=== PATIENT | female | born 2000 | race Caucasian/White ===

== ENCOUNTER 2024-12-16 18:16 | Outpatient (OUT) | payer OTHER, SELFPAY ==
--- NOTE | 2024-12-16 | XR_ITS ---
[facility] [place] [id number] Patient Name: AYDE MOYA MRN: [id number] date: 2000 Sex: F Assigned Patient Location: [facility] Current Patient Location: [facility] Accession/Order Number: [id number] Exam Date: 12/16/2024 21:36 Report Date: 12/16/2024 21:39 At the request of: NON-STAFF PHYSICIAN MD Procedure: XR scoliosis survey Plain film thoracolumbar assessment HISTORY: Fusion of spine involving thoracic and lumbar region. History of lump in the thoracic spine region for 2 months. Development of pain in this region. A BB marker placed. Thoracolumbar fusion hardware present. No hardware failure present. Moderate thoracolumbar scoliosis seen. No vertebral acute bony findings. The paraspinal abnormality. XR/XR scoliosis survey IMPRESSION: Intact hardware. thoracolumbar scoliosis without acute bony findings seen. No obvious soft tissue abnormalities correspond with palpable abnormality. Impression dictated by: Christian Martinez M.D.12/16/2024 9:39 PM Dictation Location: [employer] Electronically authenticated by: [id number] Y Date: 12/16/2024 21:39
== END 2024-12-16 18:17 | disposition home or self-care (01) ==
PROVIDERS: PCP Nurse Practitioner Family
DX: M43.25 Fusion of spine, thoracolumbar region (principal)
CPT/HCPCS: 72082

== ENCOUNTER 2025-07-30 10:47 | Outpatient (OUT) | payer OTHER, SELFPAY ==
--- OUTSIDE RECORDS SUMMARY | 2025-07-20 23:59 | XMS_ITS | Continuity of Care Document ---
Author Organization [facility] Address Unknown Care Team Providers Care Fuel Testing Technician Name Role Phone LEIDA SOLARES Primary Care Physician [phone] Encounter FT_FIN [id number] Date(s): 04/21/25 - 07/20/[address] [place], [place] [address] Encounter Diagnosis Unspecified injury at unspecified level of cervical spinal cord, initial encounter(Final) - Scoliosis, unspecified(Final) - Arthrodesis status(Final) - Discharge Disposition: Home (Routine DC) Attending Physician: ROSEMARY MAX Referring Physician: ROSEMARY MAX Encounter Type: Recurring Allergies, Adverse Reactions, Alerts SubstanceCriticalitySeverityReactionReaction SeverityStatusAugmentinVomiting Active Treatment Plan Future Scheduled Tests Radiology* CT Spine Cervical w/o Contrast 06/26/25 * CT Spine Thoracic w/o Contrast 06/26/25 * MRI Spine Cervical w/o Contrast 11/27/24 * MRI Spine Lumbar w/o Contrast 11/27/24 * MRI Spine Thoracic w/o Contrast 11/27/24 Immunizations Given and Recorded VaccineDateStatusRefusal Reasondiphtheria/pertussis, acel/tetanus adult5/10/24 Givendiphtheria/pertussis, acel/tetanus adult04/20/15Recordedvaricella virus vaccine06/17/08Recordedvaricella virus gpzflba52/13/02Recordedinfluenza, whole 07/27/07Recordedpoliovirus vaccine, inactivated02/10/06Recordedpoliovirus vaccine, daflanphror13/13/02Recordedpoliovirus vaccine, inactivated04/26/01Recorded poliovirus vaccine, inactivated01/24/01Recordedmeasles/mumps/rubella virus vaccine 02/10/06Recordedmeasles/mumps/rubella virus qfgfbuw15/13/02RecordedDTaP, unspecified formulation02/10/06RecordedDTaP, unspecified formulation03/10/04 RecordedDTaP, unspecified mkctmihbdwq27/13/02RecordedDTaP, unspecified formulation04/26/01RecordedDTaP, unspecified formulation01/24/01Recordedhepatitis B pediatric quqpkoa96/13/02Recordedhepatitis B pediatric vaccine01/24/01Recorded hepatitis B pediatric vaccine00RecordedHib, unspecified ecwoiukbuuq65/13/02 RecordedHib, unspecified formulation04/26/01RecordedHib, unspecified formulation 01/24/01Recorded Not Given VaccineDateStatusRefusal Reasoninfluenza virus vaccine, inactivated09/24/24Not GivenRefused by parent, guardian, or patient - rescheduleinfluenza virus vaccine, nsjztqxnipp80/3/23Not GivenPatient Refusesinfluenza virus vaccine, fojmtegydqh98/9/20Not GivenPatient Refuses Medications Adderall 10 mg oral tablet 10 mg, 1 tab(s), Oral, qAM, 30 tab(s), Refill(s) 0, 30 days, [facility]/pharmacy #[id number], 172.7, cm, 05/28/25 7:37:00 EDT, Height/Length Dosing, 82.3, kg, 05/28/25 7:37:00 EDT, Weight Dosing Start Date: 06/23/25 Status: Ordered Medication Dispense Status: Completed Quantity: 30.0 Unit: tab(s) Total Allowed Fills: 1 Fills Dispensed: 0 Indications: Attention-deficit hyperactivity disorder, unspecified type; Adderall XR 10 mg Cap-ER 10 mg = 1 cap(s), Oral, qAM, dx F98.8 30 day supply, # 30 cap(s), Refills(s) 0, [id number] 172.7, cm, 05/28/25 7:37:00 EDT, Height/Length Dosing, 82.3, kg, 05/28/25 7:37:00 EDT, Weight Dosing Start Date: 06/23/25 Status: Ordered Medication Dispense Status: Completed Quantity: 30.0 Unit: cap(s) Total Allowed Fills: 1 Fills Dispensed: 0 Indications: Attention-deficit hyperactivity disorder, unspecified type; Claritin 10 mg Tab 10 mg = 1 tab(s), Oral, Daily, # 30 tab(s), Refills(s) 11, [id number], 172.7, cm,04/29/25 19:05:00 EDT, Height/Length Dosing, 80.6, kg, 04/29/25 19:05:00 EDT, Weight Dosing Start Date: 05/13/25 Status: Ordered Medication Dispense Status: Completed Quantity: 30.0 Unit: tab(s) Total Allowed Fills: 12 Fills Dispensed: 0 Indications: Allergy, unspecified, initial encounter; doxepin 3 mg oral tablet 3 mg = 1 tab(s), Oral, Once a day (at bedtime), # 30 tab(s), Refills(s) 1, [id number], 172.7, cm, 05/28/25 7:37:00 EDT, Height/Length Dosing, 82.3, kg, 05/28/25 7:37:00 EDT, Weight Dosing Start Date: 05/28/25 Status: Ordered Medication Dispense Status: Completed Quantity: 30.0 Unit: tab(s) Total Allowed Fills: 2 Fills Dispensed: 0 Indications: Insomnia, unspecified; escitalopram 10 mg Tab 10 mg = 1 tab(s), Oral, Daily, Take with 20mg tab for total daily dose of 30mg, # 90 tab(s), Refills(s) 3, [id number], 168, cm, 03/06/25 11:42:00 EDT, Height/Length Dosing, 83.1, kg, 03/06/25 11:42:00 EDT, Weight Dosing Start Date: 04/14/25 Status: Ordered Medication Dispense Status: Completed Quantity: 90.0 Unit: tab(s) Total Allowed Fills: 4 Fills Dispensed: 0 gabapentin 100 mg Cap 100 mg = 1 cap(s), Oral, TID, take 100mg capsule with 300mg capsule to = 400mg po TID, # 90 cap(s),Refills(s) 11, [id number], 168, cm, 03/06/25 11:42:00 EDT, Height/Length Dosing, 83.1, kg, 03/06/25 11:42:00 EDT, Weight Dosing Start Date: 03/06/25 Status: Ordered Medication Dispense Status: Completed Quantity: 90.0 Unit: cap(s) Total Allowed Fills: 12 Fills Dispensed: 0 Indications: Polyneuropathy, unspecified; Unspecified injury at unspecified level of cervical spinal cord, initial encounter; Other muscle spasm; Scoliosis, unspecified; gabapentin 300 mg Cap 300 mg = 1 cap(s), Oral, TID, # 90 cap(s), Refills(s) 11, [id number], 168, cm, 03/06/25 11:42:00 EDT, Height/Length Dosing, 83.1, kg, 03/06/25 11:42:00 EDT, Weight Dosing Start Date: 03/06/25 Status: Ordered Medication Dispense Status: Completed Quantity: 90.0 Unit: cap(s) Total Allowed Fills: 12 Fills Dispensed: 0 Indications: Polyneuropathy, unspecified; hydrOXYzine hydrochloride 25 mg Tab 25 mg = 1 tab(s), Oral, QID, PRN for anxiety, # 40 tab(s), Refills(s) 4, [id number], 172, cm, 01/22/25 15:54:00 EDT, Height/Length Dosing, 88.7, kg, 01/22/25 15:54:00 EDT, Weight Dosing Start Date: 03/05/25 Status: Ordered Medication Dispense Status: Completed Quantity: 40.0 Unit: tab(s) Total Allowed Fills: 5 Fills Dispensed: 0 Indications: Anxiety disorder, unspecified; ibuprofen 800 mg Tab 800 mg = 1 tab(s), Oral, q8hr, PRN Pain/Fever, # 30 tab(s), Refills(s) 0, Pharmacy: [facility]/pharmacy #[id number], 172.7, cm, 04/29/25 19:05:00 EDT, Height/Length Dosing, 80.6, kg, 04/29/25 19:05:00 EDT, WeightDosing Start Date: 04/29/25 Status: Ordered Medication Dispense Status: Completed Quantity: 30.0 Unit: tab(s) Total Allowed Fills: 1 Fills Dispensed: 0 June Fe 10/07 oral tablet TAKE 1 TABLET BY MOUTH EVERY DAY Start Date: 04/21/22 Status: Ordered Medication Dispense Status: Completed Total Allowed Fills: 1 Fills Dispensed: 0 Lexapro 20 mg Tab 20 mg = 1 tab(s), Oral, Daily, Take with 10mg tab for total daily dose of 30mg, # 90 tab(s), Refills(s) 3, Pharmacy: [facility]/pharmacy #[id number], 168, cm, 03/06/25 11:42:00 EDT, Height/Length Dosing, 83.1, kg, 03/06/25 11:42:00 EDT, Weight Dosing Start Date: 04/14/25 Status: Ordered Medication Dispense Status: Completed Quantity: 90.0 Unit: tab(s) Total Allowed Fills: 4 Fills Dispensed: 0 Indications: Depression, unspecified; Percocet 7.5 mg-325 mg oral tablet 1 tab(s), Oral, BID, 60 tab(s), Refill(s) 0, [facility]/pharmacy #[id number], 168, cm, 03/06/25 11:42:00 EDT, Height/Length Dosing, 83.1, kg, 03/06/25 11:42:00 EDT, Weight Dosing Start Date: 04/14/25 Status: Ordered Medication Dispense Status: Completed Quantity: 60.0 Unit: tab(s) Total Allowed Fills: 1 Fills Dispensed: 0 Indications: Pain in thoracic spine; Scoliosis, unspecified; Zofran ODT 4 mg Tab-Dis 4 mg = 1 tab(s), Oral, q8hr, PRN Nausea/Vomiting, # 12 tab(s), Refills(s) 0, Pharmacy: [facility]/pharmacy#[id number], 172.7, cm, 05/25/25 14:28:00 EDT, Height/Length Dosing, 81, kg, 05/25/25 14:28:00 EDT, Weight Dosing Start Date: 05/25/25 Status: Ordered Medication Dispense Status: Completed Quantity: 12.0 Unit: tab(s) Total Allowed Fills: 1 Fills Dispensed: 0 Problem List ConditionConfirmationCourseEffective DatesStatusHealth StatusInformantGait abnormalityConfirmedActiveAnxiety disorder due to medical conditionConfirmed ResolvedAsthmaConfirmedActiveADHDConfirmedActiveAttention deficit hyperactivity disorder (ADHD), combined type, moderateConfirmedActiveBronchitisConfirmedActive Complex posttraumatic stress disorderConfirmedActiveDepressionConfirmedActive Encounter for family education about Adverse Childhood Experience questionnaire scoreConfirmedActiveBilateral hip painConfirmedActiveHistory of adverse childhood experiencesConfirmedActiveInattentionConfirmedResolvedEar infections ConfirmedResolvedInjury of cervical spineConfirmedActiveInsomniaConfirmedActive Insulin resistanceConfirmedActiveFoot lacerationConfirmedActiveModerate major depressionConfirmedActiveNerve damageConfirmedActiveNeuropathyConfirmedActive Cervical spine painConfirmedActiveThoracic spine painConfirmedActiveBattered adultConfirmedActiveBack pain with history of spinal surgeryConfirmedActive PregnancyConfirmed12/26/20 - 5218YnykcajrIvawmqnloPidufvkkt0/4/19 - 12/26/19 ResolvedFallsConfirmedActiveRelationship dysfunctionConfirmedActiveRight groin painConfirmedActiveScoliosisConfirmedResolvedScoliosisConfirmedActiveSmoker1 ConfirmedActiveStrep throatConfirmedActiveSuspected autism disorderConfirmed ActiveWartConfirmedActive 1Added secondary to documentation in Social History. Procedures ProcedureDateRelated DiagnosisBody SiteStatusTonsillectomyCompletedtubes in ears Completed Social History Social History TypeResponseSmoking StatusNever (less than 100 in lifetime) entered on: 10/19/25Birth SexFemaleSex RepresentationFemale (finding) 1occasional Patient Care team information Care Team Personnel Name: ROSEMARY MAX Position: FT Ambulatory - Primary Care - ANDRES Member Role: Primary Care Physician Address: [address] [facility] [address] [place] [address]- Telecom: Name: Isaiah Cantrell MD Position: FT OB/PEDS Hospital Provider Member Role: CHECK PILOT Physician Address: [address] [place] [address] [address] [place] [address]- Telecom: Care Team Related Persons Name: JOSHUA SERRANO Name: PATTIE TORIBIO Name: SANNA MOYA Insurance Providers Guarantor name: AYDE MOYA Health Plan Information #: 1 Payer: [employer] Payer Identifier: [id number] Member Number: [id number] Group Number: [id number] Subscriber Identifier: [id number] Relationship to Subscriber: self Coverage Type: MEDICAID Coverage Verification Date: 25 Telecom: [phone] Address: [facility] [address] [place] [address]
--- OUTSIDE RECORDS SUMMARY | 2025-07-29 14:00 | XMS_ITS | Encounter Summary ---
Author Organization [facility] Address [address] [place] [address] Care Team Providers Care Skin Toggler Name Role Phone Unallocated, Noms Provider Primary Care Provi otis Reason for Visit * ReasonCommentsPre-op Visit Encounter Details DateTypeDepartmentCare Team (Latest Contact Info)Pkhyukapkhq64/11/2025 2:00 PM ESTConsult RYLEY Ochoa OBGYN [address] [place] [address] Stevenson Kiser DO [address] [facility] [address] [place], [facility]11 Pre-op examination; Request for sterilization; Pelvic congestion syndrome Social History Tobacco UseTypesPacks/DayYears UsedDateSmoking Tobacco: NeverSmokeless Tobacco: NeverAlcohol UseStandard Drinks/WeekCommentsNever0 (1 standard drink = 0.6 oz pure alcohol)CommentsNoSex and Gender InformationValueDate RecordedSex Assigned at BirthNot on fileLegal GxaBerale23/15/2023 6:42 PM EDTGender Identity Not on fileSexual OrientationNot on filedocumented as of this encounter Last Filed Vital Signs Vital SignReadingTime TakenCommentsBlood Myovynwj507/6207/29/2025 2:02 PM EST Pulse--Temperature--Respiratory Rate--Oxygen Saturation--Inhaled Oxygen Concentration--Kbgxzx57.6 kg (171 lb)07/29/2025 2:02 PM GYGZkbphg437.3 cm (5' 9 )07/29/2025 2:02 PM ESTBody Mass Index25.25109/28/2024 2:02 PM ESTdocumented in this encounter Plan of Treatment DateTypeDepartmentCare Team (Latest Contact Info)Qsabtzqkids91/01/2025 11:30 AM ESTOffice Visit NOM[facility] [address] [place] [id number] Tamra Epstein PA [address] [facility] [place] [address] documented as of this encounter Visit Diagnoses Diagnosis Pre-op examination Request for sterilization Pelvic congestion syndrome documented in this encounter Care Teams Team MemberRelationshipSpecialtyStart DateEnd Date Unallocated, Noms MD Cathie [address] [place] [address] PCP - GeneralFamily Medicine10/12/23documented as of this encounter
--- OUTSIDE RECORDS SUMMARY | 2025-07-30 10:52 | XMS_ITS | Encounter Summary ---
Author Organization [facility] Address [address] [facility] [place] [address] Care Team Providers Care Hair Worker Name Role Phone Unallocated, Noms Provider Primary Care Provi otis Reason for Visit * ReasonOnset DateCommentsError (VOID this visit)07/16/2025 Encounter Details DateTypeDepartmentCare Team (Latest Contact Info)Yuxsskntxhe63/29/2025Refill RYLEY VINCENT [address] [place] [address] [place] [address] Zhane John LPN [address] [facility] [address] [place], [place] [address] Social History Tobacco UseTypesPacks/DayYears UsedDateSmoking Tobacco: NeverSmokeless Tobacco: NeverAlcohol UseStandard Drinks/WeekCommentsNever0 (1 standard drink = 0.6 oz pure alcohol)CommentsUnknownSex and Gender InformationValueDate Recorded Sex Assigned at BirthNot on fileLegal ZwvFzmjgp56/15/2023 6:42 PM EDTGender IdentityNot on fileSexual OrientationNot on filedocumented as of this encounter Plan of Treatment DateTypeDepartmentCare Team (Latest Contact Info)Gcnccslvjhx94/01/2025 11:30 AM ESTOffice Visit NOM[facility]ioleta [facility]ENT [address] [place] [address] [place] [address] Tamra Epstein PA [address] [facility] [address] [place], [facility]11 documented as of this encounter Visit Diagnoses Not on filedocumented in this encounter Care Teams Team MemberRelationshipSpecialtyStart DateEnd Date Unallocated, Noms Provider, [address] [place] [address] PCP - GeneralFamily Medicine10/12/23documented as of this encounter
--- OUTSIDE RECORDS SUMMARY | 2025-07-30 10:52 | XMS_ITS | Encounter Summary ---
Author Organization [facility] Address [address] [place] [address] Care Team Providers Care Pinsetter Mechanic Automatic Name Role Phone Unallocated, Noms Provider Primary Care Provi otis Encounter Details DateTypeDepartmentCare Team (Latest Contact Info)Xbxlhtcotbe56/11/2025amboo flowsheet RYLEY VINCENT [address] [place] [address] [place] [address] Stevenson Kiser DO [address] [facility] [address] [place], [place] [address] Social History Tobacco UseTypesPacks/DayYears UsedDateSmoking Tobacco: NeverSmokeless Tobacco: NeverAlcohol UseStandard Drinks/WeekCommentsNever0 (1 standard drink = 0.6 oz pure alcohol)CommentsNoSex and Gender InformationValueDate RecordedSex Assigned at BirthNot on fileLegal MtqOwjufo61/15/2023 6:42 PM EDTGender Identity Not on fileSexual OrientationNot on filedocumented as of this encounter Plan of Treatment DateTypeDepartmentCare Team (Latest Contact Info)Syofrlmmkcl46/01/2025 11:30 AM ESTOffice Visit RYLEY VINCENT [address] [facility] [place] [address] Tamra Epstein PA [address] [facility] [address] [place], [facility]11 documented as of this encounter Visit Diagnoses Not on filedocumented in this encounter Care Teams Team MemberRelationshipSpecialtyStart DateEnd Date Unallocated, [place] [address] PCP - GeneralFamily Medicine10/12/23documented as of this encounter
--- OUTSIDE RECORDS SUMMARY | 2025-07-30 10:52 | XMS_ITS | Clinical Summary ---
Author Organization [facility] Address [address] [place] [address] Care Team Providers Care Laboratory Operations Coordinator Name Role Phone Unallocated, Noms Provider Primary Care Provi otis Allergies Active AllergyReactionsCriticalityNoted DateCommentsAmoxicillin-Pot Clavulanate 04/24/2023 Other Reaction(s): Vomiting, Vomiting Mmgmszux63/04/2025 Medications MedicationSigDispense QuantityRefillsLast FilledStart DateEnd DateStatus amphetamine-dextroamphetamine XR (Adderall XR) 10 MG 24 hr capsule Take 10 mg by mouth in the morning.10/29/2024tive escitalopram (Lexapro) 10 MG tablet Take 10 mg by mouth DailyActive escitalopram (Lexapro) 20 MG tablet Take 20 mg by mouth DailyActive gabapentin (Neurontin) 300 MG capsule Take 300 mg by mouth in the morning and 300 mg in the evening and 300 mg before bedtime.5Active hydrOXYzine HCl (Atarax) 25 MG tablet Take 25 mg by mouth every 6 (six) hours if szprlu9802/10/2023ctive tiZANidine (Zanaflex) 4 MG tablet Take 4 mg by mouth every 4 (four) hours if termys7411/16/2023ctive Aurovela FE 10/07 1-20 MG-MCG tablet Indications: control counselingTAKE 1 TABLET BY MOUTH EVERY DAY IN THE MORNING 84 tablet 07/09/2025tive oxyCODONE-acetaminophen (Percocet) 7.5-325 MG tablet Take 1 tablet by mouth in the morning and 1 tablet in the evening and 1 tablet before bedtime.07/29/2025Discontinued(Therapy completed) norethindrone-ethinyl estradiol (Aurovela FE 1/20) 1-20 MG-MCG tablet Indications: control counselingTAKE 1 TABLET BY MOUTH EVERY DAY IN THE MORNING 84 tablet Discontinued levonorgestrel-ethinyl estradiol (Jolessa) 0.15-0.03 MG tablet Indications:Dysmenorrhea,Pelvic pain in female,Menorrhagia with irregular cycle Take 1 tablet by mouth Daily Take 1 tablet by mouth daily 84 tablet 5109/28/2024Discontinued(Therapy completed) megestrol (Megace) 20 MG tablet Indications:Pelvic congestion syndrome,Menorrhagia with irregular cycle,Pelvic pain in female,PCOS (polycystic ovarian syndrome)Take 1 tablet (20 mg total) by mouth Daily. Correct Script instructions: Take 1 tablet 2 times daily for 3 days then take 1 tablet daily for 1 month (36 tablets total) 36 tablet 51Expired Active Problems ProblemNoted DateDiagnosed DateDDD (degenerative disc disease), thoracolumbar 09/26/2023History of spinal qtogqv6609/26/2023 Encounters DateTypeDepartmentCare LbmnJwabvzkxjhm79/11/2025 2:00 PM ESTConsult [facility] [address] [place] [phone] Stevenson Kiser, Pre-op examination; Request for sterilization; Pelvic congestion uqoxucrg16/11/2025amboo flowsheet [facility] [address] [place] [phone] Stevenson Kiser, 07/16/2025Refill [facility] [address] [place] [phone] Zhane John LPN 07/06/20253376Udloqi62/17/2025Refill [facility] [address] [place] [phone] Stevenson Kiser, control yzsnypfflu22/29/2025 9:30 AM EDTAncillary Procedure [facility] [address] [place] [phone] PCOS (polycystic ovarian syndrome)06/11/2025Telephone [facility] [address] [place] [phone] Stevenson Kiser DO 06/02/2025 1:10 PM EDTOffice Visit [facility] [address] [place] [phone] Stevenosn Kiser DO PCOS (polycystic ovarian syndrome) (Primary Dx); Pelvic congestion syndrome; Follow-up exam06/02/2025amboo flowsheet [facility] [address] [place] [phone] Stevenson Kiser DO 05/26/2025bstract [facility] [address] [place] [address] Stevenson Kiser DO from Last 3 Months Family History Medical HistoryRelationNameCommentsDepressionBrotherAnxiety disorderFather DepressionFatherHeart attackFatherStrokeFatherlumbar degenerativeFather DepressionMotherdegenerative lumbarMotherOsteoporosisPaternal Grandmother DepressionSisterRelationNameStatusCommentsBrotherAliveFatherAliveMotherAlive Paternal GrandmotherDeceasedSisterAlive Social History Tobacco UseTypesPacks/DayYears UsedDateSmoking Tobacco: NeverSmokeless Tobacco: Never Tobacco Cessation:Counseling Given: Not Answered Alcohol UseStandard Drinks/WeekCommentsNever0 (1 standard drink = 0.6 oz pure alcohol)CommentsNoSex and Gender InformationValueDate RecordedSex Assigned at BirthNot on fileLegal AlaHckzke26/15/2023 6:42 PM EDTGender Identity Not on fileSexual OrientationNot on file Last Filed Vital Signs Vital SignReadingTime TakenCommentsBlood Akdjhcpe310/6207/29/2025 2:02 PM EST Pulse--Temperature--Respiratory Rate--Oxygen Saturation--Inhaled Oxygen Concentration--Ueooox24.6 kg (171 lb)07/29/2025 2:02 PM TOWVnfiry621.3 cm (5' 9 )07/29/2025 2:02 PM ESTBody Mass Index25.25109/28/2024 2:02 PM EST Plan of Treatment DateTypeDepartmentCare Team (Latest Contact Info)Xvmdxwoiyzy82/01/2025 11:30 AM ESTOffice Visit [facility] [address] [place] [phone] Tamra Epstein PA [address] [place] [address] Health MaintenanceDue DateLast DoneCommentsPneumococcal Vaccine: Pediatrics (0 to 5 Years) and At-Risk Patients (6 to 64 Years) (1 of 2 - PCV)2019COVID- 19 Vaccine ( season)2025Influenza Vaccine (#1)2025 07/27/2007 Procedures Procedure NamePriorityDate/TimeAssociated DiagnosisCommentsUS PELVIC COMPLETE W/ KQQirkaej81/29/2025 9:58 AM EDT PCOS (polycystic ovarian syndrome) from Last 3 Months Results * US Pelvis w/ TV (06/16/2025 9:58 AM EDT)Anatomical RegionLateralityModality PelvisUltrasoundSpecimen (Source)Anatomical Location / LateralityCollection Method / VolumeCollection TimeReceived Time06/16/2025 1:12 PM EDT Impressions 06/16/2025 1:38 PM EDT Normal pelvic ultrasound appearance TRANSCRIBED BY: ? ELECTRONICALLY SIGNED BY: Logan Diaz MD Narrative 06/16/2025 1:38 PM EDT FINDINGS: Uterus ? 9.4 x 3.5 x 4.5 cm Endometrium ?3 mm Right ovary ? 2.2 x 1.8 x 2.2 cm Left ovary ?2.2 x 1.5 x 2.6 cm The uterus is normal in size and orientation. ??No worrisome mass lesions are seen. ??Endometrium appears unremarkable. ??No fluid is seen within the cul-de-sac. ??Both ovaries appear normal for thisage. Procedure Note Logan Diaz MD - 06/16/2025 FINDINGS: Uterus 9.4 x 3.5 x 4.5 cm Endometrium 3 mm Right ovary 2.2 x 1.8 x 2.2 cm Left ovary 2.2 x 1.5 x 2.6 cm The uterus is normal in size and orientation. No worrisome mass lesionsare seen. Endometrium appears unremarkable. No fluid is seen within cndpqr-yx-pju. Both ovaries appear normal for this age. IMPRESSION: Normal pelvic ultrasound appearance TRANSCRIBED BY: ELECTRONICALLY SIGNED BY: Logan Diaz MD Authorizing ProviderResult TypeResult StatusKrsintia Garcia NPIMG US PROCEDURES Final Result from Last 3 Months Insurance Care Teams Team MemberRelationshipSpecialtyStart DateEnd Date Unallocated, Noms MD [address] [place], [place] [phone] [facility]
--- NOTE | 2025-07-30 11:15 | XR_ITS ---
The [address] [address] Patient Name: AYDE MOYA MRN: [id number] date: 2000 Sex: F Assigned Patient Location: [facility] Current Patient Location: [facility] Accession/Order Number: [id number] Exam Date: 07/30/2025 11:25 Report Date: 07/30/2025 12:12 At the request of: FELIPA BERNARDO DO Procedure: XR chest 2V PA AND LATERAL CHEST: CLINICAL HISTORY: Preoperative clearance . History of tobacco use. COMPARISON: None There is no focal parenchymal consolidation, effusion or pneumothorax. The cardiac, hilar and mediastinal silhouettes are within normal limits. There is no vascular congestion. There is S-shaped thoracolumbar scoliotic curvature and Crandall rods. XR/XR chest 2V IMPRESSION: NO ACUTE CARDIOPULMONARY ABNORMALITY. Impression dictated by: Guillermina Lopez M.D. 07/30/2025 12:12 PM Dictation Location: [place] [address] Electronically authenticated by: [id number] Y Date: 07/30/2025 12:12
--- NOTE | 2025-07-30 11:15 | ECG_ITS ---
The [facility] Test Date: 2025-07-30 Pat Name: AYDE MOYA Department: Room: - Gender: Female Medical Collections: : 2000 Requested By: FELIPA BERNARDO Order Number: [id number] Reading MD: KANE TORRES Measurements Intervals Rittman Rate: 48 P: 49 RI: 118 QRS: 65 QRSD: 99 T: 70 QT: 465 QTc: 417 Interpretive Statements MARKED SINUS BRADYCARDIA WITH SINUS ARRHYTHMIA WITH SHORT RI INTERVAL POSSIBLE RIGHT VENTRICULAR CONDUCTION DELAY [RSR (QR) IN V1/V2] No previous ECG available for comparison Electronically Signed On 07-30-2025 12:27:13 EST by KANE TORRES
--- OUTSIDE RECORDS SUMMARY | 2025-07-30 11:17 | XMS_ITS | CCD ---
Author Organization [facility] Care Team Providers Care Press Writer Name Role Phone REYNOLDSABELIN Unavailable Unavailable REYNOLDS, MONTY Unavailable Unavailable VOSLER, DUNG Unavailable Unavailable REYNOLDS, MONTY Unavailable Unavailable REYNOLDS, MONTY Unavailable Unavailable VOSLER, DUNG Unavailable Unavailable VOSLER, DUNG Unavailable Unavailable VOSLER, DUNG Unavailable Unavailable REYNOLDS, MONTY Unavailable Unavailable REYNOLDS, MONTY Unavailable Unavailable DUSTIN HUERTA Unavailable Unavailable VOSLER, DUNG Unavailable Unavailable VOSLER, DUNG Unavailable Unavailable JOHN BANDA Unavailable Unavailable REYNOLDS, MONTY Unavailable Unavailable VOSLER, DUNG Unavailable Unavailable VOSLER, DUNG Unavailable Unavailable VOSLER, DUNG Unavailable Unavailable REYNOLDS, MONTY Unavailable Unavailable REYNOLDS, MONTY Unavailable Unavailable VOSLER, DUNG Unavailable Unavailable VOSLER, DUNG Unavailable Unavailable REYNOLDS, MONTY Unavailable Unavailable VOSLER, DUNG Unavailable Unavailable REYNOLDS, MONTY Unavailable Unavailable REYNOLDS, MONTY Unavailable Unavailable VOSLER, DUNG Unavailable Unavailable REYNOLDS, MONTY Unavailable Unavailable REYNOLDS, MONTY Unavailable Unavailable VOSLER, DUNG Unavailable Unavailable VOSLER, DUNG Unavailable Unavailable REYNOLDS, MONTY Unavailable Unavailable VOSLER, DUNG Unavailable Unavailable VOSLER, DUNG Unavailable Unavailable REYNOLDS, MONTY Unavailable Unavailable VOSLER, DUNG Unavailable Unavailable REYNOLDS, MONTY Unavailable Unavailable REYNOLDS, MONTY Unavailable Unavailable KELSI, LORETTA B Unavailable Unavailable KELSI, LORETTA B Unavailable Unavailable DUNG QUICK S Unavailable Unavailable DR STEVENSON KISER Admitting Unavailable MARGI, DR LEO Attending Unavailable FLORA, DR BRITANY Mcdaniel Primary Care Unavailable MARGI, DR LEO Consulting Unavailable Lenny Gutiérrez Consulting Unavailable MARGI, DR LEO Admitting Unavailable MARGI, DR LEO Attending Unavailable FLORA, DR BRITANY Mcdaniel Primary Care Unavailable MARGI, DR LEO Consulting Unavailable MARGI, DR LEO Admitting Unavailable MARGI, DR LEO Attending Unavailable FLORA, DR BRITANY Mcdaniel Primary Care Unavailable MARGI, DR LEO Consulting Unavailable MARGI, DR LEO Admitting Unavailable MARGI, DR LEO Attending Unavailable FLORA, DR BRITANY Mcdaniel Primary Care Unavailable MARGI, DR LEO Consulting Unavailable ZIEBER, DR HUBER Fernandes Consulting Unavailable MARGI, DR LEO Procedure Practitioner Unavailab MINGO Saxena Consulting Unavailable MARGI, DR LEO Admitting Unavailable MARGI, DR LEO Attending Unavailable FLORA, DR BRITANY Mcdaniel Primary Care Unavailable MARGI, DR LEO Admitting Unavailable MARGI, DR LEO Attending Unavailable REQUEST, DR CARMINE LISTED Primary Care Unavaila bhumika WEST, DR SANDEE May Consulting Unavailable MARGI, DR LEO Consulting Unavailable Britany HINES Primary Care Physician Annabel ORDOÑEZ, Christopher Maddox Unavailable Bianka Woods MD Primary Care Provider Bianka WOODS Primary Care Physician Annabel FURNITURE REPAIR TECHNICIAN.PLASTIC PANEL INSTALLER, Christopher W Unavailable Unallocated, Noms Provider Primary Care Provider Bianka Woods MD Primary Care Provider Ilya Patel Attending Unavailable Jacey Ponce Attending Unavailable Jacey Ponce Attending Unavailable Clare Vazquez Attending Unavailable Clare Vazquez Attending Unavailable Candelario Wilhelm Attending Unavailable Ilya Patel Attending Unavailable Ilya Patel Attending Unavailable RU, TIAGO Smith Attending Unavailable RU, TIAGO Smiht Attending Unavailable RU, TIAGO Smith Attending Unavailable RU, TIAGO Smith Attending Unavailable RU, TIAGO Carlton E Attending Unavailable Jacey Ponce Attending Unavailable Jacey Ponce Attending Unavailable Jacey Ponce Attending Unavailable RU, TIAGO Smith Attending Unavailable ROBJOI, TIAGO Smith Attending Unavailable ROBJOI, TIAGO Carlton E Attending Unavailable Jacey Ponce Attending Unavailable Jacey Ponce Attending Unavailable Britany HINES Attending Unavailable LEIDA SOLARES Primary Care Physician [phone] Jacey Ponce Attending Unavailable Jacey Ponce Attending Unavailable Jacey Ponce Attending Unavailable CIERSEZIRIS, RADIOSONDE SPECIALIST-C LEIDA R Attending Unav ailable CIERSGIANLUCA RADIOSONDE SPECIALIST-C LEIDA R Referring Unav ailable CIERSEZWSKI, RADIOSONDE SPECIALIST-C LEIDA R Admitting Unav ailable CIERSEZWSKI, RADIOSONDE SPECIALIST-C LEIDA R Attending Unav ailable Bianka WOODS Admitting Unavailable Bianka WOODS Attending Unavailable Bianka WOODS Referring Unavailable CIERSEZIRIS, RADIOSONDE SPECIALIST-C LEIDA R Admitting Unav ailable CIERSEZWSKI, RADIOSONDE SPECIALIST-C LIEDA R Attending Unav ailable CIERSGIANLUCA RADIOSONDE SPECIALIST-C LEIDA Fernandes Attending Unav ailable CIERSEZIRIS RADIOSONDE SPECIALIST-C LEIDA R Admitting Unav ailable Blaze Bailey Attending Unavailable CIERSEZIRIS RADIOSONDE SPECIALIST-C LEIDA R Attending Unav ailable CIERSGIANLUCA RADIOSONDE SPECIALIST-C LEIDA Fernandes Attending Unav ailable CIERSEZIRIS RADIOSONDE SPECIALIST-C LEIDA R Attending Unav ailable CIERSEZIRIS RADIOSONDE SPECIALIST-C LEIDA R Attending Unav ailable CIERSEZIRIS RADIOSONDE SPECIALIST-C LEIDA Fernandes Attending Unav ailable Jacey Ponce Attending Unavailable Jacey Ponce Attending Unavailable Jacey Ponce Attending Unavailable Jacey Ponce Attending Unavailable Unallocated , Noms Provider Primary Care Provi otis TINY BENSON Referring Unavailable ROBUCK, BIANKA Primary Care Unavailable TINY BENSON Referring Unavailable ROBUCK, BIANKA Primary Care Unavailable SUMEET DE LA CRUZ Attending Unavailable PHILLIP SHAH Referring Unavailable ROBUCK, BIANKA Primary Care Unavailable Griselda PhD, Payton Attending Unavailab kalen Villalobos PhD, Payton Unavailable Unavailab Candelario Recio Attending Unavailable DEMETRIUS GALDAMEZ Attending Unavailable JOSHUA GARCIA Attending Unavailable STEVENSON KISER Attending Unavailable JOSHUA GARCIA Referring Unavailable LEIDA SOLARES Attending Unavailbernadette e LEIDA SOLRAES Attending Unavailabl e LEIDA SOLARES Attending Candelario Dickinson Attending Unavailable Tiny Srivastava Attending LEIDA De Paz Attending LEIDA Lake Attending LEIDA Lake Attending LEIDA Lake Attending LEIDA Lake Attending LEIDA Lake Referring Candelario Dickinson Attending LEIDA De Paz Attending LEIDA Lake Attending Silverio e Allergies Allergy ClassificationReported Allergen(s)Allergy TypeDate of OnsetReaction(s) FacilityAmoxicillin / Clavulanate (1 source)Amoxicillin / Clavulanate; Translations: [amoxicillin-clavulanate]Drug AllergyVomiting (disorder)[facility] (20 sources)AMOXICILLIN-POT CLAVULANATE; Translations: [AMOXICILLIN-POT CLAVULANATE]Propensity to adverse reactions to drug (disorder)[id number] ([facility] source)cefdinirDrug Pdrfahz52-06-1727[facility] ([facility] sources)Amoxicillin / Clavulanate; Translations: [amoxicillin-clavulanate] Drug AllergyVomiting (disorder)[facility] (5 sources)cefdinirDrug [id number] Medications Current Medications MedicationDrug Class(es)DatesSig (Normalized)Sig (Original)acetaminophen 500 mg oral tablet (19 sources)Start: 12-84-7087gosc 2 tablets enteral route every six hours as neededacetaminophen (TYLENOL) 500 mg tablet 2 tablets by ORAL/FEEDING TUBE route every 6 hours as needed for pain. 07/15/2023 ActiveComment on above:2 tablets by ORAL/FEEDING TUBE route every 6 hours as needed for pain.acetaminophen 325 mg / oxyCODONE hydrochloride 7.5 mg oral tablet (16 sources)Opioid AgonistStart: 68-85-1889Zabskevv 7.5 mg-325 mg oral tablet 1 tab(s), Oral, BID, 60 tab(s), Refill(s) 0, [id number],168, cm, 03/06/25 11:42:00 EDT, Height/Length Dosing, 83.1, kg, 03/06/25 11:42:00 EDT, Weight Dosing Start Date: 04/14/25 Status: Ordered Quantity: 60.0 Unit: tab(s) Repeat number: 1 Indications: Painin thoracic spine; Scoliosis, unspecified;Start: 37-29-4834Ezetequn 7.5 mg-325 mg oral tablet 1 tab(s), Oral, Daily, 30 tab(s), Refill(s) 0, [id number], 168, cm, 03/06/25 11:42:00 EDT, Height/Length Dosing, 83.1, kg, 03/06/25 11:42:00 EDT, Weight Dosing Start Date: 03/06/25 Status: Ordered Quantity: 30.0 Unit: tab(s) Repeat number: 1 Indications: Pain in thoracic spine; Scoliosis, unspecified;Start: 48-49-4708Wkhjxzvm 7.5 mg-325 mg oral tablet 1 tab(s), Oral, Daily, 30 tab(s), Refill(s) 0, [id number] , 172, cm, 01/22/25 15:54:00 EDT, Height/Length Dosing, 88.7, kg, 01/22/25 15:54:00 EDT, Weight Dosing Start Date: 02/17/25 Status: Ordered Quantity: 30.0 Unit: tab(s) Repeat number: 1 Indications: Pain in thoracic spine; Scoliosis, unspecified;Start: 00-98-5115hpcabekdhcpnf-oxycodone 325 mg-5 mg Tab Refill(s) 0 Start Date: 07/20/23 Status: OrderedStart: 30-49-4260gqhzzejqgwils-oxycodone 325 mg-5 mg Tab 1 tab(s), Oral, q4hr for pain, 8 tab(s), Refill(s) 0, [id number], 175.3, cm, 02/08/23 18:27:00 EDT, Height/Length Dosing, 93, kg, 05/24/23 18:27:00 EDT, Weight Dosing Start Date: 02/08/23 Status: Orderedtake 1 tablet by mouth in the morning, then take 1 tablet by mouth in the evening, then take 1 tablet by mouth at bedtimeoxyCODONE-acetaminophen (Percocet) 7.5-325 MG tablet Take 1 tablet by mouth in the morning and 1 tablet in the evening and 1 tablet before bedtime. Activeamphetamine aspartate 2.5 mg / amphetamine sulfate 2.5 mg / dextroamphetamine saccharate 2.5 mg / dextroamphetamine sulfate 2.5 mg oral tablet (20 sources)Central Nervous System StimulantStart: 93-42-6524Adainipc 10 mg oral tablet 10 mg, 1 tab(s), Oral, qAM, 30 tab(s), Refill(s) 0, 30 days, [facility]/pharmacy #[id number], 172.7, cm, 05/28/25 7:37:00 EDT, Height/Length Dosing, 82.3, kg, 05/28/25 7:37:00 EDT, Weight Dosing Start Date: 06/23/25 Status: Ordered Quantity: 30.0 Unit: tab(s) Repeat number: 1 Indications: Attention-deficit hyperactivity disorder, unspecified type;Start: 97-98-3923jcux 1 capsule by mouth once daily in the morningAdderall XR 10 mg Cap-ER 10 mg = 1 cap(s), Oral, qAM, dx F98.8 30 day supply, # 30 cap(s), Refills(s) 0, Pharmacy: [facility]/pharmacy #[id number], 172.7, cm, 05/28/25 7:37:00 EDT, Height/Length Dosing, 82.3, kg,05/28/25 7:37:00 EDT, Weight Dosing Start Date: 06/23/25 Status: Ordered Quantity: 30.0 Unit: cap(s)Repeat number: 1 Indications: Attention-deficit hyperactivity disorder, unspecified type;Start: 87-11-0693Ucjyuwqm 10 mg oral tablet 10 mg, 1 tab(s), Oral, qAM, 30 tab(s), Refill(s) 0, 30 days, [facility]/pharmacy #[id number], 172.7, cm, 04/29/25 19:05:00 EDT, Height/Length Dosing, 80.6, kg, 04/29/25 19:05:00 EDT, Weight Dosing Start Date: 05/22/25 Status: Ordered Quantity: 30.0 Unit: tab(s) Repeat number: 1 Indications: Attention-deficit hyperactivity disorder, unspecified type;Start: 42-44-8354Cdebnkua 10 mg oral tablet 10 mg, 1 tab(s), Oral, qAM, 30 tab(s), Refill(s) 0, [id number], 168, cm, 03/06/25 11:42:00 EDT, Height/Length Dosing, 83.1, kg, 03/06/25 11:42:00 EDT, Weight DosingStart Date: 04/14/25 Status: Ordered Quantity: 30.0 Unit: tab(s) Repeat number: 1 Indications: Attention-deficit hyperactivity disorder, unspecified type;Start: 64-83-2393Hqvrqidf 10 mg oral tablet 10 mg, 1 tab(s), Oral, qAM, 30 tab(s), Refill(s) 0, [id number], 168, cm, 03/06/25 11:42:00 EDT, Height/Length Dosing, 83.1, kg, 03/06/25 11:42:00 EDT, Weight DosingStart Date: 03/18/25 Status: Ordered Quantity: 30.0 Unit: tab(s) Repeat number: 1 Indications: Attention-deficit hyperactivity disorder, unspecified type;Start: 10-29-2024 Adderall 10 mg oral tablet 10 mg, 1 tab(s), Oral, qAM, 30 tab(s), Refill(s) 0, [id number], 172, cm, 01/22/25 15:54:00 EDT, Height/Length Dosing, 88.7, kg, 01/22/25 15:54:00 EDT, Weight DosingStart Date: 02/19/25 Status: Ordered Quantity: 30.0 Unit: tab(s) Repeat number: 1 Indications: Attention-deficit hyperactivity disorder, unspecified type;Start: 47-77-1620dutg 1 capsule by mouth in the morning, then take 1 capsule by mouth every twenty-four hours amphetamine-dextroamphetamine XR (Adderall XR) 10 MG 24 hr capsule Take 10 mg by mouth in the morning. 10/29/2024 ActiveStart: 28-74-1510Mhwdgevj 10 mg oral tablet 10 mg, 1 tab(s), Oral, BID, 60 tab(s), Refill(s) 0, [facility]/pharmacy #[id number], 1 72, cm, 09/24/24 8:39:00 EST, Height/Length Dosing, 95.8, kg, 09/24/24 8:39:00 EST, Weight Dosing Start Date: 09/24/24 Status: OrderedStart: 72-99-4002Krmqzpte 5 mg oral tablet 5 mg, 1 tab(s), Oral, BID, 60 tab(s), Refill(s) 0, [facility]/pharmacy #[id number], 172.7, cm, 08/29/24 14:55:00 EST, Height/Length Dosing, 98.2, kg, 08/29/24 14:55:00 EST, Weight DosingStart Date: 08/29/24 Status: Ordered azithromycin 250 mg oral tablet (2 sources)Macrolide AntimicrobialStart: 05-28-2025 End: 98-04-8485Ryjmpqdtu 250 mg Tab = 1 packet(s), Oral, As Directed, as directed on package labeling, X 5 day(s),# 6 tab(s), Refills(s) 0, [id number] 172.7, cm, 05/28/25 7:37:00 EDT, Height/Length Dosing, 82.3, kg, 05/28/25 7:37:00 EDT, Weight Dosing Start Date: 05/28/25 Stop Date: 06/02/25 Status: Ordered Quantity: 6.0 Unit: tab(s) Repeat number: 1 Indications: Bronchitis, not specified as acute or chronic;Start: 05-13-2025 End: 28-75-6481Ekfawhhwg 250 mg Tab = 1 packet(s), Oral, As Directed, as directed on package labeling, X 5 day(s),# 6 tab(s), Refills(s) 0, Pharmacy: [facility]/pharmacy #[id number], 172.7, cm, 04/29/25 19:05:00 EDT, Height/Length Dosing, 80.6, kg, 04/29/25 19:05:00 EDT, Weight Dosing Start Date: 05/13/25 Stop Date: 05/18/25 Status: Ordered Quantity: 6.0 Unit: tab(s) Repeat number: 1 Indications: Acute pharyngitis, unspecified;bacitracin 0.5 unt/mg topical ointment (1 source)Start: 05-25-2025 End: 41-36-1668jwzwsixdsi Top 500 units/g Oint 30 gram 1 john, Topical, QID for 5 day(s), 15 gm, Refill(s) 0, [facility]/pharmacy #[id number], 172.7, cm, 05/25/25 14:28:00 EDT, Height/Length Dosing, 81, kg, 05/25/25 14:28:00 EDT, Weight Dosing Start Date: 05/25/25 Stop Date: 05/30/25 Status: Ordered Quantity: 15.0 Unit: g Repeat n umber: 1cane (1 source)Start: 10-84-8956nkrjhvunhz 500 mg oral capsule (2 sources)Cephalosporin AntibacterialStart: 05-25-2025 End: 37-42-1507migt 1 capsule by mouth every eight hoursKeflex 500 mg Cap 500 mg = 1 cap(s), Oral, q8hr, X 5 day(s), # 15 cap(s), Refills(s) 0, Pharmacy: [facility]/pharmacy #[id number], 172.7, cm, 05/25/25 14:28:00 EDT, Height/Length Dosing, 81, kg, 05/25/25 14:28:00EDT, Weight Dosing Start Date: 05/25/25 Stop Date: 05/30/25 Status: Ordered Quantity: 15.0 Unit: cap(s) Repeat number: 1Start: 02-13-2024 End: 64-74-6817jirn 1 capsule by mouth every twelve hoursKeflex 500 mg Cap 500 mg = 1 cap(s), Oral, q12hr, X 7 day(s), # 14 cap(s), Refills(s) 0, Pharmacy: [facility]/pharmacy #[id number], 172.7, cm, 02/13/24 12:50:00 EDT, Height/Length Dosing, 97, kg, 02/13/24 12:50:00 EDT, Weight Dosing Start Date: 02/13/24 Stop Date: 02/20/24 Status: OrdereddiazePAM 10 mg oral tablet (6 sources)BenzodiazepineStart: 84-76-9509jtpx 1 tablet by mouth onceValium 10 mg Tab = 1 tab(s), Oral, Once, Refills(s) 0 Start Date: 01/20/25 Status: Ordered Repeat number: 1Start: 37-39-3726grmg 1 tablet by mouth once as needed for anxietyValium 10 mg Tab 10 mg = 1 tab(s), Oral, Once, PRN for anxiety, # 1 tab(s), Refills(s) 0, Pharmacy:[facility]/pharmacy #[id number], 172, cm, 09/24/24 8:39:00 EST, Height/Length Dosing, 95.8, kg, 09/24/24 8:39:00EST, Weight Dosing Start Date: 09/24/24 Status: Ordereddiclofenac sodium 75 mg delayed release oral tablet (18 sources)Nonsteroidal Anti-inflammatory DrugStart: 97-03-6006owrm 1 tablet by mouth twice dailydiclofenac sodium 75 mg Oral EC Tab 75 mg = 1 tab(s), Oral, BID, # 60 tab(s), Refills(s) 11, Pharmacy: [facility]/pharmacy #[id number], 175.3, cm, 04/11/23 15:31:00 EDT, Height/Length Dosing, 93.3, kg, 04/11/23 15:31:00 EDT, Weight Dosing Start Date: 05/16/23 Status: OrderedStart: 74-24-9738vnyg 1 tablet by mouth every twelve hoursdiclofenac, EC, (VOLTAREN) 75 mg EC tablet Take 1 tablet by mouth every 12 hours. 0 04/18/2023 ActiveComment on above:Take 1 tablet by mouth every 12 hours.docusate sodium 50 mg / sennosides, fpc 8.6 mg oral tablet (19 sources)Start: 46-41-8613wcwv 2 tablets by mouth twice daily in the evening senna-docusate (SENNA-S) 8.6-50 mg per tablet Take 2 tablets by mouth two times a day. 20 tablet 07/15/2023 2:28 PM EDT 07/15/2023 ActiveComment on above:Take 2 tablets by mouth two times a day.doxepin 3 mg oral tablet (2 sources)Tricyclic AntidepressantStart: 61-29-7369mqls 1 tablet by mouth once daily at bedtimedoxepin 3 mg oral tablet 3 mg = 1 tab(s), Oral, Once a day (at bedtime), # 30 tab(s), Refills(s) 1,[id number] 172.7, cm, 05/28/25 7:37:00 EDT, Height/Length Dosing, 82.3, kg, 05/28/25 7:37:00 EDT, Weight Dosing Start Date: 05/28/25 Status: Ordered Quantity: 30.0 Unit: tab(s) Repeat number: 2 Indications: Insomnia, unspecified;escitalopram 10 mg oral tablet (20 sources)Serotonin Reuptake InhibitorStart: 19-97-4429Jxebjxe 20 mg Tab 20 mg = 1 tab(s), Oral, Daily, Take with 10mg tab for total daily dose of 30mg, #90 tab(s), Refills(s) 3, [id number] 168, cm, 03/06/25 11:42:00 EDT, Height/Length Dosing, 83.1, kg, 03/06/25 11:42:00 EDT, Weight Dosing Start Date: 04/14/25 Status: Ordered Quantity: 90.0 Unit: tab(s) Repeat number: 4 Indications: Depression, unspecified;Start: 01-08-1091cfdnghfbzsug oxalate (LEXAPRO) 20 mg tablet Take 30 mg by mouth every afternoon. 04/11/2023 Active Start: 30-49-0130qusazdoupyac 10 mg Tab 10 mg = 1 tab(s), Oral, Daily, Take with 20mg tab for total daily dose of 30mg, # 90 tab(s), Refills(s) 3, [id number] 168, cm, 03/06/25 11:42:00 EDT, Height/Length Dosing, 83.1, kg, 03/06/25 11:42:00 EDT, Weight Dosing Start Date: 04/14/25 Status: Ordered Raj ntity: 90.0 Unit: tab(s) Repeat number: 4Start: 19-77-1051mdsk 1 tablet by mouth once dailyLexapro 5 mg oral tablet 5 mg = 1 tab(s), Oral, Daily, # 30 tab(s), Refills(s) 5, Pharmacy: [facility]/pharmacy #[id number], 180, cm, 04/21/22 15:10:00 EDT, Height/Length Dosing, 93.1, kg, 04/21/22 15:10:00 EDT, Weight Dosing Start Date: 04/21/22 Status: OrderedComment on above:Take 1 tablet by mouth every afternoon. Ethinyl Estradiol / Ferrous fumarate / Norethindrone (20 sources)EstrogenStart: 39-62-8516lcrofbzjjqpfj-ethinyl estradiol (Aurovela FE 10/07) 1-20 MG-MCG tablet Indications: control counseling TAKE 1 TABLET BY MOUTH EVERY DAY IN THE MORNING 84 tablet 03/28/2025 ActiveStart: 04-15-2024 norethindrone-ethinyl estradiol (10/07) 1-20 MG-MCG tablet Indications: control counseling Take 1 tablet by mouth in the morning. 28 tablet 12 04/15/2024 ActiveStart: 53-58-0676Tgytr Fe 1/20 oral tablet Refill(s) 0 Start Date: 07/20/23 Status: OrderedStart: 72-64-7823ajjb 1 tablet by mouth once daily in the morningJunel FE /20 1-20 MG-MCG tablet Indications: control counseling TAKE 1 TABLET BY MOUTH EVERYDAY IN THE MORNING 28 tablet 12 04/26/2023 ActiveStart: 60-44-1071eghs 1 tablet by mouth once dailyJunel Fe 1/20 oral tablet TAKE 1 TABLET BY MOUTH EVERY DAY Start Date: 04/21/22 Status: Ordered Repeat number: 1Start: 12-80-9913wwqu 1 tablet by mouth once daily, then take 0.05 tablet by mouth onceNorethin Caden-Eth Estrad-FE (10/07, 28,) 1 mg-20 mcg (21)/75 mg (7) per tablet TAKE 1 TABLETBY MOUTH EVERY DAY 04/21/2022 Active Start: 31-00-4301jzhf 1 tablet by mouth once daily, then take 0.05 tablet by mouth onceNorethin Caden-Eth Estrad-FE (,) 1 mg-20 mcg (21)/75 mg (7) per tablet TAKE 1 TABLETBY MOUTH EVERY DAY 0 04/21/2022 ActiveComment on above: TAKE 1 TABLET BY MOUTH EVERY DAYEthinyl Estradiol / Levonorgestrel (5 sources)Progestin, Estrogen, Progestin-containing Intrauterine DeviceStart: 04-21-2025 End: 36-43-8163kzun 1 tablet by mouth once daily, then take 1 tablet by mouth once dailylevonorgestrel-ethinyl estradiol (Jolessa) 0.15-0.03 MG tablet Indications: Dysmenorrhea , Pelvic pain in female , Menorrhagia with irregular cycle Take 1 tablet by mouth Daily Take 1 tablet by mouthdaily 84 tablet 3 04/21/2025 07/14/2025 Activefluocinolone acetonide 0.25 mg/ml topical cream (1 source)CorticosteroidStart: 43-85-5079vywedjaesfwr Top 0.025% Crm 1 john, Topical, Daily, 60 gram, Refill(s) 1, apply small amount to warts daily and cover with dry dressing., [facility]/pharmacy #[id number], 172, cm, 09/24/24 8:39:00 EST, Height/Length Dosing, 95.8, kg, 09/24/24 8:39:00 EST, Weight Dosing Start Date: 10/07/24 Status: Orderedgabapentin 300 mg oral capsule (20 sources)Anti-epileptic AgentStart: 58-16-1926wviptlapoa 100 mg Cap 100 mg = 1 cap(s), Oral, TID, take 100mg capsule with 300mg capsule to = 400mg po TID, # 90 cap(s), Refills(s) 11, Pharmacy: [facility]/pharmacy #[id number], 168, cm, 03/06/25 11:42:00 EDT, Height/Length Dosing, 83.1, kg, 03/06/25 11:42:00 EDT, Weight Dosing Start Date: 03/06/25 Status: Ordered Quantity: 90.0 Unit: cap(s) Repeat number: 12 Indications: Polyneuropathy, unspecified; Unspecified injury at unspecified level of cervical spinal cord, initial encounter; Other muscle spasm; Scoliosis, unspecified;Start: 19-09-9813vqpl 1 capsule by mouth three times dailygabapentin 300 mg Cap 300 mg = 1 cap(s), Oral, TID, # 90 cap(s), Refills(s) 11, [id number] 168, cm, 03/06/25 11:42:00 EDT, Height/Length Dosing, 83.1, kg, 03/06/25 11:42:00 EDT, Weight Dosing Start Date: 03/06/25 Status: Ordered Quantity: 90.0 Unit: cap(s) Repeat number: 12 Indicat ions: Polyneuropathy, unspecified;Start: 81-97-4891yvxh 1 capsule by mouth three times dailygabapentin 100 mg Cap 100 mg = 1 cap(s), Oral, TID, # 90 cap(s), Refills(s) 3, Pharmacy: [facility]/pharmacy #[id number], 172, cm, 09/24/24 8:39:00 EST, Height/Length Dosing, 95.8, kg, 09/24/24 8:39:00 EST, Weight Dosing Start Date: 10/17/24 Status: Orderedhandicap placard (1 source)Start: 09-52-5304zuhfASVoywg hydrochloride 25 mg oral tablet (20 sources)AntihistamineStart: 28-55-5066kuzg 1 tablet by mouth four times daily as needed for anxietyhydrOXYzine hydrochloride 25 mg Tab 25 mg = 1 tab(s), Oral, QID, PRN for anxiety, # 40 tab(s), Refills(s) 4, [id number] 172, cm, 01/22/25 15:54:00 EDT, Height/Length Dosing, 88.7, kg, 01/22/25 15:54:00 EDT, Weight Dosing Start Date: 03/05/25 Status: Ordered Quantity: 40.0 Unit: tab(s) Repeat number: 5 Indications: Anxiety disorder, unspecified;Start: 26-22-1855bloq 1 tablet by mouth every six hours as neededhydrOXYzine HCl (Atarax) 25 MG tablet Take 25 mg by mouth every 6 (six) hours if needed 02/10/2023 ActiveStart: 52-44-2033vtbm 1 tablet by mouth four times daily as needed for anxietyhydrOXYzine hydrochloride 25 mg Tab 25 mg = 1 tab(s), Oral, QID, PRN for anxiety, # 40 tab(s), Refills(s) 4, [id number] 172, cm, 11/27/24 10:44:00 EDT, Height/Length Dosing, 90.7, kg, 11/27/24 10:44:00 EDT, Weight Dosing Start Date: 11/27/24 Status: Ordered Quantity: 40.0 Unit: tab(s) Repeat number: 5 Indications: Anxiety disorder, unspecified;Start: 49-70-9894zvqs 1 tablet by mouth four times daily as needed for anxiety hydrOXYzine hydrochloride 25 mg Tab 25 mg = 1 tab(s), Oral, QID, PRN for anxiety, # 40 tab(s), Refills(s) 0, [id number] 180, cm, 05/24/22 15:16:00 EDT, Height/Length Dosing, 90.2, kg, 05/24/22 15:16:00 EDT, Weight Dosing Start Date: 05/24/22 Status: OrderedComment on above:TAKE 1 TABLET BY MOUTH 4 TIMES A DAY NEEDED FOR ANXIETYibuprofen 800 mg oral tablet (20 sources)Nonsteroidal Anti-inflammatory DrugStart: 18-10-9117bxlz 1 tablet by mouth every eight hours as needed for painibuprofen 800 mg Tab 800 mg = 1 tab(s), Oral, q8hr, PRN Pain/Fever, # 30 tab(s), Refills(s) 0, [id number] 172.7, cm, 04/29/25 19:05:00 EDT, Height/Length Dosing, 80.6, kg, 04/29/2519:05:00 EDT, Weight Dosing Start Date: 04/29/25 Status: Ordered Quantity: 30.0 Unit: tab(s) Repeat number: 1Start: 35-02-9216lixx 1 tablet by mouth every eight hours as neededibuprofen (MOTRIN) 800 mg tablet Take 800 mg by mouth every 8 hours as needed. FOR PAIN. 0 01/02/2023 ActiveStart: 03-02-2022 End: 29-67-6758brmj 1 tablet by mouth every twelve hoursibuprofen 800 mg Tab 800 mg = 1 tab(s), Oral, q12hr, X 10 day(s), # 20 tab(s), Refills(s) 1, Pharmacy: [facility]/pharmacy #[id number], 180, cm, 03/02/22 16:05:00 EDT, Height/Length Dosing, 93, kg, 03/02/22 16:05:00 EDT, Weight Dosing Start Date: 03/02/22 Stop Date: 03/22/22 Status: OrderedComment on above:Take 800 mg by mouth every 8 hours as needed. FOR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 ROS info: Except as noted above in the above review of systems and in the history of present illness all other systems have been reviewed and are negative or noncontributory Physical Exam Vitals & Measurements T: 36.6 ???C(Oral) HR: 62(Peripheral) RR: 17 BP: 113/73 SpO2: 99% HT: 172.7 cm WT: 80.3 kg BMI: 26.92 Constitutional: No acute distress, nontoxic, non ill appearing Heart: Regular rate and rhythm without murmurs, gallops or rubs Lungs: clear to auscultation bilaterally without wheezes, rales or rhonchi Skin: There is a small superficial laceration involving the distal tip of the left ring finger lateral to the nail margin. There is a small flap of skin present here. Brisk capillary refill. No digital swelling bony tenderness. Neurological: awake, alert answers questions appropriately Medical Decision Making Patient has a very superficial laceration involving the left ring finger. Does not require repair with sutures. Wound was cleansed and glued. We discussed wound care. Patient agreed with plan, she was discharged home. Assessment/Plan 1. Finger laceration (S61.219A: Laceration without foreign body of unspecified finger without damage to nail, initial encounter) Disposition Plan Discharge Prescription List Prescriptions No active prescription medications Follow-up No qualifying data available Problem List/Past Medical History Ongoing ADHD Asthma Attention deficit hyperactivity disorder (ADHD), combined type, moderate Back pain with history of spinal surgery Battered adult Bilateral hip pain Bronchitis Cervical spine pain Complex posttraumatic stress disorder Depression Encounter for family education about Adverse Childhood Experience questionnaire score Falls Foot laceration Gait abnormality History of adverse childhood experiences Injury of cervical spine Insomnia Insulin resistance Moderate major depression Nerve damage Neuropathy Relationship dysfunction Right groin pain Scoliosis Smoker Strep throat Suspected autism disorder Thoracic spine pain Wart 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 Medications Inpatient No active inpatient medications Home Adderall 10 mg oral tablet, 10 mg= 1 tab(s), Oral, qAM Adderall XR 10 mg Cap-ER, 10 mg= 1 cap(s), Oral, qAM Claritin 10 mg Tab, 10 mg= 1 tab(s), Oral, Daily, 11 refills doxepin 3 mg oral tablet, 3 mg= 1 tab(s), Oral, Once a day (at bedtime), 1 refills escitalopram 10 mg Tab, 10 mg= 1 tab(s), Oral, Daily, 3 refills gabapentin 100 mg Cap, 100 mg= 1 cap(s), Oral, TID, 11 refills gabapentin 300 mg Cap, 300 mg= 1 cap(s), Oral, TID, 11 refills hydrOXYzine hydrochloride 25 mg Tab, 25 mg= 1 tab(s), Oral, QID, PRN, 4 refills ibuprofen 800 mg Tab, 800 mg= 1 tab(s), Oral, q8hr, PRN Junel Fe / oral tablet Lexapro 20 mg Tab, 20 mg= 1 tab(s), Oral, Daily, 3 refills Percocet 7.5 mg-325 mg oral tablet, 1 tab(s), Oral, BID Zofran ODT 4 mg Tab-Dis, 4 mg= 1 tab(s), Oral, q8hr, PRN Allergies Augmentin (Vomiting) Social History Alcohol - Denies Alcohol Use, 03/02/2022 Never., 08/10/2024 Substance Abuse - Denies Substance Abuse, 03/02/2022 Current. Marijuana. 1-2 times per month. Previous treatment: None., 08/10/2024 Tobacco - Denies Tobacco Use, 03/02/2022 Never (less than 100 in lifetime) Tobacco Use:. Never Smokeless Tobacco Use:. Household tobacco concerns: No., 06/26/2025 Family History Family history is negative Lab Results No qualifying data available. Diagnostic Results No qualifying data available.[facility] HospitalComment on above: Result Comment: Electronically Signed By: Tiny Srivastava DO\.br\Date and Time Signed: 07/06/25 21:01 EDTED Patient Summaryon [id number] Patient Summary ED Patient Summary [place] [id number] Patient Discharge Instructions Person Information Name: YANETH DENNIS Age: 24 Years Arrival Date: 07/06/2025 20:04:24 Discharge Diagnosis: 1:Finger laceration Primary Care Physician: MIRI MAX Provider Information Primary Provider: Tiny Srivastava DO Advanced Veneer Stacker:None The exam and treatment you received in the Emergency Department were for an urgent problem and are not intended as complete care. It is important that you follow up with a doctor, nurse practitioner,or physician???s commercial lines account assistant for ongoing care. If your symptoms become worse or you do not improve asexpected and you are unable to reach your usual health care provider, you should return to the Emergency Department. We are available 24 hours a day. YANETH DENNIS has been given the following list of patient education materials, prescriptions and follow-up instructions: Follow-up Instructions: With: Address: When: LEIDA SOLARES In 7 days 07/13/2025 In the event that this physician does not participate in your insurance network, please consult with your insurance company to find a nearby participating provider. Patient Education Materials: Sutures, [place], or Adhesive Wound Closure A MESSAGE TO ALL PATIENTS REGARDING OPIOIDS PRESCRIPTION OPIOIDS: WHAT YOU NEED TO KNOW Prescription opioids can be used to help relieve lbedmbko-xk-lwhyfw pain and are often prescribed following a surgery or injury, or for certain health conditions. These medications can be an important part of the treatment but also come with serious risks. It is important to work with your healthcare provider to make sure you are getting the safest, most effective care. WHAT ARE THE RISKS AND SIDE EFFECTS OF OPIOID USE? Prescription opioids carry serious risks of addiction and overdose, especially with prolonged use. An opioid overdose, often marked by slowed breathing, can cause sudden . The use of prescription opioids can have a number of side effects as well, even when taken as directed: ??? Tolerance???meaning you might need to take more of the medication for the same pain relief ??? Physical dependence???meaning you have symptoms of withdrawal when a medication is stopped ??? Increased sensitivity to pain ??? Constipation ??? Nausea, vomiting, and dry mouth ??? Sleepiness and dizziness ??? Confusion ??? Depression ??? Low levels of testosterone that can result in lower sex drive, energy, and strength ??? Itching and sweating RISKS ARE GREATER WITH: ??? History of drug misuse, substance use disorder, or overdose ??? Mental health conditions (such as depression or anxiety) ??? Sleep apnea ??? Older age (65 years and older) ??? Avoid alcohol while taking prescription opioids. Also, unless specifically advised by your health care provider, medications to avoid include: ??? Benzodiazepines (such as Xanax or Valium) ??? Muscle relaxants (such as Soma or Flexeril) ??? Hypnotics (such as Ambien or Lunesta) ??? Other prescription opioids KNOW YOUR OPTIONS Talk to your health care provider about ways to manage your pain that don???t involve prescription opioids. Some of these options may actually work better and have fewer risks and side effects. Options may include: ??? Pain relievers such as acetaminophen, ibuprofen, and naproxen ??? Some medication that are also used for depression or seizures ??? Physical therapy and exercise ??? Cognitive behavioral therapy, a psychological, goal-directed approach, in which patients learn how to modify physical, behavioral, and emotional triggers of pain and stress. IF YOU ARE PRESCRIBED OPIOIDS FOR PAIN: ??? Never take opioids in greater amounts or more often than prescribed. ??? Follow up with your primary health care provider. o Work together to create a plan on how to manage your pain. o Talk about ways to help manage your pain that don???t involve prescription opioids. o Talk about any and all concerns and side effects. ??? Help prevent misuse and abuse o Never sell or share prescription opioids. o Never use another person???s prescription opioids. ??? Store prescription opioids in a secure place and out of reach of others (this may include visitors, children, friends, and family). ??? Safely dispose of unused prescription opioids: Find your community drug take-back program or your pharmacy mail-back program, or flush them down the toilet, following guidance from the Food and Drug Administration (www.fda.gov/Drugs/ResourcesForYou). ??? Visit www.cdc.gov/drugoverdose to learn about the risks of opioids abuse and overdose. ??? If you believe you may be struggling with addiction, tell your health childcare director and askfor guidance or call [facility] (more content not included)...[facility] HospitalAmbulatory Visit Summaryon [id number] Visit SummaryAmbulatory Visit Summary YANETH DENNIS Leatha :2000 Visit Date:06/26/2025 Ambulatory Visit Instructions Your Diagnosis Scoliosis ADHD BMI 26.0-26.9,adult Never used tobacco Thoracic spine pain Injury of cervical spine Your Care Team Attending Physician - MIRI MAX Primary Care Physician - MIRI MAX This Is Your Medications List acetaminophen-oxycodone (Percocet 7.5 mg-325 mg oral tablet) amphetamine-dextroamphetamine (Adderall 10 mg oral tablet) amphetamine-dextroamphetamine (Adderall XR 10 mg Cap-ER) doxepin (doxepin 3 mg oral tablet) escitalopram (Lexapro 20 mg Tab) escitalopram (escitalopram 10 mg Tab) ethinyl estradiol-norethindrone (Junel Fe 10/07 oral tablet) gabapentin (gabapentin 100 mg Cap) gabapentin (gabapentin 300 mg Cap) hydrOXYzine (hydrOXYzine hydrochloride 25 mg Tab) ibuprofen (ibuprofen 800 mg Tab) loratadine (Claritin 10 mg Tab) ondansetron (Zofran ODT 4 mg Tab-Dis) Procedures Performed Tonsillectomy, tubes in ears. Discharge Vitals Heart Rate (Peripheral) 59 Respiratory Rate 18 Blood Pressure 118/70 Height 172.7 cm Height 68 in Weight 80.3 kg Weight 177.031 lb BMI 26.92 What to do next You Need to Complete the Following CT Spine Cervical w/o Contrast, 06/26/25, Routine, Order for future visit, Transport Mode: Ambulatory, Reason: Spinal stenosis, No, No, Scoliosis, pp_set_radiology_subspecialty, [facility] CT Spine Thoracic w/o Contrast, 06/26/25, Routine, Order for future visit, Transport Mode: Ambulatory, Reason: Spinal stenosis, No, No, Scoliosis, pp_set_radiology_subspecialty, [facility] Medications What How Much When Why Instructions Unchanged acetaminophen-oxycodone (Percocet 7.5 mg-325 mg oral tablet) 1 Tablets By Mouth 2 times aday Scoliosis Thoracic spine pain Unchanged amphetamine-dextroamphetamine (Adderall 10 mg oral tablet) 1 Tablets By Mouth Once a day (in the morning) ADHD 30 days Unchanged amphetamine-dextroamphetamine (Adderall XR 10 mg Cap-ER) 1 Capsules By Mouth Once a day (in the morning) ADHD dx F98.8 30 day supply Unchanged doxepin (doxepin 3 mg oral tablet) 1 Tablets By Mouth Once a day (at bedtime) Insomnia Unchanged escitalopram (escitalopram 10 mg Tab) 1 Tablets By Mouth Every day Take with 20mg tab fortotal daily dose of 30mg Unchanged escitalopram (Lexapro 20 mg Tab) 1 Tablets By Mouth Every day Depression Take with 10mg tab for total daily dose of 30mg Unchanged ethinyl estradiol-norethindrone (Junel Fe oral tablet) TAKE 1 TABLET BY MOUTH EVERYDAY Unchanged gabapentin (gabapentin 100 mg Cap) 1 Capsules By Mouth 3 times a day Injury of cervical spine Muscle spasm Neuropathy Scoliosis take 100mg capsule with 300mg capsule to = 400mg po TID Unchanged gabapentin (gabapentin 300 mg Cap) 1 Capsules By Mouth 3 times a day Neuropathy Unchanged hydrOXYzine (hydrOXYzine hydrochloride 25 mg Tab) 1 Tablets By Mouth 4 times a day as needed for for anxiety Anxiety Unchanged ibuprofen (ibuprofen 800 mg Tab) 1 Tablets By Mouth Every 8 hours as needed for Pain/Fever Unchanged loratadine (Claritin 10 mg Tab) 1 Tablets By Mouth Every day Allergies Unchanged ondansetron (Zofran ODT 4 mg Tab-Dis) 1 Tablets By Mouth Every 8 hours as needed for Nausea/Vomiting Allergies Augmentin (Vomiting) Problems Ongoing - Any problem that you are currently receiving treatment for. ADHD Asthma Attention deficit hyperactivity disorder (ADHD), combined type, moderate Back pain with history of spinal surgery Battered adult Bilateral hip pain Bronchitis Cervical spine pain Complex posttraumatic stress disorder Depression Encounter for family education about Adverse Childhood Experience questionnaire score Falls Foot laceration Gait abnormality History of adverse childhood experiences Injury of cervical spine Insomnia Insulin resistance Moderate major depression Nerve damage Neuropathy Relationship dysfunction Right groin pain Scoliosis Smoker Strep throat Suspected autism disorder Thoracic spine pain Wart Historical - Any problem that you are no longer receiving treatment for. Anxiety disorder due to medical condition Ear infections Inattention Scoliosis Patient Survey You may receive a survey via text or e-mail asking about your office visit. Please share your experience with us by completing your survey. We appreciate your feedback and thank you for choosing us for your care. Patient Portal You may access all of your results and other medical record information on our secure patient portal. If you are not signed up for this yet, please contact [employer] at [phone] to get signed up today. Language Information Language assistance services are available as needed. [facility] Medicine Office/Clinic Noteon [id number] Medicine Office/Clinic NoteFasaint [facility] Office/Clinic Note Chief Complaint F/U on back pain HPI Staff Here For: F/U on Back Pain Concerns: Patient states she fell twice because of it, not patient believes she has a sprained ankle (patient clearly stated that she fell because her legs went out on her even though she states the fall is r/t her back pain.) History of Present Illness Yaneth is a 24 year old female who presents for 2 falls yesterday. She has no feeling in her legs, but in her feet she has feeling (she is s/p 2 falls this week). She would like me to order the CT's of her spine that her surgeon wanted done so she can have them at [facility]. Otherwise she has no additional concerns or needs today. She is on adderall and doing well and does not need a refill. This will serve as a fu for her adderall. Staff HPI reviewed and accurate. Review of Systems PHQ Score Initial Depression Screen Score: 3 SCORE Detailed Depression Screen Score: 16 Total Depression Screen Score: 19 Physical Exam Vitals & Measurements HR: 59(Peripheral) RR: 18 BP: 118/70 SpO2: 99% HT: 172.7 cm HT: 68 in WT: 177.031 lb WT: 80.3 kg BMI: 26.92 General: alert, no acute distress ENMT: TM's clear, oral mucosa moist, no pharyngeal erythema or exudate Cardiovascular: regular rate and rhythm, normal peripheral perfusion Respiratory: Lungs CTA, respirations non labored Extremities: no deformity, no trauma Neurological: oriented x 4, LOC appropriate for age, CN II-XII intact, motor strength equal & normal bilaterally, sensation equal & normal bilaterally, speech normal Assessment/Plan 1. Scoliosis (M41.9: Scoliosis, unspecified) CT cervical and thoracic spine fu with neurosurgeon after imaging Ordered: CT Spine Cervical w/o Contrast CT Spine Thoracic w/o Contrast 2. ADHD (F90.9: Attention-deficit hyperactivity disorder, unspecified type) stable on current regimen OARRS reviewed 3. BMI 26.0-26.9,adult (Z68.26: Body mass index [BMI] 26.0-26.9, adult) stable 4. Never used tobacco (Z78.9: Other specified health status) stable 5. Thoracic spine pain (M54.6: Pain in thoracic spine) see 1 6. Injury of cervical spine (S14.109A: Unspecified injury at unspecified level of cervical spinal cord, initial encounter) see 1 Orders: tizanidine, 4 mg = 1 tab(s), Oral, qPM, # 90 tab(s), Refills(s) 2, Pharmacy: [id number], 168, cm, 03/06/25 11:42:00 EDT, Height/Length Dosing, 83.1, kg, 03/06/25 11:42:00 EDT, Weight Dosing Follow-up No qualifying data available Problem List/Past Medical History Ongoing ADHD Asthma Attention deficit hyperactivity disorder (ADHD), combined type, moderate Back pain with history of spinal surgery Battered adult Bilateral hip pain Bronchitis Cervical spine pain Complex posttraumatic stress disorder Depression Encounter for family education about Adverse Childhood Experience questionnaire score Falls Foot laceration Gait abnormality History of adverse childhood experiences Injury of cervical spine Insomnia Insulin resistance Moderate major depression Nerve damage Neuropathy Relationship dysfunction Right groin pain Scoliosis Smoker Strep throat Suspected autism disorder Thoracic spine pain Wart 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 Medications Adderall 10 mg oral tablet, 10 mg= 1 tab(s), Oral, qAM Adderall XR 10 mg Cap-ER, 10 mg= 1 cap(s), Oral, qAM Claritin 10 mg Tab, 10 mg= 1 tab(s), Oral, Daily, 11 refills doxepin 3 mg oral tablet, 3 mg= 1 tab(s), Oral, Once a day (at bedtime), 1 refills escitalopram 10 mg Tab, 10 mg= 1 tab(s), Oral, Daily, 3 refills gabapentin 100 mg Cap, 100 mg= 1 cap(s), Oral, TID, 11 refills gabapentin 300 mg Cap, 300 mg= 1 cap(s), Oral, TID, 11 refills hydrOXYzine hydrochloride 25 mg Tab, 25 mg= 1 tab(s), Oral, QID, PRN, 4 refills ibuprofen 800 mg Tab, 800 mg= 1 tab(s), Oral, q8hr, PRN Junel Fe / oral tablet Lexapro 20 mg Tab, 20 mg= 1 tab(s), Oral, Daily, 3 refills Percocet 7.5 mg-325 mg oral tablet, 1 tab(s), Oral, BID Zofran ODT 4 mg Tab-Dis, 4 mg= 1 tab(s), Oral, q8hr, PRN Allergies Augmentin (Vomiting) Social History Alcohol - Denies Alcohol Use, 03/02/2022 Never., 08/10/2024 Substance Abuse - Denies Substance Abuse, 03/02/2022 Current. Marijuana. 1-2 times per month. Previous treatment: None., 08/10/2024 Tobacco - Denies Tobacco Use, 03/02/2022 Never (less than 100 in lifetime) Tobacco Use:. Never Smokeless Tobacco Use:. Household tobacco concerns: No., 06/26/2025 Family History Family history is negative Immunizations Vaccine Date Status Comments influenza virus vaccine, inactivated - Not Given Postpone due to refusal diphtheria/pertussis, acel/tetanus adult 01/26/2024 Given influenza virus vaccine, inactivated - Not Given Patient Refuses influenz (more content not included)...[facility] HospitalComment on above:Result Comment: Electronically Signed By: MIRI MAX\.br\Date and Time Signed: 06/26/25 12:34 EDTUS PELVIC COMPLETE W/ TVon [id number] PELVIC COMPLETE W/ TVFINDINGS: Uterus 9.4 x 3.5 x 4.5 cm Endometrium 3 mm Right ovary 2.2 x 1.8 x 2.2 cm Left ovary 2.2 x 1.5 x 2.6 cm The uterus is normal in size and orientation. No worrisome mass lesions are seen. Endometrium appears unremarkable. No fluid is seen within the cul-de-sac. Both ovaries appear normal for this age. IMPRESSION: Normal pelvic ultrasound appearance TRANSCRIBED BY: ELECTRONICALLY SIGNED BY: Jonah Meza AvailableComment on above:Order Comment: US PELVIS-TRANSVAG IF INDICATED No LMP recorded.Ambulatory Visit Summaryon [id number] Visit Summary Ambulatory Visit Summary CHAVEZ DENNISSTIVENPREET Leatha :2000 Visit Date:05/28/2025 Ambulatory Visit Instructions Your Diagnosis Foot laceration Bronchitis, Bronchitis BMI 27.0-27.9,adult Never used tobacco Insomnia, Insomnia Your Care Team Attending Physician - MIRI MAX Primary Care Physician - MIRI MAX This Is Your Medications List acetaminophen-oxycodone (Percocet 7.5 mg-325 mg oral tablet) amphetamine-dextroamphetamine (Adderall 10 mg oral tablet) amphetamine-dextroamphetamine (Adderall XR 10 mg Cap-ER) azithromycin (Zithromax 250 mg Tab) bacitracin topical (bacitracin Top 500 units/g Oint 30 gram) cephalexin (Keflex 500 mg Cap) doxepin (doxepin 3 mg oral tablet) escitalopram (Lexapro 20 mg Tab) escitalopram (escitalopram 10 mg Tab) ethinyl estradiol-norethindrone (Junel Fe 10/07 oral tablet) gabapentin (gabapentin 100 mg Cap) gabapentin (gabapentin 300 mg Cap) hydrOXYzine (hydrOXYzine hydrochloride 25 mg Tab) ibuprofen (ibuprofen 800 mg Tab) loratadine (Claritin 10 mg Tab) methylPREDNISolone (Medrol 4 mg Tab) ondansetron (Zofran ODT 4 mg Tab-Dis) tizanidine (tiZANidine 4 mg Tab) Procedures Performed Tonsillectomy, tubes in ears. Discharge Vitals Heart Rate (Peripheral) 62 Respiratory Rate 16 Blood Pressure 110/70 Height 172.7 cm Height 68 in Weight 82.3 kg Weight 181.44 lb BMI 27.59 Medications What How Much When Why Instructions New azithromycin (Zithromax 250 mg Tab) 1 Packets By Mouth As Directed Bronchitis Duration: 5 Days as directed on package labeling Pickup at [facility]/pharmacy #[id number] New doxepin (doxepin 3 mg oral tablet) 1 Tablets By Mouth Once a day (at bedtime) Insomnia Refills:1 Pickup at [facility]/pharmacy #[id number] New methylPREDNISolone (Medrol 4 mg Tab) 1 Packets By Mouth As Directed Bronchitis Duration: 6 Daysas directed on package labeling Pickup at [facility]/pharmacy #[id number] Unchanged acetaminophen-oxycodone (Percocet 7.5 mg-325 mg oral tablet) 1 Tablets By Mouth 2 times aday Scoliosis Thoracic spine pain Unchanged amphetamine-dextroamphetamine (Adderall 10 mg oral tablet) 1 Tablets By Mouth Once a day (in the morning) ADHD 30 days Unchanged amphetamine-dextroamphetamine (Adderall XR 10 mg Cap-ER) 1 Capsules By Mouth Once a day (in the morning) ADHD dx F98.8 30 day supply Unchanged bacitracin topical (bacitracin Top 500 units/ g Oint 30 gram) 1 Application Topical 4 times a day Duration: 5 Days Unchanged cephalexin (Keflex 500 mg Cap) 1 Capsules By Mouth Every 8 hours Duration: 5 Days Unchanged escitalopram (escitalopram 10 mg Tab) 1 Tablets By Mouth Every day Take with 20mg tab fortotal daily dose of 30mg Unchanged escitalopram (Lexapro 20 mg Tab) 1 Tablets By Mouth Every day Depression Take with 10mg tab for total daily dose of 30mg Unchanged ethinyl estradiol-norethindrone ( Fe oral tablet) TAKE 1 TABLET BY MOUTH EVERYDAY Unchanged gabapentin (gabapentin 100 mg Cap) 1 Capsules By Mouth 3 times a day Injury of cervical spine Muscle spasm Neuropathy Scoliosis take 100mg capsule with 300mg capsule to = 400mg po TID Unchanged gabapentin (gabapentin 300 mg Cap) 1 Capsules By Mouth 3 times a day Neuropathy Unchanged hydrOXYzine (hydrOXYzine hydrochloride 25 mg Tab) 1 Tablets By Mouth 4 times a day as needed for for anxiety Anxiety Unchanged ibuprofen (ibuprofen 800 mg Tab) 1 Tablets By Mouth Every 8 hours as needed for Pain/Fever Unchanged loratadine (Claritin 10 mg Tab) 1 Tablets By Mouth Every day Allergies Unchanged ondansetron (Zofran ODT 4 mg Tab-Dis) 1 Tablets By Mouth Every 8 hours as needed for Nausea/Vomiting Unchanged tizanidine (tiZANidine 4 mg Tab) 1 Tablets By Mouth Once a day (in the evening) Muscle spasm Pharmacy Information [facility]/pharmacy #[id number]: [address] [place], [place] [phone] Allergies Augmentin (Vomiting) Problems Ongoing - Any problem that you are currently receiving treatment for. ADHD Asthma Attention deficit hyperactivity disorder (ADHD), combined type, moderate Back pain with history of spinal surgery Battered adult Bilateral hip pain Bronchitis Cervical spine pain Complex posttraumatic stress disorder Depression Encounter for family education about Adverse Childhood Experience questionnaire score Falls Foot laceration Gait abnormality History of adverse childhood experiences Injury of cervical spine Insomnia Insulin resistance Moderate major depression Nerve damage Neuropathy Relationship dysfunction Right groin pain Scoliosis Smoker Strep throat Suspected autism disorder Thoracic spine pain Wart Historical - Any problem that you are no longer receiving treatment for. Anxiety disorder due to medical condition Ear infections Inattention Scoliosis Patient Survey You may receive a survey via text or e-mail asking about your office visit. Juany (more content notincluded)...[facility] Medicine Office/Clinic Noteon [id number] [facility]/Clinic Note Chief Complaint ER F/U HPI Staff TCM: Hospital: [facility] Admission date: 05/25/25 Discharge date: 05/25/25 Symptoms the patient presented with: Left foot pain after cutting it on metal strip Current concerns: No concerns only came per [facility] telling patient she HAD to F/U History of Present Illness Yaneth is a 24 year old female who presents with an acute URI and s/p ED visit for a cut on her foot and 3 stitches. The foot looks clean and dry and the stitches are intact. She also has a cough and congestion - her kids are sick as well. Staff HPI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 mmol/RXqghms293-919CckjmaThe Surgical Hospital At SouthwoodsComment on above:Performed By: #### [id number] #### [facility] [address], [place] [address]Bevy nitrogen [Mass/Vol]13 mg/dLNormal5-21The [facility] Hospital At SouthwoodsComment on above:Performed By: #### [id number] #### [facility] [address] [place] [address]AQN w/ Auto Diffon [id number] Absolute0.0 E9/LNormal 0.0-0.2FSelect Medical Specialty Hospital - YoungstownComment on above:Performed By: #### [id number] #### [facility] [address] [place] [address]Nyiajjuho/100 WBC (Bld)0.4 %Normal0.0-2.0The [facility] Hospital At SouthwoodsComment on above:Performed By: #### [id number] #### [facility] [address] [place] [address] 567[address]Clk Absolute0.0 E9/LNormal0.0-0.5FSelect Medical Specialty Hospital - [place] Comment on above:Performed By: #### [id number] #### [facility] [address] [place] [address] 09[address]Hughuyloahn/100 WBC (Bld)0.3 %Normal0.0-8.0The [facility] Hospital At SouthwoodsComment on above:Performed By: #### [id number] #### [facility] [address] [place] [address]Iwgmelzusys distribution width (RBC) [Ratio]13.3 %Normal 10.9-14.2FSelect Medical Specialty Hospital - YoungstownComment on above:Performed By: #### [id number] #### [facility] [address] [place] [address]Tzjwswmrer (Bld) [Volume fraction]39.6 %Mhiwmo96.0-46.0The [facility] Hospital At SouthwoodsComment on above:Performed By: #### [id number] #### [facility] [address] [place] [address]Vsbsnemxdn (Bld) [Mass/Vol]13.4 g/bLZtlpic61.0-16.0The [facility] Hospital At SouthwoodsComment on above:Performed By: #### [id number] #### [facility] [address] [place] [address]Gbpku Absolute2.0 E9/LNormal1.0-4.0[facility] Comment on above:Performed By: #### [id number] #### [facility] [address] [place] [address] 56[address]Zvczzdjcwcs/100 WBC (Bld)22.0 %Ghauvp44.0-50.0The [facility] Hospital At SouthwoodsComment on above:Performed By: #### [id number] #### [facility] [address] [place] [address]95[address]RIO (RBC) [Entitic mass]30.8 jsQghnlp87.0-34.0The [facility] Hospital At SouthwoodsComment on above:Performed By: #### [id number] #### [facility] [address] [place] [address] 377[address]OBTY (RBC) [Mass/Vol]33.9 g/zDWqxcvv17.4-36.0The [facility] Hospital At SouthwoodsComment on above:Performed By: #### [id number] #### [facility] [address] [place] [address] 18626TIQ (RBC) [Entitic vol]90.8 kDWegzsb48.0-100.0The [facility] Hospital At SouthwoodsComment on above:Performed By: #### [id number] #### [facility] [address] [place] [address]70[address]Awtr Absolute0.5 E9/LNormal0.2-1.0[facility] Comment on above:Performed By: #### [id number] #### [facility] [address] [place] [address]Qtsvhpjzr/100 WBC (Bld)5.4 %Normal4.0-14.0The [facility] Hospital At SouthwoodsComment on above:Performed By: #### [id number] #### [facility] [address] [place] [address] 57[address]Slvfii Absolute6.4 E9/LNormal2.0-7.5FSelect Medical Specialty Hospital - [place] Comment on above:Performed By: #### [id number] #### [facility] [address] [place] [address] 407[address]Tnbvjf Auto71.9 %Hviomh25.0-75.0[facility] Comment on above:Performed By: #### [id number] #### [facility] [address] [place] [address]08[address]Svffjwcn912.0 E9/AUwmlgy471.0-500.0[facility] Comment on above:Performed By: #### [id number] #### [facility] [address] [place] [address]Eizbpife mean volume (Bld) [Entitic vol]8.7 fLNormal6.4-10.8 The [facility] Hospital At SouthwoodsComment on above:Performed By: #### [id number] #### [facility] [address] [place] [address] 26093KLO3.4 E12/LNormal4.3-5.9The [facility] Hospital At SouthwoodsComment on above:Performed By: #### [id number] #### [facility] [address] [place] [address] 594[address]ZWC2.9 E9/LNormal4.0-11.0The [facility] Hospital At SouthwoodsComment on above:Performed By: #### [id number] #### [facility] [address] [place] [address] 867[address]BB Clinical Summaryon [id number] Clinical SummaryED Clinical Summary [address] [address] ED Clinical Summary Person Information Name: YANETH DENNIS [place] Age: 24 Years : 2000 Sex: Female Language: Senegalese PCP: MIRI MAX Marital Status: Single Visit Id: Visit Reason: Nausea; Vomiting; Abdominal pain; ABD PAIN, N/V Speciality: Acuity: 3 Enc Type: Emergency Med Service: Emergency Arrival: 04/29/2025 18:57:15 Discharge: 04/29/2025 22:49:29 LOS: 000 03:52 Checkin: 04/29/2025 18:57:15 Checkout: 04/29/2025 22:49:29 Dispo Type: Home (Routine DC) EVENTS: Event Name Event Status Request Date/Time Start Date/Time Complete Date/Time Arrive Complete 04/29/2025 18:57:15 04/29/2025 18:57:15 04/29/2025 18:57:15 Document Home Meds Request 04/29/2025 18:57:15 Triage Complete 04/29/2025 18:57:15 04/29/2025 19:05:02 04/29/2025 19:05:02 Bed Assign Complete 04/29/2025 19:05:28 04/29/2025 19:05:28 04/29/2025 19:05:28 Dr Exam Complete 04/29/2025 19:05:28 04/29/2025 19:16:20 04/29/2025 19:16:20 RN Exam Complete 04/29/2025 19:05:28 04/29/2025 20:01:36 04/29/2025 20:01:36 Registration Complete 04/29/2025 19:16:20 04/29/2025 19:48:18 04/29/2025 19:48:18 CT Complete 04/29/2025 19:36:04 04/29/2025 20:46:10 04/29/2025 21:00:23 Meds Admin Complete 04/29/2025 19:36:04 04/29/2025 19:49:08 Pending Labs Complete 04/29/2025 19:36:04 04/29/2025 21:04:23 Lab Complete 04/29/2025 19:36:04 04/29/2025 20:11:22 Patient Care Request 04/29/2025 19:36:04 Pending Labs Complete 04/29/2025 19:47:05 04/29/2025 19:47:05 04/29/2025 20:11:22 Lab Complete 04/29/2025 19:47:05 04/29/2025 19:47:05 04/29/2025 20:11:22 Reg Complete Request 04/29/2025 19:48:18 Reg Bed Request Complete 04/29/2025 19:48:18 04/29/2025 19:48:18 04/29/2025 19:48:18 Pending Labs Complete 04/29/2025 20:23:11 04/29/2025 20:23:11 04/29/2025 20:23:12 Pending Labs Inlab 04/29/2025 21:04:24 04/29/2025 21:04:24 Lab Inlab 04/29/2025 21:04:24 04/29/2025 21:04:24 Discharge Complete 04/29/2025 22:33:03 04/29/2025 22:49:32 04/29/2025 22:49:32 Transfer Complete 04/29/2025 22:49:32 04/29/2025 22:49:32 04/29/2025 22:49:32 ADDRESS: [address] [place] [phone] PHYS DOC NOTES: MEDICAL INFORMATION: Prescriptions Given: New Medications [facility]/pharmacy #[id number], [address], [place] [id number], [phone] ibuprofen (ibuprofen 800 mg Tab) 1 Tablets By Mouth every 8 hours as needed Pain/Fever. Refills: 0. nitrofurantoin (nitrofurantoin macrocrystals-monohydrate 100 mg Cap) 1 Capsules By Mouth 2 times a day for 3 Days. Refills: 0. ondansetron (Zofran ODT 4 mg Tab-Dis) 1 Tablets By Mouth every 8 hours. Refills: 0. Medications to Continue with No Changes Other Medications acetaminophen-oxycodone (Percocet 7.5 mg-325 mg oral tablet) 1 Tablets By Mouth 2 times a day. Refills: 0. amphetamine-dextroamphetamine (Adderall 10 mg oral tablet) 1 Tablets By Mouth once a day (in the morning). Refills: 0. amphetamine-dextroamphetamine (Adderall XR 10 mg Cap-ER) 1 Capsules By Mouth once a day (in the morning). dx F98.8. Refills: 0. escitalopram (escitalopram 10 mg Tab) 1 Tablets By Mouth every day. Take with 20mg tab for total daily dose of 30mg. Refills: 3. escitalopram (Lexapro 20 mg Tab) 1 Tablets By Mouth every day. Take with 10mg tab for total daily dose of 30mg. Refills: 3. ethinyl estradiol-norethindrone (Junel Fe 10/07 oral tablet) TAKE 1 TABLET BY MOUTH EVERY DAY. gabapentin (gabapentin 100 mg Cap) 1 Capsules By Mouth 3 times a day. take 100mg capsule with 300mgcapsule to = 400mg po TID. Refills: 11. gabapentin (gabapentin 300 mg Cap) 1 Capsules By Mouth 3 times a day. Refills: 11. hydrOXYzine (hydrOXYzine hydrochloride 25 mg Tab) 1 Tablets By Mouth 4 times a day as needed for anxiety. Refills: 4. tizanidine (tiZANidine 4 mg Tab) 1 Tablets By Mouth once a day (in the evening). Refills: 2. PATIENT EDUCATION INFORMATION: Instructions: How to Use Compression Stockings; Pelvic Pain, Female Follow up: With: Address: When: Mirian Bettencourt [address] [place], [place] [id number] [facility] (1) In 3 days 05/02/2025 Comments: Call the office of your primary care doctor to arrange for follow-up within the above-stated timeframe. Follow-up with your primary care doctor about this ED visit. You should review your labs, imaging, and diagnoses from this ED visit with your primary care physician. There are occasionally non-emergent findings that require additional follow-up after your ED visit. If you were prescribed medications you should discuss possible side-effects and drug interactions with your pharmacist. Call 911 or go to the nearest Emergency Department if you develop any new or worsening symptoms. Obtain compression stockings and wear daily. Use ibuprofen for pain. Zofran for nausea and vomiting. Follow-up with Dr. Bettencourt to discuss treatment options for pelvic congestion syndr (more content notincluded)...NormalFisher Neal Medical CenterED Note-Physicianon [id number] Note-PhysicianED Note-Physician Basic Information Time Seen: Candelario Wilhelm DO 04/29/2025 19:16 Chief Complaint Pt. presents to the ed with c/o lower abdominal pain, nausea and vomiting that started about 2 months, being tested for endometriosis and cysts by OB but continueing to get worse. History of Present Illness 24-year-old female to the emergency department chief complaint of lower abdominal pain, nausea vomiting that began 2 months ago. Patient reports she has had 2 months of daily lower abdominal pain. Itis sharp and cramping in nature. It is present every day. It does come and go throughout the day however. No association with eating. No provoking or palliating features. No fever, sweats, chills. Has been associate with nausea and vomiting the last few days. She denies any change in bowel movements. No flank pain. No dysuria urgency frequency or hematuria. She reports she has had irregular periods with breakthrough bleeding. She is on control. She has seen her SUPERVISORY EXAMINER for this and was told it may be endometriosis. Review of Systems A 10 point review of systems is negative except as noted above. Medical and Surgical History: Reviewed and noted Social history: Lives at home Tobacco: Denies Physical Exam Vitals & Measurements T: 37.0 ???C(Oral) HR: 47(Peripheral) RR: 18 BP: 125/78 SpO2: 100% HT: 172.72 cm WT: 80.6 kg BMI: 27.02 VITALS: I have reviewed the triage vital signs. GENERAL: Well developed, well appearing adult in no acute distress. NEURO: Alert and oriented. Moves all extremities. Face is symmetric and expressive. EYES: PERRL. No scleral icterus or conjunctival injection. No discharge. HENT: Normocephalic, atraumatic. Hearing is grossly intact. Nares grossly patent and without discharge. Mucous membranes moist. NECK: No JVD. Patient moves neck without restriction. CARDIO: Rhythm regular. Normal rate. No murmur, rub, or gallop. Pulses equal bilaterally in the upper and lower extremity. No lower extremity edema. PULM: Lungs clear to auscultation in all burkett. No wheezes, rales, or rhonchi. No conversational dyspnea. No splinting, stridor, or accessory muscle use. GI/: Abdomen is soft. Mild lower abdominal tenderness. Normoactive bowel sounds. EXTREMITIES: Symmetric muscle bulk. No joint swelling. No clubbing, cyanosis, or deformity. SKIN: Warm and dry. Normal turgor. No rash or lesions appreciated. PSYCH: Mood, affect, and interaction is appropriate to the setting. Medical Decision Making 24-year-old female to the emergency department chief complaint of chronic abd pain and N/V. Vital stable, the patient is afebrile. CT scan, basic labs are ordered. Urinalysis. Patient agrees with this plan. Lab work is unremarkable. test is negative. UA is concerning for UTI. CT scan is suggestive of pelvic congestion syndrome. Findings were discussed with the patient. She is given a referral to vascular surgery. UTI will be treated with Macrobid. Ibuprofen prescribed. Recommended obtaining compression stockings from pharmacy. Return precautions were discussed. All questions were answered. The patient was discharged home. Assessment/Plan Acute lower UTI (N39.0: Urinary tract infection, site not specified) Pelvic congestion syndrome (N94.89: Other specified conditions associated with female genital organs and menstrual cycle) Orders: dicyclomine, 20 mg = 2 mL, Injection, IntraMuscular, Once, Stop date 04/29/25 19:35:00 EDT, STAT, Start date 04/29/25 19:35:00 EDT, 04/29/25 19:35:00 EDT ibuprofen, 800 mg = 1 tab(s), Oral, q8hr, PRN Pain/Fever, # 30 tab(s), Refills(s) 0, Pharmacy: [facility]/pharmacy #[id number], 172.7, cm, 04/29/25 19:05:00 EDT, Height/Length Dosing, 80.6, kg, 04/29/25 19:05:00 EDT, Weight Dosing ketorolac, 30 mg = 1 mL, Injection, IV Push, Once, Stop date 04/29/25 19:35:00 EDT, STAT, Start date 04/29/25 19:35:00 EDT, 04/29/25 19:35:00 EDT nitrofurantoin, 100 mg = 1 cap(s), Oral, BID, X 3 day(s), # 6 cap(s), Refills(s) 0, Pharmacy: [facility]/pharmacy #[id number], 172.7, cm, 04/29/25 19:05:00 EDT, Height/Length Dosing, 80.6, kg, 04/29/25 19:05:00 EDT, Weight Dosing ondansetron, 4 mg = 1 tab(s), Oral, q8hr, # 12 tab(s), Refills(s) 0, Pharmacy: [facility]/pharmacy #[id number], 172.7, cm, 04/29/25 19:05:00 EDT, Height/Length Dosing, 80.6, kg, 04/29/25 19:05:00 EDT, Weight Dosing ondansetron, 4 mg = 2 mL, Injection, IV Push, Once, Stop date 04/29/25 19:35:00 EDT, STAT, Start date 04/29/25 19:35:00 EDT, 04/29/25 19:35:00 EDT Sodium Chloride 0.9% intravenous solution, 1,000 mL, Soln-IV, IV, Once, Stop date 04/29/25 19:35:00EDT, STAT, Start date 04/29/25 19:35:00 EDT, Infuse over 61, minute(s) Basic Metabolic Panel Beta hCG Qual CBC w/ Auto Diff CT Abdomen/Pelvis w/ Contrast eGFR Extra Blue Tube Hepatic Function Panel Saline Lock Insert UA with Cult Rflx Urine Culture Disposition Plan Patient Discharge Condition Stable Discharge Disposition Home Discharge Prescription List Prescriptions ibuprofen 800 mg Tab, 8 (more content not included)...[facility] HospitalComment on above:Result Comment: Electronically Signed By: Candelario Wilhelm DO\.br\Date and Time Signed: 04/29/25 22:42 EDTED Patient Summaryon [id number] Patient SummaryED Patient Summary [place] [id number] Patient Discharge Instructions Person Information Name: YANETH DENNIS Age: 24 Years Arrival Date: 04/29/2025 18:57:15 Discharge Diagnosis: Acute lower UTI; Pelvic congestion syndrome Primary Care Physician: MIRI MAX Provider Information Primary Provider: Candelario Wilhelm DO Advanced Veneer Stacker:None The exam and treatment you received in the Emergency Department were for an urgent problem and are not intended as complete care. It is important that you follow up with a doctor, nurse practitioner,or physician???s commercial lines account assistant for ongoing care. If your symptoms become worse or you do not improve asexpected and you are unable to reach your usual health care provider, you should return to the Emergency Department. We are available 24 hours a day. YANETH DENNIS has been given the following list of patient education materials, prescriptions and follow-up instructions: Follow-up Instructions: With: Address: When: Mirian Bettencourt [address], [place] [phone] [facility] (1) In 3 days 05/02/2025 Comments: Call the office of your primary care doctor to arrange for follow-up within the above-stated timeframe. Follow-up with your primary care doctor about this ED visit. You should review your labs, imaging, and diagnoses from this ED visit with your primary care physician. There are occasionally non-emergent findings that require additional follow-up after your ED visit. If you were prescribed medications you should discuss possible side-effects and drug interactions with your pharmacist. Call 911 or go to the nearest Emergency Department if you develop any new or worsening symptoms. Obtain compression stockings and wear daily. Use ibuprofen for pain. Zofran for nausea and vomiting. Follow-up with Dr. Bettencourt to discuss treatment options for pelvic congestion syndrome. With: Address: When: LEIDA SOLARES In 3 days 05/02/2025 Comments: Call the office of your primary care doctor to arrange for follow-up within the above-stated timeframe. Follow-up with your primary care doctor about this ED visit. You should review your labs, imaging, and diagnoses from this ED visit with your primary care physician. There are occasionally non-emergent findings that require additional follow-up after your ED visit. If you were prescribed medications you should discuss possible side-effects and drug interactions with your pharmacist. Call 911 or go to the nearest Emergency Department if you develop any new or worsening symptoms. Seek immediate medical attention if you develop: worsening abdominal pain, new or worsening nausea, new or worsening vomiting, new or worsening diarrhea, chest pain, shortness of breath, pain with urination, problems urinating, fever, chills, weakness, or any new or worsening symptoms. In the event that this physician does not participate in your insurance network, please consult with your insurance company to find a nearby participating provider. Patient Education Materials: How to Use Compression Stockings; Pelvic Pain, Female A MESSAGE TO ALL PATIENTS REGARDING OPIOIDS PRESCRIPTION OPIOIDS: WHAT YOU NEED TO KNOW Prescription opioids can be used to help relieve hfqwymin-er-deoigr pain and are often prescribed following a surgery or injury, or for certain health conditions. These medications can be an important part of the treatment but also come with serious risks. It is important to work with your healthcare provider to make sure you are getting the safest, most effective care. WHAT ARE THE RISKS AND SIDE EFFECTS OF OPIOID USE? Prescription opioids carry serious risks of addiction and overdose, especially with prolonged use. An opioid overdose, often marked by slowed breathing, can cause sudden . The use of prescription opioids can have a number of side effects as well, even when taken as directed: ??? Tolerance???meaning you might need to take more of the medication for the same pain relief ??? Physical dependence???meaning you have symptoms of withdrawal when a medication is stopped ??? Increased sensitivity to pain ??? Constipation ??? Nausea, vomiting, and dry mouth ??? Sleepiness and dizziness ??? Confusion ??? Depression ??? Low levels of testosterone that can result in lower sex drive, energy, and strength ??? Itching and sweating RISKS ARE GREATER WITH: ??? History of drug misuse, substance use disorder, or overdose ??? Mental health conditions (such as depression or anxiety) ??? Sleep apnea ??? Older age (65 years and older) ??? Avoid alcohol while taking prescription opioids. Also, unless specifically advised by your health care provider, medications to avoid include: ??? Benzodiazepines (such as Xanax or Valium) ??? Muscle relaxant (more content not included)...NormalThe Surgical Hospital At SouthwoodsExtra Blueon [id number] Collected PlasmaYesInvalid Interpretation Code The [facility] Hospital [facility] SouthwoodsComment on above:Performed By: #### [id number] #### [facility] [address] [place], [place] [address] Panelon [id number] [Mass/Vol]4.3 g/dLNormal 3.3-5.0The [facility] Hospital At SouthwoodsComment on above:Performed By: #### [id number] #### [facility] [address], [place] [address]Cijbtsc/Globulin [Mass ratio]1.6 {ratio}Normal1.1-2.2FSelect Medical Specialty Hospital - YoungstownComment on above:Performed By: #### [id number] #### [facility] [address], [place] [address]Yau Phos52 Int._Unit/QGyabou74-49QcwanaThe Surgical Hospital At Southwoods Comment on above:Performed By: #### [id number] #### [facility] [address], [place] [address]YPN2 Int._Unit/LNormal6-46The [facility] Hospital At SouthwoodsComment on above:Performed By: #### [id number] #### [facility] [address], [place] [address]NDN78 Int._Unit/LNormal5-43The [facility] Hospital At SouthwoodsComment on above:Performed By: #### [id number] #### [facility] [address], [place] [address]Yhcx Direct0.2 mg/dLNormal0.0-0.4FSelect Medical Specialty Hospital - [place] Comment on above:Performed By: #### [id number] #### [facility] [address], [place] [address]Qjix Indirect0.5 mg/dLNormal0.1-0.9[facility] Comment on above:Performed By: #### [id number] #### [facility] [address], [place] [address]Anjj Total0.7 mg/dLNormal0.0-1.1FSelect Medical Specialty Hospital - Youngstown Comment on above:Performed By: #### [id number] #### [facility] [address], [place] [address]Gtnwfxwo (S) [Mass/Vol]2.7 g/dLNormal1.4-4.0[facility]woodsComment on above:Performed By: #### [id number] #### [facility] [address], [place] [address]Plleiun [Mass/Vol]7.0 g/dLNormal6.0-7.8[facility] SouthwoodsComment on above:Performed By: #### [id number] #### [facility] [address], [place] [address]OO with Cult Rflxon [id number] (U)YellowNormalYellowThe Surgical Hospital At SouthwoodsComment on above:Result Comment: Microscopic readings are only performed on those samples that meet specific criteria set forth by [facility].Performed By: #### [id number] #### [facility] [address], [place] [address]Geyunfb (U) [Mass/Vol]NegativeNormalNegCleveland Clinic Marymount HospitalComment on above:Performed By: #### [id number] #### [facility] [address], [place] [address]Vqawfzw Ql (U)1+ mg/dLAbnormalNegCleveland Clinic Marymount HospitalComment on above:Performed By: #### [id number] #### [facility] [address] [place] [address]UR BloodNegativeNormalNegCleveland Clinic Marymount Hospital Comment on above:Performed By: #### [id number] #### [facility] [address], [place] [address]AD BacteriaTraceNormalTraceThe Surgical Hospital At SouthwoodsComment on above:Performed By: #### [id number] #### [facility] [address], [place] [address]QY ClarityTurbidAbnormalClearFisher Sinai Hospital Of BaltimoreComment on above:Performed By: #### [id number] #### [facility] [address], [place] [address]VK Leuk Xis758 Elena/uLAbnormalNegativeThe [facility] Hospital At SouthwoodsComment on above:Performed By: #### [id number] #### [facility] [address], [place] [address]HU MucousTraceNormalNegativeThe [facility] Hospital At SouthwoodsComment on above:Performed By: #### [id number] #### [facility] [address] [place] [address]MF NitriteNegativeNormalNegativeThe [facility] Comment on above:Performed By: #### [id number] #### [facility] [address], [place] [address]ZX pH7.5Invalid Interpretation Code5.0-9.0[facility] SouthwoodsComment on above:Performed By: #### [id number] #### [facility] [address], [place] [address]KV ProteinTraceAbnormalNegativeThe [facility] Comment on above:Performed By: #### [id number] #### [facility] [address] [place] [address]YG VTQ0-63Ndueiest8-1ZcxlrgSelect Medical Specialty Hospital - YoungstownComment on above:Performed By: #### [id number] #### [facility] [address], [place] [address]IO Spec Grav1.022Invalid Interpretation Code1.005-1.030[facility] SouthwoodsComment on above:Performed By: #### [id number] #### [facility] [address] [place] [address]AB Squam Epithelial>10Invalid Interpretation CodeThe Surgical Hospital At SouthwoodsComment on above:Performed By: #### [id number] #### [facility] [address], [place] [address]ZZ UrobilinogenNegativeNormalNegativeThe [facility] Hospital At SouthwoodsComment on above:Performed By: #### [id number] #### [facility] [address], [place] [address]GJ ARV35-19Govkbrjv1-2YqjlntSelect Medical Specialty Hospital - YoungstownComment on above:Performed By: #### [id number] #### [facility] [address] [place] [address] [place] [address]Aioxqvlykwzl (U) [Mass/Vol]NegativeNormalNegativeFisher Sinai Hospital Of BaltimoreComment on above:Performed By: #### [id number] #### [facility] [address], [place] [address]GF Spec DescClean CatchNormalThe [facility] Hospital At SouthwoodsComment on above:Performed By: #### [id number] #### [facility] [address], [place] [address]nTFYgz [id number] mL/min/1.73 x7Vdjemw>=59Fisher [facility]inai Hospital Of BaltimoreComment on above:Performed By: #### [id number] #### [facility] [address], [place] [address]Urymjxyphq Visit Summaryon [id number] Visit Summary Ambulatory Visit Summary YANETH DENNIS :2000 Visit Date:03/06/2025 Ambulatory Visit Instructions Your Diagnosis Back pain with history of spinal surgery Cervical spine pain Injury of cervical spine, Injury of cervical spine BMI 29.0-29.9,adult Overweight Muscle spasm Neuropathy Other specified postprocedural states Scoliosis Thoracic spine pain Tests Performed CT Spine Cervical w/o Contrast -- Results Pending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 is no compression of the thecal sac. There is mild left foraminal narrowing due to facet hypertrophy. The right foramen is patent. At T8/T9, there is no compression of the thecal sac. The neural foramina are patent. At T9/T10, there is no compression of the thecal sac. The neural foramina are patent. At T10/T11, there is no compression of the thecal sac. The neural foramina are patent. At T11/T12, there is no compression of the thecal sac. The neural foramina are patent. At T12/L1, there is no compression of the thecal sac. The neural foramina are patent. The thoracic aorta is normal in caliber. The visualized lungs appear unremarkable. CT L SPINE FINDINGS: Coronal reconstructed images reveal a levoscoliosis centered at the L3 level. Sagittal reconstructed images reveal the patient to be status post posterior fusion from the thoracic spine extending to the level of L3. There are bilateral pedicle screws at L1, L2, and L3. There has been interval repositioning of the pedicle screws at L3 which are now properly located within the pedicles bilaterally. There is no longer incursion upon the right neural foramen due to the right pedicle screw. However, there are now lucencies surrounding both L3 pedicle screws and the left L2 pedicle screw. This is consistent with screw loosening. The surgical hardware is otherwise intact. The lumbar vertebral bodies are normal in h (more content not included)...[facility] RADIOLOGYProvider, [facility] [place] - 02/09/2025 * * *Final Report* * * DATE OF EXAM: Feb 09 2025 8:55AM [facility] 0508 - CT LUMBAR SPINE WO IVCON / PROCEDURE REASON: Arthrodesis status * * * * Physician Interpretation * * * * HISTORY: 24-year-old, arthrodesis status. TECHNIQUE: Contiguous 1.25 mm axial images are obtained through the thoracic and lumbar spines without intrathecal nor IV contrast administration. Sagittal and coronal reconstructed images are obtained following completion of the examination. Comparison is made to a CT scan of the thoracic spine 02/08/[address] scan of the lumbar spine 05/24/2023. CT Radiation dose: Integrated Dose-length product (DLP) for this visit = 556 mGy*cm. CT Dose Reduction Employed: Automated exposure control(AEC) and iterative recon RESULT: Counting reference: Lumbosacral junction. For the purposes of this report, L4-5 is considered the level of the iliac crest and the last lumbar-type disc space is considered L5/S1. AP and lateral topograms reveal the patient to be status post posterior fusion from T2 through L3. There are pedicle screws at the T2-L3, inclusive, levels with the exception of T5 and T12. There are left unilateral screws at T3, T6, and T7. There is a right pedicle screw at T11. The remainder of the levels contain bilateral pedicle screws. There is a dextroscoliosis at the midthoracic spine and a levoscoliosis at the mid lumbar spine. CT T SPINE FINDINGS: Coronal reconstructed images reveal a dextroscoliosis at the T8/T9 level. Sagittal reconstructed images reveal normal height and alignment of the thoracic vertebral bodies. There are subtle lucency surrounding the pedicle screws bilaterally at T2, the left pedicle screw at T3, the right pedicle screw at T4, the left pedicle screw at T9, the right pedicle screw at T10, and the right pedicle screw at the 11. The findings suggest screw loosening at these levels. The surgical hardware appears intact. When compared to the CT performed 02/08/2023, the pedicle screws loosening appears new. Axial images at C6/C7 reveal a tiny left paracentral osteophyte. There is no spinal stenosis nor neural foraminal narrowing. At C7/T1, there is no compression of the thecal sac nor the neural foramina. At T1/T2, there is a tiny left paracentral osteophyte minimally indenting the thecal sac. There is no spinal stenosis nor right foraminal narrowing. There is mild left foraminal narrowing due to facet hypertrophy. At T2/T3, there is a tiny left paracentral osteophyte indenting the thecal sac. There is no spinal stenosis nor cord compression. The left foramen is patent. There is mild right foraminal narrowing due to facet hypertrophy. At T3/T4, there is a tiny right paracentral osteophyte. There is no spinal stenosis nor cord compression. The left foramen is patent. There is moderate right foraminal narrowing due to osteophytic spurring. There is also mild incursion of the right neural foramen due to the pedicle screw. At T4/T5, there is a tiny right paracentral osteophyte. There is no spinal stenosis. The neural foramina are patent. At T5/T6, there is no spinal stenosis. The right foramen is patent. There is mild left foraminal narrowing due to facet hypertrophy. At T6/T7, there is no compression of the thecal sac. There is mild bilateral foraminal narrowing due to facet hypertrophy. At T7/T8, there is no compression of the thecal sac. There is mild left foraminal narrowing due to facet hypertrophy. The right foramen is patent. At T8/T9, there is no compression of the thecal sac. The neural foramina are patent. At T9/T10, there is no compression of the thecal sac. The neural foramina are patent. At T10/T11, there is no compression of the thecal sac. The neural foramina are patent. At T11/T12, there is no compression of the thecal sac. The neural foramina are patent. At T12/L1, there is no compression of the thecal sac. The neural foramina are patent. The thoracic aorta is normal in caliber. The visualized lungs appear unremarkable. CT L SPINE FINDINGS: Coronal reconstructed images reveal a levoscoliosis centered at the L3 level. Sagittal reconstructed images reveal the patient to be status post posterior fusion from the thoracic spine extending to the level of L3. There are bilateral pedicle screws at L1, L2, and L3. There has been interval repositioning of the pedicle screws at L3 which are now properly located within the pedicles bilaterally. There is no longer incursion upon the right neural foramen due to the right pedicle screw. However, there are now lucencies surrounding both L3 pedicle screws and the left L2 pedicle screw. This is consistent with screw loosening. The surgical hardware is otherwise intact. The lumbar vertebral bodies ar (more content not included)...[facility] THORACIC SPINE WO IVCONon [id number] THORACIC SPINE WO IVCON* * *Final Report* * * DATE OF EXAM: Feb 09 2025 8:55AM [facility] 0514 - CT THORACIC SPINE WO IVCON / PROCEDURE REASON: Arthrodesis status * * * * Physician Interpretation * * * * HISTORY: 24-year-old, arthrodesis status. TECHNIQUE: Contiguous 1.25 mm axial images are obtained through the thoracic and lumbar spines without intrathecal nor IV contrast administration. Sagittal and coronal reconstructed images are obtained following completion of the examination. Comparison is made to a CT scan of the thoracic spine 02/08/[address] scan of the lumbar spine 05/24/2023. CT Radiation dose: Integrated Dose-length product (DLP) for this visit = 556 mGy*cm. CT Dose Reduction Employed: Automated exposure control(AEC) and iterative recon RESULT: Counting reference: Lumbosacral junction. For the purposes of this report, L4-5 is considered the level of the iliac crest and the last lumbar-type disc space is considered L5/S1. AP and lateral topograms reveal the patient to be status post posterior fusion from T2 through L3. There are pedicle screws at the T2-L3, inclusive, levels with the exception of T5 and T12. There are left unilateral screws at T3, T6, and T7. There is a right pedicle screw at T11. The remainder of the levels contain bilateral pedicle screws. There is a dextroscoliosis at the midthoracic spine and a levoscoliosis at the mid lumbar spine. CT T SPINE FINDINGS: Coronal reconstructed images reveal a dextroscoliosis at the T8/T9 level. Sagittal reconstructed images reveal normal height and alignment of the thoracic vertebral bodies. There are subtle lucency surrounding the pedicle screws bilaterally at T2, the left pedicle screw at T3, the right pedicle screw at T4, the left pedicle screw at T9, the right pedicle screw at T10, and the right pedicle screw at the 11. The findings suggest screw loosening at these levels. The surgical hardware appears intact. When compared to the CT performed 02/08/2023, the pedicle screws loosening appears new. Axial images at C6/C7 reveal a tiny left paracentral osteophyte. There is no spinal stenosis nor neural foraminal narrowing. At C7/T1, there is no compression of the thecal sac nor the neural foramina. At T1/T2, there is a tiny left paracentral osteophyte minimally indenting the thecal sac. There is no spinal stenosis nor right foraminal narrowing. There is mild left foraminal narrowing due to facet hypertrophy. At T2/T3, there is a tiny left paracentral osteophyte indenting the thecal sac. There is no spinal stenosis nor cord compression. The left foramen is patent. There is mild right foraminal narrowing due to facet hypertrophy. At T3/T4, there is a tiny right paracentral osteophyte. There is no spinal stenosis nor cord compression. The left foramen is patent. There is moderate right foraminal narrowing due to osteophytic spurring. There is also mild incursion of the right neural foramen due to the pedicle screw. At T4/T5, there is a tiny right paracentral osteophyte. There is no spinal stenosis. The neural foramina are patent. At T5/T6, there is no spinal stenosis. The right foramen is patent. There is mild left foraminal narrowing due to facet hypertrophy. At T6/T7, there is no compression of the thecal sac. There is mild bilateral foraminal narrowing due to facet hypertrophy. At T7/T8, there is no compression of the thecal sac. There is mild left foraminal narrowing due to facet hypertrophy. The right foramen is patent. At T8/T9, there is no compression of the thecal sac. The neural foramina are patent. At T9/T10, there is no compression of the thecal sac. The neural foramina are patent. At T10/T11, there is no compression of the thecal sac. The neural foramina are patent. At T11/T12, there is no compression of the thecal sac. The neural foramina are patent. At T12/L1, there is no compression of the thecal sac. The neural foramina are patent. The thoracic aorta is normal in caliber. The visualized lungs appear unremarkable. CT L SPINE FINDINGS: Coronal reconstructed images reveal a levoscoliosis centered at the L3 level. Sagittal reconstructed images reveal the patient to be status post posterior fusion from the thoracic spine extending to the level of L3. There are bilateral pedicle screws at L1, L2, and L3. There has been interval repositioning of the pedicle screws at L3 which are now properly located within the pedicles bilaterally. There is no longer incursion upon the right neural foramen due to the right pedicle screw. However, there are now lucencies surrounding both L3 pedicle screws and the left L2 pedicle screw. This is consistent with screw loosening. The surgical hardware is otherwise intact. The lumbar vertebral bodies are normal in height and alignment. The intervertebral disc spaces are maintained in height. Axial images at T12/L1 reveal no compressi (more content not included)...[facility] Thoracic spine WO contraston 02-09-2025* * *Final Report* * * DATE OF EXAM: Feb 09 2025 8:55AM [facility] 0514 - CT THORACIC SPINE WO IVCON / PROCEDURE REASON: Arthrodesis status * * * * Physician Interpretation * * * * HISTORY: 24-year-old, arthrodesis status. TECHNIQUE: Contiguous 1.25 mm axial images are obtained through the thoracic and lumbar spines without intrathecal nor IV contrast administration. Sagittal and coronal reconstructed images are obtained following completion of the examination. Comparison is made to a CT scan of the thoracic spine 02/08/[address] scan of the lumbar spine 05/24/2023. CT Radiation dose: Integrated Dose-length product (DLP) for this visit = 556 mGy*cm. CT Dose Reduction Employed: Automated exposure control(AEC) and iterative recon RESULT: Counting reference: Lumbosacral junction. For the purposes of this report, L4-5 is considered the level of the iliac crest and the last lumbar-type disc space is considered L5/S1. AP and lateral topograms reveal the patient to be status post posterior fusion from T2 through L3. There are pedicle screws at the T2-L3, inclusive, levels with the exception of T5 and T12. There are left unilateral screws at T3, T6, and T7. There is a right pedicle screw at T11. The remainder of the levels contain bilateral pedicle screws. There is a dextroscoliosis at the midthoracic spine and a levoscoliosis at the mid lumbar spine. CT T SPINE FINDINGS: Coronal reconstructed images reveal a dextroscoliosis at the T8/T9 level. Sagittal reconstructed images reveal normal height and alignment of the thoracic vertebral bodies. There are subtle lucency surrounding the pedicle screws bilaterally at T2, the left pedicle screw at T3, the right pedicle screw at T4, the left pedicle screw at T9, the right pedicle screw at T10, and the right pedicle screw at the 11. The findings suggest screw loosening at these levels. The surgical hardware appears intact. When compared to the CT performed 02/08/2023, the pedicle screws loosening appears new. Axial images at C6/C7 reveal a tiny left paracentral osteophyte. There is no spinal stenosis nor neural foraminal narrowing. At C7/T1, there is no compression of the thecal sac nor the neural foramina. At T1/T2, there is a tiny left paracentral osteophyte minimally indenting the thecal sac. There is no spinal stenosis nor right foraminal narrowing. There is mild left foraminal narrowing due to facet hypertrophy. At T2/T3, there is a tiny left paracentral osteophyte indenting the thecal sac. There is no spinal stenosis nor cord compression. The left foramen is patent. There is mild right foraminal narrowing due to facet hypertrophy. At T3/T4, there is a tiny right paracentral osteophyte. There is no spinal stenosis nor cord compression. The left foramen is patent. There is moderate right foraminal narrowing due to osteophytic spurring. There is also mild incursion of the right neural foramen due to the pedicle screw. At T4/T5, there is a tiny right paracentral osteophyte. There is no spinal stenosis. The neural foramina are patent. At T5/T6, there is no spinal stenosis. The right foramen is patent. There is mild left foraminal narrowing due to facet hypertrophy. At T6/T7, there is no compression of the thecal sac. There is mild bilateral foraminal narrowing due to facet hypertrophy. At T7/T8, there is no compression of the thecal sac. There is mild left foraminal narrowing due to facet hypertrophy. The right foramen is patent. At T8/T9, there is no compression of the thecal sac. The neural foramina are patent. At T9/T10, there is no compression of the thecal sac. The neural foramina are patent. At T10/T11, there is no compression of the thecal sac. The neural foramina are patent. At T11/T12, there is no compression of the thecal sac. The neural foramina are patent. At T12/L1, there is no compression of the thecal sac. The neural foramina are patent. The thoracic aorta is normal in caliber. The visualized lungs appear unremarkable. CT L SPINE FINDINGS: Coronal reconstructed images reveal a levoscoliosis centered at the L3 level. Sagittal reconstructed images reveal the patient to be status post posterior fusion from the thoracic spine extending to the level of L3. There are bilateral pedicle screws at L1, L2, and L3. There has been interval repositioning of the pedicle screws at L3 which are now properly located within the pedicles bilaterally. There is no longer incursion upon the right neural foramen due to the right pedicle screw. However, there are now lucencies surrounding both L3 pedicle screws and the left L2 pedicle screw. This is consistent with screw loosening. The surgical hardware is otherwise intact. The lumbar vertebral bodies are normal in (more content not included)...[facility] RADIOLOG[facility]Provider, [facility] [place] - 02/09/2025 * * *Final Report* * * DATE OF EXAM: Feb 09 2025 8:55AM [facility] 0514 - CT THORACIC SPINE WO IVCON / PROCEDURE REASON: Arthrodesis status * * * * Physician Interpretation * * * * HISTORY: 24-year-old, arthrodesis status. TECHNIQUE: Contiguous 1.25 mm axial images are obtained through the thoracic and lumbar spines without intrathecal nor IV contrast administration. Sagittal and coronal reconstructed images are obtained following completion of the examination. Comparison is made to a CT scan of the thoracic spine 02/08/[address] scan of the lumbar spine 05/24/2023. CT Radiation dose: Integrated Dose-length product (DLP) for this visit = 556 mGy*cm. CT Dose Reduction Employed: Automated exposure control(AEC) and iterative recon RESULT: Counting reference: Lumbosacral junction. For the purposes of this report, L4-5 is considered the level of the iliac crest and the last lumbar-type disc space is considered L5/S1. AP and lateral topograms reveal the patient to be status post posterior fusion from T2 through L3. There are pedicle screws at the T2-L3, inclusive, levels with the exception of T5 and T12. There are left unilateral screws at T3, T6, and T7. There is a right pedicle screw at T11. The remainder of the levels contain bilateral pedicle screws. There is a dextroscoliosis at the midthoracic spine and a levoscoliosis at the mid lumbar spine. CT T SPINE FINDINGS: Coronal reconstructed images reveal a dextroscoliosis at the T8/T9 level. Sagittal reconstructed images reveal normal height and alignment of the thoracic vertebral bodies. There are subtle lucency surrounding the pedicle screws bilaterally at T2, the left pedicle screw at T3, the right pedicle screw at T4, the left pedicle screw at T9, the right pedicle screw at T10, and the right pedicle screw at the 11. The findings suggest screw loosening at these levels. The surgical hardware appears intact. When compared to the CT performed 02/08/2023, the pedicle screws loosening appears new. Axial images at C6/C7 reveal a tiny left paracentral osteophyte. There is no spinal stenosis nor neural foraminal narrowing. At C7/T1, there is no compression of the thecal sac nor the neural foramina. At T1/T2, there is a tiny left paracentral osteophyte minimally indenting the thecal sac. There is no spinal stenosis nor right foraminal narrowing. There is mild left foraminal narrowing due to facet hypertrophy. At T2/T3, there is a tiny left paracentral osteophyte indenting the thecal sac. There is no spinal stenosis nor cord compression. The left foramen is patent. There is mild right foraminal narrowing due to facet hypertrophy. At T3/T4, there is a tiny right paracentral osteophyte. There is no spinal stenosis nor cord compression. The left foramen is patent. There is moderate right foraminal narrowing due to osteophytic spurring. There is also mild incursion of the right neural foramen due to the pedicle screw. At T4/T5, there is a tiny right paracentral osteophyte. There is no spinal stenosis. The neural foramina are patent. At T5/T6, there is no spinal stenosis. The right foramen is patent. There is mild left foraminal narrowing due to facet hypertrophy. At T6/T7, there is no compression of the thecal sac. There is mild bilateral foraminal narrowing due to facet hypertrophy. At T7/T8, there is no compression of the thecal sac. There is mild left foraminal narrowing due to facet hypertrophy. The right foramen is patent. At T8/T9, there is no compression of the thecal sac. The neural foramina are patent. At T9/T10, there is no compression of the thecal sac. The neural foramina are patent. At T10/T11, there is no compression of the thecal sac. The neural foramina are patent. At T11/T12, there is no compression of the thecal sac. The neural foramina are patent. At T12/L1, there is no compression of the thecal sac. The neural foramina are patent. The thoracic aorta is normal in caliber. The visualized lungs appear unremarkable. CT L SPINE FINDINGS: Coronal reconstructed images reveal a levoscoliosis centered at the L3 level. Sagittal reconstructed images reveal the patient to be status post posterior fusion from the thoracic spine extending to the level of L3. There are bilateral pedicle screws at L1, L2, and L3. There has been interval repositioning of the pedicle screws at L3 which are now properly located within the pedicles bilaterally. There is no longer incursion upon the right neural foramen due to the right pedicle screw. However, there are now lucencies surrounding both L3 pedicle screws and the left L2 pedicle screw. This is consistent with screw loosening. The surgical hardware is otherwise intact. The lumbar vertebral bodies (more content not included)...[facility] Panel Informationon [id number]: 1. Posterior fusion from T2 through L3. 2. Evidence for loosening of multiple pedicle screws in the thoracic region, a new finding when compared to the prior study. 3. Multilevel spondylosis with osteophytic spurring and facet hypertrophy as noted above. The right pedicle screw at T3/T4 contributes to right foraminal narrowing. 4. Interval repositioning of the L3 pedicle screws. There is no longer incursion of the right neural foramen by the right pedicle screw. 5. Lucency surrounding the bilateral L3 pedicle screws as well as the left L2 pedicle screw consistent with screw loosening. 6. Bulging disc and right paracentral disc protrusion at L4/L5 compressing the thecal sac and causing mild to moderate central stenosis. This was present previously. 7. Thoracolumbar scoliosis. Checkerer Hand: PSCB Transcribe Date/Time: Feb 09 2025 9:06A Dictated by : FRANK BENJAMIN MD This examination was interpreted and the report reviewed and electronically signed by: FRANK BENJAMIN MD on Feb 09 2025 9:34AM CHRIS CHAVEZ RADIOLOGYRadiology Study observation (narrative)[facility] InformationOrdered By: [facility] Provider on [id number] ClinicXR SCOLIOSIS 2V PA STAND/LATon [id number] SCOLIOSIS 2V PA STAND/LAT* * *Final Report* * * DATE OF EXAM: Feb 09 2025 9:18AM [id number] - XR SCOLIOSIS 2V PA STAND/LAT / PROCEDURE REASON: Arthrodesis status * * * * Physician Interpretation * * * * EXAM: XR SCOLIOSIS 2V PA STAND/LAT CLINICAL: Follow-up arthrodesis TECHNIQUE: Standing radiographs of the thoracolumbar spine were obtained for measurement of the scoliotic curvature by the clinical service. COMPARISON: 07/31/2023 RESULT: Postoperative changes: Posterior spinal fusion spanning T2-L3. No evidence of hardware failure. Similar residual S-shaped scoliosis of the thoracolumbar spine. Exaggeration of the normal lumbar lordosis and straightening of the normal cervical lordosis. Vertebral body and disc heights are maintained. IMPRESSION: T2-L3 posterior fusion with intact hardware and unchanged residual S-shaped scoliosis. Checkerer Hand: PSCB Transcribe Date/Time: Feb 11 2025 8:29A Dictated by : MARC DESIR MD This examination was interpreted and the report reviewed and electronically signed by: EDGAR LECHUGA MD on Feb 11 2025 9:09AM EST [id number] [facility] Thoracic and lumbar spine Views for scoliosis W standingon [id number] Study observation (narrative) [facility] [id number] Visit (SPNSMN) YANETH DENNIS ([id number]) 1 F Date Time Provider Department 02/05/25 2:20 PM SUMEET DE LA CRUZ SPNSMN During your visit today, we recorded the following information about you: Pulse Respiration Blood pressure Weight 70/minute 18/minute 119/76 87 kg Height Last Period 1.727 m 01/13/25 Sumeet De La Cruz MD 02/24/2025 10:37 AM Signed SPINE SURGERY ESTABLISHED This is an in-person visit. Staff note: VANESSA Wolfe is a 24-year-old female presenting with back pain. Yaneth reports experiencing back pain primarily located in the middle and right side. She expresses concern about engaging in physical therapy due to fear of exacerbating her condition, especially given her history of spinal surgery involving screws placed in the cord. ROS Musculoskeletal: (+) right-sided back pain PE General: Appears well. Back: Midline tenderness, right-sided tenderness. Skin: Normal appearance. baseline neurologial examination AP 1. Arthrodesis status (Z98.1) 2. Spinal stenosis of cervical region (M48.02) - Patient presents with localized pain in the mid-back, primarily on the right side. - Physical examination reveals no skin abnormalities. - Ordered X-rays to assess stability of the spine. - Ordered CT scan of the entire spine to evaluate the condition of the screws and fusion mass, and to ensure proper healing. - Discussed the importance of physical therapy post-imaging to aid in recovery. - Consideration for muscle relaxants post-imaging if necessary. - Reassured patient that while pain is acknowledged, there is no immediate concern for catastrophic issues. - Will review CT scan results thoroughly and follow up with the patient. - Get x-rays of your spine today to confirm that everything is stable; these have been ordered for you. - Schedule a CT scan of your entire spine (including the area around your hips) at the [facility] facility; the imaging order has been sent. - We will review your x-rays and CT images and call you with results. If all screws and fusion sites look stable, you can begin physical therapy and start muscle relaxant medication as discussed. - Ask your airline pilot flight instructor to fax the requested paperwork again to our office; nurse Rashad will confirm the correct fax number and let you know once it?s received. 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 Overall she did well from this revision surgery though has unchanged complaints of balance issues and lower extremity decreased sensation. We are seeing her today because of new complaints of a bump in between her shoulder blades. She describes first noticing this bump 3 to 4 months ago. It increases and decreases in swelling and pain. Sometimes appearing bruised. She denies any new neurologic complaints. She has at baseline bilateral lower extremity weakness as well as issues with balance. These all began after her initial AIS surgery done at an outside hospital. At last visit it was recommended that we obtain repeat CT scans however this was not obtained. REVIEW OF SYSTEMS: GENERAL: No weight loss or malaise MUSCULOSKELETAL: Negative for joint pain, swelling or muscle pain NEURO: No history of headaches, syncope, paralysis, seizures or tremors MEDICATIONS: dextroamphetamine-amphetamine (ADDERALL) 10 mg tablet Take 10 mg by mouth once daily. amphetamine-dextroamphetamine XR (ADDERALL XR) 10 mg capsule Take 10 mg by mouth once daily. tiZANidine HCl (ZANAFLEX) 4 mg capsule Take 4 mg by mouth daily at bedtime. acetaminophen (TYLENOL) 500 mg tablet 2 tablets by ORAL/FEEDING TUBE route every 6 hours as needed for pain. Norethin Caden-Eth Estrad-FE (10/07, ,) 1 mg-20 mcg (21)/75 mg (7) per tablet TAKE 1 TABLET BY MOUTH EVERY DAY escitalopram oxalate (LEXAPRO) 20 mg tablet Take 30 mg by mouth every afternoon. hydrOXYzine HCl (ATARAX) 25 mg tablet TAKE 1 TABLET BY MOUTH 4 TIMES A DAY NEEDED FOR ANXIETY methocarbamol (ROBAXIN) 750 mg tablet Take 1 tablet by mouth every 6 hours as needed. (Patient not taking: Reported on 01/02/2024) senna-docusate (SENNA-S) 8.6-50 mg per tablet Take 2 tablets by mouth two times a day. (Patient not taking: Reported on 01/02/2024) Patient Entered Questionnaires 10/14/2023 12/26/2023 01/29/2025 Spine Questions Pain Location: Upper back/torso Upper back/torso Upper back/torso Pain Duration: More than 5 years 3-6 months Pain over last 6 months: Less than half the days in the past 6 months At least half the days in the past 6 months Symptoms from neck/cervical spine: Yes Yes Yes Employment Status: Other Other Off work 1 (more content not included)...[facility] [id number] TextNormalCMiami Valley Hospital [id number] Telephone (NIQ) NITAYANETH OLEARY ([id number]) 1 F Date Time Provider Department 02/04/25 SUMEET DE LA CRUZ During your visit today, we recorded the following information about you: Concha Mcbride 02/04/2025 3:59 PM Signed Letter sent to appeal denial of CT Lumbar and CT Thoracic to: Appeals Confirmation received. Kathrin Silva 02/17/2025 1:18 PM Addendum Received the following record(s) via fax. -CT Lumbar spine appeal approved 02/14/25 -CT Thoracic appeal approved 02/14/25 Record(s) scanned into pt's chart. Kathrin Silva Allergies As of Date: 02/04/2025 Noted Allergy Reaction AMOXICILLIN-POT CLAVULANATE 04/24/2023 11 - Vomiting Date Reviewed: 01/02/2024 Reviewed by: Nancy Ramirez LPN - Fully Assessed Reason for Visit: Appeal Sent [Other] Prescriptions as of 02/17/2025 - dextroamphetamine-amphetamine (ADDERALL) 10 mg tablet Take 10 mg by mouth once daily. - amphetamine-dextroamphetamine XR (ADDERALL XR) 10 mg capsule Take 10 mg by mouth once daily. - tiZANidine HCl (ZANAFLEX) 4 mg capsule Take 4 mg by mouth daily at bedtime. - acetaminophen (TYLENOL) 500 mg tablet 2 tablets by ORAL/FEEDING TUBE route every 6 hours as needed for pain. - methocarbamol (ROBAXIN) 750 mg tablet Take 1 tablet by mouth every 6 hours as needed. - senna-docusate (SENNA-S) 8.6-50 mg per tablet Take 2 tablets by mouth two times a day. - Norethin Caden-Eth Estrad-FE (,) 1 mg-20 mcg (21)/75 mg (7) per tablet TAKE 1 TABLET BY MOUTH EVERY DAY - escitalopram oxalate (LEXAPRO) 20 mg tablet Take 30 mg by mouth every afternoon. 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] 04/24/2023 Depressive disorder [F32.A] 04/24/2023 Postoperative pain [G89.18] 04/24/2023 Diagnosed: 04/24/2023 Back pain [M54.9] 04/24/2023 Diagnosed: 04/24/2023 Family history of breast cancer [Z80.3] 04/24/2023 Diagnosed: 04/24/2023 Moderate major depression (HCC) [F32.1] 10/06/2022 Diagnosed: 04/24/2023 Scoliosis [M41.9] 03/02/2022 Diagnosed: 04/24/2023 Social phobia [F40.10] 04/24/2023 Diagnosed: 04/24/2023 Anxiety disorder due to medical condition [F06.*04/24/2023 Diagnosed: 04/24/2023 Obese [E66.9] 06/16/2023 Pelvic pain [R10.2] 06/16/2023 Thoracic myelopathy [M47.14] 07/11/2023 Painful orthopaedic hardware (HCC) [T84.84XA] 07/12/2023 Fusion of spine, thoracolumbar region [M43.25] 07/12/2023 Acute postoperative anemia due to expected bloo*07/12/2023 Urinary retention [R33.9] 07/13/2023 UTI (urinary tract infection) [N39.0] 07/14/2023 Encounter Status:Closed by CONCHA MCBRIDE on 02/04/25[facility] Summaryon [id number] Visit Summary Ambulatory Visit Summary YANETH DENNIS :2000 Visit Date:01/22/2025 Ambulatory Visit Instructions Your Diagnosis ADHD, ADHD Thoracic spine pain, Thoracic spine pain Scoliosis Your Care Team Attending Physician - CIERSMIRI CHEEMA Primary Care Physician - MIRI MAX This Is Your Medications List Misc Prescription (cane) Misc Prescription (handicap placard) acetaminophen-oxycodone (Percocet 7.5 mg-325 mg oral tablet) amphetamine-dextroamphetamine (Adderall 10 mg oral tablet) amphetamine-dextroamphetamine (Adderall XR 10 mg Cap-ER) diazepam (Valium 10 mg Tab) escitalopram (Lexapro 20 mg Tab) escitalopram (escitalopram 10 mg Tab) ethinyl estradiol-norethindrone (10/07 oral tablet) gabapentin (gabapentin 300 mg Cap) hydrOXYzine (hydrOXYzine hydrochloride 25 mg Tab) imiquimod topical (imiquimod Top 5% Crm) tizanidine (tiZANidine 4 mg Tab) Procedures Performed Tonsillectomy, tubes in ears. Discharge Vitals Heart Rate (Peripheral) 67 Blood Pressure 130/74 Height 172 cm Height 68 in Weight 88.7 kg Weight 195.55 lb BMI 29.98 Medications What How Much When Why Instructions Unchanged acetaminophen-oxycodone (Percocet 7.5 mg-325 mg oral tablet) 1 Tablets By Mouth 3 times aday Scoliosis Thoracic spine pain Pickup at [facility]/pharmacy #[id number] Unchanged amphetamine-dextroamphetamine (Adderall 10 mg oral tablet) 1 Tablets By Mouth Once a day (in the morning) ADHD Pickup at [facility]/pharmacy #[id number] Unchanged amphetamine-dextroamphetamine (Adderall XR 10 mg Cap-ER) 1 Capsules By Mouth Once a day (in the morning) ADHD Pickup at [facility]/pharmacy #[id number] Unchanged diazepam (Valium 10 mg Tab) 1 Tablets By Mouth Once Unchanged escitalopram (escitalopram 10 mg Tab) 1 Tablets By Mouth Every day Take with 20mg tab fortotal daily dose of 30mg Unchanged escitalopram (Lexapro 20 mg Tab) 1 Tablets By Mouth Every day Depression Take with 10mg tab for total daily dose of 30mg Unchanged ethinyl estradiol-norethindrone ( oral tablet) TAKE 1 TABLET BY MOUTH EVERYDAY Unchanged gabapentin (gabapentin 300 mg Cap) 1 Capsules By Mouth 3 times a day Neuropathy Unchanged hydrOXYzine (hydrOXYzine hydrochloride 25 mg Tab) 1 Tablets By Mouth 4 times a day as needed for for anxiety Anxiety Unchanged imiquimod topical (imiquimod Top 5% Crm) 1 Application Topical 2 times a day Warts Unchanged Misc Prescription (cane) See instructions Lumbar radiculopathy Nerve pain dispense 1 cane. Unchanged Misc Prescription (handicap placard) See instructions Lumbar radiculopathy dispense 1 handicap placard. exp: 2029 Unchanged tizanidine (tiZANidine 4 mg Tab) 1 Tablets By Mouth Once a day (in the evening) Muscle spasm Pharmacy Information [facility]/pharmacy #[id number]: [address] [place], [place] [id number] [phone] Allergies Augmentin (Vomiting) Problems Ongoing - Any problem that you are currently receiving treatment for. ADHD Asthma Attention deficit hyperactivity disorder (ADHD), combined type, moderate Back pain with history of spinal surgery Battered adult Bilateral hip pain Complex posttraumatic stress disorder Depression Encounter for family education about Adverse Childhood Experience questionnaire score Falls Gait abnormality History of adverse childhood experiences Insulin resistance Moderate major depression Nerve damage Neuropathy Relationship dysfunction Right groin pain Scoliosis Smoker Strep throat Suspected autism disorder Thoracic spine pain Wart Historical - Any problem that you are no longer receiving treatment for. Anxiety disorder due to medical condition Ear infections Inattention Scoliosis Patient Survey You may receive a survey via text or e-mail asking about your office visit. Please share your experience with us by completing your survey. We appreciate your feedback and thank you for choosing us for your care. [facility] Medicine Office/Clinic Noteon [id number] Medicine Office/Clinic NoteS[facility] Office/Clinic Note Chief Complaint f/u on adderall HPI Staff f/u on adderall Sleeping well: Yes, 6-8 hours Eating habits:Eating well, maintaining weight Side effects: None Work completion: Concentrated at work Focused at home: Yes Concerns/complaints: None History of Present Illness Yaneth is a 24 year old female who presents for a fu on adderall. She is doing well on her current regimen of adderall XR 10 AM and adderall IR 10 afternoon. She feels this controls her ADHD symptoms very well and has no issues or concerns. OARRS reviewed. Back pain: she continues with upper back pain to the right side of her spine in the lower cervical spine/upper thoracic spine. There is a hard lump to the right of the spine that has been there for at least a few months and is very painful. The pain is radiating into the right arm, low back, and shoulder. She is having so much discomfort she is having difficulty with ambulation, ADL's, and all rou fernanda life tasks. She has her mom helping her throughout the day as she is unable to do any daily tasks and ADL's without significant pain. Her mom has to do most things for her, including helping herget dressed, sweep the floor, do dishes, and she is no longer operating a vehicle due to pain. She is pending an MRI of the area through [facility] and her prior surgeon and this is scheduled for February 05. She is likely going to require additional work up and possibly surgical intervention as this area is significantly impacting her quality of life and ability to function and raise her children. Sheis unable to work. I am going to again refill her pain medication as we are pending further eval. Staff HPI and OARRS reviewed. Review of Systems PHQ Score Initial Depression Screen Score: 4 SCORE Detailed Depression Screen Score: 12 Total Depression Screen Score: 16 Physical Exam Vitals & Measurements HR: 67(Peripheral) BP: 130/74 SpO2: 98% HT: 172 cm HT: 68 in WT: 88.7 kg WT: 195.55 lb BMI: 29.98 upper thoracic spine: right of the spine is a firm, non moveable hard mass that is very tender to the touch. Patient unable to lift right arm >45 degrees, and there is trace non pitting edema to this area as well. Assessment/Plan 1. ADHD, (F90.9: Attention-deficit hyperactivity disorder, unspecified type)ADHD refill adderall fu 3 m Ordered: amphetamine-dextroamphetamine, 10 mg = 1 cap(s), Oral, qAM, # 30 cap(s), Refills(s) 0, Pharmacy: [facility]acy #[id number], 172, cm, 01/22/25 15:54:00 EDT, Height/Length Dosing, 88.7, kg, 01/22/25 15:54:00 EDT, Weight Dosing amphetamine-dextroamphetamine, 10 mg, 1 tab(s), Oral, qAM, 30 tab(s), Refill(s) 0, [id number], 172, cm, 01/22/25 15:54:00 EDT, Height/Length Dosing, 88.7, kg, 01/22/25 15:54:00 EDT, Weight Dosing 2. Thoracic spine pain, (M54.6: Pain in thoracic spine)Thoracic spine pain refill percocet pending MRI February 05 remain off work Ordered: acetaminophen-oxycodone, 1 tab(s), Oral, TID, 30 tab(s), Refill(s) 0, [id number], 172, cm, 01/22/25 15:54:00 EDT, Height/Length Dosing, 88.7, kg, 01/22/25 15:54:00 EDT, Weight Dosing Scoliosis (M41.9: Scoliosis, unspecified) Ordered: acetaminophen-oxycodone, 1 tab(s), Oral, TID, 30 tab(s), Refill(s) 0, [id number], 172, cm, 01/22/25 15:54:00 EDT, Height/Length Dosing, 88.7, kg, 01/22/25 15:54:00 EDT, Weight Dosing Follow-up No qualifying data available Problem List/Past Medical History Ongoing ADHD Asthma Attention deficit hyperactivity disorder (ADHD), combined type, moderate Back pain with history of spinal surgery Battered adult Bilateral hip pain Complex posttraumatic stress disorder Depression Encounter for family education about Adverse Childhood Experience questionnaire score Falls Gait abnormality History of adverse childhood experiences Insulin resistance Moderate major depression Nerve damage Neuropathy Relationship dysfunction Right groin pain Scoliosis Smoker Strep throat Suspected autism disorder Thoracic spine pain Wart 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 Medications Adderall 10 mg oral tablet, 10 mg= 1 tab(s), Oral, qAM Adderall XR 10 mg Cap-ER, 10 mg= 1 cap(s), Oral, qAM cane, See Instructions escitalopram 10 mg Tab, 10 mg= 1 tab(s), Oral, Daily, 3 refills gabapentin 300 mg Cap, 300 mg= 1 cap(s), Oral, TID, 3 refills handicap placard, See Instructions hydrOXYzine hydrochloride 25 mg Tab, 25 mg= 1 tab(s), Oral, QID, PRN, 4 refills imiquimod Top 5% Crm, 1 john, Topical, BID, 1 refills 10/07 oral tablet Lexapro 20 mg Tab, 20 mg= 1 tab(s), Oral, Daily, 3 refills Percocet 7.5 mg-325 mg oral tablet, 1 tab(s), Oral, TID tiZANidine 4 mg Tab, 4 mg= 1 tab(s), Oral, qPM, 2 refills Valium 10 mg Tab, 1 tab(s), Oral, Once Allergies Augmentin (Vomiting) Social (more content not included)...[facility] HospitalComment on above:Result Comment: Electronically Signed By: MIRI MAX\.br\Date and Time Signed: 01/22/25 16:15 EDTAmbulatory Visit Summaryon [id number] Visit SummaryAmbulatory Visit Summary YANETH DENNIS Leatha :2000 Visit Date:01/08/2025 Ambulatory Visit Instructions Your Diagnosis Strep throat, Strep throat Thoracic spine pain Depression Scoliosis Your Care Team Attending Physician - MIRI MAX Primary Care Physician - MIRI MAX This Is Your Medications List Misc Prescription (cane) Misc Prescription (handicap placard) acetaminophen-oxycodone (Percocet 7.5 mg-325 mg oral tablet) amphetamine-dextroamphetamine (Adderall 10 mg oral tablet) amphetamine-dextroamphetamine (Adderall XR 10 mg Cap-ER) cefdinir (cefdinir 300 mg Cap) escitalopram (Lexapro 20 mg Tab) escitalopram (escitalopram 10 mg Tab) ethinyl estradiol-norethindrone (10/07 oral tablet) gabapentin (gabapentin 300 mg Cap) hydrOXYzine (hydrOXYzine hydrochloride 25 mg Tab) tizanidine (tiZANidine 4 mg Tab) [Image Removed: STOP]Stop taking these medications diazepam (Valium 10 mg Tab) Procedures Performed Tonsillectomy, tubes in ears. Discharge Vitals Heart Rate (Peripheral) 84 Blood Pressure 126/82 Height 172 cm Height 68 in Weight 88.2 kg Weight 194.447 lb BMI 29.81 Medications What How Much When Why Instructions New cefdinir (cefdinir 300 mg Cap) 1 Capsules By Mouth Every 12 hours Strep throat Duration: 7 DaysPickup at [facility]/pharmacy #[id number] Unchanged acetaminophen-oxycodone (Percocet 7.5 mg-325 mg oral tablet) 1 Tablets By Mouth 3 times aday Scoliosis Pickup at [facility]/pharmacy #[id number] Unchanged amphetamine-dextroamphetamine (Adderall 10 mg oral tablet) 1 Tablets By Mouth Once a day (in the morning) ADHD Unchanged amphetamine-dextroamphetamine (Adderall XR 10 mg Cap-ER) 1 Capsules By Mouth Once a day (in the morning) ADHD Unchanged escitalopram (escitalopram 10 mg Tab) 1 Tablets By Mouth Every day Take with 20mg tab fortotal daily dose of 30mg Unchanged escitalopram (Lexapro 20 mg Tab) 1 Tablets By Mouth Every day Depression Take with 10mg tab for total daily dose of 30mg Pickup at [facility]/pharmacy #[id number] Unchanged ethinyl estradiol-norethindrone (Junel Fe oral tablet) TAKE 1 TABLET BY MOUTH EVERYDAY Unchanged gabapentin (gabapentin 300 mg Cap) 1 Capsules By Mouth 3 times a day Neuropathy Unchanged hydrOXYzine (hydrOXYzine hydrochloride 25 mg Tab) 1 Tablets By Mouth 4 times a day as needed for for anxiety Anxiety Unchanged Misc Prescription (cane) See instructions Lumbar radiculopathy Nerve pain dispense 1 cane. Unchanged Misc Prescription (handicap placard) See instructions Lumbar radiculopathy dispense 1 handicap placard. exp: 2029 Unchanged tizanidine (tiZANidine 4 mg Tab) 1 Tablets By Mouth Once a day (in the evening) Muscle spasm Pharmacy Information [facility]/pharmacy #[id number]: [address] [place], [place] [phone] What How Much When Why Comments Stop Taking diazepam (Valium 10 mg Tab) 1 Tablets By Mouth Once as needed for for anxiety Claustrophobia one time dose prior to MRI Allergies Augmentin (Vomiting) Problems Ongoing - Any problem that you are currently receiving treatment for. ADHD Asthma Attention deficit hyperactivity disorder (ADHD), combined type, moderate Back pain with history of spinal surgery Battered adult Bilateral hip pain Complex posttraumatic stress disorder Depression Encounter for family education about Adverse Childhood Experience questionnaire score Falls Gait abnormality History of adverse childhood experiences Insulin resistance Moderate major depression Nerve damage Neuropathy Relationship dysfunction Right groin pain Scoliosis Smoker Strep throat Suspected autism disorder Thoracic spine pain Wart Historical - Any problem that you are no longer receiving treatment for. Anxiety disorder due to medical condition Ear infections Inattention Scoliosis Patient Survey You may receive a survey via text or e-mail asking about your office visit. Please share your experience with us by completing your survey. We appreciate your feedback and thank you for choosing us for your care. [facility] Medicine Office/Clinic Noteon [id number] [facility]/Clinic Note Chief Complaint Sore throat HPI Staff complaints of sore throat -wants her back looked at again Onset: 3 days Characteristics: burning OTC tried: Advil, Tylenol, Ibuprofen History of Present Illness Miri is a 24 year old female who presents for a sore throat. She was exposed to someone with strep throat. She is having difficulty swallowing, pain with swallowing, and bumps on her throat. Upper back: she has a long history of scoliosis and back surgeries. She is experiencing severe upper back pain and two rather large lumps to the sides of the spine that feel like hardware. The areas give her severe pain and cause shooting pain down the bilateral arms. She is scheduled to see her surgeon in January and neurology on 02/12/2025. She will remain on her pain medication until then. Staff HPI and OARRS reviewed. Review of Systems PHQ Score Initial Depression Screen Score: 2 SCORE Physical Exam Vitals & Measurements HR: 84(Peripheral) BP: 126/82 SpO2: 95% HT: 172 cm HT: 68 in WT: 88.2 kg WT: 194.447 lb BMI: 29.81 upper back: bilateral hard masses to the paraspinal area in the upper thoracic spine. Severe pain Throat: erythematous and small bumps noted Assessment/Plan 1. Strep throat, (J02.0: Streptococcal pharyngitis)Strep throat cefdinir as prescribed Ordered: cefdinir, 300 mg = 1 cap(s), Oral, q12hr, X 7 day(s), # 14 cap(s), Refills(s) 0, Pharmacy: [facility]/pharmacy #[id number], 172, cm, 01/08/25 13:59:00 EDT, Height/Length Dosing, 88.2, kg, 01/08/25 13:59:00 EDT, Weight Dosing 2. Thoracic spine pain (M54.6: Pain in thoracic spine) refill pain medication pending eval per neuro and surgery Depression (F32.A: Depression, unspecified) Ordered: escitalopram, 20 mg = 1 tab(s), Oral, Daily, Take with 10mg tab for total daily dose of 30mg, # 90 tab(s), Refills(s) 3, Pharmacy: [facility]/pharmacy #[id number], 172, cm, 01/08/25 13:59:00 EDT, Height/Length Dosing, 88.2, kg, 01/08/25 13:59:00 EDT, Weight Dosing Scoliosis (M41.9: Scoliosis, unspecified) Ordered: acetaminophen-oxycodone, 1 tab(s), Oral, TID, 30 tab(s), Refill(s) 0, [facility]/pharmacy #[id number], 172, cm, 01/08/25 13:59:00 EDT, Height/Length Dosing, 88.2, kg, 01/08/25 13:59:00 EDT, Weight Dosing Follow-up No qualifying data available Problem List/Past Medical History Ongoing ADHD Asthma Attention deficit hyperactivity disorder (ADHD), combined type, moderate Back pain with history of spinal surgery Battered adult Bilateral hip pain Complex posttraumatic stress disorder Depression Encounter for family education about Adverse Childhood Experience questionnaire score Falls Gait abnormality History of adverse childhood experiences Insulin resistance Moderate major depression Nerve damage Neuropathy Relationship dysfunction Right groin pain Scoliosis Smoker Strep throat Suspected autism disorder Thoracic spine pain Wart 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 Medications Adderall 10 mg oral tablet, 10 mg= 1 tab(s), Oral, qAM Adderall XR 10 mg Cap-ER, 10 mg= 1 cap(s), Oral, qAM cane, See Instructions cefdinir 300 mg Cap, 300 mg= 1 cap(s), Oral, q12hr escitalopram 10 mg Tab, 10 mg= 1 tab(s), Oral, Daily, 3 refills gabapentin 300 mg Cap, 300 mg= 1 cap(s), Oral, TID, 3 refills handicap placard, See Instructions hydrOXYzine hydrochloride 25 mg Tab, 25 mg= 1 tab(s), Oral, QID, PRN, 4 refills 10/07 oral tablet Lexapro 20 mg Tab, 20 mg= 1 tab(s), Oral, Daily, 3 refills Percocet 7.5 mg-325 mg oral tablet, 1 tab(s), Oral, TID tiZANidine 4 mg Tab, 4 mg= 1 tab(s), Oral, qPM, 2 refills Allergies Augmentin (Vomiting) Social History Alcohol - Denies Alcohol Use, 03/02/2022 Never., 08/10/2024 Substance Abuse - Denies Substance Abuse, 03/02/2022 Current. Marijuana. 1-2 times per month. Previous treatment: None., 08/10/2024 Tobacco - Denies Tobacco Use, 03/02/2022 Never (less than 100 in lifetime) Tobacco Use:. Never Smokeless Tobacco Use:. Household tobacco concerns: No., 01/08/2025 Family History Family history is negative Immunizations Vaccine Date Status Comments influenza virus vaccine, inactivated - Not Given Postpone due to refusal diphtheria/pertussis, acel/tetanus adult 01/26/2024 Given influenza virus vaccine, inactivated - Not Given Patient Refuses influenza virus vaccine, inactivated - Not Given Patient Refuses diphtheria/pertussis, acel/tetanus adult 04/20/2015 Recorded varicella virus vaccine 06/17/2008 Recorded influenza, whole 07/27/2007 Recorded poliovirus vaccine, inactivated 02/10/2006 Recorded measles/mumps/rubella virus vaccine 02/10/2006 Recorded DTaP, unspecified formulation 02/10/2006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 R10.31;Ovarian cyst Report IMPRESSION: Negative pelvic ultrasound. CLINICAL HISTORY: Ovarian cyst, R10.31 COMPARISONS: None available. TECHNICAL FACTORS: Transabdominal and transvaginal sonography with transvaginal imaging was obtained to better assess pelvic anatomy. FINDINGS: Uterus: Normal in size, shape, and echogenicity. Endometrium: Normal in appearance. Right ovary: Normal in size, shape, and echogenicity. Color flow and Doppler without anomaly. Left ovary: Normal in size, shape, and echogenicity. Color flow and Doppler without anomaly. Free fluid: None Adnexal masses: None The uterus measurements and an estimated volume are: Uterus Length: 7.8 cm Uterus Width: 4.9 cm Uterus Height: 3.2 cm Uterus Volume: 63.8 cm3 Endometrium Thickness: 0.6 cm The right ovary measurements and an estimated volume are: Right Ovary Length: 2.9 cm Right Ovary Width: 2.0 cm Right Ovary Height: 1.6 cm Right Ovary Volume: 4.8 cm3 The left ovary measurements and an estimated volume are: Left Ovary Length: 2.1 cm Left Ovary Width: 2.0 cm Left Ovary Height: 1.8 cm Report Left Ovary Volume: 3.7 cm3 Ordering Provider: , FINAL REPORT Dictated: 03/16/2024 1:35 pm Eulalio Ma MD Signed (Electronic Signature): 03/16/2024 1:35 pm Signed by: Eulalio Ma MD Transcribed by: MESERET Technologist: ODILON Technical Comments Transabdominal Ultrasound PerformedNoGood Samaritan HospitalFasaint luke's hospital Medicine Office/Clinic Noteon [id number] Medicine Office/Clinic NoteChief Complaint Discuss ADHD HPI Staff Pt is here today to discuss ADHD testing. She states her counselor Jacey would like her to get tested as she states she has signs of it. Pt states she has trouble paying attention and is very forgetful. States she will start a task and move on to another one before she finishes. She has had these issues since childhood, but was never tested. Pt is also c/o right flank pain on and off for the past yr. States it can be severe at times. She was seen for this at [facility] ED 02/12. CT Abd/pelvis Neg. Dx with UTI and was prescribed Keflex. Pt states the atb did not help. She states she is having this pain wkly, last for a couple of days. Denies urinary sx, she has daily BMs. The standard range for ages 18 and older is >=18.5 and < 25 kg/m2. Your BMI today was above this range, this falls in the overweight to obese category and there are medical benefits to weight loss. We can offer counselling, referral, and/or medical support in addressing this problem. Your BMIand weight management will be followed at subsequent visits. History of Present Illness The patient or their guardian verbally consented to allow Aaron Brown to record this visit. Yaneth Dennis is a 23-year-old female who is here today to discuss ADHD symptoms. Per recommendation of her counselor, the specific counselor has referred numerous patients back to me for ADHD and autism testing. I did delay my concern to the counselor about prescribing this patient stimulants asthere is a history of drug addiction and numerous family members with drug addiction. The patient complains of trouble paying attention and forgetfulness. She starts multiple tasks, but never finishes them. She has had these symptoms since childhood. She is also complaining of flank pain. The flankpain has been intermittent on the right side for the past year. It does get severe at times, sometimes it is mild, sometimes has none. She did go to the ER last month for this. No known history of kidney stones. She did have hematuria with the flank pain at that time. She had evidence of UTI per the ER note. They did do a CT of the abdomen, which was negative for any acute obstructive uropathy. She was given IV fluids and pain medications and pain improved. She was discharged home on Keflex forthe UTI. Reviewing the urine culture, there was no evidence of UTI. Culture was negative. Of note, the patient does have a history of scoliosis, had surgery as a child and then recently had another back surgery at [facility] in 04/2023. 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 They did a fusion with instrumentation. At an ER visit priorto the repeat surgery, they found the instrumentation had became dislodged and were into the dorsalparaspinal musculature of the thoracic upper spine. It looks like this was at the T2 through T4 region. The surgery that was done last year was a revision. The patient's spinal specialist suggests repeating a computed tomography scan to investigate ongoing numbness and tingling in her lower extremities, leading to falls, despite insurance denial for theprocedure. She presents with periodic right-sided flank discomfort, originating from the right upper quadrant,extending to the right lower quadrant, and curving towards the right inguinal region. This pain is not aggravated by specific activities, postures, or dietary intake. The onset of inguinal pain correlates with her planned surgical procedure. Pain management involves the use of ibuprofen, offering temporary alleviation. She declines pharmacological treatments, Regarding attention deficit hyperactivity disorder. Her insomnia and subsequent daytime somnolence are reported as persistent issues, which she manageseffectively, despite occasional challenges. Review of Systems PHQ Score Initial Depression Screen Score: 1 SCORE All other systems are negative except as stated in the HPI. Physical Exam Vitals & Measurements HR: 60(Peripheral) BP: 115/73 SpO2: 98% HT: 68 in HT: 172.7 cm WT: 98.2 kg WT: 216.04 lb BMI: 32.93 General: Patient is in no acute distress. Voice is well hydrated. Abdomen: Abdomen is soft, nondistended, nontender. Bowel sounds within normal limits x4. No hepatosplenomegaly. Skin: Skin is pink. Assessment/Plan 1. Inattention (R41.840: Attention and concentration deficit) Counseling has been recommended for the management of inattention. ADHD testing was proposed, however, the patient expressed no interest in pursuing this option at this time. It is concluded that this is not the primary contributor to her mood. Should her condition deteriorate, a follow-up consultation is advised. 2. Right groin pain (R10.31: Right lower quadrant pain) The etiology of the groin pain remains undetermined, however, the CT scan of the abdomen and pelviswas largely benign, revealing a right adnexal cyst. A pelvic ultrasound will be conducted to rule out a (more content not included)...Normal [facility] SouthwoodsComment on above:Result Comment: Electronically Signed By: Bianka WOODS CNP\.br\Date and Time Signed: 03/13/24 07:55 EDT\.br\Electronically Co-Signed By: Marshal Arteaga\.br\Date and Time Co- Signed: 03/12/24 19:03 EDTAmbulatory Visit Summaryon [id number] Visit Summary YANETH DENNIS :2000 Visit Date:03/12/2024 Ambulatory Visit Instructions Your Diagnosis Inattention Right groin pain Smoker BMI 32.0-32.9,adult Obesity due to excess calories Your Care Team Attending Physician - Bianka WOODS CNP Primary Care Physician - Bianka WOODS CNP This Is Your Medications List Contact prescribing physician if questions or concerns escitalopram (Lexapro 20 mg Tab) escitalopram (escitalopram 10 mg Tab) ethinyl estradiol-norethindrone (Junel Fe 10/07 oral tablet) hydrOXYzine (hydrOXYzine hydrochloride 25 mg Tab) tizanidine (tiZANidine 4 mg Tab) Procedures Performed Tonsillectomy, tubes in ears. Discharge Vitals Heart Rate (Peripheral) 60 Blood Pressure 115/73 Height 172.7 cm Height 68 in Weight 98.2 kg Weight 216.04 lb BMI 32.93 What to do next Scheduled Follow-Up Appointments 2023 6:30 PM EDT With: Where: [facility] [place] [facility] Monday 2:00 PM EDT With: Jacey Colvin Where: [facility] [place] Monday 3:00 PM EDT With: Jacey Colvin Where: [facility] NPCNormCommunity Regional Medical CenterPatient Educationon [id number] EducationGastroenterology Obesity, Adult Obesity is having too much body fat. Being obese means that your weight is more than what is healthy for you. BMI (body mass index) is a number that explains how much body fat you have. If you have a BMI of 30or more, you are obese. Obesity can cause serious health problems, such as: ? Stroke. ? Coronary artery disease (CAD). ? Type 2 diabetes. ? Some types of cancer. ? High blood pressure (hypertension). ? High cholesterol. ? Gallbladder stones. Obesity can also contribute to: ? Osteoarthritis. ? Sleep apnea. ? Infertility problems. What are the causes? ? Eating meals each day that are high in calories, sugar, and fat. ? Drinking a lot of drinks that have sugar in them. ? Being born with genes that may make you more likely to become obese. ? Having a medical condition that causes obesity. ? Taking certain medicines. ? Sitting a lot (having a sedentary lifestyle). ? Not getting enough sleep. What increases the risk? ? Having a family history of obesity. ? Living in an area with limited access to: ? [place], recreation centers, or sidewalks. ? Healthy food choices, such as grocery stores and [employer]. What are the signs or symptoms? The main sign is having too much body fat. How is this treated? Treatment for this condition often includes changing your lifestyle. Treatment may include: ? Changing your diet. This may include making a healthy meal plan. ? Exercise. This may include activity that causes your heart to beat faster (aerobic exercise) and strength training. Work with your doctor to design a program that works for you. ? Medicine to help you lose weight. This may be used if you are not able to lose one pound a week after 6 weeks of healthy eating and more exercise. ? Treating conditions that cause the obesity. ? Surgery. Options may include gastric banding and gastric bypass. This may be done if: ? Other treatments have not helped to improve your condition. ? You have a BMI of 40 or higher. ? You have life-threatening health problems related to obesity. Follow these instructions at home: Eating and drinking ? Follow advice from your doctor about what to eat and drink. Your doctor may tell you to: ? Limit fast food, sweets, and processed snack foods. ? Choose low-fat options. For example, choose low-fat milk instead of whole milk. ? Eat five or more servings of fruits or vegetables each day. ? Eat at home more often. This gives you more control over what you eat. ? Choose healthy foods when you eat out. ? Learn to read food labels. This will help you learn how much food is in one serving. ? Keep low-fat snacks available. ? Avoid drinks that have a lot of sugar in them. These include soda, fruit juice, iced tea with sugar, and flavored milk. ? Drink enough water to keep your pee (urine) pale yellow. ? Do not go on fad diets. Physical activity ? Exercise often, as told by your doctor. Most adults should get up to 150 minutes of moderate-intensity exercise every week.Ask your doctor: ? What types of exercise are safe for you. ? How often you should exercise. ? Warm up and stretch before being active. ? Do slow stretching after being active (cool down). ? Rest between times of being active. Lifestyle ? Work with your doctor and a food expert (dietitian) to set a weight-loss goal that is best for you. ? Limit your screen time. ? Find ways to reward yourself that do not involve food. ? Do not drink alcohol if: ? Your doctor tells you not to drink. ? You are , may be , or are planning to become . ? If you drink alcohol: ? Limit how much you have to: ? 0?1 drink a day for women. ? 0?2 drinks a day for men. ? Know how much alcohol is in your drink. In the [place] one drink equals one 12 oz bottle of beer (355 mL), one 5 oz glass of wine (148 mL), or one 1? oz glass of hard liquor (44 mL). General instructions ? Keep a weight-loss journal. This can help you keep track of: ? The food that you eat. ? How much exercise you get. ? Take nqmn-gps-ubicvky and prescription medicines only as told by your doctor. ? Take vitamins and supplements only as told by your doctor. ? Think about joining a support group. ? Pay attention to your mental health as obesity can lead to depression or self esteem issues. ? Keep all follow-up visits. Contact a doctor if: ? You cannot meet your weight-loss goal after you have changed your diet and lifestyle for 6 weeks. ? You are having trouble breathing. Summary ? Obesity is having too much body fat. ? Being obese means that your weight is more than what is healthy for you. ? Work with your doctor to set a weight-loss goal. ? Get regular exercise as told by your doctor. This information is not intended to replace advice given to you by your health care provider. Make sure you discuss any questions you have with yo (more content not included)...NormalThe [facility] Hospital At SouthwoodsC Urineon 02-15-2024 Bacteria identified Cx Nom (U)Microbiology PROCEDURE: Urine Culture [R1] SOURCE: U CleanCatch BODY SITE: COLLECTED DATE/TIME: 02/13/2024 13:10 EDT RECEIVED DATE/TIME: 02/13/2024 13:58 EDT START DATE/TIME: 02/13/2024 13:58 EDT FREE TEXT SOURCE: Max RAMOS, Jermain Santana PA-C, Jermain FINAL REPORTS Final Report [] Verified Date/Time: 02/15/2024 10:31 EDT <10,000 cfu/ml Mixed skin contaminants Performing Locations R1: This test was performed at: [facility], [address] [place] [address], [id number]- , , CrqvafLgzksaGood Samaritan HospitalComment on above:Performed By: #### [id number] ####[facility] [address] [place], [place] [address]N hCG Qualon [id number] HCG ( test) QlNegativeNormCommunity Regional Medical CenterComment on above:Performed By: #### [id number] #### [facility] [address] [place] [id number] 67-96-4525Fwhci gap [Moles/Vol]11 mmol/LNormal6-16[facility] SouthwoodsComment on above:Performed By: #### [id number] #### [facility] [address] [place] [address]Dyinpop [Mass/Vol]9.3 mg/dLNormal8.9-11.1FSelect Medical Specialty Hospital - YoungstownComment on above:Performed By: #### [id number] #### [facility] [address], [place] [address]Pcishksx [Moles/Vol]107 mmol/YCrdqsg659-636MxehjeThe Surgical Hospital At SouthwoodsComment on above:Performed By: #### [id number] #### [facility] [address], [place] [address]AP2 [Moles/Vol]24 mmol/WQadbpd08-57YpdojcThe Surgical Hospital At Southwoods Comment on above:Performed By: #### [id number] #### [facility] [address], [place] [address]Bzcgyegcod [Mass/Vol]0.7 mg/dLNormal0.5-1.3FSelect Medical Specialty Hospital - YoungstownComment on above:Performed By: #### [id number] #### [facility] [address], [place] [address]Iifpuoh [Mass/Vol]95 mg/nLLwblow43-415SuyvxvThe Surgical Hospital At SouthwoodsComment on above:Performed By: #### [id number] #### [facility] [address], [place] [address]Vmcihvvow [Moles/Vol]3.8 mmol/LNormal3.5-5.3FSelect Medical Specialty Hospital - YoungstownComment on above:Performed By: #### [id number] #### [facility] [address], [place] [address]Pkeeis [Moles/Vol]138 mmol/IYusysg278-612LzvitpThe Surgical Hospital At SouthwoodsComment on above:Performed By: #### [id number] #### [facility] [address], [place] [address]Vgkw nitrogen [Mass/Vol]7 mg/dLNormal5-21The [facility] SouthwoodsComment on above:Performed By: #### [id number] #### [facility] [address], [place] [address]Apom nitrogen/Creatinine [Mass ratio]10 No ZlfemUzvitr43-21 [facility] SouthwoodsComment on above:Performed By: #### [id number] #### [facility] [address] [place] [id number] w/ Auto Diffon 91-84-7928Ccqupkydm/100 WBC (Bld)0.7 %Normal 0.0-2.0The [facility] Hospital At SouthwoodsComment on above:Performed By: #### [id number] #### The [facility] [facility] [address] [place] [address] [id number]/Leukocytes Auto (Bld) [Pure # fraction]0.1 E9/LNormal 0.0-0.2FSelect Medical Specialty Hospital - YoungstownComment on above:Performed By: #### [id number] #### [facility] [address] [place] [address] [id number] (Bld) [#/Vol]0.1 E9/LNormal0.0-0.5FSelect Medical Specialty Hospital - YoungstownComment on above:Performed By: #### [id number] #### [facility] [address] [place] [address] 75052Twizkxzzyhu/100 WBC (Bld)1.8 %Normal0.0-8.0[facility]woodsComment on above:Performed By: #### [id number] #### [facility] [address] [place] [address] 76959Cuclbqiaeqt distribution width (RBC) [Ratio]13.6 %Normal 10.9-14.2FSelect Medical Specialty Hospital - YoungstownComment on above:Performed By: #### [id number] #### [facility] [address] [place] [address] 96075Mtzxelmiwp (Bld) [Volume fraction]41.0 %Wyhurm77.0-46.0[facility]woodsComment on above:Performed By: #### [id number] #### [facility] [address] [place] [address] 12797Quhmfamvrp (Bld) [Mass/Vol]13.7 g/gJFclrau35.0-16.0[facility]woodsComment on above:Performed By: #### [id number] #### [facility] [address] [place] [address] 75593Kevacxslwfj (Bld) [#/Vol]1.8 E9/LNormal1.0-4.0[facility]woodsComment on above:Performed By: #### [id number] #### [facility] [address] [place] [address] 15899Pjizvrsfvzg/100 WBC (Bld)22.7 %Wpevbf63.0-50.0[facility]woodsComment on above:Performed By: #### [id number] #### [facility] [address] [place] [address] 62707QEC (RBC) [Entitic mass]30.6 rsMefsgq17.0-34.0[facility]woodsComment on above:Performed By: #### [id number] #### [facility] [address] [place] [address] 24856KXMS (RBC) [Mass/Vol]33.5 g/vACfyfde94.4-36.0[facility]woodsComment on above:Performed By: #### [id number] #### [facility] [address] [place] [address] 23759FRY (RBC) [Entitic vol]91.1 oUJrfiaw21.0-100.0[facility]woodsComment on above:Performed By: #### [id number] #### [facility] [address] [place] [address] 20978Zltvyiehm (Bld) [#/Vol]0.6 E9/LNormal0.2-1.0[facility]woodsComment on above:Performed By: #### [id number] #### [facility] [address] [place] [address] 87664Kupfvwlwaei (Bld) [#/Vol]5.3 E9/LNormal2.0-7.5FSelect Medical Specialty Hospital - YoungstownComment on above:Performed By: #### [id number] #### [facility] [address] [place] [address] 91055Mahftkqqexk/100 WBC (Bld)67.5 %Dntezi19.0-75.0[facility]woodsComment on above:Performed By: #### [id number] #### [facility] [address], [place] [address]Wzsntsfg420.0 E9/SKupfua865.0-500.0[facility] Comment on above:Performed By: #### [id number] #### [facility] [address], [place] [address]Evieecyv mean volume (Bld) [Entitic vol]8.6 fLNormal6.4-10.8 [facility]Comment on above:Performed By: #### [id number] #### [facility] [address] [place] [address] 39310MDE (Bld) [#/Vol]4.5 E12/LNormal4.3-5.9[facility]woodsComment on above:Performed By: #### [id number] #### [facility] [address] [place] [address] 51661URR corrected for nucl RBC Auto (Bld) [#/Vol]7.9 E9/LNormal 4.0-11.0[facility]woodsComment on above:Performed By: #### [id number] #### [facility] [address] [place] [address] 63503KKHAMAMOXSlzznar By: SYSTEM SYSTEM on [id number] [Mass/Vol]4.3 g/dLNormal3.3 - 5.0 gm/dLRemisol ChemAlbumin/Globulin [Mass ratio] 1.3 {ratio}Normal1.1 - 2.2Remisol ChemALP [Catalytic activity/Vol]57 [iU]/d Ugnhbx25 - 98 Int._Unit/LRemisol ChemALT No additional P-5'-P [Catalytic activity/Vol]14 [iU]/dNormal6 - 46 Int._Unit/LRemisol ChemAnion gap [Moles/Vol] 11 mmol/LNormal6 - 16 mEq/LRemisol ChemAST [Catalytic activity/Vol]14 [iU]/d Normal5 - 43 Int._Unit/LRemisol ChemBilirubin [Mass/Vol]0.6 mg/dLNormal0.0 - 1.1 mg/dLRemisol ChemBilirubin.direct [Mass/Vol]0.1 mg/dLNormal0.0 - 0.4 mg/dL Remisol ChemBilirubin.indirect [Mass or moles/Vol]0.5 mg/dLNormal0.1 - 0.9 mg/dL Remisol ChemCalcium [Mass/Vol]9.3 mg/dLNormal8.9 - 11.1 mg/dLRemisol Chem Chloride [Moles/Vol]107 mmol/HKfqigk344 - 111 mmol/LRemisol ChemCO2 [Moles/Vol] 24 mmol/FNbfqfo23 - 31 mmol/LRemisol ChemCreatinine [Mass/Vol]0.7 mg/dLNormal0.5 - 1.3 mg/dLRemisol VayruQEI764 mL/min/1.73 h5Hcyilb>=59mL/min/1.73 x6Vsgehdr ChemGlobulin (S) [Mass/Vol]3.2 g/dLNormal1.4 - 4.0 gm/dLRemisol ChemGlucose [Mass/Vol]95 mg/sQMfnujw34 - 199 mg/dLRemisol ChemLipase [Catalytic activity/Vol]21 U/TDadtdc92 - 58 unit/LRemisol ChemPotassium [Moles/Vol]3.8 mmol/LNormal3.5 - 5.3 mmol/LRemisol ChemProtein [Mass/Vol]7.5 g/dLNormal6.0 - 7.8 gm/dLRemisol ChemSodium [Moles/Vol]138 mmol/WDowopi683 - 145 mmol/LRemisol ChemUrea nitrogen [Mass/Vol]7 mg/dLNormal5 - 21 mg/dLRemisol ChemUrea nitrogen/Creatinine [Mass ratio]10 mg/tbVflvpc13 - 20Remisol ChemCT Abdomen/Pelvis w/o Contraston [id number] Abdomen/Pelvis w/o ContrastExam Date/Time: 02/13/2024 13:57 EDT Reason for Exam: Abdominal pain, acute, nonlocalized;Other (please specify) Report IMPRESSION: No hydronephrosis or nephrolithiasis. EXAMINATION: CT Abdomen/Pelvis w/o Contrast HISTORY: Abdominal pain, acute, nonlocalized. Right flank pain. Hematuria. TECHNIQUE: Non-IV contrast imaging of the abdomen and pelvis was performed using standard technique, scanning from just above the dome of the diaphragm to the symphysis pubis. Unenhanced imaging is limited for the evaluation of some intra-abdominal and pelvic pathology. Unless otherwise stated, incidental findings in this report do not require further routine follow-up imaging. All CT scans at this facility use dose modulation, iterative reconstruction, and/or weight based dosing when appropriate to reduce radiation dose to as low as reasonably achievable. COMPARISON: None. RESULT: Abdomen / Pelvis: Liver: Visualized liver unremarkable. Biliary: Gallbladder unremarkable. Pancreas: Unremarkable. Spleen: Visualized spleen unremarkable. Adrenals: No mass. Kidneys and urinary tract: No urinary tract calculus or hydronephrosis. No suspicious lesions in the unenhanced kidneys. Bladder unremarkable. GI Tract: No bowel dilation. Normal appendix. Feces throughout the colon. Lymph Nodes: No lymphadenopathy. Mesentery/peritoneum/retroperitoneum: No ascites or mass. Report Vasculature: No abdominal aortic or iliac artery aneurysm. Pelvis: No significant free fluid. Bladder unremarkable. Small right adnexal cyst/follicle. Bones/Soft Tissues: No acute osseous findings. Partially imaged fusion hardware within the spine. Mild levoscoliosis lumbar spine. Lower thorax: Unremarkable. Ordering Provider: Jermain Santana FINAL REPORT Dictated: 02/13/2024 2:02 pm Edgar Lassiter MD Signed (Electronic Signature): 02/13/2024 2:02 pm Signed by: Edgar Lassiter MD Transcribed by: MESERET Technologist: WILDA Technical Comments Rectal Contrast Given? No Oral contrast amount in ml's: 0NoGood Samaritan HospitalConsent for Treatmenton [id number] for Treatment [id number] Clinic Medina HospitalDischarge Instructionson [id number] Instructions [id number] [facility] Clinical Summaryon [id number] Clinical Summary [address] [address] ED Clinical Summary Person Information Name: YANETH DENNIS [place] Age: 23 Years : 2000 Sex: Female Language: Senegalese PCP: Bianka WOODS CNP Marital Status: Single Visit Id: Visit Reason: Hematuria; Flank pain; RT ABD PAIN AND BLEEDING WHEN GOING TO BATHROOM Speciality: Acuity: 3 Enc Type: Emergency Med Service: Emergency Arrival: 02/13/2024 12:36:50 Discharge: 02/13/2024 15:19:35 LOS: 000 02:43 Checkin: 02/13/2024 12:36:50 Checkout: 02/13/2024 15:19:35 Dispo Type: Home (Routine DC) EVENTS: Event Name Event Status Request Date/Time Start Date/Time Complete Date/Time Arrive Complete 02/13/2024 12:36:50 02/13/2024 12:36:50 02/13/2024 12:36:50 Document Home Meds Request 02/13/2024 12:36:50 Triage Complete 02/13/2024 12:36:50 02/13/2024 12:50:55 02/13/2024 12:50:55 Registration Complete 02/13/2024 12:39:14 02/13/2024 12:39:14 02/13/2024 12:39:14 Reg Complete Request 02/13/2024 12:39:14 Reg Bed Request Complete 02/13/2024 12:39:14 02/13/2024 12:39:14 02/13/2024 12:39:14 Bed Assign Complete 02/13/2024 12:45:18 02/13/2024 12:45:18 02/13/2024 12:45:18 Dr Exam Complete 02/13/2024 12:45:18 02/13/2024 12:47:44 02/13/2024 12:47:44 RN Exam Request 02/13/2024 12:45:18 Registration Request 02/13/2024 12:47:44 Dr Exam Complete 02/13/2024 12:48:21 02/13/2024 12:48:21 02/13/2024 12:48:21 Meds Admin Complete 02/13/2024 12:57:56 02/13/2024 13:23:53 Pending Labs Complete 02/13/2024 12:57:56 02/13/2024 13:47:57 Lab Complete 02/13/2024 12:57:56 02/13/2024 13:34:57 CT Complete 02/13/2024 12:57:56 02/13/2024 13:48:21 02/13/2024 13:57:06 Pending Labs Complete 02/13/2024 13:16:05 02/13/2024 13:16:05 02/13/2024 13:34:57 Lab Complete 02/13/2024 13:16:05 02/13/2024 13:16:05 02/13/2024 13:34:57 Pending Labs Complete 02/13/2024 13:16:30 02/13/2024 13:16:30 02/13/2024 13:16:30 Pending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 artificial intelligence software. Documentation services were performed after the patient or guardian consented to allow [employer] experience to record this visit. MAYRA coding support specialist and provider reviewed before signing. MAYRA: Morena Ariasipulo/Pasted by: Carly Hernández Follow-up With When Contact Information Bianka WOODS CNP In 6 [address] [place] [address]- Additional Instructions: Patient Education Obesity, Adult, Iohw-en-Ggmw Problem List/Past Medical History Ongoing Anxiety disorder due to med (more content not included)...[facility] HospitalComment on above:Result Comment: Electronically Signed By: Bianka WOODS CNP\.br\Date and Time Signed: 11/17/23 08:38 EST\.br\Electronically Co- Signed By: Carly Hernández\.br\Date and Time Co-Signed: 11/16/23 16:30 EST Ambulatory Visit Summaryon [id number] Visit Summary YANETH DENNIS :2000 Visit Date:11/16/2023 Ambulatory Visit Instructions Your Diagnosis Anxiety disorder due to medical condition Moderate major depression Back pain with history of spinal surgery BMI 31.0-31.9,adult Your Care Team Attending Physician - Bianka WOODS CNP Primary Care Physician - Bianka WOODS CNP This Is Your Medications List escitalopram (Lexapro 20 mg Tab) escitalopram (escitalopram 10 mg Tab) tizanidine (tiZANidine 4 mg Tab) Contact prescribing physician if questions or concerns ethinyl estradiol-norethindrone (10/07 oral tablet) hydrOXYzine (hydrOXYzine hydrochloride 25 mg Tab) [Image Removed: STOP]Stop taking these medications diclofenac (diclofenac sodium 75 mg Oral EC Tab) Procedures Performed Tonsillectomy, tubes in ears. Discharge Vitals Heart Rate (Peripheral) 55 Respiratory Rate 16 Blood Pressure 116/74 Height 172.7 cm Height 68 in Weight 95.2 kg Weight 209.44 lb BMI 31.92 What to do next You Need to Schedule the Following Appointments Follow Up with Bianka WOODS CNP When: In 6 months Where: [address] [place] [address]- Medications What How Much When Instructions New tizanidine (tiZANidine 4 mg Tab) 1 Tablets By Mouth Once a day (in the evening) Refills: 2 Pickup at [facility]/pharmacy #[id number] Unchanged escitalopram (escitalopram 10 mg Tab) 1 Tablets By Mouth Every day Take with 20mg tab fortotal daily dose of 30mg Pickup at [facility]/pharmacy #[id number] Unchanged escitalopram (Lexapro 20 mg Tab) 1 Tablets By Mouth Every day Take with 10mg tab for total daily dose of 30mg [id number] Unchanged ethinyl estradiol-norethindrone ( oral tablet) TAKE 1 TABLET BY MOUTH EVERYDAY Contact prescribing physician if questions or concerns Unchanged hydrOXYzine (hydrOXYzine hydrochloride 25 mg Tab) 1 Tablets By Mouth 4 times a day as needed for for anxiety Contact prescribing physician if questions or concerns [id number] [address] [place], [place] [phone] What How Much When Comments Stop Taking diclofenac (diclofenac sodium 75 mg Oral EC Tab) 1 Tablets By Mouth 2 times a day Allergies Augmentin (Vomiting) Problems Ongoing - Any problem that you are currently receiving treatment for. Anxiety disorder due to medical condition Asthma Back pain with history of spinal surgery Insulin resistance Moderate major depression Wart Historical - Any problem that you are no longer receiving treatment for. Ear infections Patient Survey You may receive a survey via text or e-mail asking about your office visit. Please share your experience with us by completing your survey. We appreciate your feedback and thank you for choosing us for your care. Education Materials Obesity, Adult Obesity is having too much body fat. Being obese means that your weight is more than what is healthy for you. BMI (body mass index) is a number that explains how much body fat you have. If you have a BMI of 30or more, you are obese. Obesity can cause serious health problems, such as: ? Stroke. ? Coronary artery disease (CAD). ? Type 2 diabetes. ? Some types of cancer. ? High blood pressure (hypertension). ? High cholesterol. ? Gallbladder stones. Obesity can also contribute to: ? Osteoarthritis. ? Sleep apnea. ? Infertility problems. What are the causes? ? Eating meals each day that are high in calories, sugar, and fat. ? Drinking a lot of drinks that have sugar in them. ? Being born with genes that may make you more likely to become obese. ? Having a medical condition that causes obesity. ? Taking certain medicines. ? Sitting a lot (having a sedentary lifestyle). ? Not getting enough sleep. What increases the risk? ? Having a family history of obesity. ? Living in an area with limited access to: ? [place], recreation centers, or sidewalks. ? Healthy food choices, such as grocery stores and [employer]. What are the signs or symptoms? The main sign is having too much body fat. How is this treated? Treatment for this condition often includes changing your lifestyle. Treatment may include: ? Changing your diet. This may include making a healthy meal plan. ? Exercise. This may include activity that causes your heart to beat faster (aerobic exercise) and strength training. Work with your doctor to design a program that works for you. ? Medicine to help you lose weight. This may be used if you are not able to lose one pound a week after 6 weeks of healthy eating and more exercise. ? Treating conditions that cause the obesity. ? Surgery. Options may include gastric banding and gastric bypass. This may be done if: ? Other treatments have not helped to improve your condition. ? You have a BMI of 40 (more content not included)...[facility] Educationon [phone] EducationGastroenterology Obesity, Adult Obesity is having too much body fat. Being obese means that your weight is more than what is healthy for you. BMI (body mass index) is a number that explains how much body fat you have. If you have a BMI of 30or more, you are obese. Obesity can cause serious health problems, such as: ? Stroke. ? Coronary artery disease (CAD). ? Type 2 diabetes. ? Some types of cancer. ? High blood pressure (hypertension). ? High cholesterol. ? Gallbladder stones. Obesity can also contribute to: ? Osteoarthritis. ? Sleep apnea. ? Infertility problems. What are the causes? ? Eating meals each day that are high in calories, sugar, and fat. ? Drinking a lot of drinks that have sugar in them. ? Being born with genes that may make you more likely to become obese. ? Having a medical condition that causes obesity. ? Taking certain medicines. ? Sitting a lot (having a sedentary lifestyle). ? Not getting enough sleep. What increases the risk? ? Having a family history of obesity. ? Living in an area with limited access to: ? [place], recreation centers, or sidewalks. ? Healthy food choices, such as grocery stores and [employer]. What are the signs or symptoms? The main sign is having too much body fat. How is this treated? Treatment for this condition often includes changing your lifestyle. Treatment may include: ? Changing your diet. This may include making a healthy meal plan. ? Exercise. This may include activity that causes your heart to beat faster (aerobic exercise) and strength training. Work with your doctor to design a program that works for you. ? Medicine to help you lose weight. This may be used if you are not able to lose one pound a week after 6 weeks of healthy eating and more exercise. ? Treating conditions that cause the obesity. ? Surgery. Options may include gastric banding and gastric bypass. This may be done if: ? Other treatments have not helped to improve your condition. ? You have a BMI of 40 or higher. ? You have life-threatening health problems related to obesity. Follow these instructions at home: Eating and drinking ? Follow advice from your doctor about what to eat and drink. Your doctor may tell you to: ? Limit fast food, sweets, and processed snack foods. ? Choose low-fat options. For example, choose low-fat milk instead of whole milk. ? Eat five or more servings of fruits or vegetables each day. ? Eat at home more often. This gives you more control over what you eat. ? Choose healthy foods when you eat out. ? Learn to read food labels. This will help you learn how much food is in one serving. ? Keep low-fat snacks available. ? Avoid drinks that have a lot of sugar in them. These include soda, fruit juice, iced tea with sugar, and flavored milk. ? Drink enough water to keep your pee (urine) pale yellow. ? Do not go on fad diets. Physical activity ? Exercise often, as told by your doctor. Most adults should get up to 150 minutes of moderate-intensity exercise every week.Ask your doctor: ? What types of exercise are safe for you. ? How often you should exercise. ? Warm up and stretch before being active. ? Do slow stretching after being active (cool down). ? Rest between times of being active. Lifestyle ? Work with your doctor and a food expert (dietitian) to set a weight-loss goal that is best for you. ? Limit your screen time. ? Find ways to reward yourself that do not involve food. ? Do not drink alcohol if: ? Your doctor tells you not to drink. ? You are , may be , or are planning to become . ? If you drink alcohol: ? Limit how much you have to: ? 0?1 drink a day for women. ? 0?2 drinks a day for men. ? Know how much alcohol is in your drink. In the [place] one drink equals one 12 oz bottle of beer (355 mL), one 5 oz glass of wine (148 mL), or one 1? oz glass of hard liquor (44 mL). General instructions ? Keep a weight-loss journal. This can help you keep track of: ? The food that you eat. ? How much exercise you get. ? Take ntgu-vod-leanqpf and prescription medicines only as told by your doctor. ? Take vitamins and supplements only as told by your doctor. ? Think about joining a support group. ? Pay attention to your mental health as obesity can lead to depression or self esteem issues. ? Keep all follow-up visits. Contact a doctor if: ? You cannot meet your weight-loss goal after you have changed your diet and lifestyle for 6 weeks. ? You are having trouble breathing. Summary ? Obesity is having too much body fat. ? Being obese means that your weight is more than what is healthy for you. ? Work with your doctor to set a weight-loss goal. ? Get regular exercise as told by your doctor. This information is not intended to replace advice given to you by your health care provider. Make sure you discuss any questions you have with yo (more content not included)...[facility] Medicine Office/Clinic Noteon [phone] Medicine Office/Clinic NoteChief Complaint Depression HPI Staff Pt is here today for a medication refill. Will need Lexapro. She states she is doing well. She has no concerns. She had her back surgery in Jun, currently still doing PT. Pap - Has never had one. BMP - 10.30.23 Lipids - 1.23.23 Total - 135 Trigs - 89 HDL - 53 LDL - 64 The standard range for ages 18 and older is >=18.5 and < 25 kg/m2. Your BMI today was above this range, this falls in the overweight to obese category and there are medical benefits to weight loss. We can offer counselling, referral, and/or medical support in addressing this problem. Your BMIand weight management will be followed at subsequent visits. History of Present Illness The patient or their guardian verbally consented to allow Aaron Brown to record this visit. Yaneth Dennis is a 22-year-old female accompanied by an adult male who presents today for a medication refill. She continues Lexapro for major depression and anxiety. She did undergo spine surgery back in 06/2023 for revision of scoliosis surgery that she had years ago. She is currently in physical therapy for that. It does look like she had some urinary retention postop. She saw urology in 07/2023 and was scheduled for some testing, but it does not look like she had done it. The patient states that she is feeling good, and her surgery went well. Her bender catheter has beenremoved. She is now capable of independent urination post removal of the bender catheter. She also mentions a follow-up visit to the urology department shortly after the removal of her catheter. The patient reports satisfactory progress in therapy, actively identifying her capabilities and limitations. She reports certain exercises are challenging due to an unusual sensation causing her legsto weaken. She states the therapeutic approach is focused on identifying and enhancing exercises she can perform to strengthen her overall condition. The patient reports a positive mood, and denying feelings of depression, hopelessness, or negative thoughts. She expresses that despite previous surgery, her anxiety levels remain unchanged. She verbalizes she had hoped for an improvement in her anxiety post-surgery, but this was not the case. She confirms that Lexapro provides some relief. On 10/04/2023, she took Lexapro prior to her physical therapy appointment due to anticipated discomfort from back touch. She continues to struggle with people touching her back, identifying it as a significant anxiety trigger. She consents to increase her Lexapro dosage to 30 mg. The patient states that when she was in the hospital for a shorter time, they were not giving her medications like they were supposed to. She then starts going through a withdrawal from all her medications. She had to get taken out to the hospital because she was shaky. She states that upon returning home, she stood up all by herself. Her chief safety officer adds during the following day, when they arrivedat home, she slept the entire day. She reports experiencing the on a subsequent day, when she woke and everyone is sleeping, she was hallucinating thinking his younger brother was awake and instructing him to sleep, despite him being asleep. Physical Exam Vitals & Measurements HR: 73(Peripheral) BP: 120/78 SpO2: 98% HT: 68 in HT: 172.72 cm WT: 91.0 kg WT: 200.2 lb BMI: 30.5 General: Well developed, well nourished, in no acute distress. Lungs: Normal respiratory effort and clear to auscultation. Cardio: Regular rate and rhythm, normal S1 and S2, no murmur, no rub. Neurologic: Grossly normal. Lymph Nodes: No cervical adenopathy, nodes normal. Mental Status: Alert and oriented x3. Normal mood and affect. Assessment/Plan 1. Moderate major depression (F32.1: Major depressive disorder, single episode, moderate) Well controlled on Lexapro. Continue this as needed for counseling. 2. 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 A lot is pending social security case. We will increase Lexapro to the max of30 mg. Follow up in 6 weeks. If not effective, we discussed adding medication versus weaning off and trying a new one. She is leaning towards adding an adjunct. We will wait and reassess at the follow-up. She is not interested in counseling. 3. BMI 30.0-30.9,adult (Z68.30: Body mass index [BMI] 30.0-30.9, adult) Discussed health risks of obesity. Encourage healthy, balanced diet low in sugar, fat, carbs. Encouraged exercise regimen. Portions of this record may have been created with voice recognition artificial intelligence software, specifically [employer], [employer] and or [employer]. Substitutions may have occurred due to the inherent limitations of voice recognition and artificial intelligence software. Documentation services were performed after patient or guardian consented to allow Aaron Graves magali to record this visit. MAYRA Document (more content not included)...[facility] HospitalComment on above:Result Comment: Electronically Signed By: Bianka WOODS CNP\.br\Date and Time Signed: 10/09/23 12:43 EST\.br\Electronically Co-Signed By: Carly Hernández\.br\Date and Time Co-Signed: 10/05/23 16:46 ESTAmbulatory Visit Summaryon 10-05-2023 Ambulatory Visit Summary YANETH DENNIS :2000 Visit Date:10/05/2023 Ambulatory Visit Instructions Your Diagnosis Moderate major depression Anxiety disorder due to medical condition BMI 30.0-30.9,adult Your Care Team Attending Physician - Bianka WOODS CNP Primary Care Physician - Bianka WOODS CNP This Is Your Medications List escitalopram (Lexapro 20 mg Tab) escitalopram (escitalopram 10 mg Tab) Contact prescribing physician if questions or concerns diclofenac (diclofenac sodium 75 mg Oral EC Tab) ethinyl estradiol-norethindrone ( Fe 10/07 oral tablet) hydrOXYzine (hydrOXYzine hydrochloride 25 mg Tab) [Image Removed: STOP]Stop taking these medications acetaminophen-oxycodone (acetaminophen-oxycodone 325 mg-5 mg Tab) ethinyl estradiol-norethindrone (10/07 oral tablet) nitrofurantoin (nitrofurantoin macrocrystals-monohydrate 100 mg Cap) oxycodone (oxyCODONE 5 mg Tab) Procedures Performed Tonsillectomy, tubes in ears. Discharge Vitals Heart Rate (Peripheral) 73 Blood Pressure 120/78 Height 172.72 cm Height 68 in Weight 91.0 kg Weight 200.2 lb BMI 30.5 What to do next Scheduled Follow-Up Appointments 2023 2:40 PM EST With: Bianka WOODS CNP [facility] 2Von [id number] Clinic Ambulatory Visit Summaryon 12-44-4521Hrvqophyyk Visit Summary YANETH DENNIS :2000 Visit Date:07/20/2023 Ambulatory Visit Instructions Your Diagnosis Urinary retention Your Care Team Attending Physician - Clare Vaqzuez MD Primary Care Physician - Bianka WOODS CNP This Is Your Medications List Contact prescribing physician if questions or concerns acetaminophen-oxycodone (acetaminophen-oxycodone 325 mg-5 mg Tab) cyclobenzaprine (cyclobenzaprine 10 mg Tab) diclofenac (diclofenac sodium 75 mg Oral EC Tab) escitalopram (Lexapro 20 mg Tab) escitalopram (Lexapro 20 mg Tab) ethinyl estradiol-norethindrone (10/07 oral tablet) ethinyl estradiol-norethindrone (10/07 oral tablet) hydrOXYzine (hydrOXYzine hydrochloride 25 mg Tab) lorazepam (Ativan 1 mg Tab) meloxicam (meloxicam 15 mg Tab) methocarbamol (methocarbamol 750 mg Tab) nitrofurantoin (nitrofurantoin macrocrystals-monohydrate 100 mg Cap) oxycodone (oxyCODONE 5 mg Tab) Procedures Performed Tonsillectomy, tubes in ears. Discharge Vitals Heart Rate (Peripheral) 74 Blood Pressure 144/102 Height 172.72 cm Height 68 in Weight 95.5 kg Weight 210.1 lb BMI 32.01 What to do next Scheduled Follow-Up Appointments Monday 3:30 PM EST With: Clare Vazquez MD [facility] 18-55-5587Bgjfj [id number]#1.00[facility] CenterOperative Reporton [id number] Report [id number]#1.00[facility] CenterPatient Educationon 60-76-5742Cjdrjze EducationObstetrics and Gynecology Acute Urinary Retention, Female Acute urinary retention is when a person cannot pee (urinate) at all, or can only pee a little. This can come on all of a sudden. If it is not treated, it can lead to kidney problems or other seriousproblems. What are the causes? ? A problem with the tube that drains the bladder (urethra). ? Problems with the nerves in the bladder. ? The organs in the area between your hip bones (pelvis) slipping out of place (prolapse). ? Tumors. ? The of a baby through the vagina. ? An infection. ? Having trouble pooping (constipation). ? Certain medicines. What increases the risk? Women over age 50 are more at risk. Other conditions also can increase risk. These include: ? Diseases, such as multiple sclerosis. ? Injury to the spinal cord. ? Diabetes. ? A condition that affects the way the brain works, such as dementia. ? Holding back urine due to trauma or because you do not want to use the bathroom. ? History of not being able to pee or peeing too little. ? Having had surgery in the area between your hip bones. What are the signs or symptoms? ? Trouble peeing. ? Pain in the lower belly. How is this treated? Treatment for this condition may include: ? Medicines. ? Placing a thin, germ-free tube (catheter) into the bladder to drain pee out of the body. ? Therapy to treat mental health conditions. ? Treatment for conditions that may cause this. If needed, you may be treated in the hospital for kidney problems or to manage other problems. Follow these instructions at home: Medicines ? Take tbmk-ggt-ugwngih and prescription medicines only as told by your doctor. Ask your doctor what medicines you should stay away from. ? If you were given an antibiotic medicine, take it as told by your doctor. Do not stop taking it even if you start to feel better. General instructions ? Do not smoke or use any products that contain nicotine or tobacco. If you need help quitting, askyour doctor. ? Drink enough fluid to keep your pee pale yellow. ? If you were sent home with a tube that drains the bladder, take care of it as told by your doctor. ? Watch for changes in your symptoms. Tell your doctor about them. ? If told, keep track of changes in your blood pressure at home. Tell your doctor about them. ? Keep all follow-up visits. Contact a doctor if: ? You have spasms in your bladder that you cannot stop. ? You leak pee when you have spasms. Get help right away if: ? You have chills or a fever. ? You have blood in your pee. ? You have a tube that drains pee from the bladder and these things happen: ? The tube stops draining pee. ? The tube falls out. Summary ? Acute urinary retention is when you cannot pee at all or you pee too little. ? If this is not treated, it can cause kidney problems or other serious problems. ? If you were sent home with a tube (catheter) that drains pee from the bladder, take care of it astold by your doctor. ? Watch for changes in your symptoms. Tell your doctor about them. This information is not intended to replace advice given to you by your health care provider. Make sure you discuss any questions you have with your health care provider. Document Revised: 05/26/2021 Document Reviewed: 05/26/2021 [employer] Patient Education ? 2022 [employer].[facility] Screenson [id number] [facility] HospitalUrology Office/Clinic Noteon 89-52-1869Bdhslwo Office/Clinic NoteChief Complaint new patient HPI Staff 22 year old female new patient here for urinary retention after spine surgery for scoliosis patient states she has had spine surgery's in the past, and has had no issues with urinating after having a catheter has failed 3 voiding trials with this catheter , denies any issues urinating prior to surgery. History of Present Illness Tests reviewed: Reviewed [facility] op note and ER records. I have reviewed the previous health record information and history for this patient from external provider. I have reviewed and verified the staff HPI to be accurate for this encounter. There have been no associated fever, chills, flank pain, or blood in the urine. Denies any urinary infections. Review of Systems ROS - Provider Constitutional: denies weight loss, denies hot flashes. Eyes: denies eye problems. Gastrointestinal: denies nausea, denies vomiting. Cardiovascular: denies chest pain or angina. Integumentary: no dryness Musculoskeletal: denies musculoskeletal symptoms. ENMT: denies otolaryngeal symptoms. Respiratory: no shortness of breath. Heme/Lymph: denies easy bleeding tendency, denies easy bruising tendency. Psychiatric: no confusion, no anxiety. Genitourinary: See HPI. Physical Exam Vitals & Measurements HR: 74(Peripheral) BP: 144/102 HT: 68 in HT: 172.72 cm WT: 95.5 kg WT: 210.1 lb BMI: 32.01 General Appearance: alert , no acute distress, well nourished, well developed female. Head: normocephalic . Eyes: normal orbit and globe. ENMT: normal examination of external ears. Chest: symmetric chest rise, respirations non labored . Cardiovascular: regular rate and rhythm. Abdomen: soft , non distended, no tenderness Genitourinary: bladder nonpalpable, no flank tenderness. Skin: warm, dry, no bruising. Psychiatric: cooperative, affect appropriate for age, normal judgement, euthymic mood. Assessment/Plan 22 yo female new to our office due to recent UR s/p spinal surgery. Pt here with son and mother BBS 6 Portions of this record may have been created with voice recognition artificial intelligence software, specifically [employer], [employer] and or [employer]. Substitutions may have occurred due to the inherent limitations of voice recognition and artificial intelligence software. 1. Urinary retention (R33.9: Retention of urine, unspecified) S/p exploration and revision of posterior spinal fusion T2-L3, hardware removal posterior spinal hardware, T2-L3, posterior spinal instrumentation, nonsegmental, T2-L3 at [facility] with Dr. Sumeet De La Cruz 07/11/23 -Dx w/ scoliosis Pt presented to [facility] ER 07/17/23 with bender catheter from surgery w/ chills and sweats. No documented fevers. Dx'd with hypokalemia. Pt states she has failed three voiding trials. Per [facility] note, nursing staff was CIC pt 1x during thenight while she was inpatient. Bender catheter had to be replaced. Denies issues with urination prior to surgery. Explained to pt urinary retention could be a part of the healing process. Admits to tingling in herlegs, states she had it prior to surgery and it has remained the same. Pt states she had her first BM yesterday since having surgery. Discussed options including fill and pull today which require catheter being replaced or CIC if sheis unable to void. Risk/benefit discussed. No further testing unless UR is not resolved after 3-6 months. Fill and pull today - 250 ml in and pt voided a little under 250 ml -Pt to think about replacing indwelling bender vs CIC if needed in the future -Avoid straining with urination -Timed voids -Bowel regimen given narcotics -Follow up in 1 month with PVR I spent 45 minutes today with the patient: reviewing tests in preparation to see and discuss them with the patient, obtaining and reviewing external separately obtained history, documenting clinical information in the electronic health records, and care coordination. Time was spent performing a medical exam and evaluation, counseling and educating the patient/family, in caring for the patient. Follow-up With When Contact Information Clare Vazquez MD, URL, URO Additional Instructions: 1 mos w/ PVR Patient Education Acute Urinary Retention, Female, Uldp-cl-Swbw I, Uyen Ugalde, personally scribed for Dr. Vazquez on 07/20/2023 09:35:17. . Documentation recorded by the scribe, Ching Ugalde, accurately reflects the services(s) I performed and decisions made by me. Authenticated by Dr. Vazquez on 07/20/2023 10:01:23. Problem List/Past Medical History Ongoing Anxiety disorder due to medical condition Asthma Back pain with history of spinal surgery Insulin resistance Moderate major depression Rebound tenderness RLQ abdominal pain Urinary retention Wart Historical Ear infections Procedure/Surgical History Tonsillectomy, tubes in ears. Medications (more content not included)...[facility] Comment on above:Result Comment: Electronically Signed By: Clare Vazquez MD\.br\Date and Time Signed: 07/20/23 10:01EDT\.br\Electronically Co-Signed By: Uyen Ugalde\.br\Date and Time Co-Signed: 07/20/23 09:35 EDT\.br\Electronically Co-Signed By: Uyen Ugalde.br\Date and Time Co- Signed: 07/20/23 09:49 EDTAdmission Noteon 34-79-8013Ansjcjrsx Note [id number]#1.00TIFFNormalThe Surgical Hospital At SouthwoodsAuto Diffon 17-58-5041Szxejiffe/100 WBC (Bld)0.4 %Normal0.0-2.0The [facility] Hospital At SouthwoodsComment on above:Order Comment: Order Added by Discern Expert.Performed By: #### [id number], 9109621, 0472147, [id number] ####[address] [address]Hvgkrlaud/Leukocytes Auto (Bld) [Pure # fraction]0.0 E9/LNormal0.0-0.2FSelect Medical Specialty Hospital [facility] Comment on above:Order Comment: Order Added by Discern Expert.Performed By: #### 9842615, 5495992, 1599814, [id number] ####[address] [address]Roizwqnpdqd/100 WBC (Bld)2.9 %Normal 0.0-8.0The [facility] Hospital At SouthwoodsComment on above:Order Comment: Order Added by Discern Expert.Performed By: #### 8863622, 7530445, 2932984, 45952231 ####[address] [address] Eosinophils/Leukocytes Auto (Bld) [Pure # fraction]0.2 E9/LNormal0.0-0.5FSelect Medical Specialty Hospital - YoungstownComment on above:Order Comment: Order Added by Discern Expert.Performed By: #### [id number], 3162310, 0080850, 36479451 ####[address] [address]Cqhttftopev/100 WBC (Bld)21.0 %Nvfncx16.0-50.0The [facility] Hospital At SouthwoodsComment on above:Order Comment: Order Added by Discern Expert.Performed By: #### 9870156, 6422506, 5130079, 34910096 ####[address] [address]Kddbjutakrf/Leukocytes Auto (Bld) [Pure # fraction]1.7 E9/L Normal1.0-4.0The [facility] Hospital At SouthwoodsComment on above:Order Comment: Order Added by Discern Expert.Performed By: #### 6321927, 6437339, 3300502, 45634836 ####[address] [address] Monocytes/100 WBC (Bld)8.2 %Normal4.0-14.0The [facility] Hospital At SouthwoodsComment on above:Order Comment: Order Added by Discern Expert.Performed By: #### 6742859, 5856306, 1846311, 65712781 ####[address] [address]Varawhzjo/Leukocytes Auto (Bld) [Pure # fraction] 0.7 E9/LNormal0.2-1.0[facility] Hospital At SouthwoodsComment on above:Order Comment: Order Added by Discern Expert.Performed By: #### 1769035, 6848220, 5155092, 00423488 ####[address] [address]Ahbkvtzloqf/100 WBC (Bld)67.5 %Nnwyot99.0-75.0[facility] Comment on above:Order Comment: Order Added by Discern Expert.Performed By: #### 8450909, 8392971, 5378706, 86002241 ####[address] [address]Iyyvuqsejmz/Leukocytes Auto (Bld) [Pure # fraction]5.6 E9/LNormal2.0-7.5FSelect Medical Specialty Hospital - YoungstownComment on above:Order Comment: Order Added by Discern Expert.Performed By: #### 4183609, 6653232, 4658921, 59123447 ####[address] [address]OJIlj 42-51-4055Ufbpnoilhu [Mass/Vol]0.6 mg/dL Normal0.5-1.3[facility] Medical CenterComment on above:Performed By: #### 2776381, 6169082, 1991240, 45349419 ####[facility] [address] AveNorc[address], [place] [address]Mglf nitrogen [Mass/Vol]6 mg/dLNormal 5-21The [facility] SouthwoodsComment on above:Performed By: #### 1495696, 3655885, 9003632, 61349729 ####[facility] [address]nycebdsil[address] AveNst[address] vincent's medical centerkPREMIUM, [place] [address]Fcyr nitrogen/Creatinine [Mass ratio]10 No Units Umabqp87-33MfjjhjThe Surgical Hospital At SouthwoodsComment on above:Performed By: #### 5076152, 9719382, 8217589, 18618722 ####[place] [address] AveNorcanton-p[place] hospit[place], [place] [address]Ovrlj gap [Moles/Vol]8 mmol/LNormal 6-16The [facility] Hospital At SouthwoodsComment on above:Performed By: #### 7618472, 9485799, 8040481, 80431911 ####[facility] [address]rgiemwer[address] AveNst[address] vincent's medical centerk, [place] [address]Dmxabnw [Mass/Vol]8.8 mg/dLLow8.9-11.1FSelect Medical Specialty Hospital - YoungstownComment on above:Performed By: #### 0590513, 0858691, 2782595, 23446523 ####[facility] Mcylpdzdab[address] AveNst[address] vincent's medical centerk, [place] [address]Qmriplxg [Moles/Vol]104 mmol/ZObjkub947-672IcblwhThe Surgical Hospital At Southwoods Comment on above:Performed By: #### 7862124, 5470838, 3079549, 09841805 ####[facility] Uelkvmveek[address] AveNorcanton-potsdam hospit[place], [place] [address]JV1 [Moles/Vol]27 mmol/PQoedjz70-91WgdtovThe Surgical Hospital At SouthwoodsComment on above: Performed By: #### 5883779, 6574114, 4075199, 80412974 ####[facility] Hztxapknnf7[address] Pine AveNorSeattle, [place] [address]Olproyr [Mass/Vol]118 mg/dL Ddhbjb10-923PbytukThe Surgical Hospital At SouthwoodsComment on above:Result Comment: If this glucose result represents a fasting glucose, interpretation should refer tothe following reference range: 55-99 mg/dLPerformed By: #### 4791218, 2524429, 3150827, 05389210 ####[address] [address]Pqvhypxsp [Moles/Vol]3.1 mmol/LLow3.5-5.3FSelect Medical Specialty Hospital - YoungstownComment on above:Performed By: #### 7821090, 3989896, 7823294, 57465337 ####[address] [address]Cugjmo [Moles/Vol]136 mmol/PWjdeaq472-086KhclwyThe Surgical Hospital At SouthwoodsComment on above:Performed By: #### 0943910, 8969429, 5215321, 65466105 ####[address] [address]ZRN w/ Auto Diff on 81-84-6378Tjrgtzwqztt distribution width (RBC) [Ratio]14.0 %Lbdvcw03.9-14.2 The [facility] Hospital At SouthwoodsComment on above:Performed By: #### 1475008, 2830424, 4998754, 84487065 ####[address] [address]Vagneidzlt (Bld) [Volume fraction]27.7 %Low34.0-46.0The [facility] Hospital At SouthwoodsComment on above:Performed By: #### 7278311, 8334606, 8740503, 63335618 ####[address] [address]Ekddwujuvl (Bld) [Mass/Vol]9.2 g/dLLow12.0-16.0The [facility] Hospital At SouthwoodsComment on above:Performed By: #### 6681671, 4450096, 1435648, 22644038 ####[address] [address]EJS (RBC) [Entitic mass]30.0 gtNjfpms28.0-34.0[facility] Comment on above:Performed By: #### 3745440, 4067181, 1828731, 31099738 ####[address] [address]XOWN (RBC) [Mass/Vol]33.3 g/qNHewser23.4-36.0The [facility] Hospital At SouthwoodsComment on above:Performed By: #### 7371242, 8730528, 2346294, 22447131 ####[address] [address]BZF (RBC) [Entitic vol]90.1 kDUkyuxp25.0-100.0The [facility] Hospital At SouthwoodsComment on above:Performed By: #### 0501140, 8128057, 3161564, 43752265 ####[address] [address]Hnwohmpd mean volume (Bld) [Entitic vol]7.2 fLNormal6.4-10.8The [facility] Hospital At SouthwoodsComment on above:Performed By: #### 3968475, 7708395, 9193814, 02886834 ####[address] [address]Rrorkaqbm (Bld) [#/Vol]232.0 E9/L Pmyptn901.0-500.0The [facility] Hospital At SouthwoodsComment on above:Performed By: #### 9388951, 8467049, 6159766, 89332284 ####[address] [address]UTI (Bld) [#/Vol]3.1 E12/LLow4.3-5.9 [facility] Hospital At SouthwoodsComment on above:Performed By: #### 9245324, 2108541, 0515493, 84649659 ####[address] [address]MOZ corrected for nucl RBC Auto (Bld) [#/Vol]8.3 E9/LNormal 4.0-11.0The [facility] Hospital At SouthwoodsComment on above:Performed By: #### 8055215, 3319090, 6125402, 61398504 ####[facility] Fcokqxmfom[address] [address]QXZPSWFHGKmdlxln By: SYSTEM SYSTEM on 07-17-2023 Anion gap [Moles/Vol]8 mmol/LNormal6 - 16 mEq/LFTMC RemisolCalcium [Mass/Vol]8.8 mg/dLLow8.9 - 11.1 mg/dLFTMC RemisolChloride [Moles/Vol]104 mmol/CDihbkp508 - 111 mmol/LFTMC RemisolCO2 [Moles/Vol]27 mmol/NTglwjv88 - 31 mmol/LFTMC Remisol Creatinine [Mass/Vol]0.6 mg/dLNormal0.5 - 1.3 mg/dLFTMC RemisolGFR/1.73 sq M.predicted among non-blacks MDRD (S/P/Bld) [Vol rate/Area]130 mL/min/1.73 m2 Normal>=59mL/min/1.73 m2FT Chem SComment on above:Interpretive Data: Chronic kidney disease could be indicated at eGFR's of less than 60 mL/min/1.73m2. Kidney failure is indicated at less than 15 mL/min/1.73m2.Glucose [Mass/Vol]118 mg/fCAnbdrz38 - 199 mg/dLFTMC RemisolComment on above:Interpretive Data: If this glucose result represents a fasting glucose, interpretation should referto the following reference range: 55-99 mg/dLPotassium [Moles/Vol]3.1 mmol/LLow3.5 - 5.3 mmol/LFTMC RemisolSodium [Moles/Vol]136 mmol/KOdpwft374 - 145 mmol/LFTMC RemisolUrea nitrogen [Mass/Vol]6 mg/dLNormal5 - 21 mg/dLFTMC RemisolUrea nitrogen/Creatinine [Mass ratio]10 mg/viMikzyw98 - 20FTMC RemisolConsent for Treatmenton 76-41-1583Sojgarh for Treatment [id number]#1.00[facility] CenterDischarge Instructionson 74-24-8290Pasthewfd Instructions [id number]#1.00[facility] Clinical Summaryon [id number] Clinical Summary [place] [id number] ED Clinical Summary Person Information Name: YANETH DENNIS Tyra/[facility] Age: 22 Years : 2000 Sex: Female Language: Senegalese PCP: Bianka WOODS CNP Marital Status: Single Phone: [phone] Visit Id: Visit Reason: Medical problem - minor; Chills; HOT/COLD SWEATS Speciality: Acuity: 3 Enc Type: Emergency Med Service: Emergency Arrival: 07/17/2023 13:35:03 Discharge: 07/17/2023 16:12:20 LOS: 000 02:37 Checkin: 07/17/2023 13:35:03 Checkout: 07/17/2023 16:12:20 Dispo Type: Home (Routine DC) EVENTS: Event Name Event Status Request Date/Time Start Date/Time Complete Date/Time Arrive Complete 07/17/2023 13:35:03 07/17/2023 13:35:03 07/17/2023 13:35:03 Document Home Meds Request 07/17/2023 13:35:03 Triage Complete 07/17/2023 13:35:03 07/17/2023 13:52:39 07/17/2023 13:52:39 Bed Assign Complete 07/17/2023 13:39:19 07/17/2023 13:39:19 07/17/2023 13:39:19 Dr Exam Complete 07/17/2023 13:39:19 07/17/2023 13:43:16 07/17/2023 13:43:16 RN Exam Complete 07/17/2023 13:39:19 07/17/2023 15:45:49 07/17/2023 15:45:49 Registration Complete 07/17/2023 13:43:16 07/17/2023 13:45:32 07/17/2023 14:33:45 Dr Exam Complete 07/17/2023 13:44:46 07/17/2023 13:44:46 07/17/2023 13:44:46 Pending Labs Complete 07/17/2023 13:58:06 07/17/2023 15:22:30 Lab Complete 07/17/2023 13:58:06 07/17/2023 15:22:30 Urine Collect Complete 07/17/2023 13:58:06 07/17/2023 15:22:30 Meds Admin Request 07/17/2023 13:58:06 Pending Labs Complete 07/17/2023 14:28:57 07/17/2023 14:28:57 07/17/2023 14:43:58 Lab Complete 07/17/2023 14:28:57 07/17/2023 14:28:57 07/17/2023 14:43:58 Pending Labs Complete 07/17/2023 14:31:27 07/17/2023 14:31:27 07/17/2023 14:31:27 Pending Labs Complete 07/17/2023 14:31:46 07/17/2023 14:31:46 07/17/2023 14:31:46 Reg Complete Request 07/17/2023 14:33:45 Reg Bed Request Complete 07/17/2023 14:33:45 07/17/2023 14:33:45 07/17/2023 14:33:45 Pending Labs Complete 07/17/2023 14:38:20 07/17/2023 14:38:20 07/17/2023 14:38:26 Lab Complete 07/17/2023 14:38:20 07/17/2023 14:38:20 07/17/2023 14:38:26 Meds Admin Complete 07/17/2023 15:38:27 07/17/2023 15:50:19 Meds Admin Complete 07/17/2023 15:50:21 07/17/2023 15:58:46 Discharge Complete 07/17/2023 15:59:56 07/17/2023 16:12:29 07/17/2023 16:12:29 Transfer Complete 07/17/2023 16:12:29 07/17/2023 16:12:29 07/17/2023 16:12:29 ADDRESS: [address] [place] [id number] PHYS DOC NOTES: MEDICAL INFORMATION: Prescriptions Given: New Medications [facility]/pharmacy #[id number], [address] [place] [id number], [phone] lorazepam (Ativan 1 mg Tab) 1 Tablets By Mouth 3 times a day for 3 Days. Refills: 0. Medications to Continue Taking That Have Changed [facility]/pharmacy #[id number], [address], [place] [id number], [phone] START: escitalopram (Lexapro 20 mg Tab) 1 Tablets By Mouth every day. Refills: 0. Other Medications START: escitalopram (Lexapro 20 mg Tab) 1 Tablets By Mouth every day. Refills: 0. Medications to Continue with No Changes Other Medications cyclobenzaprine (cyclobenzaprine 10 mg Tab) 1 Tablets By Mouth 3 times a day. Refills: 0. diclofenac (diclofenac sodium 75 mg Oral EC Tab) 1 Tablets By Mouth 2 times a day. Refills: 11. ethinyl estradiol-norethindrone (Junel Fe / oral tablet) TAKE 1 TABLET BY MOUTH EVERY DAY. hydrOXYzine (hydrOXYzine hydrochloride 25 mg Tab) 1 Tablets By Mouth 4 times a day as needed for anxiety. Refills: 3. PATIENT EDUCATION INFORMATION: Instructions: Hypokalemia; Generalized Anxiety Disorder, Adult Follow up: With: Address: When: Bianka WOODS [address] [place] [address] Business (1) In 3 days 07/20/2023 DIAGNOSIS: Anxiety; Chills; HypokalemiaNormalFisher Neal Medical CenterED Note-Physicianon [id number] Note-PhysicianBasic Information Time Seen: Ilya Patel DO 07/17/2023 13:43 Chief Complaint Pt reports back surgery on @ [facility] for scoliosis. Pt presents with bender catheter from surgery. No confirmed fever, pt c/o sweating and chills, denies n/v/diarrhea. Pt reports not taking antidepressants since Monday. History of Present Illness 22-year-old female comes to the ED for evaluation of generalized illness. She states she had recentspinal surgery clinic clinic for scoliosis. She currently has Bender catheter in postoperatively. She states for the last few days she has felt generally unwell and has had shakiness and sweats. No documented fevers. She denies any acute pain. She does have back pain but describes as normal, no worse than her baseline. She denies any chest pain or shortness of breath. No nausea vomiting diarrhea. No abdominal pain. She states she is noted good urinary output. She does state that she had multiplemedication adjustments performed and has been off of her Lexapro for the last several days and is wo ndering if that is contributory. Denies any concern for with oral control use Review of Systems A 10 point review of systems is negative except as noted above. Medical and Surgical History: Reviewed and noted Social history: Lives at home Tobacco: Denies Physical Exam Vitals & Measurements T: 37.0 ?C(Oral) HR: 98(Monitored) RR: 14 BP: 117/84 SpO2: 99% HT: 172.72 cm WT: 95.5 kg BMI: 32.01 Nurses notes and vital signs reviewed and patient is not hypoxic. General: The patient appears well, resting comfortably. Skin: Warm, dry. Head: Atraumatic. Neck: No JVD. Eye: Normal conjunctiva. Ears, Nose, Mouth, and Throat: Moist mucous membranes. Cardiovascular: Strong distal pulses. Chest wall: Respiratory: Respirations are nonlabored. Back: Normal range of motion. Musculoskeletal: Normal ROM with no gross deformity. Gastrointestinal: Soft and nontender Urological: Bender catheter noted with good urine output Neurological: Awake and alert. No focal deficits. Follows commands. Psychiatric: Cooperative. Medical Decision Making Laboratory studies reviewed and noted. Mild hypokalemia this was replaced orally. Patient has no focal finding on examination patient is afebrile. No chest pain or shortness of breath. Suspect her symptoms are most likely related to being off of her Lexapro for the last several days. She is given arefill today. She did feel jittery and was given Ativan with improvement. She is given a short supply of this as well. Discharged to follow-up with her PCP. Patient was encouraged to return to the EDif symptoms worsen or change. Assessment/Plan Anxiety (F41.9: Anxiety disorder, unspecified) Chills (R68.83: Chills (without fever)) Hypokalemia (E87.6: Hypokalemia) Orders: escitalopram, 20 mg = 1 tab(s), Oral, Daily, # 30 tab(s), Refills(s) 0, Pharmacy: [facility]/pharmacy #[id number], 172.7, cm, 07/17/23 13:52:00 EDT, Height/Length Dosing, 95.5, kg, 07/17/23 13:52:00 EDT, Weight Dosing lorazepam, 1 mg = 1 tab(s), Oral, TID, X 3 day(s), # 9 tab(s), Refills(s) 0, Pharmacy: [facility]/pharmacy#[id number], 172.7, cm, 07/17/23 13:52:00 EDT, Height/Length Dosing, 95.5, kg, 07/17/23 13:52:00 EDT, Weight Dosing lorazepam, 1 mg = 1 tab(s), Tab, Oral, Once, Stop date 07/17/23 15:50:00 EDT, STAT, Start date 07/17/23 15:50:00 EDT, 07/17/23 15:50:00 EDT morphine, 4 mg = 2 mL, Injection, IV Push, Once, Stop date 07/17/23 13:57:00 EDT, STAT, Start date 07/17/23 13:57:00 EDT, 07/17/23 13:57:00 EDT ondansetron, 4 mg = 2 mL, Injection, IV Push, Once, Stop date 07/17/23 13:57:00 EDT, STAT, Start date 07/17/23 13:57:00 EDT, 07/17/23 13:57:00 EDT potassium bicarbonate, 50 mEq = 2 tab(s), Tab-Eff, Oral, Once, Stop date 07/17/23 15:38:00 EDT, STAT, Start date 07/17/23 15:38:00 EDT, 07/17/23 15:38:00 EDT Sodium Chloride 0.9% intravenous solution 1,000 mL, 1,000 mL, IV, Bolus, STAT, Start date 07/17/23 13:57:00 EDT, Total volume (mL): 1,000, 95.5 kg, 2.14, m2 Automated Diff Basic Metabolic Panel CBC w/ Auto Diff eGFR Extra Blue Tube Extra SST Tube UA With Cult Reflex Medications Administered Given Sodium Chloride 0.9% IV Beatriz 1000 mL 1,000 mL, 1000 mL, IV Ativan 1 mg Tab, 1 mg, Oral morphine 2 mg/mL Inj, 4 mg, IV Push potassium bicarbonate 25 mEq Tab (K-LYTE), 50 mEq, Oral Zofran 4 mg/2 mL Injection, 4 mg, IV Push Disposition Plan Patient Discharge Condition Disposition: Discharged home Condition: Improved and stable Counseled: Patient and/or family were counseled to workup, results, treatment plan and follow-up recommendations Discharge Prescription List Prescriptions Ativan 1 mg Tab, 1 mg= 1 tab(s), Oral, TID Lexapro 20 mg Tab, 20 mg= 1 tab(s), Oral, Daily Follow-up With When Contact Information Bianka WOODS In 3 days 07/20/2023 EDT [address] [id number] [facility] (1) Additional Instructions: Patient Education Hypokalemia Generalized Anxiety Disord (more content not included)...[facility] HospitalComment on above:Result Comment: Electronically Signed By: Jermain Santana PA-C\.br\Date and Time Signed: 07/17/2316:06 EDT\.br\Electronically Co-Signed By: Ilya Patel DO\.br\Date and Time Co- Signed: 07/17/23 18:38 EDTED Patient Education Noteon [id number] Patient Education NoteGastroenterology Hypokalemia Hypokalemia means that the amount of potassium in the blood is lower than normal. Potassium is a mineral (electrolyte) that helps regulate the amount of fluid in the body. It also stimulates muscle tightening (contraction) and helps nerves work properly. Normally, most of the body's potassium is inside cells, and only a very small amount is in the blood. Because the amount in the blood is so small, minor changes to potassium levels in the blood can be life-threatening. What are the causes? This condition may be caused by: ? Antibiotic medicine. ? Diarrhea or vomiting. Taking too much of a medicine that helps you have a bowel movement (laxative) can cause diarrhea and lead to hypokalemia. ? Chronic kidney disease (CKD). ? Medicines that help the body get rid of excess fluid (diuretics). ? Eating disorders, such as anorexia or bulimia. ? Low magnesium levels in the body. ? Sweating a lot. What are the signs or symptoms? Symptoms of this condition include: ? Weakness. ? Constipation. ? Fatigue. ? Muscle cramps. ? Mental confusion. ? Skipped heartbeats or irregular heartbeat (palpitations). ? Tingling or numbness. How is this diagnosed? This condition is diagnosed with a blood test. How is this treated? This condition may be treated by: ? Taking potassium supplements. ? Adjusting the medicines that you take. ? Eating more foods that contain a lot of potassium. If your potassium level is very low, you may need to get potassium through an IV and be monitored in the hospital. Follow these instructions at home: Eating and drinking ? Eat a healthy diet. A healthy diet includes fresh fruits and vegetables, whole grains, healthy fats, and lean proteins. ? If told, eat more foods that contain a lot of potassium. These include: ? Nuts, such as peanuts and pistachios. ? Seeds, such as sunflower seeds and pumpkin seeds. ? Peas, lentils, and schultz beans. ? Whole grain and bran cereals and breads. ? Fresh fruits and vegetables, such as apricots, avocado, bananas, cantaloupe, kiwi, oranges, tomatoes, asparagus, and potatoes. ? Juices, such as orange, tomato, and prune. ? Lean meats, including fish. ? Milk and milk products, such as yogurt. General instructions ? Take cscl-koc-oinpndy and prescription medicines only as told by your health care provider. This includes vitamins, natural food products, and supplements. ? Keep all follow-up visits. This is important. Contact a health care provider if: ? You have weakness that gets worse. ? You feel your heart pounding or racing. ? You vomit. ? You have diarrhea. ? You have diabetes and you have trouble keeping your blood sugar in your target range. Get help right away if: ? You have chest pain. ? You have shortness of breath. ? You have vomiting or diarrhea that lasts for more than 2 days. ? You faint. These symptoms may be an emergency. Get help right away. Call 911. ? Do not wait to see if the symptoms will go away. ? Do not drive yourself to the hospital. Summary ? Hypokalemia means that the amount of potassium in the blood is lower than normal. ? This condition is diagnosed with a blood test. ? Hypokalemia may be treated by taking potassium supplements, adjusting the medicines that you take, or eating more foods that are high in potassium. ? If your potassium level is very low, you may need to get potassium through an IV and be monitoredin the hospital. This information is not intended to replace advice given to you by your health care provider. Make sure you discuss any questions you have with your health care provider. Document Revised: 05/19/2022 Document Reviewed: 05/19/2022 [employer] Patient Education ? 2022 [employer]. Mental and Behavioral Health Generalized Anxiety Disorder, Adult Generalized anxiety disorder (TAYLA) is a mental health condition. Unlike normal worries, anxiety related to TAYLA is not triggered by a specific event. These worries do not fade or get better with time.TAYLA interferes with relationships, work, and school. TAYLA symptoms can vary from mild to severe. People with severe TAYLA can have intense waves of anxietywith physical symptoms that are similar to panic attacks. What are the causes? The exact cause of TAYLA is not known, but the following are believed to have an impact: ? Differences in natural brain chemicals. ? Genes passed down from parents to children. ? Differences in the way threats are perceived. ? Development and stress during childhood. ? Personality. What increases the risk? The following factors may make you more likely to develop this condition: ? Being female. ? Having a family history of anxiety disorders. ? Being very shy. ? Experiencing very stressful life events, such as the of a loved one. ? Having a very stressful family environment. What are the signs or symptoms? People with TAYLA often wor (more content not included)...[facility] Patient Summaryon [id number] Patient Summary [address] [address] Patient Discharge Instructions Person Information Name: YANETH DENNIS Age: 22 Years Arrival Date: 07/17/2023 13:35:03 Discharge Diagnosis: Anxiety; Chills; Hypokalemia Primary Care Physician: Bianka WOODS CNP Provider Information Primary Provider: Ilya Patel DO Advanced Veneer Stacker:Jermain Santana PA-C The exam and treatment you received in the Emergency Department were for an urgent problem and are not intended as complete care. It is important that you follow up with a doctor, nurse practitioner,or physician?s commercial lines account assistant for ongoing care. If your symptoms become worse or you do not improve as expected and you are unable to reach your usual health care provider, you should return to the Emergency Department. We are available 24 hours a day. YANETH DENNIS has been given the following list of patient education materials, prescriptions and follow-up instructions: Follow-up Instructions: With: Address: When: Biankanicolette BUCKLEYJOI [address] [place] [address] Business (1) In 3 days 07/20/2023 In the event that this physician does not participate in your insurance network, please consult with your insurance company to find a nearby participating provider. Patient Education Materials: Hypokalemia; Generalized Anxiety Disorder, Adult A MESSAGE TO ALL PATIENTS REGARDING OPIOIDS PRESCRIPTION OPIOIDS: WHAT YOU NEED TO KNOW Prescription opioids can be used to help relieve vpgjhgkw-iq-wiiyrj pain and are often prescribed following a surgery or injury, or for certain health conditions. These medications can be an important part of the treatment but also come with serious risks. It is important to work with your healthcare provider to make sure you are getting the safest, most effective care. WHAT ARE THE RISKS AND SIDE EFFECTS OF OPIOID USE? Prescription opioids carry serious risks of addiction and overdose, especially with prolonged use. An opioid overdose, often marked by slowed breathing, can cause sudden . The use of prescription opioids can have a number of side effects as well, even when taken as directed: ? Tolerance?meaning you might need to take more of the medication for the same pain relief ? Physical dependence?meaning you have symptoms of withdrawal when a medication is stopped ? Increased sensitivity to pain ? Constipation ? Nausea, vomiting, and dry mouth ? Sleepiness and dizziness ? Confusion ? Depression ? Low levels of testosterone that can result in lower sex drive, energy, and strength ? Itching and sweating RISKS ARE GREATER WITH: ? History of drug misuse, substance use disorder, or overdose ? Mental health conditions (such as depression or anxiety) ? Sleep apnea ? Older age (65 years and older) ? Avoid alcohol while taking prescription opioids. Also, unless specifically advised by your health care provider, medications to avoid include: ? Benzodiazepines (such as Xanax or Valium) ? Muscle relaxants (such as Soma or Flexeril) ? Hypnotics (such as Ambien or Lunesta) ? Other prescription opioids KNOW YOUR OPTIONS Talk to your health care provider about ways to manage your pain that don?t involve prescription opioids. Some of these options may actually work better and have fewer risks and side effects. Optionsmay include: ? Pain relievers such as acetaminophen, ibuprofen, and naproxen ? Some medication that are also used for depression or seizures ? Physical therapy and exercise ? Cognitive behavioral therapy, a psychological, goal-directed approach, in which patients learn how to modify physical, behavioral, and emotional triggers of pain and stress. IF YOU ARE PRESCRIBED OPIOIDS FOR PAIN: ? Never take opioids in greater amounts or more often than prescribed. ? Follow up with your primary health care provider. o Work together to create a plan on how to manage your pain. o Talk about ways to help manage your pain that don?t involve prescription opioids. o Talk about any and all concerns and side effects. ? Help prevent misuse and abuse o Never sell or share prescription opioids. o Never use another person?s prescription opioids. ? Store prescription opioids in a secure place and out of reach of others (this may include visitors, children, friends, and family). ? Safely dispose of unused prescription opioids: Find your community drug take- back program or yourYee CarermSyrmo mail-back program, or flush them down the toilet, following guidance from the Food and Drug Administration (www.fda.gov/Drugs/ResourcesForYou). ? Visit www.cdc.gov/drugoverdose to learn about the risks of opioids abuse and overdose. ? If you believe you may be struggling with addiction, tell your health childcare director and ask for guidance or call [facility]?S National Helpline at 1-800 (more content not included)...[facility] HospitalHEMATOLOGYOrdered By: SYSTEM SYSTEM on [id number]/100 WBC (Bld)0.4 %Normal0.0 - 2.0 %[facility] HemeAutoSSBasophils/Leukocytes Auto (Bld) [Pure # fraction]0.0 E9/LNormal0.0 - 0.2 E9/LFTMC HemeAutoSSEosinophils/100 WBC (Bld)2.9 %Normal0.0 - 8.0 %[facility] HemeAutoSSEosinophils/Leukocytes Auto (Bld) [Pure # fraction]0.2 E9/LNormal0.0 - 0.5 E9/LFTMC HemeAutoSSLymphocytes/100 WBC (Bld)21.0 %Onzykb07.0 - 50.0 %[facility] HemeAutoSSLymphocytes/Leukocytes Auto (Bld) [Pure # fraction]1.7 E9/LNormal1.0 - 4.0 E9/LFTMC HemeAutoSSMonocytes/100 WBC (Bld)8.2 %Normal4.0 - 14.0 %[facility] HemeAutoSSMonocytes/Leukocytes Auto (Bld) [Pure # fraction]0.7 E9/LNormal0.2 - 1.0 E9/LFTMC HemeAutoSSNeutrophils/100 WBC (Bld)67.5 %Qxxxea90.0 - 75.0 %[facility] HemeAutoSSNeutrophils/Leukocytes Auto (Bld) [Pure # fraction]5.6 E9/LNormal2.0 - 7.5 E9/LFTMC HemeAutoSSHEMATOLOGYOrdered By: Samantha Polo on 07-17-2023 Erythrocyte distribution width (RBC) [Ratio]14.0 %Abewvv64.9 - 14.2 %[facility] HemeAutoSSHematocrit (Bld) [Volume fraction]27.7 %Low34.0 - 46.0 %[facility] HemeAutoSSHemoglobin (Bld) [Mass/Vol]9.2 g/dLLow12.0 - 16.0 gm/dLFTMC HemeAutoSS MCH (RBC) [Entitic mass]30.0 eqAhfvxp54.0 - 34.0 pgFVALIR REHABILITATION [facility] [place] HemeAutoSSMCHC (RBC) [Mass/Vol]33.3 g/kMGjvupk48.4 - 36.0 gm/dLMCCURTAIN [facility] HemeAutoSSMCV (RBC) [Entitic vol] 90.1 xMNlcflk04.0 - 100.0 fLMCCURTAIN MEMORIAL HOSPITAL – [place] HemeAutoSSPlatelet mean volume (Bld) [Entitic vol]7.2 fLNormal6.4 - 10.8 fLMCCURTAIN MEMORIAL HOSPITAL – [place] HemeAutoSSPlatelets (Bld) [#/Vol]232.0 E9/L Gvayko049.0 - 500.0 E9/LFVALIR REHABILITATION HOS[facility] [place] HemeAutoSSRBC (Bld) [#/Vol]3.1 E12/LLow4.3 - 5.9 E12/[facility] HemeAutoSSWBC corrected for nucl RBC Auto (Bld) [#/Vol]8.3 E9/LNormal 4.0 - 11.0 E9/[facility] HemeAutoSSUA With Cult Reflexon [id number] Ql (U) NegativeNormalNegativeThe Surgical Hospital At SouthwoodsComment on above:Performed By: #### [id number] ####[facility] [address] [place], [place] [address]Hxbcqdu (U)CLEARNormalClearThe Surgical Hospital At SouthwoodsComment on above: Performed By: #### [id number] ####[address] [place], [place] [address]Uxdpy (U)YELLOWNormalYellowThe Surgical Hospital At SouthwoodsComment on above:Performed By: #### [id number] ####[address] [place], [place] [address]Rdwpptlzvh cells.squamous LM.HPF (Urine sed) [#/Area]2-5Pvbzrx7-5Tnsdon [facility] BaltimoreComment on above:Performed By: #### [id number] ####[facility] [address] [place], [place] [address]Cihpcqq Test strip (U) [Mass/Vol]NegativeNormal NegativeThe Surgical Hospital At SouthwoodsComment on above:Performed By: #### [id number] ####[address] [address] Hemoglobin Ql (U)3+AbnormalNegativeThe Surgical Hospital At SouthwoodsComment on above: Performed By: #### [id number] ####[address] [address]Fwpjdzz (U) [Mass/Vol]NegativeNormalNegativeThe Surgical Hospital At SouthwoodsComment on above:Performed By: #### [id number] ####[address]plasma/[address].RBC (Bld) [Mass ratio]9-2Uezhgu1-1Fmiytp [facility] BaltimoreComment on above:Performed By: #### [id number] ####[address] [address]Xihxcpd Ql (U)NegativeNormal NegativeThe Surgical Hospital At SouthwoodsComment on above:Performed By: #### [id number] ####[address] [address]lI (U)5.5 [pH]Invalid Interpretation Code5.0-9.0The [facility] SouthwoodsComment on above:Performed By: #### [id number] ####[address] [address]Ztsrmkk (U) [Mass/Vol]TRACEAbnormal NegativeThe Surgical Hospital At SouthwoodsComment on above:Performed By: #### [id number] ####[address] [address] Specific gravity (U) [Rel density]<=1.005Invalid Interpretation Code1.005-1.030 [facility] SouthwoodsComment on above:Performed By: #### [id number] ####[address] [address]Wgxe of Urine collection methodFoleyNoalThe Surgical Hospital At SouthwoodsComment on above:Performed By: #### [id number] ####[address] [address]Hziufwpgtnjb Qn (U)0.2 {Jakob'U}/dLNormal0.0-1.0 [facility] SouthwoodsComment on above:Performed By: #### [id number] ####[facility] [address] [place], [place] [address]ETW Auto Ql (U)TRACEAbnormalNegativeThe [facility] Hospital At SouthwoodsComment on above: Performed By: #### [id number] ####[facility] [address] [place], [place] [address]IDT LM.HPF (Urine sed) [#/Area]1-1Lhkhja0-9Feaqdc [facility] BaltimoreComment on above:Performed By: #### [id number] ####[facility] [address] [place], [place] [address]Yxmvh LM Ql (Urine sed)TRACENormalThe Surgical Hospital At SouthwoodsComment on above:Performed By: #### [id number] ####[facility] [address] [place], [place] [address]CXYBSRQGYPRshvbfg By: Kailyn Loyola on [id number] Ql (U) Negative (07/17/23 2:59 PM)NormalNegativeMCCURTAIN [facility] [place] UA Auto SSClarity (U)Clear (07/17/23 2:59 PM)NormalClearFVALIR REHABILITATION [facility] [place] UA Auto SSColor (U)Yellow (07/17/23 2:59 PM)NormalYellowMCCURTAIN MEMORIAL [facility]OSP[facility] [place] UA Auto SSEpithelial cells.squamous LM.HPF (Urine sed) [#/Area]0-2 /HPFNormal0-2/HPFFTMC UA Auto SSGlucose Test strip (U) [Mass/Vol]Negative (07/17/23 2:59 PM)NormalNegativeMCCURTAIN [facility] [place] UA Auto SSHemoglobin Ql (U)3+ *ABN* (07/17/23 2:59 PM)Invalid Interpretation CodeNegativeMCCURTAIN [facility] [place] UA Auto SSKetones (U) [Mass/Vol]Negative (07/17/23 2:59 PM)NormalNegativeMCCURTAIN [facility]ORIAL [facility] [place] UA Auto SSLithium.plasma/[address].RBC (Bld) [Mass ratio]0-3 /HPFNormal0-3/HPFMCCURTAIN MEMORIAL HOSP[facility] [place] UA Auto SSNitrite Ql (U)Negative (07/17/23 2:59 PM)NormalNegativeMCCURTAIN [facility] [place] UA Auto SSpH (U)5.5 *NA* (07/17/23 2:59 PM)Invalid Interpretation Code5.0 - 9.0[facility] [place] UA Auto SSProtein (U) [Mass/Vol]Trace *ABN* (07/17/23 2:59 PM)Invalid Interpretation CodeNegativeMCCURTAIN [facility] [place] UA Auto SSSpecific gravity (U) [Rel density]<=1.005 *NA* (07/17/23 2:59 PM)Invalid Interpretation Code1.005 - 1.030[facility] [place] UA Auto SSUA Spec DescFoley (07/17/23 2:59 PM)NormalMCCURTAIN MEMORIAL HOSPITAL – [place] UA Auto SSUrobilinogen Qn (U)0.2492253 {Jakob'U}/dLNormal0.0 - 1.0 EU/dLMCCURTAIN [facility]ORIAL HOSP[facility] [place] UA Auto SSWBC Auto Ql (U)Trace *ABN* (07/17/23 2:59 PM)Invalid Interpretation CodeNegativeMCCURTAIN [facility] UA Auto SSWBC LM.HPF (Urine sed) [#/Area]0-5 /HPFNormal0-5/HPFMCCURTAIN [facility] Auto SSYeast LM Ql (Urine sed) Trace (07/17/23 2:59 PM)NormalMCCURTAIN [facility] Auto SSeGFRon 47-74-1119OEC/1.73 sq M.predicted among non-blacks MDRD (S/P/Bld) [Vol rate/Area]130 mL/min/1.73 i4Xwrbbr>=59 [facility]woodsComment on above:Order Comment: Order added by Discern Expert.Result Comment: Chronic kidney disease could be indicated at eGFR's of less than 60 mL/min/1.73m2. Kidney failure is indicated at less than 15 mL/min/1.73m2.Performed By: #### [id number], [id number] ####[facility] [address] [place] [address] Admission Noteon 25-52-5260Myzquxmay Note [id number]#1.00TIFFNormCommunity Regional Medical CenterInsurance Correspondenceon 57-70-1100Qjvpvgdyk Correspondence [id number]#1.00TIFFNormCommunity Regional Medical CenterFormson [id number]#1.00TIFF [facility] HospitalConsultation Noteon 98-44-3120Mpwhmxayecbh Note [id number]#1.00CD:127NormCommunity Regional Medical CenterFasaint luke's hospital Medicine Office/Clinic Noteon [id number] Medicine Office/Clinic NoteChief Complaint Abd pain HPI Staff Pt is here today with right lower abd pain for the past two wks. States it is on and off, states the pain is very sharp. States she lays on a pillow when the pain starts, applying pressure helps. Pt denies urinary sx, BMs are normal. Pt would also like to discuss the wart on her right knee, states there has been no change in it after the verruca freeze treatment. The standard range for ages 18 and older is >=18.5 and < 25 kg/m2. Your BMI today was above this range, this falls in the overweight to obese category and there are medical benefits to weight loss. We can offer counselling, referral, and/or medical support in addressing this problem. Your BMIand weight management will be followed at subsequent visits. History of Present Illness Yaneth Dennis is a 22-year-old female who presents today with complaints of abdominal pain. The last time I saw her, she was getting in with ortho spine, possibly needing a repeat spinal surgery as she was seen at the ER and had imaging done and it was found that she had laminar clips in the thoracic spine that were going into her musculature. She previously had scoliosis surgery when shewas younger. She is accompanied by an adult female. She is having surgery on her back. More scans were done, and they told her that she has deteriorating discs, screws are coming loose, and she has something broken at the bottom of it. The adult female states that the patient has a screw digging into a nerve. Her whole leg is numb from surgery. She had a nerve test on her knee and the leg did not move. She goes to [facility] for the back. The patient states that the wart freeze treatment did not move or budge. It changed colors and thatis it. She would rather have it removed. She has been having intermittent abdominal pain for 3 weeks. She had blood work done. She also had a urine test, and it came back as contaminated. She had to go back today at 7:00 AM to do more bloodwork because they messed it up and another urine test. She thought that she was getting a UTI because it was irritating for about a week. She switched her toilet paper, and she has been fine, but thepain is still there. The pain is intermittent, but when she does get it, it is sharp and stabbing. It alleviates the symptoms if he applies pressure in the area. The patient's bowel movements are normal. She denies constipation, diarrhea, fevers, chills, weight loss, nausea, or heartburn. Her appetite has decreased. Her menstrual cycles are irregular. Her chief safety officer states that they have a familial history of endometriosis. Physical Exam Vitals & Measurements HR: 88(Peripheral) BP: 130/82 SpO2: 98% HT: 69 in HT: 175.3 cm WT: 93.8 kg WT: 206.36 lb BMI: 30.52 General: Overweight female, in no acute distress Lungs: Normal respiratory effort and clear to auscultation Cardio: Regular rate and rhythm, normal S1 and S2, no murmur, no rub Abdomen: Soft, nondistended. Bowel sounds normal x4. Positive right lower core tenderness to palpation. Positive rebound tenderness. Positive Nix's sign. Bowel sounds within normal limits x4. Mental Status: Alert and oriented x3. Normal mood and affect Assessment/Plan 1. RLQ abdominal pain (R10.31: Right lower quadrant pain) Appendix versus pelvic etiology. We will proceed with CT of the abdomen and pelvis with contrast torule out. Did encourage ER evaluation if pain becomes persistent. 2. Rebound tenderness (R10.829: Rebound abdominal tenderness, unspecified site) See # 1. 3. Back pain with history of spinal surgery (M54.9: Dorsalgia, unspecified) Did get 2017 records from ortho spine, however, I have no records from the current work-up at [facility]. She is going to take the disability paperwork to the specialist. I did keep a copy in case I need to fill it out or return for removal at her convenience. 4. Wart (B07.9: Viral wart, unspecified) Can schedule to come back in for removal at her convenience 5. BMI 30.0-30.9,adult (Z68.30: Body mass index [BMI] 30.0-30.9, adult) DASH diet and weight loss encouraged. ATTESTATION: Portions of this record may have been created with voice recognition artificial intelligence software, specifically [employer], [employer] and or [employer]. Substitutions may have occurred due to the inherent limitations of voice recognition and artificial intelligence software. Documentation services were performed after patient or guardian consented to allow [employer] to record this visit. MAYRA coding support specialist and provider reviewed before signing. MAYRA: Carly Hernández Follow-up No qualifying data available Problem List/Past Medical History Ongoing Anxiety disorder due to medical condition Asthma Back pain with history of spinal surgery Insulin resistance Moderate major depression Rebound tenderness RLQ abdominal pain Wart Historical Ear infections Pregnan (more content not included)...[facility] HospitalComment on above:Result Comment: Electronically Signed By: Bianka WOODS CNP\.br\Date and Time Signed: 06/21/23 09:47 EDT\.br\Electronically Co-Signed By: Carly Hernández\.br\Date and Time Co-Signed: 06/20/23 18:[address] - [address] Reporton [id number] - CT [id number]:127 [facility] HospitalRAD - MISCon 23-52-4011VTS - MISC [id number]#1.00CD:127[facility] HospitalRAD - [id number]#1.00CD:127[facility] HospitalComment on above:Other Comment: INCOMPLETE SCAN.NDWRAD - MRI Reporton [id number] - MRI Report [id number]#1.00CD:127NoGood Samaritan HospitalAmbulatory Visit Summaryon 66-54-9952Wrrrkwybqg Visit Summary YANETH DENNIS :2000 Visit Date:06/20/2023 Ambulatory Visit Instructions Your Diagnosis RLQ abdominal pain Rebound tenderness Back pain with history of spinal surgery Wart BMI 30.0-30.9,adult Your Care Team Attending Physician - Bianka WOODS CNP Primary Care Physician - Bianka WOODS CNP This Is Your Medications List Contact prescribing physician if questions or concerns cyclobenzaprine (cyclobenzaprine 10 mg Tab) diclofenac (diclofenac sodium 75 mg Oral EC Tab) escitalopram (Lexapro 20 mg Tab) ethinyl estradiol-norethindrone (Junel Fe 10/07 oral tablet) hydrOXYzine (hydrOXYzine hydrochloride 25 mg Tab) [Image Removed: STOP]Stop taking these medications meloxicam (meloxicam 15 mg Tab) naproxen (naproxen 500 mg Tab) Procedures Performed Tonsillectomy, tubes in ears. Discharge Vitals Heart Rate (Peripheral) 88 Blood Pressure 130/82 Height 175.3 cm Height 69 in Weight 93.8 kg Weight 206.36 lb BMI 30.52 What to do next You Need to Complete the Following CT Abdomen/Pelvis w/ Contrast, 06/20/23, Routine, Order for future visit, Transport Mode: Ambulatory, Reason: Other (please specify), Reason: RLQ abdominal pain, No, No, RLQ abdominal painCleveland Clinic Medina HospitalCT LUMBAR SPINE WO IVCONon 07-25-7778Uekaiacan ClinicMR Lumbar spine WO contraston 05-24-2023* * *Final Report* * * DATE OF EXAM: May 24 2023 9:51AM LNM 0303 - MRI LUMBAR SPINE WO IVCON / PROCEDURE REASON: Spinal stenosis of lumbar region, unspecified whether neurogenic claudication pr * * * * Physician Interpretation * * * * EXAMINATION: MRI LUMBAR SPINE WO IVCON CLINICAL HISTORY: 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 Chronic progressive low back pain and bilateral lower extremity numbness and paresthesias. TECHNIQUE: Routine lumbosacral spine MR protocol without gadolinium. MQ: MRLSPWO_3 COMPARISON: 05/24/2023 RESULT: Counting reference: Lumbosacral junction. For the purposes of this report, L4-5 is considered the level of the iliac crest and assume there are 5 lumbar-type vertebrae. Anatomic variant: None. Localizer images: No additional findings. Alignment: Alignment is anatomic. Mild disc space narrowing is noted at L1-2 through L3-4 and at the L5-S1 level. Bone marrow signal/fracture: No evidence of pathologic marrow replacement. Prominent susceptibility artifact compatible bilateral pedicle screws and interconnecting rods at the L1-L3 levels with extension superiorly into the thoracic spine and right unilateral pedicle screw at T11. No evidence of prior fracture. Conus: The conus is grossly normal in signal intensity characteristics but evaluation is quite limited by extensive artifact from the hardware. Paraspinal soft tissues: Paraspinal soft tissues are within normal limits. Lower thoracic spine: Visualized lower thoracic spinal canal and foramina appear patent within the constraints of the artifact. L1-L2: Canal and foramina are patent. L2-L3: Canal and foramina are patent at the level of the disc space. 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 Account for slight impingement of the thecal sac but this is likely exaggerated due to inherent artifact on MRI. The foramina widely patent. L3-L4: Canal and foramina are patent at the level of the disc space. There appears to be mild to moderate canal stenosis at the level of the middle third of the vertebral body by the anomalous placement of the pedicle screws but this is likely exaggerated due to inherent artifact on MRI. The foramina are widely patent. L4-L5: Small shallow central disc protrusion confined to the anterior epidural fat. No impact on the thecal sac. Neural foramina remain patent. L5-S1: Small shallow central disc protrusion confined to the anterior epidural fat. No impact on the thecal sac. Neural foramina remain patent. Sacrum and iliac wings: The visualized sacrum and iliac wings are within normal limits. 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 Chronic progressive low back pain and bilateral lower extremity numbness and paresthesias. TECHNIQUE: Routine lumbosacral spine MR protocol without gadolinium. MQ: [id number]_3 COMPARISON: 05/24/2023 RESULT: Counting reference: Lumbosacral junction. For the purposes of this report, L4-5 is considered the level of the iliac crest and assume there are 5 lumbar-type vertebrae. Anatomic variant: None. Localizer images: No additional findings. Alignment: Alignment is anatomic. Mild disc space narrowing is noted at L1-2 through L3-4 and at the L5-S1 level. Bone marrow signal/fracture: No evidence of pathologic marrow replacement. Prominent susceptibility artifact compatible bilateral pedicle screws and interconnecting rods at the L1-L3 levels with extension superiorly into the thoracic spine and right unilateral pedicle screw at T11. No evidence of prior fracture. Conus: The conus is grossly normal in signal intensity characteristics but evaluation is quite limited by extensive artifact from the hardware. Paraspinal soft tissues: Paraspinal soft tissues are within normal limits. Lower thoracic spine: Visualized lower thoracic spinal canal and foramina appear patent within the constraints of the artifact. L1-L2: Canal and foramina are patent. L2-L3: Canal and foramina are patent at the level of the disc space. 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 Account for slight impingement of the thecal sac but this is likely exaggerated due to inherent artifact on MRI. The foramina widely patent. L3-L4: Canal and foramina are patent at the level of the disc space. There appears to be mild to moderate canal stenosis at the level of the middle third of the vertebral body by the anomalous placement of the pedicle screws but this is likely exaggerated due to inherent artifact on MRI. The foramina are widely patent. L4-L5: Small shallow central disc protrusion confined to the anterior epidural fat. No impact on the thecal sac. Neural foramina remain patent. L5-S1: Small shallow central disc protrusion confined to the anterior epidural fat. No impact on the thecal sac. Neural foramina remain patent. Sacrum and iliac wings: The visualized sacrum and iliac wings are within normal limits. 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 Anatomic Lumbar Variant: None. L4-5 is considered the level of the iliac crest and assume there are 5 lumbar-type vertebrae. Checkerer Hand: PSCB Transcribe Date/Time: May 24 2023 10:49A Dictated by : SONI THOMAS MD This examination was interpreted and the report reviewed and electronically signed by: SONI THOMAS MD on May 24 2023 10:57AM EST [facility]Rad[facility] Study observation (narrative)[facility] Lumbar spine WO contrastOrdered By: [facility] Provider on [id number] ClinicTransfer Inon [id number] [id number]#1.00CD:127 NormalThe Surgical Hospital At SouthwoodsXR SCOLIOSIS PA STAND/LAT 2Von 04-24-2023 [facility] for Release of Medical Recordson [id number] for Release of Medical [id number]#1.00CD:127Normal [facility] BaltimoreFasaint luke's hospital Medicine Office/Clinic Noteon [id number] Medicine Office/Clinic NoteChief Complaint Est Care HPI Staff Pt is here today today to est care . Pt is c/o a wart on her right knee, noticed it a couple months ago. States it is not really causingher issues but she does not like to look at it. Neurosurgery referral placed for her spine. Hx of scoliosis, rods were placed at the age of 17. - She has an appt next month, she is unsure of who it is with or where they are located. The standard range for ages 18 and older is >=18.5 and < 25 kg/m2. Your BMI today was above this range, this falls in the overweight to obese category and there are medical benefits to weight loss. We can offer counselling, referral, and/or medical support in addressing this problem. Your BMIand weight management will be followed at subsequent visits. History of Present Illness Yaneth Dennis is a 22-year-old female who presents today with her mother to establish care. She previously saw Dr. Hines at the office, who is no longer with her organization. She had scoliosis rods placed at the age of [age] years old. She had new onset back pain several months ago. She was seen atthe ER and CT showed that a stephanie was no longer in position and was in a muscle. She was referred to a neurosurgeon and has an appointment next month because of these issues. She does have chronic numbness in some of her upper legs. She was stung by a bee on the right knee a couple of days ago and itis still swelled up. It does not really bother her though. She is also complaining of a wart on herright knee. She is on some mood medications including Lexapro and hydroxyzine for depression and anxiety. She considers this stable. No recent asthma exacerbations. She has a history of asthma, but she is not on inhalers. The referral for neurosurgery went to [facility]. She states that she has MyChart but her referral has not been set up through [facility]. Her surgery was done at [facility] when she was 17 years old. She reports having a bee sting and a wart on her right knee. The patient reports that her depression is not controlled and her has not improved. She attributes it to what happened to her uncle and father especially with her uncle who of cancer. She feels a little bit down. She currently takes 10 mg Lexapro with benefit, but she would like to increase its dosage since she is feeling slightly overwhelmed. She notes that she was taking Lexapro for a few months but less than 1 year. The patient denies any thoughts of hurting herself. She states that she got tattoos instead. She used to do self- harm but notes that she stopped doing it on the day her daughter was born. Her daughter is now 3 years old and considers her as her lifesaver. The patient would like to know what to do next as she is filing for Social Security Disability Benefits. She states that the Social Security does not have any records. Family history: Her uncle and paternal grandparents of cancer. Review of Systems PHQ Score Initial Depression Screen Score: 0 All other systems are negative except as stated in the HPI. Physical Exam Vitals & Measurements HR: 82(Peripheral) BP: 124/83 SpO2: 99% HT: 69 in HT: 175.3 cm WT: 93.3 kg WT: 205.26 lb BMI: 30.36 General: Well developed, well nourished, in no acute distress Lungs: Normal respiratory effort and clear to auscultation Cardio: Regular rate and rhythm, normal S1 and S2, no murmur, no rub Neurologic: Grossly normal Lymph Nodes: No cervical adenopathy, nodes normal Mental Status: Alert and oriented x3. Normal mood and affect Skin: Keratotic papule with peripheral hyperpigmentation on the right patella. This was scored witha scalpel and/or cleansed with Betadine first and scrubbed with a scalpel and Verruca-Freeze applied. Assessment/Plan 1. Moderate major depression (F32.1: Major depressive disorder, single episode, moderate) Not currently controlled at current dose of Lexapro given all she is going on life stressor son and her new found possible need for back surgery. Increase Lexapro to 20 mg. Defers counseling referral at this time. Follow up in 6 weeks. 2. 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 Defers counseling or psychiatry referral at this time. 3. BMI 30.0-30.9,adult (Z68.30: Body mass index [BMI] 30.0-30.9, adult) Discussed health risks of obesity. Encouraged a healthy balanced diet low in sugar, fat, carbs. Encouraged exercise regimen 4. Wart (B07.9: Viral wart, unspecified) Verruca-Freeze is applied. Discussed that it might look worse before it gets better. May need to return for another application. Portions of this record may have been created with voice recognition artificial intelligence software, specifically [employer], [employer] and or [employer]. Substitutions may have occurred with voice recognition and artificial intelligence software. ATTESTATION: Documentation servi (more content not included)...[facility] HospitalComment on above:Result Comment: Electronically Signed By: Bianka WOODS CNP.br\Date and Time Signed: 04/12/23 12:12 EDT\.br\Electronically Co- Signed By: José Bertrand\.br\Date and Time Co-Signed: 04/12/23 11:34 EDT Ambulatory Visit Summaryon 45-49-0626Tsvrxjporx Visit Summary YANETH DENNIS :2000 Visit Date:04/11/2023 Ambulatory Visit Instructions Your Diagnosis Moderate major depression Anxiety disorder due to medical condition BMI 30.0-30.9,adult Wart Your Care Team Attending Physician - Bianka WOODS CNP Primary Care Physician - Bianka WOODS CNP This Is Your Medications List escitalopram (Lexapro 20 mg Tab) Contact prescribing physician if questions or concerns cyclobenzaprine (cyclobenzaprine 10 mg Tab) ethinyl estradiol-norethindrone (10/07 oral tablet) hydrOXYzine (hydrOXYzine hydrochloride 25 mg Tab) naproxen (naproxen 500 mg Tab) Procedures Performed Tonsillectomy, tubes in ears. Discharge Vitals Heart Rate (Peripheral) 82 Blood Pressure 124/83 Height 175.3 cm Height 69 in Weight 93.3 kg Weight 205.26 lb BMI 30.36 What to do next Scheduled Follow-Up Appointments Monday 4:00 PM EDT With: Bianka WOODS CNP Where: [facility] Educationon 15-68-5504Zswoxnh EducationGastroenterology Obesity, Adult Obesity is having too much body fat. Being obese means that your weight is more than what is healthy for you. BMI (body mass index) is a number that explains how much body fat you have. If you have a BMI of 30or more, you are obese. Obesity can cause serious health problems, such as: ? Stroke. ? Coronary artery disease (CAD). ? Type 2 diabetes. ? Some types of cancer. ? High blood pressure (hypertension). ? High cholesterol. ? Gallbladder stones. Obesity can also contribute to: ? Osteoarthritis. ? Sleep apnea. ? Infertility problems. What are the causes? ? Eating meals each day that are high in calories, sugar, and fat. ? Drinking a lot of drinks that have sugar in them. ? Being born with genes that may make you more likely to become obese. ? Having a medical condition that causes obesity. ? Taking certain medicines. ? Sitting a lot (having a sedentary lifestyle). ? Not getting enough sleep. What increases the risk? ? Having a family history of obesity. ? Living in an area with limited access to: ? [place], recreation centers, or sidewalks. ? Healthy food choices, such as grocery stores and [employer]. What are the signs or symptoms? The main sign is having too much body fat. How is this treated? Treatment for this condition often includes changing your lifestyle. Treatment may include: ? Changing your diet. This may include making a healthy meal plan. ? Exercise. This may include activity that causes your heart to beat faster (aerobic exercise) and strength training. Work with your doctor to design a program that works for you. ? Medicine to help you lose weight. This may be used if you are not able to lose one pound a week after 6 weeks of healthy eating and more exercise. ? Treating conditions that cause the obesity. ? Surgery. Options may include gastric banding and gastric bypass. This may be done if: ? Other treatments have not helped to improve your condition. ? You have a BMI of 40 or higher. ? You have life-threatening health problems related to obesity. Follow these instructions at home: Eating and drinking ? Follow advice from your doctor about what to eat and drink. Your doctor may tell you to: ? Limit fast food, sweets, and processed snack foods. ? Choose low-fat options. For example, choose low-fat milk instead of whole milk. ? Eat five or more servings of fruits or vegetables each day. ? Eat at home more often. This gives you more control over what you eat. ? Choose healthy foods when you eat out. ? Learn to read food labels. This will help you learn how much food is in one serving. ? Keep low-fat snacks available. ? Avoid drinks that have a lot of sugar in them. These include soda, fruit juice, iced tea with sugar, and flavored milk. ? Drink enough water to keep your pee (urine) pale yellow. ? Do not go on fad diets. Physical activity ? Exercise often, as told by your doctor. Most adults should get up to 150 minutes of moderate-intensity exercise every week.Ask your doctor: ? What types of exercise are safe for you. ? How often you should exercise. ? Warm up and stretch before being active. ? Do slow stretching after being active (cool down). ? Rest between times of being active. Lifestyle ? Work with your doctor and a food expert (dietitian) to set a weight-loss goal that is best for you. ? Limit your screen time. ? Find ways to reward yourself that do not involve food. ? Do not drink alcohol if: ? Your doctor tells you not to drink. ? You are , may be , or are planning to become . ? If you drink alcohol: ? Limit how much you have to: ? 0?1 drink a day for women. ? 0?2 drinks a day for men. ? Know how much alcohol is in your drink. In the [place] one drink equals one 12 oz bottle of beer (355 mL), one 5 oz glass of wine (148 mL), or one 1? oz glass of hard liquor (44 mL). General instructions ? Keep a weight-loss journal. This can help you keep track of: ? The food that you eat. ? How much exercise you get. ? Take qgwq-rft-qvityrs and prescription medicines only as told by your doctor. ? Take vitamins and supplements only as told by your doctor. ? Think about joining a support group. ? Pay attention to your mental health as obesity can lead to depression or self esteem issues. ? Keep all follow-up visits. Contact a doctor if: ? You cannot meet your weight-loss goal after you have changed your diet and lifestyle for 6 weeks. ? You are having trouble breathing. Summary ? Obesity is having too much body fat. ? Being obese means that your weight is more than what is healthy for you. ? Work with your doctor to set a weight-loss goal. ? Get regular exercise as told by your doctor. This information is not intended to replace advice given to you by your health care provider. Make sure you discuss any questions you have with yo (more content not included)...NormalThe Surgical Hospital At SouthwoodsCHEMISTRYOrdered By: SYSTEM SYSTEM on [id number] [Mass/Vol]4.3 g/dLNormal3.3 - 5.0 gm/dLFTMC RemisolAlbumin/Globulin [Mass ratio]1.2 {ratio}Normal1.1 - 2.2[facility] RemisolALP [Catalytic activity/Vol]64 [iU]/aPnqpbz86 - 98 Int._Unit/LFTMC RemisolALT No additional P-5'-P [Catalytic activity/Vol]17 [iU]/dNormal6 - 46 Int._Unit/LFTMC RemisolAnion gap [Moles/Vol]11 mmol/LNormal6 - 16 mEq/LFTMC RemisolAST [Catalytic activity/Vol]18 [iU]/dNormal5 - 43 Int._Unit/LFTMC RemisolBilirubin [Mass/Vol]0.8 mg/dLNormal0.0 - 1.1 mg/dLFT RemisolCalcium [Mass/Vol]9.1 mg/dL Normal8.9 - 11.1 mg/dLFT RemisolChloride [Moles/Vol]106 mmol/YCyphcu882 - 111 mmol/LFTMC RemisolCholesterol [Mass/Vol]135 mg/fNEolrbe246 - 200 mg/dLFTMC RemisolCholesterol in HDL [Mass/Vol]52 mg/dLInvalid Interpretation CodeFTMC RemisolCholesterol in LDL [Mass/Vol]64 mg/dLNormal<=129mg/dLFTMC Remisol Cholesterol in VLDL [Mass/Vol]18 mg/dLNormal7 - 40 mg/dLFT RemisolCO2 [Moles/Vol]23 mmol/JReikmd09 - 31 mmol/LFTMC RemisolCreatinine [Mass/Vol]0.7 mg/dLNormal0.5 - 1.3 mg/dLFT RemisolGFR/1.73 sq M.predicted among blacks MDRD (S/P/Bld) [Vol rate/Area]mL/min/1.73 m7Hqqmed>=59mL/min/1.73 m2FT Chem S GFR/1.73 sq M.predicted among non-blacks MDRD (S/P/Bld) [Vol rate/Area] mL/min/1.73 e1Wiixal>=59mL/min/1.73 m2[facility] Chem SGlobulin (S) [Mass/Vol]3.5 g/dL Normal1.4 - 4.0 gm/dLFT RemisolGlucose [Mass/Vol]85 mg/aBZezkqn07 - 199 mg/dL FT RemisolPotassium [Moles/Vol]3.5 mmol/LNormal3.5 - 5.3 mmol/LFTMC Remisol Protein [Mass/Vol]7.8 g/dLNormal6.0 - 7.8 gm/dLFTMC RemisolSodium [Moles/Vol]136 mmol/YOnijii693 - 145 mmol/LFTMC RemisolTriglyceride [Mass/Vol]89 mg/dLNormal <=149mg/dLFTMC RemisolTSH Qn0.88 m[IU]/LNormal0.34 - 5.60 mcIU/mLFTMC Remisol Urea nitrogen [Mass/Vol]12 mg/dLNormal5 - 21 mg/dLFTMC RemisolUrea nitrogen/Creatinine [Mass ratio]17 mg/emTlkoiw94 - 20FT[facility] RemisolHEMATOLOGY Ordered By: SYSTEM SYSTEM on [id number]/100 WBC (Bld)0.7 %Normal0.0 - 2.0 %[facility] HemeAutoSSBasophils/Leukocytes Auto (Bld) [Pure # fraction]0.1 E9/L Normal0.0 - 0.2 E9/LFTMC HemeAutoSSEosinophils/100 WBC (Bld)1.0 %Normal0.0 - 8.0 %[facility] HemeAutoSSEosinophils/Leukocytes Auto (Bld) [Pure # fraction]0.1 E9/L Normal0.0 - 0.5 E9/LFTMC HemeAutoSSLymphocytes/100 WBC (Bld)28.3 %Qnhbou20.0 - 50.0 %[facility] HemeAutoSSLymphocytes/Leukocytes Auto (Bld) [Pure # fraction]2.4 E9/L Normal1.0 - 4.0 E9/LFTMC HemeAutoSSMonocytes/100 WBC (Bld)6.8 %Normal4.0 - 14.0 %[facility] HemeAutoSSMonocytes/Leukocytes Auto (Bld) [Pure # fraction]0.6 E9/LNormal 0.2 - 1.0 E9/LFTMC HemeAutoSSNeutrophils/100 WBC (Bld)63.2 %Whfgej98.0 - 75.0 % [facility] HemeAutoSSNeutrophils/Leukocytes Auto (Bld) [Pure # fraction]5.4 E9/LNormal 2.0 - 7.5 E9/LFTMC HemeAutoSSHEMATOLOGYOrdered By: Willa Merrill on 10-10-2022 Erythrocyte distribution width (RBC) [Ratio]13.6 %Gsqzeo70.9 - 14.2 %[facility] HemeAutoSSHematocrit (Bld) [Volume fraction]42.4 %Fybdoi11.0 - 46.0 %[facility] HemeAutoSSHemoglobin (Bld) [Mass/Vol]13.7 g/hIJokfgy07.0 - 16.0 gm/dLFTMC HemeAutoSSMCH (RBC) [Entitic mass]29.5 wcZfozna81.0 - 34.0 pgFTMC HemeAutoSSMCHC (RBC) [Mass/Vol]32.4 g/rDSkwnqe61.4 - 36.0 gm/dLFTMC HemeAutoSSMCV (RBC) [Entitic vol]91.1 oQBdcdfe17.0 - 100.0 fLFTMC HemeAutoSSPlatelet mean volume (Bld) [Entitic vol]8.8 fLNormal6.4 - 10.8 fLFTMC HemeAutoSSPlatelets (Bld) [#/Vol]245.0 E9/TNuvpoo116.0 - 500.0 E9/LFTMC HemeAutoSSRBC (Bld) [#/Vol]4.7 E12/LNormal4.3 - 5.9 E12/LFTMC HemeAutoSSWBC corrected for nucl RBC Auto (Bld) [#/Vol]8.5 E9/LNormal4.0 - 11.0 E9/LFTMC HemeAutoSSCBC AUTO DIFFon 01-25-2022 BASO #0.1 103/ulNormal0.0-0.1The [facility] HospitalComment on above:Performed By: #### PT, PTT #### [facility] [address] [address] [address] Sage Northsophils/100 WBC (Bld)0.7 %Normal0.2-2.0[facility] Comment on above:Performed By: #### PT, PTT #### [facility] [address] [place] [address] Dr. Sage Noonan #0.1 103/ulNormal0.0-0.7The [facility] HospitalComment on above: Performed By: #### PT, PTT #### [facility] [address] [place] [address] Dr. Sage Liuosinophils/100 WBC (Bld)0.9 %Normal0.9-7.0[facility] Comment on above:Performed By: #### PT, PTT #### [facility] [address] [place] [address] Dr. Sage Liurythrocyte distribution width (RBC) [Ratio]13.7 %Sotpll14.0-15.0 The [facility] HospitalComment on above:Performed By: #### PT, PTT #### [facility] [address] [place] [address] Dr. Sage WilksHematocrit (Bld) [Volume fraction]41.1 %Gskoag32.0-48.0The [facility] HospitalComment on above:Performed By: #### PT, PTT #### [facility] [address] [place] [address] Dr. Sage WilksHemoglobin (Bld) [Mass/Vol]13.1 g/wUYdbiti75.0-16.0The [facility] on above:Performed By: #### PT, PTT #### [facility] [address] [place] [address] Dr. Sage Oquendo #0.02 10e3/ulNormal0.00-0.03The [facility] HospitalComment on above:Performed By: #### PT, PTT #### [facility] [address] [place] [address] Dr. Sage Oquendo %0.3 %Normal0.0-0.5The [facility]ment on above: Performed By: #### PT, PTT #### [facility] [address] [place] [address] Dr. Sage Lanier #2.3 103/ulNormal1.2-3.8The [facility] HospitalComment on above:Performed By: #### PT, PTT #### [facility] [address] [place] [address] Dr. Sage Walkermphocytes/100 WBC (Bld)29.3 %Odwtni97.5-60.0The [facility] HospitalComment on above:Performed By: #### PT, PTT #### [facility] [address] [place] [address] Dr. Sage Rodas DIFF REQNONormalThe [facility] HospitalComment on above: Performed By: #### PT, PTT #### [facility] [address] [place] [address] Dr. Sage Interiano (RBC) [Entitic mass]28.8 vlKxggcq62.7-34.0The [facility] HospitalComment on above:Performed By: #### PT, PTT #### [facility] [address] [place] [address] Dr. Sage Interiano (RBC) [Mass/Vol]31.9 g/uEGxdhzn98.9-35.2The [facility] HospitalComment on above:Performed By: #### PT, PTT #### [facility] [address] [place] [address] Dr. Sage Avila (RBC) [Entitic vol]90.3 xLGujyqc77.0-99.0The [facility] HospitalComment on above:Performed By: #### PT, PTT #### [facility] [address] [place] [address] Dr. Sage Kee #0.5 103/ulNormal0.3-0.8The [facility] HospitalComment on above:Performed By: #### PT, PTT #### [facility] [address] [place] [address] Dr. Sage Mcdonaldocytes/100 WBC (Bld)6.6 %Normal1.7-12.0The [facility] on above:Performed By: #### PT, PTT #### [facility] [address] [place] [address] Dr. Sage Hill #4.8 103/ulNormal1.4-6.5The [facility] HospitalComment on above:Performed By: #### PT, PTT #### [facility] [address] [place] [address] Dr. Sage Watsonutrophils/100 WBC (Bld)62.2 %Kbkysw92.0-75.0The [facility] HospitalComment on above:Performed By: #### PT, PTT #### [facility] [address] [place] [address] Dr. Sage Myles mean volume (Bld) [Entitic vol]10.2 fLNormal9.5-13.5The [facility] HospitalComment on above:Performed By: #### PT, PTT #### [facility] [address] [place] [address] Dr. Sage TatumT239 103/mhMovvzq878-925Ukq [facility] HospitalComment on above: Performed By: #### PT, PTT #### [facility] [address] [place] [address] Dr. Sage WilksRBC4.55 106/ulNormal4.20-5.40The [facility] HospitalComment on above:Performed By: #### PT, PTT #### [facility] [address] [place] [address] Dr. Sage WilksWBC7.7 103/ulNormal4.0-11.0The [facility] HospitalComment on above: Performed By: #### PT, PTT #### [facility] [address] [place] [address] Dr. Sage WilksPREJannette QUANT HCGon [id number] QUANT<1NormalThe [facility] Comment on above:Performed By: #### PREGQNT, TSH #### [facility] [address] [place] [address] Dr. Sage Forte RANGESEE BELOWNormalThLake County Memorial Hospital - WestComment on above: Result Comment: 5-50 0-1 WEEK 40-300 1-2 WEEKS 100-1,000 2-3 WEEKS 500-6,000 3-4 WEEKS 5,000-200,000 1-2 MONTHS 10,000-100,000 2-3 MONTHS 3,000-50,000 2ND TRIMESTER 1,000-50,000 3RD TRIMESTERPerformed By: #### PREGQNT, TSH #### [facility] [address] [place] [address] Dr. Sage Bo 18-30-1957URR Coag (PPP) [Relative time]0.96 {INR} NormalThe [facility] HospitalComment on above:Performed By: #### PT, PTT #### [facility] [address] [place] [address] [facility] HospitalComment on above:Result Comment: DESIRED INR: 2.0 - 3.0 CONDITIONS NOT LISTED BELOW 2.5 - 3.5 FOR PROSTHETIC HEART VALVE REPLACEMENT 2.5 - 3.5 RECURRENT THROMBOSIS Performed By: #### PT, PTT #### [facility] [address] [place] [address] Dr. Sage Max Coag (PPP) [Time]10.4 sNormal9.0-11.6[facility] Comment on above:Performed By: #### PT, PTT #### [facility] [address] [place] [address] Dr. Sage Akhtar [id number] Coag (Bld) [Time]27.6 lKcryrt55.3-36.2[facility] HospitalComment on above:Performed By: #### PT, PTT #### [facility] [address] [place] [address] Dr. Sage Singh [id number] uIU/mLNormal0.358-3.740[facility] HospitalComselect [facility] on above:Performed By: #### PREGQNT, TSH #### [facility] [address] [place] [address] Dr. Sage Warren [facility] SpringfieldComment on above: Result Comment: <0.34 UIU/ml HYPERTHYROID 0.34-5.60 UIU/ml EUTHYROID >5.60 UIU/ml HYPOTHYROIDPerformed By: #### PREGQNT, TSH #### [facility] [address] [place] [address] Dr. Sage WilksDEACONESS HEALTH SYSTEM W MANUAL DIFFon [id number]Khj [facility] HospitalComment on above:Performed By: #### CBC #### [facility] [address] [place] [address] Miguel Ángel KarenATYPICAL LYMPH #NormalUc Medical Center HospitalComment on above: Performed By: #### CBC #### [facility] [address] [place] [address] Miguel Ángel KarenATYPICAL LYMPH %NormalBarnesville HospitalComment on above: Performed By: #### CBC #### [facility] [address] [place] [address] Miguel Ángel KarenBAND #0.3 103/ulNormal0.0-0.3The [facility] HospitalComment on above: Performed By: #### CBC #### [facility] [address] [place] [address] Miguel Ángel KarenBAND %2 %Normal0-5The [facility] HospitalComment on above:Performed By: #### CBC #### [facility] [address] [place] [address] Miguel Ángel KarenBASOM #0.00 103/ulNormal0.00-0.10The [facility] HospitalComment on above:Performed By: #### CBC #### [facility] [address] [place] [address] Miguel Ángel KarenBASOM %0.0 %Critically low0.2-2.0[facility] HospitalComment on above:Performed By: #### CBC #### [facility] [address] [place] [address] Miguel Ángel KarenBLAST #NormalBarnesville HospitalComment on above:Performed By: #### CBC #### [facility] [address] [place] [address] Miguel Ángel KarenBLAST %NormalBarnesville HospitalComment on above:Performed By: #### CBC #### [facility] [address] [place] [address] Miguel Ángel KarenCORRECTED WBCNormal4.0-11.0The [facility] HospitalComselect [facility] on above: Performed By: #### CBC #### [facility] [address] [place] [address] Miguel Ángel KarenEOS #0.42 103/ulNormal0.00-0.70The [facility] HospitalComment on above:Performed By: #### CBC #### [facility] [address] [place] [address] Miguel Ángel KarenEOS%3.0 %Normal0.9-7.0The [facility] HospitalCom[facility] on above: Performed By: #### CBC #### [facility] [address] [place] [address] Miguel Ángel KarenGIANT PLATELETSSEENNormalThe [facility] HospitalComselect specialty hospital-[facility] on above: Performed By: #### CBC #### [facility] [address] [place] [address] Miguel Ángel LabrjXNE50.3 %Critically low36.0-48.0The [facility] on above:Performed By: #### CBC #### [facility] [address] [place] [address] Miguel Ángel OlxypRGD93.5 g/dlCritically low12.0-16.0The [facility] on above:Performed By: #### CBC #### [facility] [address] [place] [address] Miguel Ángel KarenLYMPHM #3.06 103/ulNormal1.20-3.80The [facility] HospitalComselect [facility] on above:Performed By: #### CBC #### [facility] [address] [place] [address] Miguel Ángel KarenLYMPHM%22.0 %Fbcfll22.5-60.0The [facility] on above: Performed By: #### CBC #### [facility] [address] [place] [address] Miguel Ángel DzrzfLIT35.2 eqAkqumh72.7-34.0The [facility] HospitalComment on above: Performed By: #### CBC #### [facility] [address] [place] [address] Miguel Ángel XmnndTYVY26.6 g/ozLsxoek39.9-35.2The [facility] HospitalComment on above: Performed By: #### CBC #### [facility] [address] [place] [address] Miguel Ángel SrgczGCR95.6 lDWigslg56.0-99.0The [facility] HospitalComment on above: Performed By: #### CBC #### [facility] [address] [place] [address] Miguel Ángel KarenMETAMYELOCYTE #NormalThe [facility] HospitalComment on above:Performed By: #### CBC #### [facility] [address] [place] [address] Miguel Ángel KarenMETAMYELOCYTE %NormalThe [facility] HospitalComment on above:Performed By: #### CBC #### [facility] [address] [place] [address] Miguel Ángel KarenMONOM#0.97 103/ulCritically high0.30-0.80The [facility] on above:Performed By: #### CBC #### [facility] [address] [place] [address] Miguel Ángel KarenMONOM%7.0 %Normal1.7-12.0The [facility] Hospitalment on above: Performed By: #### CBC #### [facility] [address] [place] [address] Miguel Ángel KarenMPV9.8 fLNormal9.5-13.5The [facility] HospitalComment on above: Performed By: #### CBC #### [facility] [address] [place] [address] Miguel Ángel KarenMYELOCYTE #NormalThe [facility] Hospitalment on above:Performed By: #### CBC #### [facility] [address] [place] [address] Miguel Ángel KarenMYELOCYTE %NormalThe [facility] HospitalComment on above:Performed By: #### CBC #### [facility] [address] [place] [address] Miguel Ángel WilsonenNRBCNormalThe [facility] HospitalComment on above:Performed By: #### CBC #### [facility] [address] [place] [address] Miguel Ángel SarmientoPLT176 103/bxOinusu703-080Gny [facility] HospitalComment on above: Performed By: #### CBC #### [facility] [address] [place] [address] Miguel Ángel KarenRBC3.94 106/ulCritically low4.20-5.40The [facility] HospitalComment on above:Performed By: #### CBC #### [facility] [address] [place] [address] Miguel Ángel WilsonenRDW15.7 %Critically high11.0-15.0The [facility] HospitalComment on above:Performed By: #### CBC #### [facility] [address] [place] [address] Miguel Ángel CalabreseG #9.17 103/ulCritically high1.40-6.50The [facility] HospitalComment on above:Performed By: #### CBC #### [facility] [address] [place] [address] Miguel Ángel CalabreseG %66.0 %Jtdvpe90.0-75.0[facility] HospitalComment on above: Performed By: #### CBC #### [facility] [address] [place] [address] Miguel Ángel WilsonenWBC13.9 103/ulCritically high4.0-11.0[facility] HospitalComment on above:Performed By: #### CBC #### [facility] [address] [place] [address] Miguel Ángel WilsonenCT ABD/PELV W CONon [id number] ABD/PELV W CONEXAMINATION: CT ABD/PELV W CON HISTORY: UNSPECIFIED ABDOMINAL PAIN ; right lower quadrant pain; vaginal delivery 2 days ago COMPARISON: No relevant comparison available. TECHNIQUE: Axial, Coronal, and Sagittal images were created with IV contrast. Dose reduction techniques were achieved by using automated exposure control and/or adjustment of mA and/or kV according to patient size and/or use of iterative reconstruction technique. FINDINGS: LUNG BASES: No visible pulmonary or pleural disease. LIVER: No enlargement, atrophy, abnormal density, or significant focal lesion. BILIARY: No dilatation or calcification. PANCREAS: No lesion, fluid collection, ductal dilatation, or atrophy. SPLEEN: No enlargement or focal lesion. ADRENALS: No mass or enlargement. KIDNEYS: Mild right hydronephrosis without appreciable mass or stones. BOWEL/MESENTERY: No visible mass, obstruction, or bowel wall thickening. Normal appendix. AORTA/VASCULAR: No aneurysm or dissection. RETROPERITONEUM: No mass or adenopathy. LYMPH NODES: No adenopathy. URINARY BLADDER: No visible focal wall thickening, lesion, or calculus. PELVIC ORGANS: Enlarged, thick-walled uterus consistent with state. ABDOMINAL WALL: No mass or hernia. BONES: Posterior mechanical fusion of T8-L3 via bilateral pedicle screws and rods. OTHER: Negative. IMPRESSION: 1. Normal appendix. 2. Mild right hydronephrosis, suspected secondary to compression of the ureter between the enlarged uterus and psoas muscle. 3. Enlarged, thick-walled uterus consistent with state. 4. No additional acute findings to account the patient's symptoms. Electronically authenticated by: HUBER BARAKAT Date: 2021-04-15 07:[address] [place], [place] [address]PROF 14(COMP METB)on [id number] [Mass/Vol]2.2 g/dL Critically low3.5-5.0The [facility] Hospitalment on above:Performed By: #### PT, PTT #### [facility] [address] [place] [address] Dr. Sage WilksAlbumin/Globulin [Mass ratio]0.6 {ratio}NormalThe [facility] on above:Performed By: #### PT, PTT #### [facility] [address] [place] [address] Dr. Sage Christy [Catalytic activity/Vol]122 U/HOywjej27-840Gco [facility] on above:Performed By: #### PT, PTT #### [facility] [address] [place] [address] Dr. Yilan ChangALT [Catalytic activity/Vol]11 U/LNormal9-52The [facility] Comment on above:Performed By: #### PT, PTT #### [facility] [address] [place] [address] Dr. Sage WilksAnion gap [Moles/Vol]11.5 mmol/LNormalThe [facility] Comment on above:Performed By: #### PT, PTT #### [facility] [address] [place] [address] Dr. Sage WilksAST [Catalytic activity/Vol]14 U/OWyihji97-11Ghf [facility] HospitalComment on above:Performed By: #### PT, PTT #### [facility] [address] [place] [address] Dr. Sage WilksBilirubin [Mass/Vol]0.1 mg/dLCritically low0.2-1.3The [facility] HospitalComment on above:Performed By: #### PT, PTT #### [facility] [address] [place] [address] Dr. Sage WilksCalcium [Mass/Vol]8.2 mg/dLCritically low8.4-10.2The [facility] HospitalComment on above:Performed By: #### PT, PTT #### [facility] [address] [place] [address] Dr. Sage WilksChloride [Moles/Vol]107 mmol/CXjtdve67-095DftBarnesville Hospital Comment on above:Performed By: #### PT, PTT #### [facility] [address] [place] [address] Dr. Sage WilksCO2 [Moles/Vol]24.3 mmol/LErtfom47.0-30.0The [facility] Comment on above:Performed By: #### PT, PTT #### [facility] [address] [place] [address] Dr. Sage WilksCreatinine [Mass/Vol]0.61 mg/dLNormal0.52-1.04The [facility] HospitalComment on above:Performed By: #### PT, PTT #### [facility] [address] [place] [address] Dr. Sage LiuGFR-AF BAHRAINI>60Normal>=60The [facility] HospitalComment on above:Performed By: #### PT, PTT #### [facility] [address] [place] [address] Dr. Sage LiuGFR-NON AF BAHRAINI>60Normal>=60The [facility] HospitalComment on above:Performed By: #### PT, PTT #### [facility] [address] [place] [address] Dr. Sage WilksGlobulin (S) [Mass/Vol]3.6 g/dLNormalThe [facility] HospitalComment on above:Performed By: #### PT, PTT #### [facility] [address] [place] [address] Dr. Sage WilksGlucose [Mass/Vol]91 mg/tUXfpqrp76-141ItjBarnesville Hospital Comment on above:Performed By: #### PT, PTT #### [facility] [address] [place] [address] Dr. Sage WilksPotassium [Moles/Vol]3.8 mmol/LNormal3.4-5.0[facility] Comment on above:Performed By: #### PT, PTT #### [facility] [address] [place] [address] Dr. Sage WilksProtein [Mass/Vol]5.8 g/dLCritically low6.1-8.2[facility] HospitalComment on above:Performed By: #### PT, PTT #### [facility] [address] [place] [address] Dr. Sage WilksSodium [Moles/Vol]139 mmol/XJpywxc976-251Xpp [facility] Comment on above:Performed By: #### PT, PTT #### [facility] [address] [place] [address] Dr. Sage WilksUrea nitrogen [Mass/Vol]12.0 mg/dLNormal7.0-17.0The [facility] HospitalComment on above:Performed By: #### PT, PTT #### [facility] [address] [place] [address] Dr. Sage WilksUrea nitrogen/Creatinine [Mass ratio]19.7 mg/mgNormalThe [facility] HospitalComment on above:Performed By: #### PT, PTT #### [facility] [address] [place] [address] Dr. Sage WilksRPR QUANTon [id number] Plasma Reagin, QuantNon-Reactive NormalNonRea<1:1The [facility] HospitalComment on above:Performed By: #### PT, PTT #### [facility] [address] [place] [address] Dr. Sage WilksASYMPTOMATIC COVID-19 ANTIGENon [id number] StatementSEE BELOW NormalThe [facility] on above:Result Comment: This test has not been FDA cleared or approved, but has been authorized by the FDA under an Emergency Use Authorization (EUA) for use by authorized laboratories certified under CLIA that meet the requirements to perform moderate or high complexity testing. This test has been authorized only for the detection of proteins from SARS-CoV-2, not for any other viruses or pathogens. The emergency use of this test is authorized for the duration of the declaration that circumstances exist justifying the authorization of emergency use of in vitro diagnostic tests for detection and/or diagnosis of Covid-19 under section 564(b)(1) of the Act, 21 U.S.C. 360bbb-3(b)(1), unless the declaration is terminated or authorization is revoked sooner.Performed By: #### CVDAGA #### [facility] [address] [place] [address] Miguel Ángel GarciaOdateHQBB-DsP-8 (COVID-19) RNA JENS+probe Ql (Unsp spec)NegativeNormal NEGATIVEThe [facility] on above:Result Comment: Negative results are presumptive. They do not preclude infection and should not be used as the sole basis for treatment decisions. Additional confirmatory testing by a molecular method should be considered.Performed By: #### CVDAGA #### [facility] [address] [place] [address] Miguel Ángel WilsonenCBC AUTO DIFFon 06-06-2598UNRD #0.1 103/ulNormal0.0-0.1The Mercy HospitalComment on above:Performed By: #### PT, PTT #### [facility] [address] [place] [address] Dr. Sage WilksBasophils/100 WBC (Bld)0.3 %Normal0.2-2.0[facility] Comment on above:Performed By: #### PT, PTT #### [facility] [address] [place] [address] Dr. Sage Noonan #0.1 103/ulNormal0.0-0.7The [facility] HospitalComment on above: Performed By: #### PT, PTT #### [facility] [address] [place] [address] Dr. Sage Liuosinophils/100 WBC (Bld)0.7 %Critically low0.9-7.0The [facility] HospitalComment on above:Performed By: #### PT, PTT #### [facility] [address] [place] [address] Dr. Sage Simmonsthrocyte distribution width (RBC) [Ratio]15.5 %Critically high 11.0-15.0The [facility] HospitalComment on above:Performed By: #### PT, PTT #### [facility] [address] [place] [address] Dr. Sage WilksHematocrit (Bld) [Volume fraction]36.2 %Xawmux46.0-48.0The [facility] HospitalComment on above:Performed By: #### PT, PTT #### [facility] [address] [place] [address] Dr. Sage WilksHemoglobin (Bld) [Mass/Vol]11.9 g/dLCritically low12.0-16.0The [facility] HospitalComment on above:Performed By: #### PT, PTT #### [facility] [address] [place] [address] Dr. Sage Oquendo #0.38 10e3/ulCritically high0.00-0.03[facility] Comment on above:Performed By: #### PT, PTT #### [facility] [address] [address] [address] Sage Oquendo %2.2 %Critically high0.0-0.5The [facility] HospitalComment on above:Performed By: #### PT, PTT #### [facility] [address] [address] [address] Sage Lanier #2.7 103/ulNormal1.2-3.8The [facility] HospitalComment on above:Performed By: #### PT, PTT #### [facility] [address] [place] [address] Dr. Sage Medeiroshocytes/100 WBC (Bld)15.6 %Critically low20.5-60.0The [facility] HospitalComment on above:Performed By: #### PT, PTT #### [facility] [address] [place] [address] Dr. Sage MaurerUAL DIFF REQNONormalThe [facility] HospitalComment on above: Performed By: #### PT, PTT #### [facility] [address] [place] [address] Dr. Sage Interiano (RBC) [Entitic mass]29.1 hqHlnnqu54.7-34.0The [facility] HospitalComment on above:Performed By: #### PT, PTT #### [facility] [address] [place] [address] Dr. Sage Interiano (RBC) [Mass/Vol]32.9 g/qKKversv36.9-35.2The [facility] HospitalComment on above:Performed By: #### PT, PTT #### [facility] [address] [place] [address] Dr. Sage Interiano (RBC) [Entitic vol]88.5 gITyshzp34.0-99.0The [facility] HospitalComment on above:Performed By: #### PT, PTT #### [facility] [address] [place] [address] Dr. Sage Kee #1.2 103/ulCritically high0.3-0.8[facility] Comment on above:Performed By: #### PT, PTT #### [facility] [address] [place] [address] Dr. Sage Mcdonaldocytes/100 WBC (Bld)7.1 %Normal1.7-12.0[facility] Comment on above:Performed By: #### PT, PTT #### [facility] [address] [place] [address] Dr. Sage WatsonUT #12.9 103/ulCritically high1.4-6.5ThLake County [facility] Comment on above:Performed By: #### PT, PTT #### [facility] [address] [place] [address] Dr. Sage Watsonutrophils/100 WBC (Bld)74.1 %Uvcias31.0-75.0The [facility] HospitalComment on above:Performed By: #### PT, PTT #### [facility] [address] [place] [address] Dr. Sage Lawrencelet mean volume (Bld) [Entitic vol]9.6 fLNormal9.5-13.5The [facility] HospitalComment on above:Performed By: #### PT, PTT #### [facility] [address] [place] [address] Dr. Sage WilksPLT178 103/rfGnnyte745-886Obw [facility] HospitalComment on above: Performed By: #### PT, PTT #### [facility] [address] [place] [address] Dr. Sage WilksRBC4.09 106/ulCritically low4.20-5.40The [facility] HospitalComment on above:Performed By: #### PT, PTT #### [facility] [address] [place] [address] Dr. Sage WilksWBC17.4 103/ulCritically high4.0-11.0The [facility] HospitalComment on above:Performed By: #### PT, PTT #### [facility] [address] [place] [address] Dr. Sage Adams #0.1 103/ulNormal0.0-0.1The [facility] HospitalComment on above:Performed By: #### CBC #### [facility] [address] [place] [address] Miguel Ángel KarenBasophils/100 WBC (Bld)0.3 %Normal0.2-2.0[facility] Comment on above:Performed By: #### CBC #### [facility] [address] [place] [address] Miguel Ángel KarenEO #0.0 103/ulNormal0.0-0.7The [facility] HospitalComment on above: Performed By: #### CBC #### [facility] [address] [place] [address] Miguel Ángel KarenEosinophils/100 WBC (Bld)0.0 %Critically low0.9-7.0The [facility] HospitalComment on above:Performed By: #### CBC #### [facility] [address] [place] [address] Miguel Ángel KarenErythrocyte distribution width (RBC) [Ratio]15.1 %Critically high 11.0-15.0The [facility] HospitalComment on above:Performed By: #### CBC #### [facility] [address] [place] [address] Miguel Ángel KarenHematocrit (Bld) [Volume fraction]36.3 %Kwyjqx35.0-48.0The [facility] HospitalComment on above:Performed By: #### CBC #### [facility] [address] [place] [address] Miguel Ángel KarenHemoglobin (Bld) [Mass/Vol]11.7 g/dLCritically low12.0-16.0The [facility] HospitalComment on above:Performed By: #### CBC #### [facility] [address] [place] [address] Miguel Ángel KarenIG #0.41 10e3/ulCritically high0.00-0.03The [facility] HospitalComment on above:Performed By: #### CBC #### [facility] [address] [place] [address] Miguel Ángel KarenIG %1.7 %Critically high0.0-0.5The [facility] HospitalComment on above:Performed By: #### CBC #### [facility] [address] [place] [address] Miguel Ángel SarmientoLYMPH #1.5 103/ulNormal1.2-3.8The [facility] HospitalComment on above: Performed By: #### CBC #### [facility] [address] [place] [address] Miguel Ángel SarmientoLymphocytes/100 WBC (Bld)6.3 %Critically low20.5-60.0The [facility] HospitalComment on above:Performed By: #### CBC #### [facility] [address] [place] [address] Miguel Ángel SarmientoMANUAL DIFF REQNONormalThe [facility] HospitalComment on above: Performed By: #### CBC #### [facility] [address] [place] [address] Miguel Ángel KarenMCH (RBC) [Entitic mass]28.5 okSdepmb58.7-34.0[facility] Comment on above:Performed By: #### CBC #### [facility] [address] [place] [address] Miguel Ángel SarmientoMCHC (RBC) [Mass/Vol]32.2 g/eAWhnlad46.9-35.2[facility] Comment on above:Performed By: #### CBC #### [facility] [address] [place] [address] Miguel Ángel SarmientoMCV (RBC) [Entitic vol]88.5 lNEjwjnd61.0-99.0[facility] Comment on above:Performed By: #### CBC #### [facility] [address] [place] [address] Miguel Ángel SarmientoMONO #1.7 103/ulCritically high0.3-0.8The [facility] HospitalComment on above:Performed By: #### CBC #### [facility] [address] [place] [address] Miguel Ángel KarenMonocytes/100 WBC (Bld)7.1 %Normal1.7-12.0[facility] Comment on above:Performed By: #### CBC #### [facility] [address] [place] [address] Miguel Ángel MarxUT #19.9 103/ulCritically high1.4-6.5The [facility] HospitalComment on above:Performed By: #### CBC #### [facility] [address] [place] [address] Miguel Ángel WilsonenNeutrophils/100 WBC (Bld)84.6 %Critically high43.0-75.0The [facility] HospitalComment on above:Performed By: #### CBC #### [facility] [address] [place] [address] Miguel Ángel WilsonenPlatelet mean volume (Bld) [Entitic vol]9.7 fLNormal9.5-13.5The [facility] HospitalComment on above:Performed By: #### CBC #### [facility] [address] [place] [address] Miguel Ángel UuhsbHUH894 103/iqIrqxdo264-613Wll [facility] HospitalComment on above: Performed By: #### CBC #### [facility] [address] [place] [address] Miguel Ángel KarenRBC4.10 106/ulCritically low4.20-5.40The [facility] HospitalComment on above:Performed By: #### CBC #### [facility] [address] [place] [address] Miguel Ángel AqtrzBFU80.5 103/ulCritically high4.0-11.0The [facility] HospitalComment on above:Performed By: #### CBC #### [facility] [address] [place] [address] Miguel Ángel KarenBASO #0.1 103/ulNormal0.0-0.1The [facility] HospitalComment on above: Performed By: #### PT, PTT #### [facility] [address] [place] [address] Dr. Sage Adamsphils/100 WBC (Bld)0.4 %Normal0.2-2.0[facility] Comment on above:Performed By: #### PT, PTT #### [facility] [address] [place] [address] Dr. Sage Noonan #0.1 103/ulNormal0.0-0.7The [facility] HospitalComment on above: Performed By: #### PT, PTT #### [facility] [address] [place] [address] Dr. Sage Liuosinophils/100 WBC (Bld)0.5 %Critically low0.9-7.0The [facility] HospitalComment on above:Performed By: #### PT, PTT #### [facility] [address] [place] [address] Dr. Sage Liurythrocyte distribution width (RBC) [Ratio]15.1 %Critically high 11.0-15.0The [facility] HospitalComment on above:Performed By: #### PT, PTT #### [facility] [address] [place] [address] Dr. Sage WilksHematocrit (Bld) [Volume fraction]36.8 %Vloajr80.0-48.0The [facility] HospitalComment on above:Performed By: #### PT, PTT #### [facility] [address] [place] [address] Dr. Sage WilksHemoglobin (Bld) [Mass/Vol]12.0 g/bVEujivy51.0-16.0The [facility] HospitalComment on above:Performed By: #### PT, PTT #### [facility] [address] [place] [address] Dr. Sage Oquendo #0.72 10e3/ulCritically high0.00-0.03[facility] Comment on above:Performed By: #### PT, PTT #### [facility] [address] [place] [address] Dr. Sage Oquendo %3.9 %Critically high0.0-0.5The [facility] HospitalComment on above:Performed By: #### PT, PTT #### [facility] [address] [place] [address] Dr. Sage Lanier #2.5 103/ulNormal1.2-3.8The [facility] HospitalComment on above:Performed By: #### PT, PTT #### [facility] [address] [place] [address] Dr. Sage Medeiroshocytes/100 WBC (Bld)13.2 %Critically low20.5-60.0The [facility] HospitalComment on above:Performed By: #### PT, PTT #### [facility] [address] [place] [address] Dr. Sage MaurerUAL DIFF REQNONormalThe [facility] HospitalComment on above: Performed By: #### PT, PTT #### [facility] [address] [place] [address] Dr. Sage Interiano (RBC) [Entitic mass]28.6 dqXqpciu75.7-34.0The [facility] HospitalComment on above:Performed By: #### PT, PTT #### [facility] [address] [place] [address] Dr. Sage Interiano (RBC) [Mass/Vol]32.6 g/wKCateqw79.9-35.2The [facility] HospitalComment on above:Performed By: #### PT, PTT #### [facility] [address] [place] [address] Dr. Sage Interiano (RBC) [Entitic vol]87.6 rEGmoydh23.0-99.0The [facility] HospitalComment on above:Performed By: #### PT, PTT #### [facility] [address] [place] [address] Dr. Sage Kee #1.3 103/ulCritically high0.3-0.8[facility] Comment on above:Performed By: #### PT, PTT #### [facility] [address] [place] [address] Dr. Sage Mcdonaldocytes/100 WBC (Bld)6.8 %Normal1.7-12.0[facility] Comment on above:Performed By: #### PT, PTT #### [facility] [address] [place] [address] Dr. Sage Hill #14.1 103/ulCritically high1.4-6.5[facility] Comment on above:Performed By: #### PT, PTT #### [facility] [address] [place] [address] Dr. Sage Watsonutrophils/100 WBC (Bld)75.2 %Critically high43.0-75.0The [facility] HospitalComment on above:Performed By: #### PT, PTT #### [facility] [address] [place] [address] Dr. Sage Lawrencelet mean volume (Bld) [Entitic vol]9.8 fLNormal9.5-13.5The [facility] HospitalComment on above:Performed By: #### PT, PTT #### [facility] [address] [place] [address] Dr. Sage WilksPLT177 103/yxKhbmwh367-515Gpq [facility] HospitalComment on above: Performed By: #### PT, PTT #### [facility] [address] [place] [address] Dr. Sage WilksRBC4.20 106/ulNormal4.20-5.40The [facility] HospitalComment on above:Performed By: #### PT, PTT #### [facility] [address] [place] [address] Dr. Sage WilksWBC18.7 103/ulCritically high4.0-11.0The [facility] HospitalComment on above:Performed By: #### PT, PTT #### [facility] [address] [place] [address] Dr. Sage WilksCULTFREEDOM BLOODon 61-82-3474Zlscnvjdeww examination of blood, cultureCulture Observations: NO GROWTH AT 5 DAYS.NormalThe [facility] HospitalComment on above:Performed By: #### CBC #### [facility] [address] [place] [address] Miguel Ángel KarenCULTURE URINEon 76-51-5844IFNVASM URINECulture Observations: NO GROWTH.NormalBarnesville HospitalComment on above:Performed By: #### URCX #### [facility] [address] [place] [address] Miguel Ángel KarenDRUG SCREEN RAPID (URINE)on [id number]XJuf [facility] HospitalComment on above:Performed By: #### CBC #### [facility] [address] [place] [address] Miguel Ángel KarenBARNegativeNormalNEGATIVEBarnesville HospitalComment on above: Performed By: #### CBC #### [facility] [address] [place] [address] Miguel Ángel KarenBUPNegativeNormalNEGATIVESCCI [facility] on above: Performed By: #### CBC #### [facility] [address] [place] [address] Miguel Ángel KarenBZONegativeNormalNEGATIVEBarnesville HospitalComment on above: Performed By: #### CBC #### [facility] [address] [place] [address] Miguel Ángel KarenCOCNegativeNormalNEGATIVEBarnesville HospitalComment on above: Performed By: #### CBC #### [facility] [address] [place] [address] Miguel Ángel KarenCUT-OFFSSEE [facility] HospitalComment on above:Result Comment: AMP (Amphetamine): 500ng/mL, BAR (Barbituates): 200 ng/mL, BZO (Benzodiazepines): 150 ng/mL, BUP (Buprenorphine): 10 ng/mL, OLIVIER (Cocaine): 150 ng/mL, mAMP (Methamphetamine): 500 ng/mL, MTD (Methadone): 200 ng/mL, OPI (Opiates): 100 ng/mL, OXY (Oxycodone): 100 ng/mL, PCP (Phencyclidine): 25 ng/mL, PPX (Propoxyphene): 300 ng/mL, THC (Cannabinoids): 50 ng/mL, TCA (Trycyclic Antidepressants): 300 ng/mLPerformed By: #### CBC #### [facility] [address] [address] Miguel Ángel KarenDRUG CUT HEADERDRUG CLASS TEST SYSTEM CUT-OFF CONCENTRATIONS ARE FOLLOWS:NormalThe [facility] HospitalComment on above:Performed By: #### CBC #### [facility] [address] [address] Miguel Ángel KarenmAMPNegativeNormalNEGATIVEUc Medical Center HospitalComment on above: Performed By: #### CBC #### [facility] [address] [place] [address] Miguel Ángel KarenMTDNegativeNormalNEGATIVEBarnesville HospitalComment on above: Performed By: #### CBC #### [facility] [address] [place] [address] Miguel Ángel KarenOPINegativeNormalNEGATIVESCCI [facility] on above: Performed By: #### CBC #### [facility] [address] [address] Miguel Ángel KarenOXYNegativeNormalNEGATIVEKettering Health Behavioral Medical Centerment on above: Performed By: #### CBC #### [facility] [address] [place] [address] Miguel Ángel KarenPCPNegativeNormalNEGATIVESCCI [facility] on above: Performed By: #### CBC #### [facility] [address] [place] [address] Miguel Ángel KarenPPXNegativeNormalNEGATIVEBarnesville HospitalComment on above: Performed By: #### CBC #### [facility] [address] [place] [address] Miguel Ángel KarenTCANegativeNormalNEGATIVEBarnesville HospitalComment on above: Performed By: #### CBC #### [facility] [address] [place] [address] Miguel Ángel KarenTHCNegativeNormalNEGATIVEBarnesville HospitalComment on above: Performed By: #### CBC #### [facility] [address] [address] Miguel Ángel KarenLACTATE/LACTIC ACIDon [id number] [Moles/Vol]1.1 mmol/LNormal 0.7-2.0K[facility] Behavioral Medical Centerment on above:Performed By: #### LACT #### [facility] [address] [place] [address] Miguel Ángel SarmientoPOINT OF CARE GLUCOSEon 65-80-8007Bzojnla [Mass/Vol]120 mg/dL Critically hqhi13-277VdmBarnesville HospitalComment on above:Performed By: #### POCGLUC #### [facility] [address] [place] [address] Miguel Ángel WilsonenTYPE AND SCREENon 06-52-1647DYHR AND SCREENNegativeNormalThe [facility] HospitalComment on above:Performed By: #### CBC #### [facility] [address] [place] [address] Miguel Ángel SarmientoUA (CLEAN/CATCH) GERIATRICS PHYSICIAN/MICRO IF IND.on [id number] Ql (U) NegativeNormalNEGATIVEBarnesville HospitalComment on above:Performed By: #### PT, PTT #### [facility] [address] [place] [address] Dr. Sage WilksClarity (U)CLEARNormalCLEARBarnesville HospitalComment on above: Performed By: #### PT, PTT #### [facility] [address] [place] [address] Dr. Sage Castro (U)LT. YELLOWNormalYELLOWBarnesville HospitalComment on above:Performed By: #### PT, PTT #### [facility] [address] [place] [address] Dr. Sage WilksGlucose Ql (U)NegativeNormalNEGATIVEBarnesville HospitalComment on above:Performed By: #### PT, PTT #### [facility] [address] [place] [address] Dr. Sage WilksHemoglobin Ql (U)LARGEAbnormalNEGMount Carmel Health System on above:Performed By: #### PT, PTT #### [facility] [address] [place] [address] Dr. Yilan ChangKetones Ql (U)NegativeNormalNEGATIVEThe [facility] HospitalComment on above:Performed By: #### PT, PTT #### [facility] [address] [place] [address] Dr. Sage HarringtonOCYTESMODERATEAbnormalNEGATIVEThe [facility] HospitalComment on above:Performed By: #### PT, PTT #### [facility] [address] [address] [address] Sage Jolly Ql (U)NegativeNormalNEGATIVEThe [facility] HospitalComment on above:Performed By: #### PT, PTT #### [facility] [address] [address] [address] Sage WilkspH (U)6.0 [pH]Normal5-9The [facility] on above: Performed By: #### PT, PTT #### [facility] [address] [place] [address] Dr. Sage WilksSPEC GRAVITY1.050Fcypqr0.005-<=1.025The [facility] on above:Performed By: #### PT, PTT #### [facility] [address] [place] [address] Dr. Sage Medeiros PROTEINNegativeNormalNEGATIVE/ TRACEThe [facility] on above:Performed By: #### PT, PTT #### [facility] [address] [place] [address] Dr. Sage Herrera MICRO INDINDICATEDNormalThe [facility] HospitalComment on above: Performed By: #### PT, PTT #### [facility] [address] [place] [address] Dr. Sage Morales Qn (U)0.2 {Jakob'U}/dLNormal0.2 - 1.0The [facility] on above:Performed By: #### PT, PTT #### [facility] [address] [place] [address] Dr. Sage Green MICROSCOPIC ONLYon [id number]C SEEN The Don HospitalComment on above:Performed By: #### PT, PTT #### [facility] [address] [address] [address] Sage Del Castillo identified Cx Nom (U)CX ALREADY ORDEREDNormalThLake County Memorial Hospital - WestComment on above:Performed By: #### PT, PTT #### [facility] [address] [place] [address] Dr. Sage Klein SEENNormalNONE SEENBarnesville HospitalComselect specialty hospital-[facility] on above:Performed By: #### PT, PTT #### [facility] [address] [address] [address] Sage De Leon LM Nom (Urine sed)NONE SEENNormalNONE SEENSCCI [facility] on above:Performed By: #### PT, PTT #### [facility] [address] [place] [address] Dr. Cazares ChangEpithelial cells LM Ql (Urine sed)RARENormalNONE SEEN /RAREBarnesville HospitalComselect specialty hospital-[place] on above:Performed By: #### PT, PTT #### [facility] [address] [place] [address] Dr. Sage Agee SEENrmcaNONE SEENSCCI [facility] on above:Performed By: #### PT, PTT #### [facility] [address] [place] [address] Dr. Sage WilksVypvpXIP89-60Tnobzttb6-2Kbk [facility] on above: Performed By: #### PT, PTT #### [facility] [address] [place] [address] Dr. Sage WilksWBC5-10AbnormalNONE SEENSCCI [facility] on above: Performed By: #### PT, PTT #### [facility] [address] [place] [address] Dr. Sage Sesay B STREP CULTUREon 04-12-2021. agalactiae Ag Ql (Unsp spec) Culture Observations: NEGATIVE FOR GROUP B STREPTOCOCCUS.NormalThe [facility] HospitalComselect specialty hospital-[facility] on above: Performed By: #### CBC #### [facility] [address] [id number] Miguel Ángel SarmientoUS PREG PLACENTAon [id number] PREG PLACENTAEXAM: US PREG PLACENTA HISTORY: Low lying placenta COMPARISON: 02/01/2021 and 12/08/2020 TECHNIQUE: Transabdominal pelvic surgical ultrasound FINDINGS: There is a single intrauterine fetus in vertex presentation. heart tones detected at 154 bpm. Fetus is otherwise not evaluated. The placenta is posterior in location, and and measured at 6.8 cm from the internal cervical os by transabdominal view. IMPRESSION: 1. Single intrauterine fetus in vertex presentation with heart tones of 154 bpm. 2. Posterior placenta with placental edge at 6.8 cm from the internal cervical os by transabdominal examination. Electronically authenticated by: LENNY GUTIÉRREZ Date: 2021-02-02 15:19NormWVUMedicine Barnesville HospitalUS PREG PLACENTAEXAMINATION: US PREG PLACENTA HISTORY: Low lying placenta COMPARISON: 12/08/2020 FINDINGS: position: Cephalic presentation, longitudinal lie Placenta: Posterior, grade 1. The placental edge is not visualized due to presentation. Heart rate: 141 BPM Cervix: 3.7 cm, closed IMPRESSION: Placental edge is not definitively visualized due to head position Electronically authenticated by: SANDEE LUGO Date: 2021-02-02 07:18NormWVUMedicine Barnesville HospitalGLUCOSE - 1HRon [id number] [Mass/Vol]106 mg/dLNormal 74-106The [facility] HospitalComment on above:Performed By: #### CBC #### [facility] [address] [place] [address] Miguel Ángel KarenHEMOGRAM AND PLATELon 29-94-6003Alepwsawgt (Bld) [Volume fraction] 39.4 %Hbhetl48.0-48.0The [facility] HospitalComment on above:Performed By: #### HH #### [facility] [address] [place] [address] Miguel Ángel KarenHemoglobin (Bld) [Mass/Vol]12.7 g/lKZceomm06.0-16.0The [facility] HospitalComment on above:Performed By: #### HH #### [facility] [address] [address] Miguel Ángel SarmientoUNITED HEALTH SERVICES (RBC) [Entitic mass]29.8 hiVziakh54.7-34.0[facility] Comment on above:Performed By: #### HH #### [facility] [address] [place] [address] Miguel Ángel SarmientoNYU LANG[facility] (RBC) [Mass/Vol]32.2 g/kCSobyem26.9-35.2[facility] Comment on above:Performed By: #### HH #### [facility] [address] [place] [address] Miguel Ángel SarmientoNORTHEAST[facility] (RBC) [Entitic vol]92.5 uYUtunzg16.0-99.0[facility] Comment on above:Performed By: #### HH #### [facility] [address] [place] [address] Miguel Ángel WilsonAoeiqIMT622 103/jlPdimhu354-975Dev [facility]cy HospitalComment on above: Performed By: #### HH #### [facility] [address] [place] [address] Miguel Ángel WilsonenRBC4.26 106/ulNormal4.20-5.40The Mercy HospitalComment on above: Performed By: #### HH #### [facility] [address] [place] [address] Miguel Ángel WilsonenWBC13.4 103/ulCritically high4.0-11.0The Mercy HospitalComment on above:Performed By: #### HH #### [facility] [address] [place] [address] Miguel Ángel WilsonKansas City [facility] [phone]..[facility]One [facility] [address]Clobng ORTHOPAEDIC CLINIC NOTEPATIENT NAME: YANETH DENNIS LMR: [id number] OF : 2000ACCT: [id number] OF SERVICE: 09/14/2017DATE OF SURGERY: 03/17/2017 -- T2-K6fkksczqno spinal fusion and selectiveinstrumentation.SUBJECTIVE: Yaneth is now about 6 months outfrom the above-mentionedprocedure. She has been having this lower extremity pain on the left side andoccasional leg numbness or tingling more on the right side. We had previouslytried to work that upwith a lumbar spine MRI which was negative, but there wassome artifact seen from the implants. Whenwe last saw her, we also wrote her aprescription for Neurontin. She did say that the Neurontin tookthe pain awayand helped, but she had some side effects where she was very paranoid on themedication, so she has stopped that and elected to take Tylenol instead.OBJECTIVE: On examination today, Yaneth's incision is still well healed. Shehas a slightly higher right shoulder than the left, slightlyhigher left iliaccrest on the right. With forward bend, it is hard for her to do a good forwardbenddue to the increased pain that she reports, but I do get a scoliometerreading of about 13 degrees in her thoracic region and 0 degrees in the lumbarregion. On neurologic examination, she is reportingsome altered sensation inthe L2-L4 distribution in her right lower extremity and normal in her leftlower extremity. On motor examination, she does have 5 out of 5 motor strengthin bilateral EHL, tibialis anterior, gastrocsoleus, quadriceps, and hipabductor muscles. She has a negative clonus bilaterally and downgoing Babinskibilaterally.X-RAYS: Today, we did obtain a new AP and lateral scoliosis x-ray. This showsthat the hardware remains intact. She has what appears to be a 29 degrees curvefrom T1-T5, a 29 degree curve from T5-T11, and a 14 degree curve from T11-L3.She had a pelvic incidence of 46 degrees, a pelvic tilt of 9 degrees, andsacral slope of 37 degrees. 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 She hasno more lifting restriction and is free to get involved with activities andathletics. Also, I told her that due to her symptoms from the Neurontin, we cantry Pastor, but she and her mom were wary to try another medication and willcontinue Tylenol as needed. We will see her back in 6 months and continue tofollow her for any signs of any hardware changes, mechanical failure, ordecompensation around the endsof our fusion. So when we see her back in 6months, we will obtain new AP and lateral scoliosis x-rays in the EOS system.ATTENDING: Monty Reynolds M.D.CC:JOB: [id number]: [id number]: 09/14/2017 14:57:25 / ajDT: 09/15/2017 13:02:49 / dg........[facility] CenterXR SCOLI SPINE 2-3 VIEWSon [id number] SCOLI SPINE 2-3 VIEWS [place], [place] [address]LUGFBGA IMAGING DEPARTMENT PATIENTNAME: YANETH DENNIS ORDER: BIRTHDATE: 2000 ACCT: [id number]: , MR: LOCATION: [facility]------- XR SCOLI SPINE 2-3 VIEWS ORDERING DOCTOR: NIKOLAI REYNOLDS ORDER #(S): Standing PA and lateral thoracolumbar spine: 09/14/2017 Comparison: July 11, 2017 Clinical History: Scoliosis follow-up Findings: The study is performed with the patientupright. The patienthas 12 pairs of ribs. Spinal hardware is stable in appearance. A 14degree concave left curvature is measured between T11 and L4. A 21degree concave right curvature is measured between T5 and T12. A 25degree concave left curvature is measured between C7 and T6. 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 Thelungs are well aerated bilaterally. IMPRESSION: Scoliosis as detailed CATE CEBALLOS D.O. This document has been electronically reviewed and approvedby CATE CEBALLOS D.O.The above information is part of the patient's medicalrecord and shouldbe maintained in a confidential manner consistent with medical recordpolicies.[facility] TRANS [phone]..[facility] PediatricOne [facility] [address]Njlvrx Fax: [phone] CLINIC NOTEPATIENT NAME: YANETH DENNIS LMR: [id number] OF : 2000ACCT: [id number] OF SERVICE: 07/27/2017DATE OF SURGERY: March 17, 2017 - A T2-L3 posterior spinal fusion for adolescentidiopathic scoliosis.SUBJECTIVE: Yaneth is a 16-year-old female who is now a little over fourmonths out from the above-mentioned procedure. She is reporting that she isstill having some numbness and tingling going down both lower extremities. Onthe left side, it seems to go down the lateral thigh starting around the ASIS,and on the right side she says it goes down both the lateral and the medialthigh and the leg, but stops being numb and tingling at the ankle. When shesits for long periods of time at school it is more painful. We were concernedthat maybe she had lateral femoral cutaneous nerve irritation, but with thepain going all the way down tothe right lower extremity, I did want to get anMRI and make sure that I did not see any signs of disc herniation that could becausing these symptoms. So we sent her for an MRI and she is here today fo rtheresults.OBJECTIVE: On examination today, she still has no motor deficits.IMAGING: The MRI we reviewed with Yaneth and her guardian. We showed themthat there is no disc herniation seen below theL3 vertebral body. Also I canvisualize the discs at L2-L3, L1-L3, and T12-L1, and it does appear that thenucleus pulposus is intact without any signs of lessening of the heights, butthe actual canal is obscured by some of the pedicle screws.ASSESSMENT: Status post T2-L3 posterior spinal fusion withsome lower extremityparesthesias and pain.PLAN: I discussed with Yaneth and her guardian that presents with her that Elder not sure what is causing the symptoms. I am still suspicious that the leftside is an irritated lateral femoral cutaneous nerve, but the right- sidedsymptoms I am not sure. I do want to see how she responds to some Neurontin, soI have written her for 100 mg of Neurontin. 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 Then after that, if she istolerating it withoutany significant symptoms such as mood change, tremors, ordrowsiness, then she can titrate up to three times a day. We will see her backin three weeks. At that time, we will see how she is responding and we willgetanother set of AP and lateral scoliosis x-rays in our EOS system.ATTENDING: Monty Reynolds M.D.CC:JOB: [id number]: [id number]: 07/27/2017 14:50:05 / ajDT: 07/28/2017 16:13:54 / hs........[facility] LUMBAR SPINE WO IV CONTRASTon [id number] LUMBAR SPINE WO IV CONTRASTCLEVELAND CLINIC F[facility]'[place], [place] [address]WEMSPBT IMAGING DEPARTMENT PATIENTNAME: YANETH DENNIS ORDER: BIRTHDATE: 2000 ACCT: [id number]: , MR: LOCATION: [facility]------- MR LUMBAR SPINE WO IV CONTRAST ORDERING DOCTOR: NIKOLAI REYNOLDS INCLUDES ORDER #(S): MRI of the lumbar spine: 07/25/2017. Comparison: Radiographs from 07/11/2017. Clinical History: herniated disc. Bilateral hip pain and numbness inlegs. History of posterior spinal fusion for scoliosis. Technical: Multiplanar multisequence imaging was performed. Findings: Artifact from the spinal hardware limits evaluation above theL3-4 level, with no obvious abnormality appreciated. The L3-4, L4-5, andL5-S1 intervertebral discs have a normal appearance without herniation.There is no central canal or neuroforaminal stenosis. Marrow signal isnormal. No spinal orparaspinal mass is seen. IMPRESSION: 1. Artifact from spinal hardware limits evaluation above the L3-4 level,with no obvious abnormality identified.2. No abnormality identified at L3-4 or below. DUNG KILLIAN D.O. This document has been electronically reviewed and approvedby Bj MACIEL.The above information is part of the patient's medical record and shouldbe maintained in a confidential manner consistent with medical recordpolicies.[facility] CenterTRANSon [phone] ..[facility] PediatricOne [facility] [address]Ctwgfv ORTHOPAEDIC CLINIC NOTEPATIENT NAME: YANETH DENNIS LMR: [id number] OF : 2000ACCT: [id number] OF SERVICE: 07/11/2017SUBJECTIVE: Yaneth is a 16-year-old female who is now approximately 4 monthsout from undergoing a T2-L3 posterior spinal fusion on 03/17/2017. She presentstoday reporting that the pain she was having in her thigh is still there. Shereports that she gets pain in the left pelvic region as well as in the rightthigh. We previously thought this was due to some irritation of her lateralfemoral cutaneous nerve, but she is continuing to co mplain of this still 4weeks out. As far as her back, she reports that she has no back pain and thatis doing well. She is eager to start progressing with her activities.OBJECTIVE: On examination today, she is alert and oriented, cooperative withexamination. On skin examination, her spine incision isfully healed, no signsof any erythema or edema. With lying in the supine position, she has about 9degrees of rotation seen on scoliometer. She was unable to fully forward flexin the standing positionat this stage. On her neurologic examination, she doesstill maintain 5/5 motor strength in bilateral EHL, tibialis anterior,gastrocsoleus, quadriceps, and hip abductor muscles, but does have some pain onthe left side of her back with straight leg raise on the left as well as acrossover straight-legraise on the right.RADIOGRAPHS: We did obtain AP and lateral scoliosis x-rays today in our EOSsystem which shows, on the AP, from T1 to T5, 19 degrees of curvaturelevoconvex; from T5-T11, 25 degrees of curvature, dextroconvex; and, from T11to L4, 20 degrees of curvature, levoconvex. She does appearto be a Risser 4,nearly 5. On the sagittal views, she has, from T2 to T12, 25 degrees ofkyphosis; from T5 to T12, she has 16 degrees of kyphosis; and, from T12 to L5,48 degrees of lumbar lordosis. 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 I do want to evaluate her lumbar spine for any signsof a disc herniation that could be compressing on a nerve root. Therefore, wewill obtain a lumbar MRI and see Yaneth back in3 weeks to discuss theresults.ATTENDING: Monty Reynolds M.D.CC:JOB: [id number]: [id number]: 07/11/2017 12:20:47 / ajDT: 07/12/2017 12:07:17 / sls........NormalMer[facility] HospitalXR SCOLI SPINE 2-3 VIEWSon [id number] SCOLI SPINE 2-3 VIEWS [place], [place] [address]UAOCKCC IMAGING DEPARTMENT PATIENTNAME: YANETH DENNIS ORDER: BIRTHDATE: 2000 ACCT: [id number]: , MR: LOCATION: [facility]------- XR SCOLI SPINE 2-3 VIEWS ORDERING DOCTOR: NIKOLAI REYNOLDS INCLUDES ORDER #(S): Standing PA and lateral thoracolumbar spine: 07/11/2017 Comparison: Prior radiographs from 04/06/2017 Clinical History: 16-year-old female with history of back pain andscoliosis, status post posterior spinal fusion. Evaluate for scoliosis. Findings: The study is performed with the patient upright. Posteriorspinal fusion hardware extending from about T2-L3 is stable inappearance. The patient has 12 pairs of ribs. A 24 degree concave leftcurvature is measured between T5 and T11. A 15 degree concave rightcurvature is measured between T11 and L3. No vertebral anomaly isseen. The iliac apophyses are Risser Stage 4. The lungs are well aeratedbilaterally. IMPRESSION: Scoliosis status post spinal fusion, not substantiallychanged since the prior exam. ILYA MCCLAIN MD This document has been electronically reviewed and approvedby ILYA MCCLAIN MDThe above information is part of the patient's medical record and shouldbe maintained in a confidential manner consistent with medical recordpolicies.[facility] CenterUS-BREAST LT COMPLETEon [phone]-BREAST LT COMPLETEThis is a summary report. The complete report is available in the patient's medical record. If you cannot access the medical record, please contact the sending organization for a detailed fax or copy.US- BREAST LT COMPLETECOMPARISON: None.INDICATION FOR EXAMINATION: 16-year-old female with palpable left breast lump.TECHNIQUE: Real-time grayscale images were obtained. The entire breast was scanned,including all four quadrants and axillary regions.FINDINGS: At the 2:00 position 5 cm from the nipple, corresponding with the patient reported palpable lump, there is an oval circumscribed hypoechoicmass with parallel orientation measuring 3.0 x 2.8 x 1.4 cm. This likely reflects a fibroadenoma. No additional sonographic findings are seen elsewhere within the left breast. No abnormal axillary lymph nodes are identified.ASSESSMENT:BI-RADS CATEGORY (3) Probably Benign.RECOMMENDATIONS:Left Follow-up diagnostic breast ultrasound in 6 months targeted at the 2:00 position. A result letter will be sent to the patientACR-BIRADS ASSESSMENT CATEGORIESCategory Likelihood of Malignancy Recommendation0- Incomplete Unknown Further Imaging Required1 - Negative No Evidence of Malignancy Routine Screenin g2 - Benign No Evidence of Malignancy Routine Screening3 - Probably Benign <2% Chance of Malignancy Short term follow-up imaging every 6 months for 2 years4 - Suspicious Abnormality 2 -95 % Chanceof Dvldvjrbez3F - Low Suspicion (2-10%)4B - Moderate Suspicion (10-50%)4C - High Suspicion (50-95%)Biopsy5 - Highly Suggestive of Malignancy >95% Chance of Malignancy Biopsyl be sent to the soren tRachelleElectronically Signed by: Veronica Hope, 06/20/2017 4:57 [facility] HospitalTRANSon [id number]..[facility] PediatricOne [facility] [address]Qqvpft ORTHOPAEDIC CLINIC NOTEPATIENT NAME: YANETH DENNIS LMR: [id number] OF : 2000ACCT: [id number] OF SERVICE: 04/06/2017SUBJECTIVE: Yanteh is a 16-year-old female who underwent T2-L3 posteriorspinal fusion on 03/17/2017. She reports that her pain is improving. She istolerating being upright, sitting upright in her bed, pretty well. She did havean episode where she saw some drainage coming through the dressings and had todo multiple dressing changes. She did present to the emergency room where herwound was checked, the dressing was changed, and she was put on oralantibiotics. She reports that she has taken her oral antibiotics without havingany issues with fevers or chills and the dressing has remained dry over thelast several days. She denies any weakness in the extremities. She does,however, get fatigued in her back if she is up for too long. There isoccasional pain that she gets on her left flank and around the front, rightaround the hip region.OBJECTIVE: On examination today, I removed her dressing and her incision isintact. There is no drainage. There is no fluctuance or seroma felt underneaththe wound. I did check her rib hump today, which still has about 11 degrees ofrotation on scoliometer reading. She has full 5/5 strength in the EHL, tibialisanterior, gastrocsoleus. She has about 4/5 strength with the quadriceps, whichappears to be pain related. She is having some pain in the back when she doesattempt to hold her quadriceps extended against resistance. On hip abduction,she has 5/5 strength.RADIOGRAPHS: We did obtain x-rays today of the spine, AP and lateral views,which show the hardware remains intact. From T2 to T5, she has a 19-degreeremaining upper curve; from T6 to T10, she has a 26-degree curve; from T11 toL3, she has 2 degrees of curvature; from T5 to T12, she has 23 degrees ofkyphosis; and, from T12 to L5, she has 37 degrees of lumbar lordosis.ASSESSMENT: Status post T2-L3 posterior spinal fusion, doing well in herpostoperative period.PLAN: At this point, I told Yaneth that she can shower and bathe and even getin the pool, if she would like. I have allowed her to do low-impact typeactivities, such as biking. If she gets in the pool, I told her that I do notwant her to jump from a diving board or from the side of the pool into it. I dowant to see her back in about 3 months and, at that point, we will obtainanother AP and lateral scoliosis film and likely be able to progress her tomore activities at that time.ATTENDING: Monty Reynolds M.D.CC:JOB: [id number]: [id number]: 04/06/2017 17:10:01 / ajDT: 04/09/2017 10:29:31 / sls........[facility] CenterXR SCOLI SPINE 2-3 VIEWSon [id number] SCOLI SPINE 2-3 [place], [place] [address]EFSXSPS IMAGING DEPARTMENT PATIENTNAME: YANETH DENNIS ORDER: BIRTHDATE: 2000 ACCT: [id number]: , MR: LOCATION: 100------- XR SCOLI SPINE 2-3 VIEWS ORDERING DOCTOR: NIKOLAI REYNOLDS INCLUDES ORDER #(S): Standing PA and lateral thoracolumbar spine: 04/06/2017 Comparison: March 19, 2017 Clinical History: Abnormal physical exam of the back. Evaluate forscoliosis. Findings: The study is performed with the patient upright. The patienthas 12 pairs of ribs. Spinal hardware is stable in appearance. A 3degree concave left curvature is measured between T10 and L2. A 27degree concave right curvature is measured between T5 and T11. 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 The iliac apophyses are Risser Stage IV. Thelungs are well aerated bilaterally. IMPRESSION: Scoliosis status post spinal fusion CATE CEBALLOS D.O. This document has been electronically reviewed and approvedby CATE CEBALLOS D.O.The above information is part of the patient's medical record and shouldbemaintained in a confidential manner consistent with medical recordpolicies.NormalMercy Health St. Elizabeth [facility]stown HospitalHEMOGLOBIN AND HEMATOCRIT on 97-62-1923Wnwxrowdsx (HCT)28.8 %Chz66-33WkjkydMercy Health St. Elizabeth Youngstown HospitalComment on above:Performed By: #### BMP ####[facility]Labor[facility] Services[address] [place] [address]Qodqkmmchd mass conc (Bld)9.6 g/dLLow 12.0-15.0Mer[facility] St. Elizabeth Youngstown HospitalComment on above:Performed By: #### BMP ####[facility] [place] [address]UD SCOLI SPINE 2-3 VIEWSon 49-45-9348IR SCOLI SPINE 2-3 VIEWSFIRELANDS REGIONAL MEDICAL CENTER SOUTH [place]USONE [place], [place] [address]UEMZAIC IMAGING DEPARTMENT PATIENTNAME: YANETH DENNIS ORDER: BIRTHDATE: 2000 ACCT: [id number]: , MR: LOCATION: [facility]------- XR SCOLI SPINE 2-3 VIEWS ORDERING DOCTOR: LEÓN KRAUSE INCLUDES ORDER #(S): Standing PA and lateral thoracolumbar spine: 03/19/2017. Comparison: 03/13/2017. Clinical History: Postop surgery for scoliosis. Findings: The study is performed with the patient upright. Screws androds have been placed and appear intact. The patient has 12 pairs ofribs. A 13 degree concave right curvature is measured between T1 and T5. A 22 degree concave left curvature is measured between T6 and T10. A 6degree concave right curvature is measured between T11 and L2. 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 The iliac apophyses are Risser Stage 4. Thelungs are well aerated bilaterally. IMPRESSION: Marked improvement in scoliosis postoperatively asdetailed. DUNG KILLIAN D.O. This document has been electronically reviewed and approvedby DUNG KILLIAN D.O.The above information is part of the patient's medical record and shouldbe maintained in a confidential manner consistent with medical recordpolicies.[facility] Medical CenterEK 12-LEADon [id number] 12-LEAD: Test Reason : CHEST PAIN/METHODON Blood Pressure : / mmHG Vent. Rate : 063 BPM Atrial Rate : 063 BPM P-R Int : 118 ms QRS Dur : 086 ms QT Int : 420 ms P-R-T Axes : 044 050 068 degrees QTc Int: 429 ms Sinus rhythm Normal intervals No hypertrophy Normal tracing Confirmed by Logan Mcdaniels MD ([id number]) on 03/18/2017 11:39:34 PM Referred By: DUNG QUICK MD Overread By: Logan Mcdaniels MD [facility] CenterHEMOGLOBIN AND HEMATOCRITon 96-74-6082Ixysknrbwf (HCT)30.6 %Qxc64-84WexukpMercy Health St. Elizabeth Youngstown HospitalComment on above:Performed By: #### BMP ####[facility]Labor[facility] [place] [address]Bshcsjosqi mass conc (Bld)10.2 g/dLLow12.0-15.0[facility] HospitalComment on above:Performed By: #### BMP ####[facility] GilbertLabor[facility] Services1 [facility] [address]IQ SURG C-ARM > 1 HRon 56-52-9295NQ SURG C-ARM > 1 [place], [place] [address]FYATYMH IMAGING DEPARTMENT PATIENTNAME: YANETH DENNIS ORDER: BIRTHDATE: 2000 ACCT: [id number]: , MR: LOCATION: [facility]------- FL SURG C- ARM > 1 HR ORDERING DOCTOR: NIKOLAI REYNOLDS ORDER #(S): Intraoperative fluoroscopy: 03/17/2017 Comparison: 03/13/2017 Clinical History: spinal fusion Findings: Intraoperative fluoroscopy was provided to Dr. Reynolds by theradiologic technologist. Fluoroscopy time was 58.7. 12 images weresaved, demonstrating assistance for pedicle screw placement. IMPRESSION: Fluoroscopy was provided as requested. TOPHER SMITH M.D. This document has been electronically reviewed and approvedby TOPHER SMITH M.D.The above information is part of the patient's medical record and shouldbe maintained in a confidential manner consistent with medical recordpolicies. [facility] Medical CenterISTAT, OPSon [id number] EXCESS?NegativeNormalDRegency Hospital CompanyComment on above:Performed By: #### CG8P ####[facility] GilbertLabor[facility] Services1 [facility] [address]Twebneqbbyt (HCO3)22 mmol/XBvexnk17-07ZdtwpfMercy Health St. Elizabeth Youngstown HospitalComment on above:Performed By: #### CG8P ####[facility] GilbertLabor[facility] Services1 [facility] [address]AT203.0 mmol/LFxmvze03-71OkbjhgMercy Health St. Elizabeth Youngstown HospitalComment on above:Performed By: #### CG8P ####[facility] GilbertLabor[facility] [place] [address]NY238.9 rcLpLydzwg91-70MpadaqMercy Health St. Elizabeth Youngstown HospitalComment on above:Performed By: #### CG8P ####[facility] [place] [address] Glucose mass conc99 mg/uTVrimcw63-489HlyyseMercy Health St. Elizabeth Youngstown HospitalComment on above: Performed By: #### CG8P ####[facility] [place] [address]Hwsnngauvy (HCT)31.0 %Yhf46-88FzkcljMercy Health St. Elizabeth Youngstown HospitalComment on above:Performed By: #### CG8P ####[facility] [place] [address]Mbarmojsck mass conc (Bld)10.5 g/dLLow12.5-16.1DRegency Hospital CompanyComment on above:Performed By: #### CG8P ####[facility] GilbertLabor[facility] Services82 [place] [address] 84717SNNXBUK CALCIUM1.24 mmol/LNormal1.1-1.35[facility] Elizabeth Youngstown HospitalComment on above:Performed By: #### CG8P ####[facility]1 [facility] 88992P5 ovaqlijzeo605 %NormalMercy Health St. Elizabeth Youngstown HospitalComment on above:Performed By: #### CG8P ####[facility] Gilbert[facility] Services[address] [place] [address] 90429Cxhuje in arterial wadcj034 mm[Hg]Vgfa99-95PelblxMercy Health St. Elizabeth Youngstown HospitalComment on above:Performed By: #### CG8P ####[facility] Gilbert[facility] [place] [address] 72136oN of blood7.399 [pH] Normal7.35-7.45[facility] HospitalComment on above:Performed By: #### CG8P ####[facility] [place] [address] 83245Gmvwnigqd molar conc3.6 mmol/LNormal3.5-5.3DRegency Hospital CompanyComment on above:Performed By: #### CG8P ####[facility] [place] [address] 78812Clkrsm061 mmol/LNormal 138-145[facility] HospitalComment on above:Performed By: #### CG8P ####[facility] [place] [address] 62599AFGG EXCESS?NegativeNormal [facility] HospitalComment on above:Performed By: #### CG8P ####[facility]1 [facility] [address] Bicarbonate (HCO3)17 mmol/CKxa10-09DymvypMercy Health St. Elizabeth Youngstown HospitalComment on above: Performed By: #### CG8P ####[facility] [place] [address] 85343KP200.0 mmol/NSli59-64ZknxgdMercy Health St. [facility] Hospital Comment on above:Performed By: #### CG8P ####[facility] Gilbert[facility]1 [facility] 25849II121.2 mmHgNormal 27-41[facility] HospitalComment on above:Performed By: #### CG8P ####[facility]1 [facility] 38483Yotbyly mass conc70 mg/wNTmhmod02-419ZqbiwyMercy Health St. Elizabeth Youngstown HospitalComment on above:Performed By: #### CG8P ####[facility]1 [facility] 88431Gecxqdhvaq (HCT)21.0 %Jap13-82ZviwyfMercy Health St. Elizabeth Youngstown HospitalComselect specialty hospital-[place] on above:Performed By: #### CG8P ####[facility] Gilbert[facility]1 [facility] [address] Hemoglobin mass conc (Bld)7.1 g/dLLow12.5-16.1DRegency Hospital CompanyComment on above:Performed By: #### CG8P ####[facility]1 [facility] 23469MKJUBIY CALCIUM0.65 mmol/LLow1.1-1.[address] [facility] HospitalComselect specialty hospital-[place] on above:Performed By: #### CG8P ####[facility]1 [facility] 60691V5 duhwqygbuv833 %NormalMercy Health St. Elizabeth Youngstown HospitalComselect specialty hospital-[place] on above:Performed By: #### CG8P ####[facility]1 [facility] 28274Ughlmc in arterial mm[Hg]Prmn86-89PeznjnMercy Health St. Elizabeth Youngstown HospitalComselect specialty hospital-[place] on above:Performed By: #### CG8P ####[facility]1 [facility] 74151qI of blood7.390 [pH] Normal7.35-7.45[facility] HospitalComment on above:Performed By: #### CG8P ####[facility]1 [facility] 06531Seruxbfpm molar conc2.2 mmol/LLow3.5-5.3DRegency Hospital CompanyComment on above:Performed By: #### CG8P ####[facility]1 [facility] 83113Auwses683 mmol/LHigh 138-145[facility] HospitalComment on above:Performed By: #### CG8P ####[facility]1 [facility] 61847XJMI EXCESS?NegativeNormal [facility] HospitalComment on above:Performed By: #### CG8P ####[facility]1 [facility] [address] Bicarbonate (HCO3)22 mmol/SVfxyur57-42WvywrfMercy Health St. Elizabeth [facility] HospitalComselect specialty hospital-[place] on above:Performed By: #### CG8P ####[facility] [place] [address] 66690ZV714.0 mmol/CGapmqd60-50KjrgzoMercy Health Anderson Hospital on above:Performed By: #### CG8P ####[facility]1 [facility] 23086PO7 31.0 rnJiBcrowm98-24CagfnmOhioHealth Berger Hospitalment on above:Performed By: #### CG8P ####[facility]1 [facility] 36264Rtcoaci mass conc82 mg/qDXqqauz33-429MlglnlMercy Health St. Elizabeth Youngstown HospitalComment on above:Performed By: #### CG8P ####[facility]1 [facility] 97858Haavmqfvnb (HCT)35.0 % Kffyof51-91AwmjbaMercy Health St. Elizabeth Youngstown HospitalComment on above:Performed By: #### CG8P ####[facility]1 [facility] 14697Wifpljaxan mass conc (Bld)11.9 g/dLLow12.5-16.1DRegency Hospital Company on above:Performed By: #### CG8P ####[facility]1 [facility] 50061UEGHYCS CALCIUM1.17 mmol/LNormal1.1-1.35[facility] HospitalComselect specialty hospital-[place] on above:Performed By: #### CG8P ####[facility]1 [facility] 92131M1 pvfgxmzyhd292 %NormalMercy Health Anderson Hospital on above:Performed By: #### CG8P ####[facility]1 [facility] 19853Bzbpqr in arterial mm[Hg]High 80-95[facility] HospitalComselect specialty hospital-[place] on above:Performed By: #### CG8P ####[facility]1 [facility] 17820eT of blood7.467 [pH]High7.35-7.45[facility] on above:Performed By: #### CG8P ####[facility]1 [facility] 63861Tfzgimxdw molar conc3.3 mmol/LLow 3.5-5.3DRegency Hospital CompanyComselect specialty hospital-[place] on above:Performed By: #### CG8P ####[facility]1 [facility] 69217Kevwzh388 mmol/CUquoeq093-762LfewbbMercy Health St. Elizabeth Youngstown HospitalComselect specialty hospital-[place] on above: Performed By: #### CG8P ####[facility]1 [facility] 10445XUSNRVCMB REPORTon [phone] REPORT [place], [place] [address]VDQNYZAHK REPORTPATIENT NAME: YANETH DENNIS LMRN: [id number] OF : 2000ACCT: [id number]: 3E [facility] ADATE OF SURGERY:03/17/2017ATTENDING SURGEON:Monty Reynolds M.D.RESIDENT SURGEON:Nini Hensley D.O.TIPPLE WORKER:Drea Gallo NP.ANESTHESIA:General endotracheal.PREOPERATIVE DIAGNOSIS:Adolescent idiopathic scoliosis.POSTOPERATIVE DIAGNOSIS:Adolescent idiopathic scoliosis.OPERATION:A T2-L3 posterior spinal fusion and T2-L3 posterior selective spinalinstrumentation.Application of allograft and autograft bone.Spinal neuromonitoring.ESTIMATED BLOOD LOSS:650 mL with 225 mL of Cell Saver returned.COMPLICATIONS:None.INDICATIONS:Patrick is a 16-year-old female who presented to my office earlier [id number] with a new diagnosis of scoliosis. On evaluation, I noted that she had a60 degree thoracic curve as well as a 40 degree lumbarcurve. I discussed therisks, benefits, and alternatives to this procedure with her parental guardianand we did obtain their parental guardian consent.DESCRIPTION OF PROCEDURE:Yaneth was met in the preanesthesia holding area where her back wasappropriately marked. She was taken back to the operative suite where IV lines,A-line, Bender, and neuromonitoring leads were placed. She was intubated by theanesthesiology service with an endotracheal tube. Then, we carefully rolled herinto a prone position on our Jose open frame table. We made sure all bonyprominences were well padded and that her arms and shoulders were in goodposition. Then, her back was pre-prepped with alcohol solution. She was thensterilely prepped and draped in normal sterile fashion. After she was sterilelyprepped and draped, we performed a timeout, correctly identifying the patient,the procedure to be performed in.We began by making a midline incision over the center of the back and the upperthoracic region down to the mid lumbar region. Bovie cautery was used todissect down through the dermal layer and subcutaneous tissues to the fascia.We cleared off the spinous processes with our Bovie cautery and then connectedthe dots of the spinous processes. We then continued our exposure the posteriorelements. Once we got out lateral enough in the thoracolumbar junction, weplaced a clamp over the transverse process ofone of the vertebrae and broughtin our C-arm fluoroscopy to identify our level. After we identifiedthe level,we continued our exposure to make sure we adequately exposed the posteriorelements of T2-L3.Once we finished our exposure, we then performed facetectomies at the levelsthat we are placing pedicle screws. We removed the inferior facets at thevertebra just above the levels where we replacedour pedicle screws. We beganplacing screws in the lumbar region. We used our [employer] VERSE System. Weplaced 6 x 45 mm screws at L3 and L2 and on the left at L1. We placed 6 x 40 mmscrew at the right at L1. We then placed a 6 x 40 mm screw at T11. We placed 5x 40 mm screws bilaterally at T10 and T9 on the right, on the left at T8, onthe left at T7, and on the left at T5. We placed a 5 x 35 mm screw on the rightat T8. We placed a 5 x 35 mm screw bilaterally at T4 and on the left at T3. Weplaced a 5 x 30 mm screw on the right at T3. All of these screws were placedusing anatomic landmarks and freehand. After those screws were placed, we didobtain AP and lateral views of all the screws andrevised them as needed. Wealso stimulated them with our EMG. We did revise the ones that stimulatedlowand at the end, all of them stimulated above 9. The right side of T4 stimulatedat 9 and the leftside of stimulated at 9. Those were checked and they felt tohave adequate bone around them. We thenused a lamina finder to place a hook atthe top of the T12 transverse process bilaterally. We then obtained a 5.5 mmcobalt chrome stephanie, bent it into some exaggerated thoracic kyphosis and alsotransitioned it into the lumbar lordosis in the lower region. We then worked itinto the reduction tulip-heads. Using some hospice superintendent tubings, we worked itdown in a drop-in technique, holding the stephanie and its sagittal alignment whilewe worked it down into the reduction heads. Once we secured the left-sided stephanie,we then underbent another 5.5 mm stephanie to help correct the rib hump deformity andalso place some lumbar lordosis in the bottom. We worked that stephanie as well intothe pedicles screws. Once we had both rods in, we secured our dual-threadedscrew heads, which were at T7, T8, and T9 on the left and T8, T9, and T10 onthe right. Also, the dual-threaded heads for the pedicle screws were bilaterallyat L1, L2,and L3. We locked the screw heads into a monoaxial construct. Then,we performed a derotation maneuver while we locked the inner screws down to therods. We then secured all of our pedicle screws and our hooks to the stephanie bytightening the set screws. We ended up changing out the dual-threaded screw toa regular screw heads because it to stripping when we tried to do the torquelimiter tightening. We did torque limit tighten all of the screws and hooks.We obtained another set of AP and lateral x-raysto verify our lordosis andkyphosis. We still maintained slight kyphosis in the thoracic region and had agood transition into lordosis in the lumbar region. None of the screw headswere protruding anteriorly. On the AP view, her lumbar region appeared levelwith L3-L4 disc appearing level. As we transitioned up, there appeared to belevel shoulder heights.We then washed the spine out using Vashe washsolution. We let it set for 2minutes and then we irrigated out with sterile saline. We decorticatedtheposterior elements of the spine and then placed our allograft and autograftbone. We used 90 mL of cortical cancellous allograft mixed in with theautograft facets and part of the spinous processes that we harvested. Then, 1gram of vancomycin was also mixed in with allograft and autograft bone. Wec losed the deep layer using 0 Vicryl in a cfqnvg-zp-vquks interrupted fashion.We closed the dermal layer using 2-0 Vicryl in a buried, interrupted fashion.We used 4-0 Monocryl in a running subcuticular fashion to close the superficiallayer. We placed Prineo Dermabond over the top of the incision. Once that set,we placed a Covaderm dressing on the back. I was present in attendancethroughout all critical portions of the case and immediately available duringthe closure.POSTOPERATIVE COURSE:Efra be admitted to the hospital. [facility] We will begin to mobilize her in the hospital and manage her pain. Whennatalya is more mobile, we will obtain an AP and lateralstanding scoliosis filmbefore she is discharged home. When she sees us back in clinic in approximately3-4 weeks, we will obtain a standing AP and lateral scoliosis x-ray.ATTENDING SURGEON: Monty Reynolds M.D.CC:Monty Reynolds M.D., Attending SurgeonJOB: [id number]: [id number]: 03/17/2017 17:29:47 / a jDT: 03/17/2017 21:30:39 / teNChildren's Hospital of ColumbusTYPE AND CROSS (CROSSMATCH)on [id number]/RH(D)PositiveCoshocton Regional Medical Center Comment on above:Performed By: #### XM ####[facility] [place] [address] 74192RWH/RH(D) RECHECK PositiveCoshocton Regional Medical CenterComment on above:Performed By: #### XM ####[facility] [place] [address] 34540UPPSNVSW SCREENNegativeCoshocton Regional Medical CenterComment on above: Performed By: #### XM ####[facility] [place] [address] 48976ZRZCC COMPONENT TYPEAS1/3 LEUKOREDUCED RBCNormal [facility] HospitalComment on above:Performed By: #### XM ####[facility]1 [facility] [address] CROSSMATCH EXPIRATION DATE03/20/2017NoSalem City HospitalComment on above:Performed By: #### XM ####[facility]1 [facility] 91367WSYODIKGIT RESULTCOMPATIBLESheltering Arms Hospital on above:Performed By: #### XM ####[facility] [place] [address] 38360YMZJVL UNITS NPCRELV2ZizmwrKaskehSalem City HospitalComment on above:Performed By: #### XM ####[facility]1 [facility] 47450KSJHMPG HISTORY CHECKPATIENT HISTORY CHECKEDSheltering Arms Hospital on above:Performed By: #### XM ####[facility]1 [facility] 32539UZQEXVHN CHECKSPECIMEN LABEL CHECKEDCoshocton Regional Medical CenterComment on above:Performed By: #### XM ####[facility]1 [facility] [address]YLTAAD OF [facility],[address] [place], [place] [address]CcheobWddxngCoshocton Regional Medical CenterComment on above:Performed By: #### XM ####[facility]1 [facility] 43261RSJKYUIBCLT STATUSOK TO TRANSFUSENormal [facility] HospitalComment on above:Performed By: #### XM ####[facility]1 [facility] [address] UNIT VVVGTMYU9WsobfiPaoytaCoshocton Regional Medical CenterComment on above:Performed By: #### XM ####[facility]1 [facility] 67881RBFA [id number] Regional Medical Center Comment on above:Performed By: #### XM ####[facility]1 [facility] 12242MTERD TESTon [id number] ( test) Ql (U)NegativeNormalNEGMercy Health St. Elizabeth Youngstown HospitalComment on above:Performed By: #### UCG ####[facility]Labor[facility] [place] [address] 24573VC CHEST 1 VIEWon [id number] CHEST 1 VIEWFIRELANDS REGIONAL MEDICAL [facility] S[facility] [place]USONE [place], [place] [address]SXFEFSX IMAGING DEPARTMENT PATIENTNAME: YANETH DENNIS ORDER: BIRTHDATE: 2000 ACCT: [id number]: , MR: LOCATION: [facility]------- XR CHEST 1 VIEW ORDERING DOCTOR: GERTRUDIS GALLO INCLUDES ORDER #(S): Portable chest, AP supine view: 03/17/2017 Comparison: None. Clinical History: Status post spinal fusion, postoperative chestradiograph Findings: Spinal hardware is in place. The heart and mediastinum havea normal appearance. The lungs are symmetrically aerated with noatelectasis or consolidation identified. No pleural effusion orpneumothorax is identified. No radiographic abnormality is identifiedin the upper abdomen. Residual scoliosis is present. IMPRESSION: Status post spinal fusion without pleural effusion orpneumothorax. CATE CEBALLOS D.O. This document has been electronically reviewed and approvedby CATE CEBALLOS D.O.The above information is part of the patient's medical record and shouldbe maintained in a confidential manner consistent with medical recordpolicies.NormalMercy Health St. Elizabeth [facility]stown HospitalBASIC METABOLIC PANELon [id number] (urea nitrogen)22 mg/dL Zbto02-86BtubugMercy Health St. Elizabeth Youngstown HospitalComment on above:Performed By: #### BMP ####[facility] [place] [address] 96344Aiskgnp7.5 mg/dLNormal9.0-11.0[facility] HospitalComment on above:Performed By: #### BMP ####[facility]Labor[facility]1 [facility] 25504Sjtogmkt362 mmol/CHowp72-980FmrcstMercy Health St. Elizabeth [facility] HospitalComment on above:Performed By: #### BMP ####[facility]Labor[facility]1 [facility] 80509YT848.0 mmol/IRvzywq84-59FxqxirBrecksville VA / Crille HospitalComment on above:Performed By: #### BMP ####[facility]Labor[facility] [place] [address] 33709Cvuznwbcbo7.6 mg/dLNormal0.4-1.1DRegency Hospital Company Comment on above:Performed By: #### BMP ####[facility]Labor[facility] [place] [address] 77643Tymkctn mass conc84 mg/iJFlvgfk02-227SoqvlxMercy Health St. [facility] HospitalComment on above:Performed By: #### BMP ####[facility]Labor[facility] [place] [address] 15448Dgtfkewyx molar conc3.8 mmol/LNormal3.5-5.3DRegency Hospital CompanyComment on above:Performed By: #### BMP ####[facility]Labor[facility] [place] [address] 00823Vnffrj124 mmol/LLow 138-145[facility] HospitalComment on above:Performed By: #### BMP ####[facility] GilbertLabor[facility] [place] [address] 62263PLU AND DIFFERENTIALon 23-02-6720Vpwdheqww/100 WBC Auto (Bld)0.8 %Normal 0-1DRegency Hospital CompanyComment on above:Performed By: #### CBCP ####[facility]Labor[facility] [place] [address] 40445 Eosinophils/100 leukocytes2.0 %Normal0-3DRegency Hospital CompanyComment on above:Performed By: #### CBCP ####[facility] GilbertLabor[facility] [place] [address] 31895Orwrhmlhysy distribution width Auto Ratio (RBC)13.9 %Ndmtxq26.5-14.5DRegency Hospital CompanyComment on above: Performed By: #### CBCP ####[facility]Labor[facility]1 [facility] 33192Xltwpnkwnofy (RBC)4.65 X 10X6/vt0Txlijq8.10-5.[address] [facility] HospitalComment on above:Performed By: #### CBCP ####[facility] GilbertLabor[facility] Services1 [facility] [address] Hematocrit (HCT)41.7 %Hiptcl47-97CieckzMercy Health St. Elizabeth [facility] HospitalComment on above: Performed By: #### CBCP ####[facility]Labor[facility] [place] [address] 43062RJZO SLIDE UWQNYZ291XibnomBxgpijSalem City HospitalComselect specialty hospital-[place] on above:Performed By: #### CBCP ####[facility]Labor[facility] [place] [address] 61231Nyrtvpltbn mass conc (Bld)13.9 g/qQUjqlwz90.0-15.0[facility] HospitalComselect specialty hospital-[place] on above: Performed By: #### CBCP ####[facility] Corporation[facility] [place] [address] 97389Hsdwjdzcbwe/100 .3 %Zcunkl09-[address] [facility] HospitalComselect specialty hospital-[place] on above:Performed By: #### CBCP ####[facility] Gilbert[facility] Services[address] [place] [address] 94516QZQ 29.9 ndRfwjhe70-24EdpkibMercy Health St. Elizabeth Youngstown HospitalComment on above:Performed By: #### CBCP ####[facility] Gilbert[facility] Services[address] [place] [address] 61786IYOS mass conc (RBC)33.4 g/iIYvccev42-87RohyjeMercy Health St. Elizabeth Youngstown HospitalComment on above:Performed By: #### CBCP ####[facility] [place] [address] 29859COH74.6 tTHwfkjo96-[address] [facility] HospitalComment on above:Performed By: #### CBCP ####[facility]1 [facility] [address] Monocytes/100 leukocytes7.6 %High0-5DRegency Hospital CompanyComment on above: Performed By: #### CBCP ####[facility] Gilbert[facility]1 [facility] [address]Oetlckgjlen/100 abdybqqocd86.3 %Bquxoi21-[address] [facility] Young[facility] HospitalComment on above:Performed By: #### CBCP ####[facility] Gilbert[facility]1 [facility] [address] ONLINE DIFF TYPEAUTOMATED DIFFERENTIALNormalDRegency Hospital CompanyComment on above:Performed By: #### CBCP ####[facility] Gilbert[facility]1 [facility] [address]Rasblbse mean volume (PMV)8.9 fLNormal 6.3-10.5DRegency Hospital CompanyComselect specialty hospital-pontiac on above:Performed By: #### CBCP ####[facility] Gilbert[facility]1 [facility] [address]Hwymxtoub619 x 10x3/sk4Vzuxpl221-985SgcekkMercy Health St. Elizabeth Youngstown HospitalComment on above:Performed By: #### CBCP ####[facility] Gilbert[facility]1 [facility] [address]CVY (Leukocytes)7.1 x 10x3/co6Aehsar 4.0-10.5DRegency Hospital CompanyComment on above:Performed By: #### CBCP ####[facility] GilbertLabor[facility]1 [facility] [address]DL, INR/APTTon 79-65-0618qPSO20.2 zUvptft76.1-35.7DRegency Hospital CompanyComment on above:Performed By: #### PPTT ####[facility] Gilbert[facility]1 [facility] [address]LQH Coag RelTime (Bld) 1.02 {INR}Normal0.90-1.170[facility] Elizabeth Youngstown HospitalComment on above:Performed By: #### PPTT ####[facility] Gilbert[facility]1 [facility] [address]Hsbnoudgtht time (PT) Coag time (PPP)12.9 sNormal 11.7-14.4DRegency Hospital CompanyComment on above:Performed By: #### PPTT ####[facility]1 [facility] [address]Vkyvwatg sourceVENIPUNCTURENormalDRegency Hospital CompanyComselect specialty hospital-pontiac on above:Result Comment: [facility],[address] [place], [place] [address]Enpaqgori By: #### PPTT ####[facility]1 [facility] [address]VL SCOLI SPINE 4-5 VIEWSon 40-92-5971TY SCOLI SPINE 4-5 [place], [place] [address]QZKGHSF IMAGING DEPARTMENT PATIENTNAME: YANETH DENNIS ORDER: BIRTHDATE: 2000 ACCT: [id number]: , MR: LOCATION: 100------- XR SCOLI SPINE 4-5 VIEWS ORDERING DOCTOR: NIKOLAI REYNOLDS ORDER #(S): Standing PA, lateral, right and left bending thoracolumbar spine and APwith Starla traction: 03/13/2017 Comparison: None. Clinical History: 16-year-old female with severescoliosis now forsurgical planning prior to fusion. Findings: The study is performed with the patient upright, lateral, andwith right and left bending as well as in traction. The patient has 12thoracic ribs bilaterally.. With the patient upright, a 32 degreelevoscoliosis is measured between T1 and T6. A 60 degreedextroscoliosis is measured between T7 and T10. A 41 degreeslevoscoliosis is measuredbetween T11 and L3. With the patient bendingto the left, the upper thoracic curve decreases to 29 degrees and thelumbar curve decreases to 20 degrees. With the patient bending to theright, the lower thoracic curve decreases to 40 degrees. With thepatient supine in traction, the upper thoracic curvemeasures 23degrees, the lower thoracic curve measures 43 degrees, and the lumbarcurve measures 32 de grees. The iliac apophyses are Risser stage IV. Thelungs are well aerated bilaterally. IMPRESSION: Severe thoracolumbar scoliosis partially corrects withbending and traction. SIRI BERRY M.D. This document has been electronically reviewed and approvedby SIRI BERRY M.D.The above information is part of the patient's medical record and shouldbe maintained in a confidential manner consistent with medical recordpolicies.[facility] Vital Signs Date TimeVital SignValuePerforming MmakzmppqMowavukb73-14-5956 13:01-0400Body mass index (BMI) [Ratio]27.52 kg/j0Vnbln WideOrbit Work Phone: Health Impact SolutionsBarnes-Jewish HospitalWcuvgbnxnq46-49-5607 13:01-040Body .1 kg StevensonTrifacta Work Phone: [facility] Impact SolutionsBarnes-Jewish HospitalSnkzbtgkfj27-81-9285 13:01-040Diastolic blood xwjqckoa95 mm[Hg]ICRTec Work Phone: Health Impact SolutionsSC Qpnofwtrky16-93-6608 13:01-040Systolic blood rfpvsvof795 mm[Hg]ICRTec Work Phone: [facility] HospitalZspvjvwfae03-45-9024 12:41-0400Body .7 cmFejose luis Galdamez WELL LOGGING MUD ANALYSIS CAPTAIN Work Phone: [facility] HospitalFfwnfbhsgx06-39-3548 12:41-0400Body mass index (BMI) [Ratio]28.95 kg/j7VoeyywpDemetrius Galdamez WELL LOGGING MUD ANALYSIS CAPTAIN Work Phone: [facility] HospitalWihytttwlb56-03-7082 12:41-0400Body kgdzee35.36 kgFejose luis Galdamez WELL LOGGING MUD ANALYSIS CAPTAIN Work Phone: [facility] HospitalJsxvaksqlu54-20-4440 12:41-0400Diastolic blood ieilmhbz82 mm[Hg]Demetrius Galdamez WELL LOGGING MUD ANALYSIS CAPTAIN Work Phone: [facility] HospitalLqymulytnr19-05-2249 12:41-0400Systolic blood cemztlbg979 mm[Hg]Demetrius Galdamez WELL LOGGING MUD ANALYSIS CAPTAIN Work Phone: [facility] HospitalPirvogzknc76-37-3058 13:17-0400Body tyxwbm546.7 cmSumeet De La Cruz MD Work Phone: [facility]05-21-2025 13:17-0400Body mass index (BMI) [Ratio]29.16 kg/t8NmpxeoeSumeet De La Cruz MD Work Phone: [facility]05-21-2025 13:17-0400Body xyauqq31 kg Sumeet De La Cruz MD Work Phone: [facility]05-21-2025 13:17-0400Diastolic blood yeqmqcsp12 mm[Hg]Sumeet De La Cruz MD Work Phone: [facility]05-21-2025 13:17-0400Heart rate70 /min Sumeet De La Cruz MD Work Phone: [place] [address]-21-2025 13:17-0400Respiratory rate 18 /minDcarson De La Cruz MD Work Phone: [facility]05-21-2025 13:17-3154DxK3% (BldA) [Mass fraction]99 %Sumeet De La Cruz MD Work Phone: [place] [address]-21-2025 13:17-0400Systolic blood bibotpnb576 mm[Hg]Sumeet De La Cruz MD Work Phone: [facility]02-11-2025 13:34-0500Blood Pressure LocationJALEANDER SOLARES 977-2008Otpulw-MhduqSumma Health [facility] 10-29-2024 13:34-0500Diastolic blood tntsdrnu50 mm[Hg]LEIDA SOLARES 249-7100Zewijy-UfljnSumma Health [facility] 10-29-2024 13:34-0500Heart rate76 /minLEIDA SOLARES 151-1506Ldburd-QvljcSumma Health [facility] 10-29-2024 13:34-1457ZwN1% (BldA) [Mass fraction]97 %LEIDA SOLARES 120-7394Sjjhbv-XynjrSumma Health [facility] 10-29-2024 13:34-0500Systolic blood urjrwnxh864 mm[Hg]LEIDA SOLARES 048-8212Kyrqgt-JspdeSumma Health [facility] 09-24-2024 08:34-0500Blood Pressure LocationLEIDA SOLARES 383-4077Jfvrep-NvjuwSumma Health [facility] 09-24-2024 08:34-0500Diastolic blood mm[Hg]LEIDA SOLARES 615-6461Okxsjy-AoviwSumma Health [facility] 09-24-2024 08:34-0500Heart rate85 /minLEIDA SOLARES 639-2098Sfpysr-PoxxsSumma Health [facility] 09-24-2024 08:34-8409GnL8% (BldA) [Mass fraction]98 %LEIDA SOLARES 025-3358Yugfiw-IkvpuSumma Health [facility] 09-24-2024 08:34-0500Systolic blood jkcxtybv721 mm[Hg]LEIDAMarvin SOLARES 529-7812Ufaiee-IlbziSumma Health [facility] Campus 08-29-2024 14:53-0500Diastolic blood azshncql10 mm[Hg]LEIDAMarvin SOLARES 411-9511Kgdsjx-KadolOhiohealth [facility] 08-29-2024 14:53-0500Heart rate72 /minLEIDA SOLARES 855-5345Ljgewr-SjncoOhiohealth [facility] 08-29-2024 14:53-3315JcF6% (BldA) [Mass fraction]98 %LEIDAMarvin SOLARES 854-5195Hmzaft-OreuuOhiohealth [facility] 08-29-2024 14:53-0500Systolic blood nqnkekzd405 mm[Hg]LEIDAMarvin SOLARES 166-9134Dpuluz-VumzeOhiohealth [facility] 03-12-2024 15:57-0400Diastolic blood eclbfkrm67 mm[Hg]Bianka ROBUCK 924-5220Jjenbc-ZtrpaOhiohealth [facility] 03-12-2024 15:57-0400Heart rate60 /minHalnicolette ROBUCK 152-9786Eqhsxc-BqjehOhiohealth [facility] 03-12-2024 15:57-2498MnG5% (BldA) [Mass fraction]98 %Bianka ROBUCK 206-2696Fvqhdp-EejlmOhiohealth [facility] 03-12-2024 15:57-0400Systolic blood ulrvixnj918 mm[Hg]Bianka ROBUCK 760-7715Xmbyxm-AjnyxOhiohealth [facility] 02-13-2024 15:11-0400Diastolic blood mowxdfsb13 mm[Hg]Ilya Ellingtone [facility]05-28-2024 15:11-0400Heart rate81 /minIlya Patel [address]05-28-2024 15:11-0400Mean blood lmwemfzi36 mm[Hg]Ilya Patel [address]05-28-2024 15:11-0400 Respiratory rate16 /minIlya Patel [address]05-28-2024 15:11-5080PdR8% (BldA) [Mass fraction]97 %Ilya Patel [address]05-28-2024 15:11-0400 Systolic blood jyvbxmbd925 mm[Hg]Ilya Patel [address]05-28-2024 14:07-0400 Diastolic blood mm[Hg]Ilya Patel [address]05-28-2024 14:07-0400Heart rate67 /minIlya Patel [address]05-28-2024 14:07-0400Mean blood niiakclw86 mm[Hg]Ilya Patel [address]05-28-2024 14:07-0400 Respiratory rate13 /minIlya Patel [address]05-28-2024 14:07-3219DiE6% (BldA) [Mass fraction]98 %Ilya Patel [address] [place], [place] 7183405-28-2024 14:07-0400 Systolic blood rmkfuljg526 mm[Hg]Ilya Patel [address]05-28-2024 13:30-0400 Diastolic blood zhjkxcuo76 mm[Hg]Ilya Patel [address] [place], [place] 7183405-28-2024 13:30-0400Heart rate47 /minIlya Patel [address] [place], [place] 4964005-28-2024 13:30-0400Mean blood njmofflu78 mm[Hg]Ilya Patel [address] [place], [place] 7183405-28-2024 13:30-0400 Respiratory rate19 /Jason Patel [address]05-28-2024 13:30-7900RvH2% (BldA) [Mass fraction]98 %Ilya Patel [address]05-28-2024 13:30-0400 Systolic blood ouflbytm012 mm[Hg]Ilya Patel [address]05-28-2024 12:48-0400Body pxzohfymbhv93.6 [degF]Ilya Patel [address]05-28-2024 12:48-0400Heart rate59 /Jason Patel [address] [place], [place] 7183405-28-2024 12:48-0400 Respiratory rate18 /Jason Patel [address]05-10-2024 15:31-0400Body irylpxawhkc10.88 [degF]Candelario Wilhelm [address]05-10-2024 15:31-0400 Diastolic blood nkeaxvqq00 mm[Hg]Candelario Wilhelm [address] [place], [place] 7183405-10-2024 15:31-0400Heart rate70 /Jenny Wilhelm [address] [place], [place] 7183405-10-2024 15:31-0400 Respiratory rate16 /minCandelario Wilhelm [address] [place], [place] 7183405-10-2024 15:31-0677LxP6% (BldA) [Mass fraction]100 %Candelario Wilhelm [address]05-10-2024 15:31-0400 Systolic blood bpogsvdd023 mm[Hg]Candelario Wilhelm [facility]04-16-2024 13:16-0400Body bhvyek596.7 cmSumeet De La Cruz MD Work Phone: [facility]04-16-2024 13:16-0400Body mass index (BMI) [Ratio]32.21 kg/x4KsycgywSumeet De La Cruz MD Work Phone: [facility]04-16-2024 13:16-0400Body sxijhb02.1 kgSumeet De La Cruz MD Work Phone: [facility]04-16-2024 13:16-0400Diastolic blood bxfhthad58 mm[Hg]Sumeet De La Cruz MD Work Phone: [facility]04-16-2024 13:16-0400Heart rate62 /min Sumeet De La Cruz MD Work Phone: [facility]04-16-2024 13:16-6350WpW5% (BldA) [Mass fraction]99 %Sumeet De La Cruz MD Work Phone: [facility]04-16-2024 13:16-0400Systolic blood hrpphnlu613 mm[Hg]Sumeet De La Cruz MD Work Phone: [facility]02-29-2024 14:39-0500Diastolic blood qpzeboop26 mm[Hg]Bianka WOODS 884-8700Ybxaqg-OtrfsOhiohealth [facility] 11-16-2023 14:39-0500Heart rate55 /minHaley ROBUCK 817-2776Mdwkws-OgbbeOhiohealth [facility] 11-16-2023 14:39-0500Respiratory rate16 /minHaley ROBUCK 828-6236Phuysm-UmnzeOhiohealth [facility] 11-16-2023 14:39-5268PtN6% (BldA) [Mass fraction]100 %Bianka ROBUCK 972-2560Exongy-EkmvwOhiohealth [facility] 11-16-2023 14:39-0500Systolic blood hsneqgdf877 mm[Hg]Bianka WOODS 988-3214Ivjquw-CtpeaOhiohealth [facility] 10-05-2023 14:44-0500Diastolic blood yyhqyyit38 mm[Hg]Bianka WOODS 814-2330Vkgrme-NhqxpOhiohealth [facility] 10-05-2023 14:44-0500Heart rate73 /minBianka WOODS 521-5578Sblegs-PygzzOhiohealth [facility] 10-05-2023 14:44-7303WlM4% (BldA) [Mass fraction]98 %Bianka WOODS 269-6088Nznyyd-NgmqbOhiohealth [facility] 10-05-2023 14:44-0500Systolic blood vtzkudty765 mm[Hg]Bianka WOODS 139-7707Qeaelx-XyzjuOhiohealth [facility] 08-28-2023 11:30-0500Body ffxkyo812.7 cmSumeet De La Cruz MD Work Phone: [facility]12-11-2023 11:30-0500Body ezbidp21.53 kgSumeet De La Cruz MD Work Phone: [facility]12-11-2023 11:30-0500Diastolic blood rpqdxquo81 mm[Hg]Sumeet De La Cruz MD Work Phone: [facility]12-11-2023 11:30-0500Heart rate63 /min Sumeet De La Cruz MD Work Phone: [facility]12-11-2023 11:30-0500Respiratory rate 18 /minDcarson De La Cruz MD Work Phone: [facility]12-11-2023 11:30-3164JtB6% (BldA) [Mass fraction]99 %Sumeet De La Cruz MD Work Phone: [facility]12-11-2023 11:30-0500Systolic blood bmlreyzp714 mm[Hg]Sumeet De La Cruz MD Work Phone: [facility]11-13-2023 13:02-0500Body jwhavb498.7 cmSumeet De La Cruz MD Work Phone: [facility]11-13-2023 13:02-0500Body temperature 97.81 [degF]Sumeet De La Cruz MD Work Phone: [facility]11-13-2023 13:02-0500Body rpgogq76.17 kgSumeet De La Cruz MD Work Phone: [facility]11-13-2023 13:02-0500Diastolic blood wywbazkj43 mm[Hg]Sumeet De La Cruz MD Work Phone: [facility]11-13-2023 13:02-0500Heart rate95 /min Sumeet De La Cruz MD Work Phone: [facility]11-13-2023 13:02-0500Respiratory rate 16 /minDcarson De La Cruz MD Work Phone: [facility]11-13-2023 13:02-1296UmR4% (BldA) [Mass fraction]97 %Sumeet De La Cruz MD Work Phone: [facility]11-13-2023 13:02-0500Systolic blood bpvijyql254 mm[Hg]Sumeet De La Cruz MD Work Phone: [facility]10-30-2023 16:01-0400Diastolic blood ibqovvnt30 mm[Hg]Ilya Patel [facility]10-30-2023 16:01-0400Heart rate98 /Jason Patel [facility]10-30-2023 16:01-0400 Respiratory rate14 /Jason Patel [facility]10-30-2023 16:01-1116EfZ8% (BldA) [Mass fraction]99 %Ilya Patel [address] [place], [place] 7183410-30-2023 16:01-0400 Systolic blood sirjkwnt143 mm[Hg]Ilya Patel [address] [place], [place] 7183410-30-2023 15:05-0400 Diastolic blood ghrzouzo64 mm[Hg]Ilya Patel [address] [place], [place] 7183410-30-2023 15:05-0400Heart rate83 /minJodipika Patel [address] [place], [place] 7183410-30-2023 15:05-0400 Respiratory rate14 /minJohn Amanda [address] [place], [place] 7183410-30-2023 15:05-4297ZdF2% (BldA) [Mass fraction]98 %Ilya Patel [address] [place], [place] 7183410-30-2023 15:05-0400 Systolic blood mgadprzf54 mm[Hg]Ilya Patel [address] [place], [place] 7183410-30-2023 13:39-0400Body tadbebnybpj01.6 [degF]Ilya Patel [address] [place], [place] 7183410-30-2023 13:39-0400 Diastolic blood dwuofbhv26 mm[Hg]Ilya Patel [address] [place], [place] 7183410-30-2023 13:39-0400Heart tdnx465 /minIlya Patel [address] [place], [place] 7183410-30-2023 13:39-0400 Respiratory rate20 /minJodipika Patel [address] [place], [place] 7183410-30-2023 13:39-6913HmV1% (BldA) [Mass fraction]100 %Ilya Patel [address] [place], [place] 7183410-30-2023 13:39-0400 Systolic blood czeaquyv569 mm[Hg]Ilya Patel [facility]05-26-2023 11:41-0400Blood Pressure LocationDERIK SIDELL 239-0828Eybems-TaaffSumma Health [facility] 02-10-2023 11:41-0400Diastolic blood pmxtveps34 mm[Hg]CHRISTOPHER SIDELL 493-7766Xnkykc-JvisxSumma Health [facility] 02-10-2023 11:41-0400Heart rate70 /minDERIK SIDELL 620-4602Wuesaj-WaancSumma Health [facility] 02-10-2023 11:41-3814EyI6% (BldA) [Mass fraction]98 %CHRISTOPHER SIDELL 064-1253Mljout-TyvkkSumma Health [facility] 02-10-2023 11:41-0400Systolic blood qgalvlow977 mm[Hg]CHRISTOPHER SIDELL 071-2354Satxqk-HdpdrSumma Health [facility] 10-06-2022 16:27-0500Blood Pressure LocationGmory FLORA 939-5870Wsycgh-MydqfSumma Health [facility] Campus 10-06-2022 16:27-0500Body kyzsujhaspa09.98 [degF]Britany FLORA 963-0633Wukwpe-HfrsdSumma Health [facility] 10-06-2022 16:27-0500Diastolic blood chrffakp49 mm[Hg]Britany FLORA 990-5587Bhdabp-AntotSumma Health [facility] Campus 10-06-2022 16:27-0500Heart rate94 /minGmory FLORA 847-3044Zbdqhm-UwcccSumma Health [facility] 10-06-2022 16:27-2731CwJ6% (BldA) [Mass fraction]98 %Britany FLORA 937-3135Ullfxa-GhtnrSumma Health [facility] Campus 10-06-2022 16:27-0500Systolic blood mqdynhvw753 mm[Hg]Britany FLORA 827-5278Xnaijm-WvdcySumma Health [facility] Campus 07-06-2022 17:06-0400Body wcarpudfucq18.34 [degF]Britany HINES 644-9417Utkzce-CtcbsSumma Health [facility] Campus 07-06-2022 17:06-0400Diastolic blood hrdkpbla69 mm[Hg]Britany HINES 108-9493Tkzpyq-XibewSumma Health [facility] 07-06-2022 17:06-0400Heart rate89 /minBritany HINES 146-1911Uoxqtu-ScrlvSumma Health [facility] Campus 07-06-2022 17:06-7391DfY8% (BldA) [Mass fraction]98 %Britany HINES 083-6264Iwkjwd-NiuffSumma Health [facility] 07-06-2022 17:06-0400Systolic blood mm[Hg]Britany HINES 609-1833Clwqdy-VuwewSumma Health [facility] Campus 04-21-2022 15:06-0400Blood Pressure LocationGmjameson HINES 493-7920Jggjcs-ZlcewSumma Health [facility] Campus 08-04-2022 15:06-0400Body fprycrjgmem89.7 [degF]Britany HINES 299-1033Lstrxn-GnudlSumma Health [facility] Campus 08-04-2022 15:06-0400Diastolic blood mm[Hg] Britany HINES 538-1858Oktnup-JlgzgSumma Health [facility]ron Campus 08-04-2022 15:06-0400Heart rate79 /minBritany HINES 525-8426Yrhxfv-HmjjaSumma Health [facility] Campus 08-04-2022 15:06-5602CkW9% (BldA) [Mass fraction]99 % Britany HINES 620-5193Scxcki-MqhnnSumma Health [facility] Campus 08-04-2022 15:06-0400Systolic blood vkprawjy429 mm[Hg] Britany HINES 502-4294Lnysww-LkbekSumma Health [facility] Campus 06-15-2022 16:03-0400Blood Pressure LocationLoretta Morales 548-0409Pgcxwz-AhfqpSumma Health [facility] 06-15-2022 16:03-0400Body .7 [degF]Loretta Morales 307-6527Dqkvvo-CksadSumma Health [facility] Campus 06-15-2022 16:03-0400Diastolic blood gvjillsk59 mm[Hg] Loretta Morales 827-5961Pvenfe-LnxvvSumma Health [facility] Campus 06-15-2022 16:03-0400Heart rate85 /minLoretta Morales 331-6617Rdoftb-SxxojSumma Health [facility] Campus 06-15-2022 16:03-1740LmD5% (BldA) [Mass fraction]99 % Loretta Morales 417-7771Rpthez-WjvroSumma Health [facility]ron Campus 06-15-2022 16:03-0400Systolic blood ixnxgraj572 mm[Hg] Loretta Morales 084-8521Tqcjlz-LurqwSumma Health Akron Campus Encounters Encounter DateEncounter TypeCare ProviderFacilityStart: 07-06-2025 End: 76-88-6895Autzctnpb department patient visitMajonas Srivastava [facility]: 06-26-2025 End: 97-96-4515iawiwlxkavBXTJVM R CIERSEZWSKIFacility:[facility]Start: 06-26-2025 End: 41-71-2735Ofldbzi encounter procedureLEIDA SOLARES 702-1348Enpwlx-WijwiSumma Health Akron Campus Start: 06-16-2025 End: 73-28-4882wuejvpaomfDBHSDUNK EBERLYNot AvailableStart: 06-02-2025 End: 79-68-5963Hlpvik flowsheetCorey Margi DO Work Phone: [facility] [place] [facility]BGYNStart: 06-02-2025 End: 28-63-2464Sfgmsw flowsheetCorey Margi DO Work Phone: [facility]BGYNStart: 06-02-2025 End: 67-53-5477Qdysfa outpatient visit 15 minutesCorey Margi DO Work Phone: [facility]BGYNComment on above:PCOS (polycystic ovarian syndrome) (Primary Dx); Pelvic congestion syndrome; Follow-up examStart: 06-02-2025 End: 48-43-0706ojopvjrszmHTNWP FAZIONot AvailableStart: 05-28-2025 End: 57-95-4325xflmmkfuuvQLKXXW R CIERSEZWSKIFacility:[facility] RehabilitationStart: 05-28-2025 End: 44-67-6172Qpdewbh encounter procedureLEIDA SOLARES 987-7807Krzhue-PxsofSumma Health Akron Campus Start: 05-25-2025 End: 82-75-0263Wzbyxpzlk department patient visitCandelario WilhelmFacility:[facility] Start: 05-13-2025 End: 62-92-2739iudhtvvzmrNENPJP R CIERSEZWSKIFacility:[facility] RehabilitationStart: 05-13-2025 End: 34-74-1221Fquweha encounter procedureLEIDA SOLARES 944-5254Apjqje-DhkdfSumma Health [facility] Campus Start: 04-29-2025 End: 09-01-3818Zwmkulgig department patient visitCandelario WilhelmFacility:[facility] Start: 04-21-2025 End: 04-39-0622Fyfohg outpatient visit 15 minutesJoshua Garcia NP Work Phone: [facility] OBGYNComment on above:Dysmenorrhea (Primary Dx); Breast lump in female; Pelvic pain in female; Menorrhagia with irregular cycleStart: 04-21-2025 End: 96-94-0220Meixrm Rashaun Garcia WE[employer] LOGGING M[employer] ANALYSIS CAPTAIN Work Phone: [facility] OBGYNStart: 04-21-2025 End: 91-01-1503Mhiyla Rashaun Garcia WE[employer] LOGGING MUD ANALYSIS CAPTAIN Work Phone: no[facility] OBGYNStart: 04-21-2025 End: 49-23-5090hhmtosxajdDYFAXIBU EBERLYNot AvailableStart: 75-23-9320jqigyusyurstephane Villalobos [facility] Centertart: 04-08-2025 End: 52-22-7614uqfknfryimGICMII R CIERSEZWSKIFacility:[facility] RehabilitationStart: 04-08-2025 End: 74-77-2371Kalmdcr encounter procedureJALEANDER SOLARES 042-4691Qamvbr-YbuffSumma Health [facility] Campus Start: 03-06-2025 End: 94-34-7822squvlfhatzDRLKQU Dom SOLARESFacility:[facility] RehabilitationStart: 03-06-2025 End: 41-20-8165Szvodik encounter procedureJACLYN Dom SOLARES [phone]-SuuypSumma Health [facility] Campus Start: 02-18-2025 End: 78-97-7431umfbbwpnyvIJUKCJ Dom SOLARESFacility:[facility] RehabilitationStart: 02-18-2025 End: 77-34-3004Ebeidik encounter procedureJACLYN Dom SOLARES [phone]-OnkvqSumma Health [facility]ron Campus Start: 02-12-2025 End: 75-93-2121Jkkchb flowsheetFelicia C Windnagel [employer] CAP[employer] Work Phone: [facility] NEUROLOGYStart: 02-12-2025 End: 75-24-2283Kbmmly flowsheetFelicia C Windnagel [employer] CAPTAIN Work Phone: [facility] NEUROLOGYStart: 02-12-2025 End: 50-23-1809Mgezqsmag encounterSumeet De La Cruz MD Work Phone: NeurologyComment on above:Results; Patient Question Start: 02-12-2025 End: 40-58-7427dkhdykkekrOGSEHOE C WINDNAGELNot AvailableStart: 02-12-2025 End: 98-21-9781Irlahk outpatient new 45 minutesFelicia C Windnagel [employer]NAL[employer] CAPTAIN Work Phone: [facility] NEURComment on above:Osteoarthritis of lumbar spine, unspecified spinal osteoarthritis complication status (Primary Dx)Start: 78-35-2337zmuebfwsofLHDPLXR PHILIPPIFacility:[facility]htart: 02-09-2025 End: 53-04-6792Iwysagzogo hospital visit by physicianCt [facility] ([facility]) Work Phone: [facility] Radiology CT ScanComment on above: Arthrodesis status [Z98.1]Start: 02-05-2025 End: 90-91-8649Mfzissm encounter procedureSumeet De La Cruz MD Work Phone: Spine InstituteComment on above:Arthrodesis status (Primary Dx); Spinal stenosis of cervical regionStart: 02-05-2025 End: 33-56-0602vhtyxfqumqWIELYOU PELLEFacility:[facility]ertart: 02-04-2025 End: 48-41-6189ursdoyjtxzMUCUAZSara SOLARESFacility: MilanStart: 02-04-2025 End: 79-56-9952Fgayhpq encounter procedureLEIDA SOLARES [phone]-RgnoiSumma Health [facility]ron Campus Start: 01-22-2025 End: 09-48-8347wdamgbsnasNuecjfe Pelle MD Work Phone: kwy InstituteComment on above:BackStart: 01-16-2025 End: 12-28-9966miurelopceShzgufg Pelle MD Work Phone: spine InstituteComment on above:BackStart: 01-08-2025 End: 25-74-2621oowdgazndkDZOQPXSara SOLARESFacility:[facility] RehabilitationStart: 01-07-2025 End: 68-77-4473ptjwieogvjGmtlxgo Pelle MD Work Phone: spine InstituteComment on above:My backStart: 12-23-2024 End: 06-72-8911Nxvbidbcb encounterSumeet De La Cruz MD Work Phone: NeurologyComment on above:Erroneous encounter-disregardStart: 12-13-2024 End: 20-23-4414Ebr-admission assessmentLEIDA SOLARES [facility] Start: 12-12-2024 End: 14-51-3872pysutgvibkVHAHumberto SOLARESFacility:FTMCStart: 12-12-2024 End: 10-52-7984Gys Drop offLEIDA SOLARES [facility] Start: 12-12-2024 End: 21-63-7695ohhbseyiueJJY-C LEIDA SOLARESFacility: MilanStart: 12-09-2024 End: 45-17-5956cynrdcaiarLwrpj L ButlerFacility:[facility] HealthStart: 11-27-2024 End: 56-84-7456dmbazxeaisIMA-C LEIDA SOLARESFacility: MilanStart: 11-25-2024 End: 90-57-4250axhgqjslqtIgncals Pelle MD Work Phone: Sptmd InstituteComment on above:Really bad back pain and it looks like there s a lumpStart: 11-24-2024 End: 28-71-2046Smbqejbhf department patient visitTim ThomasFacility:FTMCStart: 11-19-2024 End: 28-83-5411bxgafslzisOdpxm L ButlerFacility:Behavioral HealthStart: 11-19-2024 End: 16-83-0233Hqbjypz encounter procedureJacey Zhang [facility] start: 10-29-2024 End: 98-21-2845cweriucgpdVXGHumberto SOLARESFacility:[facility] RehabilitationStart: 10-29-2024 End: 84-18-7960Udfjhwk encounter procedureLEIDA SOLARES [phone]-UzdiuSumma Health Akron Campus Start: 10-14-2024 End: 35-11-9174xksvpcicpcDYCHumberto SOLARESFacility:FTMCStart: 10-14-2024 End: 31-92-5707Vaoydzo encounter procedureLEIDA SOLARES [facility] Start: 10-02-2024 End: 40-93-5142nvlrcepmvfQlopb L ButlerFacility:Behavioral HealthStart: 10-02-2024 End: 92-32-0011Rckqlbd encounter procedureJacey Zhang [facility] start: 09-24-2024 End: 56-70-7757bfsbqrtqycLWYLANDY SOLARESFacility:[facility] RehabilitationStart: 09-24-2024 End: 53-81-3972Gvqvhox encounter procedureLEIDA SOLARES [phone]-CltsvSumma Health Akron Campus Start: 09-03-2024 End: 71-24-6168siviaqgbddVicdy L ButlerFacility:Behavioral HealthStart: 09-03-2024 End: 37-10-8240Tyaaskc encounter procedureLaura L [facility] start: 08-30-2024 End: 87-85-2998qgmpkmjtxqCQLLANDY SOLARESFacility:[facility]ENTERtart: 08-30-2024 End: 85-75-5086Vcwpssw encounter procedureLEIDA SOLARES [facility] Start: 08-29-2024 End: 10-54-0467wpbsmhfbcnENXLANDY SOLARESFacility:[facility] HospitalStart: 08-29-2024 End: 73-58-6747Ylvtpab encounter procedureLEIDA SOLARES [phone]-OikcwOhiohealth Grant Medical Center Start: 08-14-2024 End: 63-52-6393qmjsoelxjoLOGYang SOLARESFacility:[facility] RehabilitationStart: 08-14-2024 End: 36-07-0117Cvkvdae encounter procedureLEIDA SOLARES [phone]-PvwcvSumma Health [facility] Campus Start: 08-13-2024 End: 14-19-1263mmeoamymolKoigr Leatha ButlerFacility:Behavioral HealthStart: 08-13-2024 End: 32-81-9821Vngzsii encounter procedureLaura L [facility] start: 04-16-2024 End: 61-11-0319rxsfaubqgzTtqaj L ButlerFacility:Behavioral HealthStart: 04-16-2024 End: 56-83-4664Wtgkwpr encounter procedureJacey PonceDayton [facility] start: 44-79-2867qmswoxdnevXokfl L Butler Facility:Behavioral HealthStart: 03-14-2024 End: 26-28-1311srhckhveuwSnqey E ROBUCKFacility:FTMCStart: 03-14-2024 End: 81-51-8836Wltfxni encounter procedureHalnicolette WOODS [facility] Start: 03-12-2024 End: 69-45-9656Nsvgtgd encounter procedureBianka WOODS [phone]-VsdweOhiohealth Grant Medical Center Start: 03-12-2024 End: 86-66-5866bkjmjfezosDGI Bianka WOODSFacility:[facility] HospitalStart: 89-56-6665smnfytuwmcFfzxo L ButlerFacility:Behavioral HealthStart: 02-13-2024 End: 06-95-1861Fwmhfzcdw department patient visitJohn ParenteFacility:FTMILLER [facility]IL[facility] HOSPITALtart: 02-13-2024 End: 69-42-1541Ojejcxlfv department patient visitFormerly [facility] Amanda [facility] Start: 02-07-2024 End: 42-26-9341wmlmvjctwxBBA Haley E ROBUCKFacility:[facility] HospitalStart: 02-07-2024 End: 08-68-6045Kfgjktm encounter procedureHalnicolette WOODS [phone]-WzztrOhiohealth Grant Medical Center Start: 82-68-3855dmxhzrizeoSjunx L Butler Facility:Behavioral HealthStart: 01-26-2024 End: 99-01-5015Fwssuujhh department patient visitCandelario Wilhelm [facility] Start: 20-81-3600pklfygntohBVM Bianka WOODS Facility:[facility]Start: 01-16-2024 End: 21-53-9495uielwrfhvjQeybl Leatha ButlerFacility:Behavioral HealthStart: 01-16-2024 End: 17-54-5588Kolxklp encounter procedureMetroHealth [facility] start: 01-12-2024 End: 61-68-3587Picljkping hospital visit by physiciani Radio [facility] (I-Stat/1.5t)RadiologyComment on above:Canceled (CC cx: Financial)Start: 47-16-7651anhlzfbmwiLenbtjs Pelle MD Work Phone: spine InstituteComment on above:MRIStart: 01-09-2024 ambulatorySumeet De La Cruz MD Work Phone: spine InstituteComment on above:My MRIStart: 01-04-2024 End: 07-27-6950sjfdlcrvpbFfcpw L ButlerFacility:Behavioral HealthStart: 01-04-2024 End: 43-79-4840Eqyrujk encounter procedureMetroHealth [facility] start: 01-02-2024 End: 08-23-7494Yyaklea encounter Joseline De La Cruz MD Work Phone: spine InstituteComment on above: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); Chronic bilateral low back pain without sciaticaStart: 12-14-2023 End: 10-57-9404fqjjpzoajkIqutg Leatha ButlerFacility:Behavioral HealthStart: 12-14-2023 End: 95-24-5050Xlahhkz encounter procedureMetroHealth [facility] start: 30-92-8352niqfnkqwncYbhjzpl Pelle MD Work Phone: spine InstituteComment on above:My backStart: 76-88-4224suuqwonietOijdq ButlerFacility:Behavioral HealthStart: 11-16-2023 End: 07-07-4273lvawwccnfpXPH Bianka WOODSFacility:[facility] HospitalStart: 11-16-2023 End: 61-07-6053Qaxhwgb encounter Gautam WOODS [phone]-KnjpoOhiohealth Grant Medical Center Start: 10-26-2023 End: 81-93-1624hqfudkvrwxIsvu M StreetOwlzulma PT Work Phone: noms NM PTComment on above:DDD (degenerative disc disease), thoracolumbar (Primary Dx); History of spinal fusionStart: 84-42-5766Kswpv Domonique Morales PT Work Phone: noms NM PTStart: 10-24-2023 End: 77-96-7810zgzoxiahioKbuhreas Cox PTANOMS NM PTComment on above:DDD (degenerative disc disease), thoracolumbar (Primary Dx); History of spinal fusionStart: 10-05-2023 End: 68-67-6348yqexeffxqvFXA Bianka WOODSFacility:[facility] HospitalStart: 10-05-2023 End: 27-35-1693Keusvzh encounter Gautam WOODS [phone]-UvbxgOhiohealth Grant Medical Center Start: 08-28-2023 End: 89-29-8633Ajfilrd encounter procedureSumeet De La Cruz MD Work Phone: spine InstituteComment on above:Fusion of spine of thoracolumbar region (Primary Dx)Start: 08-21-2023 End: 50-82-3533mlueidaivzXbplf M. LueFacility:LISA Gutierreztart: 08-21-2023 End: 50-32-8947Ztxuvsx encounter Margot Vazquez [facility] Start: 07-31-2023 End: 71-24-3324Mpsoias encounter procedureSumeet De La Cruz MD Work Phone: mqp InstituteComment on above:S/P spinal fusion (Primary Dx)Start: 07-31-2023 End: 17-12-9487Btenlbi encounter statusXr Dl6UdhqjanntParkview Health Montpelier Hospitaltart: 07-31-2023 End: 40-29-2785Nlcetrswhl hospital visit by physicianXr Main Kt0YeuthdpstTvhsqpa on above:Cervical spinal stenosis [M48.02]Start: 36-93-9207Ewytoprzc encounter Sumeet De La Cruz MD Work Phone: NeurologyComment on above:QuestionStart: 07-24-2023 ambulatoryLaura ButlerFacility:EU kStart: 07-20-2023 End: 12-94-1531vygabzpadpYftyj MRachelle LueFacility:EU [facility] HospitalkStart: 07-17-2023 End: 65-63-8367Xsyecdddg department patient visitdipika [facility] Start: 25-86-7769Blxubzswt encounterAshanti Marie [facility] Spine InstituteComment on above:CARE CONTINUUM ADVISOR ASSESSMENTStart: 22-96-5956Yovjywqeb encounterSumeet De La Cruz MD Work Phone: [facility] InstituteComment on above:Surgery deniedStart: 06-20-2023 End: 32-65-5915xltvvllixeHMC Bianka WOODSFacility:[facility] HospitalStart: 24-92-2351Dsftadgtflbbz examination Imelda Dash APRN.CNP Work Phone: [facility] Work Phone: Start: 29-10-5197Rbqyqydyt encounterSvalentina Dash APRN.CNP Work Phone: Pre Admission TestsComment on above:PreOp CallStart: 05-31-2023 End: 20-46-3258kvcclbsavyPuhv Jean Marie ADAMDOC Work Phone: Neurology PainComment on above:Spinal stenosis in cervical region (Primary Dx)Start: 05-31-2023 End: 25-12-9019Vmeooavowidm consultation with Edouard Aj PSYD Work Phone: [facility] MAINStart: 21-60-4991slmfhyysqt TIAGO Charlesnicolette Smith INAJOIWendycility:[facility] HospitalStart: 05-24-2023 End: 18-15-4644Lymzmwalam hospital visit by physicianCt [facility] Work Phone: RadiologyComment on above:Arthrodesis status [Z98.1] Spinal stenosis of lumbar region, unspecified whether neurogenic claudication present [M48.061]Start: 82-84-9687Vqwsbffdf encounterSumeet De La Cruz MD Work Phone: Spine InstituteComment on above:Appeal sentStart: 80-71-9577chxsbtsewoTkmxryh Pelle MD Work Phone: ccf [facility] MAINStart: 05-10-2023 Documentation procedureSumeet De La Cruz MD Work Phone: Spine InstituteComment on above:My old documentation Start: 35-90-6029Siznplnoq encounterSumeet De La Cruz MD Work Phone: Spzkg InstituteStart: 87-72-9014Ppxcjymcq to same day surgery centerSumeet De La Cruz MD Work Phone: Spine InstituteComment on above:My surgeryStart: 75-49-2815aoodzftbgsEnelsdp Pelle MD Work Phone: ccf [facility] MAINStart: 45-23-2441Dpsddtsfa encounterSumeet De La Cruz MD Work Phone: Spine InstituteComment on above:Patient UpdateStart: 73-65-3754Bbasulvgh to same day surgery Gisele Shah PA-C Work Phone: Spine InstituteComment on above:S/P spinal fusion (Primary Dx); Anemia following surgeryStart: 87-86-4650qgbgaehchiWydcwoe Pelle MD Work Phone: Spozt InstituteStart: 31-19-9562Eoshvaj encounter statusSumeet De La Cruz MD Work Phone: [facility] Work Phone: Start: 61-03-4502Rpmjjqqec encounterSumeet De La Cruz MD Work Phone: [facility] InstituteComment on above:Follow UpStart: 54-62-5023Nkdhfkhsh encounterSumeet De La Cruz MD Work Phone: [facility] InstituteComment on above:Follow UpStart: 04-24-2023 End: 28-04-7364Delicvseoj hospital visit by physicianXr Main Dm8DklgsmbleHkrqpzl on above:Juvenile idiopathic scoliosis, 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] Start: 04-11-2023 End: 65-66-9503bhcjgyjqgdMQE Bianka WOODSFacility:[facility] HospitalStart: 07-80-3196xwjzvhfhwzAmncvhg S FLORAFacility:[facility]Start: 18-47-7952Abfem abstractingNone (Historical)NeurologyStart: 02-10-2023 End: 24-51-8365Pdqylwh encounter Carmen HUTSON [phone]-CrhdmSumma Health [facility]ron Campus Start: 10-10-2022 End: 91-15-3445Wghhlmb encounter procedureGregory S FLORA [facility] Start: 10-06-2022 End: 58-94-3727Fchhkdl encounter procedureGregory S FLORA [phone]-XnxjeSumma Health Akron Campus Start: 07-06-2022 End: 57-47-0518Uuwvquj encounter procedureGregory S FLORA [phone]-EsyrhSumma Health Akron Campus start: 04-21-2022 End: 01-11-8853Qotykcm encounter procedureBritany Violeta FLORA [phone]-CjeecSumma Health Akron Campus Start: 03-03-2022 End: 23-07-4428Gbacqhf encounter procedureLoretta Morales [facility] Start: 03-02-2022 End: 41-15-1666Xluipoj encounter procedureLoretta Morales [phone]-VofiySumma Health Akron Campus Start: 01-25-2022 End: 21-65-3092wmcydyiecpKI STEVENSON FAZIOFacility:E1Hagjq: 58-51-6847qgmicehhooPM STEVENSON FAZIOFacility:Y4Iyizr: 04-14-2021 End: 15-75-0531Eimjufygdh and management of inpatientDR STEVENSON FAZIOFacility:H1 Start: 04-12-2021 End: 24-26-2197ytjtbhdljuFK STEVENSON FAZIOFacility:X3Dtmuw: 02-02-2021 End: 78-91-6633kbdedsnrglTN STEVENSON FAZIOFacility:T3Jrzfg: 02-01-2021 End: 19-63-4454tfwikfedrdXB STEVENSON FAZIOFacility:R2Fiotv: 09-14-2017 End: 15-33-4182RltatkwwxrVZSPOhio Valley Hospitaltart: 07-27-2017 AmbulatoryOhio Valley Hospitaltart: 07-25-2017 End: 74-07-5226OtgxwhwvpuNCLGUniversity Hospitals Health Systemtart: 07-11-2017 End: 46-91-3083WpzahkzbkbSEAPUniversity Hospitals Health Systemtart: 06-20-2017 End: 71-77-0984GbnrwvnrzwNVJJRZ B [facility] Systemtart: 04-06-2017 End: 86-89-3553SfqktdlkczVPXDUniversity Hospitals Health Systemtart: 03-28-2017 End: 84-30-7474Jwgilurpu department patient Meron GIPSONRiverview Health Institutetart: 03-17-2017 End: 95-08-8290Rwuxgaxzmi and management of inpatientMARK DANIELLERegency Hospital Companytart: 03-13-2017 End: 19-19-4081TtzbbvufzvHBUDK [facility] Procedures DateProcedureProcedure DetailPerforming ClinicianStart: 04-16-2025 End: 32-06-9435Xtosmlwawmuan w/patient 60 minutesPayton Villalobos PhD Work Phone: Start: 65-55-3606Hv lumbar spine w/o contrast material Tiny Benson MD Work Phone: start: 71-81-0045Feebh entir thrc lmbr crv sac spi w/skull 2/3 vwCarissa Bonus PA-C Work Phone: Start: 68-47-5073Jm lumbar spine w/o contrast material Kavya Singh FURNITURE REPAIR TECHNICIAN.PLASTIC PANEL INSTALLER Work Phone: Start: 53-39-5896Efs spinal canal lumbar w/o contrast materialSserge Singh FURNITURE REPAIR TECHNICIAN.PLASTIC PANEL INSTALLER Work Phone: start: 24-72-0689Rbirh entir thrc lmbr crv sac spi w/skull 2/3 vwCarissa Bonus PA-C Work Phone: Start: 72-75-4784Rdfsqznw of Products of Conception, External ApproachDR STEVENSON FACARLAOStart: 08-53-1558Zzxrgcau of Amniotic Fluid, Therapeutic from Products of Conception, Via Natural or Artificial OpeningDR STEVENSON TurpinnsillectomyLoretta Morales tubes in Anupam Morales Plan of Treatment DateCare ActivityDetailAuthorStart: 45-76-0865Kkgzy microalbumin profile DTaP,Tdap,Td Vaccine (8 - Td or Tdap)[facility] Hospitaltart: 07-07-2025 End: 57-03-7725Wdbihhg encounter onfuatcoq75/20/2025 11:20 AM EDT Procedure Visit [facility] [address] [place], [id number] Stevenson Kiser, DO [address] [place] [address] [facility] Don OBGYNStart: 06-16-2025 End: 98-44-1384Nntqylzzjtkk / ancillary services lwprobmwai18/29/2025 9:30 AM EDT Ancillary Procedure [facility] [address] [place] [address] [phone] Don OBGYNStart: 06-02-2025 End: 40-05-8760VHQTXHJH Lab Routine PCOS (polycystic ovarian syndrome) Expected: 06/02/2025 (Approximate), Expires: 06/02/2026NOMS HealthcareComment on above: Expected: 06/02/2025 (Approximate), Expires: 06/02/2026Start: 06-02-2025 End: 86-05-9918FK PelvisUS Pelvis w/ TV Imaging Routine PCOS (polycystic ovarian syndrome) Expected: 06/02/2025, Expires: 06/02/2026NOMS HealthcareComment on above:Expected: 06/02/2025, Expires: 06/02/2026Start: 06-02-2025 End: 23-48-3688Wscxrxi encounter mexobmszy11/15/2025 1:10 PM EDT Office Visit NOMVioleta VINCENT [address] [place] [address] Stevenson Kiser, DO [address] [place] [address] ArrivedNOMS Don OBGYNComment on above:ArrivedStart: 02-19-0665Qbgggsejh vaccinationCleveland ClinicStart: 04-21-2025 End: 46-08-6818Iacslpz encounter hkcwzevvz46/12/2024 2:30 PM EDT Office Visit [facility] [place] [facility] [address] [place] [address] Joshua Garcia, DUTCH [address] [place] [address] Darian VINCENT Comment on above:ArrivedStart: 04-21-2025 End: 76-37-5566AU Breast - bilateral DiagnosticBilateral diagnostic mammogram Imaging Routine Breast lump in female Expected: 04/21/2025 (Approximate), Expires: 06/21/2026[facility] Work Phone: comment on above:Expected: 04/21/2025 (Approximate), Expires: 06/21/2026Start: 04-21-2025 End: 06-76-3974QM PelvisUS Pelvis w/ TV Imaging Routine Dysmenorrhea Pelvic pain in female Menorrhagia with irregular cycleExpected: 04/21/2025, Expires: 10/22/2025NOS[facility] HealthcareComment on above:Expected: 04/21/2025, Expires: 10/22/2025Start: 56-37-8496Hbqrv microalbumin profileDTaP,Tdap,Td Vaccine (7 - Td or Tdap)[facility] Hospitaltart: 23-35-9487DihkNorthern Colorado Long Term Acute Hospital Work Phone: Start: 02-05-2025 End: 14-50-8961Lpkzdxu encounter procedureSpine InstituteComment on above: painful lump on backLinked RecordsStart: 75-83-7833Dxylk-19 Vaccine ( season)Covid-19 Vaccine ( season)[facility]Start: 05-19-2024 Covid-19 Vaccine ( season)Covid-19 Vaccine ( season) [facility] Hospitaltart: 05-59-0417Msejdlvmq vaccinationParkview Health Montpelier Hospitaltart: 01-22-2024 End: 89-45-8486Saxciey encounter wejixtfqw25/06/2024 4:00 PM EDT Appointment Radiology [address] [place] [address] MRI THORACIC SPINE WO IVCONRadiologyComment on above:MRI THORACIC SPINE WO IVCONStart: 01-16-2024 End: 05-61-6729Eztowws encounter procedureRadiologyComment on above:CT LUMBAR SPINE WO IVCONXR SCOLIOSIS PA STAND/LAT 2VStart: 01-12-2024 End: 59-22-8246Desqevq encounter pvvqoxyyc32/26/2024 7:40 PM EDT Appointment Radiology [address] [place], [place] [id number] MRI LUMBAR SPINE WO IVCONRadiologyComment on above:MRI LUMBAR SPINE WO IVCONStart: 10-29-2023 End: 95-75-8195DMI W Auto Differential panel - BloodCBC + DIFF Lab Routine S/P spinal fusion Anemia following surgery Expected: 10/29/2023, Expires: 12/29/2023 [facility] Work Phone: Comment on above:Expected: 10/29/2023, Expires: 12/29/2023Start: 10-29-2023 End: 87-40-1948Pixbhxsf [Mass/volume] in Serum or PlasmaFERRITIN BLD Lab Routine S/P spinal fusion Anemia following surgery Expected: 10/29/2023, Expires: [address] [place] [address] Work Phone: Comment on above:Expected: 10/29/2023, Expires: 12/29/2023Start: 10-29-2023 End: 29-14-2410Sxna and Iron binding capacity panel - Serum or PlasmaIRON + TIBC Lab Routine S/P spinal fusion Anemia following surgery Expected: 10/29/2023, Expires: 12/29/2023[facility] Work Phone: Comment on above:Expected: 10/29/2023, Expires: 12/29/2023Start: 10-29-2023 End: 96-66-2188HGUBMUNMVRWF, HEMOGLOBINRETICULOCYTE, HEMOGLOBIN Lab Routine S/P spinal fusion Anemia following surgery Expected: 10/29/2023, Expires: 12/29/2023 [facility] Work Phone: Comment on above:Expected: 10/29/2023, Expires: 12/29/2023Start: 10-26-2023 End: 89-90-4344pigxbzywdd73/08/2024 3:30 PM EST Treatment [facility] [address] [facility] [place] [address] Hernan Morales, PT [address] [place] [address] NOMS NM PTStart: 25-84-4192Etxgs abstractingNOMS [facility] PTStart: 10-24-2023 End: 85-87-7588baiecwobvz37/06/2024 3:30 PM EST Treatment [facility] PT [address] [facility] [place] [place] [address] Haylee Cox PTANOMS ND PTStart: 08-21-2023 End: 65-48-7568Xrxdi entir thrc lmbr crv sac spi w/skull 2/3 vwXR SCOLIOSIS PA STAND/LAT 2V Radiology Routine S/P spinal fusion Expected: 08/21/2023, Expires: 08/29/2024[facility] Work Phone: Comment on above:Expected: 08/21/2023, Expires: 08/29/2024Start: 06-19-2023 End: 21-27-9592Qjfutdcp identified in Urine by CultureURINE CULTURE Microbiology Routine Preop examination Expected: 06/19/2023, Expires: 08/19/2023[facility] Work Phone: Comment on above:Expected: 06/19/2023, Expires: 08/19/2023Start: 06-19-2023 End: 16-36-6430RCE W Auto Differential panel - BloodCBC + DIFF Lab Routine Preop examination Expected: 06/19/2023, Expires: 08/19/2023[facility] Work Phone: Comment on above:Expected: 06/19/2023, Expires: 08/19/2023Start: 06-19-2023 End: 40-55-8737Jpczgfvu [Mass/volume] in Serum or PlasmaFERRITIN BLD Lab Routine Preop examination Expected: 06/19/2023, Expires: 08/19/2023[facility] Work Phone: Comment on above:Expected: 06/19/2023, Expires: 08/19/2023Start: 06-19-2023 End: 17-64-7422Izbc and Iron binding capacity panel - Serum or PlasmaIRON + TIBC Lab Routine Preop examination Expected: 06/19/2023, Expires: 08/19/2023 [facility] Work Phone: Comment on above:Expected: 06/19/2023, Expires: 08/19/2023Start: 06-19-2023 End: 28-56-7979QLBUR COUNTRETIC COUNT Lab Routine Preop examination Expected: 06/19/2023, Expires: 08/19/2023[facility] Work Phone: Comment on above:Expected: 06/19/2023, Expires: 08/19/2023Start: 06-16-2023 End: 05-73-8625XGHBY AUREUS PCRSTAPH AUREUS PCR Lab Routine Cervical spinal stenosis S/P spinal fusion Spinal stenosis of lumbar region with neurogenic claudication Pre-op testing Expected: 06/16/2023, Expires: 4[facility]iley [facility] Work Phone: Comment on above:Expected: 06/16/2023, Expires: 10/24/2023Start: 62-65-6209Hesdp-19 Vaccine ()Covid-19 Vaccine ()[facility]tart: 18-13-5395Nbnpqxyvd vaccination [facility] Hospitaltart: 77-77-1918ULX TESTINGPAP TESTINGParkview Health Montpelier Hospitaltart: 73-08-0373Zjqqnwbok for malignant neoplasm of cervixParkview Health Montpelier Hospitaltart: 18-02-3944Rabze microalbumin profileParkview Health Montpelier Hospitaltart: 39-27-0524JMUEVKEOH SCREENING (18-24)CHLAMYDIA SCREENING (18-24)[facility] Hospitaltart: 58-42-4967OE (GONORRHEA) SCREENING (18-24)GC (GONORRHEA) SCREENING (18-24)[facility] Start: 57-77-6757XORDPXHOR C SCREENINGHEPATITIS C SCREENINGMercer County Community Hospital Start: 74-55-9368Psmazzueq C screeningHepatitis C ScreeningMercer County Community Hospital Start: 44-85-5276XOP SCREENINGHIV SCREENINGParkview Health Montpelier Hospitaltart: 61-77-4393XCL screeningHIV ScreeningParkview Health Montpelier Hospitaltart: 50-50-0285Cfzguoxzh for Chlamydia trachomatisChlamydia Screening (18-24)[facility] Hospitaltart: 2016 Meningococcal B Vaccine: Consider Based On Risk (1 of 2 - Patient Seeks Protection)Meningococcal B Vaccine: Consider Based On Risk (1 of 2 - Patient Seeks Protection)[facility]tart: 50-70-3356RUQCGUJBNWFJU B: Consider based on risk (1 of 2 - Patient Seeks Protection)MENINGOCOCCAL B: Consider based on risk (1 of 2 - Patient Seeks Protection)[facility]tart: 69-85-4213RSM Vaccine (1 - 3-dose series)HPV Vaccine (1 - 3-dose series)[facility] Start: 14-36-3107EVYQ TO ADULT TRANSITION ANNUAL ASSESSMENTPEDS TO ADULT TRANSITION ANNUAL ASSESSMENTPark[facility]: [phone] TO ADULT TRANSITION INITIAL DISCUSSIONPEDS TO ADULT TRANSITION INITIAL DISCUSSION [facility]: [phone] VACCINE (1 - 2-dose series)HPV VACCINE (1 - 2-dose series)[facility]: [id number] (1 - PCV) PNEUMOCOCCAL (1 - PCV)[facility]: [phone] vaccination Pneumococcal Vaccine (1 - PCV)[facility]: [phone] VACCINE (#1)COVID-19 VACCINE (#1)[facility]: [phone] B (1 of 3 - 3-dose series)HEPATITIS B (1 of 3 - 3-dose series)[facility]: [phone] B Vaccine (1 of 3 - 3-dose series)Hepatitis B Vaccine (1 of 3 - 3-dose series)[facility] Differential [facility] - BloodCBC and differential Lab Routine PCOS (polycystic ovarian syndrome) Ordered: 06/02/2025 [facility] HealthcareComment on above:Ordered: 06/02/2025 End: 06-71-2934DU Cervical spine WO contrastCT CERVICAL SPINE WO IVCON Radiology Routine Spinal stenosis of cervical region 1 Occurrences starting 02/05/2025 until 03/07/2026[facility] Work Phone: comment on above:1 Occurrences starting 02/05/2025 until 03/07/2026 End: 59-66-9847RD Lumbar spine WO contrastCT LUMBAR SPINE WO IVCON Radiology Routine Chronic bilateral low back pain without sciatica 1 Occurrences starting 01/02/2024 until 01/31/2025[facility] ClinicComment [facility] above:1 Occurrences starting 01/02/2024 until 01/31/2025 End: 30-13-0468XW Thoracic spine WO contrastCT THORACIC SPINE WO IVCON Radiology Routine Chronic bilateral low back pain without sciatica 1 Occurrences starting 01/02/2024 until 5[facility] ClinicComment on above:1 Occurrences starting 01/02/2024 until 01/31/20256960NDEY-fwbylrmTPNC-obytkwm Lab Routine PCOS (polycystic ovarian syndrome) Ordered: 06/02/2025[facility] HealthcareComment on above:Ordered: 06/02/2025Follicle stimulating hormoneFollicle stimulating hormone Lab Routine PCOS (polycystic ovarian syndrome) Ordered: 06/02/2025[facility] HealthcareComment on above:Ordered: 06/02/2025hCG, quantitative, pregnancyhCG, quantitative, Lab Routine PCOS (polycystic ovarian syndrome) Ordered: 06/02/2025[facility] Healthcare Work Phone: comment on above:Ordered: 06/02/2025[facility] Procedures Routine Cervical spinal stenosis S/P spinal fusion Spinal stenosis of lumbarregion with neurogenic claudication Pre-op testing Ordered: 04/28/2023[facility] Work Phone: Comment on above:Ordered: 04/28/2023Hemoglobin A1c/Hemoglobin.total in BloodHemoglobin A1c Lab Routine Follow-up exam PCOS (polycystic ovarian syndrome) Ordered: 06/02/2025[facility] HealthcareComment on above:Ordered: 06/02/2025Luteinizing hormoneLuteinizing hormone Lab Routine PCOS (polycystic ovarian syndrome) Ordered: 06/02/2025[facility] HealthcareComment on above:Ordered: 06/02/2025 End: 32-40-1348CL Lumbar spine WO contrastMRI LUMBAR SPINE WO IVCON Radiology Routine Adolescent idiopathic scoliosis of thoracolumbar region1 Occurrences starting 01/02/2024 until 01/31/2025[facility] ClinicComment on above:1 Occurrences starting 01/02/2024 until 01/31/2025 End: 22-25-4329KQ Thoracic spine WO contrastMRI THORACIC SPINE WO IVCON Radiology Routine Adolescent idiopathic scoliosis of thoracolumbar region 1 Occurrences starting 01/02/2024 until 01/31/2025[facility] ClinicComment on above:1 Occurrences starting 01/02/2024 until 01/31/2025 End: 75-91-0994Hacec entir thrc lmbr crv sac spi w/skull 2/3 vwXR SCOLIOSIS PA STAND/LAT 2V Radiology Routine Juvenile idiopathic scoliosis, unspecified spinal region 1 Occurrences starting 03/16/[address] [place] [address] Work Phone: Comment on above:1 Occurrences starting 03/16/2023 until 04/14/2024 End: 30-84-7977Vdnpr entir thrc lmbr crv sac spi w/skull 2/3 vwXR SCOLIOSIS PA STAND/LAT 2V Radiology Routine Cervical spinal stenosis S/P spinal fusion Spinal stenosis of lumbar region with neurogenic claudication Pre-op testing 1 [facility] 04/28[facility]2023 [facility] Work Phone: Comment on above:1 Occurrences starting 04/28/2023 until 05/26/2024 End: 73-58-6603Wuswf entir thrc lmbr crv sac spi w/skull 2/3 vwXR SCOLIOSIS PA STAND/LAT 2V Radiology Routine Fusion of spine of thoracolumbar region 1 Occurrences starting 08/28/2023 until [facility] Work Phone: Comment on above:1 Occurrences starting 08/28/2023 until 09/26/2024REFER FOR ADMIT INTERVIEWREFER FOR ADMIT INTERVIEW Procedures Routine Cervical spinal stenosis S/P spinal fusion Spinal stenosis of lumbar region with neurogenic claudication Pre-op testing [facility] Work Phone: Comment on above:Ordered: 04/28/2023Thyrotropin [Units/volume] in Serum or PlasmaTSH Lab Routine PCOS (polycystic ovarian syndrome) Ordered: 06/02/2025[facility] HealthcareComment on above:Ordered: 06/02/2025 Thyroxine (T4) free [Mass/volume] in Serum or PlasmaT4, free Lab Routine PCOS (polycystic ovarian syndrome) Ordered: 06/02/2025[facility] HealthcareComment on above:Ordered: 06/02/2025 End: 23-98-0520MV Thoracic and lumbar spine Views for scoliosis W standingXR SCOLIOSIS PA STAND/LAT 2V Radiology Routine Adolescent idiopathic scoliosis of thoracolumbar region 1 Occurrences starting 01/02/2024 until 01/31/2025[facility] Work Phone: Comment on above:1 Occurrences starting 01/02/2024 until 01/31/2025XR Thoracic and lumbar spine Views for scoliosis W standingXR SCOLIOSIS PA STAND/LAT 2V Radiology Routine Arthrodesis status 02/09/2025 9:18 AM [facility] Work Phone: [facility] Immunizations Immunization DateImmunizationNotesCare DeumjzjwVrbjjtca88-76-8181zmlbfwn toxoid, reduced diphtheria toxoid, and acellular pertussis vaccine, adsorbed; Translations:[Boostrix (Tdap)]Candelario Wilhelm [facility]08-03-2015tetanus toxoid, reduced diphtheria toxoid, and acellular pertussis vaccine, adsorbedCHRISTOPHER HUTSON 083-5777Xcgrjo-GnsrwDayton [facility] Tresckow 72-13-6150eohnshede virus vaccine, unspecified formulationXr Hosp Work Phone: [facility] HospitalCcnaph97-45-3994dfzpusprp virus vaccineDERIK SIDELL [phone]-MwujdSumma Health [facility] Campus 73-01-7619qbyvosjgs virus vaccine, whole virusSheri Chippewa FURNITURE REPAIR TECHNICIAN.PLASTIC PANEL INSTALLER Work Phone: [facility] HospitalYmalcd17-24-9100ifmeoifhx, wholeDERIK SIDELL [phone]-VfzenSumma Health [facility] 41-36-3193ubvnzrzkd virus vaccine, unspecified formulationSheri Hardy FURNITURE REPAIR TECHNICIAN.PLASTIC PANEL INSTALLER Work Phone: [facility] HospitalWppwrl63-12-1165lfnwarofui, tetanus toxoids and acellular pertussis vaccine, unspecified formulationSheri Hardy FURNITURE REPAIR TECHNICIAN.PLASTIC PANEL INSTALLER Work Phone: [facility] HospitalVxkgzi57-48-1114UJoZ, unspecified formulationDERIK SIDELL [phone]-EozngSumma Health [facility] 33-33-5256lbpaegh, mumps and rubella virus vaccineDERIK SIDELL 207-0937Jxhxud-DnxglSumma Health [facility] Campus 87-96-6444aorosryini vaccine, unspecified formulationDERIK SIDELL 420-3296Tryobh-OeiruSumma Health [facility] Campus 27-92-9586iqcdmgqwlu, tetanus toxoids and acellular pertussis vaccine, unspecified formulationSheri Chippewa FURNITURE REPAIR TECHNICIAN.PLASTIC PANEL INSTALLER Work Phone: [facility] HospitalRubviu36-97-1310RRwF, unspecified formulationDERIK SIDELL 187-7567Vytsgt-GxfieSumma Health [facility] Campus 45-71-3759iuprcevchq, tetanus toxoids and acellular pertussis vaccine, unspecified formulationSheri Hardy FURNITURE REPAIR TECHNICIAN.PLASTIC PANEL INSTALLER Work Phone: [facility] HospitalFyddjn21-35-8225LNjF, unspecified formulationDERIK SIDELL [phone]-UrxnhSumma Health [facility] 20-74-6271jqfbkkowh B vaccine, pediatric or pediatric/adolescent dosageDERIK SIDELL [phone]-UbvvbSumma Health [facility] 49-54-7038Mrr, unspecified formulationDERIK SIDELL [phone]-PrqzmSumma Health [facility] 80-11-8880auvvoeb, mumps and rubella virus vaccineDERIK SIDELL [phone]-TdufkSumma Health [facility] 97-90-9393rqkszktsgm vaccine, unspecified formulationDERIK SIDELL 302-9307Rwdttg-AyhnzSumma Health [facility] 77-70-6340bzfjdxlvb virus vaccineDERIK SIDELL [phone]-BswccSumma Health [facility] 02-12-2091ucjkhqzzka, tetanus toxoids and acellular pertussis vaccine, unspecified formulationSheri Hardy FURNITURE REPAIR TECHNICIAN.PLASTIC PANEL INSTALLER Work Phone: [facility] HospitalTuftwn18-79-4450JZrU, unspecified formulationDERIK SIDELL [phone]-IznpkSumma Health [facility] 66-58-4964Mbf, unspecified formulationDERIK SIDELL 466-2547Rsrjbv-XriwmSumma [facility] 96-82-6806rspfwztffq vaccine, unspecified formulationDERIK SIDELL [phone]-RyfntSumma Health [facility] Campus 22-71-0923xkcxgfungz, tetanus toxoids and acellular pertussis vaccine, unspecified formulationSheri Hardy FURNITURE REPAIR TECHNICIAN.PLASTIC PANEL INSTALLER Work Phone: [facility] HospitalSaigei15-98-6150IVrO, unspecified formulationDERIK SIDELL [phone]-OnyhxSumma Health [facility] 42-21-5939zrnlhukve B vaccine, pediatric or pediatric/adolescent dosageDERIK SIDELL 262-9651Oiklau-GkrlnSumma Health [facility] 55-75-3196Fiq, unspecified formulationDERIK SIDELL [phone]-JwrbfSumma Health [facility] 64-99-9723hhvgapseeb vaccine, unspecified formulationDERIK SIDELL [phone]-NxawoSumma Health [facility] Campus 93-55-1718qcbmgasdb B vaccine, pediatric or pediatric/adolescent dosageDERIK SIDELL [phone]-JbblnSumma Health [facility] NEGATED: Highlighted row has not occurred!36-89-1314hkbyjcrno virus vaccine, unspecified formulationYONNYNIKKI BECK 313-8526Likocz-YbuvpSumma Health [facility] Campus NEGATED: Highlighted row has not occurred!47-01-2880hijnlwohf virus vaccine, unspecified formulationEmeliadipika Ellingtone 740-2561Seorto-TwxxyOhiohealth [facility] NEGATED: Highlighted row has not occurred!07-48-5852bicwqcxli virus vaccine, unspecified formulationLandenchelle Morales [phone]-MvzbzSumma Health [facility] Campus Payers DatePayer CategoryPayerPolicy [id number] [id number] [id number] Health Insurance [facility] MEDICAID Member Subscriber Plan / Payer (Effective 2020- Present) Name: Yaneth Dennis Relation to Subscriber: Self Name: Yaneth Dennis Payer ID: Not on file Group ID: [id number] Type: Not on file Address: [address] [id number] [id number] 2.16.840.1.553287.3.579.2.86515-90-8850 [id number] 2.16840.1.751441.3.57[id number] 2.16840.1.468857.3.579.2.18694-08-7453Apihnmf5755815 2.16840.1.401987.3.579.2.66378-68-4405Lmxzbne8029756 2.16840.1.236268.3.579.2.07151-95-5424Dctubyo7068162 2.0.1.576077.3.579.2.[id number] 2.0.1.825762.3.579.2.07947-06-7241Cbvifzc84255808 2.0.1.598841.3.579.2.32676-06-1081Jwcqzpn93926615 2.840.1.064086.3.579.2.49672-21-1751Jopgrxs45194524 2.0.1.583572.3.579.2.03131-96-9556Fqtuelw22285382 2.0.1.092872.3.579.2.69349-33-9542Oylpigo73279670 2.840.1.044140.3.579.2.35341-78-9748Zyienzf60986319 2.840.1.758456.3.579.2.93699-26-5229Phhasps35884013 2.840.1.810894.3.579.2.10747-67-7336Qepvwcw19235910 2.840.1.289686.3.579.2.56568-02-2459Orawgjs66054532 2.16.840.1.402761.3.579.2.51443-94-1000Taecpic22153570 2.840.1.982546.3.579.2.02524-98-1928Bhpcajz88212227 2.840.1.248634.3.579.2.64178-58-5872Nsqgwan05997053 2.840.1.462009.3.579.2.02161-21-8957Ohphkdu74735349 2.840.1.135376.3.579.2.36088-98-3451Rqpkkws99886437 2.840.1.248461.3.579.2.43319-62-7700Edxkbzo43143673 2.840.1.131652.3.579.2.32855-65-7047Cmmblmz88672300 2.840.1.535485.3.579.2.39341-71-0738Zrordfx33378093 2.840.1.111955.3.579.2.61780-76-3531Kemhkto69266399 2.840.1.537940.3.579.2.35469-56-8143Wrkbico75128207 2.840.1.384372.3.579.2.76040-92-7096Quehzur61069421 2.840.1.932515.3.579.2.89401-31-1663Qbozbfo26582756 2.840.1.857719.3.579.2.77452-08-7886Jntcwgz70772794 2.840.1.290054.3.579.2.74979-84-9229Muknfaq08854156 2.840.1.467222.3.579.2.10754-60-7382Ckbgdbm42846986 2.840.1.664204.3.579.2.60325-49-7118Merihds70177207 2.840.1.954369.3.579.2.07406-34-2985Erpzlhl47991521 2.840.1.390376.3.579.2.45600-33-3251Cnqmgdc76707415 2.840.1.884629.3.579.2.72645-07-0647Ckqjdmu99282664 2..1.619175.3.579.2.49810-48-3873Crgiqbv59124161 2..1.938038.3.579.2.37771-16-3417Cmgyizp20342123 2.0.1.220983.3.579.2.00190-75-5362Lmgbhkc13624781 2.0.1.074281.3.579.2.86925-82-6554Xrcdmox62598526 2.0.1.044318.3.579.2.09071-14-6229Blybahu39842045 2..1.295171.3.579.2.66259-72-2808Aemwyxg94789794 2.840.1.505021.3.579.2.27445-36-3309Yioqhqz96797958 2.0.1.389335.3.579.2.77207-79-8103Iozxnwq02066697 2.840.1.077611.3.579.2.69622-09-5179Nstscfq06278691 2.840.1.076833.3.579.2.71925-20-3032Ueuhlxj87187074 2.16.840.1.878764.3.579.2.92684-89-6626Corkqvf14316551 2.16840.1.617156.3.579.2.88585-02-3360Cvwjebu0351188 2.16.840.1.710653.3.579.2.36371-47-1627Hjxyzdk58090127 2.840.1.125186.3.579.2.91750-35-4343Uvrwkbz58216498 2.840.1.480875.3.579.2.926358-61-5527Zvzszmb36880662 2.840.1.016306.3.579.2.931047-94-1669Mzjqacz00495737 2.840.1.406409.3.579.2.138197-95-7870Tofitut8536879 2.840.1.356507.3.579.2.704860-42-3374Jixevjj76272967 2.840.1.164809.3.579.2.26047-42-7312Njoksbo08632306 2.840.1.572817.3.579.2.29660-25-8711Mhzpust09158449 2.840.1.423452.3.579.2.60768-88-4470Petslwh90107967 2.840.1.825838.3.579.2.13767-70-5239Fiwjhxh28984939 2.840.1.021221.3.579.2.17392-05-9099Vwyzhje11197143 2.16840.1.687627.3.579.2.69477-62-9304Rvbmmjx62247348 2.840.1.476149.3.579.2.40969-22-9364Leibkbu58713257 2.16.840.1.770189.3.579.2.69489-34-1861Smtljxp90783612 2.16.840.1.370698.3.579.2.23100-63-2713Fujwuih84005384 2.16.840.1.399937.3.579.2.39197-59-3500Ydwholv88075166 2.16.840.1.781301.3.579.2.25699-58-3661Swyzjxr02804857 2.16.840.1.402179.3.579.2.22495-03-1146Wzqnikm87049648 2.16.840.1.140503.3.579.2.45025-88-0447Bmdbzqe49670599907EyumnxlQJRFW8772583 Social History DateTypeDetailFacilityStart: 03-02-2022 End: 51-21-5367Ioqmxdg smoking statusNever smoked tobacco (finding)[facility] Comment on above:occasionalTobacco smoking statusNever [facility] Comment on above:occasionalStart: 04-24-2023 End: 95-38-2947Qsw Assigned At BirthFemalOhioHealth Hardin Memorial Hospital Start: 86-75-3389Ivdqoly smoking status NHISTobacco smoking consumption unknownParkview Health Montpelier Hospitaltart: 06-73-6783Zth Assigned At BirthNot on fileParkview Health Montpelier Hospitaltart: 99-05-3392Poqzqar smoking status NHIS Occasional tobacco smokerMercer County Community Hospital Work Phone: End: 33-54-0865Etvkqgj of tobacco useCigarette SmokerMercer County Community Hospital Work Phone: History of tobacco usePassive smokerMercer County Community Hospital Work Phone: Start: 04-24-2023 End: 93-97-4755Mpuddag intakeEx-drinker (finding)[facility] Hospitaltart: 04-24-2023 End: 15-75-7510Ywordov of Social functionParkview Health Montpelier Hospitaltart: 04-24-2023 Tobacco CommentUses medical marijuana prn painParkview Health Montpelier Hospitaltart: 06-16-2023 End: 01-09-2711Brcpiwp smoking status NHISEx-smokerMercer County Community Hospital End: 66-80-7261Wsoubtl of tobacco useCurrent smokerParkview Health Montpelier Hospitaltart: 06-16-2023 End: 42-63-2809Dzfywaj use and exposureSmokeless tobacco non-userMercer County Community Hospital(I/We) worried whether (my/our) food would run out before (I/we) got money to buy more.Never trueMercer County Community Hospital Work Phone: In the past 12 months, was there a time when you were not able to pay the mortgage or rent on time?NoCBucyrus Community Hospital Work Phone: Sexual OrientationSouthview Medical Center Start: 66-97-7539ZfaVarrxv (finding)[facility] Centertart: 02-12-2025 End: 96-27-4043Hnogysvck beverage intakeLifetime non-drinker (finding)[facility]Start: 32-33-3813Luxdgcz intakeAlcohol Use [facility] Hospitalex Assigned At BirthFeBay[facility] Sexual OrientationStraight or heterosexualNorthern Colorado Long Term Acute [facility] Work Phone: Medical Equipment Procedure CodeEquipment CodeEquipment Original TextEquipment IdentifierDates Graft Bone 30cc 1mm-4mm Range Granules Cancellous Crushed - [id number]: 82-41-9109Idxlw Liz 3 Titanium Set Scooby Spine - [id number]: 47-80-8973Xon Liz 3 6mm 480mm Spinal - [id number]_hsr Start: 29-23-6996Etxlp Liz 3 Walden 6.5mm 55mm Bone Polyaxial Nonsterile Spine - [id number]: 50-96-7334Sdqth Infuse 18mm Large Ii Bovine Collagen Rhbmp-2 26mm Bone Absorbable - [id number]_xxvYqkyx: 07-11-2023 Screw Liz 3 Walden 6.5mm 50mm Bone Polyaxial Nonsterile Spine - [id number]: 87-81-8017Vniws Liz 3 Walden 4.5mm 40mm Bone Polyaxial Nonsterile Spine - [id number]: 49-76-2498Qoidn Liz 3 5mm Titanium 35mm Bone Polyaxial Spine Thoracolumbar - [id number]_vtaJrkgg: 33-42-8464Lyahd Liz 3 5mm Titanium 40mm Bone Polyaxial Spine Thoracolumbar - [id number]_tvfAqgfz: 90-34-9576Gjvvq Liz 3 6mm Titanium 45mm Bone Polyaxial Spine Thoracolumbar - [id number]_ogwNtqvy: 89-85-2997Robiv Liz 3 Walden 6mm 40mm Bone Polyaxial Nonsterile Spine - [id number]_bjwOwluw: 11-40-2740Gkqkc Liz 3 Walden 6mm 45mm Bone Polyaxial Nonsterile Spine - [id number]: 38-35-2368Scniq Liz 3 Walden 6.5mm 45mm Bone Polyaxial Nonsterile Spine - [id number]_uqaUlwlx: 07-11-2023 Functional Status GmqoIeshyrvemgBjcavuNdwodmbc67-02-5810Fwlyhjatax StatusN/AFisher-[facility]01-07-2025Functional StatusN/AFisher-[facility]12-12-2024Functional StatusSymptomatic After Exposure to Contagion NoFisher-[facility] 00-58-0111Iwaqxufqnn StatusN/AFisher - [facility]Sugxzu10-99-5724Mwbqhxydif StatusN/TINYgranville medical center - [facility]Prybor31-40-8253Oefhwcfwla StatusN/AFisher - [facility]2023Are you deaf, or do you have serious difficulty hearingNo 07/15/2023 11:11 AM EDSamara Jones RN [facility] 05-38-0600Ucj you blind, or do you have serious difficulty seeing, even when wearing glassesNo 07/15/2023 11:11 AM Samara Alvarez RN [facility]2023Do you have serious difficulty walking or climbing stairsNo 07/15/2023 11:11 AM EDT Samara Munoz RN [facility]2023Do you have difficulty dressing or bathingNo 07/15/2023 11:11 AM Samara Alvarez RN [facility] HospitalFucyvd07-07-9366Natwbva of a physical, mental, or emotional condition, do you have difficulty doing errands alone such as visiting a physician's office or shoppingNo 07/15/2023 11:11 AM Samara Alvarez RN [facility] HospitalCvzjnl93-39-3625Bwrkwvqqng StatusN/[facility]01-19-2023Functional StatusN/[facility]10-19-2022Functional StatusN/[facility]08-04-2022Functional StatusN/[facility] 06079669-75-7081Cowdfplqxr StatusN/[facility] Mental Status CdpcPrqesbatbmLqdnpxSmpszplb57-99-3184Lxosmax of a physical, mental, or emotional condition, do you have serious difficulty concentrating, remembering, or making decisionsNo 07/15/2023 11:11 AM Samara Alvarez RN [facility] Clinical Notes 03-02-2022 to 07-06-2025 Note Date & EsogXtgsWuxvyooz25-83-0737 NoteED Patient Education Note Dermatology Sutures, Leora, or Adhesive Wound Closure Wound closure refers to holding skin and underlying tissue together while it heals, such as after surgery or after an injury. Health care providers use stitches (sutures), leora, skin glue (tissue adhesive), and adhesive strips to close wounds. Your health care provider will use a wound closure method that helps you heal quickly and reduces the chances of infection or scarring. The type of wound closure depends on the location, size, and depth of your wound. More than one type of wound closure may be used on the same wound. In most cases, wounds are closed as soon as possible (primary skin closure). Sometimes, closure is delayed so the wound can be cleaned and then can heal naturally over weeks or months (delayed wound closure). This reduces the chance of infection. What are the different types of wound closure? Skin glue To use skin glue, your health care provider will hold the edges of the wound together and will paint the glue on the surface of your skin. You may need more than one layer of glue. Once the glue is dry, the wound may be covered with a bandage (dressing). This type of skin closure may be used for small wounds that are not deep (superficial wounds). It is often used for children and on facial wounds. Skin glue is less painful than other methods of wound closure, and it does not require medicine to numb the area (local anesthetic). This method also leaves nothing to be removed. Skin glue cannot be used for wounds that are deep, uneven, or bleeding. It is not used inside of a wound. Adhesive strips These strips are made of paper that is sticky (adhesive) and has many small holes in it. The stripsare applied across your wound edges like a regular bandage. Adhesive strips may be used to close very shallow wounds or surgical wounds. They may be used alongwith sutures to improve skin closure. Sutures Sutures come in many different materials, strengths, and sizes. They may break down as your wound heals (absorbable), or they may need to be removed (nonabsorbable). Your health care provider will sew your skin or the tissues under your skin together with sutures and a steel needle. Your skin edges may be closed in one long stitch or in separate stitches. Then the sutures will be tied and cut. Sutures can be used for all kinds of wounds. Absorbable sutures may be used to close tissues under the skin. Sutures can cause a skin reaction that can lead to infection. [place] To close a wound with leora, the edges of your skin on both sides of the wound will be brought close together. A staple will then be placed across the wound, and an instrument will secure the staple edges together. Leora are often used to close surgical incisions. They are faster to use than sutures, and they cause less skin reaction. [place] need to be removed using a tool that bends the leora away from your skin. Follow these instructions at home: Medicines ??? Take agfn-vmm-xihjrgw and prescription medicines only as told by your health care provider. ??? If you were prescribed an antibiotic medicine, take it as told by your health care provider. Donot stop taking the antibiotic even if you start to feel better. Wound care ??? Follow instructions from your health care provider about how to take care of your wound and dressing. ??? Wash your hands with soap and water for at least 20 seconds before and after you change your dressing. If soap and water are not available, use hand sales representative printing. ??? Do not try to remove your wound closures unless your health care provider tells you to do that.You may need a follow-up visit with your health care provider to remove your closures. ? Wound closures may stay in place for 2 weeks or longer. ? Absorbable sutures may dissolve after a few days or weeks. ? If adhesive strip edges start to loosen and curl up, you may trim the loose edges. ??? Do not pick at your wound. Picking can cause an infection or cause your wound to reopen. ??? Apply ointments or creams only as told by your health care provider. ??? Check your wound every day for signs of infection. Check for: ? Redness, swelling, or pain. ? Fluid or blood. ? New warmth, a rash, or hardness at the wound site. ? Pus or a bad smell. General instructions ??? Do not take baths, swim, or use a hot tub until your health care provider approves. Ask your health care provider if you may take showers. You may only be allowed to take sponge baths. ??? Do not soak your wound in water. ??? Eat a diet that includes protein, vitamin A, and vitamin C to help the wound heal. ??? Drink enough fluid to keep your urine pale yellow. ??? Keep all follow-up visits. This is important. Contact a health care provider if: ??? You have a fever or chills. ??? You have redness, swelling, or pain around your wound. ??? You have fluid or blood coming from y (more content not included)...[facility]10-09-2025 Evaluation + Plan note Future Scheduled Tests Radiology* CT Spine Cervical w/o Contrast 06/26/25 * CT Spine Thoracic w/o Contrast 06/26/25 * MRI Spine Cervical w/o Contrast 11/27/24 * MRI Spine Lumbar w/o Contrast 11/27/24 * MRI Spine Thoracic w/o Contrast 11/27/24 [facility] [place] 09-15-2025 History of Present illness Narrative* Joshua Garcia, DUTCH - 06/02/2025 1:10 PM EDT Reason for Appointment: Patient ID: Yaneth Dennis is a 24 y.o. female who presents for ER Follow-up Patient presents today for Acute Visit. MEDICATIONS Current Outpatient Medications Medication Instructions amphetamine-dextroamphetamine XR (Adderall XR) 10 MG 24 hr capsule 10 mg, Daily RT escitalopram (LEXAPRO) 10 mg, Daily escitalopram (LEXAPRO) 20 mg, Daily gabapentin (NEURONTIN) 300 mg, 3 times daily hydrOXYzine HCl (ATARAX) 25 mg, Every 6 hours PRN levonorgestrel-ethinyl estradiol (Jolessa) 0.15-0.03 MG tablet 1 tablet, Oral, Daily, Take 1 tabletby mouth daily norethindrone-ethinyl estradiol (Aurovela FE 10/07) 1-20 MG-MCG tablet 1 tablet, Oral, Every morning oxyCODONE-acetaminophen (Percocet) 7.5-325 MG tablet 1 tablet, 3 times daily tiZANidine (ZANAFLEX) 4 mg, Every 4 hours [...] Respiratory: Negative. Cardiovascular: Negative. Gastrointestinal: Negative. Genitourinary: Positive for pelvic pain. Musculoskeletal: Negative. Skin: Negative. Neurological: Negative. All [...] nursing note reviewed. Exam conducted with a venetian blind installer present. Vitals: Estimated body mass index is 27.52 kg/m as calculated from the following: Height as of 02/12/25: 5' 8 . Weight as of this encounter: 181 lb. BP: 110/68 No LMP recorded. ASSESSMENT & PLAN ICD-10-CM 1. Pelvic congestion syndrome N94.89 2. Follow-up exam Z09 Patient was seen at [facility] and diagnosed pelvic congestion syndrome. She continues with pelvic pain. Plan is to continue control. Plan will be to obtain ultrasound of the pelvis. Will move forward with diagnostic lap and salpingectomy. Documented by Joshua Garcia NP on behalf of: Stevenson Kiser DO documented in this encounterSt. Luke's [id number] NoteED Patient Education Note Dermatology Wound Care, Adult Taking care of your wound properly can help to prevent pain, infection, and scarring. It can also help your wound heal more quickly. Follow instructions from your health care provider about how to care for your wound. Supplies needed: ??? Soap and water. ??? Wound cleanser, saline, or germ-free (sterile) water. ??? Gauze. ??? If needed, a clean bandage (dressing) or other type of wound dressing material to cover or place in the wound. Follow your health care provider's instructions about what dressing supplies to use. ??? Cream or topical ointment to apply to the wound, if told by your health care provider. How to care for your wound Cleaning the wound Ask your health care provider how to clean the wound. This may include: ??? Using mild soap and water, a wound cleanser, saline, or sterile water. ??? Using a clean gauze to pat the wound dry after cleaning it. Do not rub or scrub the wound. Dressing care ??? Wash your hands with soap and water for at least 20 seconds before and after you change the dressing. If soap and water are not available, use hand sales representative printing. ??? Change your dressing as told by your health care provider. This may include: ? Cleaning or rinsing out (irrigating) the wound. ? Application of cream or topical ointment, if told by your health care provider. ? Placing a dressing over the wound or in the wound (packing). ? Covering the wound with an outer dressing. ??? Leave stitches (sutures), leora, skin glue, or adhesive strips in place. These skin closures may need to stay in place for 2 weeks or longer. If adhesive strip edges start to loosen and curl up, you may trim the loose edges. Do not remove adhesive strips completely unless your health care provider tells you to do that. ??? Ask your health care provider when you can leave the wound uncovered. Checking for infection Check your wound area every day for signs of infection. Check for: ??? More redness, swelling, or pain. ??? Fluid or blood. ??? Warmth. ??? Pus or a bad smell. Follow these instructions at home Medicines ??? If you were prescribed an antibiotic medicine, cream, or ointment, take or apply it as told by your health care provider. Do not stop using the antibiotic even if your condition improves. ??? If you were prescribed pain medicine, take it 30 minutes before you do any wound care or as told by your health care provider. ??? Take nrux-sqv-ucrutgz and prescription medicines only as told by your health care provider. Eating and drinking ??? Eat a diet that includes protein, vitamin A, vitamin C, and other nutrient- rich foods to help the wound heal. ? Foods rich in protein include meat, fish, eggs, dairy, beans, and nuts. ? Foods rich in vitamin A include carrots and dark green, leafy vegetables. ? Foods rich in vitamin C include citrus fruits, tomatoes, broccoli, and peppers. ??? Drink enough fluid to keep your urine pale yellow. General instructions ??? Do not take baths, swim, or use a hot tub until your health care provider approves. Ask your health care provider if you may take showers. You may only be allowed to take sponge baths. ??? Do not scratch or pick at the wound. Keep it covered as told by your health care provider. ??? Return to your normal activities as told by your health care provider. Ask your health care provider what activities are safe for you. ??? Protect your wound from the sun when you are outside for the first 6 months, or for as long as told by your health care provider. Cover up the scar area or apply sunscreen that has an SPF of at least 30. ??? Do not use any products that contain nicotine or tobacco. These products include cigarettes, chewing tobacco, and vaping devices, such as e-cigarettes. If you need help quitting, ask your health care provider. ??? Keep all follow-up visits. This is important. Contact a health care provider if: ??? You received a tetanus shot and you have swelling, severe pain, redness, or bleeding at the injection site. ??? Your pain is not controlled with medicine. ??? You have any of these signs of infection: ? More redness, swelling, or pain around the wound. ? Fluid or blood coming from the wound. ? Warmth coming from the wound. ? A fever or chills. ??? You are nauseous or you vomit. ??? You are dizzy. ??? You have a new rash or hardness around the wound. Get help right away if: ??? You have a red streak of skin near the area around your wound. ??? Pus or a bad smell coming from the wound. ??? Your wound has been closed with leora, sutures, skin glue, or adhesive strips and it begins to open up and separate. ??? Your wound is bleeding, and the bleeding does not stop with gentle pressure. These symptoms may represent a serious problem that is an emergency. Do not wait to see if the symptoms will go away. Get medical help right away. Call your lo (more content not included)...[facility]08-12-2025 NoteED Patient Education Note Obstetrics and Gynecology Pelvic Pain, Female Pelvic pain is pain in your lower abdomen, below your belly button and between your hips. The pain may start suddenly (be acute), keep coming back (be recurring), or last a long time (become chronic). Pelvic pain that lasts longer than 6 months is considered chronic. Pelvic pain may affect your: ??? Reproductive organs. ??? Urinary system. ??? Digestive tract. ??? Musculoskeletal system. There are many potential causes of pelvic pain. Sometimes, the pain can be a result of digestive orurinary conditions, strained muscles or ligaments, or reproductive conditions. Sometimes the cause of pelvic pain is not known. Follow these instructions at home: ??? Take zxmn-hak-hqnfnnf and prescription medicines only as told by your health care provider. ??? Rest as told by your health care provider. ??? Do not have sex if it hurts. ??? Keep a journal of your pelvic pain. Write down: ? When the pain started. ? Where the pain is located. ? What seems to make the pain better or worse, such as food or your monthly period (menstrual cycle). ? Any symptoms you have along with the pain. ??? Keep all follow-up visits. This is important. Contact a health care provider if: ??? Medicine does not help your pain, or your pain comes back. ??? You have new symptoms. ??? You have abnormal vaginal discharge or bleeding, including bleeding after menopause. ??? You have a fever or chills. ??? You are constipated. ??? You have blood in your urine or stool (feces). ??? You have foul-smelling urine. ??? You feel weak or light-headed. Get help right away if: ??? You have sudden severe pain. ??? Your pain gets steadily worse. ??? You have severe pain along with fever, nausea, vomiting, or excessive sweating. ??? You lose consciousness. These symptoms may represent a serious problem that is an emergency. Do not wait to see if the symptoms will go away. Get medical help right away. Call your local emergency services (911 in the [place] Do not drive yourself to the hospital. Summary ??? Pelvic pain is pain in your lower abdomen, below your belly button and between your hips. ??? There are many potential causes of pelvic pain. ??? Keep a journal of your pelvic pain. This information is not intended to replace advice given to you by your health care provider. Make sure you discuss any questions you have with your health care provider. Document Revised: 01/11/2022 Document Reviewed: 01/11/2022 [employer] Patient Education ? 2023 [employer]. Preventive Health How to Use Compression Stockings Compression stockings are elastic socks that help increase blood flow (circulation) to the legs, decrease swelling in the legs, and reduce the chance of developing blood clots in the lower legs. Compression stockings squeeze or apply pressure to the legs. The stockings are graduated, meaning the highest amount of pressure occurs at the toes and it decreases going toward the upper part of the leg.This helps ensure proper circulation through the veins. Compression stockings are often used by people who: ??? Are recovering from surgery. The stockings help prevent blood clots after surgery. ??? Have poor circulation or swelling in their legs because of a medical condition, such as chronicvenous insufficiency, venous stasis, or lymphedema. ??? Have a history of getting blood clots in their legs. ??? Have bulging (varicose) veins. ??? Sit or stay in bed for long periods of time (immobilization). ??? Stand for long periods of time and experience leg pain or fatigue. Follow instructions from your health care provider about how and when to wear your compression stockings. What are the risks? Generally, compression stockings are safe to wear. However, problems may occur for some people, such as: ??? The stockings being ineffective at increasing the circulation to the legs, decreasing swelling in the legs, or reducing the chance of developing blood clots in the lower legs. ??? Skin complications, including breaks in the skin, open wounds, blisters, or dermatitis. How to wear compression stockings Before you put on your compression stockings: ??? Make sure that they are the correct size and degree of compression. If you do not know your size or required grade of compression, ask your health care provider and follow the strategic accounts manager's instructions that come with the stockings. ??? Be sure they are the appropriate length for your medical needs. Compression stockings come in different lengths, including knee high, thigh high, and even up to the waist. ??? Make sure that the stockings are clean, dry, and in good condition. ??? Check the stockings for rips and tears. Do not put them on if they are ripped or torn. Put your stockings on first thing in the morning, before you get out of bed. Keep them on for as long (more content not included)...[facility]08-04-2025 History of Present illness Narrative* Joshua Garcia NP - 04/21/2025 2:30 PM EDT Images from the original note were not included. Reason for Appointment: Patient ID: Yaneth Dennis is a 24 y.o. female who presents for Discuss cycles and lump on breast Patient presents today for Acute Visit. MEDICATIONS Current Outpatient Medications Medication Instructions amphetamine-dextroamphetamine XR (Adderall XR) 10 MG 24 hr capsule 10 mg, Daily RT escitalopram (LEXAPRO) 10 mg, Daily escitalopram (LEXAPRO) 20 mg, Daily gabapentin (NEURONTIN) 300 mg, 3 times daily hydrOXYzine HCl (ATARAX) 25 mg, Every 6 hours PRN norethindrone-ethinyl estradiol (Aurovela FE 10/07) 1-20 MG-MCG tablet 1 tablet, Oral, Every morning oxyCODONE-acetaminophen (Percocet) 7.5-325 MG tablet 1 tablet, 3 times daily tiZANidine (ZANAFLEX) 4 mg, Every 4 hours [...] Respiratory: Negative. Cardiovascular: Negative. Gastrointestinal: Negative. Genitourinary: Positive for menstrual problem, pelvic pain and vaginal bleeding. Musculoskeletal: Negative. Skin: Negative. Neurological: Negative. All other systems reviewed and are negative. Hematological: Negative. Endocrine: Negative. Allergic/Immunologic: Negative. OBJECTIVE Objective: Physical Exam Constitutional: Appearance: Normal appearance. She is well-developed. Genitourinary: Vulva normal. Genitourinary Comments: Palpable mass left breast 3 o'clock tender 2cm X 4cm; no warmth or erythema Breasts: Breasts are soft. Right: Normal. Left: Mass present. Cardiovascular: Rate and Rhythm: Normal rate and regular rhythm. Pulmonary: Effort: Pulmonary effort is normal. Breath sounds: Normal breath sounds. Chest: Abdominal: General: Bowel sounds are normal. There [...] nursing note reviewed. Exam conducted with a venetian blind installer present. Vitals: Estimated body mass index is 28.95 kg/m as calculated from the following: Height as of 02/12/25: 5' 8 . Weight as of 02/12/25: 190 lb 6.4 oz. BP: No LMP recorded. ASSESSMENT & PLAN ICD-10-CM 1. Breast lump in female N63.0 Patient with complaints of heavy irregular menstrual cycles with pelvic pain. She has trialed [place] this does not regulate her menstrual cycle. She is interested in discussing endometrial ablation/hysterectomy. She reports a history of endometriosis and ovarian cysts. We will obtain a diagnostic mammogram, pelvic ultrasound and trial Jolessa OCP. She will schedule follow up for her PAP and obtain mammogram and pelvic ultrasound. Documented by Joshua Garcia NP on behalf of: Joshua Garcia NP documented in this encounterSt. Luke's [id number] Evaluation note* Type Assessment Date assessment Post-traumatic stress disorder impression feeling frequent ner vousness, experiencing flashbacks, uncontrollable rumination, dread, difficulty relaxing, restlessness, irritability, poor sleep onset, low sleep maintenance, avoidance of activators (i.e. driving, people, and public places) assessment Persistent Depressive Disorder J impression low mood, tearfulnes s, sleep difficulties, low motivation/energy, guild, low appetite, low self-efficacy, and low attention maintenance assessment Attention-deficit hyperactivity disorder, combined type impression low attention mainte nance, impulsivity, hyperactivity, difficulty with emotion regulation assessment Body mass index [BMI] 29.0-29.9, adult [facility] Work Phone: [phone] Telephone encounter Note* Telephone Encounter - Rashad Reyes RN - 02/13/2025 10:59 AM EDT Attempted to return call to patient. Reviewed paperwork that was previously sent over. Dr De La Cruz does not have any restrictions. Obtaining new imaging, but no current surgical plan. To best help the patient with her disability claim we can send along office notes but recommend herPCP complete the medical questionnaire. [facility]05-29-2025 Miscellaneous Notes* Telephone Encounter - Rashad Reyes RN - 02/13/2025 10:59 AM EDT Attempted to return call to patient. Reviewed paperwork that was previously sent over. Dr De La Cruz does not have any restrictions. Obtaining new imaging, but no current surgical plan. To best help the patient with her disability claim we can send along office notes but recommend herPCP complete the medical questionnaire. * Telephone Encounter - Drea Copeland - 02/12/2025 2:58 PM EDT Patient calling for 02/09/25 results. Patient informed that it can take 7 business days to review and that someone from the clinical teamwill call with results once reviewed. Verified imaging and reports were received. Forwarded to team for review. Drea Copeland Call received for Sumeet De La Cruz MD regarding Chavezstivenpreet Leatha Dennis. Caller: self Patient Identified by Name and : Yaneth Leatha Dennis 2000 Reason for Call: General - Pt wanted to see if we received the paperwork from her Nurseryman Assistant. Pt stated it has been sent twice. I do see some from December, not sure if it what needs to be filled out. Pt would like a call back Is there any additional information the provider should know? No Last Office Visit: 02/05/2025 Next scheduled appointment: Visit date not found Best number to reach caller: [phone] Best time to reach caller: any Is it OK to leave a detailed voice message? Yes Drea Copeland documented in this encounterMercer County [facility]05-[facility]-2025 Telephone encounter Note * Telephone Encounter - Drea Copeland - 02/12/2025 2:58 PM EDT Patient calling for 02/09/25 results. Patient informed that it can take 7 business days to review and that someone from the clinical teamwill call with results once reviewed. Verified imaging and reports were received. Forwarded to team for review. Drea Copeland Call received for Sumeet De La Cruz MD regarding Yaneth Dennis. Caller: self Patient Identified by Name and : Yaneth Dennis 2000 Reason for Call: General - Pt wanted to see if we received the paperwork from her Nurseryman Assistant. Pt stated it has been sent twice. I do see some from December, not sure if it what needs to be filled out. Pt would like a call back Is there any additional information the provider should know? No Last Office Visit: 02/05/2025 Next scheduled appointment: Visit date not found Best number to reach caller: [phone] Best time to reach caller: any Is it OK to leave a detailed voice message? Yes Drea Copeland [facility]05-25-2025 History of Present illness Narrative* Lalitha Arteaga, RT(R) - 02/09/2025 9:30 AM EDT Radiology Service Progress Note PATIENT NAME: Yaneth Dennis DATE OF SERVICE: February 09, 2025 TIME: 9:13 AM PATIENT IDENTITY VERIFICATION COMPLETED USING TWO (2) IDENTIFIERS: Name and Date of confirmedby patient verbally and Name and Date of confirmed by identification band. FALL SCREENING: Has the patient had 2 falls in the last year or 1 fall with injury or currently using an Ambulatory Assistive Device (Walker, Cane, Wheelchair, Crutches, etc.)? No PATIENT GENDER DATA: Assigned female at . status: : No status:NO. PATIENT RELEVANT IMPLANT DATA REVIEWED: Not Applicable PATIENT PRESENTS WITH AN IMPLANTABLE OR ATTACHED NUCLEAR PHARMACIST: No RADIOLOGY DEPARTMENT: General X-ray: Exam(s) Completed: Spine X-Ray(s): Scoliosis Series PERIPHERAL IV DATA: Not applicable SIGNED BY: ANMOL Grier) February 09, 2025 9:13 AM documented in this encounterMercer County Community Hospital05-25-2025 NoteHNO ID: [id number] Author: LALITHA ARTEAGA RT(R) Service: Radiology Author Type: Technologist Type: Progress Notes Filed: 02/09/2025 09:14 Note Text: Radiology Service Progress Note PATIENT NAME: Yaneth Dennis DATE OF SERVICE: February 09, 2025 TIME: 9:13 AM PATIENT IDENTITY VERIFICATION COMPLETED USING TWO (2) IDENTIFIERS: Name and Date of confirmed by patient verbally and Name and Date of confirmed by identification band. FALL SCREENING: Has the patient had 2 falls in the last year or 1 fall with injury or currently using an Ambulatory Assistive Device (Walker, Cane, Wheelchair, Crutches, etc.)? No PATIENT GENDER DATA: Assigned female at . status: : No status: NO. PATIENT RELEVANT IMPLANT DATA REVIEWED: Not Applicable PATIENT PRESENTS WITH AN IMPLANTABLE OR ATTACHED NUCLEAR PHARMACIST: No RADIOLOGY DEPARTMENT: General X-ray: Exam(s) Completed: Spine X-Ray(s): Scoliosis Series PERIPHERAL IV DATA: Not applicable SIGNED BY: RT Cherrie(Dom) February 09, 2025 9:13 AMCache Valley [id number] History of Present illness Narrative * Shalom Murphy RT(R) - 02/09/2025 9:00 AM EDT Radiology Service Progress Note PATIENT NAME: Yaneth Dennis DATE OF SERVICE: February 09, 2025 TIME: 8:53 AM PATIENT IDENTITY VERIFICATION COMPLETED USING TWO (2) IDENTIFIERS: Name and Date of confirmedby patient verbally. FALL SCREENING: Has the patient had 2 falls in the last year or 1 fall with injury or currently using an Ambulatory Assistive Device (Walker, Cane, Wheelchair, Crutches, etc.)? No PATIENT GENDER DATA: Assigned female at . status: : No status:NO. PATIENT RELEVANT IMPLANT DATA REVIEWED: Not Applicable PATIENT PRESENTS WITH AN IMPLANTABLE OR ATTACHED NUCLEAR PHARMACIST: No RADIOLOGY DEPARTMENT: CT; Exam(s) Completed: Spine PERIPHERAL IV DATA: Not applicable SIGNED BY: ANMOL Mason) February 09, 2025 8:53 AM documented in this encounterMercer County Community Hospital05-25-2025 NoteHNO ID: [id number] Author: SHALOM MURPHY RT(R) Service: ? Author Type: Technologist Type: Progress Notes Filed: 02/09/2025 08:53 Note Text: Radiology Service Progress Note PATIENT NAME: Yaneth Dennis DATE OF SERVICE: February 09, 2025 TIME: 8:53 AM PATIENT IDENTITY VERIFICATION COMPLETED USING TWO (2) IDENTIFIERS: Name and Date of confirmed by patient verbally. FALL SCREENING: Has the patient had 2 falls in the last year or 1 fall with injury or currently using an Ambulatory Assistive Device (Walker, Cane, Wheelchair, Crutches, etc.)? No PATIENT GENDER DATA: Assigned female at . status: : No status: NO. PATIENT RELEVANT IMPLANT DATA REVIEWED: Not Applicable PATIENT PRESENTS WITH AN IMPLANTABLE OR ATTACHED NUCLEAR PHARMACIST: No RADIOLOGY DEPARTMENT: CT; Exam(s) Completed: Spine PERIPHERAL IV DATA: Not applicable SIGNED BY: ANMOL Mason) February 09, 2025 8:53 AMCache Valley HospitalAkbcogdk33-64-1895 NoteHNO ID: [id number] Author: SUMEET DE LA CRUZ MD Service: ? Author Type: Physician Type: Progress Notes Filed: 02/24/2025 10:37 Note Text: SPINE SURGERY ESTABLISHED This is an in-person visit. Staff note: VANESSA Wolfe is a 24-year-old female presenting with back pain. Yaneth reports experiencing back pain primarily located in the middle and right side. She expresses concern about engaging in physical therapy due to fear of exacerbating her condition, especially given her history of spinal surgery involving screws placed in the cord. ROS Musculoskeletal: (+) right-sided back pain PE General: Appears well. Back: Midline tenderness, right-sided tenderness. Skin: Normal appearance. baseline neurologial examination AP 1. Arthrodesis status (Z98.1) 2. Spinal stenosis of cervical region (M48.02) - Patient presents with localized pain in the mid-back, primarily on the right side. - Physical examination reveals no skin abnormalities. - Ordered X-rays to assess stability of the spine. - Ordered CT scan of the entire spine to evaluate the condition of the screws and fusion mass, and to ensure proper healing. - Discussed the importance of physical therapy post-imaging to aid in recovery. - Consideration for muscle relaxants post-imaging if necessary. - Reassured patient that while pain is acknowledged, there is no immediate concern for catastrophic issues. - Will review CT scan results thoroughly and follow up with the patient. - Get x-rays of your spine today to confirm that everything is stable; these have been ordered for you. - Schedule a CT scan of your entire spine (including the area around your hips) at the [facility] facility; the imaging order has been sent. - We will review your x-rays and CT images and call you with results. If all screws and fusion sites look stable, you can begin physical therapy and start muscle relaxant medication as discussed. - Ask your airline pilot flight instructor to fax the requested paperwork again to our office; nurse Rashad will confirm the correct fax number and let you know once it?s received. 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 Overall she did well from this revision surgery though has unchanged complaints of balance issues and lower extremity decreased sensation. We are seeing her today because of new complaints of a bump in between her shoulder blades. She describes first noticing this bump 3 to 4 months ago. It increases and decreases in swelling and pain. Sometimes appearing bruised. She denies any new neurologic complaints. She has at baseline bilateral lower extremity weakness as well as issues with balance. These all began after her initial AIS surgery done at an outside hospital. At last visit it was recommended that we obtain repeat CT scans however this was not obtained. REVIEW OF SYSTEMS: GENERAL: No weight loss or malaise MUSCULOSKELETAL: Negative for joint pain, swelling or muscle pain NEURO: No history of headaches, syncope, paralysis, seizures or tremors MEDICATIONS: dextroamphetamine-amphetamine (ADDERALL) 10 mg tablet Take 10 mg by mouth once daily. amphetamine-dextroamphetamine XR (ADDERALL XR) 10 mg capsule Take 10 mg by mouth once daily. tiZANidine HCl (ZANAFLEX) 4 mg capsule Take 4 mg by mouth daily at bedtime. acetaminophen (TYLENOL) 500 mg tablet 2 tablets by ORAL/FEEDING TUBE route every 6 hours as needed for pain. Norethin Caden-Eth Estrad-FE (10/07, ,) 1 mg-20 mcg (21)/75 mg (7) per tablet TAKE 1 TABLET BY MOUTH EVERY DAY escitalopram oxalate (LEXAPRO) 20 mg tablet Take 30 mg by mouth every afternoon. hydrOXYzine HCl (ATARAX) 25 mg tablet TAKE 1 TABLET BY MOUTH 4 TIMES A DAY NEEDED FOR ANXIETY methocarbamol (ROBAXIN) 750 mg tablet Take 1 tablet by mouth every 6 hours as needed. (Patient not taking: Reported on 01/02/2024) senna-docusate (SENNA-S) 8.6-50 mg per tablet Take 2 tablets by mouth two times a day. (Patient not taking: Reported on 01/02/2024) Patient Entered Questionnaires 10/14/2023 12/26/2023 01/29/2025 Spine Questions Pain Location: Upper back/torso Upper back/torso Upper back/torso Pain Duration: More than 5 years 3-6 months Pain over last 6 months: Less than half the days in the past 6 months At least half the days in the past 6 months Symptoms from neck/cervical spine: Yes Yes Yes Employment Status: Other Other Off work 1 month or more due to back/neck pain: Does not apply Does not apply Applied for/receive disability/WC due to low back/neck pain Does not apply Does not apply Involved in law suit/legal claim: No 07/25/2023 12/26/2023 01/29/2025 Neck Questionnaires Benzel Modified LEONARD Score 18 (No Myelopathy Symptoms) (more content not included)...[facility]05-21-2025 History of Present illness Narrative* Sumeet De La Cruz MD - 02/05/2025 3:04 PM EDT Images from the original note were not included. SPINE SURGERY ESTABLISHED This is an in-person visit. Staff note: VANESSA Wolfe is a 24-year-old female presenting with back pain. Yaneth reports experiencing back painprimarily located in the middle and right side. She expresses concern about engaging in physical therapy due to fear of exacerbating her condition, especially given her history of spinal surgery involving screws placed in the cord. ROS Musculoskeletal: (+) right-sided back pain PE General: Appears well. Back: Midline tenderness, right-sided tenderness. Skin: Normal appearance. baseline neurologial examination AP 1. Arthrodesis status (Z98.1) 2. Spinal stenosis of cervical region (M48.02) - Patient presents with localized pain in the mid-back, primarily on the right side. - Physical examination reveals no skin abnormalities. - Ordered X-rays to assess stability of the spine. - Ordered CT scan of the entire spine to evaluate the condition of the screws and fusion mass, and to ensure proper healing. - Discussed the importance of physical therapy post-imaging to aid in recovery. - Consideration for muscle relaxants post-imaging if necessary. - Reassured patient that while pain is acknowledged, there is no immediate concern for catastrophicissues. - Will review CT scan results thoroughly and follow up with the patient. - Get x-rays of your spine today to confirm that everything is stable; these have been ordered for you. - Schedule a CT scan of your entire spine (including the area around your hips) at the [facility] facility; the imaging order has been sent. - We will review your x-rays and CT images and call you with results. If all screws and fusion sites look stable, you can begin physical therapy and start muscle relaxant medication as discussed. - Ask your airline pilot flight instructor to fax the requested paperwork again to our office; nurse Spears will confirm the correct fax number and let you know once it s received. Sumeet De La Cruz MD DATE OF SERVICE: 02/05/2025 DATE OF LAST VISIT: 01/02/2024 SUBJECTIVE: HPI:Yaneth Dennis is a 24 year old female who is status post revision of T2- L3 posterior spinalinstrumented fusion done previously for AIS with some malposition screws and pseudoarthrosis. Overall she did well from this revision surgery though has unchanged complaints of balance issues and lower extremity decreased sensation. We are seeing her today because of new complaints of a bump in between her shoulder blades. She describes first noticing this bump 3 to 4 months ago. It increases and decreases in swelling and pain. Sometimes appearing bruised. She denies any new neurologic complaints. She has at baseline bilateral lower extremity weakness aswell as issues with balance. These all began after her initial AIS surgery done at an outside hospital. At last visit it was recommended that we obtain repeat CT scans however this was not obtained. REVIEW OF SYSTEMS: GENERAL: No weight loss or malaise MUSCULOSKELETAL: Negative for joint pain, swelling or muscle pain NEURO: No history of headaches, syncope, paralysis, seizures or tremors MEDICATIONS: dextroamphetamine-amphetamine (ADDERALL) 10 mg tablet Take 10 mg by mouth once daily. amphetamine-dextroamphetamine XR (ADDERALL XR) 10 mg capsule Take 10 mg by mouth once daily. tiZANidine HCl (ZANAFLEX) 4 mg capsule Take 4 mg by mouth daily at bedtime. acetaminophen (TYLENOL) 500 mg tablet 2 tablets by ORAL/FEEDING TUBE route every 6 hours as needed for pain. Norethin Caden-Eth Estrad-FE (10/07, ,) 1 mg-20 mcg (21)/75 mg (7) per tablet TAKE 1 TABLET BY MOUTH EVERY DAY escitalopram oxalate (LEXAPRO) 20 mg tablet Take 30 mg by mouth every afternoon. hydrOXYzine HCl (ATARAX) 25 mg tablet TAKE 1 TABLET BY MOUTH 4 TIMES A DAY NEEDED FOR ANXIETY methocarbamol (ROBAXIN) 750 mg tablet Take 1 tablet by mouth every 6 hours as needed. (Patient not taking: Reported on 01/02/2024) senna-docusate (SENNA-S) 8.6-50 mg per tablet Take 2 tablets by mouth two times a day. (Patient nottaking: Reported on 01/02/2024) Patient Entered Questionnaires 10/14/2023 12/26/2023 01/29/2025 Spine Questions Pain Location: Upper back/torso Upper back/torso Upper back/torso Pain Duration: More than 5 years 3-6 months Pain over last 6 months: Less than half the days in the past 6 months At least half the days in thepast 6 months Symptoms from neck/cervical spine: Yes Yes Yes Employment Status: Other Other Off work 1 month or more due to back/neck pain: Does not apply Does not apply Applied for/receive disability/WC due to low back/neck pain Does not apply Does not apply Involved in law suit/legal claim: No 07/25/2023 12/26/2023 01/29/2025 Neck Questionnaires Benzel Modified LEONARD Score 18 (No Myelopathy Symptoms) Incomplete Incomplete PROMIS Score Percentiles 10/14/2023 12/26/2023 01/29/2025 Physical Health Physical Function Percentile 8 1 Sleep Percentile 10 10 Fatigue Percentile 12 38 Pain Interference Percentile 14 4 08/28/2023 10/14/2023 01/29/2025 PROMIS SOCIAL ROLE SCORE Social Role Satisfaction Percentile 24* 8 12 10/14/2023 12/26/2023 01/29/2025 PROMIS Global Health Scale Physical Health Percentile 4 4 4 4 7 Mental Health Percentile 3 3 3 3 13 Patient-reported Multiple values from one day are sorted in reverse-chronological order Percentiles provide an indication of how the patient's score ranks in relation to the general population. Higher percentile rankings indicate better function/quality of life. 50th percentile is the average of the general population and indicates half of respondents had a worse score. Descriptive Summary for PROMIS Physical Function T-score = 28 (Percentile 1) Unable - Do 2 hours of physical labor Unable - Walk at a normal speed. Depression Screenin10/14/2023 12/26/2023 01/29/2025 PHQ-9 Score 14 14 14 14 19 Multiple values from one day are sorted in reverse-chronological order 10/14/2023 12/26/2023 01/29/2025 PHQ-9 Self-harm Question Question 9 More than half the days More than half the days More than half the days PHQ-9 Self-Harm (Item 9) response options: 0 Not at all 1 Several days 2 More than half the days 3 Nearly every day PHQ-9 Levels: 0-4 No to mild depression 5-9 Mild depression 10-14 Moderate depression 15-19 Moderately severe depression 20-27 Severe depression OBJECTIVE: PHYSICAL EXAM: BP 119/76 Pulse 70 Resp 18 Ht 5' 8 (1.73m) Wt 191 lb 12.8 oz (87.0kg) SpO2 99% LMP 01/13/2025 BMI 29.17 kg/(m^2). GENERAL APPEARANCE: Well nourished, well developed, and no apparent distress. NEURO PSYCH: Patient oriented to person, place, and time. Mood pleasant. Benign affect. MUSCULOSKELETAL VISUAL INSPECTION CERVICAL: WNL THORACIC: WNL LUMBAR: WNL Palpable upper thoracic screw on right sided that is tender to palpation. No skin breakdown. No swelling or erythema. MOTOR: 5/5 in all muscle groups. SENSORY: decreased bilateral lower extremity sensation at baseline GAIT: Normal though difficulty with tandem gait (at baseline) DATA REVIEW:Diagnostic tests reviewed for today's visit, films/specimens were personally reviewed by me: No new imaging ASSESSMENT/PLAN (Z98.1) Arthrodesis status (primary encounter diagnosis) (M48.02) Spinal stenosis of cervical region Yaneth Dennis has a prominent right sided upper thoracic screw that is not threatening her skin. Given ongoing complaints of balance and lower extremity sensory issues in addition to painful hardware, we recommend CT full spine as well as updated scoliosis XR. We will call patient with results once completed. Sumeet De La Cruz MD SIGNATURE: Sumeet De La Cruz MD PATIENT NAME: Yaneth Dennis DATE: February 05, 2025 TIME: 3:05 PM PAGER: [facility] NoteNonvisit Note - PT Pt. no showed to today's 1400 evaluation. She then called to re-schedule it at 1420.-- [facility]03-12-2025 Evaluation + Plan note Future Scheduled Tests Radiology* MRI Spine Cervical w/o Contrast 11/27/24 * MRI Spine Lumbar w/o Contrast 11/27/24 * MRI Spine Thoracic w/o Contrast 11/27/24 [facility] [id number] Miscellaneous Notes* Telephone Encounter - Maria De Jesus Wagner RN - 11/26/2024 2:42 PM EDT Pt was seen at [facility] in [place], [place]. Ph. [phone]. She was seen in the ER on 11/24 Called and requested notes be faxed to our office. * Telephone Encounter - Maria De Jesus Wagner RN - 11/26/2024 1:25 PM EDT Date of Surgery 07/11/2023: Revision T2-L3 posterior spinal fusion [facility]: 01/02/24 w/ DP NOV: not yet scheduled Per Staff Note at [facility]: Doing well postop, would like to ensure healing of fusion, imaging ordered commensurate with current complaints. Recs to follow imaging Update shared w/ CB for review. [facility] Telephone encounter Note * Telephone Encounter - Maria De Jesus Wagner RN - 11/26/2024 2:42 PM EDT Pt was seen at [facility] in [place], [place]. Ph. [phone]. She was seen in the ER on 11/24 Called and requested notes be faxed to our office. [facility]03-11-2025 Telephone encounter Note* Telephone Encounter - Maria De Jesus Wagner RN - 11/26/2024 1:25 PM EDT Date of Surgery 07/11/2023: Revision T2-L3 posterior spinal fusion [facility]: 01/02/24 w/ DP NOV: not yet scheduled Per Staff Note at [facility]: Doing well postop, would like to ensure healing of fusion, imaging ordered commensurate with current complaints. Recs to follow imaging Update shared w/ CB for review. [facility]03-09-2025 NoteED Patient Education Note Orthopedics Acute Back Pain, Adult Acute back pain is sudden and usually short-lived. It is often caused by an injury to the muscles and tissues in the back. The injury may result from: ??? A muscle, tendon, or ligament getting overstretched or torn. Ligaments are tissues that connectbones to each other. Lifting something improperly can cause a back strain. ??? Wear and tear (degeneration) of the spinal disks. Spinal disks are circular tissue that providecushioning between the bones of the spine (vertebrae). ??? Twisting motions, such as while playing sports or doing yard work. ??? A hit to the back. ??? Arthritis. You may have a physical exam, lab tests, and imaging tests to find the cause of your pain. Acute back pain usually goes away with rest and home care. Follow these instructions at home: Managing pain, stiffness, and swelling ??? Take pskr-ree-jxjkptc and prescription medicines only as told by your health care provider. Treatment may include medicines for pain and inflammation that are taken by mouth or applied to the skin, or muscle relaxants. ??? Your health care provider may recommend applying ice during the first 24?48 hours after your pain starts. To do this: ? Put ice in a plastic bag. ? Place a towel between your skin and the bag. ? Leave the ice on for 20 minutes, 2?3 times a day. ? Remove the ice if your skin turns bright red. This is very important. If you cannot feel pain, heat, or cold, you have a greater risk of damage to the area. ??? If directed, apply heat to the affected area as often as told by your health care provider. Usethe heat source that your health care provider recommends, such as a moist heat pack or a heating pad. ? Place a towel between your skin and the heat source. ? Leave the heat on for 20?30 minutes. ? Remove the heat if your skin turns bright red. This is especially important if you are unable to feel pain, heat, or cold. You have a greater risk of getting burned. Activity ??? Do not stay in bed. Staying in bed for more than 1?2 days can delay your recovery. ??? Sit up and stand up straight. Avoid leaning forward when you sit or hunching over when you stand. ? If you work at a desk, sit close to it so you do not need to lean over. Keep your chin tucked in.Keep your neck drawn back, and keep your elbows bent at a 90-degree angle (right angle). ? Sit high and close to the steering wheel when you drive. Add lower back (lumbar) support to your car seat, if needed. ??? Take short walks on even surfaces as soon as you are able. Try to increase the length of time you walk each day. ??? Do not sit, drive, or machinist helper marine one place for more than 30 minutes at a time. Sitting or standing for long periods of time can put stress on your back. ??? Do not drive or use heavy machinery while taking prescription pain medicine. ??? Use proper lifting techniques. When you bend and lift, use positions that put less stress on your back: ? Bend your knees. ? Keep the load close to your body. ? Avoid twisting. ??? Exercise regularly as told by your health care provider. Exercising helps your back heal fasterand helps prevent back injuries by keeping muscles strong and flexible. ??? Work with a physical therapist to make a safe exercise program, as recommended by your health care provider. Do any exercises as told by your physical therapist. Lifestyle ??? Maintain a healthy weight. Extra weight puts stress on your back and makes it difficult to havegood posture. ??? Avoid activities or situations that make you feel anxious or stressed. Stress and anxiety increase muscle tension and can make back pain worse. Learn ways to manage anxiety and stress, such as through exercise. General instructions ??? Sleep on a firm mattress in a comfortable position. Try lying on your side with your knees slightly bent. If you lie on your back, put a pillow under your knees. ??? Keep your head and neck in a straight line with your spine (neutral position) when using electronic equipment like smartphones or pads. To do this: ? Raise your smartphone or pad to look at it instead of bending your head or neck to look down. ? Put the smartphone or pad at the level of your face while looking at the screen. ??? Follow your treatment plan as told by your health care provider. This may include: ? Cognitive or behavioral therapy. ? Acupuncture or massage therapy. ? Meditation or yoga. Contact a health care provider if: ??? You have pain that is not relieved with rest or medicine. ??? You have increasing pain going down into your legs or buttocks. ??? Your pain does not improve after 2 weeks. ??? You have pain at night. ??? You lose weight without trying. ??? You have a fever or chills. ??? You develop nausea or vomiting. ??? You develop abdominal pain. Get help right away if: ??? You develop new bowel or bladder control problems. ??? Y (more content not included)...[facility]06-25-2024 Hospital Discharge instructions Patient Education 03/12/2024 16:15:28 Obesity, Adult, [id number]-Rjea Obesity, Adult Obesity is having too much body fat. Being obese means that your weight is more than what is healthy for you. BMI (body mass index) is a number that explains how much body fat you have. If you have a BMI of 30or more, you are obese. Obesity can cause serious health problems, such as: Stroke. Coronary artery disease (CAD). Type 2 diabetes. Some types of cancer. High blood pressure (hypertension). High cholesterol. Gallbladder stones. Obesity can also contribute to: Osteoarthritis. Sleep apnea. Infertility problems. What are the causes? Eating meals each day that are high in calories, sugar, and fat. Drinking a lot of drinks that have sugar in them. Being born with genes that may make you more likely to become obese. Having a medical condition that causes obesity. Taking certain medicines. Sitting a lot (having a sedentary lifestyle). Not getting enough sleep. What increases the risk? Having a family history of obesity. Living in an area with limited access to: ?[place], recreation centers, or sidewalks. ?Healthy food choices, such as grocery stores and [employer] markets. What are the signs or symptoms? The main sign is having too much body fat. How is this treated? Treatment for this condition often includes changing your lifestyle. Treatment may include: Changing your diet. This may include making a healthy meal plan. Exercise. This may include activity that causes your heart to beat faster (aerobic exercise) and strength training. Work with your doctor to design a program that works for you. Medicine to help you lose weight. This may be used if you are not able to lose one pound a week after 6 weeks of healthy eating and more exercise. Treating conditions that cause the obesity. Surgery. Options may include gastric banding and gastric bypass. This may be done if: ?Other treatments have not helped to improve your condition. ?You have a BMI of 40 or higher. ?You have life-threatening health problems related to obesity. Follow these instructions at home: Eating and drinking Follow advice from your doctor about what to eat and drink. Your doctor may tell you to: ?Limit fast food, sweets, and processed snack foods. ?Choose low-fat options. For example, choose low-fat milk instead of whole milk. ?Eat five or more servings of fruits or vegetables each day. ?Eat at home more often. This gives you more control over what you eat. ?Choose healthy foods when you eat out. ?Learn to read food labels. This will help you learn how much food is in one serving. ?Keep low-fat snacks available. ?Avoid drinks that have a lot of sugar in them. These include soda, fruit juice, iced tea with sugar, and flavored milk. Drink enough water to keep your pee (urine) pale yellow. Do not go on fad diets. Physical activity Exercise often, as told by your doctor. Most adults should get up to 150 minutes of moderate-intensity exercise every week.Ask your doctor: ?What types of exercise are safe for you. ?How often you should exercise. Warm up and stretch before being active. Do slow stretching after being active (cool down). Rest between times of being active. Lifestyle Work with your doctor and a food expert (dietitian) to set a weight-loss goal that is best for you. Limit your screen time. Find ways to reward yourself that do not involve food. Do not drink alcohol if: ?Your doctor tells you not to drink. ?You are , may be , or are planning to become . If you drink alcohol: ?Limit how much you have to: ?0 1 drink a day for women. ?0 2 drinks a day for men. ?Know how much alcohol is in your drink. In the [place] one drink equals one 12 oz bottle of beer (355 mL), one 5 oz glass of wine (148 mL), or one 1 oz glass of hard liquor (44 mL). General instructions Keep a weight-loss journal. This can help you keep track of: ?The food that you eat. ?How much exercise you get. Take hokg-ewr-kvhjryb and prescription medicines only as told by your doctor. Take vitamins and supplements only as told by your doctor. Think about joining a support group. Pay attention to your mental health as obesity can lead to depression or self esteem issues. Keep all follow-up visits. Contact a doctor if: You cannot meet your weight-loss goal after you have changed your diet and lifestyle for 6 weeks. You are having trouble breathing. Summary Obesity is having too much body fat. Being obese means that your weight is more than what is healthy for you. Work with your doctor to set a weight-loss goal. Get regular exercise as told by your doctor. This information is not intended to replace advice given to you by your health care provider. Make sure you discuss any questions you have with your health care provider. Document Revised: 04/12/2022 Document Reviewed: 04/12/2022 [employer] Patient Education 2022 [employer]. Follow Up Care 02/07/2024 12:24:41 With:Bianka WOODS CNP Address: [address] [place] [phone]- When:Within 6 Month(s) [facility] 05-28-2024 Hospital Discharge instructions Patient Education 02/13/2024 15:20:06 Urinary Tract Infection, Adult Urinary Tract Infection, Adult A urinary tract infection (UTI) is an infection of any part of the urinary tract. The urinary tractincludes the kidneys, ureters, bladder, and urethra. These organs make, store, and get rid of urinein the body. An upper UTI affects the ureters and kidneys. A lower UTI affects the bladder and urethra. What are the causes? Most urinary tract infections are caused by bacteria in your genital area around your urethra, where urine leaves your body. These bacteria grow and cause inflammation of your urinary tract. What increases the risk? You are more likely to develop this condition if: You have a urinary catheter that stays in place. You are not able to control when you urinate or have a bowel movement (incontinence). You are female and you: ?Use a spermicide or diaphragm for control. ?Have low estrogen levels. ?Are . You have certain genes that increase your risk. You are sexually active. You take antibiotic medicines. You have a condition that causes your flow of urine to slow down, such as: ?An enlarged prostate, if you are male. ?Blockage in your urethra. ?A kidney stone. ?A nerve condition that affects your bladder control (neurogenic bladder). ?Not getting enough to drink, or not urinating often. You have certain medical conditions, such as: ?Diabetes. ?A weak disease-fighting system (immunesystem). ?Sickle cell disease. ?Gout. ?Spinal cord injury. What are the signs or symptoms? Symptoms of this condition include: Needing to urinate right away (urgency). Frequent urination. This may include small amounts of urine each time you urinate. Pain or burning with urination. Blood in the urine. Urine that smells bad or unusual. Trouble urinating. Cloudy urine. Vaginal discharge, if you are female. Pain in the abdomen or the lower back. You may also have: Vomiting or a decreased appetite. Confusion. Irritability or tiredness. A fever or chills. Diarrhea. The first symptom in older adults may be confusion. In some cases, they may not have any symptoms until the infection has worsened. How is this diagnosed? This condition is diagnosed based on your medical history and a physical exam. You may also have other tests, including: Urine tests. Blood tests. Tests for STIs (sexually transmitted infections). If you have had more than one UTI, a cystoscopy or imaging studies may be done to determine the cause of the infections. How is this treated? Treatment for this condition includes: Antibiotic medicine. Kerq-zfp-jnlfdsh medicines to treat discomfort. Drinking enough water to stay hydrated. If you have frequent infections or have other conditions such as a kidney stone, you may need to see a health care provider who specializes in the urinary tract (urologist). In rare cases, urinary tract infections can cause sepsis. Sepsis is a life- threatening condition that occurs when the body responds to an infection. Sepsis is treated in the hospital with IV antibiotics, fluids, and other medicines. Follow these instructions at home: Medicines Take iicj-kkd-peiyphv and prescription medicines only as told by your health care provider. If you were prescribed an antibiotic medicine, take it as told by your health care provider. Do notstop using the antibiotic even if you start to feel better. General instructions Make sure you: ?Empty your bladder often and completely. Do not hold urine for long periods of time. ?Empty your bladder after sex. ?Wipe from front to back after urinating or having a bowel movement if you are female. Use each tissue only one time when you wipe. Drink enough fluid to keep your urine pale yellow. Keep all follow-up visits. This is important. Contact a health care provider if: Your symptoms do not get better after 1 2 days. Your symptoms go away and then return. Get help right away if: You have severe pain in your back or your lower abdomen. You have a fever or chills. You have nausea or vomiting. Summary A urinary tract infection (UTI) is an infection of any part of the urinary tract, which includes the kidneys, ureters, bladder, and urethra. Most urinary tract infections are caused by bacteria in your genital area. Treatment for this condition often includes antibiotic medicines. If you were prescribed an antibiotic medicine, take it as told by your health care provider. Do notstop using the antibiotic even if you start to feel better. Keep all follow-up visits. This is important. This information is not intended to replace advice given to you by your health care provider. Make sure you discuss any questions you have with your health care provider. Document Revised: 04/16/2021 Document Reviewed: 04/16/2021 [employer] Patient Education 2022 [employer]. Follow Up Care 02/13/2024 12:38:04 With:Bianka WOODS Address: [address] [place] [phone]- Business (1) When:02/16/2024 15:05:07 [facility]05-28-2024 Evaluation + Plan noteExtracted from: Title:ED NoteAuthor:Max RAMOS, JansenDate:02/13/24 Bacterial infection, unspeci fied (A49.9: Bacterial infection, unspecified) UTI (urinary tract infection), bacterial (N39.0: Urinary tract infection, site not specified) Orders: cephalexin, 500 mg = 1 cap(s), Oral, q12hr, X 7 day(s), # 14 cap(s), Refills(s) 0, Pharmacy: [facility]/pharmacy #[id number], 172.7, cm, 02/13/24 12:50:00 EDT, Height/Length Dosing, 97, kg, 02/13/24 12:50:00 EDT,Weight Dosing ketorolac, 30 mg = 1 mL, Injection, IV Push, Once, Stop date 02/13/24 12:57:00 EDT, STAT, Start date 02/13/24 12:57:00 EDT, 02/13/24 12:57:00 EDT naproxen, 500 mg = 1 tab(s), Oral, BID, # 20 tab(s), Refills(s) 0, Pharmacy: [facility]/pharmacy #[id number], 172.7, cm, 02/13/24 12:50:00 EDT, Height/Length Dosing, 97, kg, 02/13/24 12:50:00 EDT, Weight Dosing Sodium Chloride 0.9% intravenous solution, 1,000 mL, Soln-IV, IV, Once, Stop date 02/13/24 12:57:00EDT, STAT, Start date 02/13/24 12:57:00 EDT, Infuse over 61, minute(s) Basic Metabolic Panel Beta hCG Qual CBC w/ Auto Diff CT Abdomen/Pelvis w/o Contrast eGFR Extra Blue Tube Hepatic Function Panel Lipase Level UA with Cult Rflx Urine Culture Future Appointments Appointment Date:03/05/2024 03:00:00 PM Scheduled Provider:Jacey Colvin Location:[facility] Appointment Type: Therapy 60 Appointment Date:03/11/2024 02:20:00 PM Scheduled Provider:Bianka WOODS CNP Location:[facility] Appointment Type: Open Appointment Date:03/12/2024 03:00:00 PM Scheduled Provider:Jacey Colvin Location:[facility] Appointment Type: Therapy 60 Diagnostic Tests Pending * Urine Culture 02/13/24 Future Scheduled Tests Radiology* CT Abdomen/Pelvis w/ Contrast 06/20/23 [facility]05-10-2024 Hospital Discharge instructions Patient Education 01/26/2024 17:15:11 Laceration Care, Adult, Lgmv-wu-Drpk Laceration Care, Adult A laceration is a cut that may go through all layers of the skin. The cut may also go into the tissue that is right under the skin. Some cuts heal on their own. Other cuts need to be closed with stitches (sutures), leora, skin adhesive strips, or skin glue. Taking care of your cut lowers your risk of infection, helps your injury heal better, and may prevent scarring. General tips Keep your wound clean and dry. Do not scratch or pick at your wound. Wash your hands with soap and water for at least 20 seconds before and after touching your wound orchanging your bandage (dressing). If you cannot use soap and water, use hand sales representative printing. Do not usedisinfectants or antiseptics, such as rubbing alcohol, to clean your wound unless told byyour doctor. If you were given a bandage, change it at least once a day, or as told by your doctor. You should also change it if it gets wet or dirty. How to take care of your cut If your doctor used stitches or leora: Keep the wound fully dry for the first 24 hours, or as told by your doctor. After that, you may take a shower or a bath. Do not soak the wound in water until after the stitches or leora have been taken out. Clean the wound once a day, or as told by your doctor. To do this: ?Wash the wound with soap and water. ?Rinse the wound with water to remove all soap. ?Pat the wound dry with a clean towel. Do not rub the wound. After you clean the wound, put a thin layer of antibiotic ointment, another ointment, or a nonstickbandage on it as told by your doctor. This will help to: ?Prevent infection. ?Keep the bandage from sticking to the wound. Have your stitches or leora taken out as told by your doctor. If your doctor used skin adhesive strips: Do not get the skin adhesive strips wet. You can take a shower or a bath, but keep the wound dry. If the wound gets wet, pat it dry with a clean towel. Do not rub the wound. Skin adhesive strips fall off on their own. You can trim the strips as the wound heals. Do not takeoff any strips that are still stuck to the wound unless told by your doctor. The strips will fall off after a while. If your doctor used skin glue: You may take a shower or a bath, but try to keep the wound dry. Do not soak the wound in water. After you take a shower or a bath, pat the wound dry with a clean towel. Do not rub the wound. Do not do any activities that will make you sweat a lot until the skin glue has fallen off. Do not apply liquid, cream, or ointment medicine to your wound while the skin glue is still on. If a bandage is placed over the wound, do not put tape right on top of the skin glue. Do not pick at the glue. The skin glue usually stays on for 5 10 days. Then, it falls off the skin. Follow these instructions at home: Medicines Take kkms-qdb-cecnfaa and prescription medicines only as told by your doctor. If you were prescribed an antibiotic medicine, take or apply it as told by your doctor. Do not stopusing it even if you start to feel better. Managing pain and swelling If told, put ice on the injured area. To do this: ?Put ice in a plastic bag. ?Place a towel between your skin and the bag. ?Leave the ice on for 20 minutes, 2 3 times a day. ?Take off the ice if your skin turns bright red. This is very important. If you cannot feel pain, heat, or cold, you have a greater risk of damage to the area. Raise the injured area above the level of your heart while you are sitting or lying down. General instructions Avoid any activity that could make your wound reopen. Check your wound every day for signs of infection. Check for: ?More redness, swelling, or pain. ?Fluid or blood. ?Warmth. ?Pus or a bad smell. Keep all follow-up visits. Contact a doctor if: You got a tetanus shot and you have any of these problems where the needle went in: ?Swelling. ?Very bad pain. ?Redness. ?Bleeding. A wound that was closed breaks open. You have a fever. You have any of these signs of infection in your wound: ?More redness, swelling, or pain. ?Fluid or blood. ?Warmth. ?Pus or a bad smell. You see something coming out of the wound, such as wood or glass. Medicine does not make your pain go away. You notice a change in the color of your skin near your wound. You need to change the bandage often. You have a new rash. You lose feeling (have numbness) around the wound. Get help right away if: You have very bad swelling around the wound. Your pain suddenly gets worse and is very bad. You have painful lumps near the wound or on skin anywhere on your body. You have a red streak going away from your wound. The wound is on your hand or foot, and: ?You cannot move a finger or toe. ?Your fingers or toes look pale or bluish. Summary A laceration is a cut that may go through all layers of the skin. The cut may also go into the tissue right under the skin. Some cuts heal on their own. Others need to be closed with stitches, leora, skin adhesive strips,or skin glue. Follow your doctor's instructions for caring for your cut. Proper care of a cut lowers the risk of infection, helps the cut heal better, and may prevent scarring. This information is not intended to replace advice given to you by your health care provider. Make sure you discuss any questions you have with your health care provider. Document Revised: 11/11/2021 Document Reviewed: 11/11/2021 [employer] Patient Education 2022 [employer]. Follow Up Care 01/26/2024 15:28:40 With:Bianka WOODS Address: [address] [place] [address] Business (1) When:01/29/2024 16:45:17 Comments:Call Dr for diagnosis based follow up. Sutures to be removed in 7-10 days. Keep the area dry for 2 days, then may use soap and water to clean around the area. Discussed signs of infection, and when to report to the emergency department. [facility]05-10-2024 Evaluation + Plan noteExtracted from: Title:ED NoteAuthor:Smith RAMOS, Daniel Reyna.Date:01/26/24 Abrasion of left little fing er (S60.417A: Abrasion of left little finger, initial encounter) Laceration of left leg (S81.812A: Laceration without foreign body, left lower leg, initial encounter) Orders: epinephrine-lidocaine, 20 mL, Injection, SubCutaneous, Once, Stop date 01/26/24 15:56:00 EDT, Startdate 01/26/24 15:56:00 EDT epinephrine-lidocaine, 20 mL, Injection, SubCutaneous, Once, Stop date 01/26/24 17:00:00 EDT, Startdate 01/26/24 17:00:00 EDT tetanus/diphtheria/pertussis, acel (Tdap), 0.5 mL, Injection, Intramuscular- Immunization, Once, Stop date 01/26/24 15:48:00 EDT, STAT, Start date 01/26/24 15:48:00 EDT Future Appointments Appointment Date:01/30/2024 03:00:00 PM Scheduled Provider:Jacey Colvin Location:[facility] Appointment Type:BH Therapy 60 Appointment Date:03/05/2024 03:00:00 PM Scheduled Provider:Jacey Colvin Location:[facility] Appointment Type:BH Therapy 60 Appointment Date:03/12/2024 03:00:00 PM Scheduled Provider:Jacey Colvin Location:[facility] Appointment Type:BH Therapy 60 Future Scheduled Tests Radiology* CT Abdomen/Pelvis w/ Contrast 06/20/23 [facility]04-23-2024 Telephone encounter Note* Telephone Encounter - Concha Mcbride - 01/09/2024 12:16 PM EDT 01/02/[address] De La Cruz not completed; imaging appt was denied due to lack of documentation. [facility]04-23-2024 Miscellaneous Notes* Telephone Encounter - Concha Mcbride - 01/09/2024 12:16 PM EDT 01/02/[address] De La Cruz not completed; imaging appt was denied due to lack of documentation. [facility] History of Present illness Narrative* Sumeet De La Cruz MD - 01/02/2024 1:10 PM EDT Images from the original note were not included. ORTHOPAEDIC SPINE SURGERY CLINIC FOLLOW UP NOTE Encounter Date: 01/02/2024 Staff note: Doing well postop, would like to ensure healing of fusion, imaging ordered commensurate with current complaints. Recs to follow imaging Sumeet De La Cruz MD Chief complaint: Postoperative exam History of present illness: Yaneth Dennis is a 23 year old female who returns to clinic today for postoperative visit. Surgery: 07/11/2023 - Revision T2 - L3 posterior spinal fusion Yaneth Dennis was last seen on 08/28/2023 at which time patient was approximately 7 weeks postop. Today, patient is approximately 6 months postop. Yaneth Dennis reports feeling well overall. Patient started taking tizanidine at night and having adequate pain control. She is continuing to have episodes of falls that are preceded with a weird sensation in her low back followed by bilateral thigh/leg weakness and falls. Most recent fall was about 3 weeks ago. Patient also continues to endorse numbness from her hips to her ankles, which is chronic (beginning prior to her first surgery). Past Medical History PAST MEDICAL HISTORY Diagnosis Date Depressive disorder Juvenile idiopathic scoliosis Social anxiety disorder Past Surgical History PAST SURGICAL HISTORY Procedure Laterality Date SCOLIOSIS surgery 2018 at [place] Social History Social History Tobacco Use Smoking status: Former Types: Cigarettes Quit date: 2019 Years since quittin.2 Passive exposure: Past Smokeless tobacco: Never Substance Use Topics Alcohol use: Not Currently Drug use: Yes Types: Marijuana Comment: Uses medical marijuana prn pain Family History Not contributory to visit. Review of Systems Negative or not contributory unless otherwise state in HPI. Physical Exam LMP 05/20/2023 (Exact Date) A&Ox3, NAD Breathing comfortably at rest RRR to peripheral palpation Focused Musculoskeletal Exam Spine Exam There was no gross deformity of the spine or obvious scoliosis Active range of motion of the neck normal with full flexion, extension, left and right rotation, left and right lateral bending There was no significant tenderness to palpation of the cervical, thoracic, or lumbar spine There was no significant tenderness to palpation of the paraspinal musculature bilaterally at the level of the thoracic and lumbar spine There was a well healed midline surgical scar at the level of the thoracic and lumbar spine that was well healed, and without surrounding erythema or drainage Gait: No abnormalities Sensation to light touch: Lower Extremities Right Left Medial upper thigh (L2) absent absent Medial knee (L3) absent absent Medial distal tibia (L4) absent absent Dorsum of first MTP (L5) present present Lateral heel (S1) present present Motor function: Lower Extremities Right Left Hip flexion (L2) 4+/5 5/5 Knee extension (L3) 5/5 5/5 Ankle dorsiflexion (L4) 5/5 5/5 Great toe extension (L5) 5/5 5/5 Ankle plantarflexion (S1) 5/5 5/5 Deep tendon reflexes: Lower Extremities Right Left Patellar tendon (L2, L3, L4) Normal Normal Long tract signs: Lower Extremities Right Left Spasticity Absent Absent Clonus Absent Absent Rectal tone: deferred INVESTIGATIONS Imaging Studies No new imaging obtained. XR Scoliosis (07/31/2023): Hardware in place without evidence failure. Assessment/Plan ASSESSMENT 6 months postop from a revision T2-L3 posterior spinal fusion doing well with some residual chronicsymptoms. PLAN New XR scoliosis today. MRI T and L spine CT T and L spine Follow up virtually to discuss imaging Follow up in office in 1 year. Precious Black MD PGY1 Resident Orthopaedic Surgery [facility] Hospital Discharge instructions Patient Education 11/16/2023 14:46:10 Obesity, Adult, Xgdy-gd-Exwg Obesity, Adult Obesity is having too much body fat. Being obese means that your weight is more than what is healthy for you. BMI (body mass index) is a number that explains how much body fat you have. If you have a BMI of 30or more, you are obese. Obesity can cause serious health problems, such as: Stroke. Coronary artery disease (CAD). Type 2 diabetes. Some types of cancer. High blood pressure (hypertension). High cholesterol. Gallbladder stones. Obesity can also contribute to: Osteoarthritis. Sleep apnea. Infertility problems. What are the causes? Eating meals each day that are high in calories, sugar, and fat. Drinking a lot of drinks that have sugar in them. Being born with genes that may make you more likely to become obese. Having a medical condition that causes obesity. Taking certain medicines. Sitting a lot (having a sedentary lifestyle). Not getting enough sleep. What increases the risk? Having a family history of obesity. Living in an area with limited access to: ?[place], recreation centers, or sidewalks. ?Healthy food choices, such as grocery stores and [employer]. What are the signs or symptoms? The main sign is having too much body fat. How is this treated? Treatment for this condition often includes changing your lifestyle. Treatment may include: Changing your diet. This may include making a healthy meal plan. Exercise. This may include activity that causes your heart to beat faster (aerobic exercise) and strength training. Work with your doctor to design a program that works for you. Medicine to help you lose weight. This may be used if you are not able to lose one pound a week after 6 weeks of healthy eating and more exercise. Treating conditions that cause the obesity. Surgery. Options may include gastric banding and gastric bypass. This may be done if: ?Other treatments have not helped to improve your condition. ?You have a BMI of 40 or higher. ?You have life-threatening health problems related to obesity. Follow these instructions at home: Eating and drinking Follow advice from your doctor about what to eat and drink. Your doctor may tell you to: ?Limit fast food, sweets, and processed snack foods. ?Choose low-fat options. For example, choose low-fat milk instead of whole milk. ?Eat five or more servings of fruits or vegetables each day. ?Eat at home more often. This gives you more control over what you eat. ?Choose healthy foods when you eat out. ?Learn to read food labels. This will help you learn how much food is in one serving. ?Keep low-fat snacks available. ?Avoid drinks that have a lot of sugar in them. These include soda, fruit juice, iced tea with sugar, and flavored milk. Drink enough water to keep your pee (urine) pale yellow. Do not go on fad diets. Physical activity Exercise often, as told by your doctor. Most adults should get up to 150 minutes of moderate-intensity exercise every week.Ask your doctor: ?What types of exercise are safe for you. ?How often you should exercise. Warm up and stretch before being active. Do slow stretching after being active (cool down). Rest between times of being active. Lifestyle Work with your doctor and a food expert (dietitian) to set a weight-loss goal that is best for you. Limit your screen time. Find ways to reward yourself that do not involve food. Do not drink alcohol if: ?Your doctor tells you not to drink. ?You are , may be , or are planning to become . If you drink alcohol: ?Limit how much you have to: ?0 1 drink a day for women. ?0 2 drinks a day for men. ?Know how much alcohol is in your drink. In the [place] one drink equals one 12 oz bottle of beer (355 mL), one 5 oz glass of wine (148 mL), or one 1 oz glass of hard liquor (44 mL). General instructions Keep a weight-loss journal. This can help you keep track of: ?The food that you eat. ?How much exercise you get. Take lnih-ptv-zkvocly and prescription medicines only as told by your doctor. Take vitamins and supplements only as told by your doctor. Think about joining a support group. Pay attention to your mental health as obesity can lead to depression or self esteem issues. Keep all follow-up visits. Contact a doctor if: You cannot meet your weight-loss goal after you have changed your diet and lifestyle for 6 weeks. You are having trouble breathing. Summary Obesity is having too much body fat. Being obese means that your weight is more than what is healthy for you. Work with your doctor to set a weight-loss goal. Get regular exercise as told by your doctor. This information is not intended to replace advice given to you by your health care provider. Make sure you discuss any questions you have with your health care provider. Document Revised: 04/12/2022 Document Reviewed: 04/12/2022 [employer] Patient Education 2022 [employer]. Follow Up Care 10/05/2023 15:15:04 With:Bianka WOODS CNP Address: [address] [place] [phone]- When:Within 6 Month(s) [facility] 02-08-2024 History of Present illness Narrative* Hernan Morales, PT - 10/26/2023 3:30 PM EST Time In: 3:25 PM Time Out: 3:57 PM Supervised Time: 32 min Total Time: 32 min Visit Number: 05/30 until 10/28/23 Chief Complaint: S/P thoracolumbar fusion on 07/12/[address] Sumeet De La Cruz 2. 15 weeks post op on 10/25/23 Precautions: s/p thoracolumbar fusion; Hx of scoliosis surgery with stephanie placed; bending, lifting and twisting restrictions Subjective Pain level: 6/10. Went to bend down last night and felt like they pulled a muscle in the right sideof their low back Progress: Patient reports 70% improvement since SOC Reports improved compliance with HEP; performing 2x/day. Patient wears brace with activity only, removes brace when at rest. Numbness/tingling: Reports no feeling in both legs since first scoliosis surgery when they were 2017 Objective Lumbar AROM: flexion: moderate restriction with right leg pain extension: Moderate restriction L side bend: Moderate restriction R side bend: Moderate restriction L rotation: Minimal restriction R rotation: Minimal restriction Shoulder ROM: R flex: 126* R abd: 128* R ER: T2 R IR: T4 L flex: 130* L abd: 130* L ER: T2 L IR: T4 Muscle Strength: R knee extension: 4/5 R knee flexion: 4+/5 R hip flexion: 4/5 R hip abduction: 3+/5 L knee extension: 4+/5 L knee flexion: 4+/5 L hip flexion: 4-/5 L hip abduction: 3+/5 Palpation: moderate tenderness of right lumbar paraspinals and QL; moderate tenderness of T2-T6 andthoracic paraspinals Incision site is healed well Muscle length: decreased paraspinals Back Index: 20/50 INTERVENTIONS: X 32 minutes of supervised exercise per flowsheet Fpc Goals: 1. The patient will achieve at least 4/5 B LE and core muscle strength in order to improve ability to perform ADLs and return to PLOF. Progressing but not Met 2. Patient will achieve at least minimal restriction of all lumbar AROM to improve functional mobility. Not MET 3. Patient will achieve at least 120 degrees of bilateral shoulder flexion and abduction AROM to improve functional mobility. MET 4. The patient will have decreased average pain to 2/10 or less during functional activities. Partial Met (pain fluctuates) 5. The patient will be fully compliant with their HEP. MET PT Assessment: Patient is discharged to an [facility]. Patient reports 70% improvement since SOC and believes they are ready to be discharged. Reports compliance with their HEP. Has improved bilateral shoulder ROM, LE and core strength and decreased pain since SOC. Still needs to continue to improve strength but will be able to achieve with their HEP. Still has constant numbness in bilateral LEs but has had this since 2017. Discussed beng able to perform exercises at the gym but starting with very low weights and avoiding stress on the lumbar spine. Patient tolerated all exercises well without increased pain. PT updated and reviewed the patient's HEP today and discussed importance of daily adherence to the HEP Plan: Discharged I hereby deem this POC medically necessary. Please sign below and fax back to the number below. Physician Signature: Date: documented in this encounterSt. Luke's [id number] History of Present illness Narrative* Sumeet De La Cruz MD - 08/28/2023 11:30 AM EST SPINE SURGERY FOLLOW UP This is an in-person visit. Staff note: Doing well postop, some pain at the top of the construct, expected, she is significantly better than preop and pleased with her course thus far, physical therapy, x-rays, follow-up in 6 weeks. This note was dictated with [id number] software. Please excuse grammatical errors, brevity, and errorsin syntax. Sumeet De La Cruz MD SERVICE DATE: 08/28/2023 SURGERY DATE: 07/11/23 SURGERY/PROCEDURE(S): 1. Exploration and revision of posterior spinal fusion T2-L3 2. Hardware removal posterior spinal hardware, T2-L3 3. Posterior spinal instrumentation, nonsegmental, T2-L3. 4. allograft and BMP for spinal arthrodesis 5. Neuro navigation for hardware planning and placement Seen for 6 week post operative appointment. Since surgery she has noticed continued pain between the scapula. Some pain over the right low back but no radiation into the legs. Using Robaxin for pain relief. Incision fully healed without any complications. Patient Entered Questionnaires Spine Questions 06/13/2023 07/25/2023 08/28/2023 Pain Location: Upper back/torso Other Lower back Pain Duration: 6 months - 1 year - - Pain over last 6 months: Every day or nearly every day in the past 6 months - - Symptoms from neck/cervical spine: Yes Yes Yes Employment Status: Unknown - - Involved in law suit/legal claim: No - - Neck Questionnaires 06/13/2023 07/25/2023 Benzel Modified LEONARD Score 17 (A lower score indicates increased pain and issues.) 18 (A lower scoreindicates increased pain and issues.) PROMIS Score Percentiles Physical Health 06/13/2023 07/25/2023 08/28/2023 Physical Function Percentile - 7 8 Sleep Percentile 27* 14 24* Fatigue Percentile - 10 14 Pain Interference Percentile - 1 12 PROMIS SOCIAL ROLE SCORE 05/27/2023 07/25/2023 08/28/2023 Social Role Satisfaction Percentile 14 16* 24* PROMIS Global Health Scale 05/27/2023 08/28/2023 Physical Health Percentile 2 10 Mental Health Percentile 3 9 Percentiles provide an indication of how the patient's score ranks in relation to the general population. Higher percentile rankings indicate better function/quality of life. 50th percentile is the average of the general population and indicates half of respondents had a worse score. Depression Screening: PHQ-9 06/13/2023 07/25/2023 08/28/2023 Score 14 16 27 PHQ-9 Self-harm Question 06/13/2023 07/25/2023 08/28/2023 Thoughts that you would be better off , or of hurting yourself in some way 2 2 3 PHQ-9 Self-Harm (Item 9) response options: 0 Not at all 1 Several days 2 More than half the days 3 Nearly every day PHQ-9 Levels: 0-4 No to mild depression 5-9 Mild depression 10-14 Moderate depression 15-19 Moderately severe depression 20-27 Severe depression PHYSICAL EXAM: BP 126/68 Pulse 63 Resp 18 Ht 172.7 cm (5' 8 ) Wt 92.5 kg (204 lb) LMP 05/20/2023 (Exact Date) SpO2 99% BMI 31.02 kg/m GENERAL APPEARANCE: Well nourished, well developed, and no apparent distress. NEURO PSYCH: Patient oriented to person, place, and time. Mood pleasant. Benign affect. MUSCULOSKELETAL VISUAL INSPECTION CERVICAL: WNL THORACIC: WNL LUMBAR: WNL MOTOR: 5/5 in all muscle groups. SENSORY: Normal sensory exam GAIT: Antalgic. REFLEXES: +2 to bilateral U/L extremities. LONG TRACT SIGNS: No Hoffmans. STRAIGHT LEG TEST: Ipsilateral: Negative. Contralateral: Negative. L'HERMITTES SIGN: Not tested. SPURLING'S TEST: Not tested. DATA REVIEW [facility] records independently reviewed ASSESSMENT/PLAN (M43.25) Fusion of spine of thoracolumbar region (primary encounter diagnosis) Seen for 6 week post operative appointment. She continues to do well throughout the recovery process. She has noticed improvements in the pain down her legs. She's continued to have pain in the upperback. Incision fully healed without any complications. Discussed normal recovery goals and expectations. Reviewed plan of slowly increasing activity and lifting restrictions. Referral placed for PT. Continue to use Robaxin for pain control. Sumeet De La Cruz MD SIGNATURE: Sumeet De La Cruz MD PATIENT NAME: Yaneth Dennis DATE: August 28, 2023 TIME: 11:31 AM PAGER: documented in this encounterMercer [facility]11-13-[facility]23 History of Present illness Narrative* Sumeet De La Cruz MD - 07/31/2023 1:02 PM EST SPINE SURGERY FOLLOW UP This is an in-person visit. Staff note: Patient is seen for 3-week postop visit, doing well, stands with good posture, leg pain and burningis improved to resolved. [place] were removed today without difficulty. Follow-up for her 6-week postoperative visit. All questions were answered to stated satisfaction. Sumeet De La Cruz MD SERVICE DATE: 07/31/2023 SURGERY DATE: 07/11/23 Yaneth Dennis is seen for postop follow uo She is doing well in the postoperative setting. Luis Armando BREEN. Denies CP SOB. Incisions healing well Patient Entered Questionnaires Spine Questions 06/13/2023 07/25/2023 Pain Location: Upper back/torso Other Pain Duration: 6 months - 1 year - Pain over last 6 months: Every day or nearly every day in the past 6 months - Symptoms from neck/cervical spine: Yes Yes Employment Status: Unknown - Involved in law suit/legal claim: No - Neck Questionnaires 06/13/2023 07/25/2023 Benzel Modified LEONARD Score 17 (A lower score indicates increased pain and issues.) 18 (A lower scoreindicates increased pain and issues.) PROMIS Score Percentiles Physical Health 05/27/2023 06/13/2023 07/25/2023 Physical Function Percentile 8 - 7 Sleep Percentile - 27* 14 Fatigue Percentile 14 - 10 Pain Interference Percentile 1 - 1 PROMIS SOCIAL ROLE SCORE 05/27/2023 07/25/2023 Social Role Satisfaction Percentile 14 16* PROMIS Global Health Scale 05/27/2023 Physical Health Percentile 2 Mental Health Percentile 3 Percentiles provide an indication of how the patient's score ranks in relation to the general population. Higher percentile rankings indicate better function/quality of life. 50th percentile is the average of the general population and indicates half of respondents had a worse score. Depression Screening: PHQ-9 05/27/2023 06/13/2023 07/25/2023 Score 9 14 16 PHQ-9 Self-harm Question 05/27/2023 06/13/2023 07/25/2023 Thoughts that you would be better off , or of hurting yourself in some way 1 2 2 PHQ-9 Self-Harm (Item 9) response options: 0 Not at all 1 Several days 2 More than half the days 3 Nearly every day PHQ-9 Levels: 0-4 No to mild depression 5-9 Mild depression 10-14 Moderate depression 15-19 Moderately severe depression 20-27 Severe depression PHYSICAL EXAM: BP 128/78 Pulse 95 Temp 36.6 C (97.8 F) Resp 16 Ht 172.7 cm (5' 8 ) Wt 91.2 kg (201 lb) LMP 05/20/2023 (Exact Date) SpO2 97% BMI 30.56 kg/m 5/5 BL Upper and lower extremity strenght SILT C5-S1 Incision CDI (leora removed) DATA REVIEW [facility] records independently reviewed ASSESSMENT/PLAN (Z98.1) S/P spinal fusion (primary encounter diagnosis) Yaneth Dennis is here for follow up. . 1. Imaging: Scoliosis X-Ray 2. Follow up: 3 weeks post op Imaging Ordered: Scoliosis Sumeet De La Cruz MD SIGNATURE: Sumeet De La Cruz MD PATIENT NAME: Yaneth Dennis DATE: July 31, 2023 TIME: 1:29 PM PAGER: documented in this encounterMercer [facility]11-10-2023 Miscellaneous Notes* Telephone Encounter - Rashad Reyes RN - 07/28/2023 10:50 AM EST Neuro SPINE CARE COORDINATION QUICK NOTE Returned call to patient. Leora were advised to be removed 12-14 days post op both at pre op education and via MyChart post op. They will be removed at visit on Tuesday 07/31 Discussed her concerns from [employer] message about incision. No red flags for infection. She states she is concerned about the hump. Advised to discuss with Dr De La Cruz at follow up appointment. * Telephone Encounter - Loretta Quintero - 07/28/2023 9:04 AM EST Patient is calling in to find out if she will be getting her leora removed on Monday Ph. [phone] documented in this encounterMercer [facility]11-02-2023 Hospital Discharge instructions Follow Up Care 07/20/2023 09:52:30 With:George LOWE, Clare Lilly, DEEPTI, URO Address: When: Unknown [facility] 10-30-2023 Hospital Discharge instructions Patient Education 07/17/2023 16:12:29 Hypokalemia Hypokalemia Hypokalemia means that the amount of potassium in the blood is lower than normal. Potassium is a mineral (electrolyte) that helps regulate the amount of fluid in the body. It also stimulates muscle tightening (contraction) and helps nerves work properly. Normally, most of the body's potassium is inside cells, and only a very small amount is in the blood. Because the amount in the blood is so small, minor changes to potassium levels in the blood can be life-threatening. What are the causes? This condition may be caused by: Antibiotic medicine. Diarrhea or vomiting. Taking too much of a medicine that helps you have a bowel movement (laxative)can cause diarrhea and lead to hypokalemia. Chronic kidney disease (CKD). Medicines that help the body get rid of excess fluid (diuretics). Eating disorders, such as anorexia or bulimia. Low magnesium levels in the body. Sweating a lot. What are the signs or symptoms? Symptoms of this condition include: Weakness. Constipation. Fatigue. Muscle cramps. Mental confusion. Skipped heartbeats or irregular heartbeat (palpitations). Tingling or numbness. How is this diagnosed? This condition is diagnosed with a blood test. How is this treated? This condition may be treated by: Taking potassium supplements. Adjusting the medicines that you take. Eating more foods that contain a lot of potassium. If your potassium level is very low, you may need to get potassium through an IV and be monitored in the hospital. Follow these instructions at home: Eating and drinking Eat a healthy diet. A healthy diet includes fresh fruits and vegetables, whole grains, healthy fats, and lean proteins. If told, eat more foods that contain a lot of potassium. These include: ?Nuts, such as peanuts and pistachios. ?Seeds, such as sunflower seeds and pumpkin seeds. ?Peas, lentils, and schultz beans. ?Whole grain and bran cereals and breads. ?Fresh fruits and vegetables, such as apricots, avocado, bananas, cantaloupe, kiwi, oranges, tomatoes, asparagus, and potatoes. ?Juices, such as orange, tomato, and prune. ?Lean meats, including fish. ?Milk and milk products, such as yogurt. General instructions Take bvwv-hqv-tmowhkk and prescription medicines only as told by your health care provider. This includes vitamins, natural food products, and supplements. Keep all follow-up visits. This is important. Contact a health care provider if: You have weakness that gets worse. You feel your heart pounding or racing. You vomit. You have diarrhea. You have diabetes and you have trouble keeping your blood sugar in your target range. Get help right away if: You have chest pain. You have shortness of breath. You have vomiting or diarrhea that lasts for more than 2 days. You faint. These symptoms may be an emergency. Get help right away. Call 911. Do not wait to see if the symptoms will go away. Do not drive yourself to the hospital. Summary Hypokalemia means that the amount of potassium in the blood is lower than normal. This condition is diagnosed with a blood test. Hypokalemia may be treated by taking potassium supplements, adjusting the medicines that you take, or eating more foods that are high in potassium. If your potassium level is very low, you may need to get potassium through an IV and be monitored in the hospital. This information is not intended to replace advice given to you by your health care provider. Make sure you discuss any questions you have with your health care provider. Document Revised: 05/19/2022 Document Reviewed: 05/19/2022 [employer] Patient Education 2022 [employer]. 07/17/2023 16:12:29 Generalized Anxiety Disorder, Adult Generalized Anxiety Disorder, Adult Generalized anxiety disorder (TAYLA) is a mental health condition. Unlike normal worries, anxiety related to TAYLA is not triggered by a specific event. These worries do not fade or get better with time.TAYLA interferes with relationships, work, and school. TAYLA symptoms can vary from mild to severe. People with severe TAYLA can have intense waves of anxietywith physical symptoms that are similar to panic attacks. What are the causes? The exact cause of TAYLA is not known, but the following are believed to have an impact: Differences in natural brain chemicals. Genes passed down from parents to children. Differences in the way threats are perceived. Development and stress during childhood. Personality. What increases the risk? The following factors may make you more likely to develop this condition: Being female. Having a family history of anxiety disorders. Being very shy. Experiencing very stressful life events, such as the of a loved one. Having a very stressful family environment. What are the signs or symptoms? People with TAYLA often worry excessively about many things in their lives, such as their health and family. Symptoms may also include: Mental and emotional symptoms: ?Worrying excessively about natural disasters. ?Fear of being late. ?Difficulty concentrating. ?Fears that others are judging your performance. Physical symptoms: ?Fatigue. ?Headaches, muscle tension, muscle twitches, trembling, or feeling shaky. ?Feeling like your heart is pounding or beating very fast. ?Feeling out of breath or like you cannot take a deep breath. ?Having trouble falling asleep or staying asleep, or experiencing restlessness. ?Sweating. ?Nausea, diarrhea, or irritable bowel syndrome (IBS). Behavioral symptoms: ?Experiencing erratic moods or irritability. ?Avoidance of new situations. ?Avoidance of people. ?Extreme difficulty making decisions. How is this diagnosed? This condition is diagnosed based on your symptoms and medical history. You will also have a physical exam. Your health care provider may perform tests to rule out other possible causes of your symptoms. To be diagnosed with TAYLA, a person must have anxiety that: Is out of his or her control. Affects several different aspects of his or her life, such as work and relationships. Causes distress that makes him or her unable to take part in normal activities. Includes at least three symptoms of TAYLA, such as restlessness, fatigue, trouble concentrating, irritability, muscle tension, or sleep problems. Before your health care provider can confirm a diagnosis of TAYLA, these symptoms must be present more days than they are not, and they must last for 6 months or longer. How is this treated? This condition may be treated with: Medicine. Antidepressant medicine is usually prescribed for long-term daily control. Anti-anxiety medicines may be added in severe cases, especially when panic attacks occur. Talk therapy (psychotherapy). Certain types of talk therapy can be helpful in treating TAYLA by providing support, education, and guidance. Options include: ?Cognitive behavioral therapy (CBT). People learn coping skills and self-calming techniques to easetheir physical symptoms. They learn to identify unrealistic thoughts and behaviors and to replace them with more appropriate thoughts and behaviors. ?Acceptance and commitment therapy (ACT). This treatment teaches people how to be mindful as a way to cope with unwanted thoughts and feelings. ?Biofeedback. This process trains you to manage your body's response (physiological response) through breathing techniques and relaxation methods. You will work with a therapist while machines are used to monitor your physical symptoms. Stress management techniques. These include yoga, meditation, and exercise. A mental health specialist can help determine which treatment is best for you. Some people see improvement with one type of therapy. However, other people require a combination of therapies. Follow these instructions at home: Lifestyle Maintain a consistent routine and schedule. Anticipate stressful situations. Create a plan and allow extra time to work with your plan. Practice stress management or self-calming techniques that you have learned from your therapist or your health care provider. Exercise regularly and spend time outdoors. Eat a healthy diet that includes plenty of vegetables, fruits, whole grains, low-fat dairy products, and lean protein. ?Do not eat a lot of foods that are high in fat, added sugar, or salt (sodium). ?Drink plenty of water. Avoid alcohol. Alcohol can increase anxiety. Avoid caffeine and certain ohoa-jma-esbnwqo cold medicines. These may make you feel worse. Ask yourpharmacist which medicines to avoid. General instructions Take jvnn-odf-odcwbci and prescription medicines only as told by your health care provider. Understand that you are likely to have setbacks. Accept this and be kind to yourself as you persistto take better care of yourself. Anticipate stressful situations. Create a plan and allow extra time to work with your plan. Recognize and accept your accomplishments, even if you dressage judge them as small. Spend time with people who care about you. Keep all follow-up visits. This is important. Where to find more information National [place] of Mental Health: www.nimh.nih.gov Substance Abuse and Mental Health Services: www.samhsa.gov Contact a health care provider if: Your symptoms do not get better. Your symptoms get worse. You have signs of depression, such as: ?A persistently sad or irritable mood. ?Loss of enjoyment in activities that used to bring you ana. ?Change in weight or eating. ?Changes in sleeping habits. Get help right away if: You have thoughts about hurting yourself or others. If you ever feel like you may hurt yourself or others, or have thoughts about taking your own life,get help right away. Go to your nearest emergency department or: Call your local emergency services (330 in the [place] Call a suicide crisis helpline, such as the National Suicide Prevention Lifeline at or 521 in the [place] This is open 24 hours a day in the [place] Text the Crisis Text Line at 021117 (in the [place] Summary Generalized anxiety disorder (TAYLA) is a mental health condition that involves worry that is not triggered by a specific event. People with TAYLA often worry excessively about many things in their lives, such as their health and family. TAYLA may cause symptoms such as restlessness, trouble concentrating, sleep problems, frequent sweating, nausea, diarrhea, headaches, and trembling or muscle twitching. A mental health specialist can help determine which treatment is best for you. Some people see improvement with one type of therapy. However, other people require a combination of therapies. This information is not intended to replace advice given to you by your health care provider. Make sure you discuss any questions you have with your health care provider. Document Revised: 03/30/2022 Document Reviewed: 12/26/2021 [employer] Patient Education 2022 [employer]. Follow Up Care 07/17/2023 13:37:03 With:Bianka BUCKLEYJOI Address: [address] [place], [place] [id number] Business (1) When:07/20/2023 15:59:38 [facility]10-30-2023 Evaluation + Plan noteExtracted from: Title:ED NoteAuthor:Max RAMOS, JansenDate:07/17/23 Anxiety (F41.9: Anxiety diso rder, unspecified) Chills (R68.83: Chills (without fever)) Hypokalemia (E87.6: Hypokalemia) Orders: escitalopram, 20 mg = 1 tab(s), Oral, Daily, # 30 tab(s), Refills(s) 0, Pharmacy: [facility]/pharmacy #[id number], 172.7, cm, 07/17/23 13:52:00 EDT, Height/Length Dosing, 95.5, kg, 07/17/23 13:52:00 EDT, Weight Dosing lorazepam, 1 mg = 1 tab(s), Oral, TID, X 3 day(s), # 9 tab(s), Refills(s) 0, Pharmacy: [facility]/pharmacy#[id number], 172.7, cm, 07/17/23 13:52:00 EDT, Height/Length Dosing, 95.5, kg, 07/17/23 13:52:00 EDT, Weight Dosing lorazepam, 1 mg = 1 tab(s), Tab, Oral, Once, Stop date 07/17/23 15:50:00 EDT, STAT, Start date 07/17/23 15:50:00 EDT, 07/17/23 15:50:00 EDT morphine, 4 mg = 2 mL, Injection, IV Push, Once, Stop date 07/17/23 13:57:00 EDT, STAT, Start date 07/17/23 13:57:00 EDT, 07/17/23 13:57:00 EDT ondansetron, 4 mg = 2 mL, Injection, IV Push, Once, Stop date 07/17/23 13:57:00 EDT, STAT, Start date 07/17/23 13:57:00 EDT, 07/17/23 13:57:00 EDT potassium bicarbonate, 50 mEq = 2 tab(s), Tab-Eff, Oral, Once, Stop date 07/17/23 15:38:00 EDT, STAT, Start date 07/17/23 15:38:00 EDT, 07/17/23 15:38:00 EDT Sodium Chloride 0.9% intravenous solution 1,000 mL, 1,000 mL, IV, Bolus, STAT, Start date 07/17/23 13:57:00 EDT, Total volume (mL): 1,000, 95.5 kg, 2.14, m2 Automated Diff Basic Metabolic Panel CBC w/ Auto Diff eGFR Extra Blue Tube Extra SST Tube UA With Cult Reflex Future Appointments Appointment Date:07/20/2023 08:30:00 AM Scheduled Provider:George LOWE, Clare Lilly Location:[facility] Appointment Type:URO New Patient Future Scheduled Tests Radiology* CT Abdomen/Pelvis w/ Contrast 06/20/23 [facility]10-23-2023 Miscellaneous Notes* Telephone Encounter - Camelia Salazar LSW - 07/10/2023 10:05 AM EDT CARE CONTINUUM ADVISOR ASSESSMENT PRIMARY CARE PHYSICIAN: Bianka Woods CNP, MD OR Surgery Date: 07/11/23 Health Insurance: [employer] Financial Resources: pt did not specify Primary Contact: Extended Emergency Contact Information Primary Emergency [place]: [place] [address] [facility] Mobile Relation: Spouse Secondary Emergency Contact: Joshua Hines [facility] Mobile Relation: Mother Other Important Patient Contacts: None 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 Yes, requested copies for chart Does Patient Have Concerns About Advance Directives? No Education Provided: No SOCIAL: Living Arrangement: Home Lives With: self; family Stairs: One story home Do you have any concerns with food and/or affording food?: No Do you have reliable transportation to and from surgery/appointments?: Yes Medication Adherence: Do you have any concerns with your prescription medication?: No Who do you use for pharmacy?: [facility] d/c Pre-Hospital Baseline Mental Status: Alert & Oriented Informant: Self What is your current functional status?: Perform ADLs independently Equipment: Do you currently use any equipment at home for your medical condition or to help you get around? None Active Services/Needs: None Falls: none reported Do you have a community relations officer contact through your insurance or AAA?: No Has the Patient Been in a Retirement Facility in the Past 30 days? No FREEDOM OF CHOICE: Level of Care Discussed: Home Care Financial Disclosure Provided: No Financial Disclaimer Provided: No Provider List: Home Care Provider list within the patient's requested geographic area shared with the patient/family: Yes - Within [place] [id number] [facility] [place] Provider Choices Collected Home Health: no preference Interventions: N/A SIGNATURE: JO Anton PATIENT NAME: Yaneth Dennis DATE: July 10, 2023 TIME: 10:05 AM PAGER/CONTACT #: documented in this encounterMercer County [facility]10-09-2023 Miscellaneous Notes* Telephone Encounter - Rashad Reyes RN - 06/26/2023 2:58 PM EDT Neuro SPINE CARE COORDINATION QUICK NOTE Responded to patient in My Chart message. * Telephone Encounter - Concha Mcbride - 06/26/2023 1:54 PM EDT Pt called; states he surgery was denied; please advise; ph: [phone] Type Date User Summary Attachment Auth/Vivaty 06/21/2023 8:56 AM Lakeisha Ann - - Note: RCM P2P NOTIFICATIONS Second attempt: Dr. Sumeet Shah The care team above has been notified via e-mail of the denial and options for peer to peer and appeal. . Type Date User Summary Attachment Auth/Vivaty 06/19/2023 4:10 PM Lakeisha Ann - - Note: RCM P2P NOTIFICATIONS First attempt: Dr. Sumeet Shah The care team above has been notified via e-mail of the denial and options for peer to peer and appeal. . Type Date User Summary Attachment Auth/Vivaty 06/19/2023 3:06 PM Elías Purvis - - Note: PAVE UCB DOS: 07/11/2023 Admission type: EL TCI Insurance name: [facility]: [employer] [facility] Main labor service representative, web used; [facility] [employer] [facility] Phone number called: NA Time of verification: 1:02 PM Case reference number: [id number] Was initial clinical information received?Y/N: Yes When? NA How many pages were received? NA Procedure(s) denied: [id number] Procedure(s) approved: [id number] Diagnosis code(s): M48.02 Z98.1 M48.062 Z01.818 May I know when case was denied? 06/18/2023 Rep advised reconsideration is available: N/A What is the reconsideration timeframe? N/A How can it be done? N/A Who can complete the reconsideration? N/A Is the peer to peer available? Yes Is the peer to peer for consultation only? No May I have the P2P ph# along with prompts? [phone] What is the time frame for the peer to peer? 5 calendar days Would the peer to peer timeframe cover all services or is it specific for a type of service (surgery - office visit - injections)? All services Does the P2P have to be scheduled or is it done right away? Scheduled Is it required for the provider to schedule the P2P or can this be done by his medical lead? MD Who can complete the P2P (Doctor, PA, WELL LOGGING MUD ANALYSIS CAPTAIN)? MD Would the peer to peer be available if services have been rendered? Yes Is the appeal available? Yes Can I have the appeal ph# along with prompts (information only or can do verbal appeal)? No Can I have the appeal fax#? [phone] Can I have the appeal mailing address? N/A Attention to? [employer] Appeals Department Is it necessary to include any form? Yes: Provider form: [email or web address].[employer]/[email or web address]-[email or web address]-ehuu/ Member form: [email or web address].[email or web address]/documents/znjnpdod-dizmbfo-[email or web address]-qhmvwa-ez-[email or web address]- nzukae-wqib-hj-[email or web address]/ What is the appeal time frame? 60 calendar days Denial reason: You have asked for back surgery. Your request for connecting your spine bones together is approved. Your medical records were carefully reviewed. This part of the surgery has another step. This other step is for looking around the area of your spine where you had that prior surgery. Your doctor asked to do this separately. This cannot be approved. Your records do not show why that step needs to be separate. Please talk with your doctor about treatment options. A copy of this letter went to your doctor. UCB DENIAL SPECIALISTS HAVE BEEN NOTIFIED documented in this encounterMercer [facility]10-[facility]23 Evaluation + Plan note Future Scheduled Tests Radiology* CT Abdomen/Pelvis w/ Contrast 06/20/23 [facility] 10-02-2023 Miscellaneous Notes* Telephone Encounter - Tamiko Bar LPN - 06/19/2023 1:46 PM EDT I called patient and advised of below. She verbalized understanding of all instructions. Tamiko Bar LPN June 19, 2023 1:47 PM * Telephone Encounter - Bing Dash APRN.CNP - 06/19/2023 1:19 PM EDT Please contact and advise that due to ordering error, not all the labs she needed for surgery were completed. I placed a new order for labs. Please have her to go any [facility] lab to complete [place]. Also her urine culture appears containment. Please educate on proper collection. A repeat urine culture was also ordered. Thank you Bing Dash APRN.TIAGO documented in this encounterMercer County Community Hospital09-13-2023 History of Present illness Narrative* Katlin Aj PSYD - 05/31/2023 1:01 PM EDT Behavioral Medicine Group Session TREK for Surgical Success/Empowered Relief for Surgery Patient Name: Yaneth Dennis CC#: [id number] Date of service: May 31, 2023 I have communicated my name and active licensure. The patient's identity and physical location wereverified at the time of this visit. Either the patient or their legal sales representative printing has been informed of the risks and benefits of -- and alternatives to -- treatment through virtual visit and consents to proceed with the session remotely. Patient location: [address] [place] [address] [place] [address] Subjective: Patient participated in a 2 hour cognitive and behavioral group focused on coping with pain in the perioperative period for spine surgery. The goal of the following treatment is to improve the patient's health and well-being via cognitive, behavioral, social and/or psychophysiological procedures designed to ameliorate pain related problems. Group members received an orientation to the group and discussed their feelings related to their upcoming or recently had spine surgery. Group materials were distributed including an assessment form to evaluate Pain Catastrophizing and to target negative thought patterns related to pain. Additionalmaterials included a personalized relapse prevention plan and goal setting sheet. Group session included psychoeducation related to the pain and stress response, experiential practice/learning of relaxation technique of deep breathing, orientation to the cognitive and behavioral model of pain and skill building (reframing negative thoughts, de-escalating negative emotions and identifying soothing actions). All of these skills were connected to the experience of spine surgery Objective: Affect is appropriate. PCS score of 37 suggests very high levels of pain catastrophizing. The patient paid good attention during the group and did verbalize understanding of the material presented. Medications: Current Outpatient Medications Medication Sig Norethin Caden-Eth Estrad-FE (10/07, ,) 1 mg-20 mcg (21)/75 mg (7) per tablet TAKE 1 TABLET BY MOUTH EVERY DAY meloxicam (MOBIC) 15 mg tablet Take 1 tablet by mouth every afternoon. escitalopram oxalate (LEXAPRO) 20 mg tablet Take 1 tablet by mouth every afternoon. diclofenac, EC, (VOLTAREN) 75 mg EC tablet Take 1 tablet by mouth every 12 hours. cyclobenzaprine (FLEXERIL) 10 mg tablet Take 10 mg by mouth three times daily. hydrOXYzine HCl (ATARAX) 25 mg tablet TAKE 1 TABLET BY MOUTH 4 TIMES A DAY NEEDED FOR ANXIETY ibuprofen (MOTRIN) 800 mg tablet Take 800 mg by mouth every 8 hours as needed. FOR PAIN. No current facility-administered medications for this visit. 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 Anatomic Lumbar Variant: None. L4-5 is considered the level of the iliac crest and assume there are 5 lumbar-type vertebrae. Checkerer Hand: PSCB Transcribe Date/Time: May 24 2023 10:49A Dictated by : SONI THOMAS MD This examination was interpreted and the report reviewed and electronically signed by: SONI THOMAS MD on May 24 2023 10:57AM [facility] [id number] History of Present illness Narrative* Karina Uribe RT(Dom) - 05/24/2023 10:40 AM EDT Radiology Service Progress Note PATIENT NAME: Yaneth Dennis DATE OF SERVICE: May 24, 2023 TIME: 10:15 AM PATIENT IDENTITY VERIFICATION COMPLETED USING TWO (2) IDENTIFIERS: Name and Date of confirmedby patient verbally and Name and Date of confirmed by identification band. FALL SCREENING: Has the patient had 2 falls in the last year or 1 fall with injury or currently using an Ambulatory Assistive Device (Walker, Cane, Wheelchair, Crutches, etc.)? No PATIENT GENDER DATA: Female. status: : No status: NO. PATIENT RELEVANT IMPLANT DATA REVIEWED: Not Applicable RADIOLOGY DEPARTMENT: CT; Exam(s) Completed: Spine PERIPHERAL IV DATA: Not applicable SIGNED BY: RT Madhav(Dom) May 24, 2023 10:15 AM documented in this encounterMercer County Community Hospital09-06-2023 History of Present illness Narrative* Esme Simpson RT(R) - 05/24/2023 9:20 AM EDT Radiology Service Progress Note PATIENT NAME: Yaneth Dennis DATE OF SERVICE: May 24, 2023 TIME: 9:35 AM PATIENT IDENTITY VERIFICATION COMPLETED USING TWO (2) IDENTIFIERS: Name and Date of confirmedby patient verbally and Name and Date of confirmed by identification band. FALL SCREENING: Has the patient had 2 falls in the last year or 1 fall with injury or currently using an Ambulatory Assistive Device (Walker, Cane, Wheelchair, Crutches, etc.)? No PATIENT GENDER DATA: Female. status: : No status: NO. PATIENT RELEVANT IMPLANT DATA REVIEWED: Yes RADIOLOGY DEPARTMENT: MR; Exam(s) Completed: Spine: Lumbar spine PERIPHERAL IV DATA: Not applicable SIGNED BY: RT Jame(Dom)(MR) May 24, 2023 9:35 AM documented in this encounterMercer County Community Hospital09-01-2023 Miscellaneous Notes* Telephone Encounter - Concha Mcbride - 05/19/2023 3:43 PM EDT [place] [id number] MRI Thoracic Spine [place] [id number] MRI Cervical Spine WO IVCON +04/24/23 OV Notes to: Appeals Confirmation received. documented in this encounterMercer County Community Hospital08-21-2023 Miscellaneous Notes* Telephone Encounter - Natalie Mora RN - 05/08/2023 12:58 PM EDT Neuro SPINE CARE COORDINATION QUICK NOTE Call to the pt at Dr. De La Cruz request - OR has been rescheduled for 07-11-23 Case message has been sent documented in this encounterMercer County Community Hospital08-17-2023 Miscellaneous Notes* Telephone Encounter - Natalie Mora RN - 05/04/2023 10:00 AM EDT Neuro SPINE CARE COORDINATION QUICK NOTE Noted * Telephone Encounter - Concha Mcbride - 05/04/2023 8:59 AM EDT Pt returned call; says she has to drive 3 hours to the location of her last surgery to get the necessary operative report and records. Pt will get it next week and call us back to get fax information from us. * Telephone Encounter - Natalie Mora RN - 05/04/2023 8:41 AM EDT Neuro SPINE CARE COORDINATION QUICK NOTE Call to the pt and LM - we are still awaiting the past operative report and records to be sent to our office. documented in this encounterMercer County Community Hospital08-10-2023 Miscellaneous Notes* Telephone Encounter - Natalie Mora RN - 04/27/2023 1:55 PM EDT Neuro SPINE CARE COORDINATION SURGERY SCHEDULING Patient accepts surgery date of 06-29-[address] De La Cruz. Planned procedure is Revision - extension of fusion to T2. PACC will be [place] 06-16-23 . [employer] : completed Medications reviewed : Yes}. Meds to be stopped prior to surgery : NSAIDS. Additional pre op clearances needed : none. Any implanted devices : No. Transplant History No Na. Patient will get optimization lab work : Blood Management . Questions answered. Patient verbalizes understanding via teach back. Additional comments : home with boyfriend and parents. Preoperative Needs Assessment Do you live alone or with someone that can help you? Lives with caregiver- family Will you have assistance available at home after your surgery to help with physical activities sucha toileting or dressing? Never How many steps do you need to climb to get into your home? 1-10 Once in your home, how many steps do you need to climb to access your bedroom or bathroom? 0 Do you use a mobility aid for walking/getting around? (note, if more than one type of aid is used, select the one that is used more frequently) None Anticipated LOS > 5 days: No Significant home social issues or Current history or past history of substance abuse: No Wheelchair baseline, Homebound baseline, Significant gait instability, or History of significant falls: No Thora/lumbar fusion any level planned or 2+ level posterior cervical fusion planned: Yes Myelopathic or Spine tumor: No Probability of non-home discharge disposition : Low [0] Natalie Mora RN documented in this encounterMercer County Community Hospital08-09-2023 Miscellaneous Notes* Telephone Encounter - Natalie Mora RN - 04/26/2023 3:39 PM EDT Neuro SPINE CARE COORDINATION QUICK NOTE Call to the pt to inquire surgical instrumentation OR completed [facility] - she has asked for records to be sent for review. documented in this encounterMercer County Community Hospital06-29-2023 History of Present illness Narrative* Phillip Shah PA-C - 03/16/2023 7:10 AM EDT SPINE SURGICAL TRIAGE: LBP, numbness in the legs, trouble walking, weakness Has tried: muscle relaxant Previous surgery 2018 at [place] - scoliosis correction CT report states T3 screw placed into the spinal canal and lucency surrounding screws Order placed for scoli X-Ray. Will have her scheduled with deformity surgeon. * Lisandro Dey - 03/10/2023 1:52 PM EDT Patient name: Yaneth Dennis Are you being referred by a [facility] for [facility] Provider or [facility] Management Provider at [facility]? No If answer is YES please schedule directly with surgeon, triage does not need to be completed. Is this a self-referral No If not, who is the Referring Provider Christopher Hutson Is this a 2nd opinion? No Were you offered surgery? No MRI/CT/myelogram within 12 months? No If NO , please refer to medical spine or PCP to complete above imaging, triage does not need to be completed If YES, please ask for the name/address of the facility where the MRI/CT/myelogram was completed: [facility] Address: [address] [place], [place] [address], [place] [address] MRI/CT/myelogram viewable in Epic: No If not, please provide [phone] to fax in imaging reports for review. Also, please inform patient to hand carry imaging disc to appointment. XR (spine) within 12 months: No If YES, please ask for the name/address of the facility where the XR was completed: Dr. Byrne's patients: Have you had previous EMG/Nerve Conduction Study, Ultrasound, or MRI for thesesame symptoms? If YES, please ask for the name/address of the facility where they were completed: Requested provider (First and Last name): [facility] Are you interested in a virtual visit if offered? No 1. Where are you having symptoms related to this visit? LBP Numbness in legs Back pain Yes Leg pain No Arm pain No Neck pain No 2. Are you having any of the following symptoms: Difficulty walking Yes Numbness Yes Weakness Yes Trouble using your hands? No 3. Have you had any injections or physical therapy in the last 12 months? No If YES then please ask for the name/address of the facility where the injections and/or physical therapy was completed No Have you tried any other kinds of non-surgical treatments in the last 12 months? (For example: NSAIDS, muscle relaxants, analgesics, oral steroids, Chiropractor, Acupuncture): muscle relaxants, as needed 4. Are you currently taking daily prescribed narcotic medications for your current symptoms (For example Oxycodone, Hydrocodone, Tramadol, Morphine, Other)? No 5. Have you had previous spinal surgery for this same symptoms? Yes If YES please ask for the name of facility/address of where the surgery was completed: [facility] Address: [address] [place] [address] Additional Comments [phone] (Home Phone) documented in this encounterMercer County Community Hospital10-19-2022 Hospital Discharge instructions Follow Up Care 07/06/2022 17:31:04 With:Britany HINES DO, FAM Address: [address] [address]- When:Within 6 Month(s) [facility] 06-15-2022 Evaluation + Plan note Future Scheduled Tests Radiology* XR Spine Cervical 4 or 5 Views 03/02/22 * XR Spine Thoracic 3 Views 03/02/22 [facility] Consult note* Clinical Note Date No Information [facility] Work Phone: Discharge summary* Clinical Note Date No Information [facility] Work Phone: Evaluation + Plan note Future Appointments Appointment Date:05/24/2022 03:00:00 PM Scheduled Provider:Britany HINES DO Location:[facility] Appointment Type: Open [facility] Evaluation + Plan note Future Appointments Appointment Date:10/06/2022 04:20:00 PM Scheduled Provider:Britany HINES DO Location:[facility] Appointment Type: Open [facility] Evaluation + Plan note Future Appointments Appointment Date:04/06/2023 04:20:00 PM Scheduled Provider:Britany HINES DO Location:[facility] Appointment Type: Open Future Scheduled Tests Laboratory* Insulin Level Total 10/06/22 * CBC w/ Auto Diff 10/06/22 * Comprehensive Metabolic Panel 10/06/22 * Lipid Panel 10/06/22 * Thyroid Stimulating Hormone 10/06/22 [facility] Evaluation + Plan note Future Appointments Appointment Date:04/06/2023 04:20:00 PM Scheduled Provider:Britany HINES DO Location:[facility] Appointment Type: Open Diagnostic Tests Pending * [facility] Appointment Date:02/28/2023 03:20:00 PM Scheduled Provider:Bianka WOODS CNP Location:[facility] Appointment Type: Open [facility] Evaluation + Plan note Future Appointments Appointment Date:11/16/2023 02:40:00 PM Scheduled Provider:Bianka WOODS CNP Location:[facility] Appointment Type: Open Future Scheduled Tests Radiology* CT Abdomen/Pelvis w/ Contrast 06/20/23 [facility] Evaluation + Plan note Future Appointments Appointment Date:01/04/2024 12:00:00 PM Scheduled Provider:Jacey Colvin Location:[facility] Appointment Type:BH Therapy 60 Appointment Date:01/09/2024 12:00:00 PM Scheduled Provider:Jacey Colvin Location:[facility] Appointment Type:BH Therapy 60 Appointment Date:01/16/2024 02:00:00 PM Scheduled Provider:Jacey Colvin Location:[facility] Appointment Type:BH Therapy 60 Appointment Date:01/30/2024 03:00:00 PM Scheduled Provider:Jacey Colvin Location:[facility] Appointment Type:BH Therapy 60 Appointment Date:03/05/2024 03:00:00 PM Scheduled Provider:Jacey Colvin Location:[facility] Appointment Type:BH Therapy 60 Appointment Date:03/12/2024 03:00:00 PM Scheduled Provider:Jacey Colvin Location:[facility] Appointment Type:BH Therapy 60 Future Scheduled Tests Radiology* CT Abdomen/Pelvis w/ Contrast 06/20/23 [facility] evaluation + Plan note Future Appointments Appointment Date:01/09/2024 12:00:00 PM Scheduled Provider:Jacey Colvin Location:[facility] Appointment Type:BH Therapy 60 Appointment Date:01/16/2024 02:00:00 PM Scheduled Provider:Jacey Colvin Location:[facility] Appointment Type:BH Therapy 60 Appointment Date:01/24/2024 02:40:00 PM Scheduled Provider:Bianka WOODS CNP Location:[facility] Appointment Type:FM Open Appointment Date:01/30/2024 03:00:00 PM Scheduled Provider:Jacey Colvin Location:[facility] Appointment Type:BH Therapy 60 Appointment Date:03/05/2024 03:00:00 PM Scheduled Provider:Jacey Colvin Location:[facility] Appointment Type:BH Therapy 60 Appointment Date:03/12/2024 03:00:00 PM Scheduled Provider:Jacey Colvin Location:[facility] Appointment Type:BH Therapy 60 Future Scheduled Tests Radiology* CT Abdomen/Pelvis w/ Contrast 06/20/23 [facility] evaluation + Plan note Future Appointments Appointment Date:01/24/2024 02:40:00 PM Scheduled Provider:Bianka WOODS CNP Location:[facility] Appointment Type:FM Open Appointment Date:01/30/2024 03:00:00 PM Scheduled Provider:Jacey Colvin Location:[facility] Appointment Type:BH Therapy 60 Appointment Date:03/05/2024 03:00:00 PM Scheduled Provider:Jacey Colvin Location:[facility] Appointment Type:BH Therapy 60 Appointment Date:03/12/2024 03:00:00 PM Scheduled Provider:Jacey Colvin Location:[facility] Appointment Type:BH Therapy 60 Future Scheduled Tests Radiology* CT Abdomen/Pelvis w/ Contrast 06/20/23 [facility] evaluation + Plan note Future Appointments Appointment Date:03/05/2024 03:00:00 PM Scheduled Provider:Jacey Colvin Location:[facility] Appointment Type:BH Therapy 60 Appointment Date:03/11/2024 02:20:00 PM Scheduled Provider:Bianka WOODS CNP Location:[facility] Appointment Type:FM Open Appointment Date:03/12/2024 03:00:00 PM Scheduled Provider:Jacey Colvin Location:[facility] Appointment Type: Therapy 60 Future Scheduled Tests Radiology* CT Abdomen/Pelvis w/ Contrast 06/20/23 [facility] Evaluation + Plan note Future Appointments Appointment Date:03/14/2024 06:30:00 PM Scheduled Provider: [facility] Type:US Abdominal/Pelvis (FT) Appointment Date:03/27/2024 02:00:00 PM Scheduled Provider:Jacey Colvin Location:[facility] Appointment Type: Video Visit Therapy 60 Appointment Date:04/16/2024 03:00:00 PM Scheduled Provider:Jacey Colvin Location:[facility] Appointment Type: Therapy 60 Future Scheduled Tests Radiology* CT Abdomen/Pelvis w/ Contrast 06/20/23 * US Pelvis Non-OB Complete 03/14/24 * US Transvaginal Non-OB 03/14/24 [facility] Evaluation + Plan note Future Appointments Appointment Date:03/27/2024 02:00:00 PM Scheduled Provider:Jacey Colvin Location:[facility] Appointment Type: Video Visit Therapy 60 Appointment Date:04/16/2024 03:00:00 PM Scheduled Provider:Jacey Colvin Location:[facility] Appointment Type: Therapy 60 Future Scheduled Tests Radiology* CT Abdomen/Pelvis w/ Contrast [facility] Appointment Date:08/14/2024 11:00:00 AM Scheduled Provider:MIRI MAX Location:[facility] Appointment Type: New Patient - Adult [facility] evaluation + Plan note Future Appointments Appointment Date:09/03/2024 01:00:00 PM Scheduled Provider:Jacey Colvin Location:[facility] Appointment Type: Video Visit Therapy 60 Future Scheduled Tests Radiology* XR Hip 2-3 Views Right 08/29/24 * XR Hip 2-3 Views Left 08/29/24 [facility] Evaluation + Plan note Future Appointments Appointment Date:09/03/2024 01:00:00 PM Scheduled Provider:Jacey Colvin Location:[facility] Appointment Type: Video Visit Therapy 60 [facility] Evaluation + Plan note Future Appointments Appointment Date:10/02/2024 03:00:00 PM Scheduled Provider:Jacey Colvin Location:[facility] Appointment Type: Therapy 60 Appointment Date:10/14/2024 12:30:00 PM Scheduled Provider: [facility] Appointment Type:EMG Bilateral Lower Extremity [facility] Evaluation + Plan note Future Appointments Appointment Date:10/14/2024 12:30:00 PM Scheduled [facility]G Bilateral Lower Extremity [facility] Future Appointments Appointment Date:04/21/2025 08:30:00 AM Scheduled Provider: Location:.[place]ICAL [place] Appointment Type:PT FCE (FT) Future Scheduled Tests Radiology* MRI Spine Cervical w/o Contrast 11/27/24 * MRI Spine Lumbar w/o Contrast 11/27/24 * MRI Spine Thoracic w/o Contrast 11/27/24 [facility] Evaluation note* Diagnosis Juvenile idiopathic scoliosis, unspecified spinal region- [facility] Juvenile idiopathic scoliosis, unspecified spinal region [facility] Diagnosis Cervical spinal stenosis- Primary Spinal stenosis in cervical region S/P spinal fusion Arthrodesis status Spinal stenosis of lumbar region with neurogenic claudication Spinal stenosis, lumbar region, with neurogenic claudication Pre-op testing Preoperative examination, unspecified Cervical spinal stenosis Spinal stenosis in cervical region S/P spinal fusion Arthrodesis status Spinal stenosis of lumbar region with neurogenic claudication Spinal stenosis, lumbar region, with neurogenic claudication Pre-op testing Preoperative examination, unspecified [facility] Diagnosis S/P spinal fusion- Primary Arthrodesis status Anemia following surgery Anemia, unspecified Cervical spinal stenosis Spinal stenosis in cervical region S/P spinal fusion Arthrodesis status Spinal stenosis of lumbar region with neurogenic claudication Spinal stenosis, lumbar region, with neurogenic claudication Pre-op testing Preoperative examination, unspecified [facility]* Diagnosis Arthrodesis status Cervical spinal stenosis Spinal stenosis in cervical region S/P spinal fusion Arthrodesis status Spinal stenosis of lumbar region with neurogenic claudication Spinal stenosis, lumbar region, with neurogenic claudication Pre-op testing Preoperative examination, unspecified [facility] Diagnosis Spinal stenosis in cervical region- Primary Cervical spinal stenosis Spinal stenosis in cervical region S/P spinal fusion Arthrodesis status Spinal stenosis of lumbar region with neurogenic claudication Spinal stenosis, lumbar region, with neurogenic claudication Pre-op testing Preoperative examination, unspecified [facility] Diagnosis Preop examination- Primary Preoperative examination, unspecified Cervical spinal stenosis Spinal stenosis in cervical region S/P spinal fusion Arthrodesis status Spinal stenosis of lumbar region with neurogenic claudication Spinal stenosis, lumbar region, with neurogenic claudication Pre-op testing Preoperative examination, unspecified [facility]* Diagnosis S/P spinal fusion- Primary Arthrodesis status [facility] Diagnosis Cervical spinal stenosis Spinal stenosis in cervical region S/P spinal fusion Arthrodesis status Spinal stenosis of lumbar region with neurogenic claudication Spinal stenosis, lumbar region, with neurogenic claudication Pre-op testing Preoperative examination, unspecified [facility] Diagnosis 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 Diagnosis DDD (degenerative disc disease), thoracolumbar- Primary Degeneration of thoracic or thoracolumbar intervertebral disc History of spinal fusion [facility] Diagnosis Adolescent idiopathic scoliosis of thoracolumbar region- Primary Scoliosis (and kyphoscoliosis), idiopathic Chronic bilateral low back pain without sciatica documented in this encounter [facility] note* Diagnosis Cervical spinal stenosis Spinal stenosis in cervical region S/P spinal fusion Arthrodesis status Spinal stenosis of lumbar region with neurogenic claudication Spinal stenosis, lumbar region, with neurogenic claudication Pre-op testing Preoperative examination, unspecified Postoperative pain Other acute postoperative pain Spinal stenosis of lumbar region, unspecified whether neurogenic claudication present Pre-op evaluation- Primary Preoperative examination, unspecified Pelvic pain Depressive disorder Depressive disorder, not elsewhere classified Other specified anxiety disorders Class 1 obesity without serious comorbidity with body mass index (BMI) of 31.0 to 31.9 in adult, unspecified obesity type documented in this encounter [facility] note* Diagnosis Thoracic myelopathy- Primary Spondylosis with myelopathy, thoracic region Cervical spinal stenosis Spinal stenosis in cervical region S/P spinal fusion Arthrodesis status Spinal stenosis of lumbar region with neurogenic claudication Spinal stenosis, lumbar region, with neurogenic claudication Pre-op testing Preoperative examination, unspecified Postoperative pain Other acute postoperative pain Postoperative pain Other acute postoperative pain Moderate major depression (HCC) Major depressive disorder, single episode, moderate Painful orthopaedic hardware Other complications due to other internal orthopedic device, implant, and graft Fusion of spine, thoracolumbar region Acute postoperative anemia due to expected blood loss Urinary retention Retention of urine, unspecified UTI (urinary tract infection) Urinary tract infection, site not specified Pre-op evaluation- Primary Preoperative examination, unspecified Pelvic pain Depressive disorder Depressive disorder, not elsewhere classified Other specified anxiety disorders Class 1 obesity without serious comorbidity with body mass index (BMI) of 31.0 to 31.9 in adult, unspecified obesity type Arthrodesis status documented in this encounter [facility] note* Diagnosis Thoracic myelopathy- Primary Spondylosis with myelopathy, thoracic region Cervical spinal stenosis Spinal stenosis in cervical region S/P spinal fusion Arthrodesis status Spinal stenosis of lumbar region with neurogenic claudication Spinal stenosis, lumbar region, with neurogenic claudication Pre-op testing Preoperative examination, unspecified Postoperative pain Other acute postoperative pain Postoperative pain Other acute postoperative pain Moderate major depression (HCC) Major depressive disorder, single episode, moderate Painful orthopaedic hardware Other complications due to other internal orthopedic device, implant, and graft Fusion of spine, thoracolumbar region Acute postoperative anemia due to expected blood loss Urinary retention Retention of urine, unspecified UTI (urinary tract infection) Urinary tract infection, site not specified Pre-op evaluation- Primary Preoperative examination, unspecified Pelvic pain Depressive disorder Depressive disorder, not elsewhere classified Other specified anxiety disorders Class 1 obesity without serious comorbidity with body mass index (BMI) of 31.0 to 31.9 in adult, unspecified obesity type Arthrodesis status [facility]* Diagnosis Osteoarthritis of lumbar spine, unspecified spinal osteoarthritis complication status- Primary documented in this encounter [facility]* Diagnosis Thoracic myelopathy- Primary Spondylosis with myelopathy, thoracic region Cervical spinal stenosis Spinal stenosis in cervical region S/P spinal fusion Arthrodesis status Spinal stenosis of lumbar region with neurogenic claudication Spinal stenosis, lumbar region, with neurogenic claudication Pre-op testing Preoperative examination, unspecified Postoperative pain Other acute postoperative pain Postoperative pain Other acute postoperative pain Moderate major depression (HCC) Major depressive disorder, single episode, moderate Painful orthopaedic hardware Other complications due to other internal orthopedic device, implant, and graft Fusion of spine, thoracolumbar region Acute postoperative anemia due to expected blood loss Urinary retention Retention of urine, unspecified UTI (urinary tract infection) Urinary tract infection, site not specified Pre-op evaluation- Primary Preoperative examination, unspecified Pelvic pain Depressive disorder Depressive disorder, not elsewhere classified Other specified anxiety disorders Class 1 obesity without serious comorbidity with body mass index (BMI) of 31.0 to 31.9 in adult, unspecified obesity type Arthrodesis status- Primary Spinal stenosis of cervical region Spinal stenosis in cervical region Arthrodesis status Arthrodesis status [facility]* Diagnosis Dysmenorrhea- Primary Breast lump in female Lump or mass in breast Pelvic pain in female Unspecified symptom associated with female genital organs Menorrhagia with irregular cycle documented in this encounter [facility] note* Diagnosis PCOS (polycystic ovarian syndrome)- Primary Polycystic ovaries Pelvic congestion syndrome Follow-up exam Unspecified follow-up examination documented in this encounter [facility] HealthcareHistory and physical note* Clinical Note Date No Information [facility] Work Phone: History of Past illness Narrative* Condition Effective Dates (start - stop) O utcome No Information [facility] Work Phone: History of Present illness Narrative* Encounter Date Complaint History Of Prese nt Illness No Information [facility] Work Phone: Hospital course Narrative No data available for this section [facility] Discharge instructions No data available for this section [facility] Instructions* Date Instruction Additional Infor mation No Information [facility] Work Phone: Progress note No data available for this section [facility] Progress note* Clinical Note Date No Information [facility] Work Phone: Reason for referral (narrative)* Diagnostic Procedure Only (Routine) - Pending ReviewSpecialtyDiagnoses / ProceduresReferred By ContactReferred To ContactXR IMAGING Diagnoses Juvenile idiopathic scoliosis, unspecified spinal region Procedures XR SCOLIOSIS PA STAND/LAT 2V RADEX ENTIR THRC LMBR CRV SAC SPI W/SKULL 2/3 Phillip Shah PA-C [address] [place] [address] Xr Imaging Referral IDStatusReasonStart DateExpiration DateVisits RequestedVisits [id number] Review Auto-Generated Referral / [facility] for referral (narrative)* Diagnostic Procedure Only (Routine) - ClosedSpecialtyDiagnoses / ProceduresReferred By ContactReferred To ContactXR IMAGING Diagnoses Juvenile idiopathic scoliosis, unspecified spinal region Procedures XR SCOLIOSIS PA STAND/LAT 2V RADEX ENTIR THRC LMBR CRV SAC SPI W/SKULL 2/3 Phillip Shah PA-C [address] [place] [address] Xr Imaging Referral IDStatusReasonStart DateExpiration DateVisits RequestedVisits [id number] Auto-Generated Referral / [facility] for referral (narrative)* Diagnostic Procedure Only (Routine) - AuthorizedSpecialtyDiagnoses / ProceduresReferred By Contact Referred To ContactXR IMAGING Diagnoses Cervical spinal stenosis S/P spinal fusion Spinal stenosis of lumbar region with neurogenic claudication Pre-op testing Procedures XR SCOLIOSIS PA STAND/LAT 2V RADEX ENTIR THRC LMBR CRV SAC SPI W/SKULL 2/3 VW Phillip Shah PA-C [address] [place] [address] Xr Imaging Referral IDStatRobertoNoland Hospital [place] DateExpiration DateVisits RequestedVisits [id number] Auto-Generated Referral / * Consult, Test, Treat (Routine) - AuthorizedSpecialtyDiagnoses / Procedures Referred By ContactReferred To Contact Diagnoses Cervical spinal stenosis S/P spinal fusion Spinal stenosis of lumbar region with neurogenic claudication Pre-op testing Procedures REFER TO PACC - PRE ANESTHESIA CONSULTATION CLINIC OFFICE/OUTPATIENT [facility] 60-74 MINUTES Phillip Shah PA-C [address] [place] [address] Referral [facility]StatMag[facility] DateExpiration DateVisits RequestedVisits [id number] PCP Requested Referral / * Consult, Test, Treat (Routine) - AuthorizedSpecialtyDiagnoses / Procedures Referred By ContactReferred To [facility] Diagnoses Cervical spinal stenosis S/P spinal fusion Spinal stenosis of lumbar region with neurogenic claudication Pre-op testing Procedures CONSULT TO [facility] OFFICE/OUTPATIENT [facility] 60-74 MINUTES Phillip Shah PA-C [address] [place] [address] Referral IDStatusReasonStart DateExpiration DateVisits RequestedVisits [id number] PCP Requested Referral / [facility] for referral (narrative)* Diagnostic Procedure Only (Routine) - Pending ReviewSpecialtyDiagnoses / ProceduresReferred By Contact Referred To ContactXR IMAGING Diagnoses S/P spinal fusion Procedures XR SCOLIOSIS PA STAND/LAT 2V RADEX ENTIR THRC LMBR CRV SAC SPI W/SKULL 2/3 Kayleen Clark MD [address] [place] [address] Xr Imaging [place] [address] Referral IDStatusReasonStbabson park DateExpiration DateVisits RequestedVisits [id number] Review Auto-Generated Referral / [facility] for referral (narrative)* Diagnostic Procedure Only (Routine) - ClosedSpecialtyDiagnoses / ProceduresReferred By ContactReferred To ContactXR IMAGING Diagnoses Cervical spinal stenosis S/P spinal fusion Spinal stenosis of lumbar region with neurogenic claudication Pre-op testing Procedures XR SCOLIOSIS PA STAND/LAT 2V RADEX ENTIR THRC LMBR CRV SAC SPI W/SKULL 2/3 Phillip Cowan PA-C [address] [place] [address] Xr Imaging [place] [address] Referral IDStatusReasonStart DateExpiration DateVisits RequestedVisits [id number] Auto-Generated Referral / [facility] for referral (narrative)* Diagnostic Procedure Only (Routine) - Pending ReviewSpecialtyDiagnoses / ProceduresReferred By Contact Referred To ContactXR IMAGING Diagnoses Fusion of spine of thoracolumbar region Procedures XR SCOLIOSIS PA STAND/LAT 2V RADEX ENTIR THRC LMBR CRV SAC SPI W/SKULL 2/3 Phillip Shah PA-C [address] [facility] [id number] Xr Imaging [place] [address] Referral IDStatusReasonStart DateExpiration DateVisits RequestedVisits [id number] Review Auto-Generated Referral / * Physical Therapy (Routine) - Pending ReviewSpecialtyDiagnoses / Procedures Referred By ContactReferred To ContactREHAB AND SPORTS THERAP[facility] Diagnoses Fusion of spine of thoracolumbar region Procedures CONSULT TO PHYSICAL THERAPY PHYSICAL THERAPY EVALUATION HIGH COMPLEX 45 MINS Phillip Shah PA-C [address] [place] [address] [facility] [place] [address] [place] [address] Referral IDStatRobertoNoland Hospital [place] DateExpiration DateVisits RequestedVisits [id number] Review Auto-Generated Referral [facility] (narrative) Referred by: BECK MALAGON, MIRI [facility] [place] Reason for referral (narrative)* Reason For Referral No Information [facility] Work Phone: Reason for visit Narrative* Diagnostic Procedure Only (Routine) - ClosedSpecialtyDiagnoses / ProceduresReferred By ContactReferred To ContactXR IMAGING Diagnoses Juvenile idiopathic scoliosis, unspecified spinal region Procedures XR SCOLIOSIS PA STAND/LAT 2V RADEX ENTIR THRC LMBR CRV SAC SPI W/SKULL 2/3 Phillip Shah PA-C [address] [place] [address] Xr Imaging Referral IDStatusReasonStbabson park DateExpiration DateVisits RequestedVisits [id number] Auto-Generated Referral / [facility] for visit Narrative* Diagnostic Procedure Only (Routine) - ClosedSpecialtyDiagnoses / ProceduresReferred By ContactReferred To Contact XR IMAGING Diagnoses Cervical spinal stenosis S/P spinal fusion Spinal stenosis of lumbar region with neurogenic claudication Pre-op testing Procedures XR SCOLIOSIS PA STAND/LAT 2V RADEX ENTIR THRC LMBR CRV SAC SPI W/SKULL 2/3 Phillip Cowan PA-C [address] [place] [address] Xr Imaging [place] [address] Referral IDStatusReasonStbabson park DateExpiration DateVisits RequestedVisits [id number] Auto-Generated Referral / [facility] for visit Narrative* MRI/CT (Routine) - Pending Review SpecialtyDiagnoses / ProceduresReferred By ContactReferred To ContactCT IMAGING Diagnoses Arthrodesis status Procedures CT LUMBAR SPINE WO IVCON CT LUMBAR SPINE W/O CONTRAST MATERIAL Tiny Benson MD [address] [place] [address] Phone: tel: fax: CT IMAGING [place] [address] Referral IDStatPurcell [facility] [place] DateExpiration DateVisits RequestedVisits [id number] Review Auto-Generated Referral Patient Cleared - Admin/Oceanologist/Director advise to proceed or did not respond / [facility] for visit Narrative* Diagnostic Procedure Only (Routine) - ClosedSpecialtyDiagnoses / ProceduresReferred By ContactReferred To Contact XR IMAGING Diagnoses Arthrodesis status Procedures XR SCOLIOSIS PA STAND/LAT 2V RADEX ENTIR THRC LMBR CRV SAC SPI W/SKULL 2/3 Tiny Dunham MD [address] [place] [address] Phone: tel: fax: XR IMAGING [place] [address] Referral IDStatusReNoland Hospital [place] DateExpiration DateVisits RequestedVisits [id number] Auto-Generated Referral / [facility] of systems Narrative - Reported* System Pos/Neg Findings No Information [facility] Work Phone: Summary Purpose Family History No Family History Records Found Family Member Type Diagnosis Age At Onset No Information Advance Directives No Advanced Directives Records Found Directive Yes / No Effective Date File Name No Information Reason for Referral SpecialtyDiagnoses / ProceduresReferred By ContactReferred To ContactMR IMAGING Diagnoses Spinal stenosis of lumbar region, unspecified whether neurogenic claudication present Procedures MRI LUMBAR SPINE WO IVCON MRI SPINAL CANAL LUMBAR W/O CONTRAST MATERIAL Kavya Singh, FURNITURE REPAIR TECHNICIAN.PLASTIC PANEL INSTALLER [address] [place] [address] Mr Imaging [place] [address] Referral IDStatusReNoland Hospital [place] DateExpiration DateVisits RequestedVisits [id number] Auto-Generated Referral /[id number] / ProceduresReferred By ContactReferred To ContactCT IMAGING Diagnoses Chronic bilateral low back pain without sciatica Procedures CT THORACIC SPINE WO IVCON CT THORACIC SPINE W/O CONTRAST MATERIAL Sumeet De La Cruz MD [address] [place] [address] Ct Imaging [place] [address] Referral IDStatusReNoland Hospital [place] DateExpiration DateVisits RequestedVisits [id number] Auto-Generated Referral Clearance Not Met - Admin/Oceanologist/Director Advise to Postpone/Reschedule or Not Proceed /[id number] / ProceduresReferred By ContactReferred To ContactCT IMAGING Diagnoses Chronic bilateral low back pain without sciatica Procedures CT LUMBAR SPINE WO IVCON CT LUMBAR SPINE W/O CONTRAST MATERIAL Sumeet De La Cruz MD [address] [place] [address] Ct Imaging [place] [address] Referral IDStatusReasonStart DateExpiration DateVisits RequestedVisits [id number] Auto-Generated Referral Clearance Not Met - Admin/Oceanologist/Director Advise to Postpone/Reschedule or Not Proceed [id number] / ProceduresReferred By ContactReferred To ContactMR IMAGING Diagnoses Adolescent idiopathic scoliosis of thoracolumbar region Procedures MRI LUMBAR SPINE WO IVCON MRI SPINAL CANAL LUMBAR W/O CONTRAST MATERIAL Sumeet De La Cruz MD [address] [place] [address] Mr Imaging [place] [address] Referral IDStatusReasonStart DateExpiration DateVisits RequestedVisits [id number] Auto-Generated Referral Clearance Not Met - Admin/Oceanologist/Director Advise to Postpone/Reschedule or Not Proceed [id number] / ProceduresReferred By ContactReferred To ContactMR IMAGING Diagnoses Adolescent idiopathic scoliosis of thoracolumbar region Procedures MRI THORACIC SPINE WO IVCON MRI SPINAL CANAL THORACIC W/O CONTRAST MATRL Sumeet De La Cruz MD [address] [place] [address] Mr Imaging [place] [address] Referral IDStatusReasonStart DateExpiration DateVisits RequestedVisits [id number] Auto-Generated Referral Clearance Not Met - Admin/Oceanologist/Director Advise to Postpone/Reschedule or Not Proceed [id number] / ProceduresReferred By ContactReferred To ContactXR IMAGING Diagnoses Adolescent idiopathic scoliosis of thoracolumbar region Procedures XR SCOLIOSIS PA STAND/LAT 2V RADEX ENTIR THRC LMBR CRV SAC SPI W/SKULL 2/3 VW Sumeet De La Cruz MD [address] [place] [address] Xr Imaging [place] [address] Referral IDStatusReasonStart DateExpiration DateVisits RequestedVisits [id number] Auto-Generated Referral /[id number] / ProceduresReferred By ContactReferred To ContactCT IMAGING Diagnoses Arthrodesis status Procedures CT LUMBAR SPINE WO IVCON CT LUMBAR SPINE W/O CONTRAST MATERIAL Kavya Singh APRN.PLASTIC PANEL INSTALLER [address] [place] [address] Ct Imaging [place] [address] Referral IDStatusReasonStart DateExpiration DateVisits RequestedVisits [id number] Auto-Generated Referral Additional Source Comments INFORMATION SOURCE (unrecogn ized section and content) DATE CREATED AUTHOR 03/13/[address] [facility] DATE CREATED AUTHOR AUTHOR'S ORGANIZ ATION 03/13/2018 [facility] DATE CREATED AUTHOR AUTHOR'S ORGANIZ ATION 01/29/2022 [facility] DATE CREATED AUTHOR AUTHOR'S ORGANIZ ATION 02/14/2024 [facility] DATE CREATED AUTHOR AUTHOR'S ORGANIZ ATION 03/13/2024 [facility] DATE CREATED AUTHOR AUTHOR'S ORGANIZ ATION 12/15/2024 [facility] DATE CREATED AUTHOR AUTHOR'S ORGANIZ ATION 12/17/2024 [facility] DATE CREATED AUTHOR AUTHOR'S ORGANIZ ATION 02/14/2025 [facility] DATE CREATED AUTHOR AUTHOR'S ORGANIZ ATION 02/25/2025 [facility] DATE CREATED AUTHOR AUTHOR'S ORGANIZ ATION 04/18/2025 [facility] DATE CREATED AUTHOR AUTHOR'S ORGANIZ ATION 05/01/2025 [facility] DATE CREATED AUTHOR AUTHOR'S ORGANIZ ATION 06/21/2025 [facility] DATE CREATED AUTHOR AUTHOR'S ORGANIZ ATION 07/11/2025 [facility] DATE CREATED AUTHOR AUTHOR'S ORGANIZ ATION 07/21/2025 [facility] Care Team (unrecognized sect ion and content) Team MemberRelationshipSpecialtyStart DateEnd Date Christopher Hutson, PLASTIC PANEL INSTALLER [address] [facility] [address] [place] [address] ReferringFamily Medicine03/07/23Team MemberRelationshipSpecialtyStart DateEnd Date Christopher Hutson, PLASTIC PANEL INSTALLER [address] [address] [place] [address] ReferringFamily Medicine03/07/23Team MemberRelationshipSpecialtyStart DateEnd Date Christopher Hutson, PLASTIC PANEL INSTALLER [address] [place] [address] ReferringFamily Medicine03/07/23Team MemberRelationshipSpecialtyStart DateEnd Date Christopher Hutson, PLASTIC PANEL INSTALLER [address] [facility] [address] [place] [address] ReferringFamily Medicine03/07/23Team MemberRelationshipSpecialtyStart DateEnd Date Christopher Hutson, PLASTIC PANEL INSTALLER [address] [facility] [address] [place] [address] ReferringFamily Medicine03/07/23Team MemberRelationshipSpecialtyStart DateEnd Date Christopher Hutson, PLASTIC PANEL INSTALLER [address] [facility] [address] [place] [address] ReferringFamily Medicine03/07/23Team MemberRelationshipSpecialtyStart DateEnd Date Christopher Hutson, PLASTIC PANEL INSTALLER [address] [place] [address] ReferringFamily Medicine03/07/23Team MemberRelationshipSpecialtyStart DateEnd Date Christopher Hutson, PLASTIC PANEL INSTALLER [address] [facility] [address] [place] [address] ReferringFamily Medicine03/07/23Team MemberRelationshipSpecialtyStart DateEnd Date [place], Christopher W, PLASTIC PANEL INSTALLER [address] [address] ReferringFamily Medicine03/07/23Team MemberRelationshipSpecialtyStart DateEnd Date Bianka Woods MD [address] [place] [facility] [place] [address] PCP - GeneralInternal Medicine06/16/23 Christopher Hutson, PLASTIC PANEL INSTALLER [address] [address] ReferringFamily Medicine03/07/23Team MemberRelationshipSpecialtyStart DateEnd Date Bianka Woods MD [address] [place] [facility] [place] [address] PCP - GeneralInternal Medicine06/16/23 Christopher Hutson, PLASTIC PANEL INSTALLER [address] [address] ReferringFamily Medicine03/07/23Team MemberRelationshipSpecialtyStart DateEnd Date Bianka Woods MD [address] [place] [facility] [place] [address] PCP - GeneralInternal Medicine06/16/23 Christopher Hutson, PLASTIC PANEL INSTALLER [address] [address] ReferringFamily Medicine03/07/23Team MemberRelationshipSpecialtyStart DateEnd Date Bianka Woods MD [address] [place] [facility] [place] [address] PCP - GeneralInternal Medicine06/16/23 Christopher Hutson, FURNITURE REPAIR TECHNICIAN.PLASTIC PANEL INSTALLER [address] [facility] RT [place] [address] ReferringFamily Medicine03/07/23Team MemberRelationshipSpecialtyStart DateEnd Date Bianka Woods MD [address] [place] [facility] [place] [address] PCP - GeneralInternal Medicine06/16/23 Christopher Hutson, FURNITURE REPAIR TECHNICIAN.PLASTIC PANEL INSTALLER [address] [place] [address] ReferringFamily Medicine03/07/23Team MemberRelationshipSpecialtyStart DateEnd Date Bianka Woods MD [address] [place] [place] [address] PCP - GeneralInternal Medicine06/16/23 Christopher Hutson, FURNITURE REPAIR TECHNICIAN.PLASTIC PANEL INSTALLER [address] [address] ReferringFamily Medicine03/07/23Team MemberRelationshipSpecialtyStart DateEnd Date Unallocated, Noms Provider [address] [place] [address] PCP - GeneralFamily Medicine10/12/23Team MemberRelationshipSpecialtyStart DateEnd Date Unallocated, Noms Provider [address] [place] [address] PCP - GeneralFamily Medicine10/12/23Team MemberRelationshipSpecialtyStart DateEnd Date Unallocated, Noms Provider [address] [place] [address] PCP - GeneralFamily Medicine10/12/23Team MemberRelationshipSpecialtyStart DateEnd Date Bianka Woods MD [address] [place] [facility] [place] [address] PCP - GeneralInternal Medicine06/16/23 Christopher Hutson, FURNITURE REPAIR TECHNICIAN.PLASTIC PANEL INSTALLER [address] [facility] [address] [place] [address], [place] [address] ReferringFamily Medicine03/07/23Team MemberRelationshipSpecialtyStart DateEnd Date Bianka Woods MD [address] [place] [facility] [place] [address] PCP - GeneralInternal Medicine06/16/23 Christopher Hutson, FURNITURE REPAIR TECHNICIAN.PLASTIC PANEL INSTALLER [address] [place] [address] ReferringFamily Medicine03/07/23Team MemberRelationshipSpecialtyStart DateEnd Date Bianka Woods MD [address] [place] [place] [address] PCP - GeneralInternal Medicine06/16/23 Christopher Hutson, FURNITURE REPAIR TECHNICIAN.PLASTIC PANEL INSTALLER [address] [place] [address] ReferringFamily Medicine03/07/23Team MemberRelationshipSpecialtyStart DateEnd Date Bianka Woods MD [address] [place] [facility] [place] [address] PCP - GeneralInternal Medicine06/16/23 Christopher Hutson, FURNITURE REPAIR TECHNICIAN.PLASTIC PANEL INSTALLER [address] [place] [address] ReferringFamily Medicine03/07/23Team MemberRelationshipSpecialtyStart DateEnd Date Christopher Hutson, FURNITURE REPAIR TECHNICIAN.PLASTIC PANEL INSTALLER [address] [facility] [address] [place] [address] ReferringFamily Medicine03/07/23Team MemberRelationshipSpecialtyStart DateEnd Date Bianka Woods MD [address] [place] [facility] [place] [address] PCP - GeneralInternal Medicine06/16/23 Christopher Hutson, FURNITURE REPAIR TECHNICIAN.PLASTIC PANEL INSTALLER [address] [address] ReferringFamily Medicine03/07/23Team MemberRelationshipSpecialtyStart DateEnd Date Bianka Woods MD [address] [place] [place] [address] PCP - GeneralInternal Medicine06/16/23 Christopher Hutson, FURNITURE REPAIR TECHNICIAN.PLASTIC PANEL INSTALLER [address] [address] ReferringFamily Medicine03/07/23Team MemberRelationshipSpecialtyStart DateEnd Date Bianka Woods MD [address] [place] [place] [address] PCP - GeneralInternal Medicine06/16/23 Christopher Hutson, FURNITURE REPAIR TECHNICIAN.PLASTIC PANEL INSTALLER [address] [address] ReferringFamily Medicine03/07/23Team MemberRelationshipSpecialtyStart DateEnd Date Bianka Woods MD [address] [place] [place] [address] PCP - GeneralInternal Medicine06/16/23 Christopher Hutson, FURNITURE REPAIR TECHNICIAN.PLASTIC PANEL INSTALLER [address] [address] ReferringFamily Medicine03/07/23Team MemberRelationshipSpecialtyStart DateEnd Date Unallocated, Jose Miguel Brand MD [address] [place] [address] PCP - GeneralFamily Medicine10/12/23Team MemberRelationshipSpecialtyStart DateEnd Date Unallocated, Jose Miguel Brand MD [facility] [place] [address] PCP - GeneralFamily Medicine10/12/23Team MemberRelationshipSpecialtyStart DateEnd Date Bianka Woods MD [address] [id number] PCP - GeneralInternal Medicine06/16/23 Christopher Hutson, FURNITURE REPAIR TECHNICIAN.PLASTIC PANEL INSTALLER [address] [address] ReferringFamily Medicine03/07/23Team MemberRelationshipSpecialtyStart DateEnd Date Bianka Woods MD [address] [place] [address] PCP - GeneralInternal Medicine06/16/23 Christopher Hutson, FURNITURE REPAIR TECHNICIAN.PLASTIC PANEL INSTALLER [address] [address] ReferringFamily Medicine03/07/23Team MemberRelationshipSpecialtyStart DateEnd Date Unallocated, Jose Miguel Brand MD [address] [place] [address] PCP - GeneralFamily Medicine10/12/23 Name Effective Dates (start - stop) Status Members No Information Team MemberRelationshipSpecialtyStart DateEnd Date Unallocated, Jose Miguel Brand MD [address] [place] [address] PCP - GeneralFamily Medicine10/12/23Team MemberRelationshipSpecialtyStart DateEnd Date Unallocated, [place] MD Cathie [address] [facility] [place] [address] PCP - GeneralFamily Medicine10/12/23 Source Comments (unrecognize d section and content) In the event this informatio n is protected by the Federal Confidentiality of Alcohol and Drug Abuse Patient Records regulations: The Federal rules restrict any use of the information to criminally investigate or prosecute any alcohol or drug abuse patient.[facility] HospitalIn the event this information is protected by the Federal Confidentiality of Alcohol and Drug Abuse Patient Records regulations: The Federal rules restrict any use of the information to criminally investigate or prosecute any alcohol or drug abuse patient.[facility] HospitalIn the event this information is protected by the Federal Confidentiality of Alcohol and Drug Abuse Patient Records regulations: The Federal rules restrict any use of the information to criminally investigate or prosecute any alcohol or drug abuse patient.[facility] HospitalIn the event this information is protected by the Federal Confidentiality of Alcohol and Drug Abuse Patient Records regulations: The Federal rules restrict any use of the information to criminally investigate or prosecute any alcohol or drug abuse patient.[facility] HospitalIn the event this information is protected by the Federal Confidentiality of Alcohol and Drug Abuse Patient Records regulations: The Federal rules restrict any use of the information to criminally investigate or prosecute any alcohol or drug abuse patient.[facility] HospitalIn the event this information is protected by the Federal Confidentiality of Alcohol and Drug Abuse Patient Records regulations: The Federal rules restrict any use of the information to criminally investigate or prosecute any alcohol or drug abuse patient.[facility] HospitalIn the event this information is protected by the Federal Confidentiality of Alcohol and Drug Abuse Patient Records regulations: The Federal rules restrict any use of the information to criminally investigate or prosecute any alcohol or drug abuse patient.[facility] HospitalIn the event this information is protected by the Federal Confidentiality of Alcohol and Drug Abuse Patient Records regulations: The Federal rules restrict any use of the information to criminally investigate or prosecute any alcohol or drug abuse patient.[facility] HospitalIn the event this information is protected by the Federal Confidentiality of Alcohol and Drug Abuse Patient Records regulations: The Federal rules restrict any use of the information to criminally investigate or prosecute any alcohol or drug abuse patient.[facility] HospitalIn the event this information is protected by the Federal Confidentiality of Alcohol and Drug Abuse Patient Records regulations: The Federal rules restrict any use of the information to criminally investigate or prosecute any alcohol or drug abuse patient.[facility] HospitalIn the event this information is protected by the Federal Confidentiality of Alcohol and Drug Abuse Patient Records regulations: The Federal rules restrict any use of the information to criminally investigate or prosecute any alcohol or drug abuse patient.[facility] HospitalIn the event this information is protected by the Federal Confidentiality of Alcohol and Drug Abuse Patient Records regulations: The Federal rules restrict any use of the information to criminally investigate or prosecute any alcohol or drug abuse patient.[facility] HospitalIn the event this information is protected by the Federal Confidentiality of Alcohol and Drug Abuse Patient Records regulations: The Federal rules restrict any use of the information to criminally investigate or prosecute any alcohol or drug abuse patient.[facility] HospitalIn the event this information is protected by the Federal Confidentiality of Alcohol and Drug Abuse Patient Records regulations: The Federal rules restrict any use of the information to criminally investigate or prosecute any alcohol or drug abuse patient.[facility] HospitalIn the event this information is protected by the Federal Confidentiality of Alcohol and Drug Abuse Patient Records regulations: The Federal rules restrict any use of the information to criminally investigate or prosecute any alcohol or drug abuse patient.[facility] HospitalIn the event this information is protected by the Federal Confidentiality of Alcohol and Drug Abuse Patient Records regulations: The Federal rules restrict any use of the information to criminally investigate or prosecute any alcohol or drug abuse patient.[facility] HospitalIn the event this information is protected by the Federal Confidentiality of Alcohol and Drug Abuse Patient Records regulations: The Federal rules restrict any use of the information to criminally investigate or prosecute any alcohol or drug abuse patient.[facility] HospitalIn the event this information is protected by the Federal Confidentiality of Alcohol and Drug Abuse Patient Records regulations: The Federal rules restrict any use of the information to criminally investigate or prosecute any alcohol or drug abuse patient.[facility] HospitalIn the event this information is protected by the Federal Confidentiality of Alcohol and Drug Abuse Patient Records regulations: The Federal rules restrict any use of the information to criminally investigate or prosecute any alcohol or drug abuse patient.[facility] HospitalIn the event this information is protected by the Federal Confidentiality of Alcohol and Drug Abuse Patient Records regulations: The Federal rules restrict any use of the information to criminally investigate or prosecute any alcohol or drug abuse patient.[facility] HospitalIn the event this information is protected by the Federal Confidentiality of Alcohol and Drug Abuse Patient Records regulations: The Federal rules restrict any use of the information to criminally investigate or prosecute any alcohol or drug abuse patient.[facility] HospitalIn the event this information is protected by the Federal Confidentiality of Alcohol and Drug Abuse Patient Records regulations: The Federal rules restrict any use of the information to criminally investigate or prosecute any alcohol or drug abuse patient.[facility] HospitalIn the event this information is protected by the Federal Confidentiality of Alcohol and Drug Abuse Patient Records regulations: The Federal rules restrict any use of the information to criminally investigate or prosecute any alcohol or drug abuse patient.[facility] HospitalIn the event this information is protected by the Federal Confidentiality of Alcohol and Drug Abuse Patient Records regulations: The Federal rules restrict any use of the information to criminally investigate or prosecute any alcohol or drug abuse patient.[facility] HospitalIn the event this information is protected by the Federal Confidentiality of Alcohol and Drug Abuse Patient Records regulations: The Federal rules restrict any use of the information to criminally investigate or prosecute any alcohol or drug abuse patient.[facility] HospitalIn the event this information is protected by the Federal Confidentiality of Alcohol and Drug Abuse Patient Records regulations: The Federal rules restrict any use of the information to criminally investigate or prosecute any alcohol or drug abuse patient.[facility] HospitalIn the event this information is protected by the Federal Confidentiality of Alcohol and Drug Abuse Patient Records regulations: The Federal rules restrict any use of the information to criminally investigate or prosecute any alcohol or drug abuse patient.[facility] HospitalIn the event this information is protected by the Federal Confidentiality of Alcohol and Drug Abuse Patient Records regulations: The Federal rules restrict any use of the information to criminally investigate or prosecute any alcohol or drug abuse patient.[facility] HospitalIn the event this information is protected by the Federal Confidentiality of Alcohol and Drug Abuse Patient Records regulations: The Federal rules restrict any use of the information to criminally investigate or prosecute any alcohol or drug abuse patient.[facility] HospitalIn the event this information is protected by the Federal Confidentiality of Alcohol and Drug Abuse Patient Records regulations: The Federal rules restrict any use of the information to criminally investigate or prosecute any alcohol or drug abuse patient.[facility] HospitalIn the event this information is protected by the Federal Confidentiality of Alcohol and Drug Abuse Patient Records regulations: The Federal rules restrict any use of the information to criminally investigate or prosecute any alcohol or drug abuse patient.[facility] HospitalIn the event this information is protected by the Federal Confidentiality of Alcohol and Drug Abuse Patient Records regulations: The Federal rules restrict any use of the information to criminally investigate or prosecute any alcohol or drug abuse patient.[facility] HospitalIn the event this information is protected by the Federal Confidentiality of Alcohol and Drug Abuse Patient Records regulations: The Federal rules restrict any use of the information to criminally investigate or prosecute any alcohol or drug abuse patient.[facility] HospitalIn the event this information is protected by the Federal Confidentiality of Alcohol and Drug Abuse Patient Records regulations: The Federal rules restrict any use of the information to criminally investigate or prosecute any alcohol or drug abuse patient.[facility] HospitalIn the event this information is protected by the Federal Confidentiality of Alcohol and Drug Abuse Patient Records regulations: The Federal rules restrict any use of the information to criminally investigate or prosecute any alcohol or drug abuse patient.[facility] HospitalIn the event this information is protected by the Federal Confidentiality of Alcohol and Drug Abuse Patient Records regulations: The Federal rules restrict any use of the information to criminally investigate or prosecute any alcohol or drug abuse patient.[facility] Reason for Visit (unrecogniz ed section and content) ReasonCommentsFollow UpReasonCommentsPatient UpdateReasonCommentsAppeal sent SpecialtyDiagnoses / ProceduresReferred By ContactReferred To ContactCT IMAGING Diagnoses Arthrodesis status Procedures CT LUMBAR SPINE WO IVCON CT LUMBAR SPINE W/O CONTRAST MATERIAL Kavya Singh, FURNITURE REPAIR TECHNICIAN.PLASTIC PANEL INSTALLER [address] [place] [address] [address] [facility] Referral IDStatusReasonStart DateExpiration DateVisits RequestedVisits [id number] Auto-Generated Referral /[id number] PainReasonCommentsPreOp CallReason CommentsSurgery deniedReasonCommentsCARE CONTINUUM ADVISOR ASSESSMENTReason CommentsQuestionReasonCommentsPost OpReasonCommentsEstablished PatientFollow Up SpecialtyDiagnoses / ProceduresReferred By ContactReferred To ContactPhysical Therapy Diagnoses Fusion of spine, thoracolumbar region back surgery - scoliosis Procedures FL PHYS THERAPY EVALUATION Sumeet De La Cruz MD [facility] [address] [place] [address] Hernan Morales, PT [address] [place] [address] Referral IDStatusReasonStart DateExpiration DateVisits RequestedVisits [id number] / Procedures Referred By ContactReferred To ContactMR IMAGING Diagnoses Spinal stenosis of lumbar region, unspecified whether neurogenic claudication present Procedures MRI LUMBAR SPINE WO IVCON MRI SPINAL CANAL LUMBAR W/O CONTRAST MATERIAL Kavya Singh O, FURNITURE REPAIR TECHNICIAN.PLASTIC PANEL INSTALLER [address] [place] [address] [facility] [place] [address] Referral IDStatusReasonStbabson park DateExpiration DateVisits RequestedVisits [id number] Auto-Generated Referral /[id number] encounter-disregardReasonComments ResultsPatient QuestionReasonCommentsEstablished PatientReasonCommentsDiscuss cycleslump on breastReasonCommentsER Follow-up FOR RECORDS PERTAINING TO PATIENTS WHO ARE OR HAVE BEEN ENROLLED IN A CHEMICAL DEPENDENCY/SUBSTANCEABUSE PROGRAM, SOME INFORMATION MAY BE OMITTED. This clinical summary was aggregated from multiple sources. Caution should be exercised in using it in the provision of clinical care. This summary normalizes information from multiple sources, and as a consequence, information in this document may materially change the coding, format and clinical context of patient data. In addition, data may be omitted in some cases. CLINICAL DECISIONS SHOULD BE BASED ON THE PRIMARY CLINICAL RECORDS. [facility] HospitalblueKi[facility]. provides no warranty or guarantee of the accuracy or completeness of information in this document.
== END 2025-07-30 10:48 | disposition home or self-care (01) ==
LOC: PST 10:49
PROVIDERS: PCP Nurse Practitioner Family; Visit Provider Obstetrics & Gynecology
DX: Z01.810 Encounter for preprocedural cardiovascular examination (principal); N94.89 Other specified conditions associated with female genital organs and menstrual cycle
CPT/HCPCS: 71046; 93005

== ENCOUNTER 2025-08-07 12:21 | Day surgery (SDC) | payer OTHER, SELFPAY ==
--- OUTSIDE RECORDS SUMMARY | 2025-07-29 14:00 | XMS_ITS | Encounter Summary ---
Author Organization [facility] Address [address] [place] [address] Care Team Providers Care Radiation Physicist Name Role Phone Unallocated, Noms Provider Primary Care Provi otis Reason for Visit * ReasonCommentsPre-op Visit Encounter Details DateTypeDepartmentCare Team (Latest Contact Info)Eelyayljuxi17/11/2025 2:00 PM ESTConsult RYLEY Ochoa OBGYN [address] [place] [address] Stevenson Kiser DO [address] [facility] [address] [place] Ochoa, [facility]11 Pre-op examination; Request for sterilization; Pelvic congestion syndrome Social History Tobacco UseTypesPacks/DayYears UsedDateSmoking Tobacco: NeverSmokeless Tobacco: NeverAlcohol UseStandard Drinks/WeekCommentsNever0 (1 standard drink = 0.6 oz pure alcohol)CommentsNoSex and Gender InformationValueDate RecordedSex Assigned at BirthNot on fileLegal EwnCqhyxl56/15/2023 6:42 PM EDTGender Identity Not on fileSexual OrientationNot on filedocumented as of this encounter Last Filed Vital Signs Vital SignReadingTime TakenCommentsBlood Lhtdecvk134/6207/29/2025 2:02 PM EST Pulse--Temperature--Respiratory Rate--Oxygen Saturation--Inhaled Oxygen Concentration--Jbeqjz16.6 kg (171 lb)07/29/2025 2:02 PM FUOFusjvm902.3 cm (5' 9 )07/29/2025 2:02 PM ESTBody Mass Index25.25109/28/2024 2:02 PM ESTdocumented in this encounter Progress Notes * Tiffanie Angelone - 07/29/2025 2:00 PM EST Reason for Appointment: Patient ID: Yaneth Dennis is a 24 y.o. female who presents for Pre-op Visit Patient presents today for Pre Op appointment. Patient is scheduled to undergo Da Guicho assisted Diagnostic Laparoscopy with Bilateral Laparoscopic Salpingectomy on 08/01/[address] Kiser at [facility]. MEDICATIONS Current Outpatient Medications Medication Instructions amphetamine-dextroamphetamine XR (Adderall XR) 10 MG 24 hr capsule 10 mg, Daily RT Aurovela FE 10/07 1-20 MG-MCG tablet 1 tablet, Oral, Every morning escitalopram (LEXAPRO) 10 mg, Daily escitalopram (LEXAPRO) 20 mg, Daily gabapentin (NEURONTIN) 300 mg, 3 times daily hydrOXYzine HCl (ATARAX) 25 mg, Every 6 hours PRN tiZANidine (ZANAFLEX) 4 mg, Every 4 hours PRN ALLERGIES Allergies Allergen Reactions Amoxicillin-Pot Clavulanate Other Reaction(s): Vomiting, Vomiting Omnicef [Cefdinir] PROBLEMS Active Ambulatory Problems Diagnosis Date Noted DDD (degenerative disc disease), thoracolumbar 09/26/2023 History of spinal fusion 09/26/2023 Resolved Ambulatory Problems Diagnosis Date Noted No Resolved Ambulatory Problems Past Medical History: Diagnosis Date ADHD (attention deficit hyperactivity disorder) Back pain PTSD (post-traumatic stress disorder) HISTORY PAST MEDICAL HISTORY SOCIAL HISTORY Past Medical History: Diagnosis Date ADHD (attention deficit hyperactivity disorder) Back pain PTSD (post-traumatic stress disorder) Social History Tobacco Use Smoking status: Never Smokeless tobacco: Never Vaping Use Vaping status: Never Used Substance Use Topics Alcohol use: Never Drug use: Yes Types: Marijuana FAMILY HISTORY Family History Problem Relation Name Age of Onset Depression Mother Other (degenerative lumbar) Mother Depression Father Anxiety disorder Father Stroke Father Heart attack Father Other (lumbar degenerative) Father Depression Sister Depression Brother Osteoporosis Paternal Grandmother SURGICAL HISTORY Past Surgical History: Procedure Laterality Date LUMBAR FUSION REVIEW OF SYSTEMS Review of Systems: Review of Systems Constitutional: Negative. HENT: Negative. Eyes: Negative. Respiratory: Negative. Cardiovascular: Negative. Gastrointestinal: Negative. Genitourinary: Negative. Musculoskeletal: Negative. Skin: Negative. Neurological: Negative. All other systems reviewed and are negative. Hematological: Negative. Endocrine: Negative. Allergic/Immunologic: Negative. OBJECTIVE Objective: Physical Exam Constitutional: Appearance: Normal appearance. She is well-developed. Cardiovascular: Rate and Rhythm: Normal rate and regular rhythm. Pulmonary: Effort: Pulmonary effort is normal. Breath sounds: Normal breath sounds. Abdominal: General: Bowel sounds are normal. There is no distension. Palpations: Abdomen is soft. Tenderness: There is no abdominal tenderness. There is no guarding or rebound. Musculoskeletal: General: No swelling. Normal range of motion. Right lower leg: No edema. Left lower leg: No edema. Neurological: Mental Status: She is alert and oriented to person, place, and time. Skin: General: Skin is warm and dry. Psychiatric: Mood and Affect: Mood normal. Behavior: Behavior normal. Vitals and nursing note reviewed. Exam conducted with a employee relations advisor present. Vitals: Estimated body mass index is 25.25 kg/m?? as calculated from the following: Height as of this encounter: 5' 9 . Weight as of this encounter: 171 lb. BP: 110/62 No LMP recorded (lmp unknown). ASSESSMENT & PLAN ICD-10-CM 1. Pre-op examination Z01.818 2. Request for sterilization Z30.2 3. Pelvic congestion syndrome N94.89 Pre Op: Patient is doing well but has complaints of discomfort from pelvic congestion syndrome and has a desire for sterilization. I have discussed conservative management vs. surgical management with the patient in detail and patient desires surgical management at this time. Patient has voiced understanding that a Bilateral Salpingectomy is considered to be permanent and patient will undergo Da Guicho assisted Diagnostic Laparoscopy with Bilateral Laparoscopic Salpingectomy on 08/01/2025. Surgical consents were signed, mmc was reviewed, and patient is to proceed to [facility] OR. Follow Up: Patient is to follow up between 1-2 weeks post op to assess proper healing and recovery from procedure. Documented by Guillermina Wu LPN on behalf of: Stevenson Kiser DO documented in this encounter Plan of Treatment DateTypeDepartmentCare Team (Latest Contact Info)Qjxglfmfoup48/01/2025 11:30 AM ESTOffice Visit [facility] [address] [place] [address] [place] [address] Tamra Epstein PA [address] [address] documented as of this encounter Visit Diagnoses Diagnosis Pre-op examination Request for sterilization Pelvic congestion syndrome documented in this encounter Care Teams Team MemberRelationshipSpecialtyStart DateEnd Date Unallocated, Noms Provider, [address] [place] [address] PCP - GeneralFamily Medicine10/12/23documented as of this encounter
[2025-07-30 11:23] VITALS: BP 114/70; PULSE 53; TEMP 36.5; O2SAT 100; BMI 25.9
[2025-08-07] VITALS (9 sets, daily range): BP systolic 88–110; BP diastolic 44–58; PULSE 48–74; TEMP 35.9–36.4; O2SAT 95–100; BMI 25.3
--- OUTSIDE RECORDS SUMMARY | 2025-08-07 12:26 | XMS_ITS | Clinical Summary ---
Author Organization [facility] Address [address] [place] [address] Care Team Providers Care Sports Medicine Physician Name Role Phone Unallocated, Noms Provider Primary Care Provi otis Allergies Active AllergyReactionsCriticalityNoted DateCommentsAmoxicillin-Pot Clavulanate 04/24/2023 Other Reaction(s): Vomiting, Vomiting Ozflusuy45/04/2025 Medications MedicationSigDispense QuantityRefillsLast FilledStart DateEnd DateStatus amphetamine-dextroamphetamine [...] by mouth every 6 (six) hours if dbxwwr0402/10/2023ctive tiZANidine (Zanaflex) 4 MG tablet Take 4 mg by mouth every 4 (four) hours if zwzuau5711/16/2023ctive Aurovela FE 10/07 1-20 MG-MCG tablet Indications: [...] EVERY DAY IN THE MORNING 84 tablet 51Discontinued levonorgestrel-ethinyl estradiol (Jolessa) 0.15-0.03 MG tablet Indications:Dysmenorrhea,Pelvic [...] (degenerative disc disease), thoracolumbar 09/26/2023History of spinal znsuwa4609/26/2023 Encounters DateTypeDepartmentCare ViocCrayjuxjzpw54/13/2025bstract [facility] [address] [place] [address] Felipa Kiser, DO 5Clinisync Result Encounter NOMS External Department Unsolicited Felipa Kiser, DO 5Clinisync Result Encounter NOMS External Department Unsolicited Felipa Kiser, DO 07/29/2025 2:00 PM ESTConsult NOMVioleta VINCENT [address] [place] [address] Felipa Kiser, DO Pre-op examination; Request for sterilization; Pelvic congestion mezljnjs00/11/2025amboo flowsheet [facility] [address] [place] [address] Felipa Kiser, DO 07/16/2025Refill [facility] [address] [place] [address] Zhane John LPN 07/06/20258941Tbmubf68/17/2025Refill [facility] [address] [place] [address] Felipa Kiser DO control qknfwxissf83/29/2025 9:30 AM EDTAncillary Procedure [facility] [address] [place] [phone] PCOS (polycystic ovarian syndrome)06/11/2025Telephone [facility] [place] [facility] [address] [phone] Felipa Kiser DO 06/02/2025 1:10 PM EDTOffice Visit [facility] [address] [place] [address] Felipa Kiser DO PCOS (polycystic ovarian syndrome) (Primary Dx); Pelvic congestion syndrome; Follow-up exam06/02/2025amboo flowsheet [facility] [address] [address] Felipa Kiser DO 05/26/2025bstract [facility] [address] [address] Felipa Kiser DO from Last 3 Months Family History Medical HistoryRelationNameCommentsDepressionBrotherAnxiety disorderFather DepressionFatherHeart attackFatherStrokeFatherlumbar degenerativeFather DepressionMotherdegenerative lumbarMotherOsteoporosisPaternal Grandmother DepressionSisterRelationNameStatusCommentsBrotherAliveFatherAliveMotherAlive Paternal GrandmotherDeceasedSisterAlive Social History Tobacco UseTypesPacks/DayYears UsedDateSmoking Tobacco: NeverSmokeless Tobacco: Never Tobacco Cessation:Counseling Given: Not Answered Alcohol UseStandard Drinks/WeekCommentsNever0 (1 standard drink = 0.6 oz pure alcohol)CommentsNoSex and Gender InformationValueDate RecordedSex Assigned at BirthNot on fileLegal EbrLaxldb74/15/2023 6:42 PM EDTGender Identity Not on fileSexual OrientationNot on file Last Filed Vital Signs Vital SignReadingTime TakenCommentsBlood Aavomcpi248/6207/29/2025 2:02 PM EST Pulse--Temperature--Respiratory Rate--Oxygen Saturation--Inhaled Oxygen Concentration--Pmaroa26.6 kg (171 lb)07/29/2025 2:02 PM YPCQlxrhy675.3 cm (5' 9 )07/29/2025 2:02 PM ESTBody Mass Index25.25109/28/2024 2:02 PM EST Plan of Treatment DateTypeDepartmentCare Team (Latest Contact Info)Qldgumswyqt89/01/2025 11:30 AM ESTOffice Visit [facility] OBGYMarvin [address] [place] [phone] Tamra Epstein PA [address] [place] [address] Health MaintenanceDue DateLast DoneCommentsPneumococcal Vaccine: Pediatrics (0 to 5 Years) and At-Risk Patients (6 to 64 Years) (1 of 2 - PCV)2019COVID- 19 Vaccine (1 - season)2025Influenza Vaccine (#1)2025 07/27/2007 Procedures Procedure NamePriorityDate/TimeAssociated DiagnosisCommentsXR CHEST 2V109/29/2024 12:12 PM EST ECG 12-LEAD07/30/2025 10:23 AM EST US PELVIC COMPLETE W/ AMGfxhomo01/29/2025 9:58 AM EDT PCOS (polycystic ovarian syndrome) from Last 3 Months Results * XR CHEST 2V (07/30/2025 12:12 PM EST)Anatomical RegionLateralityModalityOther Specimen (Source)Anatomical Location / LateralityCollection Method / Volume Collection TimeReceived Time07/30/2025 12:12 PM EST Narrative 07/30/2025 12:15 PM EST [facility] ?[address] ? [place] [address] ?XRay Report ? Signed ? Patient: NITA,DARLENENN L ?MR#: [id number] ?? : 2000 ?Acct:[id number] ?? Age/Sex: 24 / F ?ADM Date: 07/30/25 ?? Loc: PST ? Attending Dr: Felipa Kiser D.O. ? Ordering Physician: Felipa Kiser D.O. ?? Date of Service: 07/30/25 ?? Procedure(s): XR chest 2V ?? Accession Number(s): [id number] ? cc: Holley Nur NP; Felipa Kiser D.O. ? [facility] ? [address] ? [place] [address] ? Patient Name: ?? YANETH DENNIS ? MRN: [facility]:[id number] ? date: 2000 ?Sex: F ?? Assigned Patient Location: SURGOUT ?? Current Patient Location: SURGOUT ?? Accession/Order Number: [id number] ?? Exam Date: 07/30/2025 ??11:25 ?Report Date: 07/30/2025 ??12:12 ? At the request of: ?? FELIPA ??MARGI ??DO ? Procedure: ??XR chest 2V ? PA AND LATERAL CHEST: ? CLINICAL HISTORY: Preoperative clearance . History of tobacco use. ? COMPARISON: None ? There is no focal parenchymal consolidation, effusion or pneumothorax. ?? The ?? cardiac, hilar and mediastinal silhouettes are within normal limits. ?? There ?? is no vascular congestion. ?? There is S-shaped thoracolumbar scoliotic ?? curvature and Crandall rods. ? XR/XR chest 2V ?? IMPRESSION: ? NO ACUTE CARDIOPULMONARY ABNORMALITY. ? Impression dictated by: Guillermina Lopez M.D. ??07/30/2025 12:12 PM ? Dictation Location: RADIO-PC-02 ? Electronically authenticated by: [id number] ??Y ?? Date: 07/30/2025 ??12:12 ? Dictated By: ?Guillermina Lopez M.D. ? Signed By: ?07/30/255 ? DD/ 1212 ? TD/TT: ? Vp Foundation: Procedure Note Radiology, Radiologist, MD - 07/30/[address] [address] XRay Report Signed Patient: YANETH DENNIS LMR#: [id number] : 2000Acct:[id number] Age/Sex: 24 / FADM Date: 07/30/25 Loc: [facility] Attending Dr: Felipa Kiser D.O. Ordering Physician: Felipa Kiser D.O. Date of Service: 07/30/25 Procedure(s): XR chest 2V Accession Number(s): [id number] cc: Holley Nur NP; Felipa Kiser D.O. The [address] [address] Patient Name: YANETH DENNIS MRN: [facility]:[id number] date: 2000 Sex: F Assigned Patient Location: [facility] Current Patient Location: [facility] Accession/Order Number: [id number] Exam Date: 07/30/2025 11:25 Report Date: 07/30/2025 12:12 At the request of: FELIPA KISER DO Procedure: XR chest 2V PA AND LATERAL CHEST: CLINICAL HISTORY: Preoperative clearance . History of tobacco use. COMPARISON: None There is no focal parenchymal consolidation, effusion or pneumothorax.The cardiac, hilar and mediastinal silhouettes are within normal limits.There is no vascular congestion. There is S-shaped thoracolumbar scoliotic curvature and Crandall rods. XR/XR chest 2V IMPRESSION: NO ACUTE CARDIOPULMONARY ABNORMALITY. Impression dictated by: Guillermina Lopez M.D. 07/30/2025 12:12 PM Dictation Location: [place] [address] Electronically authenticated by: [id number] Y Date: 2:12 Dictated By: Guillermina Lopez M.D. Signed By:07/30/255 DD/ 11 TD/TT: Vp Foundation: Authorizing ProviderResult TypeResult StatusCorey Margi DOCLINISYNC IMAGINGFinal Result * ECG 12-LEAD (07/30/2025 10:23 AM EST)Anatomical RegionLateralityModalityOther Specimen (Source)Anatomical Location / LateralityCollection Method / Volume Collection TimeReceived Time07/30/2025 10:23 AM EST Narrative 07/30/2025 12:27 PM EST [facility] ?[address] ? [place], [facility] ? Electrocardiograph Report ? Signed ? Patient: JOE DENNISCARA Zhang ?MR#: [id number] ?? : 2000 ?Acct:[id number] ?? Age/Sex: 24 / F ?ADM Date: 07/30/25 ?? Loc: PST ? Attending Dr: Felipa Kiser D.O. ? Ordering Physician: Felipa Kiser D.O. ?? Date of Service: 07/30/25 ?? Procedure(s): ECG 12 lead ?? Accession Number(s): [id number] ? cc: ?[facility] ? Test Date: ?2025-07-30 ?? Pat Name: ? YANETH DENNIS ?Department: ? Room: ? - ?? Gender: ? Female ? Hogshead Dumper: ? : ?2000 ? Requested By: FELIPA KISER ?? Order Number: [id number] ?Reading MD: ?? EHAB ??ELTAHAWY ? Measurements ?? Intervals ?[place] ? Rate: ? 48 ? P: ?49 ?? MI: ? 118 ?QRS: ?65 ?? QRSD: ? 99 ? T: ?70 ?? QT: ? 465 ? QTc: ?417 ? Interpretive Statements ?? MARKED SINUS BRADYCARDIA WITH SINUS ARRHYTHMIA WITH SHORT MI INTERVAL ?? POSSIBLE RIGHT VENTRICULAR CONDUCTION DELAY [RSR (QR) IN V1/V2] ?? No previous ECG available for comparison ?? Electronically Signed On 07-30-2025 12:27:13 EST by EHAB ??ELTAMANAY ? Dictated By: ?Evelyn,Jamaalab M.D. ? Signed By: ?07/30/25 1227 ? DD/ 1023 ? TD/TT: ? Vp Foundation: Procedure Note Radiology, Radiologist, MD - 07/30/2025 [place] [address] Electrocardiograph Report Signed Patient: YANETH DENNIS R#: [id number] : 2000Acct:[id number] Age/Sex: 24 / FADM Date: 07/30/25 Loc: [facility] Attending Dr: Felipa Kiser D.O. Ordering Physician: Felipa Kiser D.O. Date of Service: 07/30/25 Procedure(s): ECG 12 lead Accession Number(s): [id number] cc: [facility] Test Date: 2025-07-30 Pat Name: YANETH DENNIS Department: Room: - Gender: Female Hogshead Dumper: : 2000 Requested By: FELIPA KISER Order Number: [id number] Reading MD: ANDREW RIVAS Measurements Intervals [place] Rate: 48 P: 49 MI: 118 QRS: 65 QRSD: 99 T: 70 QT: 465 QTc: 417 Interpretive Statements MARKED SINUS BRADYCARDIA WITH SINUS ARRHYTHMIA WITH SHORT MI INTERVAL POSSIBLE RIGHT VENTRICULAR CONDUCTION DELAY [RSR (QR) IN V1/V2] No previous ECG available for comparison Electronically Signed On 07-30-2025 12:27:13 EST by ANDREW RIVAS Dictated By: Andrew Rivas M.D. Signed By:07/30/25 1227 DD/ 1023 TD/TT: Vp Foundation: Authorizing ProviderResult TypeResult StatusCorey Margi DOCLINISYNC IMAGINGFinal Result * US Pelvis w/ TV (06/16/2025 9:58 [...] appears unremarkable. No fluid is seen within hzebwd-qs-neq. Both ovaries appear normal for this age. IMPRESSION: Normal pelvic ultrasound appearance TRANSCRIBED BY: ELECTRONICALLY SIGNED BY: Logan Diaz MD Authorizing ProviderResult TypeResult StatusDeanna Garcia NPIMG US PROCEDURES Final Result from Last 3 Months Insurance Care Teams Team MemberRelationshipSpecialtyStart DateEnd Date Unallocated, Noms Provider, [address] [place], [place] [phone] PCP - GeneralFamily Medicine10/12/23
--- OUTSIDE RECORDS SUMMARY | 2025-08-07 12:26 | XMS_ITS | Encounter Summary ---
Author Organization [facility] Address [address] [place] [address] Care Team Providers Care Audit Associate Name Role Phone Unallocated, Noms Provider Primary Care Provi otis Encounter Details DateTypeDepartmentCare Team (Latest Contact Info)Rhbjmusxxoy66/12/2025linisync Result Encounter [facility] External Department Unsolicited Felipa Kiser DO [address] [place], [place] [address] Social History Tobacco UseTypesPacks/DayYears UsedDateSmoking Tobacco: NeverSmokeless Tobacco: NeverAlcohol UseStandard Drinks/WeekCommentsNever0 (1 standard drink = 0.6 oz pure alcohol)CommentsNoSex and Gender InformationValueDate RecordedSex Assigned at BirthNot on fileLegal FpbXfvgxc31/15/2023 6:42 PM EDTGender Identity Not on fileSexual OrientationNot on filedocumented as of this encounter Plan of Treatment DateTypeDepartmclaren greater [facility]ansing hospitalCare Team (Latest Contact Info)Yivihokeytv57/01/2025 11:30 AM ESTOffice Visit [facility] [address] [place] [phone] Tamra Epstein PA [address] [place], [facility] documented as of this encounter Procedures Procedure NamePriorityDate/TimeAssociated DiagnosisCommentsECG 12-LEAD07/30/2025 10:23 AM EST documented in this encounter Results * ECG 12-LEAD (07/30/2025 10:23 AM EST)Anatomical RegionLateralityModalityOther Specimen (Source)Anatomical Location / LateralityCollection Method / Volume Collection TimeReceived Time07/30/2025 10:23 AM EST Narrative 07/30/2025 12:27 PM EST [facility] ?[address] ? [place] [address] ? Electrocardiograph Report ? Signed ? Patient: NITAAYDE Zhang ?MR#: [id number] ?? : 2000 ?Acct:[id number] ?? Age/Sex: 24 / F ?ADM Date: 07/30/25 ?? Loc: PST ? Attending Dr: Felipa Kiser D.O. ? Ordering Physician: Felipa Kiser D.O. ?? Date of Service: 07/30/25 ?? Procedure(s): ECG 12 lead ?? Accession Number(s): [id number] ? cc: ?[facility] ? Test Date: ?2025-07-30 ?? Pat Name: ? AYDE DENNIS ?Department: ? Room: ? - ?? Gender: ? Female ? Fulfillment Representative: ? : ?2000 ? Requested By: FELIPA KISER ?? Order Number: [id number] ?Reading MD: ?? EHAB ??ELTAHAWY ? Measurements ?? Intervals ?[place] ? Rate: ? 48 ? P: ?49 ?? RI: ? 118 ?QRS: ?65 ?? QRSD: ? 99 ? T: ?70 ?? QT: ? 465 ? QTc: ?417 ? Interpretive Statements ?? MARKED SINUS BRADYCARDIA WITH SINUS ARRHYTHMIA WITH SHORT RI INTERVAL ?? POSSIBLE RIGHT VENTRICULAR CONDUCTION DELAY [RSR (QR) IN V1/V2] ?? No previous ECG available for comparison ?? Electronically Signed On 07-30-2025 12:27:13 EST by EHAB ??EVELYN ? Dictated By: ?Evelyn,Kane M.D. ? Signed By: ?07/30/25 1227 ? DD/ 1023 ? TD/TT: ? [employer] Professor: Procedure Note Radiology, Radiologist, MD - 07/30/2025 [place] [address] Electrocardiograph Report Signed Patient: AYDE DENNIS R#: [id number] : 2000Acct:[id number] Age/Sex: 24 / FADM Date: 07/30/25 Loc: [facility] Attending Dr: Felipa Kiser D.O. Ordering Physician: Felipa Kiser D.O. Date of Service: 07/30/25 Procedure(s): ECG 12 lead Accession Number(s): [id number] cc: [facility] Test Date: 2025-07-30 Pat Name: AYDE DENNIS Department: Room: - Gender: Female Fulfillment Representative: : 2000 Requested By: FELIPA KISER Order Number: [id number] Reading MD: KANE RIVAS Measurements Intervals Essie Rate: 48 P: 49 RI: 118 QRS: 65 QRSD: 99 T: 70 QT: 465 QTc: 417 Interpretive Statements MARKED SINUS BRADYCARDIA WITH SINUS ARRHYTHMIA WITH SHORT RI INTERVAL POSSIBLE RIGHT VENTRICULAR CONDUCTION DELAY [RSR (QR) IN V1/V2] No previous ECG available for comparison Electronically Signed On 07-30-2025 12:27:13 EST by KANE RIVAS Dictated By: Kane Rivas M.D. Signed By:07/30/25 1227 DD/ 1023 TD/TT: [employer] Professor: Authorizing ProviderResult TypeResult StatusCorey Margi DOCLINISYNC IMAGINGFinal Result documented in this encounter Visit Diagnoses Not on filedocumented in this encounter Care Teams Team MemberRelationshipSpecialtyStart DateEnd Date Unallocated, Noms Provider, [address] [place] [address] PCP - GeneralFamily Medicine10/12/23documented as of this encounter
--- OUTSIDE RECORDS SUMMARY | 2025-08-07 12:26 | XMS_ITS | Clinical Summary ---
Author Organization [facility] Address [address] [place] [address] Care Team Providers Care Video Production Specialist Name Role Phone Annabel Scott Maddox APRN.SENIOR NET C DEVELOPER Unavailable [phone] Bianka Woods MD Primary Care Provider [phone] Allergies Active AllergyReactionsCriticalityNoted DateCommentsAmoxicillin-Pot Clavulanate Lpgbytmd51/07/2023 Medications MedicationSigDispense QuantityRefillsLast FilledStart DateEnd DateStatus Norethin Caden-Eth Estrad-FE (,) 1 mg-20 mcg (21)/75 mg (7) per tablet TAKE 1 TABLET BY MOUTH EVERY DAY04/21/2022ctive escitalopram oxalate (LEXAPRO) 20 mg tablet Take 30 mg by mouth every afternoon.04/11/2023ctive hydrOXYzine HCl (ATARAX) 25 mg tablet TAKE 1 TABLET BY MOUTH 4 TIMES A DAY NEEDED FOR GSQVSQC7004/02/2023ctive acetaminophen (TYLENOL) 500 mg tablet 2 tablets by ORAL/FEEDING TUBE route every 6 hours as needed for pain.07/15/2023 Active methocarbamol (ROBAXIN) 750 mg tablet Take 1 tablet by mouth every 6 hours as needed. 90 tablet 07/15/2023 2:28 PM EDT1ctive Additional Information Patient not taking.Reason: Course of Therapy Completed, Reported on 01/02/2024 senna-docusate (SENNA-S) 8.6-50 mg per tablet Take 2 tablets by mouth two times a day. 20 tablet 07/15/2023 2:28 PM EDT1ctive Additional Information Patient not taking.Reason: Course of Therapy Completed, Reported on 01/02/2024 tiZANidine HCl (ZANAFLEX) 4 mg capsule Take 4 mg by mouth daily at bedtime.Active dextroamphetamine-amphetamine (ADDERALL) 10 mg tablet Take 10 mg by mouth once daily.0Active amphetamine-dextroamphetamine XR (ADDERALL XR) 10 mg capsule Take 10 mg by mouth once daily.0Active Active Problems ProblemNoted DateDiagnosed DateUTI (urinary tract infection)07/14/2023 Assessment & Plan (07/14/2023 11:41 AM EDT): Assessment: UA concerning for UTI PLAN: -Likely not catheter associated as vieyra catheter was removed on POD1 -Culture pending -Started on empiric nitrofurantoin Urinary isaxsirfb77/26/2023 Assessment & Plan (07/14/2023 11:42 AM EDT): Assessment: Urinary retention PLAN: -Vieyra replaced for retention -Will discharge with vieyra in place, will follow-up with local urologist. Follow-up appointment arranged with [facility] on 07/20 at 8:30 AM Assessment & Plan (07/13/2023 10:03 AM EDT): Assessment: Urinary retention PLAN: -Required straight cath x1 overnight -Voiding small amounts on own -q4h bladder scans and prn straight caths -If urinary retention persists may need replacement of vieyra catheter Painful orthopaedic wxyohcyg99/25/2023 Assessment & Plan (07/14/2023 11:42 AM EDT): Assessment: S/p Revision T2-L3 posterior spinal fusion on 07/11 PLAN: -See thoracolumbar fusion POC Assessment & Plan (07/13/2023 10:04 AM EDT): Assessment: S/p Revision T2-L3 posterior spinal fusion on 07/11 PLAN: -See thoracolumbar fusion POC Assessment & Plan (07/12/2023 11:04 AM EDT): Assessment: S/p Revision T2-L3 posterior spinal fusion on 07/11 PLAN: -See thoracolumbar fusion POC Fusion of spine, thoracolumbar pssffr9507/12/2023 Assessment & Plan (07/14/2023 11:42 AM EDT): Assessment: S/p Revision T2-L3 posterior spinal fusion on 07/11 PLAN: -Pain control: GUEST EXPERIENCE REPRESENTATIVE discontinued, continue PO meds -Drains removed -PT recommending HHC -UR scoliosis XR when able -DVT ppx: continue IPCs, heparin SQ bid beginning POD2 -OOB for meals, mobilize at least 3x daily -D/w Dr. De La Cruz Assessment & Plan (07/13/2023 10:04 AM EDT): Assessment: S/p Revision T2-L3 posterior spinal fusion on 07/11 PLAN: -Pain control: taper GUEST EXPERIENCE REPRESENTATIVE today, continue PO meds -Maintain drains -PT recommending HHC -UR scoliosis XR when able -DVT ppx: continue IPCs, heparin SQ bid beginning POD2 -OOB for meals, mobilize at least 3x daily -D/w Dr. De La Cruz Assessment & Plan (07/12/2023 11:03 AM EDT): Assessment: S/p Revision T2-L3 posterior spinal fusion on 07/11 PLAN: -Pain control: continue GUEST EXPERIENCE REPRESENTATIVE, begin weaning tomorrow -Maintain drains -PT recommending HHC -UR scoliosis XR when able -DVT ppx: continue IPCs, heparin SQ bid beginning POD2 -OOB for meals, mobilize at least 3x daily -D/w Dr. De La Cruz Acute postoperative anemia due to expected blood loss07/12/2023 Assessment & Plan (07/14/2023 11:42 AM EDT): Assessment: Post op anemia PLAN: -Trend daily -Transfuse for Hgb less than 7.0 or symptomatic anemia Assessment & Plan (07/13/2023 10:04 AM EDT): Assessment: Post op anemia PLAN: -Trend daily -Transfuse for Hgb less than 7.0 or symptomatic anemia Assessment & Plan (07/12/2023 11:02 AM EDT): Assessment: Post op anemia PLAN: -Trend daily -Transfuse for Hgb less than 7.0 or symptomatic anemia Thoracic dymwuwqvtr18/24/2023 Assessment & Plan (07/14/2023 11:43 AM EDT): Assessment: POA PLAN: -See thoracolumbar fusion POC Assessment & Plan (07/13/2023 10:04 AM EDT): Assessment: POA PLAN: -See thoracolumbar fusion POC Assessment & Plan (07/12/2023 11:05 AM EDT): Assessment: POA PLAN: -See thoracolumbar fusion POC Obese06/16/2023 Assessment & Plan (06/16/2023 8:51 AM EDT): Assessment: Body mass index is 31.93 kg/m??. Pelvic pain06/16/2023 Assessment & Plan (06/21/2023 9:50 AM EDT): Assessment: states has mild right lower abdominal/ pelvic pain for one week. Mild tenderness on palpitations. States had irritation with urination recently. Urine culture x2- Culture >=100,000 CFU/ml Mixed microbiota Abnormal No further workup. Mixed microbiota can be due to??urine??contamination with skin bacteria at time of collection or presence of a long-term urinary catheter. If a new culture is needed, please consider re-education of the patient on proper midstream collection technique or straight catheterization f or??urine??collection. Antibiotic ordered Other specified anxiety qudcusahr47/07/2023 Overview (04/24/2023): Takes hydroxyzine prn for anxiety prn which helps Assessment & Plan (06/16/2023 8:50 AM EDT): Assessment: PRN medication States anxious prior to surgery and received valium prior to last surgery Depressive hjhqnjyu61/07/2023 Overview (04/24/2023): Takes lexapro for depression & regan well Assessment & Plan (06/16/2023 8:49 AM EDT): Assessment: Managed on Lexapro by PCP Postoperative pain Assessment & Plan (07/14/2023 11:43 AM EDT): Assessment: Postop pain PLAN: -GUEST EXPERIENCE REPRESENTATIVE discontinued -Continue prn oxycodone and robaxin Assessment & Plan (07/13/2023 10:04 AM EDT): Assessment: Postop pain PLAN: -Taper GUEST EXPERIENCE REPRESENTATIVE today -Continue prn oxycodone and robaxin Assessment & Plan (07/12/2023 11:05 AM EDT): Assessment: Postop pain PLAN: -Continue IV GUEST EXPERIENCE REPRESENTATIVE, begin tapering tomorrow -Continue prn oxycodone and robaxin Back pain/03/2023Family history of breast gkpquw34/03/2023 Social rzynta76nxiety disorder due to medical condition /03/2023Moderate major snfstkjulk61 Assessment & Plan (07/14/2023 11:42 AM EDT): Assessment: POA PLAN: -Continue home meds Assessment & Plan (07/13/2023 10:04 AM EDT): Assessment: POA PLAN: -Continue home meds Assessment & Plan (07/12/2023 11:04 AM EDT): Assessment: POA PLAN: -Continue home meds Rtcozxzjb71 Immunizations ImmunizationAdministration DatesNext Duediphtheria tetanus pertussis (DTaP) vaccine, unspecified yfcppfefsfi11/26/2006,03/10/2004,07/31/2002,07/31/2002, 04/26/2001,01/24/2001hepatitis B (HepB) vaccine, 3-dose series, age 0 yr - 19 yr (ENGERIX B-PEDS, RECOMBIVAX HB-PEDS)07/31/2002,01/24/2001,2000influenza vaccine, whole virus07/27/2007measles mumps rubella (MMR) vaccine (M-M-R II, PRIORIX)02/10/2006,07/31/2002poliovirus vaccine, unspecified formulation 02/10/2006,07/31/2002,04/26/2001,01/24/2001tetanus diphtheria pertussis (Tdap) vaccine, age 7+ yr (ADACEL, BOOSTRIX)04/20/2015varicella (ANTONIA) vaccine (VARIVAX) 06/17/2008,07/31/2002 Family History RelationStatusCommentsOtherpaternal uncle has nasal CAPaternal Grandfatherlung CAPaternal Grandmotherbreast CA Social History Tobacco UseTypesPacks/DayYears UsedDateSmoking Tobacco: FormerCigarettesQuit: 2019Passive Smoke Exposure: PastSmokeless Tobacco: Never Tobacco Cessation:Counseling Given: Not Answered Alcohol UseStandard Drinks/WeekCommentsNot Currently0 (1 standard drink = 0.6 oz pure alcohol)Overall Financial Resource Strain (CARDIA)AnswerDate RecordedHow hard is it for you to pay for the very basics like food, housing, medical care, and heating?Not hard at all07/12/2023HQ-2AnswerDate RecordedPHQ-2 score4 01/29/2025Hunger Vital SignAnswerDate RecordedWithin the past 12 months, you worried that your food would run out before you got the money to buymore.Never true07/12/2023Within the past 12 months, the food you bought just didn't last and you didn't have money to get more.Never true07/12/2023RAPARE - TransportationAnswerDate RecordedIn the past 12 months, has lack of transportation kept you from medical appointments or from getting medications?No 07/12/2023In the past 12 months, has lack of transportation kept you from meetings, work, or from getting things needed for daily living?No07/12/2023 Housing Stability Vital SignAnswerDate RecordedIn the last 12 months, was there a time when you were not able to pay the mortgage or rent on time?No07/12/2023In the last 12 months, how many places have you lived?In the last 12 months, was there a time when you did not have a steady place to sleep or slept in ashelter (including now)?No07/12/2023rea Deprivation IndexAnswerDate RecordedNational Score (1-100), lower number is lower hqnr875104/24/2023State Score (1-10), lower number is lower amux3833Data from: https://www.neighborhoodatlas.medicine.[facility].edu/. Last address used for pwam[address]nj[address]04/24/2023CommentsNoSex and Gender Information ValueDate RecordedSex Assigned at BirthNot on fileLegal YhlHajzsk83/20/2023 3:11 PM EDTGender IdentityNot on fileSexual OrientationNot on file Last Filed Vital Signs Vital SignReadingTime TakenCommentsBlood Lfzisrpy831/76002/05/2025 1:17 PM EDT Mjkrn854002/05/2025 1:17 PM BFAGncggificlf86.6 ??C (97.8 ??F)07/31/2023 1:02 PM ESTRespiratory Jlaf178302/05/2025 1:17 PM EDTOxygen Gsgaufafdy76%02/05/2025 1:17 PM EDTInhaled Oxygen Concentration--Bzrkia03 kg (191 lb 12.8 oz)02/05/2025 1:17 PM ICEXbrztt094.7 cm (5' 8 )02/05/2025 1:17 PM EDTBody Mass Index29.16002/05/2025 1:17 PM EDT Plan of Treatment Health MaintenanceDue DateLast DoneCommentsPeds To Adult Transition Initial Iprnzibtrs29/10/2013Peds To Adult Transition Annual Frdjoogsua23/10/2015HPV Vaccine (1 - 3-dose series)2015HIV Difkrfthy92/10/2019Hepatitis C Hzxpjdjoq65/10/2019Cervical Cancer Areiosypn99/10/2022Covid-19 Vaccine ( season)2025Influenza Vaccine (#1), 07/27/2007 DTaP,Tdap,Td Vaccine (8 - Td or Tdap), 04/20/2015, 02/10/2006, Additional history existsHepatitis B WkdshpxVwdvpfgrl76/13/2002, 01/24/2001, 2000 Medical Devices ImplantedTypeAreaManufacturerDevice IdentifierShelf Expiration DateModel / Serial / LotGraft Infuse 18mm Large Ii Bovine Collagen Rhbmp-2 26mm Bone Absorbable - [id number] Implanted:Qty: 1 on 07/11/2023 by Mc De La Cruz MD at [facility]/A: Spine - ThoracicMEDTRONIC SOFAMOR [id number] / / [id number] Bone 30cc 1mm-4mm Range Granules Cancellous Crushed - [id number] Implanted:Qty: 1 on 07/11/2023 by Mc De La Cruz MD at [facility]/A: Spine - LumbarSEASPINE SALES LLC01/05/233444-2198-297 / [id number] / [id number] Liz 3 Titanium Set Scooby Spine - [id number] [facility]: Spine - Lumbar KEVIN [id number] / / Eduin Liz 3 6mm 480mm Spinal - [id number] Implanted:Qty: 2 [facility]/A: Spine - LumbarSTRYKER [id number] / / Screw Liz 3 Walden 6.5mm 50mm Bone Polyaxial Nonsterile Spine - [id number] Implanted:Qty: 1 on 07/11/2023 at [facility]/A: Spine - Lumbar KEVIN [id number] / / Screw Liz 3 Walden 6.5mm 55mm Bone Polyaxial Nonsterile Spine - [id number] [facility]:Q[facility]: Spine - Lumbar KEVIN [id number] / / Screw Liz 3 Walden 4.5mm 40mm Bone Polyaxial Nonsterile Spine - [id number] [facility]: [facility] - Lumbar KEVIN [id number] / / Screw Liz 3 5mm Titanium 35mm Bone Polyaxial Spine Thoracolumbar - [id number] Implanted:Qty: 2 on 07/11/2023 at [facility]/A: Spine - Lumbar KEVIN [id number] / / Screw Liz 3 5mm Titanium 40mm Bone Polyaxial Spine Thoracolumbar - [id number] Implanted:Qty: 8 on 07/11/2023 at [facility]/A: Spine - Lumbar KEVIN [id number] / / Screw Liz 3 6mm Titanium 45mm Bone Polyaxial Spine Thoracolumbar - [id number] Implanted:Qty[facility]: Spine - Lumbar KEVIN [id number] / / Screw Liz 3 Walden 6mm 40mm Bone Polyaxial Nonsterile Spine - [id number] Implanted:Qty: 2 on 07/11/2023 at [facility]/A: Spine - Lumbar KEVIN [id number] / / Screw Liz 3 Walden 6mm 45mm Bone Polyaxial Nonsterile Spine - [id number] Implanted:Qty: 1 on 07/11/2023 at [facility]/A: Spine - Lumbar KEVIN [id number] / / Screw Liz 3 Walden 6.5mm 45mm Bone Polyaxial Nonsterile Spine - [id number] Implanted:Qty: 2 on 07/11/2023 at [facility]/A: Spine - Lumbar KEVIN [id number] / / Insurance Care Teams Team MemberRelationshipSpecialtyStart DateEnd Date Bianka Woods MD [address] [place] [address] PCP - GeneralInternal Medicine06/16/23 Scott Jin, ENFORCEMENT OFFICER.[facility] [address] [place] [address] [address] [place] [address] ReferringFamily Medicine03/07/23
--- OUTSIDE RECORDS SUMMARY | 2025-08-07 12:27 | XMS_ITS | Encounter Summary ---
Author Organization [facility] Address [address] [place] [address] Care Team Providers Care Marbleizing Machine Tender Name Role Phone Unallocated, Noms Provider Primary Care Provi otis Encounter Details DateTypeDepartmentCare Team (Latest Contact Info)Bwtvszpzjuy07/11/2025amboo flowsheet RYLEY VINCENT [address] [place] [address] [place] [address] Stevenson Kiser DO [address] [place], [place] [address] Social History Tobacco UseTypesPacks/DayYears UsedDateSmoking Tobacco: NeverSmokeless Tobacco: NeverAlcohol UseStandard Drinks/WeekCommentsNever0 (1 standard drink = 0.6 oz pure alcohol)CommentsNoSex and Gender InformationValueDate RecordedSex Assigned at BirthNot on fileLegal EplLbveth02/15/2023 6:42 PM EDTGender Identity Not on fileSexual OrientationNot on filedocumented as of this encounter Plan of Treatment DateTypeDepartmentCare Team (Latest Contact Info)Ggxovnmpymu06/01/2025 11:30 AM ESTOffice Visit RYLEY VINCENT [address] [place] [address] Tamra Epstein PA [address] [place], [facility]11 documented as of this encounter Visit Diagnoses Not on filedocumented in this encounter Care Teams Team MemberRelationshipSpecialtyStart DateEnd Date Unallocated, [place] [address] PCP - GeneralFamily Medicine10/12/23documented as of this encounter
--- OUTSIDE RECORDS SUMMARY | 2025-08-07 12:27 | XMS_ITS | Encounter Summary ---
Author Organization [facility] Address [address] [place] [address] Care Team Providers Care Waiter/Waitress Take Out Name Role Phone Unallocated, Noms Provider Primary Care Provi otis Encounter Details DateTypeDepartmentCare Team (Latest Contact Info)Mlvelwpkwog51/12/2025linisync Result Encounter [facility] External Department Unsolicited Felipa Kiser DO [address] [place], [place] [address] Social History Tobacco UseTypesPacks/DayYears UsedDateSmoking Tobacco: NeverSmokeless Tobacco: NeverAlcohol UseStandard Drinks/WeekCommentsNever0 (1 standard drink = 0.6 oz pure alcohol)CommentsNoSex and Gender InformationValueDate RecordedSex Assigned at BirthNot on fileLegal GenJucnfi32/15/2023 6:42 PM EDTGender Identity Not on fileSexual OrientationNot on filedocumented as of this encounter Plan of Treatment DateTypeDepartpaul oliver memorial hospitalCare Team (Latest Contact Info)Zuaruqqvkrq08/01/2025 11:30 AM ESTOffice Visit RYLEY Ochoa OBGYMarvin [address] [phone] Tamra Epstein PA [address] [place], [facility]11 documented as of this encounter Procedures Procedure NamePriorityDate/TimeAssociated DiagnosisCommentsXR CHEST 2V109/29/2024 12:12 PM EST documented in this encounter Results * XR CHEST 2V (07/30/2025 12:12 PM EST)Anatomical RegionLateralityModalityOther Specimen (Source)Anatomical Location / LateralityCollection Method / Volume Collection TimeReceived Time07/30/2025 12:12 PM EST Narrative 07/30/2025 12:[address] [facility] ?[address] ? [place] [address] ?XRay Report ? Signed ? Patient: NITAAYDE L ?MR#: [id number] ?? : 2000 ?Acct:[id number] ?? Age/Sex: 24 / F ?ADM Date: 07/30/25 ?? Loc: PST ? Attending Dr: Felipa Kiser D.O. ? Ordering Physician: Felipa Kiser D.O. ?? Date of Service: 07/30/25 ?? Procedure(s): XR chest 2V ?? Accession Number(s): [id number] ? cc: Holley Nur NP; Felipa Kiser D.O. ? [facility] ? [address] [place] [address] ? [place] [address] ? Patient Name: ?? AYDE DENNIS ? MRN: [facility]:[id number] ? date: 2000 ?Sex: F ?? Assigned Patient Location: SURGOUT ?? Current Patient Location: SURGOUT ?? Accession/Order Number: [id number] ?? Exam Date: 07/30/2025 ??11:25 ?Report Date: [...] Dictation Location: RADIO-PC-02 ? Electronically authenticated by: [id number] ??Y ?? Date: 07/30/2025 ??12:12 ? Dictated By: ?Guillermina Lopez M.D. ? Signed By: ?11/12/25 1215 ? DD/DT: 07/30/ 1212 ? TD/TT: ? Layer Out: Procedure Note Radiology, Radiologist, - 07/30/2025 The [place] [id number] XRay Report Signed Patient: AYDE DENNIS LMR#: [id number] : 2000Acct:[id number] Age/Sex: 24 / FADM Date: 07/30/25 Loc: PST Attending Dr: Felipa Kiser D.O. Ordering Physician: Felipa Kiser D.O. Date of Service: 07/30/25 Procedure(s): XR chest 2V Accession Number(s): [id number] cc: Holley Nur NP; Felipa Kiser D.O. The [place] [id number] Patient Name: AYDE DENNIS MRN: [id number] date: 2000 Sex: F Assigned Patient Location: [facility] Current Patient Location: [facility] Accession/Order Number: [id number] Exam Date: 07/30/2025 11:25 Report Date: 07/30/2025 [...] Lopez M.D. 07/30/2025 12:12 PM Dictation Location: [place] [address] Electronically authenticated by: [id number] Y Date: 2:12 Dictated By: Guillermina Lopez M.D. Signed By:07/30/25 1215 DD/ 1212 TD/TT: Layer Out: Authorizing ProviderResult TypeResult StatusCorey Margi DOCLINISYNC IMAGINGFinal Result documented in this encounter Visit Diagnoses Not on filedocumented in this encounter Care Teams Team MemberRelationshipSpecialtyStart DateEnd Date Unallocated, Noms Provider, [address] [place] [address] PCP - GeneralFamily Medicine10/12/23documented as of this encounter
--- OUTSIDE RECORDS SUMMARY | 2025-08-07 12:28 | XMS_ITS | Encounter Summary ---
Author Organization [facility] Address [address] [place] [address] Care Team Providers Care Reporting Lead Name Role Phone Unallocated, Noms Provider Primary Care Provi otis Encounter Details DateTypeDepartmentCare Team (Latest Contact Info)Kwsabkshpwj14/13/2025bstract RYLEY VINCENT [address] [place] [address] Stevenson Kiser DO [address] [place], [place] [address] Social History Tobacco UseTypesPacks/DayYears UsedDateSmoking Tobacco: NeverSmokeless Tobacco: NeverAlcohol UseStandard Drinks/WeekCommentsNever0 (1 standard drink = 0.6 oz pure alcohol)CommentsNoSex and Gender InformationValueDate RecordedSex Assigned at BirthNot on fileLegal FbnVplbki78/15/2023 6:42 PM EDTGender Identity Not on fileSexual OrientationNot on filedocumented as of this encounter Plan of Treatment DateTypeDepartmentCare Team (Latest Contact Info)Hxvpeepqpfx36/01/2025 11:30 AM ESTOffice Visit RYLEY VINCENT [address] [place] [address] Tamra Epstein PA [address] [place], [facility]11 documented as of this encounter Visit Diagnoses Not on filedocumented in this encounter Care Teams Team MemberRelationshipSpecialtyStart DateEnd Date Unallocated, Noms ProviderMD [address] [place] [address] PCP - GeneralFamily Medicine10/12/23documented as of this encounter
[2025-08-07 12:33] LABS: Hematocrit 43.5 % (36.0-48.0); Hemoglobin 14.1 g/dL (12.0-16.0); Immature Granulocytes Abs Auto 0.02 10^3/uL (0.00-0.03); Immature Granulocytes Pct Auto 0.3 % (0.0-0.5); Lymphocytes Absolute Auto 2.3 10^3/uL (1.2-3.8); Mean Corpuscular HGB Conc 32.4 g/dL (29.9-35.2); Mean Corpuscular Hemoglobin 30.4 pg (26.7-34.0); Mean Corpuscular Volume 93.8 fL (81.0-99.0); Platelet Count 181 10^3/uL (150-450); Red Blood Count 4.64 10^6/uL (4.20-5.40); White Blood Count 7.1 10^3/uL (4.0-11.0)
--- OUTSIDE RECORDS SUMMARY | 2025-08-07 12:38 | XMS_ITS | CCD ---
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 Role Phone REYNOLDS, MONTY Unavailable Unavailable REYNOLDS, MONTY Unavailable [...] Unavailable Unavailable KELSI, LORETTA B Unavailable Unavailable VOSLER, DUNG S Unavailable Unavailable MARGI, DR LEO Admitting Unavailable MARGI, [...] MARGI, DR LEO Attending Unavailable REQUEST, DR NONE LISTED Primary Care Unavaila ble WEST, DR SANDEE May Consulting Unavailable MARGI, DR LEO Consulting Unavailable Britany HINES Primary Care Physician [phone] Christopher Hutson CNP Unavailable Bianka Woods MD Primary Care Provider [phone] Bianka WOODS Primary Care Physician Annabel CONFIGURATION DEVELOPER.Christopher ORDOÑEZ Unavailable [phone] Unallocated, [place] Provider Primary Care Provider Bianka Woods MD Primary Care Provider [phone] Ilya Patel Attending Unavailable Jacey Ponce Attending Unavailable Jacey Ponce Attending Unavailable Clare Vazquez Attending Unavailable Clare Vazquez Attending Unavailable Candelario Wilhelm Attending Unavailable Ilya Patel Attending Unavailable Ilya Patel Attending Unavailable RU, TIAGO Smith Attending Unavailable RU, TIAGO Smith Attending Unavailable RU, TIAGO Smith Attending Unavailable RU, TIAGO Smith Attending Unavailable ROBJOI, TIAGO Smith Attending Unavailable Jacey Ponce Attending Unavailable Jacey Ponce Attending Unavailable Jacey Ponce Attending Unavailable ROBJOI, TIAGO Bianka E Attending Unavailable ROBJOI, TIAGO Bianka E Attending Unavailable ROBJOI, TIAGO Bianka E Attending Unavailable Ponce, Jacey Leatha Attending Unavailable Rosario Jacey Leatha Attending Unavailable Britany HINES Attending Unavailable LEIDA NUR Primary Care Physician Jacey Ponce Attending Unavailable Jacey Ponce Attending Unavailable Jacey Ponce Attending Unavailable MANAS NUR Attending Unav ailable CIERSJABARI HOUGH-C LEIDA Fernandes Referring Unav ailable CIERSJABARI HOUGH-Riya Fernandes Admitting Unav ailable CIERSDONAL HOUGHP-C LEIDA R Attending Unav ailable Bianka WOODS Admitting Unavailable Bianka WOODS Attending Unavailable Bianka WOODS E Referring Unavailable JABARI NUR-Riya Fernandes Admitting Unav ailable CIERSDONAL HOUGHP-C LEIDA Fernandes Attending Unav ailable CIERSLO HOUGHC LEIDA Fernandes Attending Unav ailable FREDERSJABARI HOUGH-C LEIDA Fernandes Admitting Unav ailable Blaze Bailey Attending Unavailable LO NURC LEIDA Fernandes Attending Unav ailable CIERSLO HOUGHC LEIDA Fernandes Attending Unav ailable FREDERSJABARI HOUGH-Riya Fernandes Attending Unav ailable CIERSMANAS HOUGH Attending Unav ailable CIERSLO HOUGHC LEIDA Fernandes Attending Unav ailable Jacey Ponce [...] [place] Unavailable Unavailab Candelario Recio Attending Unavailable LEIDA NUR Attending UnavailLEIDA Shultz Attending UnavailLEIDA Shultz Attending UnavailCandelario Landrum Attending Unavailable Tiny Srivastava Attending Unavailable LEIDA NUR Attending Unavailbernadette e LEIDA NUR Attending LEIDA Lake Attending LEIDA Lake Attending LEIDA Lake Attending LEIDA [place] Referring Candelario Dickinson Attending Unavailable LEIDA NUR Attending LEIDA [place] Attending UnavailDEMETRIUS Daniels Attending JOSHUA Shaw Attending STEVENSON Vázquez Attending JOSHUA Shaw Referring STEVENSON Vázquez Attending Unavailable Allergies Allergy ClassificationReported Allergen(s)Allergy TypeDate of OnsetReaction(s) FacilityAmoxicillin / Clavulanate (1 source)Amoxicillin / Clavulanate; Translations: [amoxicillin-clavulanate]Drug AllergyVomiting (disorder)[facility] (20 sources)AMOXICILLIN-POT CLAVULANATE; Translations: [AMOXICILLIN-POT CLAVULANATE]Propensity to adverse reactions to drug (disorder)67-86-0683[facility] ([facility] source)cefdinirDrug Yhfwubo66-10-1004[facility] (20 sources)Amoxicillin / Clavulanate; Translations: [amoxicillin-clavulanate] Drug AllergyVomiting (disorder)[facility] (8 sources)cefdinirDrug Vshznmi32-22-0757[facility] Medications Current Medications MedicationDrug Class(es)DatesSig (Normalized)Sig (Original)acetaminophen 500 mg oral tablet (19 sources)Start: 44-69-5931ilur 2 tablets enteral route every six hours as neededacetaminophen (TYLENOL) 500 mg tablet 2 tablets by ORAL/FEEDING TUBE route every 6 hours as needed for pain. 07/15/2023 ActiveComment on above:2 tablets by ORAL/FEEDING TUBE route every 6 hours as needed for pain.acetaminophen 325 mg / oxyCODONE hydrochloride 7.5 mg oral tablet (17 sources)Opioid AgonistStart: 37-03-3551Cumzhaoa 7.5 mg-325 mg oral tablet 1 tab(s), Oral, BID, 60 tab(s), Refill(s) 0, [id number],168, cm, 03/06/25 11:42:00 EDT, Height/Length Dosing, 83.1, kg, 03/06/25 11:42:00 EDT, Weight Dosing Start Date: 04/14/25 Status: Ordered Quantity: 60.0 Unit: tab(s) Repeat number: 1 Indications: Painin thoracic spine; Scoliosis, unspecified;Start: 35-36-5747Kdqlabtj 7.5 mg-325 mg oral tablet 1 tab(s), Oral, Daily, 30 tab(s), Refill(s) 0, [id number], 168, cm, 03/06/25 11:42:00 EDT, Height/Length Dosing, 83.1, kg, 03/06/25 11:42:00 EDT, Weight Dosing Start Date: 03/06/25 Status: Ordered Quantity: 30.0 Unit: tab(s) Repeat number: 1 Indications: Pain in thoracic spine; Scoliosis, unspecified;Start: 39-16-6629Iftmdbgs 7.5 mg-325 mg oral tablet 1 tab(s), Oral, Daily, 30 tab(s), Refill(s) 0, [id number] , 172, cm, 01/22/25 15:54:00 EDT, Height/Length Dosing, 88.7, kg, 01/22/25 15:54:00 EDT, Weight Dosing Start Date: 02/17/25 Status: Ordered Quantity: 30.0 Unit: tab(s) Repeat number: 1 Indications: Pain in thoracic spine; Scoliosis, unspecified;Start: 64-19-2510bdsalkgvbkyej-oxycodone 325 mg-5 mg Tab Refill(s) 0 Start Date: 07/20/23 Status: OrderedStart: 49-58-0049qzxgdsvbdklbf-oxycodone 325 mg-5 mg Tab 1 tab(s), Oral, q4hr for pain, 8 tab(s), Refill(s) 0, [id number], 175.3, cm, 02/08/23 18:27:00 EDT, Height/Length Dosing, 93, kg, 02/08/23 18:27:00 EDT, Weight Dosing Start Date: 02/08/23 [...] oral tablet (20 sources)Central Nervous System StimulantStart: 46-65-1992Ldxsmota 10 mg oral tablet 10 mg, 1 tab(s), Oral, qAM, 30 tab(s), Refill(s) 0, 30 days, [id number], 172.7, cm, 05/28/25 7:37:00 EDT, Height/Length Dosing, 82.3, kg, 05/28/25 7:37:00 EDT, Weight Dosing Start Date: 06/23/25 Status: Ordered Quantity: 30.0 Unit: tab(s) Repeat number: 1 Indications: Attention-deficit hyperactivity disorder, unspecified type;Start: 12-86-7435Gtpwbqsd 10 mg oral tablet 10 mg, 1 tab(s), Oral, qAM, 30 tab(s), Refill(s) 0, 30 days, [id number], 172.7, cm, 04/29/25 19:05:00 EDT, Height/Length Dosing, 80.6, kg, 04/29/25 19:05:00 EDT, Weight Dosing Start Date: 05/22/25 Status: Ordered Quantity: 30.0 Unit: tab(s) Repeat number: 1 Indications: Attention-deficit hyperactivity disorder, unspecified type;Start: 02-47-3978Lsvhrixi 10 mg oral tablet 10 mg, 1 tab(s), Oral, qAM, 30 tab(s), Refill(s) 0, [id number], 1 68, cm, 03/06/25 11:42:00 EDT, Height/Length Dosing, 83.1, kg, 03/06/25 11:42:00 EDT, Weight DosingStart Date: 04/14/25 Status: Ordered Quantity: 30.0 Unit: tab(s) Repeat number: 1 Indications: Attention-deficit hyperactivity disorder, unspecified type;Start: 71-52-9434Nyerfozm 10 mg oral tablet 10 mg, 1 tab(s), Oral, qAM, 30 tab(s), Refill(s) 0, [id number], 168, cm, 03/06/25 11:42:00 EDT, Height/Length Dosing, 83.1, kg, 03/06/25 11:42:00 EDT, Weight DosingStart Date: 03/18/25 Status: Ordered Quantity: 30.0 Unit: tab(s) Repeat number: 1 Indications: Attention-deficit hyperactivity disorder, unspecified type;Start: 91-27-0341Udcnqovs 10 mg oral tablet 10 mg, 1 tab(s), Oral, qAM, 30 tab(s), Refill(s) 0, [id number], 172, cm, 01/22/25 15:54:00 EDT, Height/Length Dosing, 88.7, kg, 01/22/25 15:54:00 EDT, Weight DosingStart Date: 02/19/25 Status: Ordered Quantity: 30.0 Unit: tab(s) Repeat number: 1 Indications: Attention-deficit hyperactivity disorder, unspecified type;Start: 10-29-2024 take 1 capsule by mouth in the morning, then take 1 capsule by mouth every twenty-four hoursamphetamine-dextroamphetamine XR (Adderall XR) 10 MG 24 hr capsule Take 10 mg by mouth in the morning. 10/29/2024 ActiveStart: 09-24-2024 Adderall 10 mg oral tablet 10 mg, 1 tab(s), Oral, BID, 60 tab(s), Refill(s) 0, [id number], 172, cm, 09/24/24 8:39:00 EST, Height/Length Dosing, 95.8, kg, 09/24/24 8:39:00 EST, Weight Dosing Start Date: 09/24/24 Status: OrderedStart: 36-09-0582Nzvmniim 5 mg oral tablet 5 mg, 1 tab(s), Oral, BID, 60 tab(s), Refill(s) 0, [id number], 172.7, cm, 08/29/24 14:55:00 EST, Height/Length Dosing, 98.2, kg, 08/29/24 14:55:00 EST, Weight DosingStart Date: 08/29/24 Status: Orderedazithromycin 250 mg oral tablet (2 sources)Macrolide AntimicrobialStart: 05-28-2025 End: 65-83-2261Dbjkjdboi 250 mg Tab = 1 packet(s), Oral, As Directed, as directed on package labeling, X 5 day(s),# 6 tab(s), Refills(s) 0, Pharmacy: [id number], 172.7, cm, 05/28/25 7:37:00 EDT, Height/Length Dosing, 82.3, kg, 05/28/25 7:37:00 EDT, Weight Dosing Start Date: 05/28/25 Stop Date: 06/02/25 Status: Ordered Quantity: 6.0 Unit: tab(s) Repeat number: 1 Indications: Bronchitis, not specified as acute or chronic;Start: 05-13-2025 End: 60-90-6932Vcxzutjln 250 mg Tab = 1 packet(s), Oral, As Directed, as directed on package labeling, X 5 day(s),# 6 tab(s), Refills(s) 0, Pharmacy: [facility]/pharmacy [id number], 172.7, cm, 04/29/25 19:05:00 EDT, Height/Length Dosing, 80.6, kg, 04/29/25 19:05:00 EDT, Weight Dosing Start Date: 05/13/25 Stop Date: 05/18/25 Status: Ordered Quantity: 6.0 Unit: tab(s) Repeat number: 1 Indications: Acute pharyngitis, unspecified;bacitracin 0.5 unt/mg topical ointment (1 source)Start: 05-25-2025 End: 89-44-4039yzgxkbxbrj Top 500 units/g Oint 30 gram 1 john, Topical, QID for 5 day(s), 15 gm, Refill(s) 0, [id number], 172.7, cm, 05/25/25 14:28:00 EDT, Height/Length Dosing, 81, kg, 05/25/25 14:28:00 EDT, Weight Dosing Start Date: 05/25/25 Stop Date: 05/30/25 Status: Ordered Quantity: 15.0 Unit: g Repeat n umber: 1cane (1 source)Start: 17-95-5093cbsuqzgdtg 500 mg oral capsule (2 sources)Cephalosporin AntibacterialStart: 05-25-2025 End: 37-47-0057ykji 1 capsule by mouth every eight hoursKeflex 500 mg Cap 500 mg = 1 cap(s), Oral, q8hr, X 5 day(s), # 15 cap(s), Refills(s) 0, Pharmacy: [facility]/pharmacy #[id number], 172.7, cm, 05/25/25 14:28:00 EDT, Height/Length Dosing, 81, kg, 05/25/25 14:28:00EDT, Weight Dosing Start Date: 05/25/25 Stop Date: 05/30/25 Status: Ordered Quantity: 15.0 Unit: cap(s) Repeat number: 1Start: 02-13-2024 End: 94-12-5016zdyn 1 capsule by mouth every twelve hoursKeflex 500 mg Cap 500 mg = 1 cap(s), Oral, q12hr, X 7 day(s), # 14 cap(s), Refills(s) 0, Pharmacy: [facility]/pharmacy #[id number], 172.7, cm, 02/13/24 12:50:00 EDT, Height/Length Dosing, 97, kg, 02/13/24 12:50:00 EDT, Weight Dosing Start Date: 02/13/24 Stop Date: 02/20/24 Status: OrdereddiazePAM 10 mg oral tablet (6 sources)BenzodiazepineStart: 89-70-8754dfol 1 tablet by mouth onceValium 10 mg Tab = 1 tab(s), Oral, Once, Refills(s) 0 Start Date: 01/20/25 Status: Ordered Repeat number: 1Start: 80-76-9765ogrd 1 tablet by mouth once as needed for anxietyValium 10 mg Tab 10 mg = 1 tab(s), Oral, Once, PRN for anxiety, # 1 tab(s), Refills(s) 0, Pharmacy:[facility]/pharmacy [id number], 172, cm, 09/24/24 8:39:00 EST, Height/Length Dosing, 95.8, kg, 09/24/24 8:39:00EST, Weight Dosing Start Date: 09/24/24 Status: Ordereddiclofenac sodium 75 mg delayed release oral tablet (18 sources)Nonsteroidal Anti-inflammatory DrugStart: 73-44-0001uaoj 1 tablet by mouth twice dailydiclofenac sodium 75 mg Oral EC Tab 75 mg = 1 tab(s), Oral, BID, # 60 tab(s), Refills(s) 11, Pharmacy: [facility]/pharmacy #[id number], 175.3, cm, 04/11/23 15:31:00 EDT, Height/Length Dosing, 93.3, kg, 04/11/23 15:31:00 EDT, Weight Dosing Start Date: 05/16/23 Status: OrderedStart: 06-28-4004otbf 1 tablet by mouth every twelve hoursdiclofenac, EC, (VOLTAREN) 75 mg EC tablet Take 1 tablet by mouth every 12 hours. 0 04/18/2023 ActiveComment on above:Take 1 tablet by mouth every 12 hours.docusate sodium 50 mg / sennosides, mcfp 8.6 mg oral tablet (19 sources)Start: 19-41-2603wthl 2 tablets by mouth twice daily in the evening senna-docusate (SENNA-S) 8.6-50 mg per tablet Take 2 tablets by mouth two times a day. 20 tablet 07/15/2023 2:28 PM EDT 07/15/2023 ActiveComment on above:Take 2 tablets by mouth two times a day.doxepin 3 mg oral tablet (2 sources)Tricyclic AntidepressantStart: 23-18-0777vpbf 1 tablet by mouth once daily at bedtimedoxepin 3 mg oral tablet 3 mg = 1 tab(s), Oral, Once a day (at bedtime), # 30 tab(s), Refills(s) 1,Pharmacy: [facility]/pharmacy #[id number], 172.7, cm, 05/28/25 7:37:00 EDT, Height/Length Dosing, 82.3, kg, 05/28/25 7:37:00 EDT, Weight Dosing Start Date: 05/28/25 Status: Ordered Quantity: 30.0 Unit: tab(s) Repeat number: 2 Indications: Insomnia, unspecified;escitalopram 10 mg oral tablet (20 sources)Serotonin Reuptake InhibitorStart: 99-14-4477Klbnjiw 20 mg Tab 20 mg = 1 tab(s), Oral, Daily, Take with 10mg tab for total daily dose of 30mg, #90 tab(s), Refills(s) 3, Pharmacy: [facility]/pharmacy #[id number], 168, cm, 03/06/25 11:42:00 EDT, Height/Length Dosing, 83.1, kg, 03/06/25 11:42:00 EDT, Weight Dosing Start Date: 04/14/25 Status: Ordered Quantity: 90.0 Unit: tab(s) Repeat number: 4 Indications: Depression, unspecified;Start: 11-25-4658erenhrpcuveu oxalate (LEXAPRO) 20 mg tablet Take 30 mg by mouth every afternoon. 04/11/2023 Active Start: 12-21-9125keatzdtesosi 10 mg Tab 10 mg = 1 tab(s), Oral, Daily, Take with 20mg tab for total daily dose of 30mg, # 90 tab(s), Refills(s) 3, Pharmacy: [facility]/pharmacy #[id number], 168, cm, 03/06/25 11:42:00 EDT, Height/Length Dosing, 83.1, kg, 03/06/25 11:42:00 EDT, Weight Dosing Start Date: 04/14/25 Status: Ordered Raj ntity: 90.0 Unit: tab(s) Repeat number: 4Start: 88-71-0095vbvo 1 tablet by mouth once dailyLexapro 5 mg oral tablet 5 mg = 1 tab(s), Oral, Daily, # 30 tab(s), Refills(s) 5, Pharmacy: [facility]/pharmacy #[id number], 180, cm, 04/21/22 15:10:00 EDT, Height/Length Dosing, 93.1, kg, 04/21/22 15:10:00 EDT, Weight Dosing Start Date: 04/21/22 Status: OrderedComment on above:Take 1 tablet by mouth every afternoon. Ethinyl Estradiol / Ferrous fumarate / Norethindrone (20 sources)EstrogenStart: 96-45-1851okva 1 tablet by mouth once daily in the morningAurovela FE 1/20 1-20 MG-MCG tablet Indications: control counseling TAKE 1 TABLET BY MOUTH EVERY DAY IN THE MORNING 84 tablet 07/09/2025 Active Start: 55-48-8392drtewqmrmdazk-ethinyl estradiol (Aurovela FE 10/07) 1-20 MG-MCG tablet Indications: control counseling TAKE 1 TABLET BY MOUTH EVERY DAY IN THE MORNING 84 tablet 03/28/2025 ActiveStart: 67-55-1333wtbtaddcwcrqe-ethinyl estradiol (Junel FE 10/07) 1-20 MG-MCG tablet Indications: control counse ling Take 1 tablet by mouth in the morning. 28 tablet 12 04/15/2024 ActiveStart: 66-55-8180Fuber Fe 1/20 oral tablet Refill(s) 0 Start Date: 07/20/23 Status: OrderedStart: 62-15-9392cldf 1 tablet by mouth once daily in the morningJunel FE /20 1-20 MG-MCG tablet Indications: control counseling TAKE 1 TABLET BY MOUTH EVERYDAY IN THE MORNING 28 tablet 12 04/26/2023 ActiveStart: 04-21-2022 take 1 tablet by mouth once dailyJunel Fe 1/20 oral tablet TAKE 1 TABLET BY MOUTH EVERY DAY Start Date: 04/21/22 Status: Ordered Repeat number: 1Start: 89-44-0756psvv 1 tablet by mouth once daily, then take 0.05 tablet by mouth once Norethin Caden-Eth Estrad-FE (10/07, ,) 1 mg-20 mcg (21)/75 mg (7) per tablet TAKE 1 TABLETBY MOUTH EVERY DAY 04/21/2022 ActiveStart: 94-29-2500jrbv 1 tablet by mouth once daily, then take 0.05 tablet by mouth onceNorethin Caden-Eth Estrad-FE (10/07, ,) 1 mg-20 mcg (21)/75 mg (7) per tablet TAKE 1 TABLETBY MOUTH EVERY DAY 0 04/21/2022 ActiveComment on above: TAKE 1 TABLET BY MOUTH EVERY DAYEthinyl Estradiol / Levonorgestrel (6 sources)Progestin, Estrogen, Progestin-containing Intrauterine DeviceStart: 36-74-7527eenl 1 tablet by mouth once daily, then take 1 tablet by mouth once dailylevonorgestrel-ethinyl estradiol (Jolessa) 0.15-0.03 MG tablet Indications: Dysmenorrhea , Pelvic pain in female , Menorrhagia with irregular cycle Take 1 tablet by mouth Daily Take 1 tablet by mouthdaily 84 tablet 3 04/21/2025 Active Start: 04-21-2025 End: 50-97-8344ldqy 1 tablet by mouth once daily, then take 1 tablet by mouth once dailylevonorgestrel-ethinyl estradiol (Jolessa) 0.15-0.03 MG tablet Indications: Dysmenorrhea , Pelvic pain in female , Menorrhagia with irregular cycle Take 1 tablet by mouth Daily Take 1 tablet by mouthdaily 84 tablet 3 04/21/2025 07/14/2025 Activefluocinolone acetonide 0.25 mg/ml topical cream (1 source)CorticosteroidStart: 22-03-8437bqfsjaqrtywr Top 0.025% Crm 1 john, Topical, Daily, 60 gram, Refill(s) 1, apply small amount to warts daily and cover with dry dressing., [facility]/pharmacy #[id number], 172, cm, 09/24/24 8:39:00 EST, Height/Length Dosing, 95.8, kg, 09/24/24 8:39:00 EST, Weight Dosing Start Date: 10/07/24 Status: Orderedgabapentin 300 mg oral capsule (20 sources)Anti-epileptic AgentStart: 43-88-4409oqezatemsg 100 mg Cap 100 mg = 1 cap(s), Oral, TID, take 100mg capsule with 300mg capsule to = 400mg po TID, # 90 cap(s), Refills(s) 11, Pharmacy: [facility]/pharmacy #[id number], 168, cm, 03/06/25 11:42:00 EDT, Height/Length Dosing, 83.1, kg, 03/06/25 11:42:00 EDT, Weight Dosing Start Date: 03/06/25 Status: Ordered Quantity: 90.0 Unit: cap(s) Repeat number: 12 Indications: Polyneuropathy, unspecified; Unspecified injury at unspecified level of cervical spinal cord, initial encounter; Other muscle spasm; Scoliosis, unspecified;Start: 15-82-0431xqii 1 capsule by mouth in the morning, then take 1 capsule by mouth in the evening, then take 1 capsule by mouth at bedtimegabapentin (Neurontin) 300 MG capsule Take 300 mg by mouth in the morning and 300 mg in the eveningand 300 mg before bedtime. 11/27/2024 ActiveStart: 08-92-5138mihu 1 capsule by mouth three times dailygabapentin 100 mg Cap 100 mg = 1 cap(s), Oral, TID, # 90 cap(s), Refills(s) 3, Pharmacy: [facility]/pharmacy #[id number], 172, cm, 09/24/24 8:39:00 EST, Height/Length Dosing, 95.8, kg, 09/24/24 8:39:00 EST, Weight Dosing Start Date: 10/17/24 Status: Ordered handicap placard (1 source)Start: 91-20-4147antwBRXmkfq hydrochloride 25 mg oral tablet (20 sources)AntihistamineStart: 68-64-7496tcbd 1 tablet by mouth four times daily as needed for anxietyhydrOXYzine hydrochloride 25 mg Tab 25 mg = 1 tab(s), Oral, QID, PRN for anxiety, # 40 tab(s), Refills(s) 4, Pharmacy: [facility]/pharmacy #[id number], 172, cm, 01/22/25 15:54:00 EDT, Height/Length Dosing, 88.7, kg, 01/22/25 15:54:00 EDT, Weight Dosing Start Date: 03/05/25 Status: Ordered Quantity: 40.0 Unit: tab(s) Repeat number: 5 Indications: Anxiety disorder, unspecified;Start: 50-65-2937oyyb 1 tablet by mouth every six hours as neededhydrOXYzine HCl (Atarax) 25 MG tablet Take 25 mg by mouth every 6 (six) hours if needed 02/10/2023 ActiveStart: 67-59-3889icpj 1 tablet by mouth four times daily as needed for anxietyhydrOXYzine hydrochloride 25 mg Tab 25 mg = 1 tab(s), Oral, QID, PRN for anxiety, # 40 tab(s), Refills(s) 4, Pharmacy: [facility]/pharmacy #[id number], 172, cm, 11/27/24 10:44:00 EDT, Height/Length Dosing, 90.7, kg, 11/27/24 10:44:00 EDT, Weight Dosing Start Date: 11/27/24 Status: Ordered Quantity: 40.0 Unit: tab(s) Repeat number: 5 Indications: Anxiety disorder, unspecified;Start: 84-63-4031xzim 1 tablet by mouth four times daily as needed for anxiety hydrOXYzine hydrochloride 25 mg Tab 25 mg = 1 tab(s), Oral, QID, PRN for anxiety, # 40 tab(s), Refills(s) 0, Pharmacy: [facility]/pharmacy #[id number], 180, cm, 05/24/22 15:16:00 EDT, Height/Length Dosing, 90.2, kg, 05/24/22 15:16:00 EDT, Weight Dosing Start Date: 05/24/22 Status: OrderedComment on above:TAKE 1 TABLET BY MOUTH 4 TIMES A DAY NEEDED FOR ANXIETYibuprofen 800 mg oral tablet (20 sources)Nonsteroidal Anti-inflammatory DrugStart: 43-11-8844uoqw 1 tablet by mouth every eight hours as needed for painibuprofen 800 mg Tab 800 mg = 1 tab(s), Oral, q8hr, PRN Pain/Fever, # 30 tab(s), Refills(s) 0, [id number] 172.7, cm, 04/29/25 19:05:00 EDT, Height/Length Dosing, 80.6, kg, 04/29/2519:05:00 EDT, Weight Dosing Start Date: 04/29/25 Status: Ordered Quantity: 30.0 Unit: tab(s) Repeat number: 1Start: 19-49-5061fype 1 tablet by mouth every eight hours as neededibuprofen (MOTRIN) 800 mg tablet Take 800 mg by mouth every 8 hours as needed. FOR PAIN. 0 01/02/2023 ActiveStart: 03-02-2022 End: 68-78-0917qzti 1 tablet by mouth every twelve hoursibuprofen 800 mg Tab 800 mg = 1 tab(s), Oral, q12hr, X 10 day(s), # 20 tab(s), Refills(s) 1, Pharmacy: [facility]/pharmacy #[id number], 180, cm, 03/02/22 16:05:00 EDT, Height/Length Dosing, 93, kg, 03/02/22 16:05:00 EDT, Weight Dosing Start Date: 03/02/22 Stop Date: 03/22/22 Status: OrderedComment on above:Take 800 mg by mouth every 8 hours as needed. FOR PAIN.imiquimod 50 mg/ml topical cream (4 sources)Start: 94-69-8990ktnba 1 [IU] topically twice dailyimiquimod Top 5% Crm 1 john, Topical, BID, 24 EA, Refill(s) 1, [facility]/pharmacy #[id number], 172, cm, 01/08/2513:59:00 EDT, Height/Length Dosing, 88.2, kg, 01/08/25 13:59:00 EDT, Weight Dosing Start Date: 01/16/25 Status: Ordered Quantity: 24.0 Unit: EA Repeat number: 2 Indications: Viral wart, unspecified;Start: 09-24-2024 End: 22-51-5449trohfubft Top 5% Crm 1 john, Topical, Bedtime for 6 week(s), 24 EA, Refill(s) 1, [facility]/pharmacy #[id number],172, cm, 09/24/24 8:39:00 EST, Height/Length Dosing, 95.8, kg, 09/24/24 8:39:00 EST, Weight Dosing Start Date: 09/24/24 Stop Date: 12/17/24 Status: Orderedloratadine 10 mg oral tablet (3 sources)Start: 29-07-8495dbal 1 tablet by mouth once dailyClaritin 10 mg Tab 10 mg = 1 tab(s), Oral, Daily, # 30 tab(s), Refills(s) 11, Pharmacy: [facility]/pharmacy #[id number], 172.7, cm, 04/29/25 19:05:00 EDT, Height/Length Dosing, 80.6, kg, 04/29/25 19:05:00 EDT, Weight Dosing Start Date: 05/13/25 Status: Ordered Quantity: 30.0 Unit: tab(s) Repeat number: 12 Indications: Allergy, unspecified, initial encounter;LORazepam 1 mg oral tablet (1 source)BenzodiazepineStart: 07-17-2023 End: 14-69-5175veze 1 tablet by mouth three times dailyAtivan 1 mg Tab 1 mg = 1 tab(s), Oral, TID, X 3 day(s), # 9 tab(s), Refills(s) 0, [id number] 172.7, cm, 07/17/23 13:52:00 EDT, Height/Length Dosing, 95.5, kg, 07/17/23 13:52:00 EDT, Weight Dosing Start Date: 07/17/23 Stop Date: 07/20/23 Status: Orderedmeloxicam 15 mg oral tablet (16 sources)Nonsteroidal Anti-inflammatory DrugStart: 49-03-0421njemgjuom 15 mg Tab Refills(s) 0 Start Date: 07/20/23 Status: OrderedStart: [id number] 1 tablet by mouth oncemeloxicam (MOBIC) 15 mg tablet Take 1 tablet by mouth every afternoon. 0 04/16/2023 ActiveComment on above:Take 1 tablet by mouth every afternoon.methocarbamol 750 mg oral tablet (20 sources)Muscle RelaxantStart: [id number] 1 tablet by mouth every six hours as neededmethocarbamol (ROBAXIN) 750 mg tablet Take 1 tablet by mouth every 6 hours as needed. 90 tablet 07/15/2023 2:28 PM EDT 07/15/2023 Active Start: [id number] 1 tablet by mouth twice daily as needed for painRobaxin 500 mg Tab 500 mg = 1 tab(s), Oral, BID, PRN Muscle pain, # 30 tab(s), Refills(s) 0, [id number], [facility], cm, 07/06/22 17:07:00 EDT, Height/Length Dosing, 91.3, kg, 07/06/22 17:07:00 EDT, Weight Dosing Start Date: 08/26/22 Status: OrderedStart: [id number] 1 tablet by mouth twice daily as needed for painRobaxin 500 mg Tab 500 mg = 1 tab(s), Oral, BID, PRN Muscle pain, # 30 tab(s), Refills(s) 0, [facility] [id number], cm, 07/06/22 17:07:00 EDT, Height/Length Dosing, 91.3, kg, 07/06/22 17:07:00 EDT, Weight Dosing Start Date: 07/06/22 Status: OrderedComment on above:Take 1 tablet by mouth every 6 hours as needed.methylPREDNISolone 4 mg oral tablet (1 source)CorticosteroidStart: 05-28-2025 End: 49-91-8505Haehgd 4 mg Tab = 1 packet(s), Oral, As Directed, as directed on package labeling, X 6 day(s), # 21tab(s), Refills(s) 0, Pharmacy: [facility]/pharmacy #[id number], 172.7, cm, 05/28/25 7:37:00 EDT, Height/Length Dosing, 82.3, kg, 05/28/25 7:37:00 EDT, Weight Dosing Start Date: 05/28/25 Stop Date: 06/03/25 Status: Ordered Quantity: 21.0 Unit: tab(s) Repeat number: 1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 [facility]???S Terry (more content not included)...[facility] HospitalAmbulatory Visit Summaryon [id number] Visit SummaryAmbulatory Visit Summary YANETH DENNIS Leatha [...] stenosis, No, No, Scoliosis, pp_set_radiology_subspecialty, Robert - Neal CT Spine Thoracic w/o Contrast, 06/26/25, Routine, Order for future visit, Transport Mode: Ambulatory, Reason: Spinal stenosis, No, No, Scoliosis, pp_set_radiology_subspecialty, Robert - Neal Medications What How Much When Why Instructions [...] signed up for this yet, please contact [employer] at [phone] to get signed up today. Language Information Language assistance services are available as needed. [facility] Medicine Office/Clinic Noteon 83-71-4484Xddswd Medicine Office/Clinic NoteFaholyoke medical center Medicine Office/Clinic Note Chief Complaint F/U on [...] done so she can have them at [facility]. Otherwise she has no additional concerns or [...] qPM, # 90 tab(s), Refills(s) 2, Pharmacy: [facility]/pharmacy #[id number], 168, cm, 03/06/25 11:42:00 EDT, [...] 1 tab(s), Oral, q8hr, PRN Junel Fe 10/07 oral tablet Lexapro 20 [...] By: BECK MALAGON, MIRI\.br\Date and Time Signed: 06/26/25 12:34 EDTUS PELVIC COMPLETE W/ TVon [id number] PELVIC COMPLETE W/ TVFINDINGS: Uterus 9.4 x [...] IF INDICATED No LMP recorded.Ambulatory Visit Summaryon [id number] Visit Summary Ambulatory Visit Summary DARLENE DENNISGILBERT Zhang :2000 Visit Date:05/28/2025 Ambulatory Visit Instructions Your Diagnosis Foot laceration Bronchitis, Bronchitis BMI 27.0-27.9,adult Never used tobacco Insomnia, Insomnia Your Care Team Attending Physician - MIRI MAX Primary Care Physician - MIRI MXA This Is Your Medications List acetaminophen-oxycodone (Percocet [...] as directed on package labeling Pickup at [facility]/pharmacy #[id number] New doxepin (doxepin 3 mg oral tablet) 1 Tablets By Mouth Once a day (at bedtime) Insomnia Refills:1 Pickup at [facility]/pharmacy #6173 New methylPREDNISolone (Medrol 4 mg Tab) 1 Packets By Mouth As Directed Bronchitis Duration: 6 Daysas directed on package labeling Pickup at [facility]/pharmacy #6173 Unchanged acetaminophen-oxycodone (Percocet 7.5 mg-325 mg [...] (in the evening) Muscle spasm Pharmacy Information [facility]/pharmacy #[id number]: [address], [place] [phone] Allergies Augmentin (Vomiting) Problems Ongoing - Any [...] about your office visit. Juany (more content notincluded)...[facility]/Clinic Noteon 88-46-2242K[facility]mic Medicine Office/Clinic NoteFaholyoke medical center Medicine Office/Clinic Note Chief Complaint ER F/U HPI Staff TCM: Hospital: [facility] Admission date: 05/25/25 Discharge date: 05/25/25 Symptoms the patient presented with: Left foot pain after cutting it on metal strip Current concerns: No concerns only came per [facility] telling patient she HAD to F/U History [...] day(s), # 6 tab(s), Refills(s) 0, [id number], 172.7, cm, 05/28/25 7:37:00 EDT, Height/Length Dosing, 82.3, kg, 05/28/25 7:37:00 EDT, Weight Dosing methylPREDNISolone, = 1 packet(s), Oral, As Directed, as directed on package labeling, X 6 day(s), # 21 tab(s), Refills(s) 0, [id number], 172.7, cm, 05/28/25 7:37:00 EDT, Height/Length [...] bedtime), # 30 tab(s), Refills(s) 1, Pharmacy: [facility]/pharmacy #[id number], 172.7, cm, 05/28/25 7:37:00 EDT, [...] Time Signed: 05/28/25 08:37 EDTED Clinical Summaryon [id number] Clinical SummaryED Clinical Summary [place] [id number] ED Clinical Summary Person Information Name: YANETH DENNIS Tyra/[facility]_[place] Age: 24 Years : 2000 Sex: Female Language: [place] PCP: MIRI MAX Marital Status: Single Visit [...] 05/25/2025 16:10:41 05/25/2025 16:10:41 05/25/2025 16:10:41 ADDRESS: [address] [place] [phone] PHYS DOC NOTES: MEDICAL INFORMATION: Prescriptions Given: New Medications [facility]/pharmacy #[id number], [address], [place] [phone], [phone] bacitracin topical (bacitracin Top 500 units/g Oint 30 gram) 1 Application Topical 4 times a day for 5 Days. Refills: 0. cephalexin (Keflex 500 mg Cap) 1 Capsules By Mouth every 8 hours for 5 Days. Refills: 0. Medications to Continue Taking That Have Changed [facility]/pharmacy #6173, [address], [place] [phone], [phone] START: ondansetron (Zofran ODT 4 mg Tab-Dis) [...] Adult Follow up: With: Address: When: LEIDA BECK In 3 days 05/28/2025 Comments: Call to [...] worsening symptoms. DIAGNOSIS: Laceration of sole of footOhioHealth Hardin Memorial Hospital CenterED Note-Nursingon 68-44-1213HZ Note-NursingED Note-Nursing This nurse cleaned wound on left foot with sterile solution, wrapped wound with nonadherent pad, gauize and cobane per Rosetta AGUIAR. No drainage noted, pt denies complaints of pain or discomfort.[facility] Note-NursingED Note-Nursing this nurse irrigated left foot wound with sterile water, no drainage noted at wound site, pt deniesc/o pain at present.[facility] Note-Physicianon [id number] Note-PhysicianED Note-Physician Basic Information Time Seen: Tiffani RAMOSRosettaRachelle 05/25/2025 14:34 Chief Complaint patient presents with [...] PRN Follow-up With When Contact Information LEIDA NUR In 3 days 05/28/2025 EDT Additional Instructions: [...] Patient seen and evaluated by the physician litigation legal assistant. Attending physician was present in (more content not included)...[facility] Comment on above:Result Comment: Electronically Signed By: Rosetta Nixon PA-C\.br\Date and Time Signed: 05/25/2516:02 EDT\.br\Electronically Co-Signed By: Candelario Wilhelm DO\.br\Date and Time Co-Signed: 05/25/2516:02 EDTED Patient Summaryon [id number] Patient SummaryED Patient Summary [place] [address] Patient Discharge Instructions Person Information Name: YANETH DENNIS Age: 24 Years Arrival Date: 05/25/2025 14:19:13 Discharge Diagnosis: Laceration of sole of foot Primary Care Physician: MIRI MAX Provider Information Primary Provider: Candelario Wilhelm DO Advanced Board Operator:Rosetta Nixon PA-C The exam and treatment you received in the Emergency Department were for an urgent problem and are not intended as complete care. It is important that you follow up with a doctor, nurse practitioner,or physician???s litigation legal assistant for ongoing care. If your symptoms become worse or you do not improve asexpected and you are unable to reach your usual health care provider, you should return to the Emergency Department. We are available 24 hours a day. YANETH DENNIS has been given the following list of patient education materials, prescriptions and follow-up instructions: Follow-up Instructions: With: Address: When: LEIDA NUR In 3 days 05/28/2025 Comments: Call to [...] opioids can be used to help relieve ucbwnuio-zl-oafscw pain and are often prescribed following a [...] content not included)...[facility] HospitalC Urineon 78-64-0039Ablrngbd identified Cx Nom (U)Microbiology PROCEDURE: Urine Culture [R1] SOURCE: U CleanCatch BODY SITE: COLLECTED DATE/TIME: 04/29/2025 20:43 EDT RECEIVED DATE/TIME: 04/29/2025 21:05 EDT START DATE/TIME: 04/29/2025 21:05 EDT FREE TEXT SOURCE: Candelario Wilhelm DO, DO, Kevin M. FINAL REPORTS Final Report [] Verified Date/Time: 05/01/2025 11:30 EDT <10,000 cfu/ml Mixed skin contaminants Performing Locations R1: This test was performed at: [facility], [address] [place] [address], [phone] , , FdeohbBfjgqeCleveland Clinic Medina HospitalComment on above:Performed By: #### [id number] ####[facility] [address] [place], [place] [address]BQ Abdomen/Pelvis w/ Contraston 71-63-5945ZP Abdomen/Pelvis w/ ContrastExam Date/Time: 04/29/2025 21:00 EDT [...] Edgar Lassiter MD Transcribed by: MESERET Technologist: AbundioSt. Vincent HospitalB hCG Qual on 77-94-5378Svcm hCG QlNegativeNormalSt. Vincent HospitalComment on above:Performed By: #### [id number] #### [facility] [address] [place], [place] [address]IKLnh 29-47-6921Euzvx gap [Moles/Vol]10 mmol/LNormal6-16St. Vincent HospitalComment on above:Performed By: #### [id number] #### [facility] [address] [place], [place] [address]RSG/Creat Ratio19 No CmttfTfydij31-39VikmjrSt. Vincent HospitalComment on above:Performed By: #### [id number] #### [facility] [address] [place], [place] [address]Acanbth [Mass/Vol]9.1 mg/dLNormal8.9-11.1FChildren's Hospital of ColumbusComment on above:Performed By: #### [id number] #### [facility] [address], [place] [address]Zvqlivno [Moles/Vol]107 mmol/GQllwtc509-849WpvfpfSt. Vincent HospitalComment on above:Performed By: #### [id number] #### [facility] [address], [place] [address]LN2 [Moles/Vol]27 mmol/PJgovyl58-70QekzdiSt. [facility] Hospital Comment on above:Performed By: #### [id number] #### [facility] [address] [place], [place] [address]Fpmrrbhtfo [Mass/Vol]0.7 mg/dLNormal0.5-1.3FChildren's Hospital of ColumbusComment on above:Performed By: #### [id number] #### [facility] [address], [place] [address]Fuqovmp [Mass/Vol]87 mg/dOXqsklf56-992LdiyoeSt. Vincent HospitalComment on above:Performed By: #### [id number] #### [facility] [address] [place], [place] [address]Tstujgciv [Moles/Vol]3.8 mmol/LNormal3.5-5.3FChildren's Hospital of ColumbusComment on above:Performed By: #### [id number] #### [facility] [address] [place], [place] [address]Pdckue [Moles/Vol]140 mmol/MYcglqz036-390HrtxlxSt. Vincent HospitalComment on above:Performed By: #### [id number] #### [facility] [address] [place], [place] [address]Abnm nitrogen [Mass/Vol]13 mg/dLNormal5-21St. Vincent HospitalComment on above:Performed By: #### [id number] #### [facility] [address] [place], [place] [address]EHJ w/ Auto Diffon 74-24-0568Mjmopofm Absolute0.0 E9/LNormal 0.0-0.2FChildren's Hospital of ColumbusComment on above:Performed By: #### [id number] #### [facility] [address] [place], [place] [address]Mutvktoiq/100 WBC (Bld)0.4 %Normal0.0-2.0St. Vincent HospitalComment on above:Performed By: #### [id number] #### [facility] [address] [place], [place] [address]Mta Absolute0.0 E9/LNormal0.0-0.5FChildren's Hospital of Columbus Comment on above:Performed By: #### [id number] #### [facility] [address], [place] [address]Cmttonahwwn/100 WBC (Bld)0.3 %Normal0.0-8.0St. Vincent HospitalComment on above:Performed By: #### [id number] #### [facility] [address] [place], [place] [address]Mlbyaasavab distribution width (RBC) [Ratio]13.3 %Normal 10.9-14.2FChildren's Hospital of ColumbusComment on above:Performed By: #### [id number] #### [facility] [address] [place] [address]Yessxeejpv (Bld) [Volume fraction]39.6 %Uufuez38.0-46.0St. [facility] HospitalComment on above:Performed By: #### [id number] #### [facility] [address] [place] [address]Wkiqukbzba (Bld) [Mass/Vol]13.4 g/hNEamkih04.0-16.0St. [facility] HospitalComment on above:Performed By: #### [id number] #### [facility] [address] [place] [address]Cmubg Absolute2.0 E9/LNormal1.0-4.0[facility] Comment on above:Performed By: #### [id number] #### [facility] [address] [place] [address]Xasquarxarq/100 WBC (Bld)22.0 %Bwarcy32.0-50.0St. [facility] HospitalComment on above:Performed By: #### [id number] #### [facility] [address] [place] [address]YCW (RBC) [Entitic mass]30.8 uySfbftj01.0-34.0St. [facility] HospitalComment on above:Performed By: #### [id number] #### [facility] [address] [place] [address]LEXC (RBC) [Mass/Vol]33.9 g/mBZttjlo41.4-36.0St. [facility] HospitalComment on above:Performed By: #### [id number] #### [facility] [address] [place] [address]EUG (RBC) [Entitic vol]90.8 rOGnztiq49.0-100.0St. [facility] HospitalComment on above:Performed By: #### [id number] #### [facility] [address], [place] [address]Qxkf Absolute0.5 E9/LNormal0.2-1.0[facility] Comment on above:Performed By: #### [id number] #### [facility] [address], [place] [address]Gxfkbtkul/100 WBC (Bld)5.4 %Normal4.0-14.0St. Vincent HospitalComment on above:Performed By: #### [id number] #### [facility] [address] [place], [place] [address]Twdysy Absolute6.4 E9/LNormal2.0-7.5FChildren's Hospital of Columbus Comment on above:Performed By: #### [id number] #### [facility] [address] [place] [address]Ltubej Auto71.9 %Qdgtdw26.0-75.0[facility] Comment on above:Performed By: #### [id number] #### [facility] [address] [place], [place] [address]Afpnceeo964.0 E9/SDlkity939.0-500.0[facility] Comment on above:Performed By: #### [id number] #### [facility] [address] [place], [place] [address]Txvijsnz mean volume (Bld) [Entitic vol]8.7 fLNormal6.4-10.8 [facility] HospitalComment on above:Performed By: #### [id number] #### [facility] [address] [place], [place] [address]UAO0.4 E12/LNormal4.3-5.9St. [facility] HospitalComment on above:Performed By: #### [id number] #### [facility] [address] [place], [place] [address]XJS2.9 E9/LNormal4.0-11.0St. [facility] HospitalComment on above:Performed By: #### [id number] #### [facility] [address] [place], [place] [address]JT Clinical Summaryon [id number] Clinical SummaryED Clinical Summary [address] [address] ED Clinical Summary Person Information Name: YANETH DENNIS [place] Age: 24 Years : 2000 Sex: Female Language: [place] PCP: MIRI MAX Marital Status: Single Visit [...] 04/29/2025 22:49:32 04/29/2025 22:49:32 04/29/2025 22:49:32 ADDRESS: [address] [place] [phone] PHYS DOC NOTES: MEDICAL INFORMATION: Prescriptions Given: New Medications [facility], [address] [place] [id number], [phone] ibuprofen (ibuprofen 800 mg Tab) 1 Tablets [...] Female Follow up: With: Address: When: Mirian Singh [place] [id number] [employer] ([employer] In 3 days 05/02/2025 Comments: Call the [...] (more content notincluded)...NormalFisher Neal Medical CenterED Note-Physicianon [id number] Note-PhysicianED Note-Physician Basic Information Time Seen: Candelario [...] is on control. She has seen her [employer] for this and was told it may [...] Pain/Fever, # 30 tab(s), Refills(s) 0, Pharmacy: [facility]/pharmacy #6109, 172.7, cm, 04/29/25 19:05:00 EDT, Height/Length Dosing, 80.6, kg, 04/29/25 19:05:00 EDT, Weight Dosing ketorolac, 30 mg = 1 mL, Injection, IV Push, Once, Stop date 04/29/25 19:35:00 EDT, STAT, Start date 04/29/25 19:35:00 EDT, 04/29/25 19:35:00 EDT nitrofurantoin, 100 mg = 1 cap(s), Oral, BID, X 3 day(s), # 6 cap(s), Refills(s) 0, [facility], 172.7, cm, 04/29/25 19:05:00 EDT, Height/Length Dosing, 80.6, kg, 04/29/25 19:05:00 EDT, Weight Dosing ondansetron, 4 mg = 1 tab(s), Oral, q8hr, # 12 tab(s), Refills(s) 0, Pharmacy: [facility]/pharmacy #6173, 172.7, cm, 04/29/25 19:05:00 EDT, [...] above:Result Comment: Electronically Signed By: Candelario Wilhelm DO.br\Date and Time Signed: 04/29/25 22:42 EDTED Patient Summaryon [id number] Patient SummaryED Patient Summary [place] [id number] Patient Discharge Instructions Person Information Name: YANETH DENNIS Age: 24 Years Arrival Date: 04/29/2025 18:57:15 Discharge Diagnosis: Acute lower UTI; Pelvic congestion syndrome Primary Care Physician: MIRI MAX Provider Information Primary Provider: Candelario Wilhelm DO Advanced Board Operator:None The exam and treatment you received in the Emergency Department were for an urgent problem and are not intended as complete care. It is important that you follow up with a doctor, nurse practitioner,or physician???s litigation legal assistant for ongoing care. If your symptoms become worse or you do not improve asexpected and you are unable to reach your usual health care provider, you should return to the Emergency Department. We are available 24 hours a day. YANETH DENNIS has been given the following list of patient education materials, prescriptions and follow-up instructions: Follow-up Instructions: With: Address: When: Mirian Bettencourt [address] [place] [phone] [facility] (1) In 3 days 05/02/2025 Comments: Call [...] pelvic congestion syndrome. With: Address: When: LEIDA NUR In 3 days 05/02/2025 Comments: Call the [...] opioids can be used to help relieve snyiytwk-cj-ywkrcn pain and are often prescribed following a [...] Valium) ??? Muscle relaxant (more content not included)...NormalSt. Vincent HospitalExtra Blueon 59-54-9713Ylqi Collected PlasmaYesInvalid Interpretation Code St. Vincent HospitalComment on above:Performed By: #### [id number] #### [facility] [address] [place], [place] [address]Nqf Func Panelon 24-88-5986Efenpfp [Mass/Vol]4.3 g/dLNormal 3.3-5.0St. [facility] HospitalComment on above:Performed By: #### [id number] #### [facility] [address] [place], [place] [address]Rrmlmxv/Globulin [Mass ratio]1.6 {ratio}Normal1.1-2.2FChildren's Hospital of ColumbusComment on above:Performed By: #### [id number] #### [facility] [address] [place], [place] [address]Xoi Phos52 Int._Unit/JBaxvat81-93SgdehtSt. Vincent Hospital Comment on above:Performed By: #### [id number] #### [facility] [address] [place], [place] [address]VOU4 Int._Unit/LNormal6-46St. [facility] HospitalComment on above:Performed By: #### [id number] #### [facility] [address] [place], [place] [address]ERX02 Int._Unit/LNormal5-43St. [facility] HospitalComment on above:Performed By: #### [id number] #### [facility] [address] [place], [place] [address]Amqa Direct0.2 mg/dLNormal0.0-0.4FChildren's Hospital of Columbus Comment on above:Performed By: #### [id number] #### [facility] [address] [place], [place] [address]Xrfi Indirect0.5 mg/dLNormal0.1-0.9[facility] Comment on above:Performed By: #### [id number] #### [facility] [address] [place], [place] [address]Tcdu Total0.7 mg/dLNormal0.0-1.1[facility] Comment on above:Performed By: #### [id number] #### [facility] [address], [place] [address]Otuplsob (S) [Mass/Vol]2.7 g/dLNormal1.4-4.0St. [facility] HospitalComment on above:Performed By: #### [id number] #### [facility] [address] [place], [place] [address]Pgukoqv [Mass/Vol]7.0 g/dLNormal6.0-7.8St. Vincent HospitalComment on above:Performed By: #### [id number] #### [facility] [address] [place] [address]XM with Cult Rflxon 74-44-2041Rliod (U)YellowNormalYellowSt. Vincent HospitalComment on above:Result Comment: Microscopic readings are only performed on those samples that meet specific criteria set forth by [facility].Performed By: #### [id number] #### [facility] [address] [place] [address]Jjwfugi (U) [Mass/Vol]NegativeNormalNegativeSt. Vincent HospitalComment on above:Performed By: #### [id number] #### [facility] [address] [place], [place] [address]Gqllszn Ql (U)1+ mg/dLAbnormalNegativeSt. Vincent HospitalComment on above:Performed By: #### [id number] #### [facility] [address], [place] [address]KJ BloodNegativeNormalNegativeSt. Vincent Hospital Comment on above:Performed By: #### [id number] #### [facility] [address] [place] [address]RF BacteriaTraceNormalTraceSt. Vincent HospitalComment on above:Performed By: #### [id number] #### [facility] [address] [place], [place] [address]PQ ClarityTurbidAbnormalClearFChildren's Hospital of ColumbusComment on above:Performed By: #### [id number] #### [facility] [address] [place], [place] [address]ER Leuk Mfy015 Elena/uLAbnormalNegativeSt. Vincent HospitalComment on above:Performed By: #### [id number] #### [facility] [address] [place], [place] [address]OR MucousTraceNormalNegativeSt. Vincent HospitalComment on above:Performed By: #### [id number] #### [facility] [address] [place] [address]FX NitriteNegativeNormalNegativeSt. Vincent Hospital Comment on above:Performed By: #### [id number] #### [facility] [address] [place], [place] [address]QI pH7.5Invalid Interpretation Code5.0-9.0St. [facility] HospitalComment on above:Performed By: #### [id number] #### [facility] [address] [place], [place] [address]FJ ProteinTraceAbnormalNegativeSt. Vincent Hospital Comment on above:Performed By: #### [id number] #### [facility] [address] [place], [place] [address]MY PZM4-07Ckmhgllq2-9UkwyyeChildren's Hospital of ColumbusComment on above:Performed By: #### [id number] #### [facility] [address] [place], [place] [address]DV Spec Grav1.022Invalid Interpretation Code1.005-1.030St. [facility] HospitalComment on above:Performed By: #### [id number] #### [facility] [address] [place], [place] [address]JR Squam Epithelial>10Invalid Interpretation CodeSt. Vincent HospitalComment on above:Performed By: #### [id number] #### [facility] [address], [place] [address]WR UrobilinogenNegativeNormalNegativeSt. Vincent HospitalComment on above:Performed By: #### [id number] #### [facility] [address], [place] [address]UZ QZV08-61Csgrvllc3-0Riguzz Holy Cross HospitalComment on above:Performed By: #### [id number] #### [facility] [address] [place], [place] [address]Hnowxwdqirnn (U) [Mass/Vol]NegativeNormalNegativeSt. Vincent HospitalComment on above:Performed By: #### [id number] #### [facility] [address] [place], [place] [address]OC Spec DescClean CatchNormHarrison Community HospitalComment on above:Performed By: #### [id number] #### [facility] [address] [place], [place] [address]cBHSpc 62-10-3371gNRN802 mL/min/1.73 w0Ljspji>=59St. Vincent HospitalComment on above:Performed By: #### [id number] #### [facility] [address] [place], [place] [address]Iwiwduwmqv Visit Summaryon 46-70-8149Zqoljtpyvd Visit Summary Ambulatory Visit Summary SONNY YANETH Zhang :2000 Visit Date:03/06/2025 Ambulatory Visit Instructions Your [...] to = 400mg po TID Pickup at [facility]/pharmacy #6173 Changed gabapentin (gabapentin 300 mg Cap) 1 Capsules By Mouth 3 times a day Neuropathy Pickup at [facility]/pharmacy #6173 Unchanged acetaminophen-oxycodone (Percocet 7.5 mg-325 mg oral tablet) 1 Tablets By Mouth Every dayScoliosis Thoracic spine pain Pickup at [facility]/pharmacy #6173 Unchanged amphetamine-dextroamphetamine (Adderall 10 mg oral [...] (in the evening) Muscle spasm Pickup at [facility]/pharmacy #6173 Pharmacy Information [facility]/pharmacy #6173: [address] [place], [place] [id number] [phone] What How Much When Why Comments Stop [...] with us by (more content not included)...Normal [facility] Medicine Office/Clinic Noteon [id number] Medicine Office/Clinic NoteFaholyoke medical center Medicine Office/Clinic Note Chief Complaint needs orders [...] recently saw her neurosurgeon, Dr Rodrigues at [facility] and she was able to get [...] to order a CT for outpatient at [facility] - this is necessary to evaluate [...] painful and tender numbness/burning tingling reported to E Assessment/Plan 1. Back pain with history of spinal surgery (M54.9: Dorsalgia, unspecified) refill percocet increase GBP to 400mg po TID continue with surgeon at [facility] FCE ordered for SSI paperwork 2. Cervical spine pain (M54.2: Cervicalgia) CT ordered for [facility] [place] 3. Injury of cervical spine, (S14.109A: Unspecified injury at unspecified level of cervical spinal cord, initial encounter)Injury of cervical spine see 2 Ordered: gabapentin, 100 mg = 1 cap(s), Oral, TID, take 100mg capsule with 300mg capsule to = 400mg po TID, # 90 cap(s), Refills(s) 11, [id number], cm, 03/06/25 11:42:00 EDT, Height/Length Dosing, 83.1, kg, 03/06/25 11:42:00 EDT, Weight Dosing CT Spine Cervical w/o Contrast [facility] Evaluate Patient, Develop a [...] TID, # 90 cap(s), Refills(s) 11, [facility], 168, cm, 03/06/25 11:42:00 EDT, Height/Length Dosing, 83.1, kg, 03/06/25 11:42:00 EDT, Weight Dosing tizanidine, 4 mg = 1 tab(s), Oral, qPM, # 90 tab(s), Refills(s) 2, [facility], 168, cm, 03/06/25 11:42:00 EDT, Height/Length Dosing, 83.1, kg, 03/06/25 11:42:00 EDT, Weight Dosing Neuropathy (G62.9: Polyneuropathy, unspecified) Ordered: gabapentin, 100 mg = 1 cap(s), Oral, TID, take 100mg capsule with 300mg capsule to = 400mg po TID, # 90 cap(s), Refills(s) 11, [facility], 168, cm, 03/06/25 11:42:00 EDT, Height/Length Dosing, 83.1, kg, 03/06/25 11:42:00 EDT, Weight Dosing gabapentin, 300 mg = 1 cap(s), Oral, TID, # 90 cap(s), Refills(s) 11, [facility], cm, 03/06/25 11:42:00 EDT, Height/Length Dosing, 83.1, kg, 03/06/25 11:42:00 EDT, Weight Dosing Other specified postprocedural states (Z98.890: Other specified postprocedural states) Scoliosis (M41.9: Scoliosis, unspecified) Ordered: gabapentin, 100 mg = 1 cap(s), Oral, TID, take 100mg capsule with 300mg capsule to = 400mg po TID, # 90 cap(s), Refills(s) 11, [facility], 168, cm, 03/06/25 11:42:00 EDT, Height/Length Dosing, 83.1, kg, 03/06/25 11:42:00 EDT, Weight Dosing [facility] Evaluate Patient, Develop a Plan of Care, & Implement Plan Orders: hydrOXYzine, 25 mg = 1 tab(s), Oral, QID, PRN for anxiety, # 40 tab(s), Refills(s) 4, [facility], 172, cm, 11/27/24 10:44:00 EDT, Height/Length Dosing, 90.7, kg, 11/27/24 10:44:00 EDT, Weight Dosing hydrOXYzine, 25 mg = 1 tab(s), Oral, QID, PRN for anxiety, # 40 tab(s), Refills(s) 4, [facility], (more content not included)...Normal 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 Pt stated it has been sent twice. I do see some from December, not sure if it what needs to be filled out. Pt would like a call back Is there any additional information the provider should know? No Last Office Visit: 02/05/2025 Next scheduled appointment: Visit date not found Best number to reach caller: [phone] Best time to reach caller: any Is it OK to leave a detailed voice message? Yes Rashad Qiu, RN 02/13/2025 11:02 AM Signed Attempted to [...] re form - Pls call back Rashad Reyes, RN 02/14/2025 12:37 PM Signed Returned call [...] Reason for Visit: Results [95] Patient Question [8867] Prescriptions as of 02/17/2025 - dextroamphetamine-amphetamine (ADDERALL) [...] times a day. - Norethin Caden-Eth Estrad-FE (10/07, ,) 1 mg-20 [...] 07/14/2023 Encounter Status:Closed by RASHAD REYES on 02/13/25NoOur [facility] of [facility] - AndersonXR Thoracic and lumbar spine Views for scoliosis W standingon [id number]: T2-L3 posterior fusion with intact hardware and unchanged residual S-shaped scoliosis. Precision Machine Operator: ANDREW Transcribe Date/Time: Feb 11 2025 8:29A Dictated by : MARC DESIR MD This examination was interpreted and the report reviewed and electronically signed by: EDGAR LECHUGA MD on Feb 11 2025 9:09AM [facility] KATHY RADIOLOGY* * *Final Report* * * DATE [...] Vertebral body and disc heights are maintained. KATHY RADIOLOGYProvider, [facility] [place] - 02/11/2025 * * *Final Report* * * DATE OF EXAM: Feb 09 2025 9:18AM [facility] 5251 - XR SCOLIOSIS 2V PA STAND/LAT [...] intact hardware and unchanged residual S-shaped scoliosis. Precision Machine Operator: PSCB Transcribe Date/Time: Feb 11 2025 8:29A Dictated by : MARC DESIR MD This examination was interpreted and the report reviewed and electronically signed by: EDGAR LECHUGA MD on Feb 11 2025 9:09AM [facility] LUMBAR SPINE WO IVCONon [id number] LUMBAR SPINE WO IVCON* * *Final Report* * * DATE OF EXAM: Feb 09 2025 8:55AM [facility] 0508 - CT LUMBAR SPINE WO IVCON [...] reveal no compression (more content not included)... NormalAvon HospitalCT Lumbar spine WO contraston 02-09-2025* * *Final Report* * * DATE OF EXAM: Feb 09 2025 8:55AM [facility] 0508 - CT LUMBAR SPINE WO IVCON [...] are normal in h (more content not included)...KATHY RADIOLOGYProvider, [facility] [place] - 02/09/2025 * * *Final Report* * * DATE OF EXAM: Feb 09 2025 8:55AM [facility] 0508 - CT LUMBAR SPINE WO IVCON [...] lumbar vertebral bodies ar (more content not included)...[facility] THORACIC SPINE WO IVCONon [id number] THORACIC SPINE WO IVCON* * *Final Report* * * DATE OF EXAM: Feb 09 2025 8:55AM [facility] 0514 - CT THORACIC SPINE WO IVCON [...] reveal no compressi (more content not included)...Normal [facility] Thoracic spine WO contraston 02-09-2025* * *Final Report* * * DATE OF EXAM: Feb 09 2025 8:55AM [facility] 0514 - CT THORACIC SPINE WO IVCON [...] bodies are normal in (more content not included)...KATHY RADIOLOGYProvider, [facility] [place] - 02/09/2025 * * *Final Report* * * DATE OF EXAM: Feb 09 2025 8:55AM [facility] 0514 - CT THORACIC SPINE WO IVCON [...] The lumbar vertebral bodies (more content not included)...[facility] HospitalNo Panel Informationon [id number]: 1. Posterior fusion from T2 through L3. [...] This was present previously. 7. Thoracolumbar scoliosis. Precision Machine Operator: ANDREW Transcribe Date/Time: Feb 09 2025 9:06A Dictated by : FRANK BENJAMIN MD This examination was interpreted and the report reviewed and electronically signed by: FRANK BENJAMIN MD on Feb 09 2025 9:34AM EST SHELDAHL RADIOLOGYRadiology Study observation (narrative)[facility] InformationOrdered By: Ccf Provider on [id number] ClinicXR SCOLIOSIS 2V PA STAND/LATon [id number] SCOLIOSIS 2V PA STAND/LAT* * *Final Report* [...] intact hardware and unchanged residual S-shaped scoliosis. Precision Machine Operator: ANDREW Transcribe Date/Time: Feb 11 2025 8:29A Dictated by : MARC DESIR MD This examination was interpreted and the report reviewed and electronically signed by: EDGAR LECHUGA MD on Feb 11 2025 9:09AM EST [id number] Lake Regional Medical CenterXR Thoracic and lumbar spine Views for scoliosis W standingon [id number] Study observation (narrative) [facility] [id number] Visit (SPNSMN) YANETH DENNIS ([id number]) 1 F Date Time Provider Department 02/05/25 2:20 PM [facility] SPADAMMN During your visit today, we recorded the following information about you: Pulse Respiration Blood pressure Weight 70/minute 18/minute 119/76 87 kg Height Last Period 1.727 m 01/13/25 Sumeet De La Cruz MD 02/24/2025 10:37 AM Signed SPINE SURGERY ESTABLISHED This is an in-person visit. Staff note: HPI Yaneth is a 24-year-old female presenting with back [...] the area around your hips) at the [facility] facility; the imaging order has been sent. - We will review your x-rays and CT images and call you with results. If all screws and fusion sites look stable, you can begin physical therapy and start muscle relaxant medication as discussed. - Ask your insurance sales manager to fax the requested paperwork again to [...] as needed for pain. Norethin Caden-Eth Estrad-FE (,) 1 mg-20 mcg [...] Other Off work 1 (more content not included)...NormalKeenan Private HospitalCOon [id number] TextNormalCChillicothe Hospital [id number] Telephone (NIQ) YANETH DENNIS ([id number]) 1 F Date Time Provider Department 02/04/25 [...] times a day. - Norethin Caden-Eth Estrad-FE (10/07, ,) 1 mg-20 [...] 07/14/2023 Encounter Status:Closed by CONCHA MCBRIDE on 02/04/25[facility] Summaryon [id number] Visit Summary Ambulatory Visit Summary YANETH DENNIS [...] aday Scoliosis Thoracic spine pain Pickup at [facility] Unchanged amphetamine-dextroamphetamine (Adderall 10 mg oral tablet) 1 Tablets By Mouth Once a day (in the morning) ADHD Pickup at [facility]/pharm[facility] #6173 Unchanged amphetamine-dextroamphetamine (Adderall XR 10 mg Cap-ER) 1 Capsules By Mouth Once a day (in the morning) ADHD Pickup at [facility]/pharm[facility] Unchanged diazepam (Valium 10 mg Tab) [...] (in the evening) Muscle spasm Pharmacy Information [facility]/pharmacy #6173: [address] [place], [place] [phone] Allergies Augmentin (Vomiting) Problems Ongoing - Any [...] you for choosing us for your care. [facility] Medicine Office/Clinic Noteon [id number] Medicine Office/Clinic NoteFamily Medicine Office/Clinic Note Chief Complaint f/u on [...] pending an MRI of the area through [facility] and her prior surgeon and this [...] qAM, # 30 cap(s), Refills(s) 0, Pharmacy: [facility]/pharmacy #6173, 172, cm, 01/22/25 15:54:00 EDT, Height/Length [...] Crm, 1 john, Topical, BID, 1 refills Junel Fe 10/07 oral tablet Lexapro [...] Time Signed: 01/22/25 16:15 EDTAmbulatory Visit Summaryon [id number] Visit SummaryAmbulatory Visit Summary YANETH DENNIS :2000 Visit Date:01/08/2025 Ambulatory Visit Instructions Your [...] hours Strep throat Duration: 7 DaysPickup at [facility] Unchanged acetaminophen-oxycodone (Percocet 7.5 mg-325 mg oral tablet) 1 Tablets By Mouth 3 times aday Scoliosis Pickup at [facility]/pharmacy #6173 Unchanged amphetamine-dextroamphetamine (Adderall 10 mg oral [...] total daily dose of 30mg Pickup at [facility]/pharmacy #6173 Unchanged ethinyl estradiol-norethindrone ( oral tablet) [...] (in the evening) Muscle spasm Pharmacy Information [facility]: [address] [place], [place] [phone] What How Much When Why Comments Stop [...] you for choosing us for your care. [facility] Medicine Office/Clinic Noteon [id number] Medicine Office/Clinic NoteBoston [facility] Medicine Office/Clinic Note Chief Complaint Sore throat [...] day(s), # 14 cap(s), Refills(s) 0, Pharmacy: [facility]/pharmacy #6173, 172, cm, 01/08/25 13:59:00 EDT, Height/Length Dosing, 88.2, kg, 01/08/25 13:59:00 EDT, Weight Dosing 2. Thoracic spine pain (M54.6: Pain in thoracic spine) refill pain medication pending eval per neuro and surgery Depression (F32.A: Depression, unspecified) Ordered: escitalopram, 20 mg = 1 tab(s), Oral, Daily, Take with 10mg tab for total daily dose of 30mg, # 90 tab(s), Refills(s) 3, Pharmacy: [facility], 172, cm, 01/08/25 13:59:00 EDT, Height/Length Dosing, 88.2, kg, 01/08/25 13:59:00 EDT, Weight Dosing Scoliosis (M41.9: Scoliosis, unspecified) Ordered: acetaminophen-oxycodone, 1 tab(s), Oral, TID, 30 tab(s), Refill(s) 0, [facility]pharm[facility], 172, cm, 01/08/25 13:59:00 EDT, Height/Length [...] Signed By: MIRI MAX\.br\Date and Time Signed: 01/08/25 14:42 EDTInterdisciplinary Note - PTon [id number] Note - PTInterdisciplinary Note - PT Pt. no showed for her eval on 12-13-24.[facility] HospitalC Urineon [id number] identified Cx Nom (U)Microbiology PROCEDURE: Urine Culture [R1] SOURCE: U CleanCatch BODY SITE: COLLECTED DATE/TIME: 12/12/2024 12:12 EDT RECEIVED DATE/TIME: 12/12/2024 17:41 EDT START DATE/TIME: 12/12/2024 17:41 EDT FREE TEXT SOURCE: BECK MALAGON, BECK MALAGON, MIRI RILEY FINAL REPORTS Final Report [] Verified Date/Time: 12/14/2024 09:07 EDT 1,000 cfu/ml Mixed skin contaminants Performing Locations R1: This test was performed at: [facility], [address] [place] [address], [facility] , , BccahcIsjwcjNorwalk Memorial HospitalComment on above:Performed By: #### [id number] #### [facility] [address] [place] [address]Wubeqbrpbj Visit Summaryon [id number] Visit Summary Ambulatory Visit Summary DARLENE DENNISGILBERT Zhang :2000 Visit Date:12/12/2024 Ambulatory Visit Instructions Your [...] of urination Duration: 7 Days Pickup at [facility] New phenazopyridine (Pyridium 100 mg Tab) 1 Tablets By Mouth 3 times a day Urgency of urination Duration: 3 Days Pickup at [facility]pharm[facility]6173 Unchanged acetaminophen-oxycodone (Percocet 7.5 mg-325 mg oral tablet) 1 Tablets By Mouth 3 times aday Scoliosis Pickup at [facility]6173 Unchanged amphetamine-dextroamphetamine (Adderall 10 mg oral [...] (in the evening) Muscle spasm Pharmacy Information [facility]/pharmacy #6173: [address] [place], [place] [phone] Allergies Augmentin (Vomiting) Problems Ongoing - Any [...] you for choosing us for your care. [facility] Medicine Office/Clinic Noteon [id number] Medicine Office/Clinic NoteBoston [facility] Center Medicine Office/Clinic Note Chief Complaint Bladder infection [...] day(s), # 14 cap(s), Refills(s) 0, [facility], 172, cm, 12/12/24 11:27:00 EDT, Height/Length Dosing, 92.4, kg, 12/12/24 11:27:00 EDT, Weight Dosing phenazopyridine, 100 mg = 1 tab(s), Oral, TID, X 3 day(s), # 9 tab(s), Refills(s) 0, [facility], 172, cm, 12/12/24 11:27:00 EDT, Height/Length Dosing, 92.4, kg, 12/12/24 11:27:00 EDT, Weight Dosing Urnls Dip Stick Auto w/o Microscopy POC 95451 2. Scoliosis (M41.9: Scoliosis, unspecified) refill pain medication fu 3 m pending eval per neurosurg Ordered: acetaminophen-oxycodone, 1 tab(s), Oral, TID, 30 tab(s), Refill(s) 0, [facility], 172, cm, 11/27/24 10:44:00 EDT, Height/Length [...] By: BECK MALAGON, MIRI\.br\Date and Time Signed: 12/12/24 11:56 EDTLaboratory - Microbiology and Antimicrobial susceptibilityOrdered By: Kailyn Loyola on [id number] identified Cx Nom (U)No growth to [facility] CenterED Note-Physicianon [id number] Note-PhysicianED Note-Physician Basic Information Time Seen: Jermain [...] pain for 3 day(s), 15 tab(s), Refill(s)0, [facility], 172, cm, 11/24/24 14:48:00 EDT, Height/Length [...] PRN Follow-up With When Contact Information LEIDA NUR In 3 days 11/27/2024 EDT Additional Instructions: [...] made to ensure accuracy, however, inadvertently computerized towel inspector mistakes may be present. Appropriate healthcare PPE [...] 1 tab(s), Oral, QID, PRN, 4 refills June Fe 10/07 oral tablet Lexapro 20 mg Tab, 20 mg= 1 tab(s), Oral, Daily, 3 refills tiZANidine 4 mg Tab, 4 mg= 1 tab(s), (more content not included)...[facility] HospitalComment on above:Result Comment: Electronically Signed By: Jermain Santana PA-C\.br\Date and Time Signed: 11/24/2514:48 EDT\.br\Electronically Co-Signed By: Blaze Bailey MD\.br\Date and Time Co-Signed: 12/01/24 00:48 EDTAmbulatory Visit Summaryon [id number] Visit Summary Ambulatory Visit Summary YANETH DENNIS :2000 Visit Date:11/27/2024 Ambulatory Visit Instructions Your Diagnosis Back pain with history of spinal surgery Nerve damage Scoliosis, Scoliosis Anxiety Claustrophobia Muscle spasm Neuropathy Other specified postprocedural states Your Care Team Attending Physician - MIRI MAX Primary Care Physician - BECK MALAGON, MIRI This Is Your Medications List acetaminophen-oxycodone (Percocet [...] No, Cervical spine pain, pp_set_radiology_subspecialty, [facility] Spine Lumbar w/o Contrast, 11/27/24, Routine, Order for Future Visit, Transport Mode: Ambulatory, Reason: Pain, No, No, Lumbar spine pain, pp_set_radiology_subspecialty, [facility] Spine Thoracic w/o Contrast, 11/27/24, Routine, Order for Future Visit, Transport Mode: Ambulatory, Reason: Pain, No, No, Thoracic back pain, pp_set_radiology_subspecialty, [facility] Medications What How Much When Why Instructions Changed acetaminophen-oxycodone (Percocet 7.5 mg-325 mg oral tablet) 1 Tablets By Mouth 3 times a day Scoliosis Pickup at [facility]/pharmacy #2911 Changed diazepam (Valium 10 mg Tab) 1 Tablets By Mouth Once as needed for for anxiety Claustrophobia one time dose prior to MRI Pickup at [facility]/pharm[facility] #6173 Changed gabapentin (gabapentin 300 mg Cap) 1 Capsules By Mouth 3 times a day Neuropathy Pickup at [facility]/pharm[facility] #6173 Unchanged amphetamine-dextroamphetamine (Adderall 10 mg oral [...] needed for for anxiety Anxiety [facility] Unchanged tizanidine (tiZANidine 4 mg Tab) 1 Tablets By Mouth Once a day (in the evening) Muscle spasm [facility] [address] [place], [place] [phone] Allergies Augmentin (Vomiting) Problems Ongoing - Any [...] you for choosing us for your care. [facility] Medicine Office/Clinic Noteon [id number] Medicine Office/Clinic NoteFaholyoke medical center Medicine Office/Clinic Note Chief Complaint ER f/u HPI Staff ER followup: [facility] Visit date:11/24/24 Symptoms the patient presented with: [...] tab(s), Oral, TID, 20 tab(s), Refill(s) 0, [facility] 172, cm, 11/27/24 10:44:00 EDT, Height/Length Dosing, 90.7, kg, 11/27/24 10:44:00 EDT, Weight Dosing Anxiety (F41.9: Anxiety disorder, unspecified) Ordered: hydrOXYzine, 25 mg = 1 tab(s), Oral, QID, PRN for anxiety, # 40 tab(s), Refills(s) 4, [facility], 172, cm, 11/27/24 10:44:00 EDT, Height/Length Dosing, 90.7, kg, 11/27/24 10:44:00 EDT, Weight Dosing Claustrophobia (F40.240: Claustrophobia) Ordered: diazepam, 10 mg = 1 tab(s), Oral, Once, PRN for anxiety, one time dose prior to MRI, # 1 tab(s), Refills(s) 0, [facility], 172, cm, 11/27/24 10:44:00 EDT, Height/Length Dosing, 90.7, kg, 11/27/24 10:44:00 EDT, Weight Dosing Muscle spasm (M62.838: Other muscle spasm) Ordered: tizanidine, 4 mg = 1 tab(s), Oral, qPM, # 90 tab(s), Refills(s) 2, [facility] 172, cm, 11/27/24 10:44:00 EDT, Height/Length Dosing, 90.7, kg, 11/27/24 10:44:00 EDT, Weight Dosing Neuropathy (G62.9: Polyneuropathy, unspecified) Ordered: gabapentin, 300 mg = 1 cap(s), Oral, TID, # 90 cap(s), Refills(s) 3, [facility], 172, cm, 11/27/24 10:44:00 EDT, Height/Length [...] Time Signed: 11/27/24 11:12 EDTED Clinical Summaryon [id number] Clinical SummaryED Clinical Summary [address] [address] ED Clinical Summary Person Information Name: YANETH DENNIS [facility] Age: 24 Years : 2000 Sex: Female Language: [place] PCP: CIERSEZWSKI BRICKMASON CONTRACTOR-C, MIRI Marital Status: Single Visit Id: Visit Reason: [...] 15:52:53 11/24/2024 15:52:53 11/24/2024 15:52:53 ADDRESS: [address] [place] [id number] PHYS DOC NOTES: MEDICAL INFORMATION: Prescriptions Given: New Medications [facility]/pharmacy #6173, [address] [place] [place] [phone], [phone] acetaminophen-oxycodone (Percocet 5 mg-325 mg oral tablet) [...] Adult Follow up: With: Address: When: LEIDA BECK In 3 days 11/27/2024 DIAGNOSIS: Back painNormalFisher [facility] Patient Summaryon [id number] Patient SummaryED Patient Summary [place] [id number] Patient Discharge Instructions Person Information Name: YANETH DENNIS Age: 24 Years Arrival Date: 11/24/2024 14:35:58 Discharge Diagnosis: Back pain Primary Care Physician: MIRI MAX Provider Information Primary Provider: Blaze Bailey MD Advanced Board Operator:Jermain Santana PA-C The exam and treatment you received in the Emergency Department were for an urgent problem and are not intended as complete care. It is important that you follow up with a doctor, nurse practitioner,or physician???s litigation legal assistant for ongoing care. If your symptoms become worse or you do not improve asexpected and you are unable to reach your usual health care provider, you should return to the Emergency Department. We are available 24 hours a day. YANETH DENNIS has been given the following list of patient education materials, prescriptions and follow-up instructions: Follow-up Instructions: With: Address: When: LEIDA BECK In 3 days 11/27/2024 In the event that this physician does not participate in your insurance network, please consult with your insurance company to find a nearby participating provider. Patient Education Materials: Acute Back Pain, Adult A MESSAGE TO ALL PATIENTS REGARDING OPIOIDS PRESCRIPTION OPIOIDS: WHAT YOU NEED TO KNOW Prescription opioids can be used to help relieve phjbgueh-mt-jzdgfj pain and are often prescribed following a [...] be struggling with addiction, tell your health patient centered care specialist and askfor guidance or call [facility]???S National Helpline at 1-776-672 (more content not included)...[facility] HospitalXR Spine Thoracic 3 Viewson [id number] Spine Thoracic 3 ViewsExam Date/Time: 11/24/2024 15:07 [...] Danyel Costa MD Transcribed by: MESERET Technologist: ShaNorwalk Memorial HospitalBH Video Visit - Telehealthon [id number] Video Visit - TelehealthBH Video Visit - Telehealth Start Time 3:10 [...] unspecified type) Ordered: Telehealth Interactive Complexity (Add-on) 12074 Telehealth Interactive Complexity (Add-on) 26492 TELEHEALTH Psychotherapy, 30 Mins 86988 TELEHEALTH Psychotherapy, 30 Mins 13579 2. Complex posttraumatic stress disorder (F43.10: Post-traumatic stress disorder, unspecified) Ordered: Telehealth Interactive Complexity (Add-on) 69586 Telehealth Interactive Complexity (Add-on) 08330 TELEHEALTH Psychotherapy, 30 Mins 92192 TELEHEALTH Psychotherapy, 30 Mins 72581 Psychotherapy Summary Client and Clinician come together [...] ex-boyfriend, whom left and went back to [place] once Yaneth put boundaries down. Left without [...] Oral, QID, PRN, 4 refills Junel Fe /20 oral tablet Lexapro 20 mg Tab, 20 [...] above: Result Comment: Electronically Signed By: Jacey Colvin.jennifer\Date and Time Signed: 11/23/24 17:09 [facility] Medicine Office/Clinic Noteon [id number] Medicine Office/Clinic NoteFaholyoke [facility] center Medicine Office/Clinic Note Chief Complaint Adderall f/u [...] Refills(s) 0, Pharmacy[id number], 172, cm, 10/29/24 13:41:00 EST, Height/Length Dosing, 94.1, kg, 10/29/24 13:41:00 EST, Weight Dosing Neuropathy (G62.9: Polyneuropathy, unspecified) Ordered: [facility] External Ambulatory Referral Orders: fluocinolone topical, 1 john, Topical, Daily, 60 gram, Refill(s) 1, apply small amount to warts daily and cover with dry dressing., [facility]/pharmacy #[id number], 172, cm, 09/24/24 8:39:00 EST, Height/Length [...] vaccine, inactivated 02/10/2006 (more content not included)...Normal [facility] HospitalComment on above:Result Comment: Electronically Signed By: MIRI MAX\.br\Date and Time Signed: 10/29/24 14:35 [facility] Video Visit - Telehealthon [id number] Video Visit - Telehealth Video Visit - Telehealth Start Time 3:10 pm Stop Time 3:55 pm Chief Complaint Comes in for Mental Health and Well-Being; Is being seen for Ynys-Lktsgb-Ntsmun this visit focus areas were on - [...] back on track. May be going to [place] for a week to go visit family. Please see note below... CSSRS Risk Assessment Currently not homicidal and or suicidal at this time. Mental Status Exam Alert and Oriented x4 Diagnosis/Assessment/Treatment Plan 1. ADHD (F90.9: Attention-deficit hyperactivity disorder, unspecified type) Ordered: Telehealth Interactive Complexity (Add-on) 69762 Telehealth Interactive Complexity (Add-on) 90246 TELEHEALTH Psychotherapy, 45 Mins (E&M Add-on) 96111 TELEHEALTH Psychotherapy, 45 Mins (E&M Add-on) 61944 2. Complex posttraumatic stress disorder (F43.10: Post-traumatic stress disorder, unspecified) Ordered: Telehealth Interactive Complexity (Add-on) 76929 Telehealth Interactive Complexity (Add-on) 80129 TELEHEALTH Psychotherapy, 45 Mins (E&M Add-on) 39510 TELEHEALTH Psychotherapy, 45 Mins (E&M Add-on) 48768 3. Encounter for family education about Adverse Childhood Experience questionnaire score (Z71.89: Other specified counseling) Ordered: Telehealth Interactive Complexity (Add-on) 43898 Telehealth Interactive Complexity (Add-on) 90226 TELEHEALTH Psychotherapy, 45 Mins (E&M Add-on) 77780 TELEHEALTH Psychotherapy, 45 Mins (E&M Add-on) 23780 Psychotherapy Summary Client and Clinician come together [...] Crm, 1 john, Topical, Bedtime, 1 refills Junel Fe 10/07 oral tablet Lexapro [...] above: Result Comment: Electronically Signed By: Jacey Colvin.jennifer\Date and Time Signed: 10/06/24 16:00 [facility] Video Visit - Telehealthon [id number] Video Visit - [facility] Video Visit - Telehealth Start Time 1:10 [...] unspecified type) Ordered: Telehealth Interactive Complexity (Add-on) 37653 Telehealth Interactive Complexity (Add-on) 69004 TELEHEALTH Psychotherapy, 45 Mins (E&M Add-on) 25266 TELEHEALTH Psychotherapy, 45 Mins (E&M Add-on) 94590 2. Complex posttraumatic stress disorder (F43.10: Post-traumatic stress disorder, unspecified) Ordered: Telehealth Interactive Complexity (Add-on) 58141 Telehealth Interactive Complexity (Add-on) 27666 TELEHEALTH Psychotherapy, 45 Mins (E&M Add-on) 44224 TELEHEALTH Psychotherapy, 45 Mins (E&M Add-on) 82108 3. Relationship dysfunction (Z63.9: Problem related to primary support group, unspecified) Ordered: Telehealth Interactive Complexity (Add-on) 60629 Telehealth Interactive Complexity (Add-on) 56244 TELEHEALTH Psychotherapy, 45 Mins (E&M Add-on) 97370 TELEHEALTH Psychotherapy, 45 Mins (E&M Add-on) 69355 4. History of adverse childhood experiences (Z62.9: Problem related to upbringing, unspecified) Ordered: Telehealth Interactive Complexity (Add-on) 20371 Telehealth Interactive Complexity (Add-on) 64668 TELEHEALTH Psychotherapy, 45 Mins (E&M Add-on) 72297 TELEHEALTH Psychotherapy, 45 Mins (E&M Add-on) 44563 5. Encounter for family education about Adverse Childhood Experience questionnaire score (Z71.89: Other specified counseling) Ordered: Telehealth Interactive Complexity (Add-on) 11389 Telehealth Interactive Complexity (Add-on) 12401 TELEHEALTH Psychotherapy, 45 Mins (E&M Add-on) 25636 TELEHEALTH Psychotherapy, 45 Mins (E&M Add-on) 98008 Psychotherapy Summary Client and Clinician come together and start with a brief check in-Focus areas were processing hardand strong feelings- as a recent break up occur; This was unexpected; Yaneth and ex do have a child together; Yaneth does [...] Focusing on validating emotions and learning emotions. Yaneth wished she was done grieving, and does [...] education about Ad (more content not included)...Normal [facility] HospitalComment on above:Result Comment: Electronically Signed By: Jacey Colvin\.br\Date and Time Signed: 09/26/24 08:59 EST Ambulatory Visit Summaryon [id number] Visit SummaryAmbulatory Visit Summary YANETH DENNIS :2000 Visit Date:09/24/2024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 [facility] UA Auto SSComment on above:Interpretive Data: Microscopic readings are only performed on those samples that meet specific criteria set forth by [facility].Epithelial cells.squamous Auto (Urine sed) [#/Area]5-8 graded/HPFInvalid Interpretation Code0-2graded/HPFFTMC UA Auto SSGlucose Ql (U)NegativeNormalNegativemg/dLFT UA Auto SSHemoglobin Auto test strip (U) [Mass/Vol]2+ mg/dLInvalid Interpretation CodeNegativemg/dLFT UA Auto SSKetones Auto test strip Ql (U)NegativeNormal Negativemg/dLFT UA Auto SSLeukocyte esterase Auto test strip Ql (U)500 Elena/uL Elena/uLInvalid Interpretation CodeNegativeLeu/uLFT UA Auto SSMucus Auto Ql (U) Trace graded/LPFNormalNegativegraded/LPFFTMC UA Auto SSNitrite Auto test strip Ql (U)NegativeNormalNegativemg/dLFT UA Auto SSpH (U)6.5 *NA* (02/13/24 1:10 PM)Invalid Interpretation Code5.0 - 9.0[facility] UA Auto SSProtein Ql (U)NegativeNormalNegativemg/dLFT UA Auto SSRBC Ql (U)31-75 graded/HPFInvalid Interpretation Code0-3graded/HPFFTMC UA Auto SSSpecific gravity (U) [Rel density]1.008 *NA* (02/13/24 1:10 PM)Invalid Interpretation Code1.005 - 1.030FT UA Auto SS Urobilinogen (U) [Mass/Vol]NegativeNormalNegativemg/dLFAIRVIEW REGIONAL MEDICAL C[facility] UA Auto SSWBC Auto (Urine sed) [#/Area]16-25 graded/HPFInvalid Interpretation Code0-5graded/HPFFT UA Auto SSURINALYSISOrdered By: Jermain Santana on 02-61-1599XS Spec DescClean Catch (02/13/24 1:10 PM)NormalFAIRVIEW REGIONAL MEDICAL [facility] UA Auto SS eGFRon 37-69-2322lTGJ641 mL/min/1.73 a5Ohpnvi>=59Fisher Holy Cross HospitalComment on above:Order Comment: Order added by Discern Expert.Performed By: #### [id number] #### Robert [facility] [address], [place] [address]Iznmamp for Treatmenton 45-80-3798Mmvwniq for Treatment [id number]#1.00[facility] HospitalDischarge Instructionson 41-63-8624Niozcdxbn Instructions [id number]#1.00TIFFayette County Memorial Hospital Clinical Summaryon 78-77-7912FC Clinical Summary [address] [address] ED Clinical Summary Person Information Name: YANETH DENNIS [facility] Age: 23 Years : 2000 Sex: Female Language: [place] PCP: Bianka WOODS CNP Marital Status: Single [...] 01/26/2024 17:15:11 01/26/2024 17:15:11 01/26/2024 17:15:11 ADDRESS: [address] [place] [address] [address] [facility] [facility] [id number] [facility] DOC NOTES: MEDICAL INFORMATION: Prescriptions Given: Medications [...] PATIENT EDUCATION INFORMATION: Instructions: Laceration Care, Adult, Cakj-xp-Qwve Follow up: With: Address: When: Bianka WOODS [address] [place] [address] [employer] ([employer] In 3 days 01/29/2024 Comments: Call Dr for diagnosis based follow up. Sutures to be removed in 7-10 days. Keep the area dry for 2 days, then may use soap and water to clean around the area. Discussed signs of infection, and when to report to the emergency department. DIAGNOSIS: Abrasion of left little finger; Laceration of left legNormalFisher Appling Medical CenterED Note-Physicianon 52-21-0689EO Note-PhysicianBasic Information Time Seen: Daniel Mtz PA-C 01/26/2024 15:30 Chief Complaint sitting on glass [...] and Complexity of Problems Differential Diagnosis: [] [facility] Data External documents reviewed: [] My EKG [...] Time Co-Signed: 01/25/2418:02 EDTED Patient Education Noteon 47-05-2838QZ Patient Education NoteDermatology Laceration Care, Adult A [...] cannot use soap and water, use hand shotgun shell loading machine operator. ? Do not usedisinfectants or antiseptics, such as rubbing alcohol, to clean your wound unless told by your doctor. ? If you were given a bandage, change it at least once a day, or as told by your doctor. You shouldalso change it if it gets wet or dirty. How to take care of your cut If your doctor used stitches or leora: ? Keep the wound fully dry for [...] these instructions at home: Medicines ? Take ejpt-nop-mrumlal and prescription medicines only as told by [...] included)...[facility] ED Patient Summaryon 56-23-5467YS Patient Summary [address] [address] Patient Discharge Instructions Person Information Name: YANETH DENNIS Age: 23 Years Arrival Date: 01/26/2024 15:27:23 Discharge Diagnosis: Abrasion of left little finger; Laceration of left leg Primary Care Physician: Bianka WOODS CNP Provider Information Primary Provider: Candelario Wilhelm DO Advanced Board Operator:None The exam and treatment you received in the Emergency Department were for an urgent problem and are not intended as complete care. It is important that you follow up with a doctor, nurse practitioner,or physician?s litigation legal assistant for ongoing care. If your symptoms [...] With: Address: When: Bianka WOODS [address] [place] [address] Business (1) In 3 days 01/29/2024 Comments: Call [...] provider. Patient Education Materials: Laceration Care, Adult, Ohmy-gt-Hqan A MESSAGE TO ALL PATIENTS REGARDING OPIOIDS PRESCRIPTION OPIOIDS: WHAT YOU NEED TO KNOW Prescription opioids can be used to help relieve hibqyqks-ud-hnvpnx pain and are often prescribed following a [...] your community drug take- back program or yourkentucky river medical centerAeromics mail-back program, or flush them down the toilet, following guidance from the Food and Drug Administration (www.fda.gov/Drugs/ResourcesForYou). (more content not included)...NormalSt. Vincent HospitalVaccinationson 32-09-5943Puldyhpkpgoz [id number]#1.00TIFFNormalSycamore Medical Center Medicine Office/Clinic Noteon 36-02-7902Euogsx Medicine Office/Clinic NoteChief Complaint Anxiety f/u HPI Staff 6 wk f/u Anxiety - Lexapro increased to the max of 30 mg daily. Pt states the increase has really helped with her anxiety. She has happy with the dose. Pt is feeling well and has no concerns. Pap - Does not recall having a pap despite having 2 children. BMP - 10.30.23 Lipids - 1.23.23 Total [...] She spends time together with the tabares registers. She feels comfortable if she has someone [...] with voice recognition artificial intelligence software, specifically Enomaly, Wagon and or Constant Insight. Substitutions may have occurred due to the inherent limitations of voice recognition and artificial intelligence software. Documentation services were performed after the patient or guardian consented to allow [employer] to record this visit. MAYRA financial reporting specialist and provider reviewed before signing. MAYRA: Morena Andrews/Pasted by: Carly Hernández Follow-up With When Contact Information Bianka WOODS CNP In [address] [place] [address]- Additional Instructions: Patient Education Obesity, Adult, Ydcg-jq-Ucgb Problem List/Past Medical History Ongoing Anxiety disorder due to med (more content not included)...[facility] HospitalComment on above:Result Comment: Electronically Signed By: Bianka WOODS CNP\.br\Date and Time Signed: 11/17/23 08:38 EST\.br\Electronically Co- Signed By: Carly Hernández\.br\Date and Time Co-Signed: 11/16/23 16:30 EST Ambulatory Visit Summaryon 41-65-8016Ekwqbvnosy Visit Summary YANETH DENNIS Leatha :2000 Visit Date:11/16/2023 Ambulatory Visit Instructions Your [...] When: In 6 months Where: [address] [place] [address]- Medications What How Much When Instructions New tizanidine (tiZANidine 4 mg Tab) 1 Tablets By Mouth Once a day (in the evening) Refills: 2 Pickup at [facility]/pharmacy #[id number] Unchanged escitalopram (escitalopram 10 mg Tab) 1 Tablets By Mouth Every day Take with 20mg tab fortotal daily dose of 30mg Pickup at [facility]/pharmacy #[id number] Unchanged escitalopram (Lexapro 20 mg Tab) 1 Tablets By Mouth Every day Take with 10mg tab for total daily dose of 30mg Pickup at [facility]/pharmacy #[id number] Unchanged ethinyl estradiol-norethindrone ( oral tablet) TAKE 1 TABLET BY MOUTH EVERYDAY Contact prescribing physician if questions or concerns Unchanged hydrOXYzine (hydrOXYzine hydrochloride 25 mg Tab) 1 Tablets By Mouth 4 times a day as needed for for anxiety Contact prescribing physician if questions or concerns Pharmacy Information [facility]/pharmacy #[id number]: [address] [place], [place] [id number] [phone] What How Much When Comments Stop Taking [...] food choices, such as grocery stores and Lumen[employer]. What are the signs or symptoms? The [...] a BMI of 40 (more content not included)...[facility] HospitalPatient Educationon 42-22-1416Rljcrrf EducationUniversity Of Michigan Hospitalology Obesity, Adult Obesity is having too much [...] food choices, such as grocery stores and [employer]. What are the signs or symptoms? The [...] How much exercise you get. ? Take buek-oyw-dtvnmtk and prescription medicines only as told by [...] you have with yo (more content not included)...NormalFisher [facility] Medicine Office/Clinic Noteon 81-66-7318Nmhuhn Medicine Office/Clinic NoteChief Complaint Depression HPI Staff [...] she stood up all by herself. Her email operations manager adds during the following day, when they [...] with voice recognition artificial intelligence software, specifically Enomaly, Wagon and or Constant Insight. Substitutions may have occurred due to the inherent limitations of voice recognition and artificial intelligence software. Documentation services were performed after patient or guardian consented to allow [employer] to record this visit. MAYRA Document (more content not included)...[facility] HospitalComment on above:Result Comment: Electronically Signed By: Bianka WOODS CNP\.br\Date and Time Signed: 10/09/23 12:43 EST\.br\Electronically Co-Signed By: Carly Hernández\.br\Date and Time Co-Signed: 10/05/23 16:46 ESTAmbulatory Visit Summaryon 10-05-2023 Ambulatory Visit Summary YANETH DENNIS Leatha :2000 Visit Date:10/05/2023 Ambulatory Visit Instructions Your [...] 75 mg Oral EC Tab) ethinyl estradiol-norethindrone (10/07 oral tablet) hydrOXYzine [...] PM EST With: Bianka WOODS CNP [facility] STAND/LAT 2Von 74-45-7628Xcijtutoc Clinic Ambulatory Visit Summaryon 51-10-4375Thaywwsvpf Visit Summary YANETH DENNIS :2000 Visit Date:07/20/2023 Ambulatory Visit Instructions Your Diagnosis Urinary retention Your Care Team Attending Physician - Clare Vazquez MD Primary Care Physician - Bianka WOODS [...] Clare Vazquez MD Where: [facility]Met[facility] CenterFormson 77-96-4449Npyiq [id number]#1.00TIFTrinity Health System West CampusOperative Reporton 78-25-9440Afmddsdau Report [id number]#1.00TIFTrinity Health System West CampusPatient Educationon 20-81-8779Xarvvhq EducationObstetrics and Gynecology Acute Urinary Retention, Female [...] these instructions at home: Medicines ? Take fwfj-gep-gpxxcch and prescription medicines only as told by [...] provider. Document Revised: 05/26/2021 Document Reviewed: 05/26/2021 [employer] Patient Education ? 2022 Workbooks.[facility] Screenson [id number]#1.00TIFF [facility] HospitalUrology Office/Clinic Noteon 42-97-6577Lsvvnbn Office/Clinic NoteChief Complaint new patient HPI Staff [...] with voice recognition artificial intelligence software, specifically Enomaly, Wagon and or Constant Insight. Substitutions may have occurred due to the inherent limitations of voice recognition and artificial intelligence software. 1. Urinary retention (R33.9: Retention of urine, unspecified) S/p exploration and revision of posterior spinal fusion T2-L3, hardware removal posterior spinal hardware, T2-L3, posterior spinal instrumentation, nonsegmental, T2-L3 at [facility] with Dr. Sumeet De La Cruz 07/11/23 -Dx w/ scoliosis Pt [facility] 07/17/23 with bender catheter from surgery [...] the patient. Follow-up With When Contact Information George LOWE, Clare Lilly, URL, URO Additional Instructions: 1 mos w/ PVR Patient Education Acute Urinary Retention, Female, Ykxi-cz-Ygvy Uyen Au, personally scribed for Dr. Vazquez on 07/20/2023 [...] Co-Signed: 07/20/23 09:35 EDT\.br\Electronically Co-Signed By: Uyen Ugalde\.br\Date and Time Co- Signed: 07/20/23 09:49 EDTAdmission Noteon 41-75-8190Ykgctikta Note [id number]#1.00TIFFNormalSt. Vincent HospitalAuto Diffon 29-88-5698Bsbbwqauo/100 WBC (Bld)0.4 %Normal0.0-2.0St. [facility] HospitalComment on above:Order Comment: Order Added by Discern Expert.Performed By: #### [id number], [id number], 7140266, [id number] ####[facility] [address] [place], [place] [address]Wqwkwjatu/Leukocytes Auto (Bld) [Pure # fraction]0.0 E9/LNormal0.0-0.2FChildren's Hospital of Columbus Comment on above:Order Comment: Order Added by Discern Expert.Performed By: #### [id number], 2421850, [id number], [id number] ####[facility] [address] [place], [place] [address]Zeyxrefkttp/100 WBC (Bld)2.9 %Normal 0.0-8.0St. Vincent HospitalComment on above:Order Comment: Order Added by Discern Expert.Performed By: #### [id number], 3427246, 3230024, [id number] ####[facility] [address] [place] [address] Eosinophils/Leukocytes Auto (Bld) [Pure # fraction]0.2 E9/LNormal0.0-0.5FChildren's Hospital of ColumbusComment on above:Order Comment: Order Added by Discern Expert.Performed By: #### 1010731, 0735001, 3247993, [id number] ####[address] [address]Ehiafkhzdag/100 WBC (Bld)21.0 %Ztshab02.0-50.0St. Vincent HospitalComment on above:Order Comment: Order Added by Discern Expert.Performed By: #### 8072329, 2810805, 4209670, [id number] ####[address] [address]Igtquigepwu/Leukocytes Auto (Bld) [Pure # fraction]1.7 E9/L Normal1.0-4.0St. Vincent HospitalComment on above:Order Comment: Order Added by Discern Expert.Performed By: #### [id number], 6549295, 2552580, 95768120 ####Robert [address] [address] Monocytes/100 WBC (Bld)8.2 %Normal4.0-14.0St. [facility] HospitalComment on above:Order Comment: Order Added by Discern Expert.Performed By: #### 0572778, 8411615, 4289584, 66852674 ####[address] [address]Wkmemmnfd/Leukocytes Auto (Bld) [Pure # fraction] 0.7 E9/LNormal0.2-1.0St. [facility] HospitalComment on above:Order Comment: Order Added by Discern Expert.Performed By: #### 6296249, 3150534, 0737999, 32377154 ####[address] [address]Lopsognadmq/100 WBC (Bld)67.5 %Hokpmw44.0-75.0[facility] Comment on above:Order Comment: Order Added by Discern Expert.Performed By: #### 9766556, 9797804, 9947031, [id number] ####[address] [place], [place] [address]Yvifqhynrcs/Leukocytes Auto (Bld) [Pure # fraction]5.6 E9/LNormal2.0-7.5FChildren's Hospital of ColumbusComment on above:Order Comment: Order Added by Discern Expert.Performed By: #### 4530032, 4057816, 3226479, [id number] ####[address] [address]SMKhy 61-91-0450Bpcqfdfufo [Mass/Vol]0.6 mg/dL Normal0.5-1.3FChildren's Hospital of ColumbusComment on above:Performed By: #### 6674533, 7958391, 0425830, 55114762 ####[address] [address]Icuh nitrogen [Mass/Vol]6 mg/dLNormal 5-21St. Vincent HospitalComment on above:Performed By: #### 5451091, 2928420, 7279360, 81385866 ####[address] [address]Ucwz nitrogen/Creatinine [Mass ratio]10 No Units Muhnxc82-80CdsrhiSt. Vincent HospitalComment on above:Performed By: #### 3202929, 9837254, 2195022, 08016768 ####[address] [address]Qpgsu gap [Moles/Vol]8 mmol/LNormal 6-16St. Vincent HospitalComment on above:Performed By: #### 2449805, 5389830, 4678068, 55386874 ####[address] [address]Rygdtep [Mass/Vol]8.8 mg/dLLow8.9-11.1FChildren's Hospital of ColumbusComment on above:Performed By: #### 4986383, 2008029, 7004447, 88252021 ####[facility] [address] [place], [place] [address]Hnnnqocc [Moles/Vol]104 mmol/BXgrezd643-616IexkoxSt. Vincent Hospital Comment on above:Performed By: #### 2013494, 0527718, 8571362, 24723234 ####[address] [place], [place] [address]TC8 [Moles/Vol]27 mmol/AHelshq76-48PoluhaSt. Vincent HospitalComment on above: Performed By: #### 3193987, 0042543, 5221044, 34868081 ####[address] [place], [place] [address]Uvmorcq [Mass/Vol]118 mg/dL Xoipln69-698ZcktdtSt. Vincent HospitalComment on above:Result Comment: If this glucose result represents a fasting glucose, interpretation should refer tothe following reference range: 55-99 mg/dLPerformed By: #### 8551540, 6556084, 0020026, 84898353 ####[address] [place], [place] [address]Rrholomxj [Moles/Vol]3.1 mmol/LLow3.5-5.3FChildren's Hospital of ColumbusComment on above:Performed By: #### 8277975, 8893083, 2740583, 77208168 ####[address] [address]Mbofgr [Moles/Vol]136 mmol/VEacaaw357-479VxbuomSt. Vincent HospitalComment on above:Performed By: #### 2356339, 0369198, 7931221, [id number] ####[address] [place], [place] [address]ECB w/ Auto Diff on 94-00-9577Evpcckygvdn distribution width (RBC) [Ratio]14.0 %Hzhyja80.9-14.2 St[facility] Vincent HospitalComment on above:Performed By: #### 8332060, 3459848, 3232381, 02460551 ####[address] [place], [place] [address]Vtvaaezrdu (Bld) [Volume fraction]27.7 %Low34.0-46.0St. Vincent HospitalComment on above:Performed By: #### 4763739, 4526913, 7694463, 49294839 ####[address] [address]Vbzjwykzdu (Bld) [Mass/Vol]9.2 g/dLLow12.0-16.0St. Vincent HospitalComment on above:Performed By: #### 1821353, 5969757, 8466567, 64343281 ####[address] [address]JOV (RBC) [Entitic mass]30.0 piUabmkw30.0-34.0[facility] Comment on above:Performed By: #### 4782314, 8503299, 5302444, 14443768 ####[address] [address]IPYM (RBC) [Mass/Vol]33.3 g/yTHtagwe56.4-36.0St. Vincent HospitalComment on above:Performed By: #### 6194315, 4758706, 4998358, 28826959 ####[address] [address]JWU (RBC) [Entitic vol]90.1 dPCfppxv53.0-100.0St. Vincent HospitalComment on above:Performed By: #### 2273909, 0125247, 2075166, 97298653 ####[address] [address]Ddkfhsqy mean volume (Bld) [Entitic vol]7.2 fLNormal6.4-10.8St. Vincent HospitalComment on above:Performed By: #### 1045196, 3016658, 2613221, 96142589 ####[address] [address]Zjdmghrmn (Bld) [#/Vol]232.0 E9/L Zepkzd706.0-500.0St. Vincent HospitalComment on above:Performed By: #### 7557032, 7963496, 6632035, 53309843 ####[facility] [address] [place], [place] [address]AOK (Bld) [#/Vol]3.1 E12/LLow4.3-5.9 [facility] HospitalComment on above:Performed By: #### 6535125, 5966178, 0016818, 41160151 ####[facility] [address] [place], [place] [address]SDK corrected for nucl RBC Auto (Bld) [#/Vol]8.3 E9/LNormal 4.0-11.0St. Vincent HospitalComment on above:Performed By: #### 3797270, 2433335, 6514649, 00525929 ####[facility] [address] [place], [place] [address]XOOLLICEGJdeaeda By: SYSTEM SYSTEM on 07-17-2023 Anion gap [Moles/Vol]8 mmol/LNormal6 - 16 mEq/LFTMC RemisolCalcium [Mass/Vol]8.8 mg/dLLow8.9 - 11.1 mg/dLFAIRVIEW [facility] RemisolChloride [Moles/Vol]104 mmol/OFexgbj231 - 111 mmol/LFTMC RemisolCO2 [Moles/Vol]27 mmol/HDzfqun81 - 31 mmol/LFTMC Remisol Creatinine [Mass/Vol]0.6 mg/dLNormal0.5 - 1.3 mg/dLFAIRVIEW REGIONAL [facility] RemisolGFR/1.73 sq M.predicted among non-blacks MDRD (S/P/Bld) [Vol rate/Area]130 mL/min/1.73 m2 Normal>=59mL/min/1.73 m2FA[facility] Chem SComment on above:Interpretive Data: Chronic kidney disease could be indicated at eGFR's of less than 60 mL/min/1.73m2. Kidney failure is indicated at less than 15 mL/min/1.73m2.Glucose [Mass/Vol]118 mg/zAYrtlhg29 - 199 mg/dLFAIRVIEW REGIONAL MED[facility] RemisolComment on above:Interpretive Data: If this glucose result represents a fasting glucose, interpretation should referto the following reference range: 55-99 mg/dLPotassium [Moles/Vol]3.1 mmol/LLow3.5 - 5.3 mmol/LFTMC RemisolSodium [Moles/Vol]136 mmol/PXexhee458 - 145 mmol/LFTMC RemisolUrea nitrogen [Mass/Vol]6 mg/dLNormal5 - 21 mg/dLFAIRVIEW REGIONAL [facility] RemisolUrea nitrogen/Creatinine [Mass ratio]10 mg/quWfroal29 - 20[facility] RemisolConsent for Treatmenton 68-10-9778Iaajpnr for Treatment [id number]#1.00[facility] HospitalDischarge Instructionson 78-76-5068Kltoovver Instructions [id number]#1.00[facility] Clinical Summaryon 84-54-0939QX Clinical Summary [id number] ED Clinical Summary Person Information Name: YANETH DENNIS [facility] Age: 22 Years : 2000 Sex: Female Language: [place] Islander PCP: Bianka WOODS CNP Marital Status: Single Phone: [phone] Visit Id: Visit Reason: Medical problem - [...] 07/17/2023 16:12:29 07/17/2023 16:12:29 07/17/2023 16:12:29 ADDRESS: [address] [facility] [phone] PHYS DOC NOTES: MEDICAL INFORMATION: Prescriptions Given: New Medications [facility]/pharmacy #[id number], [address], [place] [id number], [phone] lorazepam (Ativan 1 mg Tab) 1 Tablets By Mouth 3 times a day for 3 Days. Refills: 0. Medications to Continue Taking That Have Changed [facility]/pharmacy #[id number], [address], [place] [id number], [phone] START: escitalopram (Lexapro 20 mg Tab) 1 [...] day. Refills: 11. ethinyl estradiol-norethindrone (Junel Fe 10/07 oral tablet) TAKE 1 TABLET BY MOUTH EVERY DAY. hydrOXYzine (hydrOXYzine hydrochloride 25 mg Tab) 1 Tablets By Mouth 4 times a day as needed for anxiety. Refills: 3. PATIENT EDUCATION INFORMATION: Instructions: Hypokalemia; Generalized Anxiety Disorder, Adult Follow up: With: Address: When: Bianka WOODS [address] [place] [address] Business (1) In 3 days 07/20/2023 DIAGNOSIS: Anxiety; Chills; HypokalemiaNormalFisher Appling Medical CenterED Note-Physicianon 01-08-8711IX Note-PhysicianBasic Information Time Seen: Ilya Patel DO 07/17/2023 13:43 Chief Complaint Pt reports back surgery on @ [facility] for scoliosis. Pt presents with bender catheter [...] Daily, # 30 tab(s), Refills(s) 0, Pharmacy: [facility]/pharmacy #[id number], 172.7, cm, 07/17/23 13:52:00 EDT, Height/Length Dosing, 95.5, kg, 07/17/23 13:52:00 EDT, Weight Dosing lorazepam, 1 mg = 1 tab(s), Oral, TID, X 3 day(s), # 9 tab(s), Refills(s) 0, Pharmacy: [facility]/pharmacy#[id number], 172.7, cm, 07/17/23 13:52:00 EDT, Height/Length Dosing, [...] In 3 days 07/20/2023 EDT [address] [place] [address]- Business (1) Additional Instructions: Patient Education Hypokalemia Generalized Anxiety Disord (more content not included)...[facility] HospitalComment on above:Result Comment: Electronically Signed By: Max RAMOS, Jermain\.br\Date and Time Signed: 07/17/2316:06 EDT\.br\Electronically Co-Signed By: Ilya Patel DO\.br\Date and Time Co- Signed: 07/17/23 18:38 EDTED Patient Education Noteon 40-82-2012WL Patient Education NoteGastroenterology Hypokalemia Hypokalemia means that [...] such as yogurt. General instructions ? Take oviy-bls-tgzwwgu and prescription medicines only as told by [...] provider. Document Revised: 05/19/2022 Document Reviewed: 05/19/2022 [employer] Patient Education ? 2022 [employer] Mental and Behavioral Health Generalized Anxiety Disorder, [...] with TAYLA often wor (more content not included)...[facility] Patient Summaryon [id number] Patient Summary [address] [address] Patient Discharge Instructions Person Information Name: YANETH DENNIS Age: 22 Years Arrival Date: 07/17/2023 13:35:03 Discharge Diagnosis: Anxiety; Chills; Hypokalemia Primary Care Physician: Bianka WOODS CNP Provider Information Primary Provider: Ilya Patel DO Advanced Board Operator:Jermain Santana PA-C The exam and treatment you received in the Emergency Department were for an urgent problem and are not intended as complete care. It is important that you follow up with a doctor, nurse practitioner,or physician?s litigation legal assistant for ongoing care. If your symptoms [...] Instructions: With: Address: When: Bianka WOODS [address] [place] [address] Business (1) In 3 days 07/20/2023 In the event that this physician does not participate in your insurance network, please consult with your insurance company to find a nearby participating provider. Patient Education Materials: Hypokalemia; Generalized Anxiety Disorder, Adult A MESSAGE TO ALL PATIENTS REGARDING OPIOIDS PRESCRIPTION OPIOIDS: WHAT YOU NEED TO KNOW Prescription opioids can be used to help relieve mnswnxjq-xm-tccejx pain and are often prescribed following a [...] your community drug take- back program or yourElixserve mail-back program, or flush them down the toilet, following guidance from the Food and Drug Administration (www.fda.gov/Drugs/ResourcesForYou). ? Visit www.cdc.gov/drugoverdose to learn about the risks of opioids abuse and overdose. ? If you believe you may be struggling with addiction, tell your health patient centered care specialist and ask for guidance or call [facility]?S National Helpline at [phone] (more content not included)...[facility]ina HospitalHEMATOLOGYOrdered By: SYSTEM SYSTEM on 58-02-4607Yzabxcntl/100 WBC (Bld)0.4 %Normal0.0 - 2.0 %[facility] HemeAutoSSBasophils/Leukocytes Auto (Bld) [Pure # fraction]0.0 E9/LNormal0.0 - 0.2 E9/LFTMC HemeAutoSSEosinophils/100 WBC (Bld)2.9 %Normal0.0 - 8.0 %[facility] HemeAutoSSEosinophils/Leukocytes Auto (Bld) [Pure # fraction]0.2 E9/LNormal0.0 - 0.5 E9/LFTMC HemeAutoSSLymphocytes/100 WBC (Bld)21.0 %Bjwdjk83.0 - 50.0 %FT HemeAutoSSLymphocytes/Leukocytes Auto (Bld) [Pure # fraction]1.7 E9/LNormal1.0 - 4.0 E9/LFTMC HemeAutoSSMonocytes/100 WBC (Bld)8.2 %Normal4.0 - 14.0 %FT HemeAutoSSMonocytes/Leukocytes Auto (Bld) [Pure # fraction]0.7 E9/LNormal0.2 - 1.0 E9/LFTMC HemeAutoSSNeutrophils/100 WBC (Bld)67.5 %Ukiizw71.0 - 75.0 %FT HemeAutoSSNeutrophils/Leukocytes Auto (Bld) [Pure # fraction]5.6 E9/LNormal2.0 - 7.5 E9/LFTMC HemeAutoSSHEMATOLOGYOrdered By: Samantha Polo on 07-17-2023 Erythrocyte distribution width (RBC) [Ratio]14.0 %Lbsymw50.9 - 14.2 %[facility] HemeAutoSSHematocrit (Bld) [Volume fraction]27.7 %Low34.0 - 46.0 %[facility] HemeAutoSSHemoglobin (Bld) [Mass/Vol]9.2 g/dLLow12.0 - 16.0 gm/dLFTMC HemeAutoSS MCH (RBC) [Entitic mass]30.0 vdVpwcbt23.0 - 34.0 pgFTMC HemeAutoSSMCHC (RBC) [Mass/Vol]33.3 g/zKVrmqnv97.4 - 36.0 gm/dLFTMC HemeAutoSSMCV (RBC) [Entitic vol] 90.1 pPAgnwpq45.0 - 100.0 fLFTMC HemeAutoSSPlatelet mean volume (Bld) [Entitic vol]7.2 fLNormal6.4 - 10.8 fLFTMC HemeAutoSSPlatelets (Bld) [#/Vol]232.0 E9/L Fefbff414.0 - 500.0 E9/LFTMC HemeAutoSSRBC (Bld) [#/Vol]3.1 E12/LLow4.3 - 5.9 E12/LFTMC HemeAutoSSWBC corrected for nucl RBC Auto (Bld) [#/Vol]8.3 E9/LNormal 4.0 - 11.0 E9/LFMEM[facility] HemeAutoSSUA With Cult Reflexon 41-17-3019Avtfxyblc Ql (U) NegativeNormalNegativeSt. Vincent HospitalComment on above:Performed By: #### [id number] ####Jakob [facility] [address] [place], [place] [address]Nmombcz (U)CLEARNormalClearSt. Vincent HospitalComment on above: Performed By: #### [id number] ####Jakob [facility] [address] [place], [place] [address]Ugugq (U)YELLOWNormalYellowSt. Vincent HospitalComment on above:Performed By: #### [id number] ####[address] [place], [place] [address]Qowfdnyoqe cells.squamous LM.HPF (Urine sed) [#/Area]2-2Igdhzo1-2Vvxknv [facility] Cross HospitalComment on above:Performed By: #### [id number] ####Robert [address] [address]Ljrzbmc Test strip (U) [Mass/Vol]NegativeNormal NegativeSt. Vincent HospitalComment on above:Performed By: #### [id number] ####[address] [address] Hemoglobin Ql (U)3+AbnormalNegativeSt. Vincent HospitalComment on above: Performed By: #### [id number] ####[address] [address]Fdwtvtx (U) [Mass/Vol]NegativeNormalNegativeSt. Vincent HospitalComment on above:Performed By: #### [id number] ####[address] [address] [place].plasma/[place].RBC (Bld) [Mass ratio]5-0Vuujos0-5Zuucxg [facility] Cross HospitalComment on above:Performed By: #### [id number] ####[address] [address]Xypayta Ql (U)NegativeNormal NegativeSt. Vincent HospitalComment on above:Performed By: #### [id number] ####[address] [address]gQ (U)5.5 [pH]Invalid Interpretation Code5.0-9.0St. Vincent HospitalComment on above:Performed By: #### [id number] ####[address] [address]Bcoqgwv (U) [Mass/Vol]TRACEAbnormal NegativeSt. Vincent HospitalComment on above:Performed By: #### [id number] ####Jakob [address] [address] Specific gravity (U) [Rel density]<=1.005Invalid Interpretation Code1.005-1.030 [facility] Vincent HospitalComment on above:Performed By: #### [id number] ####Robert [address] [address]Gigi of Urine collection methodFoleyCleveland Clinic Medina HospitalComment on above:Performed By: #### [id number] ####[address] [address]Zgkqjkiumqaj Qn (U)0.2 {Jakob'U}/dLNormal0.0-1.0 [facility] Vincent HospitalComment on above:Performed By: #### [id number] ####[address] [address]ROD Auto Ql (U)TRACEAbnormalNegativeSt. Vincent HospitalComment on above: Performed By: #### [id number] ####[address] [address]KFW LM.HPF (Urine sed) [#/Area]1-5Xvijjw8-4CembqwChildren's Hospital of ColumbusComment on above:Performed By: #### [id number] ####[address] [address]Usysj LM Ql (Urine sed)TRACENormalSt. Vincent HospitalComment on above:Performed By: #### [id number] ####[address] [address]HDFDAOSQCIKznlvru By: Kailyn Loyola on 95-57-0326Hzcfdwrge Ql (U) Negative (07/17/23 2:59 PM)NormalNegativeFTMC UA Auto SSClarity (U)Clear (07/17/23 2:59 PM)NormalClearFTMC UA Auto SSColor (U)Yellow (07/17/23 2:59 PM)NormalYellowFAIRVIEW REGIONAL MEDICAL [facility] UA Auto SSEpithelial cells.squamous LM.HPF (Urine sed) [#/Area]0-2 /HPFNormal0-2/HPFFAIRVIEW REGIONAL MEDICAL CENTER [facility] UA Auto SSGlucose Test strip (U) [Mass/Vol]Negative (07/17/23 2:59 PM)NormalNegativeFAIRVIEW REGIONAL MEDICAL [facility] UA Auto SSHemoglobin Ql (U)3+ *ABN* (07/17/23 2:59 PM)Invalid Interpretation CodeNegativeFAIRVIEW REGIONAL MEDICAL [facility] UA Auto SSKetones (U) [Mass/Vol]Negative (07/17/23 2:59 PM)NormalNegativeFAIRVIEW REGIONAL [facility]ICAL [facility] UA Auto SSLithium.plasma/[place].RBC (Bld) [Mass ratio]0-3 /HPFNormal0-3/HPFFAIRVIEW REGIONAL MEDICAL CENTER [facility] UA Auto SSNitrite Ql (U)Negative (07/17/23 2:59 PM)NormalNegativeFAIRVIEW REGIONAL [facility]ICAL [facility] UA Auto SSpH (U)5.5 *NA* (07/17/23 2:59 PM)Invalid Interpretation Code5.0 - 9.0[facility] UA Auto SSProtein (U) [Mass/Vol]Trace *ABN* (07/17/23 2:59 PM)Invalid Interpretation CodeNegativeFAIRVIEW REGIONAL MEDICAL [facility] UA Auto SSSpecific gravity (U) [Rel density]<=1.005 *NA* (07/17/23 2:59 PM)Invalid Interpretation Code1.005 - 1.030FA[facility] UA Auto SSUA Spec DescFoley (07/17/23 2:59 PM)NormalFAIRVIEW REGIONAL MEDICAL CENTER – [facility] UA Auto SSUrobilinogen Qn (U)0.9023059 {Jakob'U}/dLNormal0.0 - 1.0 EU/dLFT UA Auto SSWBC Auto Ql (U)Trace *ABN* (07/17/23 2:59 PM)Invalid Interpretation CodeNegativeFAIRVIEW REGIONAL MEDICAL [facility] UA Auto SSWBC LM.HPF (Urine sed) [#/Area]0-5 /HPFNormal0-5/HPFFAIRVIEW REGIONAL MEDICAL CENTER [facility] UA Auto SSYeast LM Ql (Urine sed) Trace (07/17/23 2:59 PM)NormalFAIRVIEW REGIONAL MEDICAL CENTER – [facility] UA Auto SSeGFRon 13-58-4087KBS/1.73 sq M.predicted among non-blacks MDRD (S/P/Bld) [Vol rate/Area]130 mL/min/1.73 r0Kfzxbq>=59 [address] [facility] HospitalComment on above:Order Comment: Order added by Discern Expert.Result Comment: Chronic kidney disease could be indicated at eGFR's of less than 60 mL/min/1.73m2. Kidney failure is indicated at less than 15 mL/min/1.73m2.Performed By: #### [id number], [id number], 6368962, [id number] ####[facility] [address] [place] [address] Admission Noteon 11-42-3576Zimcfhigm Note [id number]#1.00TIFFCleveland Clinic Medina HospitalInsurance Correspondenceon 02-85-6958Otnxoyexh Correspondence [id number]#1.00TIFFCleveland Clinic Medina HospitalFormson [id number]#1.00TIFF [facility] HospitalConsultation Noteon 75-96-2721Pptwxphxuosk Note [id number]#1.00CD:127NoNorwalk Memorial HospitalFaholyoke medical center Medicine Office/Clinic Noteon 71-13-4968Jtxfaw Medicine Office/Clinic NoteChief Complaint Abd pain HPI [...] leg did not move. She goes to [facility] for the back. The patient states that [...] decreased. Her menstrual cycles are irregular. Her email operations manager states that they have a familial history [...] no records from the current work-up at [facility]. She is going to take the [...] with voice recognition artificial intelligence software, specifically Enomaly, Wagon and or Constant Insight. Substitutions may have occurred due to the inherent limitations of voice recognition and artificial intelligence software. Documentation services were performed after patient or guardian consented to allow [employer] to record this visit. MAYRA financial reporting specialist and provider reviewed before signing. MAYRA: [...] Co-Signed: 06/20/23 18:[address] Reporton 32-27-1576ECI - CT [id number]#1.00CD:127 [facility] HospitalRAD - MISCon 55-77-9074NOW - MISC [id number]#1.00CD:127[facility] HospitalRAD - [id number]#1.00CD:127[facility] HospitalComment on above:Other Comment: INCOMPLETE SCAN.NDWRAD - MRI Reporton 52-18-3851JMT - MRI Report [id number]#1.00CD:127[facility]ina HospitalAmbulatory Visit Summaryon 03-78-4245Bwvoyiytzc Visit Summary YANETH DENNIS :2000 Visit Date:06/20/2023 [...] Complete the Following CT Abdomen/Pelvis w/ Contrast, 10/03/23, Routine, Order for future visit, Transport Mode: Ambulatory, Reason: Other (please specify), Reason: RLQ abdominal pain, No, No, RLQ abdominal painNormalBrown Memorial Hospital LUMBAR SPINE WO IVCONon 76-66-3873Btegeqwby [facility] Lumbar spine WO contraston 05-24-2023* * *Final [...] are within normal limits. DIVISION OF RADIOLOGYProvider, [facility] [place] - 05/24/2023 * * *Final Report* * [...] and assume there are 5 lumbar-type vertebrae. Precision Machine Operator[facility] Transcribe Date/Time: May 24 2023 10:49A Dictated by : SONI THOMAS MD This examination was interpreted and the report reviewed and electronically signed by: SONI THOMAS MD on May 24 2023 10:57AM EST [facility] HospitalRad[facility] Study observation (narrative)[facility] Lumbar spine WO contrastOrdered By: Ccf Provider on 71-02-2617Vxymopyru ClinicTransfer Inon 69-34-6698Goetzhnm [id number]#1.00CD:127 NormalFisher Holy Cross HospitalXR SCOLIOSIS PA STAND/LAT 2Von 04-24-2023 [facility] for Release of Medical Recordson 91-54-3666Lrio for Release of Medical [id number]#1.00CD:127Normal Jakob [facility] HospitalFaholyoke medical center Medicine Office/Clinic Noteon 96-31-1594Uswkgi Medicine Office/Clinic NoteChief Complaint Est Care HPI [...] inhalers. The referral for neurosurgery went to [facility]. She states that she has MyChart but her referral has not been set up through [facility]. Her surgery was done at [facility] when she was 17 years old. [...] with voice recognition artificial intelligence software, specifically Enomaly, Wagon and or Constant Insight. Substitutions may have occurred with voice recognition and artificial intelligence software. ATTESTATION: Documentation servi (more content not included)...[facility] HospitalComment on above:Result Comment: Electronically Signed By: Biakna WOODS CNP\.br\Date and Time Signed: 04/12/23 12:12 EDT\.br\Electronically Co- Signed By: José Bertrand\.br\Date and Time Co-Signed: 04/12/23 11:34 EDT Ambulatory Visit Summaryon 57-03-7223Dhlhyrmwgv Visit Summary YANETH DENNIS :2000 Visit Date:04/11/2023 [...] PM EDT With: Bianka WOODS CNP [facility] HospitalPatient Educationon 32-34-2476Mkumktl EducationGastroenterology Obesity, Adult Obesity is having too [...] food choices, such as grocery stores and [employer]. What are the signs or symptoms? The [...] How much exercise you get. ? Take bspk-kht-hscofvt and prescription medicines only as told by [...] you have with yo (more content not included)...[facility] HospitalCHEMISTRYOrdered By: SYSTEM SYSTEM on 67-55-7958Tohkkny [Mass/Vol]4.3 g/dLNormal3.3 - 5.0 gm/dLFTMC RemisolAlbumin/Globulin [Mass ratio]1.2 {ratio}Normal1.1 - 2.2FTMC RemisolALP [Catalytic activity/Vol]64 [iU]/mZpolxx92 - 98 Int._Unit/LFTMC RemisolALT No additional P-5'-P [Catalytic activity/Vol]17 [iU]/dNormal6 - 46 Int._Unit/LFTMC RemisolAnion gap [Moles/Vol]11 mmol/LNormal6 - 16 mEq/LFTMC RemisolAST [Catalytic activity/Vol]18 [iU]/dNormal5 - 43 Int._Unit/LFTMC RemisolBilirubin [Mass/Vol]0.8 mg/dLNormal0.0 - 1.1 mg/dLFTMC RemisolCalcium [Mass/Vol]9.1 mg/dL Normal8.9 - 11.1 mg/dLFTMC RemisolChloride [Moles/Vol]106 mmol/MBcrlou823 - 111 mmol/LFTMC RemisolCholesterol [Mass/Vol]135 mg/aEMtkpel370 - 200 mg/dLFTMC RemisolCholesterol in HDL [Mass/Vol]52 mg/dLInvalid Interpretation CodeFTMC RemisolCholesterol in LDL [Mass/Vol]64 mg/dLNormal<=129mg/dLFTMC Remisol Cholesterol in VLDL [Mass/Vol]18 mg/dLNormal7 - 40 mg/dLFT RemisolCO2 [Moles/Vol]23 mmol/ONlymcx00 - 31 mmol/LFTMC RemisolCreatinine [Mass/Vol]0.7 mg/dLNormal0.5 - 1.3 mg/dLFTMC RemisolGFR/1.73 sq M.predicted among blacks MDRD (S/P/Bld) [Vol rate/Area]mL/min/1.73 p2Dpqwif>=59mL/min/1.73 m2FT Chem S GFR/1.73 sq M.predicted among non-blacks MDRD (S/P/Bld) [Vol rate/Area] mL/min/1.73 f4Whymcw>=59mL/min/1.73 m2[facility] Chem SGlobulin (S) [Mass/Vol]3.5 g/dL Normal1.4 - 4.0 gm/dLFT RemisolGlucose [Mass/Vol]85 mg/rECtvxqr78 - 199 mg/dL [facility] RemisolPotassium [Moles/Vol]3.5 mmol/LNormal3.5 - 5.3 mmol/LFTMC Remisol Protein [Mass/Vol]7.8 g/dLNormal6.0 - 7.8 gm/dLFT RemisolSodium [Moles/Vol]136 mmol/KBvwplb160 - 145 mmol/LFTMC RemisolTriglyceride [Mass/Vol]89 mg/dLNormal <=149mg/dLFAIRVIEW REGIONAL MEDICAL [facility]ENTER [facility] RemisolTSH Qn0.88 m[IU]/LNormal0.34 - 5.60 mcIU/mLFT Remisol Urea nitrogen [Mass/Vol]12 mg/dLNormal5 - 21 mg/dLFT RemisolUrea nitrogen/Creatinine [Mass ratio]17 mg/ivIzexjo61 - 20FTMC RemisolHEMATOLOGY Ordered By: SYSTEM SYSTEM on 82-92-2834Eldfihbta/100 WBC (Bld)0.7 %Normal0.0 - 2.0 %[facility] HemeAutoSSBasophils/Leukocytes Auto (Bld) [Pure # fraction]0.1 E9/L Normal0.0 - 0.2 E9/LFTMC HemeAutoSSEosinophils/100 WBC (Bld)1.0 %Normal0.0 - 8.0 %[facility] HemeAutoSSEosinophils/Leukocytes Auto (Bld) [Pure # fraction]0.1 E9/L Normal0.0 - 0.5 E9/LFTMC HemeAutoSSLymphocytes/100 WBC (Bld)28.3 %Ucftnh32.0 - 50.0 %[facility] HemeAutoSSLymphocytes/Leukocytes Auto (Bld) [Pure # fraction]2.4 E9/L Normal1.0 - 4.0 E9/LFTMC HemeAutoSSMonocytes/100 WBC (Bld)6.8 %Normal4.0 - 14.0 %[facility] HemeAutoSSMonocytes/Leukocytes Auto (Bld) [Pure # fraction]0.6 E9/LNormal 0.2 - 1.0 E9/LFTMC HemeAutoSSNeutrophils/100 WBC (Bld)63.2 %Azikdy55.0 - 75.0 % [facility] HemeAutoSSNeutrophils/Leukocytes Auto (Bld) [Pure # fraction]5.4 E9/LNormal 2.0 - 7.5 E9/LFTMC HemeAutoSSHEMATOLOGYOrdered By: Willa Merrill on 10-10-2022 Erythrocyte distribution width (RBC) [Ratio]13.6 %Liioof41.9 - 14.2 %[facility] HemeAutoSSHematocrit (Bld) [Volume fraction]42.4 %Vnvhzw16.0 - 46.0 %[facility] HemeAutoSSHemoglobin (Bld) [Mass/Vol]13.7 g/lQBtamlt87.0 - 16.0 gm/dLFTMC HemeAutoSSMCH (RBC) [Entitic mass]29.5 ndQmovwe86.0 - 34.0 pgFTMC HemeAutoSSMCHC (RBC) [Mass/Vol]32.4 g/kSVemgof46.4 - 36.0 gm/dLFTMC HemeAutoSSMCV (RBC) [Entitic vol]91.1 bHUbfgpw84.0 - 100.0 fLFTMC HemeAutoSSPlatelet mean volume (Bld) [Entitic vol]8.8 fLNormal6.4 - 10.8 fLFTMC HemeAutoSSPlatelets (Bld) [#/Vol]245.0 E9/UIggkci267.0 - 500.0 E9/LFTMC HemeAutoSSRBC (Bld) [#/Vol]4.7 E12/LNormal4.3 - 5.9 E12/LFTMC HemeAutoSSWBC corrected for nucl RBC Auto (Bld) [#/Vol]8.5 E9/LNormal4.0 - 11.0 E9/LF[facility] [place] HemeAutoSSCBC AUTO DIFFon 01-25-2022 BASO #0.1 103/ulNormal0.0-0.1[facility] HospitalComment on above:Performed By: #### PT, PTT #### [facility] [address] [place] [address] Dr. Sage WilksBasophils/100 WBC (Bld)0.7 %Normal0.2-2.0[facility] Comment on above:Performed By: #### PT, PTT #### [facility] [address] [place] [address] Dr. Sage Noonan #0.1 103/ulNormal0.0-0.7[facility] HospitalComment on above: Performed By: #### PT, PTT #### [facility] [address] [place] [address] Dr. Sage Liuosinophils/100 WBC (Bld)0.9 %Normal0.9-7.0The [facility] Comment on above:Performed By: #### PT, PTT #### [facility] [address] [place] [address] Dr. Sage Liurythrocyte distribution width (RBC) [Ratio]13.7 %Zfkkwe28.0-15.0 [facility] HospitalComment on above:Performed By: #### PT, PTT #### [facility] [address] [place] [address] Dr. Sage WilksHematocrit (Bld) [Volume fraction]41.1 %Jeymzz47.0-48.0The [facility] HospitalComment on above:Performed By: #### PT, PTT #### [facility] [address] [place] [address] Dr. Sage WilksHemoglobin (Bld) [Mass/Vol]13.1 g/dVTgvvll66.0-16.0The [facility] HospitalComment on above:Performed By: #### PT, PTT #### [facility] [address] [place] [address] Dr. Sage Oquendo #0.02 10e3/ulNormal0.00-0.03The [facility] on above:Performed By: #### PT, PTT #### [facility] [address] [place] [address] Dr. Sage Oquendo %0.3 %Normal0.0-0.5The [facility]Comdet[facility] on above: Performed By: #### PT, PTT #### [facility] [address] [place] [address] Dr. Sage Lanier #2.3 103/ulNormal1.2-3.8The [facility] HospitalComment on above:Performed By: #### PT, PTT #### [facility] [address] [place] [address] Dr. Sage Medeiroshocytes/100 WBC (Bld)29.3 %Prguwu11.5-60.0The [facility] on above:Performed By: #### PT, PTT #### [facility] [address] [place] [address] Dr. Sage MaurerUAL DIFF REQNONormalThe [facility] HospitalComdet[facility] on above: Performed By: #### PT, PTT #### [facility] [address] [place] [address] Dr. Sage Interiano (RBC) [Entitic mass]28.8 lnSiblqg22.7-34.0The [facility] on above:Performed By: #### PT, PTT #### [facility] [address] [place] [address] Dr. Sage Interiano (RBC) [Mass/Vol]31.9 g/gQMyjkev81.9-35.2[facility] on above:Performed By: #### PT, PTT #### [facility] [address] [place] [address] Dr. Sage Interiano (RBC) [Entitic vol]90.3 uQLlfjfn80.0-99.0The [facility] above:Performed By: #### PT, PTT #### [facility] [address] [place] [address] Dr. Sage Kee #0.5 103/ulNormal0.3-0.8The [facility] HospitalComment on above:Performed By: #### PT, PTT #### [facility] [address] [place] [address] Dr. Sage Mcdonaldocytes/100 WBC (Bld)6.6 %Normal1.7-12.0The [facility] Comment on above:Performed By: #### PT, PTT #### [facility] [address] [place] [address] Dr. Sage Hill #4.8 103/ulNormal1.4-6.5The [facility] HospitalComment on above:Performed By: #### PT, PTT #### [facility] [address] [place] [address] Dr. Sage Guzmanutrophils/100 WBC (Bld)62.2 %Aopbcl04.0-75.0The [facility] HospitalComment on above:Performed By: #### PT, PTT #### [facility] [address] [place] [address] Dr. Sage Myles mean volume (Bld) [Entitic vol]10.2 fLNormal9.5-13.5The [facility] HospitalComment on above:Performed By: #### PT, PTT #### [facility] [address] [place] [address] Dr. Sage WilksPLT239 103/jxFrmxtb098-884Fzr [facility] HospitalComment on above: Performed By: #### PT, PTT #### [facility] [address] [place] [address] Dr. Sage WilksRBC4.55 106/ulNormal4.20-5.40The [facility] on above:Performed By: #### PT, PTT #### [facility] [address] [place] [address] Dr. Sage WilksWBC7.7 103/ulNormal4.0-11.0[facility] HospitalComment on above: Performed By: #### PT, PTT #### [facility] [address] [place] [address] Dr. Sage WilksPREJannette QUANT HCGon [id number] QUANT<1NormalDelaware County Hospital Comment on above:Performed By: #### PREGQNT, TSH #### [facility] [address] [place] [address] Dr. Sage Forte RANGESSt. Francis HospitalComment on above: Result Comment: 5-50 0-1 WEEK 40-300 1-2 WEEKS 100-1,000 2-3 WEEKS 500-6,000 3-4 WEEKS 5,000-200,000 1-2 MONTHS 10,000-100,000 2-3 MONTHS 3,000-50,000 2ND TRIMESTER 1,000-50,000 3RD TRIMESTERPerformed By: #### PREGQNT, TSH #### [facility] [address] [place] [address] Dr. Sage WilksPROTIMEon [id number] Coag (PPP) [Relative time]0.96 {INR} NormalDelaware County HospitalComment on above:Performed By: #### PT, PTT #### [facility] [address] [place] [address] Dr. Sage Castillo FOR[facility] HOSPITALE BELOWCleveland Clinic Children's Hospital for RehabilitationComment on above:Result Comment: DESIRED INR: 2.0 - 3.0 CONDITIONS NOT LISTED BELOW 2.5 - 3.5 FOR PROSTHETIC HEART VALVE REPLACEMENT 2.5 - 3.5 RECURRENT THROMBOSIS Performed By: #### PT, PTT #### [facility] [address] [place] [address] Dr. Sage WilksPT Coag (PPP) [Time]10.4 sNormal9.0-11.6The [facility] Comment on above:Performed By: #### PT, PTT #### [facility] [address] [place] [address] Dr. Sage Akhtar [id number] Coag (Bld) [Time]27.6 yHhlkjk91.3-36.2[facility] HospitalComment on above:Performed By: #### PT, PTT #### [facility] [address] [place] [address] Dr. Sage Singh [id number] uIU/mLNormal0.358-3.740Del[facility] HospitalComment on above:Performed By: #### PREGQNT, TSH #### [facility] [address] [place] [address] Dr. Sage Warren [facility] HospitalComment on above: Result Comment: <0.34 UIU/ml HYPERTHYROID 0.34-5.60 UIU/ml EUTHYROID >5.60 UIU/ml HYPOTHYROIDPerformed By: #### PREGQNT, TSH #### [facility] [address] [place] [address] Dr. Sage WilksRiya W MANUAL DIFFon [id number]Brc [facility] HospitalComment on above:Performed By: #### CBC #### [facility] [address] [place] [address] Miguel Ángel KarenATYPICAL LYMPH #NormalGrand Lake Joint [facility] on above: Performed By: #### CBC #### [facility] [address] [place] [address] Miguel Ángel KarenATYPICAL LYMPH %NormalDelaware County HospitalComdetroit receiving hospital on above: Performed By: #### CBC #### [facility] [address] [place] [address] Miguel Ángel KarenBAND #0.3 103/ulNormal0.0-0.3The [facility] HospitalComdetroit receiving hospital on above: Performed By: #### CBC #### [facility] [address] [place] [address] Miguel Ángel KarenBAND %2 %Normal0-5The [facility] HospitalComment on above:Performed By: #### CBC #### [facility] [address] [place] [address] Miguel Ángel KarenBASOM #0.00 103/ulNormal0.00-0.10The [facility] HospitalComment on above:Performed By: #### CBC #### [facility] [address] [place] [address] Miguel Ángel KarenBASOM %0.0 %Critically low0.2-2.0The [facility] HospitalComment on above:Performed By: #### CBC #### [facility] [address] [place] [address] Miguel Ángel KarenBLAST #NormalThe [facility]psom HospitalComment on above:Performed By: #### CBC #### [facility] [address] [place] [address] Miguel Ángel KarenBLAST %NormalDelaware County HospitalComment on above:Performed By: #### CBC #### [facility] [address] [place] [address] Miguel Ángel KarenCORRECTED WBCNormal4.0-11.0[facility] Hospitalment on above: Performed By: #### CBC #### [facility] [address] [place] [address] Miguel Ángel KarenEOS #0.42 103/ulNormal0.00-0.70The [facility] Systemment on above:Performed By: #### CBC #### [facility] [address] [place] [address] Miguel Ángel KarenEOS%3.0 %Normal0.9-7.0[facility] on above: Performed By: #### CBC #### [facility] [address] [place] [address] Miguel Ángel KarenGIANT PLATELETSSEENNormalThe [facility] HospitalComment on above: Performed By: #### CBC #### [facility] [address] [place] [address] Miguel Ángel FundtJNB43.3 %Critically low36.0-48.0The [facility] on above:Performed By: #### CBC #### [facility] [address] [place] [address] Miguel Ángel IbvytQIP02.5 g/dlCritically low12.0-16.0The [facility] HospitalComment on above:Performed By: #### CBC #### [facility] [address] [place] [address] Miguel Ángel KarenLYMPHM #3.06 103/ulNormal1.20-3.80The [facility] HospitalComment on above:Performed By: #### CBC #### [facility] [address] [place] [address] Miguel Ángel KarenLYMPHM%22.0 %Ctaqhd69.5-60.0The [facility] HospitalComment on above: Performed By: #### CBC #### [facility] [address] [place] [address] Miguel Ángel ImqxeNGY12.2 ooEioein59.7-34.0The [facility] HospitalComment on above: Performed By: #### CBC #### [facility] [address] [place] [address] Miguel Ángel MuogtZZCZ19.6 g/goEqrxjg04.9-35.2The [facility] HospitalComment on above: Performed By: #### CBC #### [facility] [address] [place] [address] Miguel Ángel ZkapwUHK95.6 aANlitpq97.0-99.0The [facility] HospitalComment on above: Performed By: #### CBC #### [facility] [address] [place] [address] Miguel Ángel KarenMETAMYELOCYTE #NormalThe [facility] HospitalComment on above:Performed By: #### CBC #### [facility] [address] [place] [address] Miguel Ángel KarenMETAMYELOCYTE %NormalThe [facility] HospitalComment on above:Performed By: #### CBC #### [facility] [address] [place] [address] Miguel Ángel KarenMONOM#0.97 103/ulCritically high0.30-0.80The [facility] on above:Performed By: #### CBC #### [facility] [address] [place] [address] Miguel Ángel KarenMONOM%7.0 %Normal1.7-12.0The Don HospitalComment on above: Performed By: #### CBC #### [facility] [address] [address] Miguel Ángel KarenMPV9.8 fLNormal9.5-13.5The [facility] HospitalComment on above: Performed By: #### CBC #### [facility] [address] [place] [address] Miguel Ángel KarenMYELOCYTE #NormalThe [facility] HospitalComment on above:Performed By: #### CBC #### [facility] [address] [place] [address] Miguel Ángel KarenMYELOCYTE %NormalThe [facility] HospitalComment on above:Performed By: #### CBC #### [facility] [address] [place] [address] Miguel Ángel KarenNRBCNormalThe [facility] HospitalComment on above:Performed By: #### CBC #### [facility] [address] [place] [address] Miguel Ángel VtgyxKBC216 103/znWsbjen849-100Jaa [facility] HospitalComment on above: Performed By: #### CBC #### [facility] [address] [place] [address] Miguel Ángel KarenRBC3.94 106/ulCritically low4.20-5.40The [facility] HospitalComment on above:Performed By: #### CBC #### [facility] [address] [place] [address] Miguel Ángel RyoraDXJ99.7 %Critically high11.0-15.0The [facility] HospitalComment on above:Performed By: #### CBC #### [facility] [address] [place] [address] Miguel Ángel KarenSEG #9.17 103/ulCritically high1.40-6.50The [facility] HospitalComment on above:Performed By: #### CBC #### [facility] [address] [place] [address] Miguel Ángel KarenSEG %66.0 %Pugbeo43.0-75.0The [facility] HospitalComment on above: Performed By: #### CBC #### [facility] [address] [place], [place] [address] Miguel Ángel WilsonenWBC13.9 103/ulCritically high4.0-11.0The [facility] Systemment on above:Performed By: #### CBC #### [facility] [address] [place], [place] [address] Miguel Ángel WilsonenCT ABD/PELV W CONon [id number] ABD/PELV W CONEXAMINATION: CT ABD/PELV W CON [...] Electronically authenticated by: HUBER BARAKAT Date: 2021-04-15 07:[address] [place], [place] [address]PROF 14(COMP METB)on [id number] [Mass/Vol]2.2 g/dL Critically low3.5-5.0The [facility] on above:Performed By: #### PT, PTT #### [facility] [address] [address] [address] Sage WilksAlbumin/Globulin [Mass ratio]0.6 {ratio}NormalThe [facility] HospitalComdetroit receiving hospital on above:Performed By: #### PT, PTT #### [facility] [address] [address] [address] Sage Christy [Catalytic activity/Vol]122 U/BUiqacw32-324Ayk [facility] on above:Performed By: #### PT, PTT #### [facility] [address] [address] [address] Sage Trinh [Catalytic activity/Vol]11 U/LNormal9-52The [facility] Comment on above:Performed By: #### PT, PTT #### [facility] [address] [place] [address] Dr. Sage Garcíaon gap [Moles/Vol]11.5 mmol/LNormalThe [facility] Comment on above:Performed By: #### PT, PTT #### [facility] [address] [address] [address] Sage WilksAST [Catalytic activity/Vol]14 U/YPynyxu92-03Lkj [facility] on above:Performed By: #### PT, PTT #### [facility] [address] [address] [address] Sage WilksBilirubin [Mass/Vol]0.1 mg/dLCritically low0.2-1.3The [facility] HospitalComment on above:Performed By: #### PT, PTT #### [facility] [address] [address] [address] Sage WilksCalcium [Mass/Vol]8.2 mg/dLCritically low8.4-10.2The [facility] on above:Performed By: #### PT, PTT #### [facility] [address] [address] [address] Sage WilksChloride [Moles/Vol]107 mmol/FBvuzsd02-711Hqu [facility] Comment on above:Performed By: #### PT, PTT #### [facility] [address] [address] [address] Sage WilksCO2 [Moles/Vol]24.3 mmol/SIwckux31.0-30.0The [facility] Comment on above:Performed By: #### PT, PTT #### [facility] [address] [address] [address] Sage WilksCreatinine [Mass/Vol]0.61 mg/dLNormal0.52-1.04The [facility] HospitalComment on above:Performed By: #### PT, PTT #### [facility] [address] [address] [address] Sage LiuGFR-AF LEBANESE>60Normal>=60The [facility] HospitalComment on above:Performed By: #### PT, PTT #### [facility] [address] [place] [address] Dr. Sage LiuGFR-NON AF LEBANESE>60Normal>=60The [facility] HospitalComment on above:Performed By: #### PT, PTT #### [facility] [address] [place] [address] Dr. Sage WilksGlobulin (S) [Mass/Vol]3.6 g/dLNormalThe [facility] HospitalComment on above:Performed By: #### PT, PTT #### [facility] [address] [address] [address] Sage WilksGlucose [Mass/Vol]91 mg/zPOsnyus93-461Gaa [facility] Comment on above:Performed By: #### PT, PTT #### [facility] [address] [address] [address] Sage WilksPotassium [Moles/Vol]3.8 mmol/LNormal3.4-5.0The [facility] Comment on above:Performed By: #### PT, PTT #### [facility] [address] [address] [address] Sage WilksProtein [Mass/Vol]5.8 g/dLCritically low6.1-8.2The [facility] HospitalComment on above:Performed By: #### PT, PTT #### [facility] [address] [place] [address] Dr. Sage WilksSodium [Moles/Vol]139 mmol/HHrjzlf080-924Znj [facility] Comment on above:Performed By: #### PT, PTT #### [facility] [address] [place] [address] Dr. Sage WilksUrea nitrogen [Mass/Vol]12.0 mg/dLNormal7.0-17.0The [facility] HospitalComment on above:Performed By: #### PT, PTT #### [facility] [address] [place] [address] Dr. Sage WilksUrea nitrogen/Creatinine [Mass ratio]19.7 mg/mgNormalThe [facility] HospitalComment on above:Performed By: #### PT, PTT #### [facility] [address] [place] [address] Dr. Sage Alas QUANTon [id number] Plasma Reagin, QuantNon-Reactive NormalNonRea<1:1The [facility] HospitalComment on above:Performed By: #### PT, PTT #### [facility] [address] [place] [address] Dr. Sage WilksASYMPTOMATIC COVID-19 ANTIGENon [id number] StatementSEE BELOW NormalThe [facility] on above:Result Comment: This test has [...] is revoked sooner.Performed By: #### CVDAGA #### [facility] [address] [place] [address] Miguel Ángel GarciaIazcsGTQW-WrQ-6 (COVID-19) RNA JENS+probe Ql (Unsp spec)NegativeNormal NEGATIVEThe [facility] HospitalComment on above:Result Comment: Negative results are presumptive. They do not preclude infection and should not be used as the sole basis for treatment decisions. Additional confirmatory testing by a molecular method should be considered.Performed By: #### CVDAGA #### [facility] [address] [place] [address] Miguel Ángel ColonBC AUTO DIFFon [id number] #0.1 103/ulNormal0.0-0.1The [facility] HospitalComment on above:Performed By: #### PT, PTT #### [facility] [address] [place] [address] Dr. Sage WilksBasophils/100 WBC (Bld)0.3 %Normal0.2-2.0The [facility] Comment on above:Performed By: #### PT, PTT #### [facility] [address] [place] [address] Dr. Sage Noonan #0.1 103/ulNormal0.0-0.7The [facility] HospitalComment on above: Performed By: #### PT, PTT #### [facility] [address] [place] [address] Dr. Sage Liuosinophils/100 WBC (Bld)0.7 %Critically low0.9-7.0The [facility] HospitalComment on above:Performed By: #### PT, PTT #### [facility] [address] [place] [address] Dr. Sage Liurythrocyte distribution width (RBC) [Ratio]15.5 %Critically high 11.0-15.0The [facility] HospitalComment on above:Performed By: #### PT, PTT #### [facility] [address] [place] [address] Dr. Sage WilksHematocrit (Bld) [Volume fraction]36.2 %Xoiovs27.0-48.0The [facility] HospitalComment on above:Performed By: #### PT, PTT #### [facility] [address] [place] [address] Dr. Sage WilksHemoglobin (Bld) [Mass/Vol]11.9 g/dLCritically low12.0-16.0The [facility] HospitalComment on above:Performed By: #### PT, PTT #### [facility] [address] [place] [address] Dr. Sage Oquendo #0.38 10e3/ulCritically high0.00-0.03The [facility] Comment on above:Performed By: #### PT, PTT #### [facility] [address] [place] [address] Dr. Sage Oquendo %2.2 %Critically high0.0-0.5The [facility] HospitalComment on above:Performed By: #### PT, PTT #### [facility] [address] [place] [address] Dr. Sage Lanier #2.7 103/ulNormal1.2-3.8The [facility] HospitalComment on above:Performed By: #### PT, PTT #### [facility] [address] [place] [address] Dr. Sage Medeiroshocytes/100 WBC (Bld)15.6 %Critically low20.5-60.0The [facility] HospitalComment on above:Performed By: #### PT, PTT #### [facility] [address] [place] [address] Dr. Sage MaurerUAL DIFF REQNONormalThe [facility] HospitalComment on above: Performed By: #### PT, PTT #### [facility] [address] [place] [address] Dr. Sage Dixon (RBC) [Entitic mass]29.1 lsJrybjw66.7-34.0The [facility] HospitalComment on above:Performed By: #### PT, PTT #### [facility] [address] [place] [address] Dr. Sage Interiano (RBC) [Mass/Vol]32.9 g/mLEvlyvu46.9-35.2The [facility] HospitalComment on above:Performed By: #### PT, PTT #### [facility] [address] [place] [address] Dr. Sage Avila (RBC) [Entitic vol]88.5 zPUyewam12.0-99.0The [facility] HospitalComment on above:Performed By: #### PT, PTT #### [facility] [address] [place] [address] Dr. Sage Kee #1.2 103/ulCritically high0.3-0.8The [facility] Comment on above:Performed By: #### PT, PTT #### [facility] [address] [place] [address] Dr. Sage Mcdonaldocytes/100 WBC (Bld)7.1 %Normal1.7-12.0[facility] Comment on above:Performed By: #### PT, PTT #### [facility] [address] [place] [address] Dr. Sage Hill #12.9 103/ulCritically high1.4-6.5The [facility] Comment on above:Performed By: #### PT, PTT #### [facility] [address] [place] [address] Dr. Sage Guzmanutrophils/100 WBC (Bld)74.1 %Exbzsi24.0-75.0The [facility] HospitalComment on above:Performed By: #### PT, PTT #### [facility] [address] [place] [address] Dr. Sage Lawrencelet mean volume (Bld) [Entitic vol]9.6 fLNormal9.5-13.5The [facility] HospitalComment on above:Performed By: #### PT, PTT #### [facility] [address] [place] [address] Dr. Sage WilksPLT178 103/tkEaycyz584-599Aah [facility] HospitalComment on above: Performed By: #### PT, PTT #### [facility] [address] [address] [address] Sage WilksRBC4.09 106/ulCritically low4.20-5.40The [facility] Systemment on above:Performed By: #### PT, PTT #### [facility] [address] [address] [address] Sage WilksWBC17.4 103/ulCritically high4.0-11.0The [facility] HospitalComment on above:Performed By: #### PT, PTT #### [facility] [address] [address] [address] Sage MoyaSO #0.1 103/ulNormal0.0-0.1[facility] on above:Performed By: #### CBC #### [facility] [address] [place] [address] Miguel Ángel KarenBasophils/100 WBC (Bld)0.3 %Normal0.2-2.0The [facility] Comment on above:Performed By: #### CBC #### [facility] [address] [place] [address] Miguel Ángel KarenEO #0.0 103/ulNormal0.0-0.7[facility] on above: Performed By: #### CBC #### [facility] [address] [place] [address] Miguel Ángel KarenEosinophils/100 WBC (Bld)0.0 %Critically low0.9-7.0[facility] on above:Performed By: #### CBC #### [facility] [address] [address] Miguel Ángel KarenErythrocyte distribution width (RBC) [Ratio]15.1 %Critically high 11.0-15.0[facility] on above:Performed By: #### CBC #### [facility] [address] [place] [address] Miguel Ángel KarenHematocrit (Bld) [Volume fraction]36.3 %Xtlpdz78.0-48.0The [facility] on above:Performed By: #### CBC #### [facility] [address] [address] Miguel Ángel KarenHemoglobin (Bld) [Mass/Vol]11.7 g/dLCritically low12.0-16.0The [facility] HospitalComment on above:Performed By: #### CBC #### [facility] [address] [place] [address] Miguel Ángel KarenIG #0.41 10e3/ulCritically high0.00-0.03The [facility] HospitalComment on above:Performed By: #### CBC #### [facility] [address] [place] [address] Miguel Ángel KarenIG %1.7 %Critically high0.0-0.5The [facility] HospitalComment on above:Performed By: #### CBC #### [facility] [address] [place] [address] Miguel Ángel KarenLYMPH #1.5 103/ulNormal1.2-3.8The [facility] HospitalComment on above: Performed By: #### CBC #### [facility] [address] [place] [address] Miguel Ángel KarenLymphocytes/100 WBC (Bld)6.3 %Critically low20.5-60.0The [facility] HospitalComment on above:Performed By: #### CBC #### [facility] [address] [place] [address] Miguel Ángel KarenMANUAL DIFF REQNONormalThe [facility] HospitalComment on above: Performed By: #### CBC #### [facility] [address] [place] [address] Miguel Ángel KarenMCH (RBC) [Entitic mass]28.5 agFqayze69.7-34.0The [facility] Comment on above:Performed By: #### CBC #### [facility] [address] [place] [address] Miguel Ángel KarenMCHC (RBC) [Mass/Vol]32.2 g/fQOkkeiq75.9-35.2The [facility] Comment on above:Performed By: #### CBC #### [facility] [address] [address] Miguel Ángel KarenMCV (RBC) [Entitic vol]88.5 tSNjuvqf98.0-99.0The [facility] Comment on above:Performed By: #### CBC #### [facility] [address] [address] Miguel Ángel KarenMONO #1.7 103/ulCritically high0.3-0.8The [facility] HospitalComment on above:Performed By: #### CBC #### [facility] [address] [place] [address] Miguel Ángel KarenMonocytes/100 WBC (Bld)7.1 %Normal1.7-12.0The [facility] Comment on above:Performed By: #### CBC #### [facility] [address] [place] [address] Miguel Ángel KarenNEUT #19.9 103/ulCritically high1.4-6.5The [facility] HospitalComment on above:Performed By: #### CBC #### [facility] [address] [place] [address] Miguel Ángel KarenNeutrophils/100 WBC (Bld)84.6 %Critically high43.0-75.0The [facility] HospitalComment on above:Performed By: #### CBC #### [facility] [address] [place] [address] Miguel Ángel KarenPlatelet mean volume (Bld) [Entitic vol]9.7 fLNormal9.5-13.5The [facility] HospitalComment on above:Performed By: #### CBC #### [facility] [address] [place] [address] Miguel Ángel MuprxSVM375 103/siEcjzyt704-033Xch [facility] HospitalComment on above: Performed By: #### CBC #### [facility] [address] [place] [address] Miguel Ángel KarenRBC4.10 106/ulCritically low4.20-5.40The [facility] HospitalComment on above:Performed By: #### CBC #### [facility] [address] [address] Miguel Ángel BjdoiSTB67.5 103/ulCritically high4.0-11.0The [facility] HospitalComment on above:Performed By: #### CBC #### [facility] [address] [place] [address] Miguel Ángel SarmientoBASO #0.1 103/ulNormal0.0-0.1The [facility] HospitalComment on above: Performed By: #### PT, PTT #### [facility] [address] [place] [address] Dr. Sage WilksBasophils/100 WBC (Bld)0.4 %Normal0.2-2.0The [facility] Comment on above:Performed By: #### PT, PTT #### [facility] [address] [place] [address] Dr. Sage Noonan #0.1 103/ulNormal0.0-0.7The [facility] HospitalComment on above: Performed By: #### PT, PTT #### [facility] [address] [place] [address] Dr. Sage Liuosinophils/100 WBC (Bld)0.5 %Critically low0.9-7.0The [facility] HospitalComment on above:Performed By: #### PT, PTT #### [facility] [address] [place] [address] Dr. Sage Liurythrocyte distribution width (RBC) [Ratio]15.1 %Critically high 11.0-15.0The [facility]ment on above:Performed By: #### PT, PTT #### [facility] [address] [place] [address] Dr. Sage WilksHematocrit (Bld) [Volume fraction]36.8 %Hvcbdy38.0-48.0The [facility] on above:Performed By: #### PT, PTT #### [facility] [address] [place] [address] Dr. Sage WilksHemoglobin (Bld) [Mass/Vol]12.0 g/fAYhufqk73.0-16.0The [facility] HospitalComment on above:Performed By: #### PT, PTT #### [facility] [address] [place] [address] Dr. Sage Oquendo #0.72 10e3/ulCritically high0.00-0.03The [facility] Comment on above:Performed By: #### PT, PTT #### [facility] [address] [place] [address] Dr. Sage Oquendo %3.9 %Critically high0.0-0.5The [facility] HospitalComment on above:Performed By: #### PT, PTT #### [facility] [address] [place] [address] Dr. Sage Lanier #2.5 103/ulNormal1.2-3.8The [facility] HospitalComment on above:Performed By: #### PT, PTT #### [facility] [address] [place] [address] Dr. Sage Medeiroshocytes/100 WBC (Bld)13.2 %Critically low20.5-60.0The [facility] HospitalComment on above:Performed By: #### PT, PTT #### [facility] [address] [place] [address] Dr. Sage Rodas DIFF REQNONormalThe [facility] HospitalComment on above: Performed By: #### PT, PTT #### [facility] [address] [place] [address] Dr. Sage Dixon (RBC) [Entitic mass]28.6 azDgoqqb05.7-34.0The [facility] HospitalComment on above:Performed By: #### PT, PTT #### [facility] [address] [place] [address] Dr. Sage Tracey (RBC) [Mass/Vol]32.6 g/kMGcirhz15.9-35.2The [facility] HospitalComment on above:Performed By: #### PT, PTT #### [facility] [address] [place] [address] Dr. Sage Avila (RBC) [Entitic vol]87.6 xNDthuol15.0-99.0The [facility] HospitalComment on above:Performed By: #### PT, PTT #### [facility] [address] [place] [address] Dr. Sage Kee #1.3 103/ulCritically high0.3-0.8The [facility] Comment on above:Performed By: #### PT, PTT #### [facility] [address] [place] [address] Dr. Sage Mcdonaldocytes/100 WBC (Bld)6.8 %Normal1.7-12.0[facility] Comment on above:Performed By: #### PT, PTT #### [facility] [address] [place] [address] Dr. Sage Hill #14.1 103/ulCritically high1.4-6.5The [facility] Comment on above:Performed By: #### PT, PTT #### [facility] [address] [place] [address] Dr. Sage Guzmanutrophils/100 WBC (Bld)75.2 %Critically high43.0-75.0The [facility] HospitalComment on above:Performed By: #### PT, PTT #### [facility] [address] [place] [address] Dr. Sage Myles mean volume (Bld) [Entitic vol]9.8 fLNormal9.5-13.5The [facility] HospitalComment on above:Performed By: #### PT, PTT #### [facility] [address] [place] [address] Dr. Sage WilksPLT177 103/qrGgqzkm478-014Jhi [facility] HospitalComment on above: Performed By: #### PT, PTT #### [facility] [address] [place] [address] Dr. Sage WilksRBC4.20 106/ulNormal4.20-5.40The [facility] HospitalComment on above:Performed By: #### PT, PTT #### [facility] [address] [place] [address] Dr. Sage WilksWBC18.7 103/ulCritically high4.0-11.0[facility]Comment on above:Performed By: #### PT, PTT #### [facility] [address] [place] [address] Dr. Sage WilksCULTURE BLOODon 43-45-8749Ytngjypkpqi examination of blood, cultureCulture Observations: NO GROWTH AT 5 DAYS.NormalLake County Memorial Hospital - West HospitalComment on above:Performed By: #### CBC #### [facility] [address] [place] [address] Miguel Ángel KarenCULTURE URINEon 61-81-2200DUVXZTP URINECulture Observations: NO GROWTH.NormalDelaware County HospitalComment on above:Performed By: #### URCX #### [facility] [address] [place] [address] Miguel Ángel KarenDRUG SCREEN RAPID (URINE)on 03-53-1741NJJYypjujgySscgtuEYZCNCYTPkx [facility] HospitalComment on above:Performed By: #### CBC #### [facility] [address] [place] [address] Miguel Ángel KarenBARNegativeNormalNEGATIVEGrand [facility] on above: Performed By: #### CBC #### [facility] [address] [place] [address] Miguel Ángel KarenBUPNegativeNormalNEGATIVEDelaware County HospitalComdetroit receiving hospital on above: Performed By: #### CBC #### [facility] [address] [place] [address] Miguel Ángel KarenBZONegativeNormalNEGATIVEDelaware County HospitalComment on above: Performed By: #### CBC #### [facility] [address] [place] [address] Miguel Ángel KarenCOCNegativeNormalNEGATIVEGrand Lake [facility] on above: Performed By: #### CBC #### [facility] [address] [place] [address] Miguel Ángel KarenCUT-OFFSSEE BELOWNoalThAdams County HospitalComment on above:Result Comment: AMP (Amphetamine): 500ng/mL, BAR (Barbituates): 200 ng/mL, BZO (Benzodiazepines): 150 ng/mL, BUP (Buprenorphine): 10 ng/mL, OLIVIER (Cocaine): 150 ng/mL, mAMP (Methamphetamine): 500 ng/mL, MTD (Methadone): 200 ng/mL, OPI (Opiates): 100 ng/mL, OXY (Oxycodone): 100 ng/mL, PCP (Phencyclidine): 25 ng/mL, PPX (Propoxyphene): 300 ng/mL, THC (Cannabinoids): 50 ng/mL, TCA (Trycyclic Antidepressants): 300 ng/mLPerformed By: #### CBC #### [facility] [address] [place] [address] Miguel Ángel KarenDRUG CUT HEADERDRUG CLASS TEST SYSTEM CUT-OFF CONCENTRATIONS ARE FOLLOWS:NormalThe [facility] HospitalComment on above:Performed By: #### CBC #### [facility] [address] [place] [address] Miguel Ángel KarenmAMPNegativeNormalNEGATIVEDelaware County HospitalComdetroit receiving hospital on above: Performed By: #### CBC #### [facility] [address] [place] [address] Miguel Ángel KarenMTDNegativeNormalNEGATIVEGrand [facility] on above: Performed By: #### CBC #### [facility] [address] [place] [address] Miguel Ángel KarenOPINegativeNormalNEGATIVEDelaware County HospitalComdetroit receiving hospital on above: Performed By: #### CBC #### [facility] [address] [place] [address] Miguel Ángel KarenOXYNegativeNormalNEGATIVEDelaware County HospitalComment on above: Performed By: #### CBC #### [facility] [address] [place] [address] Miguel Ángel KarenPCPNegativeNormalNEGATIVEDelaware County HospitalComment on above: Performed By: #### CBC #### [facility] [address] [place] [address] Miguel Ángel KarenPPXNegativeNormalNEGATIVEDelaware County HospitalComment on above: Performed By: #### CBC #### [facility] [address] [place] [address] Miguel Ángel KarenTCANegativeNormalNEGATIVEDelaware County HospitalComdetroit receiving hospital on above: Performed By: #### CBC #### [facility] [address] [place] [address] Miguel Ángel KarenTHCNegativeNormalNEGATIVEDelaware County HospitalComment on above: Performed By: #### CBC #### [facility] [address] [place] [address] Miguel Ángel KarenLACTATE/LACTIC ACIDon [id number] [Moles/Vol]1.1 mmol/LNormal 0.7-2.0[facility] HospitalComdetroit receiving hospital on above:Performed By: #### LACT #### [facility] [address] [place] [address] Miguel Ángel KarenPOINT OF CARE GLUCOSEon 85-32-2705Eylnjez [Mass/Vol]120 mg/dL Critically xxxq45-797CggDelaware County HospitalComdetroit receiving hospital on above:Performed By: #### POCGLUC #### [facility] [address] [place] [address] Miguel Ángel KarenTYPE AND SCREENon 19-99-4225LFPA AND SCREENNegativeNormalThe [facility] HospitalComdetroit receiving hospital on above:Performed By: #### CBC #### [facility] [address] [place] [address] Miguel Ángel WilsonenUA (CLEAN/CATCH) PRESIDENT CEO & FOUNDER/MICRO IF IND.on 96-21-8236Slfejpurv Ql (U) NegativeNormalNEGATIVEDelaware County HospitalComment on above:Performed By: #### PT, PTT #### [facility] [address] [place] [address] Dr. Sage Leon (U)CLEARNormalCLEARDelaware County HospitalComment on above: Performed By: #### PT, PTT #### [facility] [address] [place] [address] Dr. Sage Castro (U)LT. YELLOWNormalYELLOWDelaware County HospitalComment on above:Performed By: #### PT, PTT #### [facility] [address] [address] [address] Sgae WilksGlucose Ql (U)NegativeNormalNEGATIVEDelaware County HospitalComment on above:Performed By: #### PT, PTT #### [facility] [address] [address] [address] Sage WilksHemoglobin Ql (U)LARGEAbnormalNEGUC Medical Center Comment on above:Performed By: #### PT, PTT #### [facility] [address] [place] [address] Dr. Sage WilksKetones Ql (U)NegativeNormalNEGATIVEDelaware County HospitalComment on above:Performed By: #### PT, PTT #### [facility] [address] [place] [address] Dr. Sage WilksLEUKOCYTESMODERATEAbnormalNEGATIVEDelaware County HospitalComment on above:Performed By: #### PT, PTT #### [facility] [address] [place] [address] Dr. Sage WilksNitrite Ql (U)NegativeNormalNEGATIVEDelaware County HospitalComment on above:Performed By: #### PT, PTT #### [facility] [address] [place] [address] Dr. Sage WilkspH (U)6.0 [pH]Normal5-9The [facility] HospitalComment on above: Performed By: #### PT, PTT #### [facility] [address] [place] [address] Dr. Sage WilksSPEC GRAVITY1.158Bexmqz5.005-<=1.025The [facility] HospitalComment on above:Performed By: #### PT, PTT #### [facility] [address] [address] [address] Sage WilksUA PROTEINNegativeNormalNEGATIVE/ TRACEThe [facility] Comment on above:Performed By: #### PT, PTT #### [facility] [address] [address] [address] Sage Herrera MICRO INDINDICATEDCleveland Clinic Children's Hospital for RehabilitationComment on above: Performed By: #### PT, PTT #### [facility] [address] [place] [address] Dr. Sage Morales Qn (U)0.2 {Jakob'U}/dLNormal0.2 - 1.0The [facility] Systemment on above:Performed By: #### PT, PTT #### [facility] [address] [place] [address] Dr. Sage Green MICROSCOPIC ONLYon [id number]pvSBEO SEEN The [facility] HospitalComdetroit receiving hospital on above:Performed By: #### PT, PTT #### [facility] [address] [place] [address] Dr. Sage Del Castillo identified Cx Nom (U)CX ALREADY ORDEREDCleveland Clinic Children's Hospital for RehabilitationComdetroit receiving hospital on above:Performed By: #### PT, PTT #### [facility] [address] [place] [address] Dr. Sage Klein SEENNormalNONE SEENGrand Lake Joint Township District [facility] Hospital on above:Performed By: #### PT, PTT #### [facility] [address] [place] [address] Dr. Sage De Leon LM Nom (Urine sed)NONE SEENNormalNONE SEENDelaware County HospitalComdetroit receiving hospital on above:Performed By: #### PT, PTT #### [facility] [address] [place] [address] Dr. Cazares ChangEpithelial cells LM Ql (Urine sed)RARENormalNONE SEEN /RAREThe [facility] HospitalComdetroit receiving hospital on above:Performed By: #### PT, PTT #### [facility] [address] [place] [address] Dr. Sage Agee SEENNormalNONE SEENDelaware County HospitalComdetroit receiving hospital on above:Performed By: #### PT, PTT #### [facility] [address] [place] [address] Dr. Sage KahnBmbzsGSU82-89Udekajia5-7Xce [facility] HospitalComment on above: Performed By: #### PT, PTT #### [facility] [address] [address] [address] Sage WilksWBC5-10AbnormalNONE SEENThe [facility] HospitalComment on above: Performed By: #### PT, PTT #### [facility] [address] [address] [address] Sage WilksGROUP B STREP CULTUREon 04-12-2021. agalactiae Ag Ql (Unsp spec) Culture Observations: NEGATIVE FOR GROUP B STREPTOCOCCUS.NormalThe [facility] HospitalComment on above: Performed By: #### CBC #### [facility] [address] [place] [address] Miguel Ángel Hernández PREG PLACENTAon [id number] PREG PLACENTAEXAM: US PREG PLACENTA HISTORY: Low [...] Electronically authenticated by: LENNY GUTIÉRREZ Date: 2021-02-02 15:19NormFlower HospitalUS PREG PLACENTAEXAMINATION: US PREG PLACENTA HISTORY: Low lying placenta COMPARISON: 12/08/2020 FINDINGS: position: Cephalic presentation, longitudinal lie Placenta: Posterior, grade 1. The placental edge is not visualized due to presentation. Heart rate: 141 BPM Cervix: 3.7 cm, closed IMPRESSION: Placental edge is not definitively visualized due to head position Electronically authenticated by: SANDEE LUGO Date: 2021-02-02 07:18NormFlower HospitalGLUCOSE - 1HRon 57-29-3799Cupkhzc [Mass/Vol]106 mg/dLNormal 74-106The [facility] HospitalComment on above:Performed By: #### CBC #### [facility] [address] [place] [address] Miguel Ángel KarenHEMOGRAM AND PLATELon 99-94-5963Haxynfsmiz (Bld) [Volume fraction] 39.4 %Nvetvf39.0-48.0The [facility] HospitalComment on above:Performed By: #### HH #### [facility] [address] [place] [address] Miguel Ángel KarenHemoglobin (Bld) [Mass/Vol]12.7 g/zQLkrntl65.0-16.0The [facility] HospitalComment on above:Performed By: #### HH #### [facility] [address] [place] [address] Miguel Ángel KarenMCH (RBC) [Entitic mass]29.8 csZsafzc51.7-34.0[facility] Comment on above:Performed By: #### HH #### [facility] [address] [place] [address] Miguel Ángel KarenMCHC (RBC) [Mass/Vol]32.2 g/rBXpsqqn63.9-35.2The [facility] Comment on above:Performed By: #### HH #### [facility] [address] [place] [address] Miguel Ángel KarenMCV (RBC) [Entitic vol]92.5 mOEkltjr98.0-99.0[facility] Comment on above:Performed By: #### HH #### [facility] [address] [place] [address] Miguel Ángel UykrtCUY694 103/nlTgwdog889-955Flq [facility] HospitalComment on above: Performed By: #### HH #### [facility] [address] [place] [address] Miguel Ángel KarenRBC4.26 106/ulNormal4.20-5.40The [facility] HospitalComment on above: Performed By: #### HH #### [facility] [address] [place] [address] Miguel Ángel FhyvqDGQ57.4 103/ulCritically high4.0-11.0The [facility] HospitalComment on above:Performed By: #### HH #### [facility] [address] [id number] Miguel Ángel WilsonAlfaLenka [id number]..[facility] [address] NOTEPATIENT NAME: YANETH DENNIS LMR: [id number] OF : 2000ACCT: [id number] OF SERVICE: 09/14/2017DATE OF SURGERY: 03/17/2017 -- T2-J7njwygloxe spinal fusion and selectiveinstrumentation.SUBJECTIVE: Yaneth is now [...] her symptoms from the Neurontin, we cantry Lyrica, but she and her mom were wary [...] in the EOS system.ATTENDING: Monty Reynolds M.D.CC:JOB: [id number]: [id number]: 09/14/2017 14:57:25 / ajDT: 09/15/2017 13:02:49 / dg........NormalSelect Medical [facility] [place] [facility] SsdXR SCOLI SPINE 2-3 VIEWSon [id number] SCOLI SPINE 2-3 VIEWS [facility] [place], [place] [address]VLRDZUC IMAGING DEPARTMENT PATIENTNAME: YANETH DENNIS ORDER: BIRTHDATE: 2000 ACCT: [id number]: , MR: [facility] [facility] [place]------- XR SCOLI SPINE 2-3 VIEWS ORDERING DOCTOR: [...] in a confidential manner consistent with medical recordpolicies.[facility] TRANSon 23-68-3244MSKQM..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 and 100 mgin the afternoon for another [...] in our EOS system.ATTENDING: Monty Reynolds M.D.CC:JOB: [id number]: [id number]: 07/27/2017 14:50:05 / ajDT: 07/28/2017 16:13:54 / hs........[facility] LUMBAR SPINE WO IV CONTRASTon 76-01-5760VS LUMBAR SPINE WO [place], [place] [address]RCUDDMS IMAGING DEPARTMENT PATIENTNAME: YANETH DENNIS ORDER: BIRTHDATE: 2000 ACCT: [id number]: , MR: LOCATION: [facility] [place]------- MR LUMBAR SPINE WO IV CONTRAST ORDERING DOCTOR: NIKOLAI REYNOLDS ORDER #(S): MRI of the lumbar spine: [...] document has been electronically reviewed and approvedby Cosme MACIELThe above information is part of the patient's medical record and shouldbe maintained in a confidential manner consistent with medical recordpolicies.[facility] HospitalTRANSon 31-73-6774BPTJT ..[facility] [address]Qlmdpq ORTHOPAEDIC CLINIC NOTEPATIENT NAME: YANETH DENNIS LMR: [id number] OF : 2000ACCT: [id number] OF SERVICE: 07/11/2017SUBJECTIVE: Yaneth is a 16-year-old [...] weeks to discuss theresults.ATTENDING: Monty Reynolds M.D.CC:JOB: [id number]: [id number]: 07/11/2017 12:20:47 / ajDT: 07/12/2017 12:07:17 / sls........[facility] HospitalXR SCOLI SPINE 2-3 VIEWSon 85-45-5851JM SCOLI SPINE 2-3 VIEWS [place], [place] [address]WHELVBZ IMAGING DEPARTMENT PATIENTNAME: YANETH DENNIS ORDER: BIRTHDATE: 2000 ACCT: [id number]: , MR: LOCATION: [facility] [place]------- XR SCOLI SPINE 2-3 VIEWS ORDERING DOCTOR: [...] in a confidential manner consistent with medical recordpolicies.[facility] HospitalUS-BREAST LT COMPLETEon 88-99-7900LC-BREAST LT COMPLETEThis is a summary report. The [...] - Suspicious Abnormality 2 -95 % Chanceof Ezyukoeybg5B - Low Suspicion (2-10%)4B - Moderate Suspicion (10-50%)4C - High Suspicion (50-95%)Biopsy5 - Highly Suggestive of Malignancy >95% Chance of Malignancy Biopsyl be sent to the soren alvarezElectronically Signed by: Veronica Hope, 06/20/2017 4:57 [facility] HospitalTRANSon 02-15-8798LZJQM..[facility] PediatricOne [place] [phone] [facility]IC CLINIC NOTEPATIENT NAME: YANETH DENNIS LMR: [id number] OF : 2000ACCT: [id number] OF SERVICE: 04/06/2017SUBJECTIVE: Yaneth is a 16-year-old female who underwent T2-L3 [...] activities at that time.ATTENDING: Monty Reynolds M.D.CC:JOB: [id number]: [id number]: 04/06/2017 17:10:01 / ajDT: 04/09/2017 10:29:31 / sls........[facility] [place] [employer] SsdXR SCOLI SPINE 2-3 VIEWSon 33-25-5391EN SCOLI SPINE 2-3 [facility], [place] [address]VYZBGUK IMAGING DEPARTMENT PATIENTNAME: YANETH DENNIS ORDER: BIRTHDATE: 2000 ACCT: [id number]: , MR: LOCATION: 100------- XR SCOLI SPINE [...] in a confidential manner consistent with medical recordpolicies.NormalGuernsey Memorial HospitalHEMOGLOBIN AND HEMATOCRIT on 57-10-6945Ujgvxwtbza (HCT)28.8 %Fve81-59YjtrvtGuernsey Memorial HospitalComment on above:Performed By: #### BMP ####[facility] [address]Sauaxslfqi mass conc (Bld)9.6 g/dLLow 12.0-15.0Guernsey Memorial HospitalComment on above:Performed By: #### BMP ####[facility] [address]XA SCOLI SPINE 2-3 VIEWSon 48-27-4547RO SCOLI SPINE 2-3 [place], [place] [address]VNTRFKA IMAGING DEPARTMENT PATIENTNAME: YANETH DENNIS ORDER: BIRTHDATE: 2000 ACCT: [id number]: MR: LOCATION: [facility] [place]------- XR SCOLI SPINE 2-3 VIEWS ORDERING DOCTOR: LEÓN KRAUES ORDER #(S): Standing PA and lateral thoracolumbar [...] in a confidential manner consistent with medical recordpolicies.[facility] HospitalEKG 12-LEADon 07-12-5419VLW 12-LEAD: Test Reason : CHEST PAIN/METHODON Blood Pressure : / mmHG Vent. Rate : 063 BPM Atrial Rate : 063 BPM P-R Int : 118 ms QRS Dur : 086 ms QT Int : 420 ms P-R-T Axes : 044 050 068 degrees QTc Int: 429 ms Sinus rhythm Normal intervals No hypertrophy Normal tracing Confirmed by Arslan LOWE, Logan Conklin ([id number]) on 03/18/2017 11:39:34 PM Referred By: DUNG QUICK MD Overread By: Logan Mcdaniels MD NormalGuernsey Memorial HospitalHEMOGLOBIN AND HEMATOCRITon 17-00-5370Qrckjnsnun (HCT)30.6 %Kqc74-55RmwnlhGuernsey Memorial HospitalComment on above:Performed By: #### BMP ####[facility] [address]Ldapgoheaj mass conc (Bld)10.2 g/dLLow12.0-15.0Guernsey Memorial HospitalComdetroit receiving hospital on above:Performed By: #### BMP ####[facility] [address]FJ SURG C-ARM > 1 HRon 02-50-8203ES SURG C-ARM > 1 HROHIO [facility] H[facility]PITALONE [place], [place] [address]LBVQUHY IMAGING DEPARTMENT PATIENTNAME: YANETH DENNIS ORDER: BIRTHDATE: 2000 ACCT: [id number]: , MR: LOCATION: [facility] [place]------- [place] SURG C- ARM > 1 HR [...] a confidential manner consistent with medical recordpolicies. [facility], OPSon 88-29-1049UKCY EXCESS?NegativeNormalDParkview Health Bryan HospitalComment on above:Performed By: #### CG8P ####[facility] [address]Emefrtngmpr (HCO3)22 mmol/DIzvque90-58VioipwGuernsey Memorial HospitalComment on above:Performed By: #### CG8P ####[facility] 16664QP749.0 mmol/DWhwvyt64-12UjsqgmGuernsey Memorial HospitalComment on above:Performed By: #### CG8P ####[facility] [address]04[address]LL195.9 msStUoofbz34-95VihyljGuernsey Memorial HospitalComment on above:Performed By: #### CG8P ####[facility] [address] Glucose mass conc99 mg/aVJqfxas42-429WvfcrsGuernsey Memorial HospitalComment on above: Performed By: #### CG8P ####[facility] [address]Npzmhntipk (HCT)31.0 %Jwe92-99Cppvlh Children's HospitalComment on above:Performed By: #### CG8P ####[facility] [address]Mzpaaeqirx mass conc (Bld)10.5 g/dLLow12.5-16.1DParkview Health Bryan HospitalComment on above:Performed By: #### CG8P ####[facility] [address]KCUTCXK CALCIUM1.24 mmol/LNormal1.1-1.35[facility] Health St. Charles Hospitalment on above:Performed By: #### CG8P ####[facility] [address]F7 igyrpaclqc071 %NormalGlenbeigh Hospital on above:Performed By: #### CG8P ####[facility] [address]Hzjctx in arterial yyvqg977 mm[Hg]Fbzn61-56RwmekhGlenbeigh Hospital on above:Performed By: #### CG8P ####[facility] [address]iH of blood7.399 [pH] Normal7.35-7.45[facility] on above:Performed By: #### CG8P ####[facility] [address]Tbanyuvnk molar conc3.6 mmol/LNormal3.5-5.3DPremier Health Atrium Medical Center on above:Performed By: #### CG8P ####[facility] [address]Ongjvw670 mmol/LNormal 138-145[facility] on above:Performed By: #### CG8P ####[facility] [address]JRZS EXCESS?NegativeNormal Guernsey Memorial HospitalComment on above:Performed By: #### CG8P ####[facility] [address] Bicarbonate (HCO3)17 mmol/CXnr10-53FjozkrGuernsey Memorial HospitalComment on above: Performed By: #### CG8P ####[facility] 07448FB190.0 mmol/PYbf59-98BcngxeGuernsey Memorial Hospital Comment on above:Performed By: #### CG8P ####[facility] [address] [address]ZV792.2 mmHgNormal 27-41Guernsey Memorial HospitalComment on above:Performed By: #### CG8P ####[facility] [address] [address]Cmxiqfr mass conc70 mg/fQXmtvsp66-928CefqwkGuernsey Memorial HospitalComment on above:Performed By: #### CG8P ####[facility] [address] [address]Ofknffrswa (HCT)21.0 %Ool47-48LowjlzGuernsey Memorial HospitalComment on above:Performed By: #### CG8P ####[facility] [place] [address] Hemoglobin mass conc (Bld)7.1 g/dLLow12.5-16.1DParkview Health Bryan HospitalComment on above:Performed By: #### CG8P ####[facility] [address] [address]MJKSJGD CALCIUM0.65 mmol/LLow1.1-1.35 Guernsey Memorial HospitalComment on above:Performed By: #### CG8P ####[facility] [address] [address]X7 %NormalGlenbeigh Hospital on above:Performed By: #### CG8P ####[facility] [place] [address]Eatrsg in arterial vntqu239 mm[Hg]Lxap29-05XwcapbMercy Health St. Charles Hospitalment on above:Performed By: #### CG8P ####[facility] 52936qS of blood7.390 [pH] Normal7.35-7.45[facility] on above:Performed By: #### CG8P ####[facility] [address]Fpazoqnow molar conc2.2 mmol/LLow3.5-5.3DPremier Health Atrium Medical Center on above:Performed By: #### CG8P ####[facility] [address] [address]Aappai767 mmol/LHigh 138-145[facility] on above:Performed By: #### CG8P ####[facility] [place] [address]PYXE EXCESS?NegativeNormal [facility] Charles Hospitalment on above:Performed By: #### CG8P ####[facility] [address] Bicarbonate (HCO3)22 mmol/SRthisg42-61QidmdsGlenbeigh Hospital on above:Performed By: #### CG8P ####[facility] [place] [address]JC557.0 mmol/AIbaukr19-93CjnvgzMercy Health St. Charles Hospitalment on above:Performed By: #### CG8P ####[facility] [place] [address]RN2 31.0 rrQgFrjdkb20-56CqeznsGuernsey Memorial HospitalComment on above:Performed By: #### CG8P ####[facility] 12890Rgtdtkj mass conc82 mg/mTCltlkq92-996BfixpfGuernsey Memorial HospitalComment on above:Performed By: #### CG8P ####[facility] [address]Gdnfmxzufm (HCT)35.0 % Tpmqxj72-00SkrqjsGuernsey Memorial HospitalComment on above:Performed By: #### CG8P ####[facility] [place] [address]Rtofxqtihb mass conc (Bld)11.9 g/dLLow12.5-16.1DParkview Health Bryan HospitalComment on above:Performed By: #### CG8P ####[facility] [place] [address]64[address]SAVGDOQ CALCIUM1.17 mmol/LNormal1.1-1.35Guernsey Memorial HospitalComment on above:Performed By: #### CG8P ####[facility] [place] [address] 533[address]L1 gzynlgiuiu149 %NormalGuernsey Memorial HospitalComment on above:Performed By: #### CG8P ####[facility] [place] [address]Ttzkfy in arterial kanqw184 mm[Hg]High 80-95Guernsey Memorial HospitalComment on above:Performed By: #### CG8P ####[facility] 45576jD of blood7.467 [pH]High7.35-7.45Guernsey Memorial HospitalComment on above:Performed By: #### CG8P ####[facility] [address]Boiivqnqp molar conc3.3 mmol/LLow 3.5-5.3DayWVUMedicine Barnesville HospitalComment on above:Performed By: #### CG8P ####[facility] [address]Bqthfg376 mmol/PYslgff376-684ZpjdotGuernsey Memorial HospitalComment on above: Performed By: #### CG8P ####[facility] [address]UCQOQJJTI REPORTon 71-08-6917KYDYTWTTE REPORT [place], [place] [address]ULREYSZYD REPORTPATIENT NAME: YANETH DENNIS LMRN: [id number] OF : 2000ACCT: [id number]: [address] [place] [address] ADATE OF SURGERY:03/17/2017ATTENDING SURGEON:Monty Reynolds M.D.RESIDENT SURGEON:Nini Hensley D.O.MAT MACHINE TENDER:rDea Gallo NP.ANESTHESIA:General endotracheal.PREOPERATIVE DIAGNOSIS:Adolescent idiopathic scoliosis.POSTOPERATIVE DIAGNOSIS:Adolescent idiopathic scoliosis.OPERATION:A T2-L3 posterior spinal fusion and T2-L3 posterior selective spinalinstrumentation.Application of allograft and autograft bone.Spinal neuromonitoring.ESTIMATED BLOOD LOSS:650 mL with 225 mL of Cell Saver returned.COMPLICATIONS:None.INDICATIONS:Patrick is a 16-year-old female who presented to my office earlier jo8110 with a new diagnosis of scoliosis. On [...] in the lumbar region. We used our Take the Interview [employer]s VERSE System. Weplaced 6 x 45 [...] worked itinto the reduction tulip-heads. Using some mechanical handyman tubings, we worked itdown in a drop-in [...] deep layer using 0 Vicryl in a aieehd-ke-qstfl interrupted fashion.We closed the dermal layer using [...] She will obtain a chest x-ray in thePACU. We will begin to mobilize her in the hospital and manage her pain. Whenshluis is more mobile, we will obtain an AP and lateralstanding scoliosis filmbefore she is discharged home. When she sees us back in clinic in approximately3-4 weeks, we will obtain a standing AP and lateral scoliosis x-ray.ATTENDING SURGEON: Monty Reynolds M.D.CC:Monty Reynolds M.D., Attending SurgeonJOB: [id number]: [id number]: 03/17/2017 17:29:47 / a jDT: 03/17/2017 21:30:39 / [facility] PrebleTYPE AND CROSS (CROSSMATCH)on 48-74-2407KUE/RH(D)PositiveLutheran Hospital Comment on above:Performed By: #### XM ####[facility] 85256NLR/RH(D) RECHECK PositiveLutheran HospitalComment on above:Performed By: #### XM ####[facility] [address]121FPEJCKUZ SCREENNegativeNoOhioHealth Mansfield HospitalComment on above: Performed By: #### XM ####[facility] 48395NQKRR COMPONENT TYPEAS1/3 LEUKOREDUCED RBCNormal [facility] Memorial HospitalComment on above:Performed By: #### XM ####[facility] [address] CROSSMATCH EXPIRATION DATE03/20/2017Pomerene Hospitalment on above:Performed By: #### XM ####[facility] [address]JTOSOFDCTY RESULTCOMPATIBLEUC [facility] on above:Performed By: #### XM ####[facility] 22604RHJIOD UNITS OSPAPOV1QgeshxGidlfvOhioHealth Mansfield HospitalComment on above:Performed By: #### XM ####[facility] 070[address]XQYQRWV HISTORY CHECKPATIENT HISTORY CHECKEDUC [facility] on above:Performed By: #### XM ####[facility] 39260ZZTJYCBE CHECKSPECIMEN LABEL CHECKEDPomerene Hospitalment on above:Performed By: #### XM ####[facility] [address]FYQGKB OF [facility],[address] [place], [place] [address]KsfqtcOcxnayPomerene Hospitalment on above:Performed By: #### XM ####[facility] 93277SAZRLIVPXGZ STATUSOK TO TRANSFUSENormal [facility]ern[facility] Memorial HospitalComdetroit receiving hospital on above:Performed By: #### XM ####[facility] [address] UNIT WAIJDRYD9RytxskFhkzibLutheran HospitalComment on above:Performed By: #### XM ####[facility] [address]303LECJ XKZSMDR917541388001UqbagkLlrrxoLutheran Hospital Comment on above:Performed By: #### XM ####[facility] 14916SYCKP TESTon 05-59-1892XQN ( test) Ql (U)NegativeNormalNEGGuernsey Memorial HospitalComment on above:Performed By: #### UCG ####[facility] 25329ZB CHEST 1 VIEWon 02-47-2164SI CHEST 1 VIEWOHIO VALLEY HOSPITALONE [place], [place] [address]EZMWNQW IMAGING DEPARTMENT PATIENTNAME: YANETH DENNIS ORDER: BIRTHDATE: 2000 ACCT: [id number]: , MR: LOCATION: [facility] [place]------- XR CHEST 1 VIEW ORDERING DOCTOR: GERTRUDIS GALLO ORDER #(S): Portable chest, AP supine view: [...] in a confidential manner consistent with medical recordpolicies.NormalGuernsey Memorial HospitalBAIRELAND ARMY [facility] METABOLIC PANELon 54-63-0355KSB (urea nitrogen)22 mg/dL Juwh84-67AgovacGuernsey Memorial HospitalComment on above:Performed By: #### BMP ####[facility] [address]Sowtnhu6.5 mg/dLNormal9.0-11.0Gu[facility]sey Memorial HospitalComment on above:Performed By: #### BMP ####[facility] [address]264Soqchlux702 mmol/DMxys85-373LopjjmGuernsey Memorial HospitalComment on above:Performed By: #### BMP ####[facility] 33073VB176.0 mmol/LCebslc22-94XonvicGuernsey Memorial HospitalComment on above:Performed By: #### BMP ####[facility] [address]2661Kpfgokfvpk7.6 mg/dLNormal0.4-1.1DParkview Health Bryan Hospital Comment on above:Performed By: #### BMP ####[facility] [address]Awenpxp mass conc84 mg/hPIhpimn04-333InjoahGuernsey Memorial HospitalComment on above:Performed By: #### BMP ####[facility] 57526Yilggtcmy molar conc3.8 mmol/LNormal3.5-5.3DParkview Health Bryan HospitalComment on above:Performed By: #### BMP ####[facility] 563[address]Qnfpze356 mmol/LLow 138-145Guernsey Memorial HospitalComment on above:Performed By: #### BMP ####[facility] [address]93EBV AND DIFFERENTIALon 13-93-4854Nbyzdplht/100 WBC Auto (Bld)0.8 %Normal 0-1DPremier Health Atrium Medical Center on above:Performed By: #### CBCP ####[facility] [address] Eosinophils/100 leukocytes2.0 %Normal0-3DChildren's Hospital for Rehabilitationment on above:Performed By: #### CBCP ####[facility] 18506Cgeepslzbjh distribution width Auto Ratio (RBC)13.9 %Fqkwtf67.5-14.5DPremier Health Atrium Medical Center on above: Performed By: #### CBCP ####[facility] 99016Hbzotznacfgo (RBC)4.65 X 10X6/sc4Fobvut5.10-5.30 [facility] on above:Performed By: #### CBCP ####[facility] [address] Hematocrit (HCT)41.7 %Ydhsil00-95RzvgqaMercy Health St. Charles Hospitalment on above: Performed By: #### CBCP ####[facility] [address]YRJR SLIDE RGXELK694AhgceuTxpdpePremier Health Atrium Medical Center on above:Performed By: #### CBCP ####[facility] 84566Wuvbwpwuqw mass conc (Bld)13.9 g/rEEoeege56.0-15.0[facility] on above: Performed By: #### CBCP ####[facility] [address]Jiulzegusej/100 filhenoirs67.3 %Pwaqzt98-[address] Charles Hospitalment on above:Performed By: #### CBCP ####[facility] 48775KZZ 29.9 ffVhijmd40-47XaxlljGuernsey Memorial HospitalComment on above:Performed By: #### CBCP ####[facility] 89441ABZN mass conc (RBC)33.4 g/nKAnplmf98-06FdidbcGuernsey Memorial HospitalComment on above:Performed By: #### CBCP ####[facility] 33436IBB33.6 gESwkhfo52-01 [facility] on above:Performed By: #### CBCP ####[facility] [address]96 Monocytes/100 leukocytes7.6 %High0-5DPremier Health Atrium Medical Center on above: Performed By: #### CBCP ####[facility] [address]329Szjwxcrmefk/100 yhfirocgjy34.3 %Xancrh24-89 [facility] on above:Performed By: #### CBCP ####[facility] [address] ONLINE DIFF TYPEAUTOMATED DIFFERENTIALNoalDPremier Health Atrium Medical Center on above:Performed By: #### CBCP ####[facility] [address]227Moquygfa mean volume (PMV)8.9 fLNormal 6.3-10.5DPremier Health Atrium Medical Center on above:Performed By: #### CBCP ####[facility] 6[address]Boodlaozn734 x 10x3/vw1Jtpkvk573-145BgfcmkGlenbeigh Hospital on above:Performed By: #### CBCP ####[facility] 95679ZED (Leukocytes)7.1 x 10x3/ng5Zwhbag 4.0-10.5DChildren's Hospital for Rehabilitationment on above:Performed By: #### CBCP ####[facility] 63879SK, INR/APTTon 92-49-9489gBZU38.2 aTldfbv78.1-35.7DParkview Health Bryan HospitalComment on above:Performed By: #### PPTT ####[facility] [address]51ZLJ Coag RelTime (Bld) 1.02 {INR}Normal0.90-1.170[facility] on above:Performed By: #### PPTT ####[facility] 30181Hkhjjaqicyl time (PT) Coag time (PPP)12.9 sNormal 11.7-14.4DParkview Health Bryan HospitalComment on above:Performed By: #### PPTT ####[facility] [address]Ofxuuspp sourceVENIPUNCTURENormalDPremier Health Atrium Medical Center on above:Result Comment: [facility],[address] [place], [place] [address]Rujciemtn By: #### PPTT ####[facility] 42647DP SCOLI SPINE 4-5 VIEWSon 55-13-1087QZ SCOLI SPINE 4-5 [place], [place] [address]XLTSCTR IMAGING DEPARTMENT PATIENTNAME: YANETH DENNIS ORDER: BIRTHDATE: 2000 ACCT: [id number]: , MR: LOCATION: 100------- XR SCOLI SPINE [...] in a confidential manner consistent with medical recordpolicies.[facility] Vital Signs Date TimeVital SignValuePerforming YlxwlppzeXwehowyr53-02-2863 13:01-0400Body mass index (BMI) [Ratio]27.52 kg/n2Rkpce Margi DO Work Phone: [facility] HospitalSbebjeuvvh70-96-8603 13:01-0400Body rebjzl03.1 kg Stevenson Margi DO Work Phone: [place] [address]Jymdnxsupg55-84-4837 13:01-0400Diastolic blood mm[Hg]Stevenson Margi DO Work Phone: [place] [address]Qnknctjlag39-95-4396 13:01-0400Systolic blood ufauxnig890 mm[Hg]Stevenson Margi DO Work Phone: [facility] HospitalPlaryagcnb13-37-2692 12:41-0400Body kjuxdd548.7 cmFejose luis Wardgel BILINGUAL SCHOOL PSYCHOLOGIST Work Phone: [facility] HospitalOungtmtrgw68-07-0777 12:41-0400Body mass index (BMI) [Ratio]28.95 kg/v2Jpbyzce Ishanagel BILINGUAL SCHOOL PSYCHOLOGIST Work Phone: [phone] [place], [place] [address]Cvqautahyk96-74-8536 12:41-0400Body .36 kgFelicia Windnagel BILINGUAL SCHOOL PSYCHOLOGIST Work Phone: [place] [phone] 12:41-0400Diastolic blood mm[Hg]Demetrius Ishanagel BILINGUAL SCHOOL PSYCHOLOGIST Work Phone: [facility] HospitalRthykmfynt13-58-3077 12:41-0400Systolic blood kawydvkv813 mm[Hg]Demetrius Windnagel BILINGUAL SCHOOL PSYCHOLOGIST Work Phone: [phone] [place], [place] [address]Qovdoyyfjf89-37-7259 13:17-0400Body xeccrt672.7 cmSumeet De La Cruz MD Work Phone: [facility]05-21-2025 13:17-0400Body mass index (BMI) [Ratio]29.16 kg/n1YiuldfrSumeet De La Cruz MD Work Phone: [facility]05-21-2025 13:17-0400Body rprcep20 kg Sumeet De La Cruz MD Work Phone: [phone]21-2025 13:17-0400Diastolic blood oairovmw94 mm[Hg]Sumeet De La Cruz MD Work Phone: [facility]05-21-2025 13:17-0400Heart rate70 /min Sumeet De La Cruz MD Work Phone: [facility]05-21-2025 13:17-0400Respiratory rate 18 /minDcarson De La Cruz MD Work Phone: [facility]05-21-2025 13:17-3630OgF3% (BldA) [Mass fraction]99 %Sumeet De La Cruz MD Work Phone: [facility]05-21-2025 13:17-0400Systolic blood mm[Hg]Sumeet De La Cruz MD Work Phone: [facility]02-11-2025 13:34-0500Blood Pressure LocationLEIDA NUR 800-3496Ykmjrm-XxbwpRegional [facility] Center 10-29-2024 13:34-0500Diastolic blood vdpblfyf71 mm[Hg]LEIDA NUR 080-0539Ldqtqo-NtyslRegional Medical Center 10-29-2024 13:34-0500Heart rate76 /minLEIDA NUR 742-5832Hhadom-FhwidRegional Medical Center 10-29-2024 13:34-0203WqY9% (BldA) [Mass fraction]97 %LEIDA NUR 186-1726Enhwpr-AmrojRegional Medical Center 10-29-2024 13:34-0500Systolic blood mm[Hg]LEIDA NUR 696-9302Llzmsp-ZgzlbRegional Medical Center 09-24-2024 08:34-0500Blood Pressure LocationKORYCLYN BECK 959-5322Bpzfpk-WadvzRegional Medical Center 09-24-2024 08:34-0500Diastolic blood lmucosha09 mm[Hg]LEIDA NUR 819-8989Wdayhw-AngheRegional Medical Center 09-24-2024 08:34-0500Heart rate85 /minJACLYN CIERSEZWSKI 700-7063Nfzqbl-DdrglRegional Medical Center 09-24-2024 08:34-0012YsG7% (BldA) [Mass fraction]98 %LEIDA NUR 767-1425Dtqfdl-TneihRegional Medical Center 09-24-2024 08:34-0500Systolic blood gddfytsl495 mm[Hg]LEIDA NUR 091-3532Pumebp-VjozjRegional Medical Center 08-29-2024 14:53-0500Diastolic blood kzpmtypj54 mm[Hg]LEDIA NUR 312-8431Lybbjk-GhpeiParkview [facility] 08-29-2024 14:53-0500Heart rate72 /minJACLYN CINANCIEZMADDYKI 748-6908Fnyegj-TbqtbParkview Health [facility] 08-29-2024 14:53-3971LxA9% (BldA) [Mass fraction]98 %LEIDA NUR 294-5538Jnbmxt-WqvexParkview Health [facility] 08-29-2024 14:53-0500Systolic blood wlixsvgs780 mm[Hg]LEIDA NUR 366-6567Ebwwex-TwmyiParkview Health [facility] 03-12-2024 15:57-0400Diastolic blood ugtynyzy79 mm[Hg]Bianka ROBJOI 332-9902Aycryz-UfykqParkview Health [facility] 03-12-2024 15:57-0400Heart rate60 /minHaley ROBUCK 572-9555Qwzcuz-TbuzfParkview Health [facility] Hospital 03-12-2024 15:57-3852MdF6% (BldA) [Mass fraction]98 %Bianka WOODS 722-8901Qugrpe-BabmiParkview Health [facility] Hospital 03-12-2024 15:57-0400Systolic blood tkxpxytl557 mm[Hg]Bianka WOODS 178-2528Hqadxb-KrybpParkview Health [facility] 02-13-2024 15:11-0400Diastolic blood ufcqzesk05 mm[Hg]Ilya Patel [facility]05-28-2024 15:11-0400Heart rate81 /minIlya Patel [facility]05-28-2024 15:11-0400Mean blood mm[Hg]Ilya Patel [address] [place], [place] 2253405-28-2024 15:11-0400 Respiratory rate16 /minIlya Patel [address] [place], [place] 2253405-28-2024 15:11-2866YjN9% (BldA) [Mass fraction]97 %Ilya Patel [facility]05-28-2024 15:11-0400 Systolic blood scydclpx036 mm[Hg]Ilya Patel [facility]05-28-2024 14:07-0400 Diastolic blood ixjtxble83 mm[Hg]Ilya Patel [facility]05-28-2024 14:07-0400Heart rate67 /minIlya Patel [address] [place], [place] 2253405-28-2024 14:07-0400Mean blood saualknz58 mm[Hg]Ilya Patel [facility]05-28-2024 14:07-0400 Respiratory rate13 /minIlya Patel [address] [place], [place] 2253405-28-2024 14:07-7004OnK9% (BldA) [Mass fraction]98 %Ilya Patel [address] [place], [place] 2253405-28-2024 14:07-0400 Systolic blood tfhfqlut426 mm[Hg]Ilya Patel [address] [place], [place] 2253405-28-2024 13:30-0400 Diastolic blood vmenzlam86 mm[Hg]Ilya Patel [address] [place], [place] 2253405-28-2024 13:30-0400Heart rate47 /minIlya Patel [address] [place], [place] 2253405-28-2024 13:30-0400Mean blood mm[Hg]Ilya Patel [address] [place], [place] 2253405-28-2024 13:30-0400 Respiratory rate19 /minIlya Patel [address] [place], [place] 2253405-28-2024 13:30-0713LkW0% (BldA) [Mass fraction]98 %Ilya Patel [address] [place], [place] 2253405-28-2024 13:30-0400 Systolic blood ygaizuzn987 mm[Hg]Ilya Patel [address] [place], [place] 2253405-28-2024 12:48-0400Body gneswxjcnqk89.6 [degF]Ilya Patel [address] [place], [place] 2253405-28-2024 12:48-0400Heart rate59 /minIlya Patel [address] [place], [place] 2253405-28-2024 12:48-0400 Respiratory rate18 /minJodipika Patel [address] [place], [place] 2253405-10-2024 15:31-0400Body yrknxudstax79.88 [degF]Candelario Wilhelm [address] [place], [place] 2253405-10-2024 15:31-0400 Diastolic blood mm[Hg]Candelario Wilhelm [facility]05-10-2024 15:31-0400Heart rate70 /minCandelario Wilhelm [facility]05-10-2024 15:31-0400 Respiratory rate16 /minCandelario Wilhelm [facility]05-10-2024 15:31-5039KkL5% (BldA) [Mass fraction]100 %Candelario Wilhelm [facility]05-10-2024 15:31-0400 Systolic blood xhhuvrei450 mm[Hg]Candelario Wilhelm [facility]04-16-2024 13:16-0400Body aoogqh214.7 cmSumeet De La Cruz MD Work Phone: [facility]04-16-2024 13:16-0400Body mass index (BMI) [Ratio]32.21 kg/v6FpsekthSumeet De La Cruz MD Work Phone: [facility]04-16-2024 13:16-0400Body murdlh55.1 kgSumeet De La Cruz MD Work Phone: [facility]04-16-2024 13:16-0400Diastolic blood ugtckcat97 mm[Hg]Sumeet De La Cruz MD Work Phone: [facility]04-16-2024 13:16-0400Heart rate62 /min Sumeet De La Cruz MD Work Phone: [facility]04-16-2024 13:16-4182CgD7% (BldA) [Mass fraction]99 %Sumeet De La Cruz MD Work Phone: [facility]04-16-2024 13:16-0400Systolic blood rkmipvgv850 mm[Hg]Sumeet De La Cruz MD Work Phone: [facility]02-29-2024 14:39-0500Diastolic blood ayriwkln04 mm[Hg]Bianka ROBUCK 278-3279Yureec-KanyeParkview Health [facility] Hospital 11-16-2023 14:39-0500Heart rate55 /minHaley ROBUCK 349-9548Imiwlk-YmbqlParkview Health [facility] Hospital 11-16-2023 14:39-0500Respiratory rate16 /minHaley ROBUCK 449-3151Gmqkdq-SnwafParkview Health [facility] Hospital 11-16-2023 14:39-4155TcD1% (BldA) [Mass fraction]100 %Bianka ROBUCK 020-6852Tyokwc-OacvxParkview Health Bryan Hospital 11-16-2023 14:39-0500Systolic blood mm[Hg]Bianka ROBUCK 925-1580Ffdkci-EsozrParkview Health [facility] 10-05-2023 14:44-0500Diastolic blood vjfbdudp68 mm[Hg]Bianka ROBUCK 867-5623Rqumtr-TltnrParkview Health [facility] 10-05-2023 14:44-0500Heart rate73 /minHaley ROBUCK 244-9687Byqfgt-StakjParkview Health [facility] Hospital 10-05-2023 14:44-9572WzE2% (BldA) [Mass fraction]98 %Bianka ROBUCK 319-8843Cdrckk-FevtsParkview Health Bryan Hospital 10-05-2023 14:44-0500Systolic blood rkdedfbb121 mm[Hg]Bianka ROBUCK 699-3944Ocbshu-EfmjrParkview Health [facility] Hospital 08-28-2023 11:30-0500Body .7 cmSumeet De La Cruz MD Work Phone: [facility]12-11-2023 11:30-0500Body mrqeif25.53 kgSumeet De La Cruz MD Work Phone: [facility]12-11-2023 11:30-0500Diastolic blood uetodtbm05 mm[Hg]Sumeet De La Cruz MD Work Phone: [facility]12-11-2023 11:30-0500Heart rate63 /min Sumeet De La Cruz MD Work Phone: [facility]12-11-2023 11:30-0500Respiratory rate 18 /Ethan De La Cruz MD Work Phone: [facility]12-11-2023 11:30-9571HzY4% (BldA) [Mass fraction]99 %Sumeet De La Cruz MD Work Phone: [facility]12-11-2023 11:30-0500Systolic blood mm[Hg]Sumeet De La Cruz MD Work Phone: [facility]11-13-2023 13:02-0500Body kdzbdi180.7 cmSumeet De La Cruz MD Work Phone: [facility]11-13-2023 13:02-0500Body temperature 97.81 [degF]Sumeet De La Cruz MD Work Phone: [place] [address]-13-2023 13:02-0500Body cypuqh65.17 kgSumeet De La Cruz MD Work Phone: [facility]11-13-2023 13:02-0500Diastolic blood yhcsvuvt29 mm[Hg]Sumeet De La Cruz MD Work Phone: [place] [address]-13-2023 13:02-0500Heart rate95 /min Sumeet De La Cruz MD Work Phone: [place] [address]-13-2023 13:02-0500Respiratory rate 16 /Ethan De La Cruz MD Work Phone: [place] [address]-13-2023 13:02-1672MkD2% (BldA) [Mass fraction]97 %Sumeet De La Cruz MD Work Phone: [phone] [address]-13-2023 13:02-0500Systolic blood mm[Hg]Sumeet De La Cruz MD Work Phone: [facility]10-30-2023 16:01-0400Diastolic blood dvwnmpoi77 mm[Hg]Ilya Patel [address] [place], [place] 2253410-30-2023 16:01-0400Heart rate98 /minIlya Patel [address] [place], [place] 2253410-30-2023 16:01-0400 Respiratory rate14 /minIlya Patel [address] [place], [place] 9721210-30-2023 16:01-9964RkN2% (BldA) [Mass fraction]99 %Ilya Patel [address]10-30-2023 16:01-0400 Systolic blood xjahynut758 mm[Hg]Ilya Patel [address] [place], [place] 2253410-30-2023 15:05-0400 Diastolic blood tuefagfu19 mm[Hg]Ilya Patel [address]10-30-2023 15:05-0400Heart rate83 /Jason Patel [address] [place], [place] 2253410-30-2023 15:05-0400 Respiratory rate14 /Jason Patel [address] [place], [place] 2253410-30-2023 15:05-6160LfY4% (BldA) [Mass fraction]98 %Ilya Patel [address] [place], [place] 2253410-30-2023 15:05-0400 Systolic blood yjlzrcso85 mm[Hg]Ilya Patel [address] [place], [place] 2253410-30-2023 13:39-0400Body mwctvnboluw42.6 [degF]Ilya Patel [address] [place], [place] 2253410-30-2023 13:39-0400 Diastolic blood btkoqjct57 mm[Hg]I[facility]a Patel [facility]10-30-2023 13:39-0400Heart yisq503 /minIlya Patel [facility]10-30-2023 13:39-0400 Respiratory rate20 /minIlya Patel [facility]10-30-2023 13:39-6135DcH1% (BldA) [Mass fraction]100 %Ilya Patel [facility]10-30-2023 13:39-0400 Systolic blood hygqzwfe320 mm[Hg]Ilya Patel [facility]05-26-2023 11:41-0400Blood Pressure LocationDERIK SIDELL 863-6627Eodrvu-DgvpwRegional Medical Center 02-10-2023 11:41-0400Diastolic blood wblooqqb02 mm[Hg]CHRISTOPHER SIDELL 198-8700Odejun-KvlbcRegional Medical Center 02-10-2023 11:41-0400Heart rate70 /minDERIK SIDELL 969-7052Skwspc-SciglRegional Medical Center 02-10-2023 11:41-8093OyB3% (BldA) [Mass fraction]98 %CHRISTOPHER SIDELL 577-6681Hwtdwo-ZdkyyRegional Medical Center 02-10-2023 11:41-0400Systolic blood mm[Hg]CHRISTOPHER SIDELL 216-5688Wrezyj-FcjreRegional Medical Center 10-06-2022 16:27-0500Blood Pressure LocationGmory FLORA 136-2499Fjdvwj-LmvyxRegional Medical Center 10-06-2022 16:27-0500Body xzqljxlqvib01.98 [degF]Britany FLORA 508-8667Hnpczm-JruuaRegional Medical Center 10-06-2022 16:27-0500Diastolic blood obeixqff36 mm[Hg]Britany HINES 815-0223Ftnpxu-LhmqqRegional Medical Center 10-06-2022 16:27-0500Heart rate94 /minBritany FLORA 750-6424Xnykoi-HstcnRegional Medical Center 10-06-2022 16:27-8880LeK5% (BldA) [Mass fraction]98 %Britany FLORA 021-1442Fopehj-MfepoRegional Medical Center 10-06-2022 16:27-0500Systolic blood vkxrlziu848 mm[Hg]Britany FLORA 047-3455Cdfgiy-Nxcfj[address] 07-06-2022 17:06-0400Body cknrhzbssuw16.34 [degF]Britany FLORA 860-7623Lnfpfv-Yxztt[address] 07-06-2022 17:06-0400Diastolic blood xhvgpecs99 mm[Hg]Britany FLORA 247-9613Oxrhct-MvpztRegional Medical Center 07-06-2022 17:06-0400Heart rate89 /minBritany FLORA 233-5584Wtjlmx-NtmtvRegional Medical Center 07-06-2022 17:06-8090ZxP6% (BldA) [Mass fraction]98 %Britany FLORA 051-4460Ejmxso-LxwknRegional Medical Center 07-06-2022 17:06-0400Systolic blood cbigvero944 mm[Hg]Britany FLORA 169-9913Lyhamc-OgbxkRegional Medical Center 04-21-2022 15:06-0400Blood Pressure LocationBritany FLORA 798-5990Jkrjny-CtzeaRegional Medical Center 08-04-2022 15:06-0400Body .7 [degF]Britany FLORA 557-3081Ulamrt-CdqbcRegional Medical Center 08-04-2022 15:06-0400Diastolic blood mm[Hg] Britany HINES 552-8899Xhjwfg-WqitcRegional Medical Center 08-04-2022 15:06-0400Heart rate79 /minBritany HINES 937-9733Fghblw-ZhdpsRegional Medical Center 08-04-2022 15:06-4178OfA0% (BldA) [Mass fraction]99 % Britany HINES 636-6026Nuzhoe-LjadgRegional Medical Center 08-04-2022 15:06-0400Systolic blood lzivtajd447 mm[Hg] Britany HINES 423-3211Cckhso-MvuffRegional Medical Center 06-15-2022 16:03-0400Blood Pressure LocationAshchelle Morales 187-7478Jobgkf-ZlfhgRegional Medical Center 06-15-2022 16:03-0400Body ofijfvgqlqk42.7 [degF]Loretta Morales 208-4314Nlozfa-ZgkyzRegional Medical Center 06-15-2022 16:03-0400Diastolic blood fewrhwnd86 mm[Hg] Loretta Jemalonk 608-5116Ejmcak-LnzbqRegional Medical Center 06-15-2022 16:03-0400Heart rate85 /minAshley Jemalonk 559-4416Uabmst-NinmtRegional Medical Center 06-15-2022 16:03-7057UrT3% (BldA) [Mass fraction]99 % Loretta Klonk 961-5819Prdhzi-HonkkRegional Medical Center 06-15-2022 16:03-0400Systolic blood tfdedmwe524 mm[Hg] Loretta Morales 794-0951Tvmefm-TemcsRegional Medical Center Encounters Encounter DateEncounter TypeCare ProviderFacilityStart: 07-30-2025 End: 00-90-0381Hcwjbunvg Result EncounterCorey Margi DO Work Phone: NOL[facility] External Department UnsolicitedStart: 07-30-2025 End: 57-31-5918Wntlrmtau Result EncounterCorey Margi DO Work Phone: noms External Department UnsolicitedStart: 07-29-2025 End: 58-46-4086Czjwgu flowsheetCorey Margi DO Work Phone: NOPP Don OBGYNStart: 07-29-2025 End: 52-36-6776Latvcs flowsheetCorey Margi DO Work Phone: NOFU Don OBGYNStart: 07-29-2025 End: 60-57-6512rysyhbhdedGSFOF FAZIONot AvailableStart: 07-06-2025 End: 56-54-1146Ychsnliwh department patient visitMajonas Srivastava Facility:[facility] CAMPUStart: 06-26-2025 End: 00-18-4453busikoiscjASSDSISara NURFacility:[facility] HospitalStart: 06-26-2025 End: 52-19-9299Qldsvfh encounter procedureLEIDA NUR 845-4734Nylxxy-HnltjRegional Medical Center Start: 06-16-2025 End: 91-38-4296ilgehehzluXVJMDWBC EBERLYNot AvailableStart: 06-02-2025 End: 40-73-6011Eemykt flowsheetCorey Margi DO Work Phone: noms Don OBGYNStart: 06-02-2025 End: 91-74-3371Ynspwm flowsheetCorey Margi DO Work Phone: NO Don OBGYNStart: 06-02-2025 End: 03-98-0291Zbofom outpatient visit 15 minutesCorey Margi DO Work Phone: NOMS Don OBGYNComment on above:PCOS (polycystic ovarian syndrome) (Primary Dx); Pelvic congestion syndrome; Follow-up examStart: 06-02-2025 End: 36-48-6067agmjrcurnxQKMQK DAREKONot AvailableStart: 05-28-2025 End: 45-24-8661gmwrfjnbcrPXIIEH R CIERSEZWSKIFacility:[facility] HospitalStart: 05-28-2025 End: 90-67-7262Lxjpjjw encounter procedureLEIDA NUR 379-9481Icrxip-PhpbbRegional Medical Center Start: 05-25-2025 End: 17-00-3786Xajnwjqpq department patient visitCandelario WilhelmFacility:[facility] Start: 05-13-2025 End: 68-27-6435diwzbzkkxfTHMYXL R CIERSEZWSKIFacility:[facility] HospitalStart: 05-13-2025 End: 97-47-7648Xvkoerz encounter procedureLEIDA NUR 598-0182Rgrokc-DpnbzRegional Medical Center Start: 04-29-2025 End: 39-23-9260Iojtybhqi department patient visitCandelario WilhelmFacility:[facility] Start: 04-21-2025 End: 37-92-1886Atlwgg outpatient visit 15 minutesJoshua Garcia NP Work Phone: noMS Don OBGYNComment on above:Dysmenorrhea (Primary Dx); Breast lump in female; Pelvic pain in female; Menorrhagia with irregular cycleStart: 04-21-2025 End: 50-47-9593Flnsdx flowsheetJoshua Garcia [employer] PSYCHOLOGIST Work Phone: noMS Epsom OBGYNStart: 04-21-2025 End: 04-99-1695Vtrxss flowsPhill Garcia B[employer] SCHO[employer] PSYCHOLOGIST Work Phone: noms Don OBGYNStart: 04-21-2025 End: 93-26-7597cqlfwyzwfxXQFZDQ R CIERSEZWSKIFacility:FTMCStart: 04-16-2025 [facility] Hospitalluis OlveraValley County Hospitaltart: 04-08-2025 End: 89-58-7311iectswclnjKSOFSK R CIERSEZWSKIFacility: MilanStart: 04-08-2025 End: 44-75-7932Lppfkme encounter procedureLEIDA NUR 685-8447Tqohah-HnqxpRegional Medical Center Start: 03-06-2025 End: 35-73-2865ivmzhbrjqkRXMNNA R CIERSEZWSKIFacility:[facility] HospitalStart: 03-06-2025 End: 45-44-6153Ptgfmwx encounter procedureLEDIA NUR 784-0572Cddxde-PfbbkRegional Medical Center Start: 02-18-2025 End: 70-04-0580zbdtmdrdmpKKTCMW R CIERSEZWSKIFacility:[facility] HospitalStart: 02-18-2025 End: 76-21-7412Hnsycwi encounter procedureLEIDA NUR 698-4663Zttpba-CkgqqRegional Medical Center Start: 02-12-2025 End: 01-42-4116Vspheq flowsheetFelicia C Rudolph [employer] SCHO[employer] PSYCHOLOGIST Work Phone: noms BM NEUROLOGYStart: 02-12-2025 End: 92-06-5689Uqrfug flowsheetFelicia C Rudolph [employer] SCHO[employer] PSYCHOLOGIST Work Phone: noms BM NEUROLOGYStart: 02-12-2025 End: 04-12-5480Vqeavgvwq encounterSumeet De La Cruz MD Work Phone: NeurologyComment on above:Results; Patient Question Start: 02-12-2025 End: 54-85-3970pfqghwgcnwMVNIOUW Riya GALDAMEZNot AvailableStart: 02-12-2025 End: 08-84-9237Arlhxe outpatient new 45 minutesFelicia Riya Galdamez [employer] PSYCHOLOGIST Work Phone: noms SWS NEURComment on above:Osteoarthritis of lumbar spine, unspecified spinal osteoarthritis complication status (Primary Dx)Start: 34-30-2041tskxxmuiwfAJKCHNS PHILIPPIFacility:[facility] Hospitaltart: 02-09-2025 End: 21-85-7585Ogntlgdhcf hospital visit by physicianCt [facility] ([facility]) Work Phone: [facility] Radiology CT ScanComment on above: Arthrodesis status [Z98.1]Start: 02-05-2025 End: 73-44-0627Btlrytd encounter procedureSumeet De La Cruz MD Work Phone: Spine InstituteComment on above:Arthrodesis status (Primary Dx); Spinal stenosis of cervical regionStart: 02-05-2025 End: 26-84-7365sqnwqcalkgATNHUCE PELLEFacility:[facility] Hospitaltart: 02-04-2025 End: 24-66-3202dntlelzhbdIGLTWQSara NURFacility: [place]Start: 02-04-2025 End: 18-25-4423Ikwpjvr encounter procedureLEIDA NUR 053-8185Casewq-FqidfRegional Medical Center Start: 01-22-2025 End: 64-02-0379xpxbbpxsygGeivcfu Pelle MD Work Phone: Spbps InstituteComment on above:BackStart: 01-16-2025 End: 19-95-0787hriufipjdnHmvfjxs Pelle MD Work Phone: Spqyq InstituteComment on above:BackStart: 01-08-2025 End: 58-83-1580saeielhjcgXNMQAHSara NURFacility:[facility]art: 01-07-2025 End: 39-27-4513owgqcsedjdUwzibkr Pelle MD Work Phone: spine InstituteComment on above:My backStart: 12-23-2024 End: 91-17-7058Rbasefuae encounterSumeet De La Cruz MD Work Phone: NeurologyComment on above:Erroneous encounter-disregardStart: 12-13-2024 End: 03-75-4563Ppk-admission assessmentLEIDA NUR [facility] Start: 12-12-2024 End: 45-93-9867ntizhplrfrSFOHumberto NURFacility:FTMCStart: 12-12-2024 End: 96-40-7282Kln Drop offLEIDA NUR [facility] Start: 12-12-2024 End: 80-34-7478ytjlwjrlxxTRELANDY NURFacility:[facility]art: 12-09-2024 End: 68-68-0548aoviyjujbpYgjvv L ButlerFacility:Behavioral HealthStart: 11-27-2024 End: 11-80-1820gocgltwuwfKPKHumberto NURFacility:[facility] HospitalStart: 11-25-2024 End: 67-23-4846mvwmrbcksnRvdlqzq Pelle MD Work Phone: pou InstituteComment on above:Really bad back pain and it looks like there s a lumpStart: 11-24-2024 End: 19-27-6773Xkrluewdr department patient visitTim ThomasFacility:FTMCStart: 11-19-2024 End: 80-91-5566pahdvynelpIrhes L ButlerFacility:Behavioral HealthStart: 11-19-2024 End: 27-27-8379Jvkjmfz encounter procedureLarey Zhang [facility] start: 10-29-2024 End: 51-79-3205oiuqkfrozxKEALANDY NURFacility:[facility] HospitalStart: 10-29-2024 End: 13-97-6282Urgsquq encounter procedureLEIDA NUR 412-8783Spoupa-UtrlkRegional Medical Center Start: 10-14-2024 End: 42-43-4298ajosizgmspTTRLANDY NURFacility:[facility]tart: 10-14-2024 End: 20-51-9404Pxkxqzg encounter procedureLEIDA NUR [facility] Start: 10-02-2024 End: 88-15-6350yjvkirjgftWwqic L ButlerFacility:Behavioral HealthStart: 10-02-2024 End: 29-51-6580Xllaviw encounter procedureStockton Springs L [facility] start: 09-24-2024 End: 54-60-4559wmtmspyyvhHVZHumberto NURFacility:[facility] HospitalStart: 09-24-2024 End: 17-92-2253Fzkgbhj encounter procedureLEIDA NUR 151-3189Ipvzxa-XbkyrRegional Medical Center Start: 09-03-2024 End: 17-96-4668lezlqsrqhfFrzre L ButlerFacility:Behavioral HealthStart: 09-03-2024 End: 86-19-7809Utlnrlf encounter procedureLaura L [facility] start: 08-30-2024 End: 71-31-0135jwiwbtsfqfOGG-Riya NURFacility:FTALTA BATES CAMPUStart: 08-30-2024 End: 02-09-9706Csaimth encounter procedureLEIDA NUR [facility] Start: 08-29-2024 End: 47-60-9801xsloduhsswZOAYang NURFacility:[facility] HospitalStart: 08-29-2024 End: 43-73-7380Wgiqzgm encounter procedureLEIDA NUR 863-3436Kssjzs-JogzuParkview Health [facility] Start: 08-14-2024 End: 77-92-2886fhvwqixngaFLFHumberto NURFacility:[facility]art: 08-14-2024 End: 60-14-6383Fbxefen encounter procedureLEIDA NUR 745-0995Ysghue-GayqtRegional Medical Center Start: 08-13-2024 End: 38-56-5989bdbtlanglaDqzhm L ButlerFacility:Behavioral HealthStart: 08-13-2024 End: 61-23-4402Ogxhljo encounter procedureJacey Zhang [facility] start: 04-16-2024 End: 38-52-9621nakubkgstxQmscv L ButlerFacility:Behavioral HealthStart: 04-16-2024 End: 15-91-6474Htsypuh encounter procedureLarey Zhang [facility] start: 91-31-9245mndcmyupnoSfpmq L Butler Facility:Behavioral HealthStart: 03-14-2024 End: 95-51-5728mirujbyxkvFvsfe E ROBUCKFacility:FTALTA BATES CAMPUStart: 03-14-2024 End: 93-25-6569Eoyrmad encounter procedureBianka WOODS [facility] Start: 03-12-2024 End: 44-68-4221Tftfgyy encounter Gautam WOODS [phone]-NwbfdParkview Health [facility] Start: 03-12-2024 End: 93-51-1648pmdbylkxbvRIE Haley E ROBUCKFacility:[facility] HospitalStart: 61-31-7342geyrrbknieMwrlq L ButlerFacility:Behavioral HealthStart: 02-13-2024 End: 68-89-8085Ijqfvpbqq department patient visitJo ParenteFacility:[facility]ITALtart: 02-13-2024 End: 52-53-0327Wkzvsrctz department patient visitLifebrite [facility] Start: 02-07-2024 End: 20-30-4907plxilundpmBGC Haley E ROBUCKFacility:[facility] HospitalStart: 02-07-2024 End: 67-97-4253Nvdbpzi encounter Gautam WOODS [phone]-DvyosParkview Health [facility] Start: 58-15-9631qqynukghhfZmkua L Butler Facility:Behavioral HealthStart: 01-26-2024 End: 07-74-6588Ixadidrze department patient visitCandelario Wilhelm [facility] Start: 64-03-7831yuunvpcmbjCCD Haley E ROBUCK Facility[facility] HospitalSt: 01-16-2024 End: 50-64-3248dgadhmgmuiPemel Leatha PonceFacility:Behavioral HealthStart: 01-16-2024 End: 55-49-0830Iplluka encounter procedureLaura L [facility] start: 01-12-2024 End: 29-96-2028Ufxoemhxjh hospital visit by physiciani [facility] (I-Stat/1.5t)RadiologyComment on above:Canceled (CC cx: Financial)Start: 54-37-1948iakdmmppljCnfmeke Pelle MD Work Phone: spine InstituteComment on above:MRIStart: 01-09-2024 Rafita De La Cruz MD Work Phone: spine InstituteComment on above:My MRIStart: 01-04-2024 End: 04-00-0824vputruimaaYobsu L ButlerFacility:Behavioral HealthStart: 01-04-2024 End: 67-87-6750Nqcqqgc [facility] procedureMain [facility] start: 01-02-2024 End: 80-01-5228Pclokjd encounter Joseline De La Cruz MD Work Phone: spine InstituteComment on above: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); Chronic bilateral low back pain without sciaticaStart: 12-14-2023 End: 77-82-5070ddnemmrzvmVhydn L ButlerFacility:Behavioral HealthStart: 12-14-2023 End: 38-90-8999Ikkkvyt encounter procedureMain [facility] Center [facility] start: 87-13-0117nyxhuqajrfRzpigsd Pelle MD Work Phone: spine InstituteComment on above:My backStart: 27-78-3563cxamsnafoqRgxhc ButlerFacility:Behavioral HealthStart: 11-16-2023 End: 63-07-8552wxvlsjqlrjZTE Bianka WOODSFacility:[facility] HospitalStart: 11-16-2023 End: 36-15-4158Qsvytsg encounter Gautam WOODS [phone]-YqtxlK[facility] [place] Start: 10-26-2023 End: 29-79-9927crfpajdtgdAzmf Dirk Morales PT Work Phone: noMS NM PTComment on above:DDD (degenerative disc disease), thoracolumbar (Primary Dx); History of spinal fusionStart: 86-36-9396Smnmu adrianHernan Morales PT Work Phone: noMS NM PTStart: 10-24-2023 End: 14-95-8336qylvasuoljPkulznvp Hahn PTANOMS NM PTComment on above:DDD (degenerative disc disease), thoracolumbar (Primary Dx); History of spinal fusionStart: 10-05-2023 End: 24-83-9759ufdzhhizadLAG Bianka WOODSFacility:[facility] HospitalStart: 10-05-2023 End: 77-32-2441Xktmafp encounter procedureBianka WOODS [phone]-WcbrqParkview Health [facility] Start: 08-28-2023 End: 07-88-2645Fnvdivn encounter procedureSumeet De La Cruz MD Work Phone: Spfkp InstituteComment on above:Fusion of spine of thoracolumbar region (Primary Dx)Start: 08-21-2023 End: 72-03-5890kwoqgjxjpfVbobv M. LueFacility:[facility] Hospitaltart: 08-21-2023 End: 65-89-7214Hxousyw encounter procedureClare Vazquez [facility] Start: 07-31-2023 End: 38-99-3326Woltqjp encounter procedureSumeet De La Cruz MD Work Phone: Spfro InstituteComment on above:S/P spinal fusion (Primary Dx)Start: 07-31-2023 End: 43-64-9896Mgmnsml encounter statusXr Fw8Wvqojytok ClinicStart: 07-31-2023 End: 52-83-1315Wkjjhmsvrn hospital visit by physicianXr Main Xi4LvwnenclcPuxcfkm on above:Cervical spinal stenosis [M48.02]Start: 15-86-3808Rnuebmrim encounter Sumeet De La Cruz MD Work Phone: NeurologyComment on above:QuestionStart: 07-24-2023 ambulatoryLaura ButlerFacility:EU NorkStart: 07-20-2023 End: 17-96-9768nudwqqvjenLnyvt M. LueFacility:EU NorwalkStart: 07-17-2023 End: 98-97-2916Wnqowygqh department patient visitIlya Patel [facility] Start: 36-11-5268Geimsrhyq encounterCamelia Salazar [facility] Spine InstituteComment on above:CARE CONTINUUM ADVISOR ASSESSMENTStart: 69-73-3861Elqeqwwhs encounterSumeet De La Cruz MD Work Phone: Spine InstituteComment on above:Surgery deniedStart: 06-20-2023 End: 64-64-8542dnwpdjfneeUIS Bianka WOODSFacility:[facility] HospitalStart: 29-46-8077Xcjfwtmpwjgjy examination Imelda Dash APRN.CHEF & OWNER Work Phone: [facility] Work Phone: Start: 25-91-6632Uaqenbeuo encounterSvalentina Dash APRN.CNP Work Phone: Pre Admission TestsComment on above:PreOp CallStart: 05-31-2023 End: 57-67-2630evwdgufxobLqwr Jean Marie ESTRELLA Work Phone: Neurology PainComment on above:Spinal stenosis in cervical region (Primary Dx)Start: 05-31-2023 End: 73-07-9039Amgjfhayeugt consultation with Edouard Aj PSYD Work Phone: [facility] MAINStart: 03-76-8639kfkqsxigqw TIAGO WOODSFacility:[facility] HospitalStart: 05-24-2023 End: 49-88-2253Kacfiynmnx hospital visit by physicianCt [facility] Patricia Work Phone: RadiologyComment on above:Arthrodesis status [Z98.1] Spinal stenosis of lumbar region, unspecified whether neurogenic claudication present [M48.061]Start: 84-86-0933Wtoavkkdx encounterSumeet De La Cruz MD Work Phone: spine InstituteComment on above:Appeal sentStart: 47-54-0602olorlgxgpeKdpeslk Pelle MD Work Phone: [facility]INStart: 05-10-2023 Documentation procedureSumeet De La Cruz MD Work Phone: spine InstituteComment on above:My old documentation Start: 95-40-0734Bubgmtptz encounterSumeet De La Cruz MD Work Phone: spine InstituteStart: 34-31-8447Ooaaoafpt to same day surgery centerSumeet De La Cruz MD Work Phone: Spine InstituteComment on above:My surgeryStart: 61-54-9761uifttqdmpkKbsnxcc Pelle MD Work Phone: [facility] MAINStart: 98-28-9853Ytpggkmyo encounterSumeet De La Cruz MD Work Phone: Spoii InstituteComment on above:Patient UpdateStart: 22-88-0003Xpjtxeett to same day surgery Gisele Shah PA-C Work Phone: Spscz InstituteComment on above:S/P spinal fusion (Primary Dx); Anemia following surgeryStart: 10-44-6120rnsvhfbcgsPspbjky Pelle MD Work Phone: Spsav InstituteStart: 38-20-8183Vxvpijn encounter statusSumeet De La Cruz MD Work Phone: [facility] Work Phone: Start: 87-47-3417Rtqmqktzw encounterSumeet De La Cruz MD Work Phone: Spfwk InstituteComment on above:Follow UpStart: 99-22-1262Lwbweidfz encounterSumeet De La Cruz MD Work Phone: [facility] InstituteComment on above:Follow UpStart: 04-24-2023 End: 19-39-6549Kttplorisk hospital visit by physicianXr Main Mp7RkzykayzbQcwghxn on above:Juvenile idiopathic scoliosis, 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 HospitalStart: 57-03-4045jjkulrtlkfTcxujqx S GRANTFacility:University HospitalStart: 53-49-9256Kojgw abstractDimitris (Historical)NeurologyStart: 02-10-2023 End: 46-17-3488Erminrn encounter procedureCHRISTOPHER HUTSON [phone]-CdavtRegional Medical Center Start: 10-10-2022 End: 65-28-6579Cbeafyv encounter procedureGregory S FLORA [facility] Start: 10-06-2022 End: 12-91-3952Ejzytvt encounter procedureGregory S FLORA [phone]-IxacrRegional Medical Center Start: 07-06-2022 End: 23-48-9688Vjozthb encounter procedureGregory S FLORA [phone]-VtefaRegional Medical Center Start: 04-21-2022 End: 75-66-3926Hiqprbn encounter procedureGregory S FLORA [phone]-VmnvqRegional Medical Center Start: 03-03-2022 End: 92-92-8317Rtfiqaf encounter Emory Morales [facility] Start: 03-02-2022 End: 64-65-1926Djrlzib encounter procedureLoretta Morales [phone]-YiehaK[facility]tering [facility] Start: 01-25-2022 End: 93-29-9794rcifuyefyfCX STEVENSON FAZIOFacility:R9Nrbzg: 19-35-0211tqmrvcxrusNO STEVENSON FAZIOFacility:J6Wtgeq: 04-14-2021 End: 09-22-0984Qrypiigmfr and management of inpatientDR STEVENSON FAZIOFacility:H1 Start: 04-12-2021 End: 14-82-2840ahbxqzeemtJQ STEVENSON FAZIOFacility:A4Wjfgx: 02-02-2021 End: 49-17-6892skdsgsnoanWT STEVENSON FAZIOFacility:H3Qkayx: 02-01-2021 End: 72-75-2052eccnwhdwtkZQ STEVENSON FAZIOFacility:N2Iioue: 09-14-2017 End: 52-10-4502RhqjlygctsIOIPParkview Health Montpelier Hospitaltart: 07-27-2017 AmbulatoryParkview Health Montpelier Hospitaltart: 07-25-2017 End: 65-31-1638RhnkjnvbtpPJDKParkview Health Montpelier Hospitaltart: 07-11-2017 End: 46-97-5641FrymclelqfTAYITrinity Health System Twin City Medical Centertart: 06-20-2017 End: 38-10-3015LhmnnuqvsiRAXAJS B [facility] Springfieldtart: 04-06-2017 End: 55-12-8026OqretrloorGOPNParkview Health Montpelier Hospitaltart: 03-28-2017 End: 10-33-0144Jqtxjgwvb department patient visitDUSTIN ElderRachelle [facility] Hospitaltart: 03-17-2017 End: 29-40-4847Xhtxlsamsr and management of inpatientParkview Health Montpelier Hospitaltart: 03-13-2017 End: 45-33-7908HhsrfwuivfPAZCQHCA [facility] Procedures DateProcedureProcedure DetailPerforming ClinicianStart: 96-25-0094UZ CHEST 2V Stevenson Margi DO Work Phone: Start: 30-37-1583HAE 12-LEADCorey Margi DO Work Phone: Start: 04-16-2025 End: 18-56-2116Dyyubkatbnbqk w/patient 60 minutesPayton Villalobos PhD Work Phone: Start: 30-31-9348Ny lumbar spine w/o contrast material Tiny Benson MD Work Phone: start: 12-65-5662Gartt entir thrc lmbr crv sac spi w/skull 2/3 vwCarissa Percyus PA-C Work Phone: Start: 81-44-7265Mv lumbar spine w/o contrast material Kavya Singh CONFIGURATION DEVELOPER.CHEF & OWNER Work Phone: Start: 76-92-8949Dqa spinal canal lumbar w/o contrast materialSserge Singh CONFIGURATION DEVELOPER.CHEF & OWNER Work Phone: start: 69-17-4620Xescd entir thrc lmbr crv sac spi w/skull 2/3 vwCarissa Bonus PA-C Work Phone: Start: 66-80-8822Rjjnuzjk of Products of Conception, External ApproachDR STEVENSON FAZIOStart: 69-40-2198Inboxlzp of Amniotic Fluid, Therapeutic from Products of Conception, Via Natural or Artificial OpeningDR STEVENSON FAZIOTonsillectomyAshchelle Morales tubes in earsConcordchelle Andrew Plan of Treatment DateCare ActivityDetailAuthorStart: 00-32-6039Bdjul microalbumin profile DTaP,Tdap,Td Vaccine (8 - Td or Tdap)[facility]: 08-18-2025 End: 25-40-8998Vnwehpf encounter zqimmppky62/01/2025 11:30 AM EST Office Visit NOMS Don VINCENT [address] [place] [address] Tamra Epstein, PA [address] [place] [address] NOMVioleta Ochoa OBGYNStart: 07-29-2025 End: 14-20-3556Wvjbpac encounter zoabdnspm62/11/2025 2:00 PM EST Consult NOMVioleta Ochoa OBGYN [address] [place] [phone] Stevenson Kiser, DO [address] [place] [address] ArrivedNOMS Ochoa OBGYNComment on above:Arrived Start: 07-07-2025 End: 14-36-2567Venyucs encounter jzwyhnndj38/20/2025 11:20 AM EDT Procedure Visit NOMVioleta VINCENT [address] [place], [id number] Stevenson Kiser, DO [address] [place] [address] NOMVioleta Ochoa OBGYNStart: 06-16-2025 End: 91-34-0921Bevpuucsqnhi / ancillary services rodvhtmrjl33/29/2025 9:30 AM EDT Ancillary Procedure NOMVioleta Ochoa OBGYN [address] [place] [address] [phone] Don OBGYNStart: 06-02-2025 End: 61-01-6501IZQTYWVX Lab Routine PCOS (polycystic ovarian syndrome) Expected: 06/02/2025 (Approximate), Expires: 06/02/2026NOMS HealthcareComment on above: Expected: 06/02/2025 (Approximate), Expires: 06/02/2026Start: 06-02-2025 End: 02-57-4578YK PelvisUS Pelvis w/ TV Imaging Routine PCOS (polycystic ovarian syndrome) Expected: 06/02/2025, Expires: 06/02/2026NOMS HealthcareComment on above:Expected: 06/02/2025, Expires: 06/02/2026Start: 06-02-2025 End: 81-86-8424Unaieko encounter txnvdmagk07/15/2025 1:10 PM EDT Office Visit RYLEY VINCENT [address] [place] [address] Stevenson Kiser DO [address] [place], [place] [address] Darian PACHECOGYNComment on above:ArrivedStart: 90-01-8454NMEVG-19 Vaccine ( season)COVID-19 Vaccine ( season)[facility]S HealthcareStart: 52-38-4421Ifbfytbss vaccinationParkwood Hospitaltart: 04-21-2025 End: 30-86-4587Gwbkayj encounter yfddhfkvt84/04/2025 2:30 PM EDT Office Visit RYLEY VINCENT [address] [place] [address] Joshua Garcia, B[employer] PSYCHOLOGIST [address] [place] [address] Darian VINCENT Comment on above:ArrivedStart: 04-21-2025 End: 74-89-0728JH Breast - bilateral DiagnosticBilateral diagnostic mammogram Imaging Routine Breast lump in female Expected: 04/21/2025 (Approximate), Expires: 06/21/2026[facility] Work Phone: comment on above:Expected: 04/21/2025 (Approximate), Expires: 06/21/2026Start: 04-21-2025 End: 87-20-8071IN PelvisUS Pelvis w/ TV Imaging Routine Dysmenorrhea Pelvic pain in female Menorrhagia with irregular cycleExpected: 04/21/2025, Expires: 10/22/2025[facility] HealthcareComment on above:Expected: 04/21/2025, Expires: 10/22/2025Start: 09-25-2733Yrjen microalbumin profileDTaP,Tdap,Td Vaccine (7 - Td or Tdap)[facility]: 78-75-5286UskkSedg[facility] Work Phone: Start: 02-05-2025 End: 33-87-6860Ppaicze encounter procedureSpine InstituteComment on above: painful lump on backLinked RecordsStart: 09-42-7575Gsqgk-19 Vaccine ()Covid-19 Vaccine ()[facility]: 05-19-2024 Covid-19 Vaccine ()Covid-19 Vaccine () [facility]: 38-12-1615Ghlpfkfgy vaccinationParkwood Hospitaltart: 01-22-2024 End: 13-18-4546Zirnjta encounter rqqhjoeeq94/06/2024 4:00 PM EDT Appointment Radiology [address] [place] [address] MRI THORACIC SPINE WO IVCONRadiologyComment on above:MRI THORACIC SPINE WO IVCONStart: 01-16-2024 End: 44-08-9125Svedmmn encounter procedureRadiologyComment on above:CT LUMBAR SPINE WO IVCONXR SCOLIOSIS PA STAND/LAT 2VStart: 01-12-2024 End: 36-45-6695Jqnivil encounter /26/2024 7:40 PM EDT Appointment Radiology [address] [place] [address] MRI LUMBAR SPINE WO IVCONRadiologyComment on above:MRI LUMBAR SPINE WO IVCONStart: 10-29-2023 End: 60-09-2146GHY W Auto Differential panel - BloodCBC + DIFF Lab Routine S/P spinal fusion Anemia following surgery Expected: 10/29/2023, Expires: 12/29/2023 [facility] Work Phone: Comment on above:Expected: 10/29/2023, Expires: 12/29/2023Start: 10-29-2023 End: 96-60-1816Uyuqrclu [Mass/volume] in Serum or PlasmaFERRITIN BLD Lab Routine S/P spinal fusion Anemia following surgery Expected: 10/29/2023, Expires: 0 12/29/2023[facility] Work Phone: Comment on above:Expected: 10/29/2023, Expires: 12/29/2023Start: 10-29-2023 End: 03-38-0769Smdj and Iron binding capacity panel - Serum or PlasmaIRON + TIBC Lab Routine S/P spinal fusion Anemia following surgery Expected: 10/29/2023, Expires: 12/29/2023[facility] Work Phone: Comment on above:Expected: 10/29/2023, Expires: 12/29/2023Start: 10-29-2023 End: 61-98-0633SNCVIOGQHHIA, HEMOGLOBINRETICULOCYTE, HEMOGLOBIN Lab Routine S/P spinal fusion Anemia following surgery Expected: 10/29/2023, Expires: 12/29/2023 [facility] Work Phone: Comment on above:Expected: 10/29/2023, Expires: 12/29/2023Start: 10-26-2023 End: 36-36-5902weakbgedom70/08/2024 3:30 PM EST Treatment [facility] [place] PT [address] [facility] [address] Hernan Morales, PT [address] [facility] [facility] [place] [address] [facility] PTStart: 11-61-4087Udyibclinton [facility] PTStart: 10-24-2023 End: 09-10-9314zpodctnqnd47/06/2024 3:30 PM EST Treatment [facility] [place] PT [address] [facility] [address] JIMMANHATTAN PSYCHIATR[facility] [place] [address] Haylee Cox PTANOMS NM PTStart: 08-21-2023 End: 68-71-6757Wnnaa entir thrc lmbr crv sac spi w/skull 2/3 vwXR SCOLIOSIS PA STAND/LAT 2V Radiology Routine S/P spinal fusion Expected: 08/21/2023, Expires: 08/29/2024[facility] Work Phone: Comment on above:Expected: 08/21/2023, Expires: 08/29/2024Start: 06-19-2023 End: 67-86-1882Yxzthkyn identified in Urine by CultureURINE CULTURE Microbiology Routine Preop examination Expected: 06/19/2023, Expires: 08/19/2023[facility] Work Phone: Comment on above:Expected: 06/19/2023, Expires: 08/19/2023Start: 06-19-2023 End: 78-38-5358OCI W Auto Differential panel - BloodCBC + DIFF Lab Routine Preop examination Expected: 06/19/2023, Expires: 08/19/2023[facility] Work Phone: Comment on above:Expected: 06/19/2023, Expires: 08/19/2023Start: 06-19-2023 End: 57-48-4970Zecdzrxm [Mass/volume] in Serum or PlasmaFERRITIN BLD Lab Routine Preop examination Expected: 06/19/2023, Expires: 08/19/2023[facility] Work Phone: Comment on above:Expected: 06/19/2023, Expires: 08/19/2023Start: 06-19-2023 End: 25-09-0938Oasr and Iron binding capacity panel - Serum or PlasmaIRON + TIBC Lab Routine Preop examination Expected: 06/19/2023, Expires: 08/19/2023 [facility] Work Phone: Comment on above:Expected: 06/19/2023, Expires: 08/19/2023Start: 06-19-2023 End: 58-78-0162NLEAY COUNTRETIC COUNT Lab Routine Preop examination Expected: 06/19/2023, Expires: 08/19/2023[facility] Work Phone: Comment on above:Expected: 06/19/2023, Expires: 08/19/2023Start: 06-16-2023 End: 00-93-8587JCCKI AUREUS PCRSTAPH AUREUS PCR Lab Routine Cervical spinal stenosis S/P spinal fusion Spinal stenosis of lumbar region with neurogenic claudication Pre-op testing Expected: 06/16/2023, Expires: 10/24/2023[facility] Work Phone: Comment on above:Expected: 06/16/2023, Expires: 10/24/2023Start: 18-00-3927Imutr-19 Vaccine ( season)Covid-19 Vaccine ( season)[facility]: 35-58-9671Jxhrslzqo vaccination [facility]: 15-84-2776YSK TESTINGPAP TESTINGParkwood Hospitaltart: 74-95-8225Pmpafbxjb for malignant neoplasm of cervixParkwood Hospitaltart: 79-26-8109Tonccokzdwce Vaccine: Pediatrics (0 to 5 Years) and At-Risk Patients (6 to 64 Years) (1 of 2 - PCV)Pneumococcal Vaccine: Pediatrics (0 to 5 Years) and At-Risk Patients (6 to 64 Years) (1 of 2 - PCV)[facility] HealthcareStart: 61-09-4862Gsdvf microalbumin profileParkwood Hospitaltart: 66-58-8831QSCUXUSWE SCREENING (18-24)CHLAMYDIA SCREENING (18-24)[facility]: 77-86-6178IS (GONORRHEA) SCREENING (18-24)GC (GONORRHEA) SCREENING (18-24)[facility] Start: 44-00-0201GNQNCLZVU C SCREENINGHEPATITIS C SCREENINGZanesville City Hospital Start: 02-94-1115Fchenknqj C screeningHepatitis C ScreeningZanesville City Hospital Start: 29-38-7346IYO SCREENINGHIV SCREENINGParkwood Hospitaltart: 92-05-4065HEQ screeningHIV ScreeningParkwood Hospitaltart: 71-97-8891Bhcaqqozn for Chlamydia trachomatisChlamydia Screening (18-24)[facility]: 2016 Meningococcal B Vaccine: Consider Based On Risk (1 of 2 - Patient Seeks Protection)Meningococcal B Vaccine: Consider Based On Risk (1 of 2 - Patient Seeks Protection)[facility]: 12-86-2035CYHPZGUFHEGPZ B: Consider based on risk (1 of 2 - Patient Seeks Protection)MENINGOCOCCAL B: Consider based on risk (1 of 2 - Patient Seeks Protection)[facility]: 34-22-0510PPX Vaccine (1 - 3-dose series)HPV Vaccine (1 - 3-dose series)[facility] Start: 37-74-3821EKAS TO ADULT TRANSITION ANNUAL ASSESSMENTPEDS TO ADULT TRANSITION ANNUAL ASSESSMENTParkwood Hospitaltart: 52-95-8448EIQP TO ADULT TRANSITION INITIAL DISCUSSIONPEDS TO ADULT TRANSITION INITIAL DISCUSSION [facility]: 07-22-1817EAA VACCINE (1 - 2-dose series)HPV VACCINE (1 - 2-dose series)[facility]: 80-25-7609XOJXZNWRLKAP (1 - PCV) PNEUMOCOCCAL (1 - PCV)[facility]: 49-02-1042Xhskzhaxaukw vaccination Pneumococcal Vaccine (1 - PCV)[facility]: 37-22-1799YQMPP-19 VACCINE (#1)COVID-19 VACCINE (#1)[facility]: 85-99-8063MDVVSLJTF B (1 of 3 - 3-dose series)HEPATITIS B (1 of 3 - 3-dose series)[facility]: 84-76-3801Tqtfbdgcf B Vaccine (1 of 3 - 3-dose series)Hepatitis B Vaccine (1 of 3 - 3-dose series)[facility] HospitalCBC W Auto Differential panel - BloodCBC and differential Lab Routine PCOS (polycystic ovarian syndrome) Ordered: 06/02/2025 [facility] HealthcareComment on above:Ordered: 06/02/2025 End: 47-42-3718NG Cervical spine WO contrastCT CERVICAL SPINE WO IVCON Radiology Routine Spinal stenosis of cervical region 1 Occurrences starting 02/05/2025 until 03/07/2026[facility] Work Phone: comment on above:1 Occurrences starting 02/05/2025 until 03/07/2026 End: 92-31-3505NO Lumbar spine WO contrastCT LUMBAR SPINE WO IVCON Radiology Routine Chronic bilateral low back pain without sciatica 1 Occurrences starting 01/02/2024 until 5[facility]Comment [facility]:1 Occurrences starting 01/02/2024 until 01/31/2025 End: 14-67-6238NO Thoracic spine WO contrastCT THORACIC SPINE WO IVCON Radiology Routine Chronic bilateral low back pain without sciatica 1 Occurrences starting 01/02/2024 until 01/31/2025leveland ClinicComment on above:1 Occurrences starting 01/02/2024 until 01/31/20255528CHWS-ixcqxbdLYUL-kddjcsy Lab Routine PCOS (polycystic ovarian syndrome) Ordered: 06/02/2025[facility] HealthcareComment on above:Ordered: 06/02/2025Follicle stimulating hormoneFollicle stimulating hormone Lab Routine PCOS (polycystic ovarian syndrome) Ordered: 06/02/2025[facility] HealthcareComment on above:Ordered: 06/02/2025hCG, quantitative, pregnancyhCG, quantitative, Lab Routine PCOS (polycystic ovarian syndrome) Ordered: 06/02/2025[facility] Work Phone: comment on above:Ordered: 06/02/2025[facility] Procedures Routine Cervical spinal stenosis S/P spinal fusion Spinal stenosis of lumbarregion with neurogenic claudication Pre-op testing Ordered: 04/28/2023[facility] Work Phone: Comment on above:Ordered: 04/28/2023Hemoglobin A1c/Hemoglobin.total in BloodHemoglobin A1c Lab Routine Follow-up exam PCOS (polycystic ovarian syndrome) Ordered: 06/02/2025[facility] HealthcareComment on above:Ordered: 06/02/2025Luteinizing hormoneLuteinizing hormone Lab Routine PCOS (polycystic ovarian syndrome) Ordered: 06/02/2025[facility] HealthcareComment on above:Ordered: 06/02/2025 End: 45-26-2483CI Lumbar spine WO contrastMRI LUMBAR SPINE WO IVCON Radiology Routine Adolescent idiopathic scoliosis of thoracolumbar region1 Occurrences starting 01/02/2024 until 5[facility] ClinicComment on above:1 Occurrences starting 01/02/2024 until 01/31/2025 End: 84-83-8067OK Thoracic spine WO contrastMRI THORACIC SPINE WO IVCON Radiology Routine Adolescent idiopathic scoliosis of thoracolumbar region 1 Occurrences starting 01/02/2024 until 5[facility] ClinicComment on above:1 Occurrences starting 01/02/2024 until 01/31/2025 End: 90-04-8877Gxpus entir thrc lmbr crv sac spi w/skull 2/3 vwXR SCOLIOSIS PA STAND/LAT 2V Radiology Routine Juvenile idiopathic scoliosis, unspecified spinal region 1 [facility] 03[facility]16[facility]2023 [facility] Work Phone: Comment on above:1 Occurrences starting 03/16/2023 until 04/14/2024 End: 09-00-2712Wrsni entir thrc lmbr crv sac spi w/skull 2/3 vwXR SCOLIOSIS PA STAND/LAT 2V Radiology Routine Cervical spinal stenosis S/P spinal fusion Spinal stenosis of lumbar region with neurogenic claudication Pre-op testing 1 Occurrences starting 04/28/2023 until 05/26/2024[facility] Work Phone: Comment on above:1 Occurrences starting 04/28/2023 until 05/26/2024 End: 35-39-6806Tbzuf entir thrc lmbr crv sac spi w/skull 2/3 vwXR SCOLIOSIS PA STAND/LAT 2V Radiology Routine Fusion of spine of thoracolumbar region 1 Occurrences starting 08/28/2023 until 5[facility] Work Phone: Comment on above:1 Occurrences starting 08/28/2023 until 09/26/2024REFER FOR ADMIT INTERVIEWREFER FOR ADMIT INTERVIEW Procedures Routine Cervical spinal stenosis S/P spinal fusion Spinal stenosis of lumbar region with neurogenic claudication Pre-op testing Ordered: 04/28/2023[facility] Work Phone: Comment on above:Ordered: 04/28/2023Thyrotropin [Units/volume] in Serum or PlasmaTSH Lab Routine PCOS (polycystic ovarian syndrome) Ordered: 06/02/2025[facility] HealthcareComment on above:Ordered: 06/02/2025 Thyroxine (T4) free [Mass/volume] in Serum or PlasmaT4, free Lab Routine PCOS (polycystic ovarian syndrome) Ordered: 06/02/2025[facility] HealthcareComment on above:Ordered: 06/02/2025 End: 75-87-2315QM Thoracic and lumbar spine Views for scoliosis W standingXR SCOLIOSIS PA STAND/LAT 2V Radiology Routine Adolescent idiopathic scoliosis of thoracolumbar region 1 Occurrences starting 01/02/2024 until 01/31/2025[facility] Work Phone: Comment on above:1 Occurrences starting 01/02/2024 until 01/31/2025XR Thoracic and lumbar spine Views for scoliosis W standingXR SCOLIOSIS PA STAND/LAT 2V Radiology Routine Arthrodesis status 02/09/2025 9:18 AM EDTCFort Hamilton Hospital Work Phone: [facility] Immunizations Immunization DateImmunizationNotesCare RecpdnpyCtfnjeku72-27-0206lecgzue toxoid, reduced diphtheria toxoid, and acellular pertussis vaccine, adsorbed; Translations:[Boostrix (Tdap)]Candelario [facility]08-03-2015tetanus toxoid, reduced diphtheria toxoid, and acellular pertussis vaccine, adsorbedDERIK SIDELL [phone]-PstzfRegional Medical Center 53-96-6012kdruxmeje virus vaccine, unspecified formulationXr Hosp Work Phone: [facility] HospitalSknlrv00-90-3667xxoxcksec virus vaccineDERIK SIDELL [phone]-EaduaRegional Medical Center 39-29-0680jsvqemzub virus vaccine, whole virusSheri Hadry CONFIGURATION DEVELOPER.CHEF & OWNER Work Phone: [facility] HospitalJuivqw23-83-5104xorjznoxk, wholeDERIK SIDELL [phone]-FsctyRegional Medical Center 28-60-8803uqiatkrrn virus vaccine, unspecified formulationSheri Hardy CONFIGURATION DEVELOPER.CHEF & OWNER Work Phone: [facility] HospitalFvhcxw17-55-0482awhtjnpqpz, tetanus toxoids and acellular pertussis vaccine, unspecified formulationSi Hardy CONFIGURATION DEVELOPER.CHEF & OWNER Work Phone: [facility] [id number], unspecified formulationDERIK SIDELL [phone]-DojjbRegional Medical Center [id number], mumps and rubella virus vaccineDERIK SIDELL [phone]-ZbdzvRegional Medical Center [id number] vaccine, unspecified formulationDERIK SIDELL [phone]-SdauxRegional Medical Center [id number], tetanus toxoids and acellular pertussis vaccine, unspecified formulationSheri Huntingburg CONFIGURATION DEVELOPER.CHEF & OWNER Work Phone: [facility] HospitalTlyzna98-74-6695TJoC, unspecified formulationDERIK SIDELL 202-8462Qklayf-UcgilRegional Medical Center 00-28-0124bxtbshbtcx, tetanus toxoids and acellular pertussis vaccine, unspecified formulationSheri Hardy CONFIGURATION DEVELOPER.CHEF & OWNER Work Phone: [facility] HospitalTdxeqj85-94-0256WXxB, unspecified formulationDERIK SIDELL 464-4054Svgzvj-QfctiRegional Medical Center 06-77-8160hkmpfwykh B vaccine, pediatric or pediatric/adolescent dosageDERIK SIDELL 428-5393Qgijhf-UdilhRegional Medical Center 50-37-2933Rrp, unspecified formulationDERIK SIDELL [phone]-ZxshaRegional Medical Center 80-99-9405lelnhox, mumps and rubella virus vaccineDERIK SIDELL 513-9940Exxott-WndlhRegional Medical Center 49-26-6432esduehquqh vaccine, unspecified formulationDERIK SIDELL 103-7566Kdsxwl-JpzktRegional Medical Center 47-25-5682fvuffdras virus vaccineDERIK SIDELL [phone]-YlwarRegional Medical Center 50-65-9488wgeyyttkoy, tetanus toxoids and acellular pertussis vaccine, unspecified formulationSheri Huntingburg CONFIGURATION DEVELOPER.CHEF & OWNER Work Phone: [facility] HospitalMutmsh76-03-8351YHmZ, unspecified formulationDERIK SIDELL 464-4439Qiqtlc-BsvsvRegional Medical Center 95-86-4335Ihf, unspecified formulationDERIK SIDELL 818-5867Eigblo-OizknRegional Medical Center 81-22-8708hzzypisrqa vaccine, unspecified formulationDERIK SIDELL 055-8980Dgcrss-EksszRegional Medical Center 80-44-6001kzectozorv, tetanus toxoids and acellular pertussis vaccine, unspecified formulationSheri Hardy CONFIGURATION DEVELOPER.CHEF & OWNER Work Phone: [facility] HospitalVihpep38-46-0504IBrW, unspecified formulationDERIK SIDELL 702-5494Akbeme-LvapvRegional Medical Center 22-51-5453kbxhibjnf B vaccine, pediatric or pediatric/adolescent dosageDERIK SIDELL 533-7256Tsxbux-GptmmRegional Medical Center 37-06-9663Jxc, unspecified formulationDERIK SIDELL 587-3051Jlghru-GatkzRegional Medical Center 08-45-3789ktgjmqdflr vaccine, unspecified formulationDERIK SIDELL 676-6200Pbbtun-MlgqsRegional Medical Center 23-59-9592bbhlbiwzm B vaccine, pediatric or pediatric/adolescent dosageDERIK SIDELL 432-5864Lprebp-FtdreRegional Medical Center NEGATED: Highlighted row has not occurred!48-69-1693sbhjejsyg virus vaccine, unspecified formulationJALEANDER NUR 543-9380Nbvavm-MddnqRegional Medical Center NEGATED: Highlighted row has not occurred!16-88-4922fudxkcope virus vaccine, unspecified formulationIlya Patel 146-9156Yhekol-BdrgiParkview Health Bryan Hospital NEGATED: Highlighted row has not occurred!70-40-8904tpkakxdbj virus vaccine, unspecified formulationLoretta Morales [phone]-VnxdbK[facility] Payers DatePayer CategoryPayerPolicy [id number] [id number] [id number] Health Insurance [employer] Member Subscriber Plan / Payer (Effective 2020- Present) Name: Yaneth Dennis Leatha Relation to Subscriber: Self Name: Chavez Dennisroberto Zhang Payer ID: Not on file Group ID: [id number] Type: Not on file Address: [address] [id number] [id number] 2..1.858640.3.579.2. [id number] 2..1.388380.3.579.2.50797-75-6725Ykdospg6162031 2..1.092436.3.579.2.35838-75-9660Rldwihi3232331 2..1.361158.3.579.2.56561-39-2112Pcwhyum9278756 2.1.430207.3.579.2.95608-91-6013Pgwffof2115239 2..1.053264.3.579.2.45685-51-8346Cooetdg90449440 2.1.923914.3.579.2.86433-51-2706Ymfwqad70138826 2.16.840.1.623117.3.579.2.53412-12-9042Fctppzj30381818 2.16.840.1.768024.3.579.2.78427-23-3748Mwshwig27774803 2.16.840.1.878267.3.579.2.17812-68-0209Yhhftgw74280815 2.840.1.681142.3.579.2.19243-52-9530Pwoasae36198885 2.840.1.006409.3.579.2.56392-48-0543Kqkkywh66418848 2.840.1.869592.3.579.2.29579-86-9704Tldqall39889846 2.840.1.906445.3.579.2.79004-21-5063Vbifwci08811204 2.840.1.139529.3.579.2.37879-31-1774Qyvzzll71949971 2.840.1.029261.3.579.2.27279-85-1760Xktdvls59516982 2.840.1.814754.3.579.2.52455-81-0759Oskcnzr35307448 2.840.1.084208.3.579.2.90302-53-6673Muyqfvv02655784 2.840.1.766748.3.579.2.08718-57-4317Xmqzcxu35824590 2.840.1.343681.3.579.2.08869-56-2907Qpybatk69260162 2.840.1.121723.3.579.2.16960-91-4699Uslafix75846344 2.840.1.514729.3.579.2.76045-41-4430Qepxggt77085828 2.16.840.1.120344.3.579.2.52685-22-9698Tphxyqh90259699 2.16.840.1.961368.3.579.2.32231-26-3415Wmjzoec80155299 2.16.840.1.935821.3.579.2.56409-22-8051Dpjyumm39754951 2.16.840.1.396854.3.579.2.94338-70-2498Gaxxzhr77824861 2.840.1.353230.3.579.2.93129-46-1523Doskrrr89015904 2.16840.1.158781.3.579.2.35963-43-1128Mxkpdvr71186876 2.840.1.138302.3.579.2.69679-35-4720Vyeecgi27871626 2.840.1.025429.3.579.2.54723-94-6968Aozwgci67571179 2.16.840.1.235471.3.579.2.53080-84-6493Kaqdiaj15839283 2.16840.1.589867.3.579.2.59884-49-5466Vcfever88077457 2.16840.1.137285.3.579.2.07020-34-7263Tdfacpf88002945 2.16840.1.596777.3.579.2.16657-98-3639Jsfpwhs01875849 2.16.840.1.807201.3.579.2.12919-94-8570Fqdycxo76838158 2.16840.1.531857.3.579.2.60765-41-6863Intgods65667327 2.16840.1.908483.3.579.2.09372-06-9852Cztasfk15238873 2.840.1.815459.3.579.2.38333-96-1887Xtdessc14878817 2.840.1.146002.3.579.2.93232-76-2019Vtwxgtv56147026 2.840.1.120177.3.579.2.30875-06-2575Ibpetyp64071983 2.840.1.481126.3.579.2.13717-32-1619Pycrzww57336206 2.840.1.099798.3.579.2.10782-14-5927Lbrvmxn97952521 2.840.1.644308.3.579.2.97624-89-6589Rgbwikj67653780 2.840.1.518952.3.579.2.19832-77-0369Jxvhcdn46501406 2.840.1.005185.3.579.2.79750-83-0545Qesnzym75057224 2.840.1.443113.3.579.2.12280-66-5179Oaqjnxw4233068 2.840.1.169337.3.579.2.39591-16-2133Ibalwgj90744953 2.840.1.377103.3.579.2.31579-49-7633Gcvszid11143476 2.840.1.831527.3.579.2.84869-73-3407Gorjllw28189084 2.840.1.182876.3.579.2.78282-34-8099Agfhict68232317 2.840.1.204689.3.579.2.80871-24-0924Ijljjtz35365370 2.16.840.1.994824.3.579.2.20734-22-6400Oisdoln37914804 2.16.840.1.610424.3.579.2.54582-88-0079Ljrpmkm83449995 2.16840.1.809180.3.579.2.15872-13-4192Vseqryx53773315 2.16.840.1.313227.3.579.2.70039-13-5995Uuvefjp65926203 2.16840.1.492773.3.579.2.90817-24-5302Zunwayw86956708 2.840.1.871493.3.579.2.28703-43-0292Pclilwd02136970 2.840.1.516015.3.579.2.47130-38-1744Qjvpwxz53271086 2.840.1.704175.3.579.2.42752-91-2849Pvkdxjm84140411 2.16840.1.517796.3.579.2.66065-30-3527Kaozgph16501874 2.16840.1.043311.3.579.2.68491-39-6636Bdehurj12428042 2.16840.1.635899.3.579.2.216116-74-0958Rdkykuy13997526 2.16840.1.863768.3.579.2.636896-74-7035Htqbkpo27253668 2.16840.1.377598.3.579.2.479870-41-3524Tzbxvjf06513996 2.16840.1.750329.3.579.2.286830-66-1335Dclggss8825130 2.16.840.1.530652.3.579.2.238225-95-5134Xirwgkf73659657288ZslkanoVHKPZ8884341 Social History DateTypeDetailFacilityStart: 03-02-2022 End: 07-55-3262Kggukwv smoking statusNever smoked tobacco (finding)[facility] Comment on above:occasionalStart: 96-33-4266Nycfyfs smoking statusNeverRegional Medical Center Comment on above:occasionalStart: 04-24-2023 End: 55-53-1872Btd Assigned At BirthFemalAultman Hospital Start: 50-05-3938Wrizhfv smoking status NHISTobacco smoking consumption unknownParkwood Hospitaltart: 14-72-7642Vpx Assigned At BirthNot on fileParkwood Hospitaltart: 61-59-2314Utezuqx smoking status NHIS Occasional tobacco smokerZanesville City Hospital Work Phone: End: 12-25-1334Zytrdkt of tobacco useCigarette SmokerZanesville City Hospital Work Phone: History of tobacco usePassive smokerZanesville City Hospital Work Phone: Start: 04-24-2023 End: 11-53-9650Wsfbmgx intakeEx-drinker (finding)[facility] Hospitaltart: 04-24-2023 End: 57-26-9966Vrfjryu of Social functionParkwood Hospitaltart: 04-24-2023 Tobacco CommentUses medical marijuana prn painParkwood Hospitaltart: 06-16-2023 End: 14-82-7230Wgvsmep smoking status NHISEx-smokerZanesville City Hospital End: 01-34-8335Uonhqfn of tobacco useCurrent smokerParkwood Hospitaltart: 06-16-2023 End: 80-21-4183Gbrzved use and exposureSmokeless tobacco non-userZanesville City Hospital(I/We) worried whether (my/our) food would run out before (I/we) got money to buy more.Never [facility] Work Phone: In the past 12 months, was there a time when you were not able to pay the mortgage or rent on time?NoCProtestant Deaconess Hospital Work Phone: Sexual OrientationFlower Hospital Start: 10-60-9491MsfZyduef (finding)[facility] Healthcaretart: 02-12-2025 End: 43-96-4009Rlwyvallv beverage intakeLifetime non-drinker (finding)[facility] HealthcareStart: 73-99-0812Xizxvxn intakeAlcohol Use [facility]ex Assigned At BirthFeBatavia [facility] Sexual OrientationStraight or heterosexualSedgwick County Memorial Hospital Work Phone: Medical Equipment Procedure CodeEquipment CodeEquipment Original TextEquipment IdentifierDates Graft Bone 30cc 1mm-4mm Range Granules Cancellous Crushed - [id number]: 74-62-6130Dpeuu Liz 3 Titanium Set Scooby Spine - [id number]: 36-28-3705Cdo Liz 3 6mm 480mm Spinal - [id number] Start: 86-57-7938Yeffv Liz 3 Walden 6.5mm 55mm Bone Polyaxial Nonsterile Spine - [id number]: 60-04-6994Ngvmx Infuse 18mm Large Ii Bovine Collagen Rhbmp-2 26mm Bone Absorbable - [id number]_lnkRxuuk: 07-11-2023 Screw Liz 3 Walden 6.5mm 50mm Bone Polyaxial Nonsterile Spine - [id number]: 51-63-7126Twlyd Liz 3 Walden 4.5mm 40mm Bone Polyaxial Nonsterile Spine - [id number]: 06-72-0893Pwtyd Liz 3 5mm Titanium 35mm Bone Polyaxial Spine Thoracolumbar - [id number]: 68-76-4196Okxcs Liz 3 5mm Titanium 40mm Bone Polyaxial Spine Thoracolumbar - [id number]: 07-58-7670Dqmaw Liz 3 6mm Titanium 45mm Bone Polyaxial Spine Thoracolumbar - [id number]: 06-20-9827Khouk Liz 3 Walden 6mm 40mm Bone Polyaxial Nonsterile Spine - [id number]: 10-24-6380Yanxx Liz 3 Walden 6mm 45mm Bone Polyaxial Nonsterile Spine - [id number]_nirAhlug: 72-88-2595Kglbo Liz 3 Walden 6.5mm 45mm Bone Polyaxial Nonsterile Spine - [id number]_hmxWignl: 07-11-2023 Functional Status IpxlXxgzhmwlafPuaercJaiwdekd10-76-6664Qbrhufnqcl StatusN/[facility]rietRobert [facility]01-07-2025Functional StatusN/TINYDelaware County Hospital12-12-2024Functional StatusSymptomatic After Exposure to Contagion NoFisherSaint Francis Hospital [facility] 60-06-9774Hdmpkyizre StatusN/[facility]05-10-2024Functional StatusN/[facility]10-30-2023Functional StatusN/TINYBluffton Hospital2023Are you deaf, or do you have serious difficulty hearingNo 07/15/2023 11:11 AM Samara Alvarez RN [facility] 03-54-6418Bwp you blind, or do you have serious difficulty seeing, even when wearing glassesNo 07/15/2023 11:11 AM Samara Alvarez RN NoCProtestant Deaconess HospitalUdiyqr89-99-6842Sr you have serious difficulty walking or climbing stairsNo 07/15/2023 11:11 AM Samara Alvarez RN NoCProtestant Deaconess HospitalWnmthh14-37-8366Tu you have difficulty dressing or bathingNo 07/15/2023 11:11 AM Samara Alvarez RN [facility] HospitalClnvrv99-28-1894Tmkzcsz of a physical, mental, or emotional condition, do you have difficulty doing errands alone such as visiting a physician's office or shoppingNo 07/15/2023 11:11 AM Samara Alvarez RN [facility] HospitalZeyjot21-25-0010Snyardlxie StatusN/[facility]01-19-2023Functional StatusN/[facility]10-19-2022Functional StatusN/[facility]08-04-2022Functional StatusN/[facility] [id number] StatusN/[facility] Mental Status DcvqMnutuqhpptQeblqrOqpgkwwr99-03-8081Nqotxue of a physical, mental, or emotional condition, do you have serious difficulty concentrating, remembering, or making decisionsNo 07/15/2023 11:11 AM Samara Alvarez RN [facility] Clinical Notes 03-02-2022 to 07-06-2025 Note Date & VsesXgzkMblmbuwa29-30-7080 NoteED Patient Education Note Dermatology Sutures, Leora, [...] skin reaction that can lead to infection. Leora To close a wound with leora, the edges of your skin on both sides of the wound will be brought close together. A staple will then be placed across the wound, and an instrument will secure the staple edges together. Birchleaf are often used to close surgical incisions. They are faster to use than sutures, and they cause less skin reaction. Birchleaf need to be removed using a tool that bends the leora away from your skin. Follow these instructions at home: Medicines ??? 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 ??? Do not try to remove your [...] blood coming from y (more content not included)...[facility]10-09-2025 Evaluation + Plan note Future Scheduled Tests Radiology* CT Spine Cervical w/o Contrast 06/26/25 * CT Spine Thoracic w/o Contrast 06/26/25 * MRI Spine Cervical w/o Contrast 11/27/24 * MRI Spine Lumbar w/o Contrast 11/27/24 * MRI Spine Thoracic w/o Contrast 11/27/24 [facility] 09-15-2025 History of Present illness Narrative* Joshua Garcia NP - 06/02/2025 1:10 PM EDT Reason for [...] nursing note reviewed. Exam conducted with a control panel builder present. Vitals: Estimated body mass index is 27.52 kg/m as calculated from the following: Height as of 02/12/25: 5' 8 . Weight as of this encounter: 181 lb. BP: 110/68 No LMP recorded. ASSESSMENT & PLAN ICD-10-CM 1. Pelvic congestion syndrome N94.89 2. Follow-up exam Z09 Patient was seen at [facility] and diagnosed pelvic congestion syndrome. She continues with pelvic pain. Plan is to continue control. Plan will be to obtain ultrasound of the pelvis. Will move forward with diagnostic lap and salpingectomy. Documented by Joshua Garcia NP on behalf of: Stevenson Kiser DO documented in this encounterScotland County Memorial HospitalNqjtrbzxai75-74-6385 NoteED Patient Education Note Dermatology Wound Care, [...] and water are not available, use hand shotgun shell loading machine operator. ??? Change your dressing as told by [...] by your health care provider. ??? Take xwdy-wyp-mcufumd and prescription medicines only as told by [...] away. Call your lo (more content not included)...[facility]08-12-2025 NoteED Patient Education Note Obstetrics and Gynecology [...] Follow these instructions at home: ??? Take scek-oge-ggygxwl and prescription medicines only as told by [...] provider. Document Revised: 01/11/2022 Document Reviewed: 01/11/2022 [employer] Patient Education ? 2023 Workbooks. Preventive Health How to Use Compression Stockings [...] your health care provider and follow the blind lacer's instructions that come with the stockings. ??? [...] on for as long (more content not included)...[facility]08-04-2025 History of Present illness Narrative* Joshua Garcia [...] nursing note reviewed. Exam conducted with a control panel builder present. Vitals: Estimated body mass index is [...] of: Joshua Garcia NP documented in this encounterScotland County Memorial HospitalZyahgafpna78-75-1325 Evaluation note* Type Assessment Date assessment Post-traumatic stress disorder J impression feeling frequent ner vousness, experiencing flashbacks, [...] assessment Body mass index [BMI] 29.0-29.9, adult [facility] Work Phone: [phone] Telephone encounter Note* Telephone Encounter - Rashad [...] but recommend herPCP complete the medical questionnaire. [facility]05-29-2025 Miscellaneous Notes* Telephone Encounter - Rashad [...] if we received the paperwork from her Therapeutic Activities Services Worker. Pt stated it has been sent twice. I do see some from December, not sure if it what needs to be filled out. Pt would like a call back Is there any additional information the provider should know? No Last Office Visit: 02/05/2025 Next scheduled appointment: Visit date not found Best number to reach caller: [phone] Best time to reach caller: any Is it OK to leave a detailed voice message? Yes Drea Copeland documented in this encounterZanesville City Hospital05-28-2025 Telephone encounter Note * Telephone Encounter [...] if we received the paperwork from her Therapeutic Activities Services Worker. Pt stated it has been sent twice. I do see some from December, not sure if it what needs to be filled out. Pt would like a call back Is there any additional information the provider should know? No Last Office Visit: 02/05/2025 Next scheduled appointment: Visit date not found Best number to reach caller: [phone] Best time to reach caller: any Is it OK to leave a detailed voice message? Yes Drea Copeland [facility]05-25-2025 History of Present illness Narrative* Lalitha Arteaga RT(R) - 02/09/2025 9:30 AM EDT Radiology [...] PATIENT PRESENTS WITH AN IMPLANTABLE OR ATTACHED HUMAN RESOURCES DESIGNATE: No RADIOLOGY DEPARTMENT: General X-ray: Exam(s) Completed: Spine X-Ray(s): Scoliosis Series PERIPHERAL IV DATA: Not applicable SIGNED BY: ANMOL Grier) February 09, 2025 9:13 AM documented in this encounterZanesville City Hospital05-25-2025 NoteHNO ID: [id number] Author: LALITHA ARTEAGA RT(R) Service: Radiology Author [...] PATIENT PRESENTS WITH AN IMPLANTABLE OR ATTACHED HUMAN RESOURCES DESIGNATE: No RADIOLOGY DEPARTMENT: General X-ray: Exam(s) Completed: Spine X-Ray(s): Scoliosis Series PERIPHERAL IV DATA: Not applicable SIGNED BY: RT Cherrie(Dom) February 09, 2025 9:13 AMSalt Lake Regional Medical CenterLgmpiuls84-65-8288 History of Present illness Narrative * Shalom Murphy RT(Dom) - 02/09/2025 9:00 AM EDT Radiology Service [...] PATIENT PRESENTS WITH AN IMPLANTABLE OR ATTACHED HUMAN RESOURCES DESIGNATE: No RADIOLOGY DEPARTMENT: CT; Exam(s) Completed: Spine PERIPHERAL IV DATA: Not applicable SIGNED BY: RT Isabella(Dom) February 09, 2025 8:53 AM documented in this encounterZanesville City Hospital05-25-2025 NoteHNO ID: [id number] Author: SHALOM MURPHY RT(R) Service: ? Author [...] PATIENT PRESENTS WITH AN IMPLANTABLE OR ATTACHED HUMAN RESOURCES DESIGNATE: No RADIOLOGY DEPARTMENT: CT; Exam(s) Completed: Spine PERIPHERAL IV DATA: Not applicable SIGNED BY: RT Isabella(R) February 09, 2025 8:53 [facility] LimaZmbcbucl38-63-9059 NoteHNO ID: [id number] Author: SUMEET DE LA CRUZ MD Service: [...] the area around your hips) at the [facility] facility; the imaging order has been sent. - We will review your x-rays and CT images and call you with results. If all screws and fusion sites look stable, you can begin physical therapy and start muscle relaxant medication as discussed. - Ask your insurance sales manager to fax the requested paperwork again to [...] as needed for pain. Norethin Caden-Eth Estrad-FE (JUNEL FE 10/07, ,) 1 mg-20 mcg (21)/75 mg [...] claim: No 07/25/2023 12/26/2023 01/29/2025 [facility]ck [facility] LEONARD Score 18 (No Myelopathy Symptoms) (more content not included)...[facility]05-21-2025 History of Present illness Narrative* Sumeet De [...] the area around your hips) at the [facility] facility; the imaging order has been sent. - We will review your x-rays and CT images and call you with results. If all screws and fusion sites look stable, you can begin physical therapy and start muscle relaxant medication as discussed. - Ask your insurance sales manager to fax the requested paperwork again to [...] TIME: 3:05 PM PAGER: documented in this encounterZanesville City Hospital03-25-2025 NoteNonvisit Note - PT Pt. no showed to today's 1400 evaluation. She then called to re-schedule it at 1420.-- [facility]03-12-2025 Evaluation + Plan note Future Scheduled Tests Radiology* MRI Spine Cervical w/o Contrast 11/27/24 * MRI Spine Lumbar w/o Contrast 11/27/24 * MRI Spine Thoracic w/o Contrast 11/27/24 [facility] [id number] Miscellaneous Notes* Telephone Encounter - Maria De Jesus Wagner RN - 11/26/2024 2:42 PM EDT Pt was seen at [facility] in [place], [place]. Ph. [phone]. She was seen in the ER on [...] w/ CB for review. documented in this encounterZanesville City Hospital03-11-2025 Telephone encounter Note * Telephone Encounter - Maria De Jesus Wagner RN - 11/26/2024 2:42 PM EDT Pt was seen at [facility] in [place], [place]. Ph. [phone]. She was seen in the ER on 11/24 Called and requested notes be faxed to our office. [facility]03-11-2025 Telephone encounter Note* Telephone Encounter - [...] imaging Update shared w/ CB for review. [facility]03-09-2025 NoteED Patient Education Note Orthopedics Acute [...] Managing pain, stiffness, and swelling ??? Take qqnh-ptc-jsjwqlz and prescription medicines only as told by [...] day. ??? Do not sit, drive, or salt refiner one place for more than 30 minutes [...] control problems. ??? Y (more content not included)...[facility]06-25-2024 Hospital Discharge instructions Patient Education 03/12/2024 16:15:28 Obesity, Adult, Bics-uw-Ommt Obesity, Adult Obesity is having too much [...] food choices, such as grocery stores and [employer]. What are the signs or symptoms? The [...] eat. ?How much exercise you get. Take ymwc-hfz-cvsoagn and prescription medicines only as told by [...] provider. Document Revised: 04/12/2022 Document Reviewed: 04/12/2022 [employer] Patient Education 2022 Workbooks. Follow Up Care 02/07/2024 12:24:41 With:Bianka WOODS CNP Address: [address] [place] [address]- When:Within 6 Month(s) [facility] 05-28-2024 Hospital Discharge instructions Patient Education 02/13/2024 [...] Treatment for this condition includes: Antibiotic medicine. Kika-lzp-xkokubn medicines to treat discomfort. Drinking enough water [...] Follow these instructions at home: Medicines Take mkgy-ejy-dbwbouq and prescription medicines only as told by [...] provider. Document Revised: 04/16/2021 Document Reviewed: 04/16/2021 [employer] Patient Education 2022 Workbooks. Follow Up Care 02/13/2024 12:38:04 With:Bianka WOODS Address: [address] [place] [address] Business (1) When:02/16/2024 15:05:07 [facility]05-28-2024 Evaluation + Plan noteExtracted from: Title:ED NoteAuthor:Max RAMOS, JansenDate:02/13/24 Bacterial infection, unspeci fied (A49.9: Bacterial infection, unspecified) UTI (urinary tract infection), bacterial (N39.0: Urinary tract infection, site not specified) Orders: cephalexin, 500 mg = 1 cap(s), Oral, q12hr, X 7 day(s), # 14 cap(s), Refills(s) 0, Pharmacy: [facility]/pharmacy #[id number], 172.7, cm, 02/13/24 12:50:00 EDT, Height/Length Dosing, 97, kg, 02/13/24 12:50:00 EDT,Weight Dosing ketorolac, 30 mg = 1 mL, Injection, IV Push, Once, Stop date 02/13/24 12:57:00 EDT, STAT, Start date 02/13/24 12:57:00 EDT, 02/13/24 12:57:00 EDT naproxen, 500 mg = 1 tab(s), Oral, BID, # 20 tab(s), Refills(s) 0, Pharmacy: [facility]/pharmacy #[id number], 172.7, cm, 02/13/24 12:50:00 EDT, Height/Length [...] Appointment Date:03/05/2024 03:00:00 PM Scheduled Provider:Jacey Colvin Location:[facility] Appointment Type: Therapy 60 Appointment Date:03/11/2024 02:20:00 PM Scheduled Provider:Bianka WOODS CNP Location:[facility] Appointment Type: Open Appointment Date:03/12/2024 03:00:00 PM Scheduled Provider:Jacey Colvin Location:[facility] Appointment Type: Therapy 60 Diagnostic Tests Pending * Urine Culture 02/13/24 Future Scheduled Tests Radiology* CT Abdomen/Pelvis w/ Contrast 06/20/23 [facility]05-10-2024 Hospital Discharge instructions Patient Education 01/26/2024 17:15:11 Laceration Care, Adult, [id number] Laceration Care, Adult A laceration is a [...] cannot use soap and water, use hand shotgun shell loading machine operator. Do not usedisinfectants or antiseptics, such as [...] Follow these instructions at home: Medicines Take ygsu-bcd-ixsaasf and prescription medicines only as told by [...] provider. Document Revised: 11/11/2021 Document Reviewed: 11/11/2021 [employer] Patient Education 2022 Workbooks. Follow Up Care 01/26/2024 15:28:40 With:Bianka WOODS Address: [address] [place], [place] [address] Business (1) When:01/29/2024 16:45:17 Comments:Call Dr for diagnosis based follow up. Sutures to be removed in 7-10 days. Keep the area dry for 2 days, then may use soap and water to clean around the area. Discussed signs of infection, and when to report to the emergency department. [facility]05-10-2024 Evaluation + Plan noteExtracted from: Title:ED NoteAuthor:Smith [...] Appointment Date:01/30/2024 03:00:00 PM Scheduled Provider:Jacey Colvin Location[facility] Appointment Type:BH Therapy 60 Appointment Date:03/05/2024 03:00:00 PM Scheduled Provider:Jacey Colvin Location:[facility] Appointment Type:BH Therapy 60 Appointment Date:03/12/2024 03:00:00 PM Scheduled Provider:Jacey Colvin Location:[facility] Appointment Type:BH Therapy 60 Future Scheduled Tests Radiology* CT Abdomen/Pelvis w/ Contrast 06/20/23 [facility]04-23-2024 Telephone encounter Note* Telephone Encounter - Concha Mcbride - 01/09/2024 12:16 PM EDT 01/02/[address] De La Cruz not completed; imaging appt was denied due to lack of documentation. [facility]04-23-[facility] Miscellaneous Notes* Telephone Encounter - Concha Mcbride - 01/09/2024 12:16 PM EDT 01/02/[address] De La Cruz not completed; imaging appt was denied due to lack of documentation. documented in this encounterZanesville City Hospital04-16-2024 History of Present illness Narrative* Sumeet [...] Procedure Laterality Date SCOLIOSIS surgery 2018 at [place] Social History Social History Tobacco Use Smoking [...] PGY1 Resident Orthopaedic Surgery documented in this encounterZanesville City Hospital02-29-[facility] Hospital Discharge instructions Patient Education 11/16/2023 14:46:10 Obesity, Adult, Kivk-xy-Jsxy Obesity, Adult Obesity is having too much [...] food choices, such as grocery stores and [employer]. What are the signs or symptoms? The [...] eat. ?How much exercise you get. Take meus-bse-fmkrraf and prescription medicines only as told by [...] provider. Document Revised: 04/12/2022 Document Reviewed: 04/12/2022 [employer] Patient Education 2022 Workbooks. Follow Up Care 10/05/2023 15:15:04 With:Bianka WOODS CNP Address: [address] [place] [address]- When:Within 6 Month(s) [facility] 02-08-2024 History of Present illness Narrative* Hernan [...] 32 minutes of supervised exercise per flowsheet Statistician Theoretical Goals: 1. The patient will achieve at [...] PT Assessment: Patient is discharged to an [facility]. Patient reports 70% improvement since SOC [...] below. Physician Signature: Date: documented in this encounterScotland County Memorial [id number] History of Present illness Narrative* Sumeet De La Cruz MD - 08/28/2023 11:30 AM EST SPINE SURGERY FOLLOW UP This is an in-person visit. Staff note: Doing well postop, some pain at the top of the construct, expected, she is significantly better than preop and pleased with her course thus far, physical therapy, x-rays, follow-up in 6 weeks. This note was dictated with zzfejt-br-ksyw software. Please excuse grammatical errors, brevity, and [...] TIME: 11:31 AM PAGER: documented in this encounterZanesville City Hospital11-13-2023 History of Present illness Narrative* Sumeet De La Cruz MD - 07/31/2023 1:02 PM EST SPINE SURGERY FOLLOW UP This is an in-person visit. Staff note: Patient is seen for 3-week postop visit, doing well, stands with good posture, leg pain and burningis improved to resolved. Leora were removed today without difficulty. Follow-up for her 6-week postoperative visit. All questions were answered to stated satisfaction. Sumeet De La Cruz MD SERVICE DATE: 07/31/2023 SURGERY DATE: 07/11/23 Yaneth Dennis is seen for postop follow uo She is doing well in the postoperative setting. Luis Armando BREEN. Jarrod CP SOB. Incisions healing well Patient Entered [...] TIME: 1:29 PM PAGER: documented in this encounterZanesville City Hospital11-10-2023 Miscellaneous Notes* Telephone Encounter - Rashad Reyes RN - 07/28/2023 10:50 AM EST Neuro SPINE CARE COORDINATION QUICK NOTE Returned call to patient. Leora were advised to be removed 12-14 days post op both at pre op education and via MyChart post op. They will be removed at visit on Tuesday 07/31 Discussed her concerns from MyChart message about incision. No red flags for infection. She states she is concerned about the hump. Advised to discuss with Dr De La Cruz at follow up appointment. * Telephone Encounter - Loretta Quintero - 07/28/2023 9:04 AM EST Patient is calling in to find out if she will be getting her leora removed on Monday Ph. [phone] documented in this encounterZanesville City Hospital11-02-2023 Hospital Discharge instructions Follow Up Care 07/20/2023 09:52:30 With:George LOWE, DEEPTI Zheng, URO Address: When: Unknown [facility] 10-30-2023 Hospital Discharge instructions Patient Education [...] products, such as yogurt. General instructions Take eail-ymb-vqgfyfb and prescription medicines only as told by [...] provider. Document Revised: 05/19/2022 Document Reviewed: 05/19/2022 [employer] Patient Education 2022 Workbooks. 07/17/2023 16:12:29 Generalized Anxiety Disorder, Adult Generalized [...] can increase anxiety. Avoid caffeine and certain bbez-gkz-mvialfc cold medicines. These may make you feel worse. Ask yourpharmacist which medicines to avoid. General instructions Take lfsm-hkw-ukdnuzx and prescription medicines only as told by your health care provider. Understand that you are likely to have setbacks. Accept this and be kind to yourself as you persistto take better care of yourself. Anticipate stressful situations. Create a plan and allow extra time to work with your plan. Recognize and accept your accomplishments, even if you sign hanger them as small. Spend time with people who care about you. Keep all follow-up visits. This is important. Where to find more information National [place] of Mental Health: www.nimh.nih.gov Substance Abuse and [...] department or: Call your local emergency services (926 in the [place] Call a suicide crisis helpline, such as the National Suicide Prevention Lifeline at or 621 in the [place] This is open 24 hours a day in the [place] Text the Crisis Text Line at 117022 (in the [place] Summary Generalized anxiety disorder [...] provider. Document Revised: 03/30/2022 Document Reviewed: 12/26/2021 [employer] Patient Education 2022 Workbooks. Follow Up Care 07/17/2023 13:37:03 With:Bianka RU Address: [address] [place], [place] [phone] Business (1) When:07/20/2023 15:59:38 [facility]10-30-2023 Evaluation + Plan noteExtracted from: Title:ED NoteAuthor:Max RAMOS, JansenDate:07/17/23 Anxiety (F41.9: Anxiety diso rder, unspecified) Chills (R68.83: Chills (without fever)) Hypokalemia (E87.6: Hypokalemia) Orders: escitalopram, 20 mg = 1 tab(s), Oral, Daily, # 30 tab(s), Refills(s) 0, Pharmacy: [facility]/pharmacy #[id number], 172.7, cm, 07/17/23 13:52:00 EDT, Height/Length Dosing, 95.5, kg, 07/17/23 13:52:00 EDT, Weight Dosing lorazepam, 1 mg = 1 tab(s), Oral, TID, X 3 day(s), # 9 tab(s), Refills(s) 0, Pharmacy: [facility]/pharmacy#[id number], 172.7, cm, 07/17/23 13:52:00 EDT, Height/Length Dosing, [...] 08:30:00 AM Scheduled Provider:George LOWE, Clare Lilly Location:[facility] Appointment Type:URO New Patient Future Scheduled Tests Radiology* CT Abdomen/Pelvis w/ Contrast 06/20/23 [facility]10-23-2023 Miscellaneous Notes* Telephone Encounter - Camelia Salazar LSW - 07/10/2023 10:05 AM EDT CARE CONTINUUM ADVISOR ASSESSMENT PRIMARY CARE PHYSICIAN: Bianka Woods CNP, MD OR Surgery Date: 07/11/23 Health [facility] [place] [place] Financial Resources: pt did not specify Primary Contact: Extended Emergency Contact Information Primary Emergency [place]: [place] [address] [facility] Mobile Relation: Spouse Secondary Emergency Contact: Joshua Hines 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 No FREEDOM OF CHOICE: Level of Care Discussed: Home Care Financial Disclosure Provided: No Financial Disclaimer Provided: No Provider List: Home Care Provider list within the patient's requested geographic area shared with the patient/family: Yes - Within 15 [address] of [address] [place] [address] Provider Choices Collected Home Health: no preference Interventions: N/A SIGNATURE: JO Anton PATIENT NAME: Yaneth Dennis DATE: July 10, 2023 TIME: 10:05 AM PAGER/CONTACT #: documented in this encounterZanesville City Hospital10-09-2023 Miscellaneous Notes* Telephone Encounter - Rashad Reyes RN - 06/26/2023 2:58 PM EDT Neuro SPINE CARE COORDINATION QUICK NOTE Responded to patient in My Chart message. * Telephone Encounter - Concha Mcbride - 06/26/2023 1:54 PM EDT Pt called; states he surgery was denied; please advise; ph: [phone] Type Date User Summary Attachment Auth/Cert 06/21/2023 8:56 AM Lakeisha Ann - - Note: RCM P2P NOTIFICATIONS Second attempt: Dr. Sumeet Shah The care team above has been notified via e-mail of the denial and options for peer to peer and appeal. . Type Date User Summary Attachment Auth/Cert 06/19/2023 4:10 PM Lakeisha Ann - - Note: RCM P2P NOTIFICATIONS First attempt: Dr. Sumeet Shah The care team above has been notified via e-mail of the denial and options for peer to peer and appeal. . Type Date User Summary Attachment Auth/Cert 06/19/2023 3:06 PM Elías Purvis - - Note: PAVE UCB DOS: 07/11/2023 [address]mission type: [facility] Insurance name: [facility]: [facility] Main bilingual sales representative, web used; [employer] [facility] Phone number called: NA Time of verification: 1:02 PM Case reference number: [id number] Was initial clinical information received?Y/N: Yes When? NA How many pages were received? NA Procedure(s) denied: [id number] Procedure(s) approved: [id number] 15747 Diagnosis code(s): M48.02 Z98.1 M48.062 Z01.818 May I know when case was denied? 06/18/2023 Rep advised reconsideration is available: N/A What is the reconsideration timeframe? N/A How can it be done? N/A Who can complete the reconsideration? N/A Is the peer to peer available? Yes Is the peer to peer for consultation only? No May I have the P2P ph# along with prompts? [phone] What is the time frame for the [...] or can this be done by his emergency medicine medical director? MD Who can complete the P2P (Doctor, PA, BILINGUAL SCHOOL PSYCHOLOGIST)? Would the peer to peer be available if services have been rendered? Yes Is the appeal available? Yes Can I have the appeal ph# along with prompts (information only or can do verbal appeal)? No Can I have the appeal fax#? [phone] Can I have the appeal mailing address? N/A Attention to? [employer] Appeals Department Is it necessary to include any form? Yes: Provider form: https://www.Dropmysite/documents/oa-ccg-hislnoog-ntgvkmywucvmi-uafesu-fryd/ Member form: https://www.Dropmysite/documents/oadaadwo-tuyozqp-py-quqy-udgufq-pt-members- hhuavi-irct-td-p-0339/ What is the appeal time frame? 60 [...] SPECIALISTS HAVE BEEN NOTIFIED documented in this encounterZanesville City Hospital10-03-2023 Evaluation + Plan note Future Scheduled Tests Radiology* CT Abdomen/Pelvis w/ Contrast 06/20/23 [facility] 10-02-2023 Miscellaneous Notes* Telephone Encounter - [...] was also ordered. Thank you Bing Dash APRN.CHEF & OWNER documented in this encounterZanesville City Hospital09-13-2023 History of Present illness Narrative* Katlin Aj PSYD - 05/31/2023 1:01 PM EDT Behavioral Medicine Group Session TREK for Surgical Success/Empowered Relief for Surgery Patient Name: Yaneth Dennis CC#: [id number] Date of service: May 31, 2023 I have communicated my name and active licensure. The patient's identity and physical location wereverified at the time of this visit. Either the patient or their legal account maintenance representative has been informed of the risks and benefits of -- and alternatives to -- treatment through virtual visit and consents to proceed with the session remotely. 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 Anatomic Lumbar Variant: None. L4-5 is considered the level of the iliac crest and assume there are 5 lumbar-type vertebrae. Precision Machine Operator: ANDREW Transcribe Date/Time: May 24 2023 10:49A Dictated by : SONI THOMAS MD This examination was interpreted and the report reviewed and electronically signed by: SONI THOMAS MD on May 24 2023 10:57AM [facility] DIVISION OF [id number] History of Present illness Narrative* Karina Uribe RT(R) - 05/24/2023 10:40 AM EDT Radiology Service [...] 24, 2023 10:15 AM documented in this encounterZanesville City Hospital09-06-2023 History of Present illness Narrative* Esme [...] IV DATA: Not applicable SIGNED BY: ANMOL Kilgore)(MR) May 24, 2023 9:35 AM documented in this encounterZanesville City Hospital09-01-2023 Miscellaneous Notes* Telephone Encounter - Concha Mcbride - 05/19/2023 3:43 PM EDT [place] [id number] MRI Thoracic Spine [place] [id number] MRI Cervical Spine WO IVCON +04/24/23 OV Notes to: Appeals Confirmation received. documented in this encounterZanesville City Hospital08-21-2023 Miscellaneous Notes* Telephone Encounter - Natalie Mora RN - 05/08/2023 12:58 PM EDT Neuro SPINE CARE COORDINATION QUICK NOTE Call to the pt at Dr. De La Cruz request - OR has been rescheduled for 07-11-23 Case message has been sent documented in this encounterZanesville City Hospital08-17-2023 Miscellaneous Notes* Telephone Encounter - Natalie [...] sent to our office. documented in this encounterZanesville City Hospital08-10-2023 Miscellaneous Notes* Telephone Encounter - Natalie Mora RN - 04/27/2023 1:55 PM EDT Neuro SPINE CARE COORDINATION SURGERY SCHEDULING Patient accepts surgery date of 06-29-[address] De La Cruz. Planned procedure is Revision - extension of fusion to T2. PACC will be [place] 06-16-23 . [employer] : completed Medications reviewed [...] [0] Natalie Mora RN documented in this encounterZanesville City Hospital08-09-2023 Miscellaneous Notes* Telephone Encounter - Natalie Mora RN - 04/26/2023 3:39 PM EDT Neuro SPINE CARE COORDINATION QUICK NOTE Call to the pt to inquire surgical instrumentation OR completed [facility] - she has asked for records to be sent for review. documented in this encounterZanesville City Hospital06-29-2023 History of Present illness Narrative* Phillip Shah PA-C - 03/16/2023 7:10 AM EDT SPINE SURGICAL TRIAGE: LBP, numbness in the legs, trouble walking, weakness Has tried: muscle relaxant Previous surgery 2018 at [place] - scoliosis correction CT report states T3 screw placed into the spinal canal and lucency surrounding screws Order placed for scoli X-Ray. Will have her scheduled with deformity surgeon. * Lisandro Juice Dey - 03/10/2023 1:52 PM EDT Patient name: Yaneth Dennis Are you being referred by a [facility] for Spine Health Provider or Pain Management Provider at [facility]? No If answer is YES please [...] the facility where the MRI/CT/myelogram was completed: [facility] Address: [address] [place] [address] MRI/CT/myelogram viewable in Epic: No If not, please provide [phone] to fax in imaging reports for review. [...] of where the surgery was completed: 2017 [facility] Address: [address] [place] [address] Additional Comments [phone] (Home Phone) documented in this encounterZanesville City Hospital10-19-2022 Hospital Discharge instructions Follow Up Care 07/06/2022 17:31:04 With:Britany HINES DO, FAM Address: [address] [place] [address]- When:Within 6 Month(s) [facility] 06-15-2022 Evaluation + Plan note Future Scheduled Tests Radiology* XR Spine Cervical 4 or 5 Views 03/02/22 * XR Spine Thoracic 3 Views 03/02/22 [facility] Consult note* Clinical Note Date No Information [facility] Work Phone: Discharge summary* Clinical Note Date No Information [facility] Work Phone: Evaluation + Plan note Future Appointments Appointment Date:05/24/2022 03:00:00 PM Scheduled Provider:Britany HINES DO Location:[facility] Appointment Type: Open [facility] Evaluation + Plan note Future Appointments Appointment Date:10/06/2022 04:20:00 PM Scheduled Provider:Britany HINES DO Location:[facility] Appointment Type: Open [facility] Evaluation + Plan note Future Appointments Appointment Date:04/06/2023 04:20:00 PM Scheduled Provider:Britany HINES DO Location:[facility] Appointment Type: Open Future Scheduled Tests Laboratory* Insulin Level Total 10/06/22 * CBC w/ Auto Diff 10/06/22 * Comprehensive Metabolic Panel 10/06/22 * Lipid Panel 10/06/22 * Thyroid Stimulating Hormone 10/06/22 [facility] Evaluation + Plan note Future Appointments Appointment Date:04/06/2023 04:20:00 PM Scheduled Provider:Britany HINES DO Location:[facility] Appointment Type: Open Diagnostic Tests Pending * Insulin Level Total [facility]ments Appointment Date:02/28/2023 03:20:00 PM Scheduled Provider:Bianka WOODS CNP Location:[facility] Appointment Type: Open [facility] Evaluation + Plan note Future Appointments Appointment Date:11/16/2023 02:40:00 PM Scheduled Provider:Bianka WOODS CNP Location:[facility] Appointment Type:FM Open Future Scheduled Tests Radiology* CT Abdomen/Pelvis w/ Contrast 06/20/23 [facility] Evaluation + Plan note Future Appointments Appointment Date:01/04/2024 12:00:00 PM Scheduled Provider:Jacey Colvin Location[facility] Appointment Type:BH Therapy 60 Appointment Date:01/09/2024 12:00:00 PM Scheduled Provider:Jacey Colvin Location:[facility] Appointment Type:BH Therapy 60 Appointment Date:01/16/2024 02:00:00 PM Scheduled Provider:Jacey Colvin Location:[facility] Appointment Type:BH Therapy 60 Appointment Date:01/30/2024 03:00:00 PM Scheduled Provider:Jacey Colvin Location:[facility] Appointment Type:BH Therapy 60 Appointment Date:03/05/2024 03:00:00 PM Scheduled Provider:Jacey Colvin Location:[facility] Appointment Type:BH Therapy 60 Appointment Date:03/12/2024 03:00:00 PM Scheduled Provider:Jacey Colvin Location:[facility] Appointment Type:BH Therapy 60 Future Scheduled Tests Radiology* CT Abdomen/Pelvis w/ Contrast 06/20/23 [facility] evaluation + Plan note Future Appointments Appointment Date:01/09/2024 12:00:00 PM Scheduled Provider:Jacey Colvin Location:[facility] Appointment Type:BH Therapy 60 Appointment Date:01/16/2024 02:00:00 PM Scheduled Provider:Jacey Colvin Location:[facility] Appointment Type:BH Therapy 60 Appointment Date:01/24/2024 02:40:00 PM Scheduled Provider:Bianka WOODS CNP Location:[facility] Appointment Type:FM Open Appointment Date:01/30/2024 03:00:00 PM Scheduled Provider:Jacey Colvin Location:[facility] Appointment Type:BH Therapy 60 Appointment Date:03/05/2024 03:00:00 PM Scheduled Provider:Jacey Colvin Location:[facility] Appointment Type:BH Therapy 60 Appointment Date:03/12/2024 03:00:00 PM Scheduled Provider:Jacey Colvin Location:[facility] Appointment Type:BH Therapy 60 Future Scheduled Tests Radiology* CT Abdomen/Pelvis w/ Contrast 06/20/23 [facility] evaluation + Plan note Future Appointments Appointment Date:01/24/2024 02:40:00 PM Scheduled Provider:Bianka WOODS CNP Location:[facility] Appointment Type:FM Open Appointment Date:01/30/2024 03:00:00 PM Scheduled Provider:Jacey Colvin Location:[facility] Appointment Type:BH Therapy 60 Appointment Date:03/05/2024 03:00:00 PM Scheduled Provider:Jacey Colvin Location:[facility] Appointment Type:BH Therapy 60 Appointment Date:03/12/2024 03:00:00 PM Scheduled Provider:Jacey Colvin Location:[facility] Appointment Type:BH Therapy 60 Future Scheduled Tests Radiology* CT Abdomen/Pelvis w/ Contrast 06/20/23 [facility] evaluation + Plan note Future Appointments Appointment Date:03/05/2024 03:00:00 PM Scheduled Provider:Jacey Colvin Location:[facility] Appointment Type:BH Therapy 60 Appointment Date:03/11/2024 02:20:00 PM Scheduled Provider:Bianka WOODS CNP Location:[facility] Appointment Type:FM Open Appointment Date:03/12/2024 03:00:00 PM Scheduled Provider:Jacey Colvin Location:[facility] Appointment Type:BH Therapy 60 Future Scheduled Tests Radiology* CT Abdomen/Pelvis w/ Contrast 06/20/23 [facility] [place] Evaluation + Plan note Future Appointments Appointment Date:03/14/2024 06:30:00 PM Scheduled Provider: Location:[facility] Appointment Type:US Abdominal/Pelvis ([facility]) Appointment Date:03/27/2024 02:00:00 PM Scheduled Provider:Jacey Colvin Location:[facility] Appointment Type:BH Video Visit Therapy 60 Appointment Date:04/16/2024 03:00:00 PM Scheduled Provider:Jacey Colvin Location:[facility] Appointment Type: Therapy 60 Future Scheduled Tests Radiology* CT Abdomen/Pelvis w/ Contrast 06/20/23 * US Pelvis Non-OB Complete 03/14/24 * US Transvaginal Non-OB 03/14/24 [facility] Evaluation + Plan note Future Appointments Appointment Date:03/27/2024 02:00:00 PM Scheduled Provider:Jacey Colvin Location:[facility] Appointment Type: Video Visit Therapy 60 Appointment Date:04/16/2024 03:00:00 PM Scheduled Provider:Jacey Colvin Location:[facility] Appointment Type: Therapy 60 Future Scheduled Tests Radiology* CT Abdomen/Pelvis w/ Contrast [facility]20[facility] Appointment Date:08/14/2024 11:00:00 AM Scheduled Provider:MIRI MAX Location:[facility] Appointment Type:[facility] Patient - Adult [facility] evaluation + Plan note Future Appointments Appointment Date:09/03/2024 01:00:00 PM Scheduled Provider:Jacey Colvin Location:[facility] Appointment Type: Video Visit Therapy 60 Future Scheduled Tests Radiology* XR Hip 2-3 Views Right 08/29/24 * XR Hip 2-3 Views Left 08/29/24 [facility] Evaluation + Plan note Future Appointments Appointment Date:09/03/2024 01:00:00 PM Scheduled Provider:Jacey Colvin Location:[facility] Appointment Type: Video Visit Therapy 60 [facility] Evaluation + Plan note Future Appointments Appointment Date:10/02/2024 03:00:00 PM Scheduled Provider:Jacey Colvin Location:[facility] Appointment Type:BH Therapy 60 Appointment Date:10/14/2024 12:30:00 PM Scheduled Provider: Location:[facility] Appointment Type:EMG Bilateral Lower Extremity [facility] Evaluation + Plan note Future Appointments Appointment Date:10/14/2024 12:30:00 PM Scheduled Provider: Location:[facility] Appointment Type:EMG Bilateral Lower Extremity [facility] Future Appointments Appointment Date:04/21/2025 08:30:00 AM Scheduled Provider: Location:[place] Appointment Type:PT FCE ([facility]) Future Scheduled Tests Radiology* MRI Spine Cervical w/o Contrast 11/27/24 * MRI Spine Lumbar w/o Contrast 11/27/24 * MRI Spine Thoracic w/o Contrast 11/27/24 [facility]* Diagnosis Juvenile idiopathic scoliosis, unspecified spinal region- Primary [facility] Juvenile idiopathic scoliosis, unspecified spinal region [facility] Diagnosis Cervical spinal stenosis- Primary Spinal [...] Preoperative examination, unspecified [facility] S/P spinal fusion- Primary Arthrodesis status Anemia following surgery Anemia, unspecified Cervical spinal stenosis Spinal stenosis in cervical region S/P spinal fusion Arthrodesis status Spinal stenosis of lumbar region with neurogenic claudication Spinal stenosis, lumbar region, with neurogenic claudication Pre-op testing Preoperative examination, unspecified [facility] Diagnosis Arthrodesis status Cervical spinal stenosis Spinal stenosis in cervical region S/P spinal fusion Arthrodesis status Spinal stenosis of lumbar region with neurogenic claudication Spinal stenosis, lumbar region, with neurogenic claudication Pre-op testing Preoperative examination, unspecified [facility] Diagnosis Spinal stenosis in cervical region- Primary Cervical spinal stenosis Spinal stenosis in cervical region S/P spinal fusion Arthrodesis status Spinal stenosis of lumbar region with neurogenic claudication Spinal stenosis, lumbar region, with neurogenic claudication Pre-op testing Preoperative examination, unspecified [facility]* Diagnosis Preop examination- Primary Preoperative examination, unspecified Cervical spinal stenosis Spinal stenosis in cervical region S/P spinal fusion Arthrodesis status Spinal stenosis of lumbar region with neurogenic claudication Spinal stenosis, lumbar region, with neurogenic claudication Pre-op testing Preoperative examination, unspecified [facility]* Diagnosis S/P spinal fusion- Primary Arthrodesis status [facility]* Diagnosis Cervical spinal stenosis Spinal stenosis in cervical region S/P spinal fusion Arthrodesis status Spinal stenosis of lumbar region with neurogenic claudication Spinal stenosis, lumbar region, with neurogenic claudication Pre-op testing Preoperative examination, unspecified [facility]* Diagnosis 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) [facility]* Diagnosis DDD (degenerative disc disease), thoracolumbar- Primary Degeneration of thoracic or thoracolumbar intervertebral disc History of spinal fusion [facility] Diagnosis DDD (degenerative disc disease), thoracolumbar- Primary Degeneration of thoracic or thoracolumbar intervertebral disc History of spinal fusion [facility] Diagnosis Adolescent idiopathic scoliosis of thoracolumbar region- Primary Scoliosis (and kyphoscoliosis), idiopathic Chronic bilateral low back pain without sciatica [facility]* Diagnosis Cervical spinal stenosis Spinal stenosis [...] unspecified obesity type documented [facility]* Diagnosis Thoracic myelopathy- Primary Spondylosis with [...] type Arthrodesis status documented [facility] this [facility]* Diagnosis Thoracic myelopathy- Primary Spondylosis with [...] type Arthrodesis status documented in this encounter [facility] note* Diagnosis Osteoarthritis of lumbar spine, unspecified spinal osteoarthritis complication status- Primary [facility]* Diagnosis Thoracic myelopathy- Primary Spondylosis with [...] status Arthrodesis status [facility] Diagnosis Dysmenorrhea- Primary Breast lump in female Lump or mass in breast Pelvic pain in female Unspecified symptom associated with female genital organs Menorrhagia with irregular cycle [facility]* Diagnosis PCOS (polycystic ovarian syndrome)- Primary Polycystic ovaries Pelvic congestion syndrome Follow-up exam Unspecified follow-up examination [facility] Clinical Note Date No Information [facility] Work Phone: History of Past illness Narrative* Condition Effective Dates (start - stop) O utcome No Information [facility] Work Phone: History of Present illness Narrative* Encounter Date Complaint History Of Prese nt Illness No Information [facility] Work Phone: Hospital course Narrative No data available for this section [facility] Discharge instructions No data available for this section [facility] Instructions* Date Instruction Additional Infor mation No Information [facility] Work Phone: Progress note No data available for this section [facility] Progress note* Clinical Note Date No Information [facility] Work Phone: [facility] ([facility] Diagnostic Procedure Only (Routine) - Pending ReviewSpecialtyDiagnoses / ProceduresReferred By ContactReferred To ContactXR IMAGING Diagnoses Juvenile idiopathic scoliosis, unspecified spinal region Procedures XR SCOLIOSIS PA STAND/LAT 2V RADEX ENTIR THRC LMBR CRV SAC SPI W/SKULL 2/3 Phillip Cowan PA-C [address] [place] [address] Xr Imaging Referral IDStatusReasonStart DateExpiration DateVisits RequestedVisits [id number] Review Auto-Generated Referral [facility] for referral (narrative)* Diagnostic Procedure Only (Routine) - ClosedSpecialtyDiagnoses / ProceduresReferred By ContactReferred To ContactXR IMAGING Diagnoses Juvenile idiopathic scoliosis, unspecified spinal region Procedures XR SCOLIOSIS PA STAND/LAT 2V RADEX ENTIR THRC LMBR CRV SAC SPI W/SKULL 2/3 VW Phillip Shah PA-C [address] [place] [address] Xr Imaging Referral IDStatusReasonStart DateExpiration DateVisits RequestedVisits [id number] Auto-Generated Referral / [facility] for referral (narrative)* Diagnostic Procedure Only (Routine) - AuthorizedSpecialtyDiagnoses / ProceduresReferred By Contact Referred To ContactXR IMAGING Diagnoses Cervical spinal stenosis S/P spinal fusion Spinal stenosis of lumbar region with neurogenic claudication Pre-op testing Procedures XR SCOLIOSIS PA STAND/LAT 2V RADEX ENTIR THRC LMBR CRV SAC SPI W/SKULL 2/3 Phillip Shah PA-C [address] [place] [address] Xr Imaging Referral IDStatusJereTucson DateExpiration DateVisits RequestedVisits [id number] Auto-Generated Referral * Consult, Test, Treat (Routine) - AuthorizedSpecialtyDiagnoses / Procedures Referred By ContactReferred To Contact Diagnoses Cervical spinal stenosis S/P spinal fusion Spinal stenosis of lumbar region with neurogenic claudication Pre-op testing Procedures REFER TO PACC - PRE ANESTHESIA CONSULTATION CLINIC OFFICE/OUTPATIENT [facility] 60-74 MINUTES Phillip Shah PA-C [address] [place] [address] Referral IDStatusReasonStart DateExpiration DateVisits RequestedVisits [id number] PCP Requested Referral * Consult, Test, Treat (Routine) - AuthorizedSpecialtyDiagnoses / Procedures Referred By ContactReferred To [facility] Diagnoses Cervical spinal stenosis S/P spinal fusion Spinal stenosis of lumbar region with neurogenic claudication Pre-op testing Procedures CONSULT TO [facility] OFFICE/OUTPATIENT [facility] 60-74 MINUTES Phillip Shah PA-C [address] [place] [address] Referral IDStatusReasonStfultonham DateExpiration DateVisits RequestedVisits [id number] PCP Requested Referral [facility] for [facility] (narrative)* Diagnostic Procedure Only (Routine) - Pending ReviewSpecialtyDiagnoses / ProceduresReferred By Contact Referred To ContactXR IMAGING Diagnoses S/P spinal fusion Procedures XR SCOLIOSIS PA STAND/LAT 2V RADEX ENTIR THRC LMBR CRV SAC SPI W/SKULL 2/3 VW Kayleen Velasco MD [address] [place] [address] Xr Imaging [place] [address] Referral IDStatusReasonStfultonham DateExpiration DateVisits RequestedVisits [id number] Review Auto-Generated Referral / Healthcare for referral (narrative)* Diagnostic Procedure Only (Routine) - ClosedSpecialtyDiagnoses / ProceduresReferred By ContactReferred To ContactXR IMAGING Diagnoses Cervical spinal stenosis S/P spinal fusion Spinal stenosis of lumbar region with neurogenic claudication Pre-op testing Procedures XR SCOLIOSIS PA STAND/LAT 2V RADEX ENTIR THRC LMBR CRV SAC SPI W/SKULL 2/3 Phillip Shah PA-C [address] [place] [address] Xr Imaging [place] [address] Referral IDStatusReasonTucson DateExpiration DateVisits RequestedVisits [id number] Auto-Generated Referral / Healthcare for referral (narrative)* Diagnostic Procedure Only (Routine) - Pending ReviewSpecialtyDiagnoses / ProceduresReferred By Contact Referred To ContactXR IMAGING Diagnoses Fusion of spine of thoracolumbar region Procedures XR SCOLIOSIS PA STAND/LAT 2V RADEX ENTIR THRC LMBR CRV SAC SPI W/SKULL 2/3 Phillip Shah PA-C [address] [place] [phone] Xr Imaging [place] [address] Referral IDStatusReasonStart DateExpiration DateVisits RequestedVisits [id number] Review Auto-Generated Referral / * Physical Therapy (Routine) - Pending ReviewSpecialtyDiagnoses / Procedures Referred By ContactReferred To ContactRE[facility] Diagnoses Fusion of spine of thoracolumbar region Procedures CONSULT TO PHYSICAL THERAPY PHYSICAL THERAPY EVALUATION HIGH COMPLEX 45 MINS Phillip Shah PA-C [address] [place] [phone] [facility] [place] [address] [place] [address] Ref[facility] DateExpiration DateVisits RequestedVisits [id number] Review Auto-Generated Referral / Healthcare for referral (narrative) Referred by: BECK MALAGON, MIRI [facility] [place] Reason for referral (narrative)* Reason For Referral No Information [facility] Work Phone: Reason for visit Narrative* Diagnostic Procedure Only (Routine) - ClosedSpecialtyDiagnoses / ProceduresReferred By ContactReferred To ContactXR IMAGING Diagnoses Juvenile idiopathic scoliosis, unspecified spinal region Procedures XR SCOLIOSIS PA STAND/LAT 2V RADEX ENTIR THRC LMBR CRV SAC SPI W/SKULL 2/3 Phillip Shah PA-C [address] [place] [address] Xr Imaging Referral IDStatRutkarli DateExpiration DateVisits RequestedVisits [id number] Auto-Generated Referral / [facility] for visit Narrative* Diagnostic Procedure Only (Routine) - ClosedSpecialtyDiagnoses / ProceduresReferred By ContactReferred To Contact XR IMAGING Diagnoses Cervical spinal stenosis S/P spinal fusion Spinal stenosis of lumbar region with neurogenic claudication Pre-op testing Procedures XR SCOLIOSIS PA STAND/LAT 2V RADEX ENTIR THRC LMBR CRV SAC SPI W/SKULL 2/3 Phillip Shah PA-C [address] [place] [phone] Xr Imaging [place] [address] Referral IDStatusReasonTucson DateExpiration DateVisits RequestedVisits [id number] Auto-Generated Referral / [facility] for visit Narrative* MRI/CT (Routine) - Pending Review SpecialtyDiagnoses / ProceduresReferred By ContactReferred To ContactCT IMAGING Diagnoses Arthrodesis status Procedures CT LUMBAR SPINE WO IVCON CT LUMBAR SPINE W/O CONTRAST MATERIAL Tiny Benson MD [address] [place] [address] Phone: tel: fax: CT IMAGING [place] [address] Referral IDStatusReasonTucson DateExpiration DateVisits RequestedVisits [id number] Review Auto-Generated Referral Patient Cleared - Admin/Delivery Of Shopping News/Director advise to proceed or did not respond [facility] for visit Narrative* Diagnostic Procedure Only (Routine) - ClosedSpecialtyDiagnoses / ProceduresReferred By ContactReferred To Contact XR IMAGING Diagnoses Arthrodesis status Procedures XR SCOLIOSIS PA STAND/LAT 2V RADEX ENTIR THRC LMBR CRV SAC SPI W/SKULL 2/3 VW Tiny Benson MD [facility] [place] [address] Phone: tel: fax: XR IMAGING [place] [address] Referral IDStatusReasonStart DateExpiration DateVisits RequestedVisits [id number] Auto-Generated Referral / [facility] Narrative - Reported* System Pos/Neg Findings No Information [facility] Work Phone: Summary Purpose Family History Family Member Type Diagnosis Age At Onset No Information Advance Directives Directive Yes / No Effective Date File Name No Information Reason for Referral SpecialtyDiagnoses / ProceduresReferred By ContactReferred To ContactMR IMAGING Diagnoses Spinal stenosis of lumbar region, unspecified whether neurogenic claudication present Procedures MRI LUMBAR SPINE WO IVCON MRI SPINAL CANAL LUMBAR W/O CONTRAST MATERIAL Kavya Singh O, CONFIGURATION DEVELOPER.CHEF [employer] OWNER [address] [place] [address] Mr Imaging [place] [address] Referral IDStatusReasonStart DateExpiration DateVisits RequestedVisits [id number] Auto-Generated Referral /[id number] / ProceduresReferred By ContactReferred To ContactCT IMAGING Diagnoses Chronic bilateral low back pain without sciatica Procedures CT THORACIC SPINE WO IVCON CT THORACIC SPINE W/O CONTRAST MATERIAL Sumeet De La Cruz MD [address] [facility] [place] [address] Ct Imaging [place] [address] Referral IDStatusReasonStart DateExpiration DateVisits RequestedVisits [id number] Auto-Generated Referral Clearance Not Met - Admin/Delivery Of Shopping News/Director Advise to Postpone/Reschedule or Not Proceed [id number] / ProceduresReferred By ContactReferred To ContactCT IMAGING Diagnoses Chronic bilateral low back pain without sciatica Procedures CT LUMBAR SPINE WO IVCON CT LUMBAR SPINE W/O CONTRAST MATERIAL Sumeet De La Cruz MD [address] [place] [address] Ct Imaging [place] [address] Referral IDStatusReasonStart DateExpiration DateVisits RequestedVisits [id number] Auto-Generated Referral Clearance Not Met - Admin/Delivery Of Shopping News/Director Advise to Postpone/Reschedule or Not Proceed [id number] / ProceduresReferred By ContactReferred To ContactMR IMAGING Diagnoses Adolescent idiopathic scoliosis of thoracolumbar region Procedures MRI LUMBAR SPINE WO IVCON MRI SPINAL CANAL LUMBAR W/O CONTRAST MATERIAL Sumeet De La Cruz MD [address] [place] [address] Mr Imaging [place] [address] Referral IDStatusReasonStart DateExpiration DateVisits RequestedVisits [id number] Auto-Generated Referral Clearance Not Met - Admin/Delivery Of Shopping News/Director Advise to Postpone/Reschedule or Not Proceed [id number] / ProceduresReferred By ContactReferred To ContactMR IMAGING Diagnoses Adolescent idiopathic scoliosis of thoracolumbar region Procedures MRI THORACIC SPINE WO IVCON MRI SPINAL CANAL THORACIC W/O CONTRAST MATRL Sumeet De La Cruz MD [address] [place] [address] Mr Imaging [place] [address] Referral IDStatusReasonStart DateExpiration DateVisits RequestedVisits [id number] Auto-Generated Referral Clearance Not Met - Admin/Delivery Of Shopping News/Director Advise to Postpone/Reschedule or Not Proceed [id number] / ProceduresReferred By ContactReferred To ContactXR IMAGING Diagnoses Adolescent idiopathic scoliosis of thoracolumbar region Procedures XR SCOLIOSIS PA STAND/LAT 2V RADEX ENTIR THRC LMBR CRV SAC SPI W/SKULL 2/3 VW Sumeet De La Cruz MD [address] [place] [address] Xr Imaging [place] [address] Referral IDStatusReasonStart DateExpiration DateVisits RequestedVisits [id number] Auto-Generated Referral [id number] / ProceduresReferred By ContactReferred To ContactCT IMAGING Diagnoses Arthrodesis status Procedures CT LUMBAR SPINE WO IVCON CT LUMBAR SPINE W/O CONTRAST MATERIAL Kavya Singh, CONFIGURATION DEVELOPER.CHEF [employer] OWNER [address] [place] [phone] Imaging [place] [address] Referral IDStatusReasonStart DateExpiration DateVisits RequestedVisits [id number] Auto-Generated Referral / Additional Source Comments INFORMATION SOURCE (unrecogn ized section and content) DATE CREATED AUTHOR 03/13/2018 [facility] DATE CREATED AUTHOR AUTHOR'S ORGANIZ ATION 03/13/2018 [facility] DATE CREATED AUTHOR AUTHOR'S ORGANIZ ATION 01/29/2022 [facility] DATE CREATED AUTHOR AUTHOR'S ORGANIZ ATION 02/14/2024 [facility] DATE CREATED AUTHOR AUTHOR'S ORGANIZ ATION 03/13/2024 [facility] DATE CREATED AUTHOR AUTHOR'S ORGANIZ ATION 12/15/2024 [facility] DATE CREATED AUTHOR AUTHOR'S ORGANIZ ATION 12/17/2024 [facility] DATE CREATED AUTHOR AUTHOR'S ORGANIZ ATION 02/14/2025 [facility] DATE CREATED AUTHOR AUTHOR'S ORGANIZ ATION 02/25/2025 [facility] DATE CREATED AUTHOR AUTHOR'S ORGANIZ ATION 04/18/2025 [facility] DATE CREATED AUTHOR AUTHOR'S ORGANIZ ATION 05/01/2025 [facility] DATE CREATED AUTHOR AUTHOR'S ORGANIZ ATION 07/11/2025 [facility] DATE CREATED AUTHOR AUTHOR'S ORGANIZ ATION 07/21/2025 [facility] DATE CREATED AUTHOR AUTHOR'S ORGANIZ ATION 07/31/2025 [facility] EPIC Care Team (unrecognized sect ion and content) Team MemberRelationshipSpecialtyStart DateEnd Date Christopher Hutson CNP [address] [address] ReferringFamily Medicine03/07/23Team MemberRelationshipSpecialtyStart DateEnd Date Christopher Hutson CNP [address] [address] ReferringFamily Medicine03/07/23Team MemberRelationshipSpecialtyStart DateEnd Date Christopher Hutson CNP [address] [place] [address] [place] [address] ReferringFamily Medicine03/07/23Team MemberRelationshipSpecialtyStart DateEnd Date Christopher Hutson CNP [address] [address] ReferringFamily Medicine03/07/23Team MemberRelationshipSpecialtyStart DateEnd Date Christopher Hutson, CHEF & OWNER [address] [place] [address] ReferringFamily Medicine03/07/23Team MemberRelationshipSpecialtyStart DateEnd Date Christopher Hutson, CHEF & OWNER [address] [facility] [address] [place] [address] ReferringFamily Medicine03/07/23Team MemberRelationshipSpecialtyStart DateEnd Date Christopher Hutson, CHEF & OWNER [address] [facility] [address] [place] [address] ReferringFamily Medicine03/07/23Team MemberRelationshipSpecialtyStart DateEnd Date Christopher Hutson, CHEF & OWNER [address] [facility] [address] [place] [address] ReferringFamily Medicine03/07/23Team MemberRelationshipSpecialtyStart DateEnd Date Christopher Hutson, CHEF & OWNER [address] [facility] [address] [place] [address] ReferringFamily Medicine03/07/23Team MemberRelationshipSpecialtyStart DateEnd Date Bianka Woods MD [address] [place] [address], [place] [address] PCP - GeneralInternal Medicine06/16/23 Christopher Hutson, CHEF & OWNER [address] [facility] [address] [place] [address] ReferringFamily Medicine03/07/23Team MemberRelationshipSpecialtyStart DateEnd Date Bianka Woods MD [address] [place] [facility] [place] [address] PCP - GeneralInternal Medicine06/16/23 Christopher Hutson, CHEF & OWNER [address] [address] ReferringFamily Medicine03/07/23Team MemberRelationshipSpecialtyStart DateEnd Date Bianka Woods MD [address] [place] [facility] [address] PCP - GeneralInternal Medicine06/16/23 Christopher Hutson, CHEF & OWNER [address] [address] ReferringFamily Medicine03/07/23Team MemberRelationshipSpecialtyStart DateEnd Date Bianka Woods MD [address] [place] [facility] [address] PCP - GeneralInternal Medicine06/16/23 Christopher Hutson, CONFIGURATION DEVELOPER.CHEF & OWNER [address] [address] ReferringFamily Medicine03/07/23Team MemberRelationshipSpecialtyStart DateEnd Date Bianka Woods MD [address] [place] [facility] [address] PCP - GeneralInternal Medicine06/16/23 Christopher Hutson, CONFIGURATION DEVELOPER.CHEF & OWNER [address] [address] ReferringFamily Medicine03/07/23Team MemberRelationshipSpecialtyStart DateEnd Date Bianka Woods MD [address] [place] [facility] [address] PCP - GeneralInternal Medicine06/16/23 Christopher Hutson, CONFIGURATION DEVELOPER.CHEF & OWNER [address] [facility] [address] [place] [address] ReferringFamily Medicine03/07/23Team MemberRelationshipSpecialtyStart DateEnd Date Unallocated, [facility] Provider [address] [place] [address] PCP - GeneralFamily Medicine10/12/23Team MemberRelationshipSpecialtyStart DateEnd Date Unallocated, [facility] Provider [address] [place] [address] PCP - GeneralFamily Medicine10/12/23Team MemberRelationshipSpecialtyStart DateEnd Date Unallocated, [facility] Provider [address] [place] [address] PCP - GeneralFamily Medicine10/12/23Team MemberRelationshipSpecialtyStart DateEnd Date Bianka Woods MD [address] [place] [facility] [address] PCP - GeneralInternal Medicine06/16/23 Christopher Hutson, CONFIGURATION DEVELOPER.CHEF & OWNER [address] [facility] [address] [place] [address] ReferringFamily Medicine03/07/23Team MemberRelationshipSpecialtyStart DateEnd Date Bianka Woods MD [address] [place] [facility] [address] PCP - GeneralInternal Medicine06/16/23 Christopher Hutson, CONFIGURATION DEVELOPER.CHEF & OWNER [address] [facility] [facility] [address] [place] [address] ReferringFamily Medicine03/07/23Team MemberRelationshipSpecialtyStart DateEnd Date Bianka Woods MD [address] [facility] [address] PCP - GeneralInternal Medicine06/16/23 Christopher Hutson, CONFIGURATION DEVELOPER.CHEF & OWNER [address] [facility] [address] [place] [address] ReferringFamily Medicine03/07/23Team MemberRelationshipSpecialtyStart DateEnd Date Bianka Woods MD [address] [place] [facility] [address] PCP - GeneralInternal Medicine06/16/23 Christopher Hutson, CONFIGURATION DEVELOPER.CHEF & OWNER [address] [facility] [address] [place] [address] ReferringFamily Medicine03/07/23Team MemberRelationshipSpecialtyStart DateEnd Date Christopher Hutson, CONFIGURATION DEVELOPER.CHEF & OWNER [address] [facility] [address] [place] [address] ReferringFamily Medicine03/07/23Team MemberRelationshipSpecialtyStart DateEnd Date Bianka Woods MD [address] [place] [facility] [address] PCP - GeneralInternal Medicine06/16/23 Christopher Hutson, CONFIGURATION DEVELOPER.CHEF & OWNER [address] [facility] [address] [place] [address] ReferringFamily Medicine03/07/23Team MemberRelationshipSpecialtyStart DateEnd Date Bianka Woods MD [address] [place] [facility] [address] PCP - GeneralInternal Medicine06/16/23 Christopher Hutson, CONFIGURATION DEVELOPER.CHEF & OWNER [address] [place] [id number] ReferringFamily Medicine03/07/23Team MemberRelationshipSpecialtyStart DateEnd Date Bianka Woods MD [address] [place] [address] PCP - GeneralInternal Medicine06/16/23 Christopher Hutson, CONFIGURATION DEVELOPER.CHEF & OWNER [address] [place] [id number] ReferringFamily Medicine03/07/23Team MemberRelationshipSpecialtyStart DateEnd Date Bianka Woods MD [address] [place] [address] PCP - GeneralInternal Medicine06/16/23 Christopher Hutson, CONFIGURATION DEVELOPER.CHEF & OWNER [address] [address] ReferringFamily Medicine03/07/23Team MemberRelationshipSpecialtyStart DateEnd Date Unallocated, Sejals MD Cathie [address] [place] [address] PCP - GeneralFamily Medicine10/12/23Team MemberRelationshipSpecialtyStart DateEnd Date Unallocated, Ryley Brand MD [address] [place] [address] PCP - GeneralFamily Medicine10/12/23Team MemberRelationshipSpecialtyStart DateEnd Date Bianka Woods MD [address] [place] [facility] [address] PCP - GeneralInternal Medicine06/16/23 Christopher Hutson, CONFIGURATION DEVELOPER.CHEF & OWNER [address] [place] [id number] ReferringFamily Medicine03/07/23Team MemberRelationshipSpecialtyStart DateEnd Date Bianka Woods MD [address] [place] [facility] [address] PCP - GeneralInternal Medicine06/16/23 Christopher Hutson, CONFIGURATION DEVELOPER.CHEF & OWNER [address] [address] ReferringFamily Medicine03/07/23Team MemberRelationshipSpecialtyStart DateEnd Date Unallocated, Ryley Brand MD [facility] [place] [address] PCP - GeneralFamily Medicine10/12/23 Name Effective Dates (start - stop) Status Members No Information Team MemberRelationshipSpecialtyStart DateEnd Date Unallocated, Ryley Brand MD [address] [place] [address] PCP - GeneralFamily Medicine10/12/23Team MemberRelationshipSpecialtyStart DateEnd Date Unallocated, Ryley Brand MD [address] [place] [address] [place] [address] PCP - GeneralFamily Medicine10/12/23Team MemberRelationshipSpecialtyStart DateEnd Date Unallocated, Ryley Brand MD [address] [place] [address] PCP - GeneralFamily Medicine10/12/23Team MemberRelationshipSpecialtyStart DateEnd Date Unallocated, Ryley Brand MD [address] [place] [address] PCP - GeneralFamily Medicine10/12/23 Source Comments (unrecognize d section and content) In the event this informatio n is protected by the Federal Confidentiality of Alcohol and Drug Abuse Patient Records regulations: The Federal rules restrict any use of the information to criminally investigate or prosecute any alcohol or drug abuse patient.[facility] the event this information is protected by the Federal Confidentiality of Alcohol and Drug Abuse Patient Records regulations: The Federal rules restrict any use of the information to criminally investigate or prosecute any alcohol or drug abuse patient.[facility]In the event this information is protected by the Federal Confidentiality of Alcohol and Drug Abuse Patient Records regulations: The Federal rules restrict any use of the information to criminally investigate or prosecute any alcohol or drug abuse patient.[facility]In the event this information is protected by the Federal Confidentiality of Alcohol and Drug Abuse Patient Records regulations: The Federal rules restrict any use of the information to criminally investigate or prosecute any alcohol or drug abuse patient.[facility]In the event this information is protected by the Federal Confidentiality of Alcohol and Drug Abuse Patient Records regulations: The Federal rules restrict any use of the information to criminally investigate or prosecute any alcohol or drug abuse patient.[facility] HospitalIn the event this information is protected by the Federal Confidentiality of Alcohol and Drug Abuse Patient Records regulations: The Federal rules restrict any use of the information to criminally investigate or prosecute any alcohol or drug abuse patient.[facility] HospitalIn the event this information is protected by the Federal Confidentiality of Alcohol and Drug Abuse Patient Records regulations: The Federal rules restrict any use of the information to criminally investigate or prosecute any alcohol or drug abuse patient.[facility]In the event this information is protected by the Federal Confidentiality of Alcohol and Drug Abuse Patient Records regulations: The Federal rules restrict any use of the information to criminally investigate or prosecute any alcohol or drug abuse patient.[facility]In the event this information is protected by the Federal Confidentiality of Alcohol and Drug Abuse Patient Records regulations: The Federal rules restrict any use of the information to criminally investigate or prosecute any alcohol or drug abuse patient.[facility] HospitalIn the event this information is protected by the Federal Confidentiality of Alcohol and Drug Abuse Patient Records regulations: The Federal rules restrict any use of the information to criminally investigate or prosecute any alcohol or drug abuse patient.[facility] HospitalIn the event this information is protected by the Federal Confidentiality of Alcohol and Drug Abuse Patient Records regulations: The Federal rules restrict any use of the information to criminally investigate or prosecute any alcohol or drug abuse patient.[facility] HospitalIn the event this information is protected by the Federal Confidentiality of Alcohol and Drug Abuse Patient Records regulations: The Federal rules restrict any use of the information to criminally investigate or prosecute any alcohol or drug abuse patient.[facility] HospitalIn the event this information is protected by the Federal Confidentiality of Alcohol and Drug Abuse Patient Records regulations: The Federal rules restrict any use of the information to criminally investigate or prosecute any alcohol or drug abuse patient.[facility] HospitalIn the event this information is protected by the Federal Confidentiality of Alcohol and Drug Abuse Patient Records regulations: The Federal rules restrict any use of the information to criminally investigate or prosecute any alcohol or drug abuse patient.[facility] HospitalIn the event this information is protected by the Federal Confidentiality of Alcohol and Drug Abuse Patient Records regulations: The Federal rules restrict any use of the information to criminally investigate or prosecute any alcohol or drug abuse patient.[facility] HospitalIn the event this information is protected by the Federal Confidentiality of Alcohol and Drug Abuse Patient Records regulations: The Federal rules restrict any use of the information to criminally investigate or prosecute any alcohol or drug abuse patient.[facility] HospitalIn the event this information is protected by the Federal Confidentiality of Alcohol and Drug Abuse Patient Records regulations: The Federal rules restrict any use of the information to criminally investigate or prosecute any alcohol or drug abuse patient.[facility] HospitalIn the event this information is protected by the Federal Confidentiality of Alcohol and Drug Abuse Patient Records regulations: The Federal rules restrict any use of the information to criminally investigate or prosecute any alcohol or drug abuse patient.[facility] HospitalIn the event this information is protected by the Federal Confidentiality of Alcohol and Drug Abuse Patient Records regulations: The Federal rules restrict any use of the information to criminally investigate or prosecute any alcohol or drug abuse patient.[facility] HospitalIn the event this information is protected by the Federal Confidentiality of Alcohol and Drug Abuse Patient Records regulations: The Federal rules restrict any use of the information to criminally investigate or prosecute any alcohol or drug abuse patient.[facility] HospitalIn the event this information is protected by the Federal Confidentiality of Alcohol and Drug Abuse Patient Records regulations: The Federal rules restrict any use of the information to criminally investigate or prosecute any alcohol or drug abuse patient.[facility] HospitalIn the event this information is protected by the Federal Confidentiality of Alcohol and Drug Abuse Patient Records regulations: The Federal rules restrict any use of the information to criminally investigate or prosecute any alcohol or drug abuse patient.[facility] HospitalIn the event this information is protected by the Federal Confidentiality of Alcohol and Drug Abuse Patient Records regulations: The Federal rules restrict any use of the information to criminally investigate or prosecute any alcohol or drug abuse patient.[facility]In the event this information is protected by the Federal Confidentiality of Alcohol and Drug Abuse Patient Records regulations: The Federal rules restrict any use of the information to criminally investigate or prosecute any alcohol or drug abuse patient.[facility] HospitalIn the event this information is protected by the Federal Confidentiality of Alcohol and Drug Abuse Patient Records regulations: The Federal rules restrict any use of the information to criminally investigate or prosecute any alcohol or drug abuse patient.[facility] HospitalIn the event this information is protected by the Federal Confidentiality of Alcohol and Drug Abuse Patient Records regulations: The Federal rules restrict any use of the information to criminally investigate or prosecute any alcohol or drug abuse patient.[facility] HospitalIn the event this information is protected by the Federal Confidentiality of Alcohol and Drug Abuse Patient Records regulations: The Federal rules restrict any use of the information to criminally investigate or prosecute any alcohol or drug abuse patient.[facility] HospitalIn the event this information is protected by the Federal Confidentiality of Alcohol and Drug Abuse Patient Records regulations: The Federal rules restrict any use of the information to criminally investigate or prosecute any alcohol or drug abuse patient.[facility] HospitalIn the event this information is protected by the Federal Confidentiality of Alcohol and Drug Abuse Patient Records regulations: The Federal rules restrict any use of the information to criminally investigate or prosecute any alcohol or drug abuse patient.[facility] HospitalIn the event this information is protected by the Federal Confidentiality of Alcohol and Drug Abuse Patient Records regulations: The Federal rules restrict any use of the information to criminally investigate or prosecute any alcohol or drug abuse patient.[facility] HospitalIn the event this information is protected by the Federal Confidentiality of Alcohol and Drug Abuse Patient Records regulations: The Federal rules restrict any use of the information to criminally investigate or prosecute any alcohol or drug abuse patient.[facility] HospitalIn the event this information is protected by the Federal Confidentiality of Alcohol and Drug Abuse Patient Records regulations: The Federal rules restrict any use of the information to criminally investigate or prosecute any alcohol or drug abuse patient.[facility] HospitalIn the event this information is protected by the Federal Confidentiality of Alcohol and Drug Abuse Patient Records regulations: The Federal rules restrict any use of the information to criminally investigate or prosecute any alcohol or drug abuse patient.[facility] HospitalIn the event this information is protected by the Federal Confidentiality of Alcohol and Drug Abuse Patient Records regulations: The Federal rules restrict any use of the information to criminally investigate or prosecute any alcohol or drug abuse patient.[facility] HospitalIn the event this information is protected by the Federal Confidentiality of Alcohol and Drug Abuse Patient Records regulations: The Federal rules restrict any use of the information to criminally investigate or prosecute any alcohol or drug abuse patient.[facility] HospitalIn the event this information is protected by the Federal Confidentiality of Alcohol and Drug Abuse Patient Records regulations: The Federal rules restrict any use of the information to criminally investigate or prosecute any alcohol or drug abuse patient.[facility] Reason for Visit (unrecogniz ed section and content) ReasonCommentsFollow UpReasonCommentsPatient UpdateReasonCommentsAppeal sent SpecialtyDiagnoses / ProceduresReferred By ContactReferred To ContactCT IMAGING Diagnoses Arthrodesis status Procedures CT LUMBAR SPINE WO IVCON CT LUMBAR SPINE W/O CONTRAST MATERIAL Kavya Singh O, CONFIGURATION DEVELOPER.CHEF & OWNER [address] [place] [id number] [facility] Referral IDStatusReasonStart DateExpiration DateVisits RequestedVisits [id number] Auto-Generated Referral /[id number] PainReasonCommentsPreOp CallReason CommentsSurgery deniedReasonCommentsCARE CONTINUUM ADVISOR ASSESSMENTReason CommentsQuestionReasonCommentsPost OpReasonCommentsEstablished PatientFollow Up SpecialtyDiagnoses / ProceduresReferred By ContactReferred To ContactPhysical Therapy Diagnoses Fusion of spine, thoracolumbar region back surgery - scoliosis Procedures [place] PHYS THERAPY EVALUATION Sumeet De La Cruz MD [facility] [address] [place] [address] Hernan Morales, PT [address] [place] [address] Referral IDStatusReasonStart DateExpiration DateVisits RequestedVisits [id number] / Procedures Referred By ContactReferred To ContactMR IMAGING Diagnoses Spinal stenosis of lumbar region, unspecified whether neurogenic claudication present Procedures MRI LUMBAR SPINE WO IVCON MRI SPINAL CANAL LUMBAR W/O CONTRAST MATERIAL Kavya Singh O, CONFIGURATION DEVELOPER.CHEF & OWNER [address] [place] [address] Mr [facility] [place] [address] Referral IDStatusReasonStfultonham DateExpiration DateVisits RequestedVisits [id number] Auto-Generated Referral /[id number] encounter-disregardReasonComments ResultsPatient QuestionReasonCommentsEstablished PatientReasonCommentsDiscuss cycleslump on breastReasonCommentsER [...] BE BASED ON THE PRIMARY CLINICAL RECORDS. [facility]. provides no warranty or guarantee of the accuracy or completeness of information in this document.
--- NOTE | 2025-08-07 15:10 | P.ON_ITS ---
Brief Operative Note Date of procedure: 08/07/25 Pre-op diagnosis general: desires permanent sterilization Post-op diagnosis: same as pre-op Procedure: NAME OF PROCEDURE: robotic assisted diagnostic bilateral laparoscopic salpingectomy PROCEDURE: The patient was taken back to the Operating Room where she was given general anesthesia without difficulty. She was then prepped and draped in the normal sterile fashion after being placed in a dorsal lithotomy position. A wet sponge stick was placed into the patient's vagina. Attention was then turned to the patient's abdomen, where a scalpel was used to make a small infraumbilical incision. The S retractors were then used to dissect the underlying layers until the fascia could be seen. The fascia was then grasped with Rach clamps and tented up. A knife was then used to make a small incision to the fascia. The muscle was identified, at that time two sutures of #0 Vicryl on a GI needle was then used and placed through the fascia. the peritoneum was then identified and entered bluntly. The 10-4 Aspen was then placed into the patient's abdomen. This was confirmed with direct visualization of the bowel, using the laparoscope. The patient's abdomen was then insufflated using approximately 4 liters of CO2 gas. Survey of the patient's abdomen demonstrated ovaries were normal in appearance as well as both tubes and uterus. A second and third rt and lt lateral robotic ports which were 8 mm in size, was then placed after the skin incision was made under direct visualization . the robotic arms were engaged. The patient's tube on the patient's right side was identified and tented up using a grasper, the ligasure apparatus was then used to come across the mesosalpingx from the fimbriated end to the insertion site at the uterus, the tube was then amputated and removed in its entirety. This was done on the contralateral side. The tubes were the removed from the patients abdomen. Excellent hemostasis was noted. The lateral ports were then moved under direct visualization with excellent hemostasis. All instruments were removed from the patient's abdomen. The fascia was closed using the #0 Vicryl on GI needle. The skin was closed using 4-0 Vicryl subcuticularly. All instruments were removed from the patient's vagina as well. The patient was taken out of the dorsal lithotomy position and placed in the supine position and taken to recovery in stable condition. Sponge, lap and needle counts were correct x2. Anesthesia: JAXA Surgeon: Stevenson Kiser Trouble Lineman: Carly Galarza Estimated blood loss (mL): 5 Pathology: other (tubes) Condition: stable Disposition: PACU Urinary Catheter Management Urinary Catheter Management Urethral: Cath placed during this visit: no
[2025-08-07 15:51] LABS: Glucose Urine UA NEGATIVE (NEGATIVE)
[2025-08-07 16:02] LABS: Cast Seen? NONE SEEN #/LPF (NONE SEEN); Crystals Seen? Seen #/HPF (None Seen); Urine Culture Indicated NO
--- NOTE | 2025-08-07 16:02 | PC.NURSE ---
PATIENT STATES SHE FEELS COMFORTABLE
== END 2025-08-07 16:45 | disposition home or self-care (01) ==
LOC: SURGOUT 12:21
PROVIDERS: PCP Nurse Practitioner Family; Visit Provider Obstetrics & Gynecology
PROC: (CPT 840; principal; 2025-08-07 13:55)
DX: Z30.2 Encounter for sterilization (principal); N94.89 Other specified conditions associated with female genital organs and menstrual cycle; Z98.1 Arthrodesis status; F41.9 Anxiety disorder, unspecified; F32.A Depression, unspecified; F43.10 Post-traumatic stress disorder, unspecified
CPT/HCPCS: 58661; 36415; 81001; 84702; 85025; 88302; 88341; 88342; 99999; J1100; J1171; J1885; J2250; J2405; J2704; J3010

== ENCOUNTER 2025-08-08 16:49 | Emergency (ER) | payer OTHER, SELFPAY ==
[2025-08-08] VITALS (17 sets, daily range): BP systolic 95–111; BP diastolic 51–73; PULSE 46–70; TEMP 36.6; O2SAT 96–100; BMI 25.3
--- NOTE | 2025-08-08 17:53 | ECG_ITS ---
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 Measurements Intervals [place] Rate: 43 P: 42 NM: 122 QRS: 79 QRSD: 90 T: 70 QT: 444 QTc: 388 Interpretive Statements 1130 Sinus bradycardia 9140 abnormal rhythm ECG Compared to ECG 07/30/2025 10:23:51 Sinus arrhythmia no longer present Short NM interval no longer present Electronically Signed On 08-10-2025 20:15:50 EST by LARA MORELAND M.D.
--- NOTE | 2025-08-08 17:54 | CT_ITS ---
The [address] [address] Patient Name: AYDE MOYA MRN: [id number] date: 2000 Sex: F Assigned Patient Location: ER Current Patient Location: .[facility] Accession/Order Number: [id number] Exam Date: 08/08/2025 18:19 Report Date: 08/08/2025 19:51 At the request of: SARAI PARTIDA Procedure: CT angio chest CTA Chest with PE protocol TECHNIQUE: Axial imaging with 2-D and 3-D reconstruction. The CT exam was performed using one or more the following dose reduction techniques: Automated exposure control, adjustment of the MA and/or Kv according to patient size, or use of the iterative reconstruction technique. History: Right chest pain. Prior recent surgery COMPARISON: None THYROID: Unremarkable TRACHEA AND BRONCHI: Patent ESOPHAGUS: Unremarkable. HEART: Within normal limits PERICARDIAL EFFUSION: None CORONARY ARTERY CALCIFICATION: None MEDIASTINUM: No adenopathy. No pneumoperitoneum. No mediastinal hematoma. PULMONARY MARVEL: No hilar mass or adenopathy is seen. THORACIC AORTA Unremarkable PULMONARY EMBOLUS: None LUNG NODULE None LUNGS: Lungs are clear PLEURAL EFFUSION: None PNEUMOTHORAX: No pneumothorax seen. CHEST WALL: No abnormality AXILLA: Unremarkable BONY STRUCTURES scoliosis. Spinal hardware fixation. UPPER ABDOMEN: Free air in the upper abdomen likely postsurgical CT/CT angio chest IMPRESSION: No acute pulmonary embolus. Upper abdominal free air likely postsurgical. Impression dictated by: Christian Martinez M.D. 08/08/2025 7:51 PM Dictation Location: [employer] Electronically authenticated by: [id number] Date: 08/08/2025 19:51
[2025-08-08] MEDS: KETOROLAC TROMETHAMINE 30 MG/ML VIAL IVP (18:08)
[2025-08-08 18:31] LABS: Hematocrit 41.4 % (36.0-48.0); Hemoglobin 13.6 g/dL (12.0-16.0); Immature Granulocytes Abs Auto 0.04 10^3/uL (0.00-0.03); Immature Granulocytes Pct Auto 0.3 % (0.0-0.5); Lymphocytes Absolute Auto 3.0 10^3/uL (1.2-3.8); Mean Corpuscular HGB Conc 32.9 g/dL (29.9-35.2); Mean Corpuscular Hemoglobin 31.0 pg (26.7-34.0); Mean Corpuscular Volume 94.3 fL (81.0-99.0); Platelet Count 183 10^3/uL (150-450); Red Blood Count 4.39 10^6/uL (4.20-5.40); White Blood Count 11.7 10^3/uL (4.0-11.0)
[2025-08-08 18:45] LABS: INR 1.03; Partial Thromboplastin Time 26.1 sec (22.3-36.2); Prothrombin Time 10.9 sec (9.0-11.6)
[2025-08-08 18:48] LABS: Alanine Aminotransferase 31 U/L (14-59); Albumin Globulin Ratio 1.2; Albumin Level 3.9 g/dL (3.4-5.0); Alkaline Phosphatase 62 U/L (46-116); Anion Gap 8.7; Aspartate Amino Transferase 19 U/L (15-37); Blood Urea Nitrogen 8.0 mg/dL (7.0-18.0); Calcium 8.9 mg/dL (8.5-10.1); Carbon Dioxide 30.4 mmol/L (21.0-32.0); Chloride 107 mmol/L (98-107); Estimated GFR (African America >60 (>=60 mL/min/1.73m^2); Estimated GFR (Non-African Ame >60 (>=60 mL/min/1.73m^2); Globulin 3.2 g/dL; Glucose 92 mg/dL (74-106); Potassium 3.1 mmol/L (3.5-5.1); Sodium 143 mmol/L (136-145); Total Protein 7.1 g/dL (6.4-8.2)
--- OUTSIDE RECORDS SUMMARY | 2025-08-08 19:07 | XMS_ITS | CCD ---
Author Organization [facility] Care Team Providers Care Machine Learning Intern Name Role Phone REYNOLDS, MONTY Unavailable Unavailable [...] Admitting Unavailable MARGI, DR LEO Attending Unavailable FLOAR, DR BRITANY Mcdaniel Primary Care Unavailable MARGI, DR LEO Admitting Unavailable MARGI, DR LEO Attending Unavailable REQUEST, DR NONE LISTED Primary Care Unavaila ble WEST, DR SANDEE May Consulting Unavailable MARGI, DR LEO Consulting Unavailable Britany HINES Primary Care Physician [phone] Christopher Hutson CNP Unavailable [phone] Bianka Woods MD Primary Care Provider Bianka WOODS Primary Care Physician Annabel CREW CALLER.Christpoher ORDOÑEZ Unavailable [phone] Unallocated, [place] Provider Primary Care Provider Bianka [...] Referring Unavailable ROBUCK, BIANKA Primary Care Unavailable TIYN BENSON Referring Unavailable ROBUCK, BIANKA Primary Care [...] (1 source)Amoxicillin / Clavulanate; Translations: [amoxicillin-clavulanate]Drug AllergyVomiting (disorder)[facility] (20 sources)AMOXICILLIN-POT CLAVULANATE; Translations: [AMOXICILLIN-POT CLAVULANATE]Propensity to adverse reactions to drug (disorder)07-70-9311[facility]kox[facility] (1 source)cefdinirDrug Kwqfpqe39-02-8760JfxOhio [facility] (20 sources)Amoxicillin / Clavulanate; Translations: [amoxicillin-clavulanate] Drug AllergyVomiting (disorder)[facility] (8 sources)cefdinirDrug [id number] Medications Current Medications MedicationDrug Class(es)DatesSig (Normalized)Sig (Original)acetaminophen 500 mg oral tablet (19 sources)Start: 97-39-9391ewph 2 tablets enteral route every six hours as neededacetaminophen (TYLENOL) 500 mg tablet 2 tablets by ORAL/FEEDING TUBE route every 6 hours as needed for pain. 07/15/2023 ActiveComment on above:2 tablets by ORAL/FEEDING TUBE route every 6 hours as needed for pain.acetaminophen 325 mg / oxyCODONE hydrochloride 7.5 mg oral tablet (17 sources)Opioid AgonistStart: 06-02-8777Huahfhgm 7.5 mg-325 mg oral tablet 1 tab(s), Oral, BID, 60 tab(s), Refill(s) 0, [id number],168, cm, 03/06/25 11:42:00 EDT, Height/Length Dosing, 83.1, kg, 03/06/25 11:42:00 EDT, Weight Dosing Start Date: 04/14/25 Status: Ordered Quantity: 60.0 Unit: tab(s) Repeat number: 1 Indications: Painin thoracic spine; Scoliosis, unspecified;Start: 70-38-8600Aepooicd 7.5 mg-325 mg oral tablet 1 tab(s), Oral, Daily, 30 tab(s), Refill(s) 0, [id number], 168, cm, 03/06/25 11:42:00 EDT, Height/Length Dosing, 83.1, kg, 03/06/25 11:42:00 EDT, Weight Dosing Start Date: 03/06/25 Status: Ordered Quantity: 30.0 Unit: tab(s) Repeat number: 1 Indications: Pain in thoracic spine; Scoliosis, unspecified;Start: 66-06-2751Eygzhshc 7.5 mg-325 mg oral tablet 1 tab(s), Oral, Daily, 30 tab(s), Refill(s) 0, [id number] , 172, cm, 01/22/25 15:54:00 EDT, Height/Length Dosing, 88.7, kg, 01/22/25 15:54:00 EDT, Weight Dosing Start Date: 02/17/25 Status: Ordered Quantity: 30.0 Unit: tab(s) Repeat number: 1 Indications: Pain in thoracic spine; Scoliosis, unspecified;Start: 51-43-8447smgflrcfwyuhn-oxycodone 325 mg-5 mg Tab Refill(s) 0 Start Date: 07/20/23 Status: OrderedStart: 10-40-2368hnzamndymxwcs-oxycodone 325 mg-5 mg Tab 1 tab(s), Oral, [...] oral tablet (20 sources)Central Nervous System StimulantStart: 78-62-9857Harhmhls 10 mg oral tablet 10 mg, 1 tab(s), Oral, qAM, 30 tab(s), Refill(s) 0, 30 days, [id number], 172.7, cm, 05/28/25 7:37:00 EDT, Height/Length Dosing, 82.3, kg, 05/28/25 7:37:00 EDT, Weight Dosing Start Date: 06/23/25 Status: Ordered Quantity: 30.0 Unit: tab(s) Repeat number: 1 Indications: Attention-deficit hyperactivity disorder, unspecified type;Start: 99-60-9885Jlqjskfg 10 mg oral tablet 10 mg, 1 tab(s), Oral, qAM, 30 tab(s), Refill(s) 0, 30 days, [id number], 172.7, cm, 04/29/25 19:05:00 EDT, Height/Length Dosing, 80.6, kg, 04/29/25 19:05:00 EDT, Weight Dosing Start Date: 05/22/25 Status: Ordered Quantity: 30.0 Unit: tab(s) Repeat number: 1 Indications: Attention-deficit hyperactivity disorder, unspecified type;Start: 60-38-3376Oramhstw 10 mg oral tablet 10 mg, 1 tab(s), Oral, qAM, 30 tab(s), Refill(s) 0, [id number], 1 68, cm, 03/06/25 11:42:00 EDT, Height/Length Dosing, 83.1, kg, 03/06/25 11:42:00 EDT, Weight DosingStart Date: 04/14/25 Status: Ordered Quantity: 30.0 Unit: tab(s) Repeat number: 1 Indications: Attention-deficit hyperactivity disorder, unspecified type;Start: 23-56-6718Aztvzgjy 10 mg oral tablet 10 mg, 1 tab(s), Oral, qAM, 30 tab(s), Refill(s) 0, [id number], 168, cm, 03/06/25 11:42:00 EDT, Height/Length Dosing, 83.1, kg, 03/06/25 11:42:00 EDT, Weight DosingStart Date: 03/18/25 Status: Ordered Quantity: 30.0 Unit: tab(s) Repeat number: 1 Indications: Attention-deficit hyperactivity disorder, unspecified type;Start: 27-34-8978Kobczhhw 10 mg oral tablet 10 mg, 1 [...] Weight Dosing Start Date: 09/24/24 Status: OrderedStart: 97-79-0282Eqxzdqbv 5 mg oral tablet 5 mg, 1 tab(s), Oral, BID, 60 tab(s), Refill(s) 0, [id number], 172.7, cm, 08/29/24 14:55:00 EST, Height/Length Dosing, 98.2, kg, 08/29/24 14:55:00 EST, Weight DosingStart Date: 08/29/24 Status: Orderedazithromycin 250 mg oral tablet (2 sources)Macrolide AntimicrobialStart: 05-28-2025 End: 84-09-1529Tzjqsyucy 250 mg Tab = 1 packet(s), Oral, As Directed, as directed on package labeling, X 5 day(s),# 6 tab(s), Refills(s) 0, Pharmacy: [facility]acy #[id number], 172.7, cm, 05/28/25 7:37:00 EDT, Height/Length Dosing, 82.3, kg, 05/28/25 7:37:00 EDT, Weight Dosing Start Date: 05/28/25 Stop Date: 06/02/25 Status: Ordered Quantity: 6.0 Unit: tab(s) Repeat number: 1 Indications: Bronchitis, not specified as acute or chronic;Start: 05-13-2025 End: 37-74-9976Zvnenhlvx 250 mg Tab = 1 packet(s), Oral, As Directed, as directed on package labeling, X 5 day(s),# 6 tab(s), Refills(s) 0, Pharmacy: [facility]/pharmacy #[id number], 172.7, cm, 04/29/25 19:05:00 EDT, Height/Length Dosing, 80.6, kg, 04/29/25 19:05:00 EDT, Weight Dosing Start Date: 05/13/25 Stop Date: 05/18/25 Status: Ordered Quantity: 6.0 Unit: tab(s) Repeat number: 1 Indications: Acute pharyngitis, unspecified;bacitracin 0.5 unt/mg topical ointment (1 source)Start: 05-25-2025 End: 69-55-3293ofpybchgpm Top 500 units/g Oint 30 gram 1 john, Topical, QID for 5 day(s), 15 gm, Refill(s) 0, [facility]acy [id number], 172.7, cm, 05/25/25 14:28:00 EDT, Height/Length Dosing, 81, kg, 05/25/25 14:28:00 EDT, Weight Dosing Start Date: 05/25/25 Stop Date: 05/30/25 Status: Ordered Quantity: 15.0 Unit: g Repeat n umber: 1cane (1 source)Start: 30-42-1765ggrewqxxrv 500 mg oral capsule (2 sources)Cephalosporin AntibacterialStart: 05-25-2025 End: 37-78-6639svfl 1 capsule by mouth every eight hoursKeflex 500 mg Cap 500 mg = 1 cap(s), Oral, q8hr, X 5 day(s), # 15 cap(s), Refills(s) 0, Pharmacy: [facility]/pharmacy #[id number], 172.7, cm, 05/25/25 14:28:00 EDT, Height/Length Dosing, 81, kg, 05/25/25 14:28:00EDT, Weight Dosing Start Date: 05/25/25 Stop Date: 05/30/25 Status: Ordered Quantity: 15.0 Unit: cap(s) Repeat number: 1Start: 02-13-2024 End: 29-26-7253mtmr 1 capsule by mouth every twelve hoursKeflex 500 mg Cap 500 mg = 1 cap(s), Oral, q12hr, X 7 day(s), # 14 cap(s), Refills(s) 0, Pharmacy: [facility]/pharmacy #[id number], 172.7, cm, 02/13/24 12:50:00 EDT, Height/Length Dosing, 97, kg, 02/13/24 12:50:00 EDT, Weight Dosing Start Date: 02/13/24 Stop Date: 02/20/24 Status: OrdereddiazePAM 10 mg oral tablet (6 sources)BenzodiazepineStart: 58-65-7742segr 1 tablet by mouth onceValium 10 mg Tab = 1 tab(s), Oral, Once, Refills(s) 0 Start Date: 01/20/25 Status: Ordered Repeat number: 1Start: 43-44-0698okzp 1 tablet by mouth once as needed for anxietyValium 10 mg Tab 10 mg = 1 tab(s), Oral, Once, PRN for anxiety, # 1 tab(s), Refills(s) 0, Pharmacy:[facility]/pharmacy #[id number], 172, cm, 09/24/24 8:39:00 EST, Height/Length Dosing, 95.8, kg, 09/24/24 8:39:00EST, Weight Dosing Start Date: 09/24/24 Status: Ordereddiclofenac sodium 75 mg delayed release oral tablet (18 sources)Nonsteroidal Anti-inflammatory DrugStart: 91-47-1776lzwx 1 tablet by mouth twice dailydiclofenac sodium 75 mg Oral EC Tab 75 mg = 1 tab(s), Oral, BID, # 60 tab(s), Refills(s) 11, Pharmacy: [facility]/pharmacy #[id number], 175.3, cm, 04/11/23 15:31:00 EDT, Height/Length Dosing, 93.3, kg, 04/11/23 15:31:00 EDT, Weight Dosing Start Date: 05/16/23 Status: OrderedStart: 25-77-8589pohu 1 tablet by mouth every twelve hoursdiclofenac, EC, (VOLTAREN) 75 mg EC tablet Take 1 tablet by mouth every 12 hours. 0 04/18/2023 ActiveComment on above:Take 1 tablet by mouth every 12 hours.docusate sodium 50 mg / sennosides, correction 8.6 mg oral tablet (19 sources)Start: 04-72-4593cljq 2 tablets by mouth twice daily in the evening senna-docusate (SENNA-S) 8.6-50 mg per tablet Take 2 tablets by mouth two times a day. 20 tablet 07/15/2023 2:28 PM EDT 07/15/2023 ActiveComment on above:Take 2 tablets by mouth two times a day.doxepin 3 mg oral tablet (2 sources)Tricyclic AntidepressantStart: 57-57-6214bcyr 1 tablet by mouth once daily at bedtimedoxepin 3 mg oral tablet 3 mg = 1 tab(s), Oral, Once a day (at bedtime), # 30 tab(s), Refills(s) 1,Pharmacy: [facility]/pharmacy #[id number], 172.7, cm, 05/28/25 7:37:00 EDT, Height/Length Dosing, 82.3, kg, 05/28/25 7:37:00 EDT, Weight Dosing Start Date: 05/28/25 Status: Ordered Quantity: 30.0 Unit: tab(s) Repeat number: 2 Indications: Insomnia, unspecified;escitalopram 10 mg oral tablet (20 sources)Serotonin Reuptake InhibitorStart: 66-31-8743Bbyybau 20 mg Tab 20 mg = 1 tab(s), Oral, Daily, Take with 10mg tab for total daily dose of 30mg, #90 tab(s), Refills(s) 3, Pharmacy: [facility]/pharmacy #[id number], 168, cm, 03/06/25 11:42:00 EDT, Height/Length Dosing, 83.1, kg, 03/06/25 11:42:00 EDT, Weight Dosing Start Date: 04/14/25 Status: Ordered Quantity: 90.0 Unit: tab(s) Repeat number: 4 Indications: Depression, unspecified;Start: 71-55-7710wpohkvrtzbig oxalate (LEXAPRO) 20 mg tablet Take 30 mg by mouth every afternoon. 04/11/2023 Active Start: 80-42-5883cobeqcdpwehj 10 mg Tab 10 mg = 1 tab(s), Oral, Daily, Take with 20mg tab for total daily dose of 30mg, # 90 tab(s), Refills(s) 3, Pharmacy: [facility]/pharmacy #[id number], 168, cm, 03/06/25 11:42:00 EDT, Height/Length Dosing, 83.1, kg, 03/06/25 11:42:00 EDT, Weight Dosing Start Date: 04/14/25 Status: Ordered Raj ntity: 90.0 Unit: tab(s) Repeat number: 4Start: 40-45-9022evso 1 tablet by mouth once dailyLexapro 5 mg oral tablet 5 mg = 1 tab(s), Oral, Daily, # 30 tab(s), Refills(s) 5, Pharmacy: [facility]/pharmacy #[id number], 180, cm, 04/21/22 15:10:00 EDT, Height/Length Dosing, 93.1, kg, 04/21/22 15:10:00 EDT, Weight Dosing Start Date: 04/21/22 Status: OrderedComment on above:Take 1 tablet by mouth every afternoon. Ethinyl Estradiol / Ferrous fumarate / Norethindrone (20 sources)EstrogenStart: 86-73-4750kcue 1 tablet by mouth once daily in the morningAurovela FE 1/20 1-20 MG-MCG tablet Indications: control counseling TAKE 1 TABLET BY MOUTH EVERY DAY IN THE MORNING 84 tablet 07/09/2025 Active Start: 59-87-9204maycpdjimmdhi-ethinyl estradiol (Aurovela FE 10/07) 1-20 MG-MCG tablet Indications: control counseling TAKE 1 TABLET BY MOUTH EVERY DAY IN THE MORNING 84 tablet 03/28/2025 ActiveStart: 72-49-3141ofidjihpnospj-ethinyl estradiol (Junel FE 10/07) 1-20 MG-MCG tablet Indications: control counse ling Take 1 tablet by mouth in the morning. 28 tablet 12 04/15/2024 ActiveStart: 52-69-6173Jcguh Fe 1/20 oral tablet Refill(s) 0 Start Date: 07/20/23 Status: OrderedStart: 93-04-3733yybl 1 tablet by mouth once daily in the morningJunel FE /20 1-20 MG-MCG tablet Indications: control counseling TAKE 1 TABLET BY MOUTH EVERYDAY IN THE MORNING 28 tablet 12 04/26/2023 ActiveStart: 04-21-2022 take 1 tablet by mouth once dailyJunel Fe 1/20 oral tablet TAKE 1 TABLET BY MOUTH EVERY DAY Start Date: 04/21/22 Status: Ordered Repeat number: 1Start: 23-30-5486wtql 1 tablet by mouth once daily, then take 0.05 tablet by mouth once Norethin Caden-Eth Estrad-FE (10/07, ,) 1 mg-20 mcg (21)/75 mg (7) per tablet TAKE 1 TABLETBY MOUTH EVERY DAY 04/21/2022 ActiveStart: 11-10-3484yorg 1 tablet by mouth once daily, then take 0.05 tablet by mouth onceNorethin Caden-Eth Estrad-FE (10/07, ,) 1 mg-20 mcg (21)/75 mg (7) per tablet TAKE 1 TABLETBY MOUTH EVERY DAY 0 04/21/2022 ActiveComment on above: TAKE 1 TABLET BY MOUTH EVERY DAYEthinyl Estradiol / Levonorgestrel (6 sources)Progestin, Estrogen, Progestin-containing Intrauterine DeviceStart: 34-69-1321ieoc 1 tablet by mouth once daily, then take 1 tablet by mouth once dailylevonorgestrel-ethinyl estradiol (Jolessa) 0.15-0.03 MG tablet Indications: Dysmenorrhea , Pelvic pain in female , Menorrhagia with irregular cycle Take 1 tablet by mouth Daily Take 1 tablet by mouthdaily 84 tablet 3 04/21/2025 Active Start: 04-21-2025 End: 44-02-9815jqgj 1 tablet by mouth once daily, then take 1 tablet by mouth once dailylevonorgestrel-ethinyl estradiol (Jolessa) 0.15-0.03 MG tablet Indications: Dysmenorrhea , Pelvic pain in female , Menorrhagia with irregular cycle Take 1 tablet by mouth Daily Take 1 tablet by mouthdaily 84 tablet 3 04/21/2025 07/14/2025 Activefluocinolone acetonide 0.25 mg/ml topical cream (1 source)CorticosteroidStart: 31-23-9412xtlbolfklqhm Top 0.025% Crm 1 john, Topical, Daily, 60 gram, Refill(s) 1, apply small amount to warts daily and cover with dry dressing., [facility]/pharmacy #[id number], 172, cm, 09/24/24 8:39:00 EST, Height/Length Dosing, 95.8, kg, 09/24/24 8:39:00 EST, Weight Dosing Start Date: 10/07/24 Status: Orderedgabapentin 300 mg oral capsule (20 sources)Anti-epileptic AgentStart: 51-00-1088wvtpmgfszy 100 mg Cap 100 mg = 1 cap(s), Oral, TID, take 100mg capsule with 300mg capsule to = 400mg po TID, # 90 cap(s), Refills(s) 11, Pharmacy: [facility]/pharmacy #[id number], 168, cm, 03/06/25 11:42:00 EDT, Height/Length Dosing, 83.1, kg, 03/06/25 11:42:00 EDT, Weight Dosing Start Date: 03/06/25 Status: Ordered Quantity: 90.0 Unit: cap(s) Repeat number: 12 Indications: Polyneuropathy, unspecified; Unspecified injury at unspecified level of cervical spinal cord, initial encounter; Other muscle spasm; Scoliosis, unspecified;Start: 21-49-6173seua 1 capsule by mouth in the morning, then take 1 capsule by mouth in the evening, then take 1 capsule by mouth at bedtimegabapentin (Neurontin) 300 MG capsule Take 300 mg by mouth in the morning and 300 mg in the eveningand 300 mg before bedtime. 11/27/2024 ActiveStart: 42-74-9003nuim 1 capsule by mouth three times dailygabapentin 100 mg Cap 100 mg = 1 cap(s), Oral, TID, # 90 cap(s), Refills(s) 3, Pharmacy: [facility]/pharmacy #[id number], 172, cm, 09/24/24 8:39:00 EST, Height/Length Dosing, 95.8, kg, 09/24/24 8:39:00 EST, Weight Dosing Start Date: 10/17/24 Status: Ordered handicap placard (1 source)Start: 75-80-6924jebqLVNewbp hydrochloride 25 mg oral tablet (20 sources)AntihistamineStart: 60-53-3996swfm 1 tablet by mouth four times daily as needed for anxietyhydrOXYzine hydrochloride 25 mg Tab 25 mg = 1 tab(s), Oral, QID, PRN for anxiety, # 40 tab(s), Refills(s) 4, Pharmacy: [facility]/pharmacy #[id number], 172, cm, 01/22/25 15:54:00 EDT, Height/Length Dosing, 88.7, kg, 01/22/25 15:54:00 EDT, Weight Dosing Start Date: 03/05/25 Status: Ordered Quantity: 40.0 Unit: tab(s) Repeat number: 5 Indications: Anxiety disorder, unspecified;Start: 33-27-1697zrsn 1 tablet by mouth every six hours as neededhydrOXYzine HCl (Atarax) 25 MG tablet Take 25 mg by mouth every 6 (six) hours if needed 02/10/2023 ActiveStart: 40-67-7417gafx 1 tablet by mouth four times daily as needed for anxietyhydrOXYzine hydrochloride 25 mg Tab 25 mg = 1 tab(s), Oral, QID, PRN for anxiety, # 40 tab(s), Refills(s) 4, Pharmacy: [facility]/pharmacy #[id number], 172, cm, 11/27/24 10:44:00 EDT, Height/Length Dosing, 90.7, kg, 11/27/24 10:44:00 EDT, Weight Dosing Start Date: 11/27/24 Status: Ordered Quantity: 40.0 Unit: tab(s) Repeat number: 5 Indications: Anxiety disorder, unspecified;Start: 04-68-7480dhri 1 tablet by mouth four times daily as needed for anxiety hydrOXYzine hydrochloride 25 mg Tab 25 mg = 1 tab(s), Oral, QID, PRN for anxiety, # 40 tab(s), Refills(s) 0, Pharmacy: [facility]/pharmacy #[id number], 180, cm, 05/24/22 15:16:00 EDT, Height/Length Dosing, 90.2, kg, 05/24/22 15:16:00 EDT, Weight Dosing Start Date: 05/24/22 Status: OrderedComment on above:TAKE 1 TABLET BY MOUTH 4 TIMES A DAY NEEDED FOR ANXIETYibuprofen 800 mg oral tablet (20 sources)Nonsteroidal Anti-inflammatory DrugStart: 93-53-8685gluu 1 tablet by mouth every eight hours as needed for painibuprofen 800 mg Tab 800 mg = 1 tab(s), Oral, q8hr, PRN Pain/Fever, # 30 tab(s), Refills(s) 0, [id number] 172.7, cm, 04/29/25 19:05:00 EDT, Height/Length Dosing, 80.6, kg, 04/29/2519:05:00 EDT, Weight Dosing Start Date: 04/29/25 Status: Ordered Quantity: 30.0 Unit: tab(s) Repeat number: 1Start: 91-15-9452tzbv 1 tablet by mouth every eight hours as neededibuprofen (MOTRIN) 800 mg tablet Take 800 mg by mouth every 8 hours as needed. FOR PAIN. 0 01/02/2023 ActiveStart: 03-02-2022 End: 50-15-3880efks 1 tablet by mouth every twelve hoursibuprofen 800 mg Tab 800 mg = 1 tab(s), Oral, q12hr, X 10 day(s), # 20 tab(s), Refills(s) 1, Pharmacy: [facility]/pharmacy #[id number], 180, cm, 03/02/22 16:05:00 EDT, Height/Length Dosing, 93, kg, 03/02/22 16:05:00 EDT, Weight Dosing Start Date: 03/02/22 Stop Date: 03/22/22 Status: OrderedComment on above:Take 800 mg by mouth every 8 hours as needed. FOR PAIN.imiquimod 50 mg/ml topical cream (4 sources)Start: 36-50-5986czgsc 1 [IU] topically twice dailyimiquimod Top 5% Crm 1 john, Topical, BID, 24 EA, Refill(s) 1, [facility]/pharmacy #[id number], 172, cm, 01/08/2513:59:00 EDT, Height/Length Dosing, 88.2, kg, 01/08/25 13:59:00 EDT, Weight Dosing Start Date: 01/16/25 Status: Ordered Quantity: 24.0 Unit: EA Repeat number: 2 Indications: Viral wart, unspecified;Start: 09-24-2024 End: 07-61-6203hvnravuap Top 5% Crm 1 john, Topical, Bedtime for 6 week(s), 24 EA, Refill(s) 1, [facility]/pharmacy #[id number],172, cm, 09/24/24 8:39:00 EST, Height/Length Dosing, 95.8, kg, 09/24/24 8:39:00 EST, Weight Dosing Start Date: 09/24/24 Stop Date: 12/17/24 Status: Orderedloratadine 10 mg oral tablet (3 sources)Start: 49-57-5263yyxb 1 tablet by mouth once dailyClaritin 10 mg Tab 10 mg = 1 tab(s), Oral, Daily, # 30 tab(s), Refills(s) 11, Pharmacy: [facility]/pharmacy #[id number], 172.7, cm, 04/29/25 19:05:00 EDT, Height/Length Dosing, 80.6, kg, 04/29/25 19:05:00 EDT, Weight Dosing Start Date: 05/13/25 Status: Ordered Quantity: 30.0 Unit: tab(s) Repeat number: 12 Indications: Allergy, unspecified, initial encounter;LORazepam 1 mg oral tablet (1 source)BenzodiazepineStart: 07-17-2023 End: 06-73-6481ycel 1 tablet by mouth three times dailyAtivan 1 mg Tab 1 mg = 1 tab(s), Oral, TID, X 3 day(s), # 9 tab(s), Refills(s) 0, [id number] 172.7, cm, 07/17/23 13:52:00 EDT, Height/Length Dosing, 95.5, kg, 07/17/23 13:52:00 EDT, Weight Dosing Start Date: 07/17/23 Stop Date: 07/20/23 Status: Orderedmeloxicam 15 mg oral tablet (16 sources)Nonsteroidal Anti-inflammatory DrugStart: 12-05-0822rrpniffuo 15 mg Tab Refills(s) 0 Start Date: 07/20/23 Status: OrderedStart: 79-34-1035nlfx 1 tablet by mouth oncemeloxicam (MOBIC) 15 mg tablet Take 1 tablet by mouth every afternoon. 0 04/16/2023 ActiveComment on above:Take 1 tablet by mouth every afternoon.methocarbamol 750 mg oral tablet (20 sources)Muscle RelaxantStart: 17-91-9542tptm 1 tablet by mouth every six hours as neededmethocarbamol (ROBAXIN) 750 mg tablet Take 1 tablet by mouth every 6 hours as needed. 90 tablet 07/15/2023 2:28 PM EDT 07/15/2023 Active Start: 67-33-2447ajjf 1 tablet by mouth twice daily as needed for painRobaxin 500 mg Tab 500 mg = 1 tab(s), Oral, BID, PRN Muscle pain, # 30 tab(s), Refills(s) 0, [id number], 180, cm, 07/06/22 17:07:00 EDT, Height/Length Dosing, 91.3, kg, 07/06/22 17:07:00 EDT, Weight Dosing Start Date: 08/26/22 Status: OrderedStart: 18-78-0519roay 1 tablet by mouth twice daily as needed for painRobaxin 500 mg Tab 500 mg = 1 tab(s), Oral, BID, PRN Muscle pain, # 30 tab(s), Refills(s) 0, [id number], 180, cm, 07/06/22 17:07:00 EDT, Height/Length Dosing, 91.3, kg, 07/06/22 17:07:00 EDT, Weight Dosing Start Date: 07/06/22 Status: OrderedComment on above:Take 1 tablet by mouth every 6 hours as needed.methylPREDNISolone 4 mg oral tablet (1 source)CorticosteroidStart: 05-28-2025 End: 59-65-3548Hgtzro 4 mg Tab = 1 packet(s), Oral, As Directed, as directed on package labeling, X 6 day(s), # 21tab(s), Refills(s) 0, Pharmacy: [facility]/pharmacy #[id number], 172.7, cm, 05/28/25 7:37:00 EDT, Height/Length Dosing, 82.3, kg, 05/28/25 7:37:00 EDT, Weight Dosing Start Date: 05/28/25 Stop Date: 06/03/25 Status: Ordered Quantity: 21.0 Unit: tab(s) Repeat number: 1 Indications: Bronchitis, not specified as acute or chronic;naproxen 500 mg oral tablet (2 sources)Nonsteroidal Anti-inflammatory DrugStart: 47-67-8166rgea 1 tablet by mouth twice dailyNaprosyn 500 mg Tab 500 mg = 1 tab(s), Oral, BID, # 20 tab(s), Refills(s) 0, Pharmacy: [facility]/pharmacy#[id number], 172.7, cm, 02/13/24 12:50:00 EDT, Height/Length Dosing, 97, kg, 02/13/24 12:50:00 EDT, Weight Dosing Start Date: 02/13/24 Status: OrderedStart: 49-06-1104yxol 1 tablet by mouth twice daily naproxen 500 mg Tab 500 mg = 1 tab(s), Oral, BID, Take one tab by mouth two times a day, # 14 tab(s), Refills(s) 0, Pharmacy: [facility]/pharmacy #[id number], 175.3, cm, 10/17/22 11:41:00 EST, Height/Length Dosing, 93, kg, 10/17/22 11:41:00 EST, Weight Dosing Start Date: 10/17/22 Status: Orderednitrofurantoin, macrocrystals 25 mg / nitrofurantoin, monohydrate 75 mg oral capsule (2 sources)Nitrofuran AntibacterialStart: 71-15-4940lxowwdkdqvqitf macrocrystals-monohydrate 100 mg Cap Refills(s) 0 Start Date: 07/20/23 Status: OrderedStart: 06-21-2023 End: 69-71-0054iykl 1 capsule by mouth twice dailynitrofurantoin monohydrate and macrocrystal (MACROBID) 100 mg capsule Take 1 capsule by mouth two times a day for 5 days. 10 capsule 0 06/21/2023 06/26/2023 ExpiredComment on above:Take 1 capsule by mouth two times a day for 5 days.oxyCODONE hydrochloride 5 mg oral tablet (3 sources)Opioid AgonistStart: 07-20-2023 End: 31-07-8909cuby 1 tablet by mouth every six hours [...] acid 0.4 mg/mg topical ointment (1 source)Start: [id number] acid 40% topical stick 1 john, Topical, q48hr, 5.1 gm, Refill(s) 3, wash and dry affected area before applying. Apply directly to wart every 48 hours and secure with duct tape or strong adherent tape., [facility]/pharmacy #[id number], 172, cm, 01/22/25 15:54:00 EDT, Height/Length Dosing, 88.7, kg, 01/22/25 15:54:00 EDT, Weight Dosing Start Date: 01/23/25 Status: Ordered Quantity: 5.1 Unit: g Repeat number: 4 Indications: Viral wart, unspecified;tiZANidine 4 mg oral tablet (20 sources)Central alpha-2 Adrenergic AgonistStart: [id number] 1 tablet by mouth once daily in the eveningtiZANidine 4 mg Tab 4 mg = 1 tab(s), Oral, qPM, # 90 tab(s), Refills(s) 2, Pharmacy: [facility]/pharmacy #[id number], 168, cm, 03/06/25 11:42:00 EDT, Height/Length Dosing, 83.1, kg, 03/06/25 11:42:00 EDT, Weight D osing Start Date: 03/06/25 Status: Ordered Quantity: 90.0 Unit: tab(s) Repeat number: 3 Indications:Other muscle spasm;Start: 81-79-8637fqdf 1 tablet by mouth once daily in the eveningtiZANidine 4 mg Tab 4 mg = 1 tab(s), Oral, qPM, # 90 tab(s), Refills(s) 2, Pharmacy: [facility]/pharmacy #[id number], 172, cm, 11/27/24 10:44:00 EDT, Height/Length Dosing, 90.7, kg, 11/27/24 10:44:00 EDT, Weight Dosing Start Date: 11/27/24 Status: Ordered Quantity: 90.0 Unit: tab(s) Repeat number: 3 Indications:Other muscle spasm;Start: 50-13-4802ojar 1 tablet by mouth once daily in the eveningtiZANidine 4 mg Tab 4 mg = 1 tab(s), Oral, qPM, # 90 tab(s), Refills(s) 2, Pharmacy: [facility]/pharmacy #[id number], 172, cm, 09/24/24 8:39:00 EST, Height/Length Dosing, 95.8, kg, 09/24/24 8:39:00 EST, Weight Dosing Start Date: 09/26/24 Status: OrderedStart: 37-49-0481hkvr 1 tablet by mouth once daily in the eveningtiZANidine 4 mg Tab 4 mg = 1 tab(s), Oral, qPM, # 90 tab(s), Refills(s) 2, Pharmacy: [facility]/pharmacy #[id number], 172.7, cm, 11/16/23 14:41:00 EST, Height/Length Dosing, 95.2, kg, 11/16/23 14:41:00 EST, Weight Dosing Start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 Information Primary Provider: Candelario Wilhelm DO Advanced Irrigation Supervisor:Rosetta Nixon PA-C The exam and treatment you received in the Emergency Department were for an urgent problem and are not intended as complete care. It is important that you follow up with a doctor, nurse practitioner,or physician???s esl instructional assistant for ongoing care. If your symptoms [...] opioids can be used to help relieve qvjpncjw-ks-usumto pain and are often prescribed following a [...] down the toilet, following (more content not included)...[facility] Urineon [id number] identified Cx Nom (U)Microbiology PROCEDURE: Urine Culture [R1] SOURCE: U CleanCatch BODY SITE: COLLECTED DATE/TIME: 04/29/2025 20:43 EDT RECEIVED DATE/TIME: 04/29/2025 21:05 EDT START DATE/TIME: 04/29/2025 21:05 EDT FREE TEXT SOURCE: Candelario Wilhelm DO, DO, Kevin M. FINAL REPORTS Final Report [] Verified Date/Time: 05/01/2025 11:30 EDT <10,000 cfu/ml Mixed skin contaminants Performing Locations R1: This test was performed at: [facility], [address] [place] [address], [phone] , , KeffyrAmcridAshtabula County Medical CenterComment on above:Performed By: #### [id number] ####[facility] [address] [place], [place] [address]ZJ Abdomen/Pelvis w/ Contraston [id number] Abdomen/Pelvis w/ ContrastExam Date/Time: 04/29/2025 21:00 EDT [...] Wilhelm FINAL REPORT Dictated: 04/30/2025 8:15 am dEgar Lassiter MD Signed (Electronic Signature): 04/30/2025 8:15 am Signed by: Edgar Lassiter MD Transcribed by: MESERET Technologist: AbundioUniversity Hospitals Geauga Medical CenterB hCG Qual on 12-52-8147Mksr hCG QlNegativeNormalUniversity Hospitals Geauga Medical CenterComment on above:Performed By: #### [id number] #### [facility] Laboratory [address] [place], [place] [address]EYJqz 28-78-4883Rehsm gap [Moles/Vol]10 mmol/LNormal6-16[facility] Medical CenterComment on above:Performed By: #### [id number] #### [facility] Laboratory [address] [place], [place] [address]AET/Creat Ratio19 No VopwvFqhfjk89-64BthfoqUniversity Hospitals Geauga Medical CenterComment on above:Performed By: #### [id number] #### [facility] Laboratory [address] [place], [place] [address]Qhfjnos [Mass/Vol]9.1 mg/dLNormal8.9-11.1FMemorial Health System Selby General HospitalComment on above:Performed By: #### [id number] #### [facility] Laboratory [address] [place], [place] [address]Hhynxlfz [Moles/Vol]107 mmol/HHsybih660-224BvftklUniversity Hospitals Geauga Medical CenterComment on above:Performed By: #### [id number] #### [facility] Laboratory [address] [place], [place] [address]MV9 [Moles/Vol]27 mmol/EIqjaic60-97HcqokpUniversity Hospitals Geauga Medical Center Comment on above:Performed By: #### [id number] #### [facility] Laboratory [address] [place], [place] [address]Udfohdrfga [Mass/Vol]0.7 mg/dLNormal0.5-1.3FMemorial Health System Selby General HospitalComment on above:Performed By: #### [id number] #### [facility] Laboratory [address] [place], [place] [address]Gwuwtuy [Mass/Vol]87 mg/vGPdfahg53-371YawwbiUniversity Hospitals Geauga Medical CenterComment on above:Performed By: #### [id number] #### [facility] Laboratory [address] [place], [place] [address]Jntzqqcop [Moles/Vol]3.8 mmol/LNormal3.5-5.3FMemorial Health System Selby General HospitalComment on above:Performed By: #### [id number] #### [facility] Laboratory [address] [place], [place] [address]Zxuspp [Moles/Vol]140 mmol/LXtezer219-880IlitorUniversity Hospitals Geauga Medical CenterComment on above:Performed By: #### [id number] #### [facility] Laboratory [address] [place], [place] [address]Aasl nitrogen [Mass/Vol]13 mg/dLNormal5-21[facility] Medical CenterComment on above:Performed By: #### [id number] #### [facility] Laboratory [address] [place], [place] [address]XSB w/ Auto Diffon 52-48-3829Gcmzvddj Absolute0.0 E9/LNormal 0.0-0.2FMemorial Health System Selby General HospitalComment on above:Performed By: #### [id number] #### [facility] Laboratory [address] [place], [place] [address]Okzhfpnfc/100 WBC (Bld)0.4 %Normal0.0-2.0[facility] Medical CenterComment on above:Performed By: #### [id number] #### [facility] Laboratory [address] [place], [place] [address]Zjs Absolute0.0 E9/LNormal0.0-0.5FMemorial Health System Selby General Hospital Comment on above:Performed By: #### [id number] #### [facility] [address] [place], [place] [address]Cmmdevxwumh/100 WBC (Bld)0.3 %Normal0.0-8.0[facility] Medical CenterComment on above:Performed By: #### [id number] #### [facility] Laboratory [address] [place], [place] [address]Sntdmzjyqjl distribution width (RBC) [Ratio]13.3 %Normal 10.9-14.2FMemorial Health System Selby General HospitalComment on above:Performed By: #### [id number] #### [facility] Laboratory [address] [place] [address]Ekozlirjwf (Bld) [Volume fraction]39.6 %Dxwoqz71.0-46.0[facility] CenterComment on above:Performed By: #### [id number] #### [facility] Laboratory [address] [place] [address]Ltgwmgodui (Bld) [Mass/Vol]13.4 g/eMOjowkj28.0-16.0[facility] Medical CenterComment on above:Performed By: #### [id number] #### [facility] Laboratory [address] [place] [address]Rxjfk Absolute2.0 E9/LNormal1.0-4.0[facility] Comment on above:Performed By: #### [id number] #### [facility] Laboratory [address] [place] [address]Uiwoirurngo/100 WBC (Bld)22.0 %Bvxmhr92.0-50.0[facility] Medical CenterComment on above:Performed By: #### [id number] #### [facility] Laboratory [address] [place] [address]MGJ (RBC) [Entitic mass]30.8 snVhhhib68.0-34.0[facility] CenterComment on above:Performed By: #### [id number] #### [facility] Laboratory [address] [place] [address]BMFA (RBC) [Mass/Vol]33.9 g/iDIrtmqn37.4-36.0[facility] CenterComment on above:Performed By: #### [id number] #### [facility] Laboratory [address] [place] [address]GGH (RBC) [Entitic vol]90.8 jAKdbxog34.0-100.0[facility] Medical CenterComment on above:Performed By: #### [id number] #### [facility] Laboratory [address] [place], [place] [address]Loos Absolute0.5 E9/LNormal0.2-1.0[facility] Comment on above:Performed By: #### [id number] #### [facility] Laboratory [address] [place], [place] [address]Aafsqfrzd/100 WBC (Bld)5.4 %Normal4.0-14.0[facility] Medical CenterComment on above:Performed By: #### [id number] #### [facility] [address] [place], [place] [address]Liikfg Absolute6.4 E9/LNormal2.0-7.5FMemorial Health System Selby General Hospital Comment on above:Performed By: #### [id number] #### [facility] Laboratory [address] [place] [address]Ocylks Auto71.9 %Kvsyfv09.0-75.0[facility] Comment on above:Performed By: #### [id number] #### [facility] Laboratory [address] [place], [place] [address]Jztmencq724.0 E9/OZdvvsd588.0-500.0[facility] Comment on above:Performed By: #### [id number] #### [facility] Laboratory [address] [place], [place] [address]Layulgra mean volume (Bld) [Entitic vol]8.7 fLNormal6.4-10.8 [facility] CenterComment on above:Performed By: #### [id number] #### [facility] Laboratory [address] [place], [place] [address]MHA5.4 E12/LNormal4.3-5.9[facility] Medical CenterComment on above:Performed By: #### [id number] #### [facility] Laboratory [address] [place], [place] [address]JYG3.9 E9/LNormal4.0-11.0[facility] Medical CenterComment on above:Performed By: #### [id number] #### [facility] [address] [place], [place] [address]PT Clinical Summaryon [id number] Clinical SummaryED Clinical Summary [address] [address] ED Clinical Summary Person Information Name: YANETH DENNIS [place] Age: 24 Years : 2000 Sex: Female Language: Mauritian PCP: MIRI MAX Marital Status: Single Visit [...] 04/29/2025 22:49:32 04/29/2025 22:49:32 04/29/2025 22:49:32 ADDRESS: [address] [place] [id number] PHYS DOC NOTES: MEDICAL INFORMATION: Prescriptions Given: New Medications [id number], [address] [place], [place] [id number], [phone] ibuprofen (ibuprofen 800 mg Tab) 1 Tablets [...] Follow up: With: Address: When: Mirian Singh [place] [id number] [place] (1[facility] In 3 days 05/02/2025 Comments: Call the [...] (more content notincluded)...NormalFisher Neal Medical CenterED Note-Physicianon [id number] Note-PhysicianED Note-Physician Basic Information Time Seen: Candelario [...] is on control. She has seen her FEDERAL AGENT for this and was told it may [...] # 30 tab(s), Refills(s) 0, Pharmacy: [facility]/pharmacy #61, 172.7, cm, 04/29/25 19:05:00 EDT, Height/Length Dosing, 80.6, kg, 04/29/25 19:05:00 EDT, Weight Dosing ketorolac, 30 mg = 1 mL, Injection, IV Push, Once, Stop date 04/29/25 19:35:00 EDT, STAT, Start date 04/29/25 19:35:00 EDT, 04/29/25 19:35:00 EDT nitrofurantoin, 100 mg = 1 cap(s), Oral, BID, X 3 day(s), # 6 cap(s), Refills(s) 0, [id number], 172.7, cm, 04/29/25 19:05:00 EDT, Height/Length Dosing, 80.6, kg, 04/29/25 19:05:00 EDT, Weight Dosing ondansetron, 4 mg = 1 tab(s), Oral, q8hr, # 12 tab(s), Refills(s) 0, Pharmacy: [facility]/pharmacy #[id number], 172.7, cm, 04/29/25 19:05:00 EDT, Height/Length [...] 800 mg Tab, 8 (more content not included)...[facility] CenterComment on above:Result Comment: Electronically Signed By: Candelario Wilhelm DO.br\Date and Time Signed: 04/29/25 22:42 EDTED Patient Summaryon [id number] Patient SummaryED Patient Summary [place] [id number] Patient Discharge Instructions Person Information Name: YANETH DENNIS Age: 24 Years Arrival Date: 04/29/2025 18:57:15 Discharge Diagnosis: Acute lower UTI; Pelvic congestion syndrome Primary Care Physician: MIRI MAX Provider Information Primary Provider: Candelario Wilhelm DO Advanced Irrigation Supervisor:None The exam and treatment you received in the Emergency Department were for an urgent problem and are not intended as complete care. It is important that you follow up with a doctor, nurse practitioner,or physician???s esl instructional assistant for ongoing care. If your symptoms become worse or you do not improve asexpected and you are unable to reach your usual health care provider, you should return to the Emergency Department. We are available 24 hours a day. YANETH DENNIS has been given the following list of patient education materials, prescriptions and follow-up instructions: Follow-up Instructions: With: Address: When: Mirian Bettencourt [address] [place] [phone] [facility] (1) In 3 days 05/02/2025 Comments: [...] opioids can be used to help relieve utrcbmxp-zi-koekrc pain and are often prescribed following a [...] Valium) ??? Muscle relaxant (more content not included)...NormalUniversity Hospitals Geauga Medical CenterExtra Blueon 60-45-5071Uyji Collected PlasmaYesInvalid Interpretation Code [facility] CenterComment on above:Performed By: #### [id number] #### [facility] Laboratory [address] [place], [place] [address]Lqm Func Panelon 28-38-8585Lycijgz [Mass/Vol]4.3 g/dLNormal 3.3-5.0[facility] Medical CenterComment on above:Performed By: #### [id number] #### [facility] Laboratory [address] [place], [place] [address]Dzivnvm/Globulin [Mass ratio]1.6 {ratio}Normal1.1-2.2FMemorial Health System Selby General HospitalComment on above:Performed By: #### [id number] #### [facility] Laboratory [address] [place], [place] [address]Gqe Phos52 Int._Unit/FNnudxf98-06HfedraUniversity Hospitals Geauga Medical Center Comment on above:Performed By: #### [id number] #### [facility] [address] [place], [place] [address]DYR6 Int._Unit/LNormal6-46[facility] Medical CenterComment on above:Performed By: #### [id number] #### [facility] Laboratory [address] [place], [place] [address]BBH89 Int._Unit/LNormal5-43[facility] Medical CenterComment on above:Performed By: #### [id number] #### [facility] Laboratory [address] [place], [place] [address]Udha Direct0.2 mg/dLNormal0.0-0.4FMemorial Health System Selby General Hospital Comment on above:Performed By: #### [id number] #### [facility] Laboratory [address] [place], [place] [address]Degr Indirect0.5 mg/dLNormal0.1-0.9[facility] Comment on above:Performed By: #### [id number] #### [facility] Laboratory [address] [place], [place] [address]Nmht Total0.7 mg/dLNormal0.0-1.1[facility] Comment on above:Performed By: #### [id number] #### [facility] [address] [place], [place] [address]Zfcvvvsc (S) [Mass/Vol]2.7 g/dLNormal1.4-4.0[facility] Medical CenterComment on above:Performed By: #### [id number] #### [facility] [address] [place], [place] [address]Rgoqgbg [Mass/Vol]7.0 g/dLNormal6.0-7.8[facility] Medical CenterComment on above:Performed By: #### [id number] #### [facility] Laboratory [address] [place] [address]RY with Cult Rflxon 44-59-7627Ngdbg (U)YellowNormalYellowUniversity Hospitals Geauga Medical CenterComment on above:Result Comment: Microscopic readings are only performed on those samples that meet specific criteria set forth by [facility].Performed By: #### [id number] #### [facility] [address] [place] [address]Rloyesn (U) [Mass/Vol]NegativeNormalNegativeUniversity Hospitals Geauga Medical CenterComment on above:Performed By: #### [id number] #### [facility] [address] [place], [place] [address]Immcupv Ql (U)1+ mg/dLAbnormalNegativeUniversity Hospitals Geauga Medical CenterComment on above:Performed By: #### [id number] #### [facility] [address] [place], [place] [address]TX BloodNegativeNormalNegativeUniversity Hospitals Geauga Medical Center Comment on above:Performed By: #### [id number] #### [facility] Laboratory [address] [place] [address] BacteriaTraceNormalTraceUniversity Hospitals Geauga Medical CenterComment on above:Performed By: #### [id number] #### [facility] [address] [place], [place] [address]MY ClarityTurbidAbnormalClearFMemorial Health System Selby General HospitalComment on above:Performed By: #### [id number] #### [facility] Laboratory [address] [place], [place] [address]TY Leuk Ejp896 Elena/uLAbnormalNegativeUniversity Hospitals Geauga Medical CenterComment on above:Performed By: #### [id number] #### [facility] [address] [place], [place] [address]GE MucousTraceNormalNegativeUniversity Hospitals Geauga Medical CenterComment on above:Performed By: #### [id number] #### [facility] [address] [place] [address]NP NitriteNegativeNormalNegativeUniversity Hospitals Geauga Medical Center Comment on above:Performed By: #### [id number] #### [facility] [address] [place], [place] [address]AJ pH7.5Invalid Interpretation Code5.0-9.0[facility] Medical CenterComment on above:Performed By: #### [id number] #### [facility] [address] [place], [place] [address]AX ProteinTraceAbnormalNegativeUniversity Hospitals Geauga Medical Center Comment on above:Performed By: #### [id number] #### [facility] [address] [place], [place] [address]GI XAA7-59Edbtwmje7-7XiqctbMemorial Health System Selby General HospitalComment on above:Performed By: #### [id number] #### [facility] [address] [place], [place] [address]AY Spec Grav1.022Invalid Interpretation Code1.005-1.030[facility] Medical CenterComment on above:Performed By: #### [id number] #### [facility] [address] [place], [place] [address]FW Squam Epithelial>10Invalid Interpretation CodeUniversity Hospitals Geauga Medical CenterComment on above:Performed By: #### [id number] #### [facility] Laboratory [address] [place], [place] [address]SZ UrobilinogenNegativeNormalNegativeUniversity Hospitals Geauga Medical CenterComment on above:Performed By: #### [id number] #### [facility] [address] [place], [place] [address]HI NDD79-60Vlywzgso0-1Frazbj [facility] CenterComment on above:Performed By: #### [id number] #### [facility] [address] [place], [place] [address]Nolyimspzdws (U) [Mass/Vol]NegativeNormalNegativeUniversity Hospitals Geauga Medical CenterComment on above:Performed By: #### [id number] #### [facility] [address] [place], [place] [address]VB Spec DescClean CatchNormCleveland Clinic Children's Hospital for RehabilitationComment on above:Performed By: #### [id number] #### [facility] [address] [place], [place] [address]bOYYqz 44-24-2165qMNZ657 mL/min/1.73 y2Edkisc>=59[facility]auga Medical CenterComment on above:Performed By: #### [id number] #### [facility] [address] [place], [place] [address]Deotofmnyd Visit Summaryon 79-99-9364Qotfurxgxv Visit Summary Ambulatory Visit Summary SONNY YANETH [...] to = 400mg po TID Pickup at [facility]/pharmacy #6173 Changed gabapentin (gabapentin 300 mg Cap) 1 Capsules By Mouth 3 times a day Neuropathy Pickup at [facility]/pharmacy #6173 Unchanged acetaminophen-oxycodone (Percocet 7.5 mg-325 mg oral tablet) 1 Tablets By Mouth Every dayScoliosis Thoracic spine pain Pickup at [facility]/pharmacy #6173 Unchanged amphetamine-dextroamphetamine (Adderall 10 mg oral [...] (in the evening) Muscle spasm Pickup at [facility]/pharmacy #6173 Pharmacy Information [facility]/pharmacy #6173: [address] [place], [place] [phone] What How Much When Why Comments Stop [...] with us by (more content not included)...Normal [facility] Medicine Office/Clinic Noteon 17-21-7991Oeaspq Medicine Office/Clinic NoteFahouse of the good [facility]itan Medicine Office/Clinic Note Chief Complaint needs orders [...] recently saw her neurosurgeon, Dr Rodrigues at [facility] and she was able to get [...] to order a CT for outpatient at [facility] - this is necessary to evaluate [...] 400mg po TID continue with surgeon at [facility] FCE ordered for SSI paperwork 2. Cervical spine pain (M54.2: Cervicalgia) CT ordered for [facility] [place] 3. Injury of cervical spine, (S14.109A: Unspecified injury at unspecified level of cervical spinal cord, initial encounter)Injury of cervical spine see 2 Ordered: gabapentin, 100 mg = 1 cap(s), Oral, TID, take 100mg capsule with 300mg capsule to = 400mg po TID, # 90 cap(s), Refills(s) 11, [facility], 168, cm, 03/06/25 11:42:00 EDT, Height/Length Dosing, 83.1, kg, 03/06/25 11:42:00 EDT, Weight Dosing CT Spine Cervical w/o Contrast [facility] Outpatient Physical Therapy Evaluate Patient, Develop a [...] TID, # 90 cap(s), Refills(s) 11, [facility], 168, cm, 03/06/25 11:42:00 EDT, Height/Length Dosing, 83.1, kg, 03/06/25 11:42:00 EDT, Weight Dosing tizanidine, 4 mg = 1 tab(s), Oral, qPM, # 90 tab(s), Refills(s) 2, [facility], 168, cm, 03/06/25 11:42:00 EDT, Height/Length Dosing, 83.1, kg, 03/06/25 11:42:00 EDT, Weight Dosing Neuropathy (G62.9: Polyneuropathy, unspecified) Ordered: gabapentin, 100 mg = 1 cap(s), Oral, TID, take 100mg capsule with 300mg capsule to = 400mg po TID, # 90 cap(s), Refills(s) 11, [facility], 168, cm, 03/06/25 11:42:00 EDT, Height/Length Dosing, 83.1, kg, 03/06/25 11:42:00 EDT, Weight Dosing gabapentin, 300 mg = 1 cap(s), Oral, TID, # 90 cap(s), Refills(s) 11, [facility],168, cm, 03/06/25 11:42:00 EDT, Height/Length Dosing, 83.1, kg, 03/06/25 11:42:00 EDT, Weight Dosing Other specified postprocedural states (Z98.890: Other specified postprocedural states) Scoliosis (M41.9: Scoliosis, unspecified) Ordered: gabapentin, 100 mg = 1 cap(s), Oral, TID, take 100mg capsule with 300mg capsule to = 400mg po TID, # 90 cap(s), Refills(s) 11, [facility], 168, cm, 03/06/25 11:42:00 EDT, Height/Length Dosing, 83.1, kg, 03/06/25 11:42:00 EDT, Weight Dosing [facility] Outpatient Physical Therapy Evaluate Patient, Develop a Plan of Care, & Implement Plan Orders: hydrOXYzine, 25 mg = 1 tab(s), Oral, QID, PRN for anxiety, # 40 tab(s), Refills(s) 4, [id number], 172, cm, 11/27/24 10:44:00 EDT, Height/Length Dosing, 90.7, kg, 11/27/24 10:44:00 EDT, Weight Dosing hydrOXYzine, 25 mg = 1 tab(s), Oral, QID, PRN for anxiety, # 40 tab(s), Refills(s) 4, [facility] [facility]ITALpharmacy #[id number], (more content not included)...Normal [facility] Medical CenterComment on above:Result Comment: Electronically Signed By: MIRI MAX\.br\Date and Time Signed: 03/06/25 13:02 EDTCNPNon [id number] (NIQ) SONNYYANETH OLEARY ([id number]) 1 F Date Time Provider Department 02/12/25 [...] if we received the paperwork from her [place]. Pt stated it has been sent twice. I do see some from December, not sure if it what needs to be filled out. Pt would like a call back Is there any additional information the provider should know? No Last Office Visit: 02/05/2025 Next scheduled appointment: Visit date not found Best number to reach caller: [phone] Best time to reach caller: any Is [...] Reason for Visit: Results [95] Patient Question [4267] Prescriptions as of 02/17/2025 - dextroamphetamine-amphetamine (ADDERALL) [...] 07/14/2023 Encounter Status:Closed by RASHAD REYES on 02/13/25NoSumma Health Barberton CampusXR Thoracic and lumbar spine Views for scoliosis W standingon [id number]: T2-L3 posterior fusion with intact hardware and unchanged residual S-shaped scoliosis. Yard Person: ANDREW Transcribe Date/Time: Feb 11 2025 8:29A Dictated by : MARC DESIR MD This examination was interpreted and the report reviewed and electronically signed by: EDGAR LECHUGA MD on Feb 11 2025 9:09AM [facility] KATHY RADIOLOGY* * *Final Report* * * [...] and disc heights are maintained. KATHY RADIOLOGYProvider, [facility] [place] - 02/11/2025 * * *Final Report* * * DATE OF EXAM: Feb 09 2025 9:18AM [facility] 5251 - XR SCOLIOSIS 2V PA [...] intact hardware and unchanged residual S-shaped scoliosis. Yard Person: PSCB Transcribe Date/Time: Feb 11 2025 8:29A Dictated by : MARC DESIR MD This examination was interpreted and the report reviewed and electronically signed by: EDGAR LECHUGA MD on Feb 11 2025 9:09AM [facility] LUMBAR SPINE WO IVCONon [id number] LUMBAR SPINE WO IVCON* * *Final Report* * * DATE OF EXAM: Feb 09 2025 8:55AM [facility] 0508 - CT LUMBAR SPINE WO IVCON [...] DATE OF EXAM: Feb 09 2025 8:55AM [facility] 0508 - CT LUMBAR SPINE WO IVCON [...] in h (more content not included)...KATHY RADIOLOGYProvider, [facility] [place] - 02/09/2025 * * *Final Report* * * DATE OF EXAM: Feb 09 2025 8:55AM [facility] 0508 - CT LUMBAR SPINE WO IVCON [...] lumbar vertebral bodies ar (more content not included)...[facility] THORACIC SPINE WO IVCONon [id number] THORACIC SPINE WO IVCON* * *Final Report* * * DATE OF EXAM: Feb 09 2025 8:55AM [facility] 0514 - CT THORACIC SPINE WO IVCON [...] reveal no compressi (more content not included)...Normal [facility] Thoracic spine WO contraston 02-09-2025* * *Final Report* * * DATE OF EXAM: Feb 09 2025 8:55AM [facility] 0514 - CT THORACIC SPINE WO IVCON [...] normal in (more content not included)...KATHY RADIOLOGYProvider, [facility] [place] - 02/09/2025 * * *Final Report* * * DATE OF EXAM: Feb 09 2025 8:55AM [facility] 0514 - CT THORACIC SPINE WO IVCON [...] The lumbar vertebral bodies (more content not included)...[facility] CenterNo Panel Informationon 54-29-3691WHTERITLXG: 1. Posterior fusion from T2 through L3. [...] This was present previously. 7. Thoracolumbar scoliosis. Yard Person: ANDREW Transcribe Date/Time: Feb 09 2025 9:06A Dictated by : FRANK BENJAMIN MD This examination was interpreted and the report reviewed and electronically signed by: FRANK BENJAMIN MD on Feb 09 2025 9:34AM EST [place] RADIOLOGYRadiology Study observation (narrative)[facility] InformationOrdered By: Ccf Provider on [id number] ClinicXR SCOLIOSIS 2V PA STAND/LATon 14-19-0795EH SCOLIOSIS 2V PA STAND/LAT* * *Final Report* [...] intact hardware and unchanged residual S-shaped scoliosis. Yard Person: ANDREW Transcribe Date/Time: Feb 11 2025 8:29A Dictated by : MARC DESIR MD This examination was interpreted and the report reviewed and electronically signed by: EDGAR LECHUGA MD on Feb 11 2025 9:09AM EST [id number]. George Regional HospitalXR Thoracic and lumbar spine Views for scoliosis W standingon [id number] Study observation (narrative) [facility] 71-21-0591OANFNkyitz Visit (SPNSMN) YANETH DENNIS ([id number]) 1 F Date Time Provider Department 02/05/25 [...] the area around your hips) at the [facility] facility; the imaging order has been sent. - We will review your x-rays and CT images and call you with results. If all screws and fusion sites look stable, you can begin physical therapy and start muscle relaxant medication as discussed. - Ask your supervisor nuclear medicine to fax the requested paperwork again to [...] Other Off work 1 (more content not included)...NormalSt. Francis HospitalCOon 86-80-0684FZJANokltu TextNormalCBellevue Hospital 88-31-0090IYNY Telephone (NIQ) YANETH DENNIS ([id number]) 1 F Date Time Provider Department 02/04/25 [...] 07/14/2023 Encounter Status:Closed by CONCHA MCBRIDE on 02/04/25C[facility] Hospitalulatory Visit Summaryon 24-24-4512Jhtymxibdl Visit Summary Ambulatory Visit Summary YANETH DENNIS [...] aday Scoliosis Thoracic spine pain Pickup at [facility]/pharmacy #6169 Unchanged amphetamine-dextroamphetamine (Adderall 10 mg oral tablet) 1 Tablets By Mouth Once a day (in the morning) ADHD Pickup at [facility]/pharmacy #6173 Unchanged amphetamine-dextroamphetamine (Adderall XR 10 mg Cap-ER) 1 Capsules By Mouth Once a day (in the morning) ADHD Pickup at [facility]/pharmacy #6173 Unchanged diazepam (Valium 10 mg Tab) [...] (in the evening) Muscle spasm Pharmacy Information [facility]/pharmacy #6173: [address] [place], [place] [phone] Allergies Augmentin (Vomiting) Problems Ongoing - Any [...] you for choosing us for your care. [facility] Medicine Office/Clinic Noteon 68-27-7038Nzcqhn Medicine Office/Clinic NoteFamily Medicine Office/Clinic Note Chief [...] pending an MRI of the area through [facility] and her prior surgeon and this [...] qAM, # 30 cap(s), Refills(s) 0, Pharmacy: [facility]/pharmacy #6173, 172, cm, 01/22/25 15:54:00 EDT, Height/Length [...] Allergies Augmentin (Vomiting) Social (more content not included)...[facility] Medical CenterComment on above:Result Comment: Electronically Signed By: MIRI MAX\.br\Date and Time Signed: 01/22/25 16:15 EDTAmbulatory Visit Summaryon 31-21-0931Grutcnfcxd Visit SummaryAmbulatory Visit Summary YANETH DENNIS :2000 [...] hours Strep throat Duration: 7 DaysPickup at [facility]/pharmacy #6173 Unchanged acetaminophen-oxycodone (Percocet 7.5 mg-325 mg oral tablet) 1 Tablets By Mouth 3 times aday Scoliosis Pickup at [facility]/pharmacy #6173 Unchanged amphetamine-dextroamphetamine (Adderall 10 mg oral [...] total daily dose of 30mg Pickup at [facility]/pharmacy #6173 Unchanged ethinyl estradiol-norethindrone ( oral tablet) [...] Pharmacy Information [facility]pharmacy #[id number]: [address] [place], [place] [phone] What How Much When Why Comments Stop [...] you for choosing us for your care. [facility] Medicine Office/Clinic Noteon 96-28-2488Yskmap Medicine Office/Clinic NoteSaint Monica'S Home Medicine Office/Clinic Note Chief Complaint Sore throat [...] day(s), # 14 cap(s), Refills(s) 0, Pharmacy: [facility]/pharmacy #6173, 172, cm, 01/08/25 13:59:00 EDT, Height/Length Dosing, 88.2, kg, 01/08/25 13:59:00 EDT, Weight Dosing 2. Thoracic spine pain (M54.6: Pain in thoracic spine) refill pain medication pending eval per neuro and surgery Depression (F32.A: Depression, unspecified) Ordered: escitalopram, 20 mg = 1 tab(s), Oral, Daily, Take with 10mg tab for total daily dose of 30mg, # 90 tab(s), Refills(s) 3, Pharmacy: [facility]/pharmacy #6173, 172, cm, 01/08/25 13:59:00 EDT, Height/Length Dosing, 88.2, kg, 01/08/25 13:59:00 EDT, Weight Dosing Scoliosis (M41.9: Scoliosis, unspecified) Ordered: acetaminophen-oxycodone, 1 tab(s), Oral, TID, 30 tab(s), Refill(s) 0, [facility]/pharmacy #6173, 172, cm, 01/08/25 13:59:00 EDT, Height/Length [...] Recorded poliovirus vaccine, i (more content not included)...[facility] Medical CenterComment on above:Result Comment: Electronically Signed By: MIRI MAX\.br\Date and Time Signed: 01/08/25 14:42 EDTInterdisciplinary Note - PTon 60-56-3342Pnbvwvqeeludbzlen Note - PTInterdisciplinary Note - PT Pt. no showed for her eval on 12-13-24.[facility] CenterC Urineon [id number] identified Cx Nom (U)Microbiology PROCEDURE: Urine Culture [R1] SOURCE: U CleanCatch BODY SITE: COLLECTED DATE/TIME: 12/12/2024 12:12 EDT RECEIVED DATE/TIME: 12/12/2024 17:41 EDT START DATE/TIME: 12/12/2024 17:41 EDT FREE TEXT SOURCE: BECK MALAGON, BEKC MALAGON, MIRI RILEY FINAL REPORTS Final Report [] Verified Date/Time: 12/14/2024 09:07 EDT 1,000 cfu/ml Mixed skin contaminants Performing Locations R1: This test was performed at: [facility], [address] [place] [address], [facility] , , RjquveMbgxcrMarymount HospitalComment on above:Performed By: #### [id number] #### [facility] [address] [place] [address]Psbkrihrua Visit Summaryon 26-60-7593Etvdayvbsi Visit Summary Ambulatory Visit Summary DARLENE DENNISGILBERT [...] of urination Duration: 7 Days Pickup at [facility]/pharmacy #6173 New phenazopyridine (Pyridium 100 mg Tab) 1 Tablets By Mouth 3 times a day Urgency of urination Duration: 3 Days Pickup at [facility]/pharmacy #6173 Unchanged acetaminophen-oxycodone (Percocet 7.5 mg-325 mg oral tablet) 1 Tablets By Mouth 3 times aday Scoliosis Pickup at [facility]/pharmacy #6173 Unchanged amphetamine-dextroamphetamine (Adderall 10 mg oral [...] (in the evening) Muscle spasm Pharmacy Information [facility]/pharmacy #6173: [address] [place], [place] [phone] Allergies Augmentin (Vomiting) Problems Ongoing - Any [...] you for choosing us for your care. [facility] Medicine Office/Clinic Noteon 42-72-7095Uuuksl Medicine Office/Clinic NoteSaint Monica'S Home Medicine Office/Clinic Note Chief Complaint Bladder infection [...] Urnls Dip Stick Auto w/o Microscopy POC 10073 2. Scoliosis (M41.9: Scoliosis, unspecified) refill pain [...] Recorded varicella virus vaccin (more content not included)...[facility] Medical CenterComment on above:Result Comment: Electronically Signed By: BECK MALAGON, MIRI\.br\Date and Time Signed: 12/12/24 11:56 EDTLaboratory - Microbiology and Antimicrobial susceptibilityOrdered By: Kailyn Loyola on 89-44-4221Qsdrjled identified Cx Nom (U)No growth to [facility] CenterED Note-Physicianon 63-06-2538FV Note-PhysicianED Note-Physician Basic Information Time Seen: Jermain [...] made to ensure accuracy, however, inadvertently computerized lacquer coater mistakes may be present. Appropriate healthcare PPE [...] 4 mg= 1 tab(s), (more content not included)...[facility] Medical CenterComment on above:Result Comment: Electronically Signed By: Jermain Santana PA-C\.br\Date and Time Signed: 11/24/2514:48 EDT\.br\Electronically Co-Signed By: Blaze Bailey MD\.br\Date and Time Co-Signed: 12/01/24 00:48 EDTAmbulatory Visit Summaryon 95-65-1536Jjyzhyjppt Visit Summary Ambulatory Visit Summary YANETH DENNIS :2000 Visit Date:11/27/2024 Ambulatory Visit Instructions Your Diagnosis Back pain with history of spinal surgery Nerve damage Scoliosis, Scoliosis Anxiety Claustrophobia Muscle spasm Neuropathy Other specified postprocedural states Your Care Team Attending Physician - MIRI MAX Primary Care Physician - BECK MALAGON, MRII This Is Your Medications List acetaminophen-oxycodone (Percocet [...] No, Cervical spine pain, pp_set_radiology_subspecialty, [facility] - [facility] MRI Spine Lumbar w/o Contrast, 11/27/24, Routine, Order for Future Visit, Transport Mode: Ambulatory, Reason: Pain, No, No, Lumbar spine pain, pp_set_radiology_subspecialty, [facility] - [facility] MRI Spine Thoracic w/o Contrast, 11/27/24, Routine, Order for Future Visit, Transport Mode: Ambulatory, Reason: Pain, No, No, Thoracic back pain, pp_set_radiology_subspecialty, Robert - [facility] Medications What How Much When Why Instructions Changed acetaminophen-oxycodone (Percocet 7.5 mg-325 mg oral tablet) 1 Tablets By Mouth 3 times a day Scoliosis Pickup at [facility]/pharmacy #5907 Changed diazepam (Valium 10 mg Tab) 1 Tablets By Mouth Once as needed for for anxiety Claustrophobia one time dose prior to MRI Pickup at [facility]/pharmacy #6173 Changed gabapentin (gabapentin 300 mg Cap) 1 Capsules By Mouth 3 times a day Neuropathy Pickup at [facility]/pharmacy #6173 Unchanged amphetamine-dextroamphetamine (Adderall 10 mg oral [...] needed for for anxiety Anxiety [facility] Unchanged tizanidine (tiZANidine 4 mg Tab) 1 Tablets By Mouth Once a day (in the evening) Muscle spasm [facility] [address] [place], [place] [phone] Allergies Augmentin (Vomiting) Problems Ongoing - Any [...] you for choosing us for your care. [facility] Medicine Office/Clinic Noteon 23-84-8750Adzgcp Medicine Office/Clinic NoteFahouse of the good samaritan Medicine Office/Clinic Note Chief Complaint ER f/u HPI Staff ER followup: Hospital:[facility] Visit date:11/24/24 Symptoms the patient presented with: [...] MRI, # 1 tab(s), Refills(s) 0, [facility], 172, cm, 11/27/24 10:44:00 EDT, Height/Length Dosing, 90.7, kg, 11/27/24 10:44:00 EDT, Weight Dosing Muscle spasm (M62.838: Other muscle spasm) Ordered: tizanidine, 4 mg = 1 tab(s), Oral, qPM, # 90 tab(s), Refills(s) 2, [facility], 172, cm, 11/27/24 10:44:00 EDT, Height/Length Dosing, 90.7, kg, 11/27/24 10:44:00 EDT, Weight Dosing Neuropathy (G62.9: Polyneuropathy, unspecified) Ordered: gabapentin, 300 mg = 1 cap(s), Oral, TID, # 90 cap(s), Refills(s) 3, [facility], 172, cm, 11/27/24 10:44:00 EDT, [...] Given Postpone due to (more content not included)...[facility] Medical CenterComment on above:Result Comment: Electronically Signed By: MIRI MAX\.br\Date and Time Signed: 11/27/24 11:12 EDTED Clinical Summaryon [id number] Clinical SummaryED Clinical Summary [address] [address] ED Clinical Summary Person Information Name: YANETH DENNIS [facility] Age: 24 Years : 2000 Sex: Female Language: Mauritian PCP: CIERSEZWSKI TEST ENGINEER-C, MIRI Marital Status: Single Visit Id: Visit [...] 15:52:53 ADDRESS: [address] [place] [id number] PHYS DOC NOTES: MEDICAL INFORMATION: Prescriptions Given: New Medications [facility]/pharmacy #6173, [address] [place] [phone], [phone] acetaminophen-oxycodone (Percocet 5 mg-325 mg oral tablet) [...] In 3 days 11/27/2024 DIAGNOSIS: Back painNormalFisher Thomas [facility]. [facility] Patient Summaryon [id number] Patient SummaryED Patient Summary [place] [id number] Patient Discharge Instructions Person Information Name: YANETH DENNIS Age: 24 Years Arrival Date: 11/24/2024 14:35:58 Discharge Diagnosis: Back pain Primary Care Physician: MIRI MAX Provider Information Primary Provider: Blaze Bailey MD Advanced Irrigation Supervisor:Jermain Santana PA-C The exam and treatment you received in the Emergency Department were for an urgent problem and are not intended as complete care. It is important that you follow up with a doctor, nurse practitioner,or physician???s esl instructional assistant for ongoing care. If your symptoms [...] opioids can be used to help relieve eykvmspq-qn-nwzmln pain and are often prescribed following a [...] be struggling with addiction, tell your health multi care technician and askfor guidance or call [facility]A???S National Helpline at 2-702-829 (more content not included)...[facility] CenterXR Spine Thoracic 3 Viewson [id number] Spine Thoracic 3 ViewsExam Date/Time: 11/24/2024 15:07 [...] Danyel Costa MD Transcribed by: MESERET Technologist: ShaMarymount HospitalBH Video Visit - Telehealthon [id number] Video Visit - TelehealthBH Video Visit - [...] unspecified type) Ordered: Telehealth Interactive Complexity (Add-on) 91579 Telehealth Interactive Complexity (Add-on) 20642 TELEHEALTH Psychotherapy, 30 Mins 50929 TELEHEALTH Psychotherapy, 30 Mins 09752 2. Complex posttraumatic stress disorder (F43.10: Post-traumatic stress disorder, unspecified) Ordered: Telehealth Interactive Complexity (Add-on) 87348 Telehealth Interactive Complexity (Add-on) 50444 TELEHEALTH Psychotherapy, 30 Mins 05495 TELEHEALTH Psychotherapy, 30 Mins 06746 Psychotherapy Summary Client and Clinician come together [...] ex-boyfriend, whom left and went back to [place] once Yaneth put boundaries down. Left without [...] Use:., 10/29/2024 Family History Family history is negativeAshtabula County Medical CenterComment on above: Result Comment: Electronically Signed By: Jacey Colvin.jennifer\Date and Time Signed: 11/23/24 17:09 [facility] Medicine Office/Clinic Noteon 18-74-2010Vxrwsg Medicine Office/Clinic NoteFahouse of the good samaritan Medicine Office/Clinic Note Chief Complaint Adderall f/u [...] initial encounter) referral to neuro - dr flroian 2. Scoliosis (M41.9: Scoliosis, unspecified) see 1 [...] Weight Dosing Neuropathy (G62.9: Polyneuropathy, unspecified) Ordered: [facility] External Ambulatory Referral Orders: fluocinolone topical, 1 john, Topical, Daily, 60 gram, Refill(s) 1, apply small amount to warts daily and cover with dry dressing., [facility]/pharmacy #6173, 172, cm, 09/24/24 8:39:00 EST, Height/Length [...] vaccine, inactivated 02/10/2006 (more content not included)...Normal [facility] CenterComment on above:Result Comment: Electronically Signed By: MIRI MAX\.br\Date and Time Signed: 10/29/24 14:35 [facility] Video Visit - Telehealthon [id number] Video Visit - Telehealth Video Visit - Telehealth Start Time 3:10 pm Stop Time 3:55 pm Chief Complaint Comes in for Mental Health and Well-Being; Is being seen for Tbpx-Dupteh-Bvktkq this visit focus areas were on - [...] back on track. May be going to [place] for a week to go visit family. Please see note below... CSSRS Risk Assessment Currently not homicidal and or suicidal at this time. Mental Status Exam Alert and Oriented x4 Diagnosis/Assessment/Treatment Plan 1. ADHD (F90.9: Attention-deficit hyperactivity disorder, unspecified type) Ordered: Telehealth Interactive Complexity (Add-on) 58235 Telehealth Interactive Complexity (Add-on) 43550 TELEHEALTH Psychotherapy, 45 Mins (E&M Add-on) 50347 TELEHEALTH Psychotherapy, 45 Mins (E&M Add-on) 29140 2. Complex posttraumatic stress disorder (F43.10: Post-traumatic stress disorder, unspecified) Ordered: Telehealth Interactive Complexity (Add-on) 90144 Telehealth Interactive Complexity (Add-on) 93840 TELEHEALTH Psychotherapy, 45 Mins (E&M Add-on) 30501 TELEHEALTH Psychotherapy, 45 Mins (E&M Add-on) 33682 3. Encounter for family education about Adverse Childhood Experience questionnaire score (Z71.89: Other specified counseling) Ordered: Telehealth Interactive Complexity (Add-on) 74322 Telehealth Interactive Complexity (Add-on) 04978 TELEHEALTH Psychotherapy, 45 Mins (E&M Add-on) 58315 TELEHEALTH Psychotherapy, 45 Mins (E&M Add-on) 62282 Psychotherapy Summary Client and Clinician come together [...] Use:., 09/24/2024 Family History Family history is negativeAshtabula County Medical CenterComment on above: Result Comment: Electronically Signed By: Jacey Colvin.jennifer\Date and Time Signed: 10/06/24 16:00 [facility] Video Visit - Telehealthon [id number] Video Visit - [facility] Video Visit - Telehealth Start Time [...] unspecified type) Ordered: Telehealth Interactive Complexity (Add-on) 79578 Telehealth Interactive Complexity (Add-on) 36434 TELEHEALTH Psychotherapy, 45 Mins (E&M Add-on) 65488 TELEHEALTH Psychotherapy, 45 Mins (E&M Add-on) 49948 2. Complex posttraumatic stress disorder (F43.10: Post-traumatic stress disorder, unspecified) Ordered: Telehealth Interactive Complexity (Add-on) 30332 Telehealth Interactive Complexity (Add-on) 71456 TELEHEALTH Psychotherapy, 45 Mins (E&M Add-on) 84849 TELEHEALTH Psychotherapy, 45 Mins (E&M Add-on) 07387 3. Relationship dysfunction (Z63.9: Problem related to primary support group, unspecified) Ordered: Telehealth Interactive Complexity (Add-on) 59146 Telehealth Interactive Complexity (Add-on) 88408 TELEHEALTH Psychotherapy, 45 Mins (E&M Add-on) 07297 TELEHEALTH Psychotherapy, 45 Mins (E&M Add-on) 53244 4. History of adverse childhood experiences (Z62.9: Problem related to upbringing, unspecified) Ordered: Telehealth Interactive Complexity (Add-on) 36505 Telehealth Interactive Complexity (Add-on) 39093 TELEHEALTH Psychotherapy, 45 Mins (E&M Add-on) 12005 TELEHEALTH Psychotherapy, 45 Mins (E&M Add-on) 77442 5. Encounter for family education about Adverse Childhood Experience questionnaire score (Z71.89: Other specified counseling) Ordered: Telehealth Interactive Complexity (Add-on) 05114 Telehealth Interactive Complexity (Add-on) 23956 TELEHEALTH Psychotherapy, 45 Mins (E&M Add-on) 69779 TELEHEALTH Psychotherapy, 45 Mins (E&M Add-on) 16267 Psychotherapy Summary Client and Clinician come together [...] education about Ad (more content not included)...Normal [facility] CenterComment on above:Result Comment: Electronically Signed By: Jacey Colvin\.br\Date and Time Signed: 09/26/24 08:59 EST Ambulatory Visit Summaryon 22-41-0037Oyeqybbgzo Visit SummaryAmbulatory Visit Summary YANETH DENNIS :2000 [...] 3:00 PM EST With: Jacey Colvin Where: [facility] Medications What How Much When Why Instructions New diazepam (Valium 10 mg Tab) 1 Tablets By Mouth Once as needed for for anxiety Claustrophobia Pickup at [facility]/pharmacy #6173 New imiquimod topical (imiquimod Top 5% Crm) 1 Application Topical At bedtime Warts Duration: 6 Weeks Refills: 1 Pickup at [facility]/pharmacy #6173 Changed amphetamine-dextroamphetamine (Adderall 10 mg oral tablet) 1 Tablets By Mouth 2 times a dayADHD Pickup at [facility]/pharmacy #6173 Unchanged escitalopram (escitalopram 10 mg Tab) [...] physician if questions or concerns Pharmacy Information [facility]/pharmacy #6173: [address] [place], [place] [phone] Medications and Immunizations Administered Not Given influenza [...] you for choosing us for your care. [facility] Medicine Office/Clinic Noteon 54-67-0420Iffmcu Medicine Office/Clinic NoteSaint Monica'S Home Medicine Office/Clinic Note Chief Complaint Medication f/u, [...] anxiety, # 1 tab(s), Refills(s) 0, Pharmacy: [facility]/pharmacy #6173, 172, cm, 09/24/24 8:39:00 EST, Height/Length [...] treatment: None., 08/10/2024 To (more content not included)...[facility] Medical CenterComment on above:Result Comment: Electronically Signed By: BECK MALAGON, MIRI\.br\Date and Time Signed: 09/24/24 09:32 ESTXR Hip Bilat 2 Views + Pelvis on [id number] Hip Bilat 2 Views + PelvisExam Date/Time: [...] Ka,r in mGy = . DAP = .[facility] Medicine Office/Clinic Noteon [id number] Medicine Office/Clinic NoteFami Medicine Office/Clinic Note Chief [...] 23 year old female who presents to [facility]. She has a history 2 back surgeries due to scoliosis. She had her most recent back surgery to fix the rods in her back in Jun 2023 at [facility]. She continues with bilateral leg numbness, [...] Oral, BID, 60 tab(s), Refill(s) 0, [facility]/pharmacy #[id number], 172.7, cm, 08/29/24 14:55:00 EST, Height/Length [...] Recorded DTaP, unspecified formulat (more content not included)...[facility] CenterComment on above:Result Comment: Electronically Signed By: MIRI MAX\.br\Date and Time Signed: 08/29/24 15:56 [facility] Video Visit - Telehealthon [id number] Video Visit - Telehealth Video Visit - [...] combined type) Ordered: Telehealth Interactive Complexity (Add-on) 94338 Telehealth Interactive Complexity (Add-on) 81514 TELEHEALTH Psychotherapy, 45 Mins (E&M Add-on) 12373 TELEHEALTH Psychotherapy, 45 Mins (E&M Add-on) 75894 2. Complex posttraumatic stress disorder (F43.10: Post-traumatic stress disorder, unspecified) Ordered: Telehealth Interactive Complexity (Add-on) 37267 Telehealth Interactive Complexity (Add-on) 23609 TELEHEALTH Psychotherapy, 45 Mins (E&M Add-on) 43490 TELEHEALTH Psychotherapy, 45 Mins (E&M Add-on) 18988 3. Insulin resistance (E88.819: Insulin resistance, unspecified) Ordered: Telehealth Interactive Complexity (Add-on) 54978 Telehealth Interactive Complexity (Add-on) 65863 TELEHEALTH Psychotherapy, 45 Mins (E&M Add-on) 44992 TELEHEALTH Psychotherapy, 45 Mins (E&M Add-on) 88695 Psychotherapy Summary Client and clinician come together [...] Use:., 08/10/2024 Family History Family history is negativeAshtabula County Medical CenterComment on above: Result Comment: Electronically Signed By: Jacey Colvin\.jennifer\Date and Time Signed: 08/17/24 11:59 ESTUS Pelvis Non-OB Completeon [id number] Pelvis Non- OB CompleteExam Date/Time: 03/14/2024 18:50 [...] MESERET Technologist: ODILON Technical Comments Transabdominal Ultrasound PerformedNormalMercy Health St. [facility] Medicine Office/Clinic Noteon 91-60-5215Crbawk Medicine Office/Clinic NoteChief Complaint Discuss ADHD HPI [...] times. She was seen for this at [facility] ED 02/12. CT Abd/pelvis Neg. Dx with [...] then recently had another back surgery at [facility] in 04/2023. 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 They did [...] rule out a (more content not included)...Normal [facility] CenterComment on above:Result Comment: Electronically Signed By: Bianka WOODS CNP\.br\Date and Time Signed: 03/13/24 07:55 EDT\.br\Electronically Co-Signed By: Marshal Arteaga\.br\Date and Time Co- Signed: 03/12/24 19:03 EDTAmbulatory Visit Summaryon [id number] Visit Summary CHAVEZ DENNISGONZALESGILBERT Leatha :2000 Visit [...] 2:00 PM EDT With: Jacey Colvin [facility] PM EDT With: Jacey Colvin Where: [facility] Education 80-37-5240Scsnbzu EducationGastroenterology Obesity, Adult Obesity is having too [...] food choices, such as grocery stores and [employer] markets. What are the signs or symptoms? [...] How much exercise you get. ? Take xdio-dgu-wcadcfx and prescription medicines only as told by [...] you have with yo (more content not included)...[facility] CenterC Urineon 02-15-2024 Bacteria identified Cx Nom (U)Microbiology PROCEDURE: Urine Culture [R1] SOURCE: U CleanCatch BODY SITE: COLLECTED DATE/TIME: 02/13/2024 13:10 EDT RECEIVED DATE/TIME: 02/13/2024 13:58 EDT START DATE/TIME: 02/13/2024 13:58 EDT FREE TEXT SOURCE: Jermain Santana PA-C, PA-C, Jermain FINAL REPORTS Final Report [] Verified Date/Time: 02/15/2024 10:31 EDT <10,000 cfu/ml Mixed skin contaminants Performing Locations R1: This test was performed at: [facility], [address] [place] [address], [address]- , , QjzcxzZbjlycMarymount HospitalComment on above:Performed By: #### [id number] ####[address] hCG Qualon 81-85-3159Qdkt HCG ( test) QlNegativeNormalUniversity Hospitals Geauga Medical CenterComment on above:Performed By: #### [id number] #### [facility] [address] [place], [place] [address]HNEkg 85-41-6708Xrrsx gap [Moles/Vol]11 mmol/LNormal6-16[facility] Medical CenterComment on above:Performed By: #### [id number] #### [facility] [address] [place], [place] [address]Ihghrsf [Mass/Vol]9.3 mg/dLNormal8.9-11.1FMemorial Health System Selby General HospitalComment on above:Performed By: #### [id number] #### [facility] [address] [place], [place] [address]Sizmrhlt [Moles/Vol]107 mmol/PCbdwdx097-660WbzznpUniversity Hospitals Geauga Medical CenterComment on above:Performed By: #### [id number] #### [facility] [address] [place], [place] [address]OP6 [Moles/Vol]24 mmol/SXxbyrf96-30GnwkdlUniversity Hospitals Geauga Medical Center Comment on above:Performed By: #### [id number] #### [facility] [address] [place], [place] [address]Zmtghmyssp [Mass/Vol]0.7 mg/dLNormal0.5-1.3FMemorial Health System Selby General HospitalComment on above:Performed By: #### [id number] #### [facility] [address] [place], [place] [address]Ceufdlk [Mass/Vol]95 mg/mZAvrbjw65-230EymjzcUniversity Hospitals Geauga Medical CenterComment on above:Performed By: #### [id number] #### [facility] [address] [place], [place] [address]Pyigwwxas [Moles/Vol]3.8 mmol/LNormal3.5-5.3FMemorial Health System Selby General HospitalComment on above:Performed By: #### [id number] #### [facility] [address] [place], [place] [address]Rddxvm [Moles/Vol]138 mmol/XVkfrzp401-952WpdzstUniversity Hospitals Geauga Medical CenterComment on above:Performed By: #### [id number] #### [facility] [address] [place] [address]Twpf nitrogen [Mass/Vol]7 mg/dLNormal5-21[facility] Medical CenterComment on above:Performed By: #### [id number] #### [facility] [address] [place] [address]Dijk nitrogen/Creatinine [Mass ratio]10 No FdybbSdrwyh06-55 [facility] Medical CenterComment on above:Performed By: #### [id number] #### [facility] [address] [place] [address]RRZ w/ Auto Diffon 56-96-6611Fcwaadzru/100 WBC (Bld)0.7 %Normal 0.0-2.0[facility] Medical CenterComment on above:Performed By: #### [id number] #### [facility] [address] [place] [address] 12[address]Ukluwpnyt/Leukocytes Auto (Bld) [Pure # fraction]0.1 E9/LNormal 0.0-0.2FMemorial Health System Selby General HospitalComment on above:Performed By: #### [id number] #### [facility] [address] [place] [address] 12[address]Yzuiosongpz (Bld) [#/Vol]0.1 E9/LNormal0.0-0.5FMemorial Health System Selby General HospitalComment on above:Performed By: #### [id number] #### [facility] [address] [place] [address] 80[address]Cxdsnbrceyj/100 WBC (Bld)1.8 %Normal0.0-8.0[facility] Medical CenterComment on above:Performed By: #### [id number] #### [facility] [address] [place] [address] 249[address]Gplijmbbots distribution width (RBC) [Ratio]13.6 %Normal 10.9-14.2FMemorial Health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 Electronically Signed By: Bianka [...] PM EST With: Bianka WOODS CNP [facility]OS[facility] STAND/LAT 2Von 15-61-7142Lqhefwhac Clinic Ambulatory Visit Summaryon 16-82-0766Wltzfoyudr Visit Summary YANETH DENNIS :2000 Visit Date:07/20/2023 [...] Clare Vazquez MD Where: [facility] CarenGeorgetown Behavioral HospitalFormson 16-97-4749Fpnzw [id number]#1.00TIFProtestant Deaconess HospitalOperative Reporton 67-03-4169Peietgfcn Report [id number]#1.00TIFProtestant Deaconess HospitalPatient Educationon 05-47-9883Rglxhgg EducationObstetrics and Gynecology Acute Urinary Retention, Female [...] these instructions at home: Medicines ? Take hkmr-nud-ybbhygl and prescription medicines only as told by [...] provider. Document Revised: 05/26/2021 Document Reviewed: 05/26/2021 [employer]ream [employer] Patient Education ? 2022 My Healthy World.[facility] Screenson [id number]#1.00TIFF [facility] Medical CenterUrology Office/Clinic Noteon 32-50-5245Eqnsqeo Office/Clinic NoteChief Complaint new patient HPI Staff [...] with voice recognition artificial intelligence software, specifically Zymergen, Skyview Records and or SageCloud. Substitutions may have occurred due to the inherent limitations of voice recognition and artificial intelligence software. 1. Urinary retention (R33.9: Retention of urine, unspecified) S/p exploration and revision of posterior spinal fusion T2-L3, hardware removal posterior spinal hardware, T2-L3, posterior spinal instrumentation, nonsegmental, T2-L3 at [facility] with Dr. Sumeet De La Cruz 07/11/23 -Dx w/ scoliosis Pt presented to [facility] ER 07/17/23 with bender catheter from surgery [...] PVR Patient Education Acute Urinary Retention, Female, Wjsp-tg-Skbk Uyen Au, personally scribed for Dr. Vazquez [...] tubes in ears. Medications (more content not included)...[facility] Comment on above:Result Comment: Electronically Signed By: Clare Vazquez MD\.br\Date and Time Signed: 07/20/23 10:01EDT\.br\Electronically Co-Signed By: Uyen Ugalde\.br\Date and Time Co-Signed: 07/20/23 09:35 EDT\.br\Electronically Co-Signed By: Uyen Ugalde\.br\Date and Time Co- Signed: 07/20/23 09:49 EDTAdmission Noteon 15-27-5468Ouklzcqeq Note [id number]#1.00TIFFNormalUniversity Hospitals Geauga Medical CenterAuto Diffon 38-28-1361Cucxetqdm/100 WBC (Bld)0.4 %Normal0.0-2.0[facility] Medical CenterComment on above:Order Comment: Order Added by Discern Expert.Performed By: #### [id number], [id number], 3771661, [id number] ####[facility] [address] [place], [place] [address]Qoayqlocl/Leukocytes Auto (Bld) [Pure # fraction]0.0 E9/LNormal0.0-0.2FMemorial Health System Selby General Hospital Comment on above:Order Comment: Order Added by Discern Expert.Performed By: #### [id number], 2218055, 0973702, [id number] ####[facility] [address] [place], [place] [address]Vjaznpajdcc/100 WBC (Bld)2.9 %Normal 0.0-8.0[facility] Medical CenterComment on above:Order Comment: Order Added by Discern Expert.Performed By: #### [id number], 6561329, 0867939, [id number] ####[facility] [address] [place] [address] Eosinophils/Leukocytes Auto (Bld) [Pure # fraction]0.2 E9/LNormal0.0-0.5FMemorial Health System Selby General HospitalComment on above:Order Comment: Order Added by Discern Expert.Performed By: #### 3382906, 4426160, 5490055, [id number] ####[address] [address]Ulqnwuvhgzl/100 WBC (Bld)21.0 %Jbuwic62.0-50.0[facility] Medical CenterComment on above:Order Comment: Order Added by Discern Expert.Performed By: #### 3298529, 8459698, 5533451, 48776331 ####[address] [address]Wtiqpjgerxx/Leukocytes Auto (Bld) [Pure # fraction]1.7 E9/L Normal1.0-4.0[facility] Medical CenterComment on above:Order Comment: Order Added by Discern Expert.Performed By: #### 6189115, 4156084, 1416043, 84331486 ####Robert [address] [address] Monocytes/100 WBC (Bld)8.2 %Normal4.0-14.0[facility] Medical CenterComment on above:Order Comment: Order Added by Discern Expert.Performed By: #### 7329536, 4022366, 0392560, 35964876 ####[address] [address]Azeqjdzot/Leukocytes Auto (Bld) [Pure # fraction] 0.7 E9/LNormal0.2-1.0[facility] CenterComment on above:Order Comment: Order Added by Discern Expert.Performed By: #### 2171797, 7711878, 4100539, 59029023 ####[address] [address]Qznbednssgq/100 WBC (Bld)67.5 %Izgngt15.0-75.0[facility] Comment on above:Order Comment: Order Added by Discern Expert.Performed By: #### 3953679, 8517666, 6991225, 27252044 ####[address] [place], [place] [address]Nptihnvfpto/Leukocytes Auto (Bld) [Pure # fraction]5.6 E9/LNormal2.0-7.5FMemorial Health System Selby General HospitalComment on above:Order Comment: Order Added by Discern Expert.Performed By: #### 7177383, 1306991, 6855268, 48093869 ####[address] [address]UMRlp 76-61-5768Glthevksoy [Mass/Vol]0.6 mg/dL Normal0.5-1.3FMemorial Health System Selby General HospitalComment on above:Performed By: #### 0483195, 3796468, 2481971, 43923568 ####[address] [address]Ixoz nitrogen [Mass/Vol]6 mg/dLNormal 5-21[facility] Medical CenterComment on above:Performed By: #### 0054633, 2806652, 1551874, 42362684 ####[address] [address]Tqut nitrogen/Creatinine [Mass ratio]10 No Units Jidoxk90-79QvafbpUniversity Hospitals Geauga Medical CenterComment on above:Performed By: #### 6420608, 6443718, 5078904, 62283806 ####[address] [address]Nzpdm gap [Moles/Vol]8 mmol/LNormal 6-16[facility] Medical CenterComment on above:Performed By: #### 3436485, 9406068, 0828918, 53027940 ####[address] [address]Cfpekoc [Mass/Vol]8.8 mg/dLLow8.9-11.1FMemorial Health System Selby General HospitalComment on above:Performed By: #### 0551612, 1231632, 4553679, 94556086 ####[facility] [address] [place], [place] [address]Nnkriuaj [Moles/Vol]104 mmol/VRtakrx741-128TvwerkUniversity Hospitals Geauga Medical Center Comment on above:Performed By: #### 4429758, 0223148, 4902845, 55578460 ####[address] [place], [place] [address]YB8 [Moles/Vol]27 mmol/VKueonb04-97NdpnwaUniversity Hospitals Geauga Medical CenterComment on above: Performed By: #### 5497291, 6395484, 9163501, 78499791 ####[address] [place], [place] [address]Ewulwcc [Mass/Vol]118 mg/dL Vkvrcu30-749BojjcvUniversity Hospitals Geauga Medical CenterComment on above:Result Comment: If this glucose result represents a fasting glucose, interpretation should refer tothe following reference range: 55-99 mg/dLPerformed By: #### 6758576, 0606637, 8652467, 00158830 ####[address] [place], [place] [address]Bfgouujpq [Moles/Vol]3.1 mmol/LLow3.5-5.3FMemorial Health System Selby General HospitalComment on above:Performed By: #### 0490919, 7278230, 6721744, 99073200 ####[address] [address]Qvvity [Moles/Vol]136 mmol/GDuxhiv723-158WhwimvUniversity Hospitals Geauga Medical CenterComment on above:Performed By: #### 6788360, 9672181, 9712852, 96473879 ####[address] [place], [place] [address]XMD w/ Auto Diff on 25-26-7866Etstociwxrp distribution width (RBC) [Ratio]14.0 %Utfjrs79.9-14.2 [facility] Medical CenterComment on above:Performed By: #### 3315727, 5780740, 2999869, 40880910 ####[address] [place], [place] [address]Nbudmkdwmo (Bld) [Volume fraction]27.7 %Low34.0-46.0[facility] Medical CenterComment on above:Performed By: #### 7412073, 6755736, 9392634, 85339454 ####[address] [address]Pppaxnowcf (Bld) [Mass/Vol]9.2 g/dLLow12.0-16.0[facility] Medical CenterComment on above:Performed By: #### 2972428, 9128664, 7477013, 13196312 ####[address] [address]BGM (RBC) [Entitic mass]30.0 jxLriufp92.0-34.0[facility] Comment on above:Performed By: #### 9065560, 2773184, 7290873, 24336859 ####[address] [address]AIBG (RBC) [Mass/Vol]33.3 g/kKFjgrpp41.4-36.0[facility] Medical CenterComment on above:Performed By: #### 7063879, 6056360, 5141903, 12539050 ####[address] [address]FYC (RBC) [Entitic vol]90.1 dYOolgti70.0-100.0[facility] Medical CenterComment on above:Performed By: #### 6325346, 9540053, 8892695, 85210571 ####[address] [address]Fhkherhu mean volume (Bld) [Entitic vol]7.2 fLNormal6.4-10.8[facility] Medical CenterComment on above:Performed By: #### 5279353, 1381907, 6981077, 74304271 ####[address] [address]Lgqfcuwpa (Bld) [#/Vol]232.0 E9/L Gzbluq140.0-500.0[facility] Medical CenterComment on above:Performed By: #### 4905397, 6878626, 5032595, 15711644 ####[facility] [address] [place], [place] [address]NUI (Bld) [#/Vol]3.1 E12/LLow4.3-5.9 [facility] Medical CenterComment on above:Performed By: #### 3370217, 8767019, 6470661, 33360571 ####[facility] [address] [place], [place] [address]KKC corrected for nucl RBC Auto (Bld) [#/Vol]8.3 E9/LNormal 4.0-11.0[facility] Medical CenterComment on above:Performed By: #### 7616718, 8758579, 7904041, 01984586 ####[facility] [address] [place], [place] [address]XVKFPMHOAHoidkqs By: SYSTEM SYSTEM on 07-17-2023 Anion gap [Moles/Vol]8 mmol/LNormal6 - 16 mEq/LFTMC RemisolCalcium [Mass/Vol]8.8 mg/dLLow8.9 - 11.1 mg/dLMERCY [facility]ALTH [facility] RemisolChloride [Moles/Vol]104 mmol/MLnsgys965 - 111 mmol/LFTMC RemisolCO2 [Moles/Vol]27 mmol/UUwuwpe74 - 31 mmol/LFTMC Remisol Creatinine [Mass/Vol]0.6 mg/dLNormal0.5 - 1.3 mg/dLMERCY HEALTH [facility] RemisolGFR/1.73 sq M.predicted among non-blacks MDRD (S/P/Bld) [Vol rate/Area]130 mL/min/1.73 m2 Normal>=59mL/min/1.73 m2[facility] Chem SComment on above:Interpretive Data: Chronic kidney disease could be indicated at eGFR's of less than 60 mL/min/1.73m2. Kidney failure is indicated at less than 15 mL/min/1.73m2.Glucose [Mass/Vol]118 mg/lJEjsskn02 - 199 mg/dLMERCY HEALTH [facility] RemisolComment on above:Interpretive Data: If this glucose result represents a fasting glucose, interpretation should referto the following reference range: 55-99 mg/dLPotassium [Moles/Vol]3.1 mmol/LLow3.5 - 5.3 mmol/LFTMC RemisolSodium [Moles/Vol]136 mmol/WDuthsk123 - 145 mmol/LFTMC RemisolUrea nitrogen [Mass/Vol]6 mg/dLNormal5 - 21 mg/dLMERCY [facility]ALTH [facility] RemisolUrea nitrogen/Creatinine [Mass ratio]10 mg/ddPquwuj81 - 20[facility] RemisolConsent for Treatmenton 53-47-5857Vpioqqv for Treatment [id number]#1.00[facility] AkronDischarge Instructionson 44-50-1744Nllhlvgbc Instructions [id number]#1.00[facility] Clinical Summaryon 28-55-0858FV Clinical Summary [id number] ED Clinical Summary Person Information Name: YANETH DENINS [facility] Age: 22 Years : 2000 Sex: Female Language: Mauritian PCP: Bianka WOODS CNP Marital Status: Single Phone: [phone] Visit Id: Visit Reason: Medical problem - [...] 07/17/2023 16:12:29 ADDRESS: [address] [facility] [id number] PHYS DOC NOTES: MEDICAL INFORMATION: Prescriptions Given: New Medications [facility]/pharmacy #6173, [address] [place], [place] [id number], [phone] lorazepam (Ativan 1 mg Tab) 1 Tablets By Mouth 3 times a day for 3 Days. Refills: 0. Medications to Continue Taking That Have Changed [facility]/pharmacy #6173, [address] [place], [place] [id number], [phone] START: escitalopram (Lexapro 20 mg Tab) 1 [...] With: Address: When: Bianka WOODS [address] [place] [address] Business (1) In 3 days 07/20/2023 DIAGNOSIS: Anxiety; Chills; HypokalemiaNormalFisher Lares Medical CenterED Note-Physicianon 86-32-2175MB Note-PhysicianBasic Information Time Seen: Ilya Patel DO 07/17/2023 13:43 Chief Complaint Pt reports back surgery on @ [facility] for scoliosis. Pt presents with bender [...] Daily, # 30 tab(s), Refills(s) 0, Pharmacy: [facility]/pharmacy #6173, 172.7, cm, 07/17/23 13:52:00 EDT, Height/Length Dosing, 95.5, kg, 07/17/23 13:52:00 EDT, Weight Dosing lorazepam, 1 mg = 1 tab(s), Oral, TID, X 3 day(s), # 9 tab(s), Refills(s) 0, Pharmacy: [facility]/pharmacy#6173, 172.7, cm, 07/17/23 13:52:00 EDT, Height/Length Dosing, [...] In 3 days 07/20/2023 EDT [address] [place] [address]- Business (1) Additional Instructions: Patient Education Hypokalemia Generalized Anxiety Disord (more content not included)...[facility] CenterComment on above:Result Comment: Electronically Signed By: Max RAMOS, Jermain\.br\Date and Time Signed: 07/17/2316:06 EDT\.br\Electronically Co-Signed By: Ilya Patel DO\.br\Date and Time Co- Signed: 07/17/23 18:38 EDTED Patient Education Noteon [id number] Patient Education NoteGastroenterology Hypokalemia Hypokalemia means that [...] such as yogurt. General instructions ? Take ovhw-gfm-lcnozeo and prescription medicines only as told by [...] provider. Document Revised: 05/19/2022 Document Reviewed: 05/19/2022 [employer] Patient Education ? 2022 [employer] Mental and Behavioral Health Generalized Anxiety Disorder, Adult Generalized anxiety disorder (TAYLA) is a mental health condition. Unlike normal worries, anxiety related to TAYLA is not triggered by a specific event. These worries do not fade or get better with time.ATYLA interferes with relationships, work, and school. TAYLA [...] with TAYLA often wor (more content not included)...[facility] Patient Summaryon [id number] Patient Summary [address] [address] Patient Discharge Instructions Person Information Name: YANETH DENNIS Age: 22 Years Arrival Date: 07/17/2023 13:35:03 Discharge Diagnosis: Anxiety; Chills; Hypokalemia Primary Care Physician: Bianka WOODS CNP Provider Information Primary Provider: Ilya Patel DO Advanced Irrigation Supervisor:Jermain Santana PA-C The exam and treatment you received in the Emergency Department were for an urgent problem and are not intended as complete care. It is important that you follow up with a doctor, nurse practitioner,or physician?s esl instructional assistant for ongoing care. If your symptoms [...] Instructions: With: Address: When: Bianka WOODS [address] [place] [address] Business (1) In 3 days 07/20/2023 In the event that this physician does not participate in your insurance network, please consult with your insurance company to find a nearby participating provider. Patient Education Materials: Hypokalemia; Generalized Anxiety Disorder, Adult A MESSAGE TO ALL PATIENTS REGARDING OPIOIDS PRESCRIPTION OPIOIDS: WHAT YOU NEED TO KNOW Prescription opioids can be used to help relieve nymvvtby-lz-ydidvj pain and are often prescribed following a [...] your community drug take- back program or yourQ-Bot mail-back program, or flush them down the toilet, following guidance from the Food and Drug Administration (www.fda.gov/Drugs/ResourcesForYou). ? Visit www.cdc.gov/drugoverdose to learn about the risks of opioids abuse and overdose. ? If you believe you may be struggling with addiction, tell your health multi care technician and ask for guidance or call [facility]?S National Helpline at 1-218 (more content not included)...[facility] CenterHEMATOLOGYOrdered By: SYSTEM SYSTEM on 12-56-6231Vhnyluxnx/100 WBC (Bld)0.4 %Normal0.0 - 2.0 %[facility] HemeAutoSSBasophils/Leukocytes Auto (Bld) [Pure # fraction]0.0 E9/LNormal0.0 - 0.2 E9/LFTMC HemeAutoSSEosinophils/100 WBC (Bld)2.9 %Normal0.0 - 8.0 %[facility] HemeAutoSSEosinophils/Leukocytes Auto (Bld) [Pure # fraction]0.2 E9/LNormal0.0 - 0.5 E9/LFTMC HemeAutoSSLymphocytes/100 WBC (Bld)21.0 %Snyrvq73.0 - 50.0 %FT HemeAutoSSLymphocytes/Leukocytes Auto (Bld) [Pure # fraction]1.7 E9/LNormal1.0 - 4.0 E9/LFTMC HemeAutoSSMonocytes/100 WBC (Bld)8.2 %Normal4.0 - 14.0 %FT HemeAutoSSMonocytes/Leukocytes Auto (Bld) [Pure # fraction]0.7 E9/LNormal0.2 - 1.0 E9/LFTMC HemeAutoSSNeutrophils/100 WBC (Bld)67.5 %Bqcbrt89.0 - 75.0 %FT HemeAutoSSNeutrophils/Leukocytes Auto (Bld) [Pure # fraction]5.6 E9/LNormal2.0 - 7.5 E9/LFTMC HemeAutoSSHEMATOLOGYOrdered By: Samantha Polo on 07-17-2023 Erythrocyte distribution width (RBC) [Ratio]14.0 %Hgjeel01.9 - 14.2 %[facility] HemeAutoSSHematocrit (Bld) [Volume fraction]27.7 %Low34.0 - 46.0 %[facility] HemeAutoSSHemoglobin (Bld) [Mass/Vol]9.2 g/dLLow12.0 - 16.0 gm/dLFTMC HemeAutoSS MCH (RBC) [Entitic mass]30.0 wgEqmrue23.0 - 34.0 pgFTMC HemeAutoSSMCHC (RBC) [Mass/Vol]33.3 g/kAEajjwq29.4 - 36.0 gm/dLFTMC HemeAutoSSMCV (RBC) [Entitic vol] 90.1 zJInabvn69.0 - 100.0 fLFTMC HemeAutoSSPlatelet mean volume (Bld) [Entitic vol]7.2 fLNormal6.4 - 10.8 fLFTMC HemeAutoSSPlatelets (Bld) [#/Vol]232.0 E9/L Ravfsq270.0 - 500.0 E9/LFTMC HemeAutoSSRBC (Bld) [#/Vol]3.1 E12/LLow4.3 - 5.9 E12/LFTMC HemeAutoSSWBC corrected for nucl RBC Auto (Bld) [#/Vol]8.3 E9/LNormal 4.0 - 11.0 E9/LF[facility] HemeAutoSSUA With Cult Reflexon 03-05-1594Knduqjtjf Ql (U) NegativeNormalNegativeUniversity Hospitals Geauga Medical CenterComment on above:Performed By: #### [id number] ####Jakob [facility] [address] [place], [place] [address]Tmetbis (U)CLEARNormalClearUniversity Hospitals Geauga Medical CenterComment on above: Performed By: #### [id number] ####Jakob [facility] [address] [place], [place] [address]Bvrkh (U)YELLOWNormalYellowUniversity Hospitals Geauga Medical CenterComment on above:Performed By: #### [id number] ####[id number] [place], [place] [address]Ejhqyujhwf cells.squamous LM.HPF (Urine sed) [#/Area]5-9Epufrl9-5Xhwnsg [facility] CenterComment on above:Performed By: #### [id number] ####Robert [address] [address]Crhjbpj Test strip (U) [Mass/Vol]NegativeNormal NegativeUniversity Hospitals Geauga Medical CenterComment on above:Performed By: #### [id number] ####[address] [address] Hemoglobin Ql (U)3+AbnormalNegativeUniversity Hospitals Geauga Medical CenterComment on above: Performed By: #### [id number] ####[address] [address]Tbycqcz (U) [Mass/Vol]NegativeNormalNegativeUniversity Hospitals Geauga Medical CenterComment on above:Performed By: #### [id number] ####[address] [address] Elias-Fela Solis.plasma/Elias-Fela Solis.RBC (Bld) [Mass ratio]4-0Bllnsm4-3Yjncjq [facility] CenterComment on above:Performed By: #### [id number] ####[address] [address]Xcvyidd Ql (U)NegativeNormal NegativeUniversity Hospitals Geauga Medical CenterComment on above:Performed By: #### [id number] ####[address] [address]wG (U)5.5 [pH]Invalid Interpretation Code5.0-9.0University [facility]als Geauga Medical CenterComment on above:Performed By: #### [id number] ####[address] [address]Lheihcm (U) [Mass/Vol]TRACEAbnormal NegativeUniversity Hospitals Geauga Medical CenterComment on above:Performed By: #### [id number] ####Jakob [address] [address] Specific gravity (U) [Rel density]<=1.005Invalid Interpretation Code1.005-1.030 [facility] Geauga Medical CenterComment on above:Performed By: #### [id number] ####Robert [address] [address]Nhgx of Urine collection methodFoleyAshtabula County Medical CenterComment on above:Performed By: #### [id number] ####[address] [address]Twmradgejcca Qn (U)0.2 {Jakob'U}/dLNormal0.0-1.0 [facility] Geaug[facility] Medical CenterComment on above:Performed By: #### [id number] ####[address] [address]GAO Auto Ql (U)TRACEAbnormalNegativeUniversity Hospitals Geauga Medical CenterComment on above: Performed By: #### [id number] ####[address] [address]CQH LM.HPF (Urine sed) [#/Area]1-3Nsopdf9-6XcltbdMemorial Health System Selby General HospitalComment on above:Performed By: #### [id number] ####[address] [address]Rmvgt LM Ql (Urine sed)TRACENormalUniversity Hospitals Geauga Medical CenterComment on above:Performed By: #### [id number] ####[address] [address]GMUTWDUYMQZdzzabe By: Kailyn Loyola on 01-94-4225Clyxunrfx Ql (U) Negative (07/17/23 2:59 PM)NormalNegativeFTMC UA Auto SSClarity (U)Clear (07/17/23 2:59 PM)NormalClearFTMC UA Auto SSColor (U)Yellow (07/17/23 2:59 PM)NormalYellowMERCY [facility]ALTH [facility] UA Auto SSEpithelial cells.squamous LM.HPF (Urine sed) [#/Area]0-2 /HPFNormal0-2/HPFMERCY HEALTH [facility] UA Auto SSGlucose Test strip (U) [Mass/Vol]Negative (07/17/23 2:59 PM)NormalNegativeMER[facility]ALTH [facility] UA Auto SSHemoglobin Ql (U)3+ *ABN* (07/17/23 2:59 PM)Invalid Interpretation CodeNegativeMER[facility]ALTH [facility] UA Auto SSKetones (U) [Mass/Vol]Negative (07/17/23 2:59 PM)NormalNegativeMER[facility]ALTH [facility] UA Auto SSLithium.plasma/Elias-Fela Solis.RBC (Bld) [Mass ratio]0-3 /HPFNormal0-3/HPFMERCY HEALTH [facility] UA Auto SSNitrite Ql (U)Negative (07/17/23 2:59 PM)NormalNegativeMER[facility]ALTH [facility] UA Auto SSpH (U)5.5 *NA* (07/17/23 2:59 PM)Invalid Interpretation Code5.0 - 9.0[facility] UA Auto SSProtein (U) [Mass/Vol]Trace *ABN* (07/17/23 2:59 PM)Invalid Interpretation CodeNegativeMERCY [facility]ALTH [facility] UA Auto SSSpecific gravity (U) [Rel density]<=1.005 *NA* (07/17/23 2:59 PM)Invalid Interpretation Code1.005 - 1.030[facility] UA Auto SSUA Spec DescFoley (07/17/23 2:59 PM)NormalMERCY HEALTH [facility] UA Auto SSUrobilinogen Qn (U)0.8290064 {Jakob'U}/dLNormal0.0 - 1.0 EU/dLFT UA Auto SSWBC Auto Ql (U)Trace *ABN* (07/17/23 2:59 PM)Invalid Interpretation CodeNegativeMER[facility] UA Auto SSWBC LM.HPF (Urine sed) [#/Area]0-5 /HPFNormal0-5/HPFMERCY HEALTH [facility] UA Auto SSYeast LM Ql (Urine sed) Trace (07/17/23 2:59 PM)NormalMERCY HEALTH LOVE COUNTY [facility] UA Auto SSeGFRon 38-88-3221SRG/1.73 sq M.predicted among non-blacks MDRD (S/P/Bld) [Vol rate/Area]130 mL/min/1.73 m2Dynebf>=59 [facility] Geauga Medical CenterComment on above:Order Comment: Order added by Discern Expert.Result Comment: Chronic kidney disease could be indicated at eGFR's of less than 60 mL/min/1.73m2. Kidney failure is indicated at less than 15 mL/min/1.73m2.Performed By: #### [id number], [id number], [id number], [id number] ####[facility] [address] [place] [address] Admission Noteon 79-05-9635Ayepbykgi Note [id number]#1.00TIFFAshtabula County Medical CenterInsurance Correspondenceon 46-78-0562Kiexqegkd Correspondence [id number]#1.00TIFFAshtabula County Medical CenterFormson [id number]#1.00TIFF [facility] Medical CenterConsultation Noteon 31-56-4109Rvqsfvyuaisw Note [id number]#1.00CD:127NoMarymount HospitalFahouse of the good samaritan Medicine Office/Clinic Noteon 35-78-1581Rprsls Medicine Office/Clinic NoteChief Complaint Abd pain HPI [...] leg did not move. She goes to [facility] for the back. The patient states [...] decreased. Her menstrual cycles are irregular. Her event producer states that they have a familial history [...] no records from the current work-up at [facility]. She is going to take the disability [...] with voice recognition artificial intelligence software, specifically [employer], [employer] and or [employer]. Substitutions may have occurred due to the inherent limitations of voice recognition and artificial intelligence software. Documentation services were performed after patient or guardian consented to allow [email or web address] to record this visit. MAYRA product marketing specialist and provider reviewed before signing. MAYRA: Carly Hernández Follow-up No qualifying data available Problem List/Past Medical History Ongoing Anxiety disorder due to medical condition Asthma Back pain with history of spinal surgery Insulin resistance Moderate major depression Rebound tenderness RLQ abdominal pain Wart Historical Ear infections Pregnan (more content not included)...[facility] County Medical CenterComment on above:Result Comment: Electronically Signed By: Bianka WOODS CNP\.br\Date and Time Signed: 06/21/23 09:47 EDT\.br\Electronically Co-Signed By: Carly Hernández\.br\Date and Time Co-Signed: 06/20/23 18:[address] - [address] Reporton 54-22-6599ZGV - CT [id number]#1.00CD:127 [facility] Medical CenterRAD - MISCon 59-11-9589HMM - MISC [id number]#1.00CD:127[facility] Medical CenterRAD - [id number]#1.00CD:127[facility] Medical CenterComment on above:Other Comment: INCOMPLETE SCAN.NDWRAD - MRI Reporton 92-69-3710ZCA - MRI Report [id number]#1.00CD:127[facility] County Medical CenterAmbulatory Visit Summaryon 94-32-8237Ebleazudtu Visit Summary YANETH DENNIS :2000 Visit Date:06/20/2023 [...] RLQ abdominal pain, No, No, RLQ abdominal painNormalDiley Ridge Medical Center LUMBAR SPINE WO IVCONon 79-40-7603Wqmsdokua [facility] Lumbar spine WO contraston 05-24-2023* * *Final [...] are within normal limits. DIVISION OF RADIOLOGYProvider, [facility] [place] - 05/24/2023 * * *Final Report* * [...] and assume there are 5 lumbar-type vertebrae. [facility] Transcribe Date/Time: May 24 2023 10:49A Dictated by : SONI THOMAS MD This examination was interpreted and the report reviewed and electronically signed by: SONI THOMAS MD on May 24 2023 10:57AM EST [facility] CenterRadiology Study observation (narrative)[facility] Lumbar spine WO contrastOrdered By: Ccf Provider on 09-86-4475Ipmarylpr ClinicTransfer Inon 48-39-8935Dfwoxcvr [id number]#1.00CD:127 NormalFisher [facility] CenterXR SCOLIOSIS PA STAND/LAT 2Von 04-24-2023 [facility] for Release of Medical Recordson 36-99-9272Blme for Release of Medical [id number]#1.00CD:127Normal Jakob [facility] CenterFahouse of the good samaritan Medicine Office/Clinic Noteon 09-59-6927Wzhakg Medicine Office/Clinic NoteChief Complaint Est Care HPI [...] inhalers. The referral for neurosurgery went to [facility]. She states that she has MyChart but her referral has not been set up through [facility]. Her surgery was done at [facility] when she was 17 years [...] with voice recognition artificial intelligence software, specifically [employer]mer[employer], [employer] and or SageCloud. Substitutions may have occurred with voice recognition and artificial intelligence software. ATTESTATION: Documentation servi (more content not included)...[facility] County Medical CenterComment on above:Result Comment: Electronically Signed By: Bianka WOODS CNP\.br\Date and Time Signed: 04/12/23 12:12 EDT\.br\Electronically Co- Signed By: José Bertrand\.br\Date and Time Co-Signed: 04/12/23 11:34 EDT Ambulatory Visit Summaryon 03-36-0212Tdqyyvfsqj Visit Summary YANETH DENNIS :2000 Visit Date:04/11/2023 [...] PM EDT With: Bianka WOODS CNP Where[facility] HospitalPatient Educationon 46-51-1549Bzuubvn EducationGastroenterology Obesity, Adult Obesity is having too [...] food choices, such as grocery stores and [email or web address]. What are the signs or symptoms? The [...] How much exercise you get. ? Take gexe-bgo-opweqwg and prescription medicines only as told by [...] you have with yo (more content not included)...[facility] County Medical CenterCHEMISTRYOrdered By: SYSTEM SYSTEM on 18-29-3650Qbzclih [Mass/Vol]4.3 g/dLNormal3.3 - 5.0 gm/dLFTMC RemisolAlbumin/Globulin [Mass ratio]1.2 {ratio}Normal1.1 - 2.2FT[facility] RemisolALP [Catalytic activity/Vol]64 [iU]/wZfwyxq15 - 98 Int._Unit/LFTMC RemisolALT No additional P-5'-P [Catalytic activity/Vol]17 [iU]/dNormal6 - 46 Int._Unit/LFTMC RemisolAnion gap [Moles/Vol]11 mmol/LNormal6 - 16 mEq/LFTMC RemisolAST [Catalytic activity/Vol]18 [iU]/dNormal5 - 43 Int._Unit/LFTMC RemisolBilirubin [Mass/Vol]0.8 mg/dLNormal0.0 - 1.1 mg/dLFTMC RemisolCalcium [Mass/Vol]9.1 mg/dL Normal8.9 - 11.1 mg/dLFTMC RemisolChloride [Moles/Vol]106 mmol/NMupgiv271 - 111 mmol/LFTMC RemisolCholesterol [Mass/Vol]135 mg/hKQhxraa412 - 200 mg/dLFTMC RemisolCholesterol in HDL [Mass/Vol]52 mg/dLInvalid Interpretation CodeFTMC RemisolCholesterol in LDL [Mass/Vol]64 mg/dLNormal<=129mg/dLFTMC Remisol Cholesterol in VLDL [Mass/Vol]18 mg/dLNormal7 - 40 mg/dLFT RemisolCO2 [Moles/Vol]23 mmol/ZJszifh64 - 31 mmol/LFTMC RemisolCreatinine [Mass/Vol]0.7 mg/dLNormal0.5 - 1.3 mg/dLFTMC RemisolGFR/1.73 sq M.predicted among blacks MDRD (S/P/Bld) [Vol rate/Area]mL/min/1.73 s8Ygadsq>=59mL/min/1.73 m2FT Chem S GFR/1.73 sq M.predicted among non-blacks MDRD (S/P/Bld) [Vol rate/Area] mL/min/1.73 g3Whqdlj>=59mL/min/1.73 m2[facility] Chem SGlobulin (S) [Mass/Vol]3.5 g/dL Normal1.4 - 4.0 gm/dLFT RemisolGlucose [Mass/Vol]85 mg/rARisdbl94 - 199 mg/dL [facility] RemisolPotassium [Moles/Vol]3.5 mmol/LNormal3.5 - 5.3 mmol/LFTMC Remisol Protein [Mass/Vol]7.8 g/dLNormal6.0 - 7.8 gm/dLFT RemisolSodium [Moles/Vol]136 mmol/MGmocrt918 - 145 mmol/LFTMC RemisolTriglyceride [Mass/Vol]89 mg/dLNormal <=149mg/dLMERCY [facility]ALTH [facility] RemisolTSH Qn0.88 m[IU]/LNormal0.34 - 5.60 mcIU/mLFT Remisol Urea nitrogen [Mass/Vol]12 mg/dLNormal5 - 21 mg/dLFT RemisolUrea nitrogen/Creatinine [Mass ratio]17 mg/goXlhdnw05 - 20FTMC RemisolHEMATOLOGY Ordered By: SYSTEM SYSTEM on 97-12-4793Xytgmtlhb/100 WBC (Bld)0.7 %Normal0.0 - 2.0 %[facility] HemeAutoSSBasophils/Leukocytes Auto (Bld) [Pure # fraction]0.1 E9/L Normal0.0 - 0.2 E9/LFTMC HemeAutoSSEosinophils/100 WBC (Bld)1.0 %Normal0.0 - 8.0 %[facility] HemeAutoSSEosinophils/Leukocytes Auto (Bld) [Pure # fraction]0.1 E9/L Normal0.0 - 0.5 E9/LFTMC HemeAutoSSLymphocytes/100 WBC (Bld)28.3 %Uxavef61.0 - 50.0 %[facility] HemeAutoSSLymphocytes/Leukocytes Auto (Bld) [Pure # fraction]2.4 E9/L Normal1.0 - 4.0 E9/LFTMC HemeAutoSSMonocytes/100 WBC (Bld)6.8 %Normal4.0 - 14.0 %[facility] HemeAutoSSMonocytes/Leukocytes Auto (Bld) [Pure # fraction]0.6 E9/LNormal 0.2 - 1.0 E9/LFTMC HemeAutoSSNeutrophils/100 WBC (Bld)63.2 %Lvfqwo86.0 - 75.0 % [facility] HemeAutoSSNeutrophils/Leukocytes Auto (Bld) [Pure # fraction]5.4 E9/LNormal 2.0 - 7.5 E9/LFTMC HemeAutoSSHEMATOLOGYOrdered By: Willa Merrill on 10-10-2022 Erythrocyte distribution width (RBC) [Ratio]13.6 %Rsbslp07.9 - 14.2 %[facility] HemeAutoSSHematocrit (Bld) [Volume fraction]42.4 %Aqglur00.0 - 46.0 %[facility] HemeAutoSSHemoglobin (Bld) [Mass/Vol]13.7 g/yPLlnwrt12.0 - 16.0 gm/dLFTMC HemeAutoSSMCH (RBC) [Entitic mass]29.5 msHusznp48.0 - 34.0 pgFTMC HemeAutoSSMCHC (RBC) [Mass/Vol]32.4 g/fVXjrbyn93.4 - 36.0 gm/dLFTMC HemeAutoSSMCV (RBC) [Entitic vol]91.1 cFVptnaz17.0 - 100.0 fLFTMC HemeAutoSSPlatelet mean volume (Bld) [Entitic vol]8.8 fLNormal6.4 - 10.8 fLFTMC HemeAutoSSPlatelets (Bld) [#/Vol]245.0 E9/ANdugiv971.0 - 500.0 E9/LFTMC HemeAutoSSRBC (Bld) [#/Vol]4.7 E12/LNormal4.3 - 5.9 E12/LFTMC HemeAutoSSWBC corrected for nucl RBC Auto (Bld) [#/Vol]8.5 E9/LNormal4.0 - 11.0 E9/LFNOR[facility] HemeAutoSSCBC AUTO DIFFon 01-25-2022 BASO #0.1 103/ulNormal0.0-0.1The [facility] HospitalComment on above:Performed By: #### PT, PTT #### [facility] [address] [place] [address] Dr. Sage WilksBasophils/100 WBC (Bld)0.7 %Normal0.2-2.0The [facility] Comment on above:Performed By: #### PT, PTT #### [facility] [address] [place] [address] Dr. Sage Noonan #0.1 103/ulNormal0.0-0.7The [facility] HospitalComment on above: Performed By: #### PT, PTT #### [facility] [address] [place] [address] Dr. Sage Liuosinophils/100 WBC (Bld)0.9 %Normal0.9-7.0The [facility] Comment on above:Performed By: #### PT, PTT #### [facility] [address] [place] [address] Dr. Sage Liurythrocyte distribution width (RBC) [Ratio]13.7 %Fvekvr69.0-15.0 The [facility] HospitalComment on above:Performed By: #### PT, PTT #### [facility] [address] [place] [address] Dr. Sage WilksHematocrit (Bld) [Volume fraction]41.1 %Mhxkfv89.0-48.0The [facility] HospitalComment on above:Performed By: #### PT, PTT #### [facility] [address] [place] [address] Dr. Sage WilksHemoglobin (Bld) [Mass/Vol]13.1 g/nHPjtjtg13.0-16.0The [facility] HospitalComment on above:Performed By: #### PT, PTT #### [facility] [address] [place] [address] Dr. Sage Oquendo #0.02 10e3/ulNormal0.00-0.03The [facility] on above:Performed By: #### PT, PTT #### [facility] [address] [place] [address] Dr. Sage Oquendo %0.3 %Normal0.0-0.5The [facility] HospitalComascension genesys hospital on above: Performed By: #### PT, PTT #### [facility] [address] [place] [address] Dr. Sage Lanier #2.3 103/ulNormal1.2-3.8The [facility] HospitalComment on above:Performed By: #### PT, PTT #### [facility] [address] [place] [address] Dr. Sage Medeiroshocytes/100 WBC (Bld)29.3 %Hxhnmd73.5-60.0The [facility] on above:Performed By: #### PT, PTT #### [facility] [address] [place] [address] Dr. Sage MaurerUAL DIFF REQNONormalThe [facility] HospitalComascension genesys hospital on above: Performed By: #### PT, PTT #### [facility] [address] [place] [address] Dr. Sage Interiano (RBC) [Entitic mass]28.8 ksLeynja72.7-34.0The [facility] on above:Performed By: #### PT, PTT #### [facility] [address] [place] [address] Dr. Sage Interiano (RBC) [Mass/Vol]31.9 g/lIKzorfg53.9-35.2The [facility] on above:Performed By: #### PT, PTT #### [facility] [address] [place] [address] Dr. Sage Interiano (RBC) [Entitic vol]90.3 oDGqhrxq73.0-99.0The [facility] HospitalComment on above:Performed By: #### PT, PTT #### [facility] [address] [place] [address] Dr. Sage Kee #0.5 103/ulNormal0.3-0.8The [facility] HospitalComment on above:Performed By: #### PT, PTT #### [facility] [address] [place] [address] Dr. Sage Mcdonaldocytes/100 WBC (Bld)6.6 %Normal1.7-12.0The [facility] Comment on above:Performed By: #### PT, PTT #### [facility] [address] [place] [address] Dr. Sage Hill #4.8 103/ulNormal1.4-6.5The [facility] HospitalComment on above:Performed By: #### PT, PTT #### [facility] [address] [place] [address] Dr. Sage Guzmanutrophils/100 WBC (Bld)62.2 %Xwrnvh71.0-75.0The [facility] HospitalComment on above:Performed By: #### PT, PTT #### [facility] [address] [place] [address] Dr. Sage Myles mean volume (Bld) [Entitic vol]10.2 fLNormal9.5-13.5The [facility] HospitalComment on above:Performed By: #### PT, PTT #### [facility] [address] [place] [address] Dr. Sage WilksPLT239 103/seCutstw834-815Qhu [facility] HospitalComment on above: Performed By: #### PT, PTT #### [facility] [address] [place] [address] Dr. Sage WilksRBC4.55 106/ulNormal4.20-5.40The [facility] on above:Performed By: #### PT, PTT #### [facility] [address] [place] [address] Dr. Sage WilksWBC7.7 103/ulNormal4.0-11.0[facility] HospitalComment on above: Performed By: #### PT, PTT #### [facility] [address] [place] [address] Dr. Sage WilksPREJannette QUANT HCGon 81-17-7235RXD QUANT<1NormalOhio Valley Hospital Comment on above:Performed By: #### PREGQNT, TSH #### [facility] [address] [place] [address] Dr. Sage Forte RANGESHenry County HospitalComment on above: Result Comment: 5-50 0-1 WEEK 40-300 1-2 WEEKS 100-1,000 2-3 WEEKS 500-6,000 3-4 WEEKS 5,000-200,000 1-2 MONTHS 10,000-100,000 2-3 MONTHS 3,000-50,000 2ND TRIMESTER 1,000-50,000 3RD TRIMESTERPerformed By: #### PREGQNT, TSH #### [facility] [address] [place] [address] Dr. Sage WilksPROTIMEon 14-57-9746CRE Coag (PPP) [Relative time]0.96 {INR} NormalOhio Valley HospitalComment on above:Performed By: #### PT, PTT #### [facility] [address] [place] [address] Dr. Sage Castillo [facility]ITALE BELOWSt. Rita's HospitalComment on above:Result Comment: DESIRED INR: 2.0 - 3.0 CONDITIONS NOT LISTED BELOW 2.5 - 3.5 FOR PROSTHETIC HEART VALVE REPLACEMENT 2.5 - 3.5 RECURRENT THROMBOSIS Performed By: #### PT, PTT #### [facility] [address] [place] [address] Dr. Sage WilksPT Coag (PPP) [Time]10.4 sNormal9.0-11.6The [facility] Comment on above:Performed By: #### PT, PTT #### [facility] [address] [place] [address] Dr. Sage Akhtar [id number] Coag (Bld) [Time]27.6 jHwymfd59.3-36.2[place] [facility] HospitalComment on above:Performed By: #### PT, PTT #### [facility] [address] [place] [address] Dr. Sage Singh [id number] uIU/mLNormal0.358-3.740[place] [facility] HospitalComment on above:Performed By: #### PREGQNT, TSH #### [facility] [address] [place] [address] Dr. Sage Warren [facility] HospitalComment on above: Result Comment: <0.34 UIU/ml HYPERTHYROID 0.34-5.60 UIU/ml EUTHYROID >5.60 UIU/ml HYPOTHYROIDPerformed By: #### PREGQNT, TSH #### [facility] [address] [place] [address] Dr. Sage WilksRiya W MANUAL DIFFon [id number]d [facility] HospitalComment on above:Performed By: #### CBC #### [facility] [address] [place] [address] Miguel Ángel KarenATYPICAL LYMPH #NormalAultman Alliance [facility] on above: Performed By: #### CBC #### [facility] [address] [place] [address] Miguel Ángel KarenATYPICAL LYMPH %NormalOhio Valley HospitalComascension genesys hospital on above: Performed By: #### CBC #### [facility] [address] [place] [address] Miguel Ángel KarenBAND #0.3 103/ulNormal0.0-0.3The [facility] HospitalComasc[facility]ys hospital on above: Performed By: #### CBC #### [facility] [address] [place] [address] Miguel Ángel KarenBAND %2 %Normal0-5The [facility] HospitalComment on above:Performed By: #### CBC #### [facility] [address] [place] [address] Miguel Ángel KarenBASOM #0.00 103/ulNormal0.00-0.10The [facility] HospitalComment on above:Performed By: #### CBC #### [facility] [address] [place] [address] Miguel Ángel KarenBASOM %0.0 %Critically low0.2-2.0The [facility] HospitalComment on above:Performed By: #### CBC #### [facility] [address] [place] [address] Miguel Ángel KarenBLAST #NormalThe Leicester HospitalComment on above:Performed By: #### CBC #### [facility] [address] [place] [address] Miguel Ángel KarenBLAST %NormalOhio Valley HospitalComment on above:Performed By: #### CBC #### [facility] [address] [place] [address] Miguel Ángel KarenCORRECTED WBCNormal4.0-11.0[facility] Clinicment on above: Performed By: #### CBC #### [facility] [address] [place] [address] Miguel Ángel KarenEOS #0.42 103/ulNormal0.00-0.70The [facility] Limament on above:Performed By: #### CBC #### [facility] [address] [place] [address] Miguel Ángel KarenEOS%3.0 %Normal0.9-7.0[facility] on above: Performed By: #### CBC #### [facility] [address] [place] [address] Miguel Ángel KarenGIANT PLATELETSSEENNormalThe [facility] HospitalComment on above: Performed By: #### CBC #### [facility] [address] [place] [address] Miguel Ángel ZkshiXEI13.3 %Critically low36.0-48.0The [facility] on above:Performed By: #### CBC #### [facility] [address] [place] [address] Miguel Ángel PaqxmOZV45.5 g/dlCritically low12.0-16.0The [facility] HospitalComment on above:Performed By: #### CBC #### [facility] [address] [place] [address] Miguel Ángel KarenLYMPHM #3.06 103/ulNormal1.20-3.80The [facility] HospitalComment on above:Performed By: #### CBC #### [facility] [address] [place] [address] Miguel Ángel KarenLYMPHM%22.0 %Lerqnr17.5-60.0The [facility] HospitalComment on above: Performed By: #### CBC #### [facility] [address] [place] [address] Miguel Ángel HfmpfJOE25.2 xnRoffvc04.7-34.0The [facility] HospitalComment on above: Performed By: #### CBC #### [facility] [address] [place] [address] Miguel Ángel CuowrKVNZ25.6 g/dkTwdnqr43.9-35.2The [facility] HospitalComment on above: Performed By: #### CBC #### [facility] [address] [place] [address] Miguel Ángel RlhiiYBN17.6 pMWudwbq58.0-99.0The [facility] HospitalComment on above: Performed By: #### CBC #### [facility] [address] [place] [address] Miguel Ángel KarenMETAMYELOCYTE #NormalThe [facility] HospitalComment on above:Performed By: #### CBC #### [facility] [address] [place] [address] Miguel Ángel KarenMETAMYELOCYTE %NormalThe [facility] HospitalComment on above:Performed By: #### CBC #### [facility] [address] [place] [address] Miguel Ángel KarenMONOM#0.97 103/ulCritically high0.30-0.80The [facility] on above:Performed By: #### CBC #### [facility] [address] [place] [address] Miguel Ángel KarenMONOM%7.0 %Normal1.7-12.0The Don HospitalComment on above: Performed By: #### CBC #### [facility] [address] [address] Miguel Ángel KarenMPV9.8 fLNormal9.5-13.5The [facility] HospitalComment on above: Performed By: #### CBC #### [facility] [address] [place] [address] Miguel Ángel KarenMYELOCYTE #NormalThe [facility] HospitalComment on above:Performed By: #### CBC #### [facility] [address] [place] [address] Miguel Ángel KarenMYELOCYTE %NormalThe [facility] HospitalComment on above:Performed By: #### CBC #### [facility] [address] [place] [address] Miguel Ángel KarenNRBCNormalThe [facility] HospitalComment on above:Performed By: #### CBC #### [facility] [address] [place] [address] Miguel Ángel EsrhnWZA823 103/hbLwdppu997-976Xam [facility] HospitalComment on above: Performed By: #### CBC #### [facility] [address] [place] [address] Miguel Ángel KarenRBC3.94 106/ulCritically low4.20-5.40The [facility] HospitalComment on above:Performed By: #### CBC #### [facility] [address] [place] [address] Miguel Ángel NssdnJBU45.7 %Critically high11.0-15.0The [facility] HospitalComment on above:Performed By: #### CBC #### [facility] [address] [place] [address] Miguel Ángel KarenSEG #9.17 103/ulCritically high1.40-6.50The [facility] HospitalComment on above:Performed By: #### CBC #### [facility] [address] [place] [address] Miguel Ángel KarenSEG %66.0 %Deardu64.0-75.0The [facility] HospitalComment on above: Performed By: #### CBC #### [facility] [address] [place], [place] [address] Miguel Ángel WilsonenWBC13.9 103/ulCritically high4.0-11.0[facility] on above:Performed By: #### CBC #### [facility] [address] [place], [place] [address] Miguel Ángel WilsonenCT ABD/PELV W CONon [id number] ABD/PELV W CONEXAMINATION: CT ABD/PELV W CON [...] Electronically authenticated by: HUBER BARAKAT Date: 2021-04-15 07:[address] [place], [place] [address]PROF 14(COMP METB)on [id number] [Mass/Vol]2.2 g/dL Critically low3.5-5.0The [facility] on above:Performed By: #### PT, PTT #### [facility] [address] [address] [address] Sage WilksAlbumin/Globulin [Mass ratio]0.6 {ratio}NormalThe [facility] HospitalComascension genesys hospital on above:Performed By: #### PT, PTT #### [facility] [address] [address] [address] Sage Christy [Catalytic activity/Vol]122 U/CBrngis68-265Ypy [facility] on above:Performed By: #### PT, PTT #### [facility] [address] [address] [address] Sage Trinh [Catalytic activity/Vol]11 U/LNormal9-52The [facility] Comment on above:Performed By: #### PT, PTT #### [facility] [address] [place] [address] Dr. Sage Garcíaon gap [Moles/Vol]11.5 mmol/LNormalThe [facility] Comment on above:Performed By: #### PT, PTT #### [facility] [address] [address] [address] Sage WilksAST [Catalytic activity/Vol]14 U/TOnuqah01-42Vqy [facility] on above:Performed By: #### PT, PTT #### [facility] [address] [address] [address] Sage WilksBilirubin [Mass/Vol]0.1 mg/dLCritically low0.2-1.3The [facility] HospitalComment on above:Performed By: #### PT, PTT #### [facility] [address] [address] [address] Sage WilksCalcium [Mass/Vol]8.2 mg/dLCritically low8.4-10.2The [facility] on above:Performed By: #### PT, PTT #### [facility] [address] [address] [address] Sage WilksChloride [Moles/Vol]107 mmol/EPjxjfh98-673Vxb [facility] Comment on above:Performed By: #### PT, PTT #### [facility] [address] [address] [address] Sage WilksCO2 [Moles/Vol]24.3 mmol/VIcfdwp74.0-30.0The [facility] Comment on above:Performed By: #### PT, PTT #### [facility] [address] [address] [address] Sage WilksCreatinine [Mass/Vol]0.61 mg/dLNormal0.52-1.04The [facility] HospitalComment on above:Performed By: #### PT, PTT #### [facility] [address] [address] [address] Sage LiuGFR-AF VIETNAMESE>60Normal>=60The [facility] HospitalComment on above:Performed By: #### PT, PTT #### [facility] [address] [place] [address] Dr. Sage LiuGFR-NON AF VIETNAMESE>60Normal>=60The [facility] HospitalComment on above:Performed By: #### PT, PTT #### [facility] [address] [place] [address] Dr. Sage WilksGlobulin (S) [Mass/Vol]3.6 g/dLNormalThe [facility] HospitalComment on above:Performed By: #### PT, PTT #### [facility] [address] [address] [address] Sage WilksGlucose [Mass/Vol]91 mg/qJJdxuag45-596Yrs [facility] Comment on above:Performed By: #### PT, PTT #### [facility] [address] [address] [address] Sage WilksPotassium [Moles/Vol]3.8 mmol/LNormal3.4-5.0The [facility] Comment on above:Performed By: #### PT, PTT #### [facility] [address] [address] [address] Sage WilksProtein [Mass/Vol]5.8 g/dLCritically low6.1-8.2The [facility] HospitalComment on above:Performed By: #### PT, PTT #### [facility] [address] [place] [address] Dr. Sage WilksSodium [Moles/Vol]139 mmol/NDikjci829-642Lqh [facility] Comment on above:Performed By: #### PT, PTT #### [facility] [address] [place] [address] Dr. Sage WilksUrea nitrogen [Mass/Vol]12.0 mg/dLNormal7.0-17.0The [facility] HospitalComment on above:Performed By: #### PT, PTT #### [facility] [address] [place] [address] Dr. Sage WilksUrea nitrogen/Creatinine [Mass ratio]19.7 mg/mgNormalThe [facility] HospitalComment on above:Performed By: #### PT, PTT #### [facility] [address] [place] [address] Dr. Sage Alas QUANTon [id number] Plasma Reagin, QuantNon-Reactive NormalNonRea<1:1The [facility] HospitalComment on above:Performed By: #### PT, PTT #### [facility] [address] [place] [address] Dr. Sage WilksASYMPTOMATIC COVID-19 ANTIGENon [id number] StatementSEE BELOW NormalThe [facility] on above:Result Comment: This test has not [...] is revoked sooner.Performed By: #### CVDAGA #### [facility] [address] [place] [address] Miguel Ángel GarciaGvzhcSOYO-EiN-6 (COVID-19) RNA JENS+probe Ql (Unsp spec)NegativeNormal NEGATIVEThe [facility] HospitalComment on above:Result Comment: Negative results are presumptive. They do not preclude infection and should not be used as the sole basis for treatment decisions. Additional confirmatory testing by a molecular method should be considered.Performed By: #### CVDAGA #### [facility] [address] [place] [address] Miguel Ángel ColonBC AUTO DIFFon [id number] #0.1 103/ulNormal0.0-0.1The [facility] HospitalComment on above:Performed By: #### PT, PTT #### [facility] [address] [place] [address] Dr. Sage WilksBasophils/100 WBC (Bld)0.3 %Normal0.2-2.0The [facility] Comment on above:Performed By: #### PT, PTT #### [facility] [address] [place] [address] Dr. Sage Noonan #0.1 103/ulNormal0.0-0.7The [facility] HospitalComment on above: Performed By: #### PT, PTT #### [facility] [address] [place] [address] Dr. Sage Liuosinophils/100 WBC (Bld)0.7 %Critically low0.9-7.0The [facility] HospitalComment on above:Performed By: #### PT, PTT #### [facility] [address] [place] [address] Dr. Sage Liurythrocyte distribution width (RBC) [Ratio]15.5 %Critically high 11.0-15.0The [facility] HospitalComment on above:Performed By: #### PT, PTT #### [facility] [address] [place] [address] Dr. Sage WilksHematocrit (Bld) [Volume fraction]36.2 %Choghm27.0-48.0The [facility] HospitalComment on above:Performed By: #### PT, PTT #### [facility] [address] [place] [address] Dr. Sage WilksHemoglobin (Bld) [Mass/Vol]11.9 g/dLCritically low12.0-16.0The [facility] HospitalComment on above:Performed By: #### PT, PTT #### [facility] [address] [place] [address] Dr. Sage Oquendo #0.38 10e3/ulCritically high0.00-0.03The [facility] Comment on above:Performed By: #### PT, PTT #### [facility] [address] [place] [address] Dr. Sage Oquendo %2.2 %Critically high0.0-0.5The [facility] HospitalComment on above:Performed By: #### PT, PTT #### [facility] [address] [place] [address] Dr. Sage Lanier #2.7 103/ulNormal1.2-3.8The [facility] HospitalComment on above:Performed By: #### PT, PTT #### [facility] [address] [place] [address] Dr. Sage Medeiroshocytes/100 WBC (Bld)15.6 %Critically low20.5-60.0The [facility] HospitalComment on above:Performed By: #### PT, PTT #### [facility] [address] [place] [address] Dr. Sage MaurerUAL DIFF REQNONormalThe [facility] HospitalComment on above: Performed By: #### PT, PTT #### [facility] [address] [place] [address] Dr. Sage Dixon (RBC) [Entitic mass]29.1 evQvgpmu81.7-34.0The [facility] HospitalComment on above:Performed By: #### PT, PTT #### [facility] [address] [place] [address] Dr. Sage Interiano (RBC) [Mass/Vol]32.9 g/mSLyuddq58.9-35.2The [facility] HospitalComment on above:Performed By: #### PT, PTT #### [facility] [address] [place] [address] Dr. Sage Avila (RBC) [Entitic vol]88.5 qSXnnvmz06.0-99.0The [facility] HospitalComment on above:Performed By: #### PT, PTT #### [facility] [address] [place] [address] Dr. Sage Kee #1.2 103/ulCritically high0.3-0.8The [facility] Comment on above:Performed By: #### PT, PTT #### [facility] [address] [place] [address] Dr. Sage Mcdonaldocytes/100 WBC (Bld)7.1 %Normal1.7-12.0[facility] Comment on above:Performed By: #### PT, PTT #### [facility] [address] [place] [address] Dr. Sage Hill #12.9 103/ulCritically high1.4-6.5The [facility] Comment on above:Performed By: #### PT, PTT #### [facility] [address] [place] [address] Dr. Sage Guzmanutrophils/100 WBC (Bld)74.1 %Rcgzvt60.0-75.0The [facility] HospitalComment on above:Performed By: #### PT, PTT #### [facility] [address] [place] [address] Dr. Sage Lawrencelet mean volume (Bld) [Entitic vol]9.6 fLNormal9.5-13.5The [facility] HospitalComment on above:Performed By: #### PT, PTT #### [facility] [address] [place] [address] Dr. Sage WilksPLT178 103/zlDgwngh290-516Dqi [facility] HospitalComment on above: Performed By: #### PT, PTT #### [facility] [address] [address] [address] Sage WilksRBC4.09 106/ulCritically low4.20-5.40The [facility] on above:Performed By: #### PT, PTT #### [facility] [address] [address] [address] Sage WilksWBC17.4 103/ulCritically high4.0-11.0The [facility] HospitalComment on above:Performed By: #### PT, PTT #### [facility] [address] [address] [address] Sage MoyaSO #0.1 103/ulNormal0.0-0.1The [facility] on above:Performed By: #### CBC #### [facility] [address] [place] [address] Miguel Ángel KarenBasophils/100 WBC (Bld)0.3 %Normal0.2-2.0The [facility] Comment on above:Performed By: #### CBC #### [facility] [address] [place] [address] Miguel Ángel KarenEO #0.0 103/ulNormal0.0-0.7The [facility] on above: Performed By: #### CBC #### [facility] [address] [place] [address] Miguel Ángel KarenEosinophils/100 WBC (Bld)0.0 %Critically low0.9-7.0The [facility] on above:Performed By: #### CBC #### [facility] [address] [address] Miguel Ángel KarenErythrocyte distribution width (RBC) [Ratio]15.1 %Critically high 11.0-15.0The [facility] on above:Performed By: #### CBC #### [facility] [address] [place] [address] Miguel Ángel KarenHematocrit (Bld) [Volume fraction]36.3 %Njyotd09.0-48.0The [facility] on above:Performed By: #### CBC #### [facility] [address] [address] Miguel Ángel KarenHemoglobin (Bld) [Mass/Vol]11.7 g/dLCritically low12.0-16.0The [facility] HospitalComment on above:Performed By: #### CBC #### [facility] [address] [place] [address] Miguel Ángel KarenIG #0.41 10e3/ulCritically high0.00-0.03The [facility] HospitalComment on above:Performed By: #### CBC #### [facility] [address] [place] [address] Miguel Ángel KarenIG %1.7 %Critically high0.0-0.5The [facility] HospitalComment on above:Performed By: #### CBC #### [facility] [address] [place] [address] Miguel Ángel KarenLYMPH #1.5 103/ulNormal1.2-3.8The [facility] HospitalComment on above: Performed By: #### CBC #### [facility] [address] [place] [address] Miguel Ángel KarenLymphocytes/100 WBC (Bld)6.3 %Critically low20.5-60.0The [facility] HospitalComment on above:Performed By: #### CBC #### [facility] [address] [place] [address] Miguel Ángel KarenMANUAL DIFF REQNONormalThe [facility] HospitalComment on above: Performed By: #### CBC #### [facility] [address] [place] [address] Miguel Ángel KarenMCH (RBC) [Entitic mass]28.5 pyRptozn62.7-34.0The [facility] Comment on above:Performed By: #### CBC #### [facility] [address] [place] [address] Miguel Ángel KarenMCHC (RBC) [Mass/Vol]32.2 g/dCTxwbut39.9-35.2The [facility] Comment on above:Performed By: #### CBC #### [facility] [address] [address] Miguel Ángel KarenMCV (RBC) [Entitic vol]88.5 uZMhubar69.0-99.0The [facility] Comment on above:Performed By: #### CBC #### [facility] [address] [address] Miguel Ángel KarenMONO #1.7 103/ulCritically high0.3-0.8The [facility] HospitalComment on above:Performed By: #### CBC #### [facility] [address] [place] [address] Miguel Ángel KarenMonocytes/100 WBC (Bld)7.1 %Normal1.7-12.0The [facility] Comment on above:Performed By: #### CBC #### [facility] [address] [place] [address] Miguel Ángel KarenNEUT #19.9 103/ulCritically high1.4-6.5The [facility] HospitalComment on above:Performed By: #### CBC #### [facility] [address] [place] [address] Miguel Ángel KarenNeutrophils/100 WBC (Bld)84.6 %Critically high43.0-75.0The [facility] HospitalComment on above:Performed By: #### CBC #### [facility] [address] [place] [address] Miguel Ángel KarenPlatelet mean volume (Bld) [Entitic vol]9.7 fLNormal9.5-13.5The [facility] HospitalComment on above:Performed By: #### CBC #### [facility] [address] [place] [address] Miguel Ángel JxnkrXQB740 103/lsDwbpbv929-607Bfz [facility] HospitalComment on above: Performed By: #### CBC #### [facility] [address] [place] [address] Miguel Ángel KarenRBC4.10 106/ulCritically low4.20-5.40The [facility] HospitalComment on above:Performed By: #### CBC #### [facility] [address] [address] Miguel Ángel TmxjgISA55.5 103/ulCritically high4.0-11.0The [facility] HospitalComment on above:Performed By: #### CBC #### [facility] [address] [place] [address] Miguel Ángel SarmientoBASO #0.1 103/ulNormal0.0-0.1The [facility] HospitalComment on above: Performed By: #### PT, PTT #### [facility] [address] [place] [address] Dr. Sage WilksBasophils/100 WBC (Bld)0.4 %Normal0.2-2.0The [facility] Comment on above:Performed By: #### PT, PTT #### [facility] [address] [place] [address] Dr. Sage Noonan #0.1 103/ulNormal0.0-0.7The [facility] HospitalComment on above: Performed By: #### PT, PTT #### [facility] [address] [place] [address] Dr. Sage Liuosinophils/100 WBC (Bld)0.5 %Critically low0.9-7.0The [facility] HospitalComment on above:Performed By: #### PT, PTT #### [facility] [address] [place] [address] Dr. Sage Liurythrocyte distribution width (RBC) [Ratio]15.1 %Critically high 11.0-15.0The [facility] on above:Performed By: #### PT, PTT #### [facility] [address] [place] [address] Dr. Sage WilksHematocrit (Bld) [Volume fraction]36.8 %Qgcsya67.0-48.0[facility] on above:Performed By: #### PT, PTT #### [facility] [address] [place] [address] Dr. Sage WilksHemoglobin (Bld) [Mass/Vol]12.0 g/tVAjjwep68.0-16.0The [facility] HospitalComment on above:Performed By: #### PT, PTT #### [facility] [address] [place] [address] Dr. Sage Oquendo #0.72 10e3/ulCritically high0.00-0.03The [facility] Comment on above:Performed By: #### PT, PTT #### [facility] [address] [place] [address] Dr. Sage Oquendo %3.9 %Critically high0.0-0.5The [facility] HospitalComment on above:Performed By: #### PT, PTT #### [facility] [address] [place] [address] Dr. Sage Lanier #2.5 103/ulNormal1.2-3.8The Wilson Memorial HospitalComment on above:Performed By: #### PT, PTT #### [facility] [address] [place] [address] Dr. Sage Medeiroshocytes/100 WBC (Bld)13.2 %Critically low20.5-60.0The [facility] HospitalComment on above:Performed By: #### PT, PTT #### [facility] [address] [place] [address] Dr. Sage Rodas DIFF REQNONormalThe [facility] Memorial HospitalComment on above: Performed By: #### PT, PTT #### [facility] [address] [place] [address] Dr. Sage Dixon (RBC) [Entitic mass]28.6 mmBsktkr82.7-34.0The [facility] HospitalComment on above:Performed By: #### PT, PTT #### [facility] [address] [place] [address] Dr. Sage Tracey (RBC) [Mass/Vol]32.6 g/pVWmhzwi74.9-35.2The [facility] HospitalComment on above:Performed By: #### PT, PTT #### [facility] [address] [place] [address] Dr. Sage Avila (RBC) [Entitic vol]87.6 eFXjojpt35.0-99.0The [facility] HospitalComment on above:Performed By: #### PT, PTT #### [facility] [address] [place] [address] Dr. Sage Kee #1.3 103/ulCritically high0.3-0.8[facility] Comment on above:Performed By: #### PT, PTT #### [facility] [address] [place] [address] Dr. Sage Mcdonaldocytes/100 WBC (Bld)6.8 %Normal1.7-12.0[facility] Comment on above:Performed By: #### PT, PTT #### [facility] [address] [place] [address] Dr. Sage Hill #14.1 103/ulCritically high1.4-6.5The [facility] Comment on above:Performed By: #### PT, PTT #### [facility] [address] [place] [address] Dr. Sage Guzmanutrophils/100 WBC (Bld)75.2 %Critically high43.0-75.0The [facility] HospitalComment on above:Performed By: #### PT, PTT #### [facility] [address] [place] [address] Dr. Sage Myles mean volume (Bld) [Entitic vol]9.8 fLNormal9.5-13.5The [facility] HospitalComment on above:Performed By: #### PT, PTT #### [facility] [address] [place] [address] Dr. Sage WilksPLT177 103/mrKzkety566-421Aoa [facility] HospitalComment on above: Performed By: #### PT, PTT #### [facility] [address] [place] [address] Dr. Sage WilksRBC4.20 106/ulNormal4.20-5.40The [facility] HospitalComment on above:Performed By: #### PT, PTT #### [facility] [address] [place] [address] Dr. Sage WilksWBC18.7 103/ulCritically high4.0-11.0[facility] HospitalComment on above:Performed By: #### PT, PTT #### [facility] [address] [place] [address] Dr. Sage WilksCULTURE BLOODon 04-36-6852Nmrcpztunpv examination of blood, cultureCulture Observations: NO GROWTH AT 5 DAYS.NormalUniversity Hospitals Conneaut Medical Center HospitalComment on above:Performed By: #### CBC #### [facility] [address] [place] [address] Miguel Ángel KarenCULTURE URINEon 66-29-8672XAWEGAW URINECulture Observations: NO GROWTH.NormalOhio Valley HospitalComment on above:Performed By: #### URCX #### [facility] [address] [place] [address] Miguel Ángel KarenDRUG SCREEN RAPID (URINE)on 70-13-5732HHPJpxynszeCvlxzjYRTPISDPXyf Bellevue HospitalComment on above:Performed By: #### CBC #### [facility] [address] [place] [address] Miguel Ángel KarenBARNegativeNormalNEGATIVEAultman Alliance Community Hospital on above: Performed By: #### CBC #### [facility] [address] [place] [address] Miguel Ángel KarenBUPNegativeNormalNEGATIVEOhio Valley HospitalComascension genesys hospital on above: Performed By: #### CBC #### [facility] [address] [place] [address] Miguel Ángel KarenBZONegativeNormalNEGATIVEOhio Valley HospitalComment on above: Performed By: #### CBC #### [facility] [address] [place] [address] Miguel Ángel KarenCOCNegativeNormalNEGATIVEAultman Alliance Community Hospital on above: Performed By: #### CBC #### [facility] [address] [place] [address] Miguel Ángel KarenCUT-OFFSSEE BELOWNoalThPomerene HospitalComment on above:Result Comment: AMP (Amphetamine): 500ng/mL, BAR (Barbituates): 200 ng/mL, BZO (Benzodiazepines): 150 ng/mL, BUP (Buprenorphine): 10 ng/mL, OLIVIER (Cocaine): 150 ng/mL, mAMP (Methamphetamine): 500 ng/mL, MTD (Methadone): 200 ng/mL, OPI (Opiates): 100 ng/mL, OXY (Oxycodone): 100 ng/mL, PCP (Phencyclidine): 25 ng/mL, PPX (Propoxyphene): 300 ng/mL, THC (Cannabinoids): 50 ng/mL, TCA (Trycyclic Antidepressants): 300 ng/mLPerformed By: #### CBC #### [facility] [address] [place] [address] Miguel Ángel KarenDRUG CUT HEADERDRUG CLASS TEST SYSTEM CUT-OFF CONCENTRATIONS ARE FOLLOWS:NormalThe [facility] HospitalComment on above:Performed By: #### CBC #### [facility] [address] [place] [address] Miguel Ángel KarenmAMPNegativeNormalNEGATIVEOhio Valley HospitalComascension genesys hospital on above: Performed By: #### CBC #### [facility] [address] [place] [address] Miguel Ángel KarenMTDNegativeNormalNEGATIVEAultman Alliance Community Hospital on above: Performed By: #### CBC #### [facility] [address] [place] [address] Miguel Ángel KarenOPINegativeNormalNEGATIVEOhio Valley HospitalComascension genesys hospital on above: Performed By: #### CBC #### [facility] [address] [place] [address] Miguel Ángel KarenOXYNegativeNormalNEGATIVEOhio Valley HospitalComment on above: Performed By: #### CBC #### [facility] [address] [place] [address] Miguel Ángel KarenPCPNegativeNormalNEGATIVEOhio Valley HospitalComment on above: Performed By: #### CBC #### [facility] [address] [place] [address] Miguel Ángel KarenPPXNegativeNormalNEGATIVEOhio Valley HospitalComment on above: Performed By: #### CBC #### [facility] [address] [place] [address] Miguel Ángel KarenTCANegativeNormalNEGATIVEOhio Valley HospitalComascension genesys hospital on above: Performed By: #### CBC #### [facility] [address] [place] [address] Miguel Ángel KarenTHCNegativeNormalNEGATIVEOhio Valley HospitalComment on above: Performed By: #### CBC #### [facility] [address] [place] [address] Miguel Ángel KarenLACTATE/LACTIC ACIDon 82-30-3787Yvcekpn [Moles/Vol]1.1 mmol/LNormal 0.7-2.0[facility] HospitalComascension genesys hospital on above:Performed By: #### LACT #### [facility] [address] [place] [address] Miguel Ángel KarenPOINT OF CARE GLUCOSEon 39-18-4851Xgqkcgt [Mass/Vol]120 mg/dL Critically ukin95-124EbdOhio Valley HospitalComascension genesys hospital on above:Performed By: #### POCGLUC #### [facility] [address] [place] [address] Miguel Ángel KarenTYPE AND SCREENon 02-16-5975VMYQ AND SCREENNegativeNormalThe [facility] HospitalComascension genesys hospital on above:Performed By: #### CBC #### [facility] [address] [place] [address] Miguel Ángel WilsonenUA (CLEAN/CATCH) ER TECH/MICRO IF IND.on 74-22-8023Ztgqszwwb Ql (U) NegativeNormalNEGATIVEOhio Valley HospitalComment on above:Performed By: #### PT, PTT #### [facility] [address] [place] [address] Dr. Sage Leon (U)CLEARNormalCLEAROhio Valley HospitalComment on above: Performed By: #### PT, PTT #### [facility] [address] [place] [address] Dr. Sage Castro (U)LT. YELLOWNormalYELLOWOhio Valley HospitalComment on above:Performed By: #### PT, PTT #### [facility] [address] [address] [address] Sage WilksGlucose Ql (U)NegativeNormalNEGATIVEOhio Valley HospitalComment on above:Performed By: #### PT, PTT #### [facility] [address] [address] [address] Sage WilksHemoglobin Ql (U)LARGEAbnormalNEGPremier Health Upper Valley Medical Center Comment on above:Performed By: #### PT, PTT #### [facility] [address] [place] [address] Dr. Sage WilksKetones Ql (U)NegativeNormalNEGATIVEOhio Valley HospitalComment on above:Performed By: #### PT, PTT #### [facility] [address] [place] [address] Dr. Sage WilksLEUKOCYTESMODERATEAbnormalNEGATIVEOhio Valley HospitalComment on above:Performed By: #### PT, PTT #### [facility] [address] [place] [address] Dr. Sage WilksNitrite Ql (U)NegativeNormalNEGATIVEOhio Valley HospitalComment on above:Performed By: #### PT, PTT #### [facility] [address] [place] [address] Dr. Sage WilkspH (U)6.0 [pH]Normal5-9The [facility] HospitalComment on above: Performed By: #### PT, PTT #### [facility] [address] [place] [address] Dr. Sage WilksSPEC GRAVITY1.085Guatvp0.005-<=1.025The [facility] HospitalComment on above:Performed By: #### PT, PTT #### [facility] [address] [address] [address] Sage WilksUA PROTEINNegativeNormalNEGATIVE/ TRACEThe [facility] Comment on above:Performed By: #### PT, PTT #### [facility] [address] [address] [address] Sage Herrera MICRO INDINDICATEDSt. Rita's HospitalComment on above: Performed By: #### PT, PTT #### [facility] [address] [place] [address] Dr. Sage Morales Qn (U)0.2 {Jakob'U}/dLNormal0.2 - 1.0The [facility] Limament on above:Performed By: #### PT, PTT #### [facility] [address] [place] [address] Dr. Sage Green MICROSCOPIC ONLYon 63-55-0741GQJQSZJAVHJTDKivkovaxDWOZ SEEN The [facility] HospitalComascension genesys hospital on above:Performed By: #### PT, PTT #### [facility] [address] [place] [address] Dr. Sage Del Castillo identified Cx Nom (U)CX ALREADY ORDEREDSt. Rita's HospitalComascension genesys hospital on above:Performed By: #### PT, PTT #### [facility] [address] [place] [address] Dr. Sage Klein SEENNormalNONE SEENAultman Alliance Community Hospital on above:Performed By: #### PT, PTT #### [facility] [address] [place] [address] Dr. Sage De Leon LM Nom (Urine sed)NONE SEENNormalNONE SEENOhio Valley HospitalComascension genesys hospital on above:Performed By: #### PT, PTT #### [facility] [address] [place] [address] Dr. Cazares ChangEpithelial cells LM Ql (Urine sed)RARENormalNONE SEEN /RAREThe [facility] HospitalComascension genesys hospital on above:Performed By: #### PT, PTT #### [facility] [address] [place] [address] Dr. Sage Agee SEENNormalNONE SEENOhio Valley HospitalComascension genesys hospital on above:Performed By: #### PT, PTT #### [facility] [address] [place] [address] Dr. Sage KahnUutvbPLK48-54Qhcpwleg2-2Lvy [facility] HospitalComment on above: Performed By: #### PT, PTT #### [facility] [address] [address] [address] Sage WilksWBC5-10AbnormalNONE SEENThe [facility] HospitalComment on above: Performed By: #### PT, PTT #### [facility] [address] [address] [address] Sage WilksGROUP B STREP CULTUREon 04-12-2021. agalactiae Ag Ql (Unsp spec) Culture Observations: NEGATIVE FOR GROUP B STREPTOCOCCUS.NormalThe [facility] HospitalComment on above: Performed By: #### CBC #### [facility] [address] [place] [address] Miguel Ángel Hernández PREG PLACENTAon 72-51-8336UH PREG PLACENTAEXAM: US PREG PLACENTA HISTORY: Low [...] Electronically authenticated by: LENNY GUTIÉRREZ Date: 2021-02-02 15:19NormDunlap Memorial HospitalUS PREG PLACENTAEXAMINATION: US PREG PLACENTA HISTORY: Low lying placenta COMPARISON: 12/08/2020 FINDINGS: position: Cephalic presentation, longitudinal lie Placenta: Posterior, grade 1. The placental edge is not visualized due to presentation. Heart rate: 141 BPM Cervix: 3.7 cm, closed IMPRESSION: Placental edge is not definitively visualized due to head position Electronically authenticated by: SANDEE LUGO Date: 2021-02-02 07:18NormDunlap Memorial HospitalGLUCOSE - 1HRon 35-28-7164Mqloslq [Mass/Vol]106 mg/dLNormal 74-106The [facility] HospitalComment on above:Performed By: #### CBC #### [facility] [address] [place] [address] Miguel Ángel KarenHEMOGRAM AND PLATELon 57-81-4899Cuswuisoqr (Bld) [Volume fraction] 39.4 %Ijuozo07.0-48.0The [facility] HospitalComment on above:Performed By: #### HH #### [facility] [address] [place] [address] Miguel Ángel KarenHemoglobin (Bld) [Mass/Vol]12.7 g/yIJoiiab88.0-16.0The [facility] HospitalComment on above:Performed By: #### HH #### [facility] [address] [place] [address] Miguel Ángel KarenMCH (RBC) [Entitic mass]29.8 gbIawgxi69.7-34.0[facility] Comment on above:Performed By: #### HH #### [facility] [address] [place] [address] Miguel Ángel KarenMCHC (RBC) [Mass/Vol]32.2 g/gPHiwjjd87.9-35.2The [facility] Comment on above:Performed By: #### HH #### [facility] [address] [place] [address] Miguel Ángel KarenMCV (RBC) [Entitic vol]92.5 qRRmmszn99.0-99.0[facility] Comment on above:Performed By: #### HH #### [facility] [address] [place] [address] Miguel Ángel QkzhbTXO818 103/xaUkdkws512-148Ygp [facility] HospitalComment on above: Performed By: #### HH #### [facility] [address] [place] [address] Miguel Ángel KarenRBC4.26 106/ulNormal4.20-5.40The [facility] HospitalComment on above: Performed By: #### HH #### [facility] [address] [place] [address] Miguel Ángel RljcqHWA20.4 103/ulCritically high4.0-11.0The [facility] HospitalComment on above:Performed By: #### HH #### [facility] [address] [id number] Miguel Ángel WilsonAlfaLenka 60-73-5073FALOL..[facility] [address]Pdyyhh [facility] CLINIC NOTEPATIENT NAME: YANETH DENNIS LMR: [id number] OF : 2000ACCT: [id number] OF SERVICE: 09/14/2017DATE OF SURGERY: 03/17/2017 -- T2-P9cmrfdzkzr spinal fusion and selectiveinstrumentation.SUBJECTIVE: Yaneth is now [...] in the EOS system.ATTENDING: Monty Reynolds M.D.CC:JOB: [id number]: [id number]: 09/14/2017 14:57:25 / ajDT: 09/15/2017 13:02:49 / dg........NormalKettering Health Springfield's [facility]edar City HospitalXR SCOLI SPINE 2-3 VIEWSon 22-45-1232YE SCOLI SPINE 2-3 VIEWS [facility] [place], [place] [address]TJTTDCF IMAGING DEPARTMENT PATIENTNAME: YANETH DENNIS ORDER: BIRTHDATE: 2000 ACCT: [id number]: , MR: LOCATION: [facility]------- XR SCOLI SPINE 2-3 VIEWS ORDERING [...] in a confidential manner consistent with medical recordpolicies.[facility] TRANSon 20-49-5971KRFKD..[facility] [address]Lrtwkg Fax: [phone] CLINIC NOTEPATIENT NAME: YANETH DENNIS LMR: [id number] OF : 2000ACCT: [id number] OF SERVICE: 07/27/2017DATE OF SURGERY: March 17, [...] 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[facility] [address]Zjabde OR[facility]OP[facility]EDIC CLINIC NOTEPATIENT NAME: YANETH DENNIS LMR: [id number] OF : 2000ACCT: [id number] OF SERVICE: 07/11/2017SUBJECTIVE: Yaneth is a 16-year-old [...] weeks to discuss theresults.ATTENDING: Monty Reynolds M.D.CC:JOB: [id number]: [id number]: 07/11/2017 12:20:47 / ajDT: 07/12/2017 12:07:17 / sls........[facility] TrumbullXR SCOLI SPINE 2-3 VIEWSon 12-69-4652NW SCOLI SPINE 2-3 VIEWS [place], [place] [address]PNCFRSI IMAGING DEPARTMENT PATIENTNAME: YANETH DENNIS ORDER: BIRTHDATE: 2000 ACCT: [id number]: , MR: LOCATION: [facility]------- XR SCOLI SPINE 2-3 VIEWS ORDERING [...] in a confidential manner consistent with medical recordpolicies.[facility] HospitalUS-BREAST LT COMPLETEon 14-84-2007KN-BREAST LT COMPLETEThis is a summary report. The [...] - Suspicious Abnormality 2 -95 % Chanceof Szomnzhscd4R - Low Suspicion (2-10%)4B - Moderate Suspicion (10-50%)4C - High Suspicion (50-95%)Biopsy5 - Highly Suggestive of Malignancy >95% Chance of Malignancy Biopsyl be sent to the soren alvarezElectronically Signed by: Veronica Hope, 06/20/2017 4:57 [facility] HospitalTRANSon 37-53-3934GNMTK..[facility] PediatricOne [address] [id number] ORTHOPAEDIC CLINIC NOTEPATIENT NAME: YANETH DENNIS LMR: [id number] OF : 2000ACCT: [id number] OF SERVICE: 04/06/2017SUBJECTIVE: Yaneth is a 16-year-old [...] activities at that time.ATTENDING: Monty Reynolds M.D.CC:JOB: [id number]: [id number]: 04/06/2017 17:10:01 / ajDT: 04/09/2017 10:29:31 / sls........[facility] HospitalXR SCOLI SPINE 2-3 VIEWSon 53-55-6804OC SCOLI SPINE 2-3 [facility], [place] [address]OCXJKFM IMAGING DEPARTMENT PATIENTNAME: YANETH DENNIS ORDER: BIRTHDATE: 2000 ACCT: [id number]: , MR: LOCATION: 100------- XR SCOLI SPINE [...] in a confidential manner consistent with medical recordpolicies.NormalHolmes County Joel Pomerene Memorial HospitalHEMOGLOBIN AND HEMATOCRIT on 28-53-5613Qzdmqvfsku (HCT)28.8 %Aqn68-50KvivyqHolmes County Joel Pomerene Memorial HospitalComment on above:Performed By: #### BMP ####[facility] [address]Awpvdmxxck mass conc (Bld)9.6 g/dLLow 12.0-15.0Hol[facility] Pomerene Memorial HospitalComment on above:Performed By: #### BMP ####[facility] [address]YR SCOLI SPINE 2-3 VIEWSon 20-45-7678TM SCOLI SPINE 2-3 [place], [place] [address]OJJPYTO IMAGING DEPARTMENT PATIENTNAME: YANETH DENNIS ORDER: BIRTHDATE: 2000 ACCT: [id number]: MR: LOCATION: [facility]------- XR SCOLI SPINE 2-3 VIEWS ORDERING DOCTOR: LEÓN KRAUSE ORDER #(S): Standing PA and lateral thoracolumbar [...] in a confidential manner consistent with medical recordpolicies.[facility] - TrumbullEKG 12-LEADon 27-84-9921ARO 12-LEAD: Test Reason : CHEST PAIN/METHODON Blood [...] QUICK MD Overread By: Logan Mcdaniels MD NormalHolmes County Joel Pomerene Memorial HospitalHEMOGLOBIN AND HEMATOCRITon 54-73-5423Iktzyemfeq (HCT)30.6 %Jxf35-69JhbutdHolmes County Joel Pomerene Memorial HospitalComment on above:Performed By: #### BMP ####[facility] [address]Lfmygsooir mass conc (Bld)10.2 g/dLLow12.0-15.0[facility]omerene Memorial HospitalComascension genesys hospital on above:Performed By: #### BMP ####[facility] [address]BU SURG C-ARM > 1 HRon 74-84-4863NM SURG C-ARM > 1 HRUPPER [facility] MED[facility] CENTERONE [place], [place] [address]CSTRBPT IMAGING DEPARTMENT PATIENTNAME: YANETH DENNIS ORDER: BIRTHDATE: 2000 ACCT: [id number]: , MR: LOCATION: [facility]------- FL SURG C- ARM > 1 [...] a confidential manner consistent with medical recordpolicies. [facility], OPSon 33-49-9803BKBQ EXCESS?NegativeNormalDTrinity Health SystemComment on above:Performed By: #### CG8P ####[facility] [address]Lagrndkhfod (HCO3)22 mmol/OHhibna42-76ZfxqofHolmes County Joel Pomerene Memorial HospitalComment on above:Performed By: #### CG8P ####[facility] [address]LV480.0 mmol/KVfgsxc99-92DvgbwtHolmes County Joel Pomerene Memorial HospitalComment on above:Performed By: #### CG8P ####[facility] [address]QR784.9 zlYmYojxsm08-92RhfupfHolmes County Joel Pomerene Memorial HospitalComment on above:Performed By: #### CG8P ####[facility] [address] Glucose mass conc99 mg/cAPjxefq87-456ZkgxcaHolmes County Joel Pomerene Memorial HospitalComment on above: Performed By: #### CG8P ####[facility] [address]Lvifdvldtp (HCT)31.0 %Qav40-83Xjeljo Children's HospitalComment on above:Performed By: #### CG8P ####[facility] [address]Lsvwxwgkmb mass conc (Bld)10.5 g/dLLow12.5-16.1DTrinity Health SystemComment on above:Performed By: #### CG8P ####[facility] [address]VBROENA CALCIUM1.24 mmol/LNormal1.1-1.35[facility] [address] Rita's Medical Centerment on above:Performed By: #### CG8P ####[facility] [address]F1 qlxwsqwfis974 %NormalOhioHealth Hardin Memorial Hospital on above:Performed By: #### CG8P ####[facility] [address]Rfyfyp in arterial xfukp386 mm[Hg]Kkcg11-45UofultOhioHealth Hardin Memorial Hospital on above:Performed By: #### CG8P ####[facility] [address]bT of blood7.399 [pH] Normal7.35-7.45[facility] on above:Performed By: #### CG8P ####[facility] [address]Tgmoeomcc molar conc3.6 mmol/LNormal3.5-5.3DOur [facility] of [facility] on above:Performed By: #### CG8P ####[facility] [address]Cubxsv169 mmol/LNormal 138-145[facility] on above:Performed By: #### CG8P ####[facility] [address]BEPW EXCESS?NegativeNormal [place] [facility] Memorial HospitalComment on above:Performed By: #### CG8P ####[facility] [address] Bicarbonate (HCO3)17 mmol/YRbj04-27ZvsgndHolmes County Joel Pomerene Memorial HospitalComment on above: Performed By: #### CG8P ####[facility] [address]ZG652.0 mmol/ZFyg54-50RbbyvtHolmes County Joel Pomerene Memorial Hospital Comment on above:Performed By: #### CG8P ####[facility] [address] [address]NQ654.2 mmHgNormal 27-41[facility]omerene Memorial HospitalComment on above:Performed By: #### CG8P ####[facility] [address] [address]Jhsknpe mass conc70 mg/iDZkmnrw41-242MgbmtjHolmes County Joel Pomerene Memorial HospitalComment on above:Performed By: #### CG8P ####[facility]or[facility] [address] [address]Msdqqkixgt (HCT)21.0 %Ecf67-39OihvlxHolmes County Joel Pomerene Memorial HospitalComment on above:Performed By: #### CG8P ####[facility]or[facility] Services[address] [place] [address] Hemoglobin mass conc (Bld)7.1 g/dLLow12.5-16.1DTrinity Health SystemComment on above:Performed By: #### CG8P ####[facility] [address] [address]UJHFBPH CALCIUM0.65 mmol/LLow1.1-1.35 [facility]ome[facility] Memorial HospitalComment on above:Performed By: #### CG8P ####[facility] [address] [address]L3 uhbgqumasn018 %NormalOhioHealth Hardin Memorial Hospital on above:Performed By: #### CG8P ####[facility] [place] [address] 13875Mspjtv in arterial ynaxg599 mm[Hg]Podf42-56ViuwgrMercy Health St. Rita's Medical Centerment on above:Performed By: #### CG8P ####[facility]1 [facility] [address]56qZ of blood7.390 [pH] Normal7.35-7.45[facility] on above:Performed By: #### CG8P ####[facility]1 [facility] [address]Afldtrwmy molar conc2.2 mmol/LLow3.5-5.3DOur [facility] of [facility] on above:Performed By: #### CG8P ####[facility] [address] [address]Ycvmht653 mmol/LHigh 138-145[facility] on above:Performed By: #### CG8P ####[facility] [place] [address] 56775JNEH EXCESS?NegativeNormal [facility] Rita's Medical Centerment on above:Performed By: #### CG8P ####[facility]1 [facility] [address] Bicarbonate (HCO3)22 mmol/NSsnqhc04-18CsxwylOhioHealth Hardin Memorial Hospital on above:Performed By: #### CG8P ####[facility] [place] [address] 20502QN925.0 mmol/PDhzqpz89-31ZsikpfMercy Health St. Rita's Medical Centerment on above:Performed By: #### CG8P ####[facility] [place] [address] 34134QY8 31.0 pkGmGfqkgv24-45SuxocbHolmes County Joel Pomerene Memorial HospitalComment on above:Performed By: #### CG8P ####[facility]1 [facility] [address]Syrywyh mass conc82 mg/lBFlqsug06-304HvrlzaHolmes County Joel Pomerene Memorial HospitalComment on above:Performed By: #### CG8P ####[facility] [address]Rqksefeqpv (HCT)35.0 % Kkulvh47-35YggnhzHolmes County Joel Pomerene Memorial HospitalComment on above:Performed By: #### CG8P ####[facility] [place] [address]4419Hsmoeqpbtz mass conc (Bld)11.9 g/dLLow12.5-16.1DTrinity Health SystemComment on above:Performed By: #### CG8P ####[facility] [place] [address] 96451DGFWVDF CALCIUM1.17 mmol/LNormal1.1-1.35[facility] HospitalComment on above:Performed By: #### CG8P ####[facility] [place] [address] 36619F7 qlecbnggba650 %NormalHolmes County Joel Pomerene Memorial HospitalComment on above:Performed By: #### CG8P ####[facility] [place] [address] 13049Jjzscq in arterial josmm050 mm[Hg]High 80-95[facility] HospitalComment on above:Performed By: #### CG8P ####[facility]1 [facility] [address]hH of blood7.467 [pH]High7.35-7.45[facility] HospitalComment on above:Performed By: #### CG8P ####[facility]1 [facility] [address]Owdqmfsbj molar conc3.3 mmol/LLow 3.5-5.3DaySt. John of God HospitalComment on above:Performed By: #### CG8P ####[facility] [address]Yrsxbo767 mmol/YRdcgpk238-736SbprbaHolmes County Joel Pomerene Memorial HospitalComment on above: Performed By: #### CG8P ####[facility]1 [facility] 84306TVHQYJYMV REPORTon 57-47-8295WAYGDSDLK REPORT [place], [place] [address]RSQSBHQNF REPORTPATIENT NAME: YANETH DENNIS LMRN: [id number] OF : 2000ACCT: [id number]: [address] [place] [address] ADATE OF SURGERY:03/17/2017ATTENDING SURGEON:Monty Reynolds M.D.RESIDENT SURGEON:Nini Hensley D.O.CHIEF GREEN OFFICER:Drea Gallo NP.ANESTHESIA:General endotracheal.PREOPERATIVE DIAGNOSIS:Adolescent idiopathic scoliosis.POSTOPERATIVE DIAGNOSIS:Adolescent idiopathic scoliosis.OPERATION:A T2-L3 posterior spinal fusion and T2-L3 posterior selective spinalinstrumentation.Application of allograft and autograft bone.Spinal neuromonitoring.ESTIMATED BLOOD LOSS:650 mL with 225 mL of Cell Saver returned.COMPLICATIONS:None.INDICATIONS:Patrick is a 16-year-old female who presented to my office earlier [id number] with a new diagnosis of scoliosis. On [...] in the lumbar region. We used our [employer] VERSE System. Weplaced 6 x 45 [...] worked itinto the reduction tulip-heads. Using some remittance clerk tubings, we worked itdown in a drop-in [...] deep layer using 0 Vicryl in a agdzph-fg-eksvc interrupted fashion.We closed the dermal layer using [...] Monty Reynolds M.D.CC:Monty Reynolds M.D., Attending SurgeonJOB: [id number]: [id number]: 03/17/2017 17:29:47 / a jDT: 03/17/2017 21:30:39 / [facility] HospitalTYPE AND CROSS (CROSSMATCH)on 47-07-0879BRM/RH(D)PositiveSelect Medical Specialty [facility] Comment on above:Performed By: #### XM ####[facility]1 [facility] [address]PNV/RH(D) RECHECK PositiveSelect Medical Specialty Hospital - TrumbullComment on above:Performed By: #### XM ####[facility]1 [facility] [address]MEFRVEDZ SCREENNegativeNoLakeHealth TriPoint Medical CenterComment on above: Performed By: #### XM ####[facility]1 [facility] [address]691JQTIC COMPONENT TYPEAS1/3 LEUKOREDUCED RBCNormal [facility] Memorial HospitalComment on above:Performed By: #### XM ####[facility]1 [facility] [address] CROSSMATCH EXPIRATION DATE03/20/2017[facility], Beachwoodment on above:Performed By: #### XM ####[facility]1 [facility] [address]BQZOCLMAQJ RESULTCOMPATIBLEMercy Health Willard Hospital on above:Performed By: #### XM ####[facility]1 [facility] [address]82WJCGTI UNITS MPNRVUX3LbwzkfAaoolrLakeHealth TriPoint Medical CenterComment on above:Performed By: #### XM ####[facility]1 [facility] [address]CSBXYFH HISTORY CHECKPATIENT HISTORY CHECKEDMercy Health Willard Hospital on above:Performed By: #### XM ####[facility]1 [facility] [address]78TBSVJHAQ CHECKSPECIMEN LABEL CHECKEDSelect Medical [facility] Hospital, Beachwoodment on above:Performed By: #### XM ####[facility]1 [facility] [address]KIIOSI [facility],[address] [place], [place] [address]FefnmmXyuajhSelect Medical [facility] Clinic Rehabilitation Hospital, Beachwoodment on above:Performed By: #### XM ####[facility]1 [facility] [address]HBRMXBCEAYA STATUSOK TO TRANSFUSENormal [facility] HospitalComascension genesys hospital on above:Performed By: #### XM ####[facility]1 [facility] [address] UNIT ZTHLSYSZ3BjwmhhZdwnmrSelect Medical Specialty Hospital - TrumbullComment on above:Performed By: #### XM ####[facility]1 [facility] [address]228GYGH [id number] Medical Specialty Hospital [facility]ull Comment on above:Performed By: #### XM ####[facility]1 [facility] [address]UGHNB TESTon 45-03-0000ZLW ( test) Ql (U)NegativeNormalNEGHolmes County Joel Pomerene Memorial HospitalComment on above:Performed By: #### UCG ####[facility]1 [facility] [address]IJ CHEST 1 VIEWon 97-57-3811WC CHEST 1 VIEWUPPER [facility]LEY MED[facility]ENTERONE [place], [place] [address]RKGWRET IMAGING DEPARTMENT PATIENTNAME: YANETH DENNIS ORDER: BIRTHDATE: 2000 ACCT: [id number]: , MR: LOCATION: [facility]------- XR CHEST 1 VIEW ORDERING DOCTOR: [...] in a confidential manner consistent with medical recordpolicies.NormalHolmes County Joel Pomerene Memorial HospitalBANORTON BR[facility] METABOLIC PANELon 71-93-4032RDV (urea nitrogen)22 mg/dL Fpnd02-27UyjlgeHolmes County Joel Pomerene Memorial HospitalComment on above:Performed By: #### BMP ####[facility]1 [facility] [address]Tftieah9.5 mg/dLNormal9.0-11.0[facility] HospitalComment on above:Performed By: #### BMP ####[facility]1 [facility] [address]Hrttrebi947 mmol/SFnop49-935WxvkpnHolmes County Joel Pomerene Memorial HospitalComment on above:Performed By: #### BMP ####[facility]1 [facility] [address]IS671.0 mmol/QPmmlvs19-85YfahuaHolmes County Joel Pomerene Memorial HospitalComment on above:Performed By: #### BMP ####[facility]1 [facility] [address]226Dqnpcsyyrc3.6 mg/dLNormal0.4-1.1DTrinity Health System Comment on above:Performed By: #### BMP ####[facility]1 [facility] [address]Hhebieg mass conc84 mg/eJMipbzf04-679PtqryuHolmes County Joel Pomerene Memorial HospitalComment on above:Performed By: #### BMP ####[facility]1 [facility] [address]Mqtcpeaoo molar conc3.8 mmol/LNormal3.5-5.3DTrinity Health SystemComment on above:Performed By: #### BMP ####[facility]1 [facility] [address]Vbztmp447 mmol/LLow 138-145[facility] HospitalComment on above:Performed By: #### BMP ####[facility]1 [facility] [address]WRI AND DIFFERENTIALon 05-01-8467Dvvnphjnz/100 WBC Auto (Bld)0.8 %Normal 0-1DOur [facility] of [facility]cy [facility] on above:Performed By: #### CBCP ####[facility]1 [facility] [address] Eosinophils/100 leukocytes2.0 %Normal0-3DCleveland Clinic Mentor Hospitalment on above:Performed By: #### CBCP ####[facility]1 [facility] [address]Secwymkpvax distribution width Auto Ratio (RBC)13.9 %Vnkeda97.5-14.5DOur Lady of Mercy Hospital on above: Performed By: #### CBCP ####[facility]1 [facility] [address]Ybhfsplxksej (RBC)4.65 X 10X6/tm7Rovsht1.10-5.30 [facility] on above:Performed By: #### CBCP ####[facility]1 [facility] [address] Hematocrit (HCT)41.7 %Xcdoql36-32EvwykzMercy Health St. Rita's Medical Centerment on above: Performed By: #### CBCP ####[facility]1 [facility] [address]78WWJO SLIDE JJIXXZ660VcczlkItuyicOur Lady of Mercy Hospital on above:Performed By: #### CBCP ####[facility]1 [facility] [address]Kpelvrjhkv mass conc (Bld)13.9 g/oTGqbyap32.0-15.0[facility] on above: Performed By: #### CBCP ####[facility]1 [facility] [address]Rqajkvqqdje/100 .3 %Bqfmqw46-[address] Rita's Medical Centerment on above:Performed By: #### CBCP ####[facility]1 [facility] [address]KEG 29.9 ceZaccsw89-89LkpsonHolmes County Joel Pomerene Memorial HospitalComment on above:Performed By: #### CBCP ####[facility]1 [facility] [address]46JEJP mass conc (RBC)33.4 g/oOXzqfwg90-71MoonzpHolmes County Joel Pomerene Memorial HospitalComment on above:Performed By: #### CBCP ####[facility]1 [facility] [address]87HMU91.6 aXPpccla95-09 [facility] on above:Performed By: #### CBCP ####[facility]1 [facility] [address] Monocytes/100 leukocytes7.6 %High0-5DOur Lady of Mercy Hospital on above: Performed By: #### CBCP ####[facility]1 [facility] [address]44Hrzefslgwwg/100 duzqsfgixz54.3 %Aharlf42-03 [facility] on above:Performed By: #### CBCP ####[facility]1 [facility] [address] ONLINE DIFF TYPEAUTOMATED DIFFERENTIALNoalDOur Lady of Mercy Hospital on above:Performed By: #### CBCP ####[facility]1 [facility] [address]872Idqdqgml mean volume (PMV)8.9 fLNormal 6.3-10.5DOur Lady of [facility]cy Hospital on above:Performed By: #### CBCP ####[facility]1 [facility] [address]Latmfzqow891 x 10x3/ew9Rzpktu836-830SsidaeOhioHealth Hardin Memorial Hospital on above:Performed By: #### CBCP ####[facility]1 [facility] 53463JDX (Leukocytes)7.1 x 10x3/kk7Vvvggl 4.0-10.5DCleveland Clinic Mentor Hospitalment on above:Performed By: #### CBCP ####[facility]1 [facility] [address]VJ, INR/APTTon 54-89-3590lAMC20.2 bJeonte53.1-35.7DTrinity Health SystemComment on above:Performed By: #### PPTT ####[facility]1 [facility] [address]CLY Coag RelTime (Bld) 1.02 {INR}Normal0.90-1.170[facility] on above:Performed By: #### PPTT ####[facility]1 [facility] [address]Cmluvriadty time (PT) Coag time (PPP)12.9 sNormal 11.7-14.4DTrinity Health SystemComment on above:Performed By: #### PPTT ####[facility]1 [facility] [address]Xwwpuptu sourceVENIPUNCTURENormalDOur Lady of Mercy Hospital on above:Result Comment: [facility],[address] [place], [place] [address]Pikkisizn By: #### PPTT ####[facility]1 [facility] [address]BZ SCOLI SPINE 4-5 VIEWSon 45-08-9164PK SCOLI SPINE 4-5 [place], [place] [address]IKJPISF IMAGING DEPARTMENT PATIENTNAME: YANETH DENNIS ORDER: BIRTHDATE: 2000 ACCT: [id number]: , MR: LOCATION: 100------- XR SCOLI SPINE [...] in a confidential manner consistent with medical recordpolicies.[facility] Vital Signs Date TimeVital SignValuePerforming SrdrdjjofZttweuaf81-15-1235 13:01-0400Body mass index (BMI) [Ratio]27.52 kg/n7Teouv Margi DO Work Phone: [facility] HospitalLwlmurvugp30-31-4280 13:01-0400Body jaxezx57.1 kg Stevenson Margi DO Work Phone: [place] [address]Duobafpjlz30-25-3646 13:01-0400Diastolic blood obldzpej57 mm[Hg]Stevenson Margi DO Work Phone: [place] [address]Vkarolmibw66-77-2355 13:01-0400Systolic blood herohhqb867 mm[Hg]Stevenson Margi DO Work Phone: [facility] HospitalCtmoiyzwtm27-08-5761 12:41-0400Body .7 cmFejose luis Wardgel QUALITY CLOTH TESTER Work Phone: [facility] HospitalFysvtiqprz69-54-9551 12:41-0400Body mass index (BMI) [Ratio]28.95 kg/k5Vctgllx Ishanagel QUALITY CLOTH TESTER Work Phone: [phone] [place], [place] [address]Bbngtzfvnd13-09-7816 12:41-0400Body .36 kgFelicia Windnagel QUALITY CLOTH TESTER Work Phone: [place] [address]Latpnlfjfu10-04-3958 12:41-0400Diastolic blood pzvjodia99 mm[Hg]Demetrius Ishanagel QUALITY CLOTH TESTER Work Phone: [facility] HospitalBdxzwnmpzk66-10-1960 12:41-0400Systolic blood pcuikvnb016 mm[Hg]Demetrius Windnagel [employer]ALITY CLOTH TESTER Work Phone: [phone])[phone] [place], [place] [address]Fqeyzxydfn08-21-2502 13:17-0400Body udgxsf438.7 cmSumeet De La Cruz MD Work Phone: [facility]05-21-2025 13:17-0400Body mass index (BMI) [Ratio]29.16 kg/m0AjfsgneSumeet De La Cruz MD Work Phone: [facility]05-21-2025 13:17-0400Body zrelrw52 kg Sumeet De La Cruz MD Work Phone: [phone]) 521-446438 [address]21-2025 13:17-0400Diastolic blood mm[Hg]Sumeet De La Cruz MD Work Phone: [facility]05-21-2025 13:17-0400Heart rate70 /min Sumeet De La Cruz MD Work Phone: [facility]05-21-2025 13:17-0400Respiratory rate 18 /minDcarson De La Cruz MD Work Phone: [facility]05-21-2025 13:17-5648WgL4% (BldA) [Mass fraction]99 %Sumeet De La Cruz MD Work Phone: [facility]05-21-2025 13:17-0400Systolic blood mhwrlebm981 mm[Hg]Sumeet De La Cruz MD Work Phone: [facility]02-11-2025 13:34-0500Blood Pressure LocationLEIDA NUR 075-1553Kjeiwm-RvetcCity [facility] 10-29-2024 13:34-0500Diastolic blood zuxyldto64 mm[Hg]LEIDA NUR 596-6587Ouotrb-XgofoCity Hospital 10-29-2024 13:34-0500Heart rate76 /minLEIDA NUR 501-3781Vtsoor-FanlnCity Hospital 10-29-2024 13:34-4281BkI3% (BldA) [Mass fraction]97 %LEIDA NUR 414-0734Axqyde-VlfinCity Hospital 10-29-2024 13:34-0500Systolic blood ziygjoxt367 mm[Hg]LEIDA NUR 611-7817Cgvcba-QpejpCity Hospital 09-24-2024 08:34-0500Blood Pressure LocationKORYCLYN BECK 639-4287Sxtyxc-YljrkCity Hospital 09-24-2024 08:34-0500Diastolic blood kqdpuspi81 mm[Hg]LEIDA NUR 471-9963Jatoqo-UqlooCity Hospital 09-24-2024 08:34-0500Heart rate85 /minJACLYN CIERSEZWSKI 608-7289Rkdefh-HihbhCity Hospital 09-24-2024 08:34-2738SqH2% (BldA) [Mass fraction]98 %LEIDA NUR 015-8792Uzibre-TyfslCity Hospital 09-24-2024 08:34-0500Systolic blood qonlnlng884 mm[Hg]LEIDA NUR 543-7679Jjntdn-IocyeCity Hospital 08-29-2024 14:53-0500Diastolic blood rqdfkkoj96 mm[Hg]LEIDA NUR 887-8663Rzedxu-GoyljCleveland Clinic [facility] 08-29-2024 14:53-0500Heart rate72 /minJACLYN CINANCIEZMADDYKI 787-3659Pexuyg-WqldhC[facility] Clinic [facility] 08-29-2024 14:53-6287BjM8% (BldA) [Mass fraction]98 %LEIDA NUR 561-8829Rbhwyu-PixkbC[facility] Clinic [facility] 08-29-2024 14:53-0500Systolic blood dicwgxbc563 mm[Hg]LEIDA NUR 914-8387Eezkzp-EipjlC[facility] Clinic [facility] 03-12-2024 15:57-0400Diastolic blood xjwvkjan22 mm[Hg]Bianka ROBJOI 313-6813Twjwdc-AyfvcC[facility] Clinic [facility] 03-12-2024 15:57-0400Heart rate60 /minHaley ROBUCK 094-2694Wqqmxs-PovbvC[facility] Clinic [facility] 03-12-2024 15:57-7981TrT7% (BldA) [Mass fraction]98 %Bianka WOODS 014-5220Qsxsfj-VbxlkC[facility] Clinic [facility] 03-12-2024 15:57-0400Systolic blood xfsunbej362 mm[Hg]Bianka WOODS 696-1658Mkqfac-HrtaaC[facility] Clinic [facility] 02-13-2024 15:11-0400Diastolic blood pxtqsdcy01 mm[Hg]Ilya Patel [facility]05-28-2024 15:11-0400Heart rate81 /minIlya Patel [facility]05-28-2024 15:11-0400Mean blood cnzulomo38 mm[Hg]Ilya Patel [address] [place], [place] 7601605-28-2024 15:11-0400 Respiratory rate16 /minIlya Patel [address] [place], [place] 7601605-28-2024 15:11-7187ZyB4% (BldA) [Mass fraction]97 %Ilya Patel [facility]05-28-2024 15:11-0400 Systolic blood gtuwegjq133 mm[Hg]Ilya Patel [facility]05-28-2024 14:07-0400 Diastolic blood pfbevhem48 mm[Hg]Ilya Patel [facility]05-28-2024 14:07-0400Heart rate67 /minIlya Patel [address] [place], [place] 7601605-28-2024 14:07-0400Mean blood atwuytwi21 mm[Hg]Ilya Patel [facility]05-28-2024 14:07-0400 Respiratory rate13 /minIlya Patel [address] [place], [place] 7601605-28-2024 14:07-5844TdK5% (BldA) [Mass fraction]98 %Ilya Patel [address] [place], [place] 7601605-28-2024 14:07-0400 Systolic blood olydzngv276 mm[Hg]Ilya Patel [address] [place], [place] 7601605-28-2024 13:30-0400 Diastolic blood mm[Hg]Ilya Patel [address] [place], [place] 7601605-28-2024 13:30-0400Heart rate47 /minIlya Patel [address] [place], [place] 7601605-28-2024 13:30-0400Mean blood zxbdisyo15 mm[Hg]Ilya Patel [address] [place], [place] 7601605-28-2024 13:30-0400 Respiratory rate19 /minIlya Patel [address] [place], [place] 7601605-28-2024 13:30-1321SqT6% (BldA) [Mass fraction]98 %Ilya Patel [address] [place], [place] 7601605-28-2024 13:30-0400 Systolic blood sganfvxb200 mm[Hg]Ilya Patel [address] [place], [place] 7601605-28-2024 12:48-0400Body ghrsnxqmtci94.6 [degF]Ilya Patel [address] [place], [place] 7601605-28-2024 12:48-0400Heart rate59 /minIlya Patel [address] [place], [place] 7601605-28-2024 12:48-0400 Respiratory rate18 /minJodipika Patel [address] [place], [place] 7601605-10-2024 15:31-0400Body bzllvgaguiv74.88 [degF]Candelario Wilhelm [address] [place], [place] 7601605-10-2024 15:31-0400 Diastolic blood vingivgm96 mm[Hg]Candelario Wilhelm [facility]05-10-2024 15:31-0400Heart rate70 /minCandelario Wilhelm [facility]05-10-2024 15:31-0400 Respiratory rate16 /minCandelario Wilhelm [facility]05-10-2024 15:31-7620NeP3% (BldA) [Mass fraction]100 %Candelario Wilhelm [facility]05-10-2024 15:31-0400 Systolic blood wcbtsiuh286 mm[Hg]Candelario Wilhelm [facility]04-16-2024 13:16-0400Body .7 cmSumeet De La Cruz MD Work Phone: [facility]04-16-2024 13:16-0400Body mass index (BMI) [Ratio]32.21 kg/b2FzsmxnmSumeet De La Cruz MD Work Phone: [facility]04-16-2024 13:16-0400Body mnyprw68.1 kgSumeet De La Cruz MD Work Phone: [facility]04-16-2024 13:16-0400Diastolic blood azvpvgzz17 mm[Hg]Sumeet De La Cruz MD Work Phone: [facility]04-16-2024 13:16-0400Heart rate62 /min Sumeet De La Cruz MD Work Phone: [facility]04-16-2024 13:16-4082FuK3% (BldA) [Mass fraction]99 %Sumeet De La Cruz MD Work Phone: [facility]04-16-2024 13:16-0400Systolic blood dvcamckg985 mm[Hg]Sumeet De La Cruz MD Work Phone: [facility]02-29-2024 14:39-0500Diastolic blood mm[Hg]Bianka ROBUCK 385-8772Abyqro-UyhwcC[facility] Clinic [facility] 11-16-2023 14:39-0500Heart rate55 /minHaley ROBUCK 918-8809Efmfmu-SknoaC[facility] Clinic [facility] 11-16-2023 14:39-0500Respiratory rate16 /minHaley ROBUCK 015-1890Zwgjjd-CgopgC[facility] Clinic [facility] 11-16-2023 14:39-4497DnK1% (BldA) [Mass fraction]100 %Bianka ROBUCK 724-4213Jxskxy-XptegC[facility] Clinic [facility] 11-16-2023 14:39-0500Systolic blood mjfljhpe812 mm[Hg]Bianka ROBUCK 503-9246Ghqpnu-UvaziC[facility] Clinic [facility] 10-05-2023 14:44-0500Diastolic blood neexuclq34 mm[Hg]Bianka ROBUCK 652-7947Whsejr-PxtqkC[facility] Clinic [facility] 10-05-2023 14:44-0500Heart rate73 /minHaley ROBUCK 790-9364Jjyiar-RfjyyC[facility] Clinic [facility] 10-05-2023 14:44-3345NaK2% (BldA) [Mass fraction]98 %Bianka ROBUCK 005-2591Wznnxz-LedmpC[facility] Clinic [facility] 10-05-2023 14:44-0500Systolic blood mjejsydm342 mm[Hg]Bianka ROBUCK 870-1245Uzsyhy-NqfpsC[facility] Clinic [facility] 08-28-2023 11:30-0500Body kefgxh921.7 cmSumeet De La Cruz MD Work Phone: [facility]12-11-2023 11:30-0500Body ufmnjl95.53 kgSumeet De La Cruz MD Work Phone: [facility]12-11-2023 11:30-0500Diastolic blood wlibjekp71 mm[Hg]Sumeet De La Cruz MD Work Phone: [facility]12-11-2023 11:30-0500Heart rate63 /min Sumeet De La Cruz MD Work Phone: [facility]12-11-2023 11:30-0500Respiratory rate 18 /Ethan De La Cruz MD Work Phone: [facility]12-11-2023 11:30-8844JnZ3% (BldA) [Mass fraction]99 %Sumeet De La Cruz MD Work Phone: [facility]12-11-2023 11:30-0500Systolic blood fdccrsey387 mm[Hg]Sumeet De La Cruz MD Work Phone: [facility] [facility]11-13-2023 13:02-0500Body .7 cmSumeet De La Cruz MD Work Phone: [facility]11-13-2023 13:02-0500Body temperature 97.81 [degF]Sumeet De La Cruz MD Work Phone: [place] [address]-13-2023 13:02-0500Body hsubya73.17 kgSumeet De La Cruz MD Work Phone: [facility]11-13-2023 13:02-0500Diastolic blood mm[Hg]Sumeet De La Cruz MD Work Phone: [place] [address]-13-2023 13:02-0500Heart rate95 /min Sumeet De La Cruz MD Work Phone: [place] [address]-13-2023 13:02-0500Respiratory rate 16 /Ethan De La Cruz MD Work Phone: [place] [address]-13-2023 13:02-2070UvR2% (BldA) [Mass fraction]97 %Sumeet De La Cruz MD Work Phone: [phone] [address]-13-2023 13:02-0500Systolic blood naniqmje459 mm[Hg]Sumeet De La Cruz MD Work Phone: [facility]10-30-2023 16:01-0400Diastolic blood nvmqpcxi27 mm[Hg]Ilya Patel [address] [place], [place] 7601610-30-2023 16:01-0400Heart rate98 /minIlya Patel [address] [place], [place] 7601610-30-2023 16:01-0400 Respiratory rate14 /minIlya Patel [address] [place], [place] 4971910-30-2023 16:01-5211NuN8% (BldA) [Mass fraction]99 %Ilya Patel [address]10-30-2023 16:01-0400 Systolic blood kcwohasb285 mm[Hg]Ilya Patel [address] [place], [place] 7601610-30-2023 15:05-0400 Diastolic blood wtrvqtfe54 mm[Hg]Ilya Patel [address]10-30-2023 15:05-0400Heart rate83 /Jason Patel [address] [place], [place] 7601610-30-2023 15:05-0400 Respiratory rate14 /Jason Patel [address] [place], [place] 7601610-30-2023 15:05-9824AcG3% (BldA) [Mass fraction]98 %Ilya Patel [address] [place], [place] 7601610-30-2023 15:05-0400 Systolic blood elvkzqnc09 mm[Hg]Ilya Patel [address] [place], [place] 7601610-30-2023 13:39-0400Body wbiacidtedq73.6 [degF]Ilya Patel [address] [place], [place] 7601610-30-2023 13:39-0400 Diastolic blood juhfaefy92 mm[Hg]Ilya Patel [facility]10-30-2023 13:39-0400Heart zgtx290 /minIlya Patel [facility]10-30-2023 13:39-0400 Respiratory rate20 /minIlya Patel [facility]10-30-2023 13:39-6352UoA9% (BldA) [Mass fraction]100 %Ilya Patel [facility]10-30-2023 13:39-0400 Systolic blood jsolginz809 mm[Hg]Ilya Patel [facility]05-26-2023 11:41-0400Blood Pressure LocationDERIK SIDELL 876-5986Znaoby-IatnvCity [facility] 02-10-2023 11:41-0400Diastolic blood ecprozut16 mm[Hg]CHRISTOPHER SIDELL 764-6817Zrlpdt-YtubyCity Hospital 02-10-2023 11:41-0400Heart rate70 /minDERIK SIDELL 621-1760Pstgbq-IkkgxCity Hospital 02-10-2023 11:41-0514SyY7% (BldA) [Mass fraction]98 %CHRISTOPHER SIDELL 805-6443Urkjhy-SseewCity Hospital 02-10-2023 11:41-0400Systolic blood nymuhywn185 mm[Hg]CHRISTOPHER SIDELL 168-7896Zhcqaf-FwcrrCity Hospital 10-06-2022 16:27-0500Blood Pressure LocationGmory FLORA 128-6757Elvjbl-MsjdtCity Hospital 10-06-2022 16:27-0500Body sptltcervdf87.98 [degF]Britany FLORA 500-4541Ejhxzh-SvguhCity Hospital 10-06-2022 16:27-0500Diastolic blood wfkjamut09 mm[Hg]Britany HINES 655-0685Thaspu-HynibCity Hospital 10-06-2022 16:27-0500Heart rate94 /minBritany FLORA 938-7159Sdfgfc-ZfwuwCity Hospital 10-06-2022 16:27-1160DmL5% (BldA) [Mass fraction]98 %Britany FLORA 813-7030Pqltlp-EuwqdCity Hospital 10-06-2022 16:27-0500Systolic blood onwkhfbq022 mm[Hg]Britany FLORA 878-3334Mpywiy-Sstwt[address] 07-06-2022 17:06-0400Body nttyvqhqwhg96.34 [degF]Britany FLORA 437-0182Blvqwh-Asnpj[address] 07-06-2022 17:06-0400Diastolic blood oxbnluau38 mm[Hg]Britany FLORA 070-2517Yyulcg-BjfrcCity Hospital 07-06-2022 17:06-0400Heart rate89 /minBritany FLORA 471-4091Jfskzr-CruhtCity Hospital 07-06-2022 17:06-6636ViB4% (BldA) [Mass fraction]98 %Britany FLORA 453-9417Hpoqjn-FpaxvCity Hospital 07-06-2022 17:06-0400Systolic blood dtijztjt831 mm[Hg]Britany FLORA 714-0387Rwxpch-NjcueCity Hospital 04-21-2022 15:06-0400Blood Pressure LocationBritany FLORA 325-3026Iwnggi-EvzrpCity Hospital 08-04-2022 15:06-0400Body kbdhfehthrg16.7 [degF]Britany FLORA 516-7761Oyljya-LesglCity Hospital 08-04-2022 15:06-0400Diastolic blood mm[Hg] Britany HINES 559-2441Atcypu-WhceoCity Hospital 08-04-2022 15:06-0400Heart rate79 /minBritany HINES 407-1569Noysbh-AqircCity Hospital 08-04-2022 15:06-2614OoQ6% (BldA) [Mass fraction]99 % Britany HINES 784-1837Ifxxln-HcxqeCity Hospital 08-04-2022 15:06-0400Systolic blood xkuvrztz428 mm[Hg] Britany HINES 150-5989Ncbyrc-GsbaeCity Hospital 06-15-2022 16:03-0400Blood Pressure LocationAshchelle Morales 652-8951Swkmef-BvrcxCity Hospital 06-15-2022 16:03-0400Body xcjyjbmfiha83.7 [degF]Loretta Morales 289-4363Trobii-DrbdsCity Hospital 06-15-2022 16:03-0400Diastolic blood wvxolhuc77 mm[Hg] Loretta Jemalonk 764-9599Fxszlv-KudmkCity Hospital 06-15-2022 16:03-0400Heart rate85 /minAshley Jemalonk 045-8957Dafgng-VzotiCity Hospital 06-15-2022 16:03-5553IfC1% (BldA) [Mass fraction]99 % Loretta Klonk 490-8969Xltnzv-QtiiwCity Hospital 06-15-2022 16:03-0400Systolic blood vrhyzrgo844 mm[Hg] Loretta Morales 961-3157Yijhqt-EdcymCity Hospital Encounters Encounter DateEncounter TypeCare ProviderFacilityStart: 07-30-2025 End: 40-35-3587Ewqqbisyh Result EncounterCorey Margi DO Work Phone: NOHA External Department UnsolicitedStart: 07-30-2025 End: 25-80-6183Apqcfvzvc Result EncounterCorey Margi DO Work Phone: noms External Department UnsolicitedStart: 07-29-2025 End: 25-09-2976Fmtaqo flowsheetCorey Margi DO Work Phone: NOQL Don OBGYNStart: 07-29-2025 End: 30-76-4671Qqajzd flowsheetCorey Margi DO Work Phone: NOYZ Don OBGYNStart: 07-29-2025 End: 97-19-9532qgtvjvbkizJXZML FAZIONot AvailableStart: 07-06-2025 End: 36-00-6278Xjlakgdmh department patient visitMajonas Srivastava [facility]: 06-26-2025 End: 47-81-8271llkaxknxygCBDGHRSara NURFacility:[facility] CenterStart: 06-26-2025 End: 58-17-3956Ugkxlev encounter procedureLEIDA NUR 262-7282Apvkan-XgrdeCity Hospital Start: 06-16-2025 End: 44-59-6157qjfcyvzsamLCPHBYGO EBERLYNot AvailableStart: 06-02-2025 End: 88-18-1409Vjlvpn flowsheetCorey Margi DO Work Phone: noms Don OBGYNStart: 06-02-2025 End: 20-51-8774Skahfe flowsheetCorey Margi DO Work Phone: NO Don OBGYNStart: 06-02-2025 End: 19-58-4804Tvqzav outpatient visit 15 minutesCorey Margi DO Work Phone: NOMS Don OBGYNComment on above:PCOS (polycystic ovarian syndrome) (Primary Dx); Pelvic congestion syndrome; Follow-up examStart: 06-02-2025 End: 83-93-9667ymsmhdyovqHYXWK DAREKONot AvailableStart: 05-28-2025 End: 18-53-0428cncrzgswiwCIZECR R CIERSEZWSKIFacility:[facility] CenterStart: 05-28-2025 End: 63-58-1358Wsjsyhf encounter procedureLEIDA NUR 139-2671Cqgfwm-TcbgnCity Hospital Start: 05-25-2025 End: 00-37-5797Ypxmsimro department patient visitCandelario WilhelmFacility:[facility] Start: 05-13-2025 End: 82-55-3718wvjozisbyzYBHJQP R CIERSEZWSKIFacility:[facility] CenterStart: 05-13-2025 End: 28-94-1407Yxuisuz encounter procedureLEIDA NUR 427-2482Vejbcd-TsldkCity Hospital Start: 04-29-2025 End: 63-88-7461Hopicfguq department patient visitCandelario WilhelmFacility:[facility] Start: 04-21-2025 End: 58-80-8899Izfdoj outpatient visit 15 minutesJoshua Garcia NP Work Phone: noMS Don OBGYNComment on above:Dysmenorrhea (Primary Dx); Breast lump in female; Pelvic pain in female; Menorrhagia with irregular cycleStart: 04-21-2025 End: 80-99-1939Vuloai flowsheetJoshua Garcia [employer]ALITY CLOTH TESTER Work Phone: noMS Leicester OBGYNStart: 04-21-2025 End: 01-82-2451Raborv flowsPhill Garcia QUALITY CLOTH TESTER Work Phone: noms Don OBGYNStart: 04-21-2025 End: 24-74-5347jfwkqvmkedVNFFHL R CIERSEZWSKIFacility:FTMCStart: 04-16-2025 [facility]alluis OlveraBo[facility] Hospitaltart: 04-08-2025 End: 82-17-6369iahwastlcgIXYHEJ R CIERSEZWSKIFacility: MilanStart: 04-08-2025 End: 67-17-9383Jodkpvm encounter procedureLEIDA NUR 154-8334Wuoxvc-BrqbhCity Hospital Start: 03-06-2025 End: 91-85-4360ovbrkgnsteJIAGYZ R CIERSEZWSKIFacility:[facility] CenterStart: 03-06-2025 End: 20-06-5854Etyirrk encounter procedureLEIDA NUR 540-9423Mapajj-ZaqkoCity Hospital Start: 02-18-2025 End: 82-66-6587zuojpejbvyUHNJZD R CIERSEZWSKIFacility:[facility] CenterStart: 02-18-2025 End: 46-48-8384Ejdgryj encounter procedureLEIDA NUR 776-3049Drypoi-PefodCity Hospital Start: 02-12-2025 End: 00-24-4036Urdnnf flowsheetFelicia C Rudolph QUALITY CLOTH TESTER Work Phone: noms BM NEUROLOGYStart: 02-12-2025 End: 12-61-9927Ptwagv flowsheetFelicia C Rudolph QUALITY CLOTH TESTER Work Phone: noms BM NEUROLOGYStart: 02-12-2025 End: 80-21-3972Imvsvezka encounterSumeet De La Cruz MD Work Phone: NeurologyComment on above:Results; Patient Question Start: 02-12-2025 End: 64-52-7626gihqsfoibsDGVYXOM Riya GALDAMEZNot AvailableStart: 02-12-2025 End: 84-94-1002Fvlzyg outpatient new 45 minutesFelicia Riya Galdamez QUALITY CLOTH TESTER Work Phone: noms SWS NEURComment on above:Osteoarthritis of lumbar spine, unspecified spinal osteoarthritis complication status (Primary Dx)Start: 25-39-5007ymltluozbvJQKIGFJ PHILIPPIFacility:[facility]ertart: 02-09-2025 End: 30-88-6574Tupiliwnpx hospital visit by physicianCt [facility] (I-Stat) Work Phone: [facility] Radiology CT ScanComment on above: Arthrodesis status [Z98.1]Start: 02-05-2025 End: 46-84-5672Pmqyzjg encounter procedureSumeet De La Cruz MD Work Phone: Spine InstituteComment on above:Arthrodesis status (Primary Dx); Spinal stenosis of cervical regionStart: 02-05-2025 End: 79-03-6777ujafwfmjgzQFRLVIT PELLEFacility:[facility] Hospitaltart: 02-04-2025 End: 67-79-6032wyebtlqmcsENOTFLSara NURFacility: [place]Start: 02-04-2025 End: 58-54-4839Wdcwcnt encounter procedureLEIDA NUR 436-7262Zrvvbl-QkffgCity Hospital Start: 01-22-2025 End: 57-19-6286ouhaowvsvzErfaimz Pelle MD Work Phone: Sphkp InstituteComment on above:BackStart: 01-16-2025 End: 41-22-7449vcxafabgkzTicndgy Pelle MD Work Phone: Sprfj InstituteComment on above:BackStart: 01-08-2025 End: 64-06-4146diirmxbvolRNAKKBSara NURFacility:[facility]art: 01-07-2025 End: 04-21-5005wgglihrofuBoitzcn Pelle MD Work Phone: spine InstituteComment on above:My backStart: 12-23-2024 End: 87-35-8757Dujknwoqd encounterSumeet De La Cruz MD Work Phone: NeurologyComment on above:Erroneous encounter-disregardStart: 12-13-2024 End: 55-71-3933Dwi-admission assessmentLEIDA NUR [facility] Start: 12-12-2024 End: 83-91-5657wtvbscosjoYSZHumberto NURFacility:FTMCStart: 12-12-2024 End: 26-13-9041Igh Drop offLEIDA NUR [facility] Start: 12-12-2024 End: 38-61-2410akrfghdvtnQBLLANDY NURFacility:[facility] Hospitalart: 12-09-2024 End: 55-48-6281golshsusscVnjsj L ButlerFacility:Behavioral HealthStart: 11-27-2024 End: 63-81-0677tbtpfqzqtoMUKHumberto NURFacility:[facility] CenterStart: 11-25-2024 End: 27-54-7986ntihmddyttAjkccfm Pelle MD Work Phone: qlc InstituteComment on above:Really bad back pain and it looks like there s a lumpStart: 11-24-2024 End: 76-09-5749Zygjtwhsm department patient visitTim ThomasFacility:FTMCStart: 11-19-2024 End: 96-03-6788wvpuwxovrqUjoeg L ButlerFacility:Behavioral HealthStart: 11-19-2024 End: 13-65-1495Mpvoojp encounter procedureLarey Zhang [facility] start: 10-29-2024 End: 03-87-7212olkozbphqaXSWLANDY NURFacility:[facility] CenterStart: 10-29-2024 End: 50-62-3118Rabklah encounter procedureLEIDA NUR 129-6353Zmaicy-BcwezCity Hospital Start: 10-14-2024 End: 81-96-2956npbesbmrkpITFLANDY NURFacility:[facility]tart: 10-14-2024 End: 89-14-6581Hrapapz encounter procedureLEIDA NUR [facility] Start: 10-02-2024 End: 43-19-8538ckpoxldqbfUxlwp L ButlerFacility:Behavioral HealthStart: 10-02-2024 End: 37-22-3758Kjvsjho encounter procedureChicago L [facility] start: 09-24-2024 End: 39-51-8471fhrqvtjmpkDZUHumberto NURFacility:[facility] CenterStart: 09-24-2024 End: 78-47-2967Cqgfwdr encounter procedureLEIDA NUR 355-4268Ftfaxo-VfsodCity Hospital Start: 09-03-2024 End: 54-14-6033pcofocjimtUbywr L ButlerFacility:Behavioral HealthStart: 09-03-2024 End: 49-72-7603Njovxhq encounter procedureLaura L [facility] start: 08-30-2024 End: 46-66-9362mwyejmvcjlRNN-Riya NURFacility:[facility]tart: 08-30-2024 End: 41-22-0551Mhtanpw encounter procedureLEIDA NUR [facility] Start: 08-29-2024 End: 17-69-0945tlsujolpddJQIYang NURFacility:[facility] HospitalStart: 08-29-2024 End: 87-96-6275Sytdmzw encounter procedureLEIDA NUR [phone]-GyhvuCleveland Clinic [facility] Start: 08-14-2024 End: 83-33-9741mqxdsnifgaREVHumberto NURFacility:[facility]art: 08-14-2024 End: 76-09-1562Jfuvrph encounter procedureLEIDA NUR 096-6501Asbmmw-GddeeCity Hospital Start: 08-13-2024 End: 18-16-1782imsncozafnRoewk L ButlerFacility:Behavioral HealthStart: 08-13-2024 End: 85-57-4451Iydxhih encounter procedureJacey Zhang [facility] start: 04-16-2024 End: 92-21-0987sbctktajfiSmzyo L ButlerFacility:Behavioral HealthStart: 04-16-2024 End: 77-62-1070Yfupwzt encounter procedureLarey Zhang [facility] start: 97-08-8719hfhdyhexvnWhbiw L Butler Facility:Behavioral HealthStart: 03-14-2024 End: 31-21-5374qbzxqaeiwcXwpye E ROBUCKFacility:[facility]tart: 03-14-2024 End: 00-16-5126Oyosjac encounter procedureBianka WOODS [facility] Start: 03-12-2024 End: 95-45-5866Wlptryf encounter Gautam WOODS 607-3163Tephoj-GdemoCleveland Clinic [facility] Start: 03-12-2024 End: 52-60-1089tgiziupjdbHEI Haley E ROBUCKFacility:[facility] HospitalStart: 16-82-7361ssfriwxnsxLrveb L ButlerFacility:Behavioral HealthStart: 02-13-2024 End: 71-16-1779Chlydvfcw department patient visitJo ParenteFacility:[facility]tart: 02-13-2024 End: 28-50-5538Vtnsdvrzp department patient visitFirsthealth Amanda [facility] Start: 02-07-2024 End: 91-51-8042rremgpposwZBM Haley E ROBUCKFacility:[facility] HospitalStart: 02-07-2024 End: 78-66-0091Pjvrkew encounter Gautam WOODS [phone]-MjznmCleveland Clinic [facility] Start: 88-53-1240vjofcicgakTgueg L Butler Facility:Behavioral HealthStart: 01-26-2024 End: 03-06-3645Mjlnumadw department patient visitCandelario Wilhelm [facility] Start: 23-27-5327burexrizqhTPN Haley E ROBUCK Facility:[facility] HospitalSt: 01-16-2024 End: 83-96-4745xtfealfxtdRtjla Leatha PonceFacility:Behavioral HealthStart: 01-16-2024 End: 45-64-5011Axtzecx encounter procedureLaura L [facility] start: 01-12-2024 End: 04-72-0479Pefiqypepa hospital visit by physiciani Radio [facility] (I-Stat/1.5t)RadiologyComment on above:Canceled (CC cx: Financial)Start: 02-97-0560lgglhuflqeJdknera Pelle MD Work Phone: spine InstituteComment on above:MRIStart: 01-09-2024 Rafita De La Cruz MD Work Phone: spine InstituteComment on above:My MRIStart: 01-04-2024 End: 74-06-8040vrvjynawqyFrprk L ButlerFacility:Behavioral HealthStart: 01-04-2024 End: 43-85-9271Uxtggog encounter procedureOhio [facility] start: 01-02-2024 End: 71-01-8478Qqqwqdm encounter Joseline De La Cruz MD Work Phone: spine InstituteComment on above: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); Chronic bilateral low back pain without sciaticaStart: 12-14-2023 End: 77-05-0458rhynfejqfyFntuv L ButlerFacility:Behavioral HealthStart: 12-14-2023 End: 06-85-0515Aavvpql encounter procedureOhio Valley Surgical Hospital [facility] start: 64-77-8987hsbugmnpglSccocji Pelle MD Work Phone: spine InstituteComment on above:My backStart: 21-01-3575tvnmbvdcyyZnmhs ButlerFacility:Behavioral HealthStart: 11-16-2023 End: 50-01-9934wldomuzjuvYOU Bianka WOODSFacility:[facility] HospitalStart: 11-16-2023 End: 42-64-7829Cgugcin encounter Gautam WOODS 564-4742Pplwjr-JeuaeSelect [facility] [place] Start: 10-26-2023 End: 23-60-9337yatrttloqxBzbz Dirk Morales PT Work Phone: noMS NM PTComment on above:DDD (degenerative disc disease), thoracolumbar (Primary Dx); History of spinal fusionStart: 07-96-4295Zyrrp adrianHernan Morales PT Work Phone: noMS NM PTStart: 10-24-2023 End: 00-61-6305znolotafuvRofexgfd Hahn PTANOMS NM PTComment on above:DDD (degenerative disc disease), thoracolumbar (Primary Dx); History of spinal fusionStart: 10-05-2023 End: 21-61-4044inbodbkgwsICR Bianka WOODSFacility:[facility] HospitalStart: 10-05-2023 End: 32-36-9624Imwwcqk encounter procedureBianka WOODS [phone]-AyhigCleveland Clinic [facility] Start: 08-28-2023 End: 29-63-3537Vnncdam encounter procedureSumeet De La Cruz MD Work Phone: Splrv InstituteComment on above:Fusion of spine of thoracolumbar region (Primary Dx)Start: 08-21-2023 End: 42-85-3260gdernglxzqIwvjl M. LueFacility:[facility] Centertart: 08-21-2023 End: 14-60-4085Ljxcpdb encounter procedureClare Vazquez [facility] Start: 07-31-2023 End: 67-35-7779Iqwrbgl encounter procedureSumeet De La Cruz MD Work Phone: Spkti InstituteComment on above:S/P spinal fusion (Primary Dx)Start: 07-31-2023 End: 65-61-8138Uqvaxcc encounter statusXr Ms3Mnukzgdgf ClinicStart: 07-31-2023 End: 49-39-0163Vvumihxgll hospital visit by physicianXr Main Ik5NgzhzjqfkMzqncxr on above:Cervical spinal stenosis [M48.02]Start: 68-73-6235Jtutixlsb encounter Sumeet De La Cruz MD Work Phone: NeurologyComment on above:QuestionStart: 07-24-2023 ambulatoryLaura ButlerFacility:EU NorkStart: 07-20-2023 End: 37-97-7162gkaywtxhibZvarx M. LueFacility:EU [place]walkStart: 07-17-2023 End: 55-74-3741Rfnpzrnsz department patient visitIlya Patel [facility] Start: 23-41-7181Ynaazhlbi encounterCamelia Salazar [facility] Spine InstituteComment on above:CARE CONTINUUM ADVISOR ASSESSMENTStart: 12-38-6542Xplehdhkd encounterSumeet De La Cruz MD Work Phone: Spine InstituteComment on above:Surgery deniedStart: 06-20-2023 End: 18-75-9166rvveouosvtJLF Bianka WOODSFacility:[facility] HospitalStart: 40-81-8703Sorfcuwejxtgo examination Imelda Dash APRN.SALES REPRESENTATIVE TRAINEE Work Phone: [facility] Work Phone: Start: 10-93-5675Ebuxcwgji encounterSvalentina Dash APRN.CNP Work Phone: Pre Admission TestsComment on above:PreOp CallStart: 05-31-2023 End: 02-08-4239qvioobxdheJfhx Jean Marie ESTRELLA Work Phone: Neurology PainComment on above:Spinal stenosis in cervical region (Primary Dx)Start: 05-31-2023 End: 24-83-1564Bqhxcfvncsdk consultation with Edouard Aj PSYD Work Phone: [facility]Start: 39-97-1861uliccrvtzi TIAGO WOODSFacility:[facility] HospitalStart: 05-24-2023 End: 57-80-9855Cpmciuuxtb hospital visit by physicianCt [facility] Patricia Work Phone: RadiologyComment on above:Arthrodesis status [Z98.1] Spinal stenosis of lumbar region, unspecified whether neurogenic claudication present [M48.061]Start: 14-69-3293Sujauyrec encounterSumeet De La Cruz MD Work Phone: spine InstituteComment on above:Appeal sentStart: 08-08-6147usywqrdqvkBdrujnj Pelle MD Work Phone: [facility]Start: 05-10-2023 Documentation procedureSumeet De La Cruz MD Work Phone: spine InstituteComment on above:My old documentation Start: 41-09-9994Jrkifrubv encounterSumeet De La Cruz MD Work Phone: spine InstituteStart: 13-68-0768Yjdwnyhoe to same day surgery centerSumeet De La Cruz MD Work Phone: Spine InstituteComment on above:My surgeryStart: 44-55-7280xkkcqcdbbaImexfsh Pelle MD Work Phone: [facility] MAINStart: 69-87-9702Arfcybfwp encounterSumeet De La Cruz MD Work Phone: Spaqn InstituteComment on above:Patient UpdateStart: 37-58-4273Pehzprfez to same day surgery Gisele Shah PA-C Work Phone: Spmsv InstituteComment on above:S/P spinal fusion (Primary Dx); Anemia following surgeryStart: 79-08-8789bczxwjbhfxGoukthj Pelle MD Work Phone: Spens InstituteStart: 68-72-8959Ayenven encounter statusSumeet De La Cruz MD Work Phone: [facility] Work Phone: Start: 37-60-0371Ceulgvdaw encounterSumeet De La Cruz MD Work Phone: Spsqy InstituteComment on above:Follow UpStart: 45-81-9126Cwiwfbanm encounterSumeet De La Cruz MD Work Phone: Spthe neuromedical center InstituteComment on above:Follow UpStart: 04-24-2023 End: 00-92-4611Hbczykuzhn hospital visit by physicianXr Main Rd8QqekrxirwPnsyeie on above:Juvenile idiopathic scoliosis, 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] Start: 04-11-2023 End: 12-79-9462ekgxbcctypBCV Bianka WOODSFacility:[facility] HospitalStart: 34-90-9150czognygpqfRxdrhts S GRANTFacility:[facility] CenterStart: 77-08-6720Uzdty abstractDimitris (Historical)NeurologyStart: 02-10-2023 End: 46-78-2407Pkuybwr encounter procedureCHRISTOPHER HUTSON 412-0031Dcourk-YsfpxCity Hospital Start: 10-10-2022 End: 94-72-1137Lclspad encounter procedureGregory S FLORA [facility] Start: 10-06-2022 End: 70-35-5847Xzmoxll encounter procedureGregory S [place] [phone]-RcamsCity Hospital Start: 07-06-2022 End: 40-63-2539Yuxwcvo encounter procedureGregory S [place] 265-8936Igyqxl-SgfshCity Hospital Start: 04-21-2022 End: 46-85-0650Lxivzwy encounter procedureGregory S [place] 057-7267Dzajss-RmfdjCity Hospital Start: 03-03-2022 End: 25-75-9394Lupajgy encounter Emory Morales [facility] Start: 03-02-2022 End: 24-46-8360Nqpjybi encounter procedureLoretta Morales [phone]-OftwsSelect [facility] [place] Start: 01-25-2022 End: 22-35-1250nrpfbhwgeeCL STEVENSON FAZIOFacility:O8Wezpy: 16-41-9061mahiwrwgdfQS STEVENSON FAZIOFacility:E0Uvtup: 04-14-2021 End: 89-17-5701Iwczxedrsh and management of inpatientDR STEVENSON FAZIOFacility:H1 Start: 04-12-2021 End: 18-05-9013pbnkqeoxptRG STEVENSON FAZIOFacility:B6Zjzxv: 02-02-2021 End: 17-26-1477rgwkzktddgMB STEVENSON FAZIOFacility:B4Ehhst: 02-01-2021 End: 80-71-2981nipbczgtprTG STEVENSON FAZIOFacility:I9Wrpgv: 09-14-2017 End: 53-58-9380HnqbmmuqadUVRLKettering Health Hamiltontart: 07-27-2017 AmbulatoryKettering Health Hamiltontart: 07-25-2017 End: 49-53-8916RcpkjidmjeBESBKettering Health Hamiltontart: 07-11-2017 End: 44-82-6315SukbapbzaeVLVIUniversity Hospitals Samaritan Medical Centertart: 06-20-2017 End: 58-46-5322CljnakickuWSCEDE B [facility] Hospitaltart: 04-06-2017 End: 32-21-7298TllzqszsizIIVLKettering Health Hamiltontart: 03-28-2017 End: 02-85-4084Qryhqiyqb department patient visitDUSTIN ElderRachelle [facility] Hospitaltart: 03-17-2017 End: 07-16-2627Wxqtzambnc and management of inpatientKettering Health Hamiltontart: 03-13-2017 End: 13-91-7499GarvegtsqxROBPKOrlando Health [facility] Procedures DateProcedureProcedure DetailPerforming ClinicianStart: 78-16-9596DC CHEST 2V Stevenson Margi DO Work Phone: Start: 26-70-2776EPP 12-LEADCorey Margi DO Work Phone: Start: 04-16-2025 End: 89-82-0982Jhpwajdyfyasr w/patient 60 minutesPayton Villalobos PhD Work Phone: Start: 05-53-7449Xg lumbar spine w/o contrast material Tiny Benson MD Work Phone: start: 40-39-1304Epbss entir thrc lmbr crv sac spi w/skull 2/3 vwCarissa Percyus PA-C Work Phone: Start: 93-50-3590Pc lumbar spine w/o contrast material Kavya Singh CREW CALLER.[employer]ES REPRESENTATIVE TRAINEE Work Phone: Start: 85-73-1611Lur spinal canal lumbar w/o contrast materialSserge Singh CREW CALLER.SALES REPRESENTATIVE TRAINEE Work Phone: start: 14-59-7263Eiohf entir thrc lmbr crv sac spi w/skull 2/3 vwCarissa Bonus PA-C Work Phone: Start: 52-06-4015Knqxbhpo of Products of Conception, External ApproachDR STEVENSON FAZIOStart: 80-36-5908Wjpgyqjw of Amniotic Fluid, Therapeutic from Products of Conception, Via Natural or Artificial OpeningDR STEVENSON FAZIOTonsillectomyAshchelle Morales tubes in earsHaydenchelle Andrew Plan of Treatment DateCare ActivityDetailAuthorStart: 01-56-1892Dhptw microalbumin profile DTaP,Tdap,Td Vaccine (8 - Td or Tdap)[facility] 08-18[facility]2025 End: 13-52-7047Rmoklbx encounter gxitdcjdc01/01/2025 11:30 AM EST Office Visit NOMS Don VINCENT [address] [place] [address] Tamra Epstein, PA [address] [place] [address] NOMVioleta Ochoa OBGYNStart: 07-29-2025 End: 07-22-8830Oyhbtin encounter zfmgtjfid21/11/2025 2:00 PM EST Consult NOMVioleta Ochoa OBGYN [address] [place] [place] [phone] Stevenson Kiser, DO [address] [facility] [place] [address] ArrivedNOMS Ochoa OBGYNComment on above:Arrived Start: 07-07-2025 End: 84-24-9595Bxlnfxk encounter pxlfoawue34/20/2025 11:20 AM EDT Procedure Visit NOMVioleta VINCENT [address] [place], [id number] Stevenson Kiser, DO [address] [facility] [place] [address] NOMVioleta Ochoa OBGYNStart: 06-16-2025 End: 66-52-8193Qgjrilthslrs / ancillary services vqhxjvhzuo48/29/2025 9:30 AM EDT Ancillary Procedure NOMVioleta Ochoa OBGYN [address] [place] [place] [id number] [phone] Don OBGYNStart: 06-02-2025 End: 99-98-5853RJXBZDDA Lab Routine PCOS (polycystic ovarian syndrome) Expected: 06/02/2025 (Approximate), Expires: 06/02/2026[facility] HealthcareComment on above: Expected: 06/02/2025 (Approximate), Expires: 06/02/2026Start: 06-02-2025 End: 87-12-8498LP PelvisUS Pelvis w/ TV Imaging Routine PCOS (polycystic ovarian syndrome) Expected: 06/02/2025, Expires: 06/02/2026[facility] HealthcareComment on above:Expected: 06/02/2025, Expires: 06/02/2026Start: 06-02-2025 End: 43-64-7597Mptiban encounter iuhizjkzu40/15/2025 1:10 PM EDT Office Visit RYLEY VINCENT [address] [place] [address] Stevenson Kiser DO [address] [facility] [address] [place], [place] [address] Darian PACHECOGYNComment on above:ArrivedStart: 59-99-9029LFHPM-19 Vaccine ( season)COVID-19 Vaccine ( season)[facility] HealthcareStart: 99-47-7096Lqtxkzxnz vaccinationProMedica Flower Hospitaltart: 04-21-2025 End: 80-73-3345Wguxlej encounter ycpycgjqn86/04/2025 2:30 PM EDT Office Visit RYLEY VINCENT [address] [place] [address] Joshua Garcia, QUALITY CLOTH TESTER [address] [facility] [place] [address] Darian VINCENT Comment on above:ArrivedStart: 04-21-2025 End: 20-90-3306BE Breast - bilateral DiagnosticBilateral diagnostic mammogram Imaging Routine Breast lump in female Expected: 04/21/2025 (Approximate), Expires: 06/21/2026[facility] Work Phone: comment on above:Expected: 04/21/2025 (Approximate), Expires: 06/21/2026Start: 04-21-2025 End: 74-65-3261XI PelvisUS Pelvis w/ TV Imaging Routine Dysmenorrhea Pelvic pain in female Menorrhagia with irregular cycleExpected: 04/21/2025, Expires: 10/22/2025[facility] HealthcareComment on above:Expected: 04/21/2025, Expires: 10/22/2025Start: 74-53-1629Btrdu microalbumin profileDTaP,Tdap,Td Vaccine (7 - Td or Tdap)[facility]: 30-84-6237[facility] Work Phone: Start: 02-05-2025 End: 96-38-1273Mmxkvno encounter procedureSpine InstituteComment on above: painful lump on backLinked RecordsStart: 33-21-5882Wrmgw-19 Vaccine ()Covid-19 Vaccine ()[facility]: 05-19-2024 Covid-19 Vaccine ()Covid-19 Vaccine () [facility]: 18-75-1252Zyddtwuwu vaccinationProMedica Flower Hospitaltart: 01-22-2024 End: 82-86-1891Pukaxef encounter /06/2024 4:00 PM EDT Appointment Radiology [address] [place] [address] MRI THORACIC SPINE WO IVCONRadiologyComment on above:MRI THORACIC SPINE WO IVCONStart: 01-16-2024 End: 71-80-8470Ssyuvyr encounter procedureRadiologyComment on above:CT LUMBAR SPINE WO IVCONXR SCOLIOSIS PA STAND/LAT 2VStart: 01-12-2024 End: 78-11-4604Xhjyxqc encounter oqjdknevy92/26/2024 7:40 PM EDT Appointment Radiology [address] [place] [address] MRI LUMBAR SPINE WO IVCONRadiologyComment on above:MRI LUMBAR SPINE WO IVCONStart: 10-29-2023 End: 04-04-7099GBZ W Auto Differential panel - BloodCBC + DIFF Lab Routine S/P spinal fusion Anemia following surgery Expected: 10/29/2023, Expires: 12/29/2023 [facility] Work Phone: Comment on above:Expected: 10/29/2023, Expires: 12/29/2023Start: 10-29-2023 End: 74-04-1623Qexpsfcg [Mass/volume] in Serum or PlasmaFERRITIN BLD Lab Routine S/P spinal fusion Anemia following surgery Expected: 10/29/2023, Expires: 0 12/29/2023[facility] Work Phone: Comment on above:Expected: 10/29/2023, Expires: 12/29/2023Start: 10-29-2023 End: 34-82-1493Cdpj and Iron binding capacity panel - Serum or PlasmaIRON + TIBC Lab Routine S/P spinal fusion Anemia following surgery Expected: 10/29/2023, Expires: 12/29/2023[facility] Work Phone: Comment on above:Expected: 10/29/2023, Expires: 12/29/2023Start: 10-29-2023 End: 31-37-3575KLTNUEZOERHJ, HEMOGLOBINRETICULOCYTE, HEMOGLOBIN Lab Routine S/P spinal fusion Anemia following surgery Expected: 10/29/2023, Expires: 12/29/2023 [facility] Work Phone: Comment on above:Expected: 10/29/2023, Expires: 12/29/2023Start: 10-26-2023 End: 25-93-5186fgdtclmcja76/08/2024 3:30 PM EST Treatment NOMS ND PT [address] [place] [address] Hernan Morales, PT [address] [place] [address] [facility] PTStart: 82-67-4102Scameclinton Paez [facility] PTStart: 10-24-2023 End: 66-01-6489gxhzkpzxin99/06/2024 3:30 PM EST Treatment NOMS ND PT [address] [facility] [place] [address] Haylee Cox PTANOMS NM PTStart: 08-21-2023 End: 00-78-0342Iakyi entir thrc lmbr crv sac spi w/skull 2/3 vwXR SCOLIOSIS PA STAND/LAT 2V Radiology Routine S/P spinal fusion Expected: 08/21/2023, Expires: 08/29/2024[facility] Work Phone: Comment on above:Expected: 08/21/2023, Expires: 08/29/2024Start: 06-19-2023 End: 03-29-3438Ahlgiquh identified in Urine by CultureURINE CULTURE Microbiology Routine Preop examination Expected: 06/19/2023, Expires: 08/19/2023[facility] Work Phone: Comment on above:Expected: 06/19/2023, Expires: 08/19/2023Start: 06-19-2023 End: 20-21-1374CLX W Auto Differential panel - BloodCBC + DIFF Lab Routine Preop examination Expected: 06/19/2023, Expires: 08/19/2023[facility] Work Phone: Comment on above:Expected: 06/19/2023, Expires: 08/19/2023Start: 06-19-2023 End: 75-37-4732Fgwsxibx [Mass/volume] in Serum or PlasmaFERRITIN BLD Lab Routine Preop examination Expected: 06/19/2023, Expires: 08/19/2023[facility] Work Phone: Comment on above:Expected: 06/19/2023, Expires: 08/19/2023Start: 06-19-2023 End: 04-32-8492Nxjo and Iron binding capacity panel - Serum or PlasmaIRON + TIBC Lab Routine Preop examination Expected: 06/19/2023, Expires: 08/19/2023 [facility] Work Phone: Comment on above:Expected: 06/19/2023, Expires: 08/19/2023Start: 06-19-2023 End: 09-58-0900LKCND COUNTRETIC COUNT Lab Routine Preop examination Expected: 06/19/2023, Expires: 08/19/2023[facility] Work Phone: Comment on above:Expected: 06/19/2023, Expires: 08/19/2023Start: 06-16-2023 End: 83-74-8143TSTEB AUREUS PCRSTAPH AUREUS PCR Lab Routine Cervical spinal stenosis S/P spinal fusion Spinal stenosis of lumbar region with neurogenic claudication Pre-op testing Expected: 06/16/2023, Expires: 10/24/2023[facility] Work Phone: Comment on above:Expected: 06/16/2023, Expires: 10/24/2023Start: 19-39-0210Bxnlb-19 Vaccine ( season)Covid-19 Vaccine ( season)[facility]: 36-54-1909Slsctergd vaccination [facility]: 01-28-3446RFU TESTINGPAP TESTINGProMedica Flower Hospitaltart: 89-81-9363Zjwiakrnp for malignant neoplasm of cervixProMedica Flower Hospitaltart: 24-31-4485Jufbdzfchvwb Vaccine: Pediatrics (0 to 5 Years) and At-Risk Patients (6 to 64 Years) (1 of 2 - PCV)Pneumococcal Vaccine: Pediatrics (0 to 5 Years) and At-Risk Patients (6 to 64 Years) (1 of 2 - PCV)[facility] HealthcareStart: 45-76-8262Gbgvr microalbumin profileProMedica Flower Hospitaltart: 53-50-4071BDMOOWYNK SCREENING (18-24)CHLAMYDIA SCREENING (18-24)[facility]: 54-80-0457ER (GONORRHEA) SCREENING (18-24)GC (GONORRHEA) SCREENING (18-24)[facility] Start: 70-20-3276EKFIJXKSY C SCREENINGHEPATITIS C SCREENINGMercy Health [facility] Start: 76-96-6228Gvqwixbdr C screeningHepatitis C ScreeningMercy Health [facility] Start: 03-34-5351AIU SCREENINGHIV SCREENINGProMedica Flower Hospitaltart: 70-89-6005AVO screeningHIV ScreeningProMedica Flower Hospitaltart: 56-72-1430Xkpfuaycn for Chlamydia trachomatisChlamydia Screening (18-24)[facility]: 2016 Meningococcal B Vaccine: Consider Based On Risk (1 of 2 - Patient Seeks Protection)Meningococcal B Vaccine: Consider Based On Risk (1 of 2 - Patient Seeks Protection)[facility]: 61-40-6284KBTXNDGEMICYM B: Consider based on risk (1 of 2 - Patient Seeks Protection)MENINGOCOCCAL B: Consider based on risk (1 of 2 - Patient Seeks Protection)[facility]: 43-84-0566UAM Vaccine (1 - 3-dose series)HPV Vaccine (1 - 3-dose series)[facility] Start: 88-98-1405ZQPS TO ADULT TRANSITION ANNUAL ASSESSMENTPEDS TO ADULT TRANSITION ANNUAL ASSESSMENTProMedica Flower Hospitaltart: 06-14-4105VLFA TO ADULT TRANSITION INITIAL DISCUSSIONPEDS TO ADULT TRANSITION INITIAL DISCUSSION [facility]: 84-07-7822XUK VACCINE (1 - 2-dose series)HPV VACCINE (1 - 2-dose series)[facility]: 02-45-7633WDBRDBNAFTXI (1 - PCV) PNEUMOCOCCAL (1 - PCV)[facility]: 36-66-0131Epsagwoqtcgp vaccination Pneumococcal Vaccine (1 - PCV)[facility]: 61-72-2648ESHDV-19 VACCINE (#1)COVID-19 VACCINE (#1)[facility]: 63-01-7016XSSCNMXUJ B (1 of 3 - 3-dose series)HEPATITIS B (1 of 3 - 3-dose series)[facility]: 89-33-4887Kqwjxezrw B Vaccine (1 of 3 - 3-dose series)Hepatitis B Vaccine (1 of 3 - 3-dose series)[facility] CenterCBC W Auto Differential panel - BloodCBC and differential Lab Routine PCOS (polycystic ovarian syndrome) Ordered: 06/02/2025 [facility] HealthcareComment on above:Ordered: 06/02/2025 End: 48-24-4415VS Cervical spine WO contrastCT CERVICAL SPINE WO IVCON Radiology Routine Spinal stenosis of cervical region 1 Occurrences starting 02/05/2025 until 03/07/2026[facility] Work Phone: comment on above:1 Occurrences starting 02/05/2025 until 03/07/2026 End: 52-55-6959CP Lumbar spine WO contrastCT LUMBAR SPINE WO IVCON Radiology Routine Chronic bilateral low back pain without sciatica 1 Occurrences starting 01/02/2024 until 5[facility] Occurrences starting 01/02/2024 until 01/31/2025 End: 93-34-5313RX Thoracic spine WO contrastCT THORACIC SPINE WO IVCON Radiology Routine Chronic bilateral low back pain without sciatica 1 Occurrences starting 01/02/2024 until 01/31/2025[facility] ClinicComment on above:1 Occurrences starting 01/02/2024 until 01/31/20258593BSGD-rjhooseBYHC-lewrddk Lab Routine PCOS (polycystic ovarian syndrome) Ordered: 06/02/2025[facility] HealthcareComment on above:Ordered: 06/02/2025Follicle stimulating hormoneFollicle stimulating hormone Lab Routine PCOS (polycystic ovarian syndrome) Ordered: 06/02/2025[facility] HealthcareComment on above:Ordered: 06/02/2025hCG, quantitative, pregnancyhCG, quantitative, Lab Routine PCOS (polycystic ovarian syndrome) Ordered: 06/02/2025[facility] Work Phone: comment on above:Ordered: 06/02/2025[facility] Procedures Routine Cervical spinal stenosis S/P spinal fusion Spinal stenosis of lumbarregion with neurogenic claudication Pre-op testing Ordered: 04/28/2023[facility] Work Phone: Comment on above:Ordered: 04/28/2023Hemoglobin A1c/Hemoglobin.total in BloodHemoglobin A1c Lab Routine Follow-up exam PCOS (polycystic ovarian syndrome) Ordered: 06/02/2025[facility] HealthcareComment on above:Ordered: 06/02/2025Luteinizing hormoneLuteinizing hormone Lab Routine PCOS (polycystic ovarian syndrome) Ordered: 06/02/2025[facility] HealthcareComment on above:Ordered: 06/02/2025 End: 58-60-5058US Lumbar spine WO contrastMRI LUMBAR SPINE WO IVCON Radiology Routine Adolescent idiopathic scoliosis of thoracolumbar region1 Occurrences starting 01/02/2024 until 5[facility] ClinicComment [facility] above:1 Occurrences starting 01/02/2024 until 01/31/2025 End: 57-22-7973QW Thoracic spine WO contrastMRI THORACIC SPINE WO IVCON Radiology Routine Adolescent idiopathic scoliosis of thoracolumbar region 1 Occurrences starting 01/02/2024 until 5[facility] ClinicComment on above:1 Occurrences starting 01/02/2024 until 01/31/2025 End: 53-99-8734Rgtnt entir thrc lmbr crv sac spi w/skull 2/3 vwXR SCOLIOSIS PA STAND/LAT 2V Radiology Routine Juvenile idiopathic scoliosis, unspecified spinal region 1 Occurrences [facility]16/[address] [address] [facility] Work [facility]: Comment on above:1 Occurrences starting 03/16/2023 until 04/14/2024 End: 53-46-3809Njyzl entir thrc lmbr crv sac spi w/skull 2/3 vwXR SCOLIOSIS PA STAND/LAT 2V Radiology Routine Cervical spinal stenosis S/P spinal fusion Spinal stenosis of lumbar region with neurogenic claudication Pre-op testing 1 Occurrences starting 04/28/2023 until 05/26/2024[facility] Work Phone: Comment on above:1 Occurrences starting 04/28/2023 until 05/26/2024 End: 49-68-4649Pultd entir thrc lmbr crv sac spi w/skull 2/3 vwXR SCOLIOSIS PA STAND/LAT 2V Radiology Routine Fusion of spine of thoracolumbar region 1 Occurrences starting 08/28/2023 [address] [facility] Work Phone: Comment on above:1 Occurrences starting 08/28/2023 until 09/26/2024REFER FOR ADMIT INTERVIEWREFER FOR ADMIT INTERVIEW Procedures Routine Cervical spinal stenosis S/P spinal fusion Spinal stenosis of lumbar region with neurogenic claudication Pre-op testing Ordered: 04/28/2023[facility] Work Phone: Comment on above:Ordered: 04/28/2023Thyrotropin [Units/volume] in Serum or PlasmaTSH Lab Routine PCOS (polycystic ovarian syndrome) Ordered: 06/02/2025[facility] HealthcareComment on above:Ordered: 06/02/2025 Thyroxine (T4) free [Mass/volume] in Serum or PlasmaT4, free Lab Routine PCOS (polycystic ovarian syndrome) Ordered: 06/02/2025[facility] HealthcareComment on above:Ordered: 06/02/2025 End: 49-20-6627VA Thoracic and lumbar spine Views for scoliosis W standingXR SCOLIOSIS PA STAND/LAT 2V Radiology Routine Adolescent idiopathic scoliosis of thoracolumbar region 1 Occurrences starting 01/02/2024 until 01/31/2025[facility] Work Phone: Comment on above:1 Occurrences starting 01/02/2024 until 01/31/2025XR Thoracic and lumbar spine Views for scoliosis W standingXR SCOLIOSIS PA STAND/LAT 2V Radiology Routine Arthrodesis status 02/09/2025 9:[address] [facility] [facility] Work Phone: [facility] Immunizations Immunization DateImmunizationNotesCare PccxknpiSwsaqcas24-50-0863dbzlybl toxoid, reduced diphtheria toxoid, and acellular pertussis vaccine, adsorbed; Translations:[Boostrix (Tdap)]Candelario Wilhelm [facility]08-03-2015tetanus toxoid, reduced diphtheria toxoid, and acellular pertussis vaccine, adsorbedDERIK SIDELL [phone]-XdpocCity Hospital 40-06-2187toakvkyqu virus vaccine, unspecified formulationXr Hosp Work Phone: [facility] CenterFndogw73-18-8708xejwalbia virus vaccineDERIK SIDELL 699-3736Uhvkad-CasqoCity Hospital 42-82-8016vkgxquvfw virus vaccine, whole virusSheri Hardy CREW CALLER.SALES REPRESENTATIVE TRAINEE Work Phone: [facility] CenterBnmkob70-08-8201uzovlnzxe, wholeDERIK SIDELL 558-5649Giidng-MamwgCity Hospital 43-05-6622bxtokhxjd virus vaccine, unspecified formulationSheri Hardy CREW CALLER.SALES REPRESENTATIVE TRAINEE Work Phone: [facility] CenterXmjuqj04-92-6620ddbnyzfnrm, tetanus toxoids and acellular pertussis vaccine, unspecified formulationSi Hardy CREW CALLER.SALES REPRESENTATIVE TRAINEE Work Phone: [facility] CenterCbqzgu59-87-3609GHdZ, unspecified formulationDERIK SIDELL 672-6258Edqnlr-XeteuCity Hospital 22-13-2245aqbenpr, mumps and rubella virus vaccineDERIK SIDELL 527-4352Wofxbl-QdjsbCity Hospital 31-18-8235wxxnigdrna vaccine, unspecified formulationDERIK SIDELL 156-4795Oyltao-FekqvCity Hospital 78-70-1022qhoskfkfaa, tetanus toxoids and acellular pertussis vaccine, unspecified formulationSheri Girdwood CREW CALLER.SALES REPRESENTATIVE TRAINEE Work Phone: [facility] CenterPglpnw59-05-8311FTeQ, unspecified formulationDERIK SIDELL 619-8444Evbbwv-OqakjCity Hospital 47-07-6460cvzbxytebc, tetanus toxoids and acellular pertussis vaccine, unspecified formulationSheri Hardy CREW CALLER.SALES REPRESENTATIVE TRAINEE Work Phone: [facility] CenterFrwxmx46-56-4506LZmY, unspecified formulationDERIK SIDELL 565-5821Rlkezi-IwiahCity Hospital 33-88-1303eqcxzibmr B vaccine, pediatric or pediatric/adolescent dosageDERIK SIDELL 565-4431Hdgxyf-OikhmCity Hospital 30-30-8213Rci, unspecified formulationDERIK SIDELL 515-1507Aschxt-VmaefCity Hospital 53-93-9278ldqfvkb, mumps and rubella virus vaccineDERIK SIDELL 342-6684Vrpemp-ObojzCity Hospital 20-76-9115jpxzicjmfc vaccine, unspecified formulationDERIK SIDELL 995-8732Krwtlh-NdlyaCity Hospital 01-95-4217zyazrmanc virus vaccineDERIK SIDELL 462-7988Pjkzen-CddlsCity Hospital 02-32-6751tcqjvluuwj, tetanus toxoids and acellular pertussis vaccine, unspecified formulationSheri Girdwood CREW CALLER.SALES REPRESENTATIVE TRAINEE Work Phone: [facility] CenterPrvimm70-08-8240TSxH, unspecified formulationDERIK SIDELL 758-1948Yccvhn-SyhecCity Hospital 41-03-3014Gjw, unspecified formulationDERIK SIDELL 133-7904Styfnj-HzbjlCity Hospital 01-07-4638kgvioiysgn vaccine, unspecified formulationDERIK SIDELL 471-7670Ipeauq-VmtgdCity Hospital 54-43-8928joimupssdw, tetanus toxoids and acellular pertussis vaccine, unspecified formulationSheri Hardy CREW CALLER.SALES REPRESENTATIVE TRAINEE Work Phone: [facility] CenterSeuggc08-07-7890OUyW, unspecified formulationDERIK SIDELL 577-9943Jagkiw-OuzdfCity Hospital 18-51-8208ohunklbgf B vaccine, pediatric or pediatric/adolescent dosageDERIK SIDELL 259-0174Nqvcpi-ZhskxCity Hospital 52-22-8430Zxt, unspecified formulationDERIK SIDELL 799-9296Widaqd-YtqdlCity Hospital 04-93-5156cyousxlxzg vaccine, unspecified formulationDERIK SIDELL 890-1505Arwjmj-TxzdkCity Hospital 33-90-3020tqoexykyh B vaccine, pediatric or pediatric/adolescent dosageDERIK SIDELL 692-3031Ktuuhd-NmcpuCity Hospital NEGATED: Highlighted row has not occurred!11-16-3068tycrgjyia virus vaccine, unspecified formulationJALEANDER NUR 513-0229Aboira-UxbglCity Hospital NEGATED: Highlighted row has not occurred!46-95-5347rzgvukion virus vaccine, unspecified formulationIlya Patel 174-9323Dhrgdf-HgposCleveland Clinic [facility] NEGATED: Highlighted row has not occurred!19-00-2299xhqaxizou virus vaccine, unspecified formulationLoretta Morales 619-2662Spapug-LiksmSelect [facility] [place] Payers DatePayer CategoryPayerPolicy [id number] [id number] [id number] Health Insurance [employer] Member Subscriber Plan / Payer (Effective 2020- Present) Name: Yaneth Dennis Leatha Relation to Subscriber: Self Name: Chavez Dennisroberto Zhang Payer ID: Not on file Group ID: [id number] Type: Not on file Address: [address] [id number] [id number] 2..1.688274.3.579.2. [id number] 2..1.246455.3.57[id number] 2..1.562873.3.57[id number] 2..1.444052.3.57[id number] 2.1.308074.3.57[id number] 2..1.395498.3.57[id number] 2.1.293861.3.57[id number] 2.16.840.1.629310.3.57[id number] 2.16.840.1.317811.3.57[id number] 2.16.840.1.856746.3.579.2.1[id number] 2.840.1.586967.3.57[id number] 2.840.1.524829.3.57[id number] 2.840.1.462719.3.579.[id number] 2.840.1.459102.3.579.2.65787-11-2749Fpqdhtx25884052 2.840.1.486432.3.57[id number] 2.840.1.832305.3.57[id number] 2.840.1.500109.3.579.2.78428-26-2002Ychqguc47449249 2.840.1.667996.3.579.2.16451-55-1295Jibksfk17885220 2.840.1.106428.3.579.2.27299-20-6910Lwjupge59400037 2.840.1.750287.3.579.2.96545-81-6820Hptjglp99861563 2.840.1.549890.3.579.2.54389-07-8126Puolgff92290669 2.840.1.755814.3.579.2.06014-12-2111Dlpcuhy31279157 2.16.840.1.953394.3.579.2.[id number] 2.16.840.1.972090.3.579.2.82236-75-5227Kkxqqll81787204 2.16.840.1.868754.3.579.2.76929-22-0675Jyqnghv46186485 2.16.840.1.678273.3.579.2.60533-13-0085Elkafwr68083784 2.840.1.080969.3.579.2.85029-51-1283Dqfqluy85736403 2.16840.1.289735.3.579.2.71390-40-5369Skyzxzd93812476 2.840.1.356509.3.579.2.21192-62-3206Izimylh35202739 2.840.1.220368.3.579.2.26337-01-9478Yqzvaqq20073326 2.16.840.1.755304.3.579.[id number] 2.16840.1.433731.3.579.2.03336-16-1052Zxwndse22878392 2.16840.1.803848.3.579.2.25376-43-4327Fqheirx33635342 2.16840.1.054554.3.579.2.93637-69-5502Dvwvegy81625139 2.16.840.1.580220.3.579.2.45213-19-1103Efwtswm70659795 2.16840.1.688381.3.579.2.70840-69-9278Cgrshkl48950427 2.16840.1.696883.3.579.2.12670-99-6218Ocrvfqd26249471 2.840.1.931580.3.579.2.66999-74-0106Cyjlczp05675991 2.840.1.479511.3.579.2.80802-53-7724Ptfzowj00983594 2.840.1.365018.3.579.2.06867-61-6947Iwldzkd70981841 2.840.1.667499.3.579.2.61030-04-7443Lczzgyu73207952 2.840.1.893932.3.579.2.58016-27-7338Ugchdud64409584 2.840.1.191010.3.579.2.75779-00-3551Vjlzgms01538400 2.840.1.756240.3.579.2.88932-26-7411Gxcrxfa39553935 2.840.1.097861.3.579.2.60856-82-4830Qqqnzff42470544 2.840.1.505368.3.579.2.50439-81-9313Wrftihp0799012 2.840.1.126708.3.579.2.60885-16-0134Qusftnr94920327 2.840.1.344532.3.579.2.18027-49-2414Pzaeoed77206257 2.840.1.100461.3.579.2.40870-11-2621Aubvhvz23449493 2.840.1.924562.3.579.2.94848-11-0111Mfsemda41038275 2.840.1.822910.3.579.2.54432-38-8502Ikvubiy14869147 2.16.840.1.932695.3.579.2.63585-89-3154Fcmjguc37958190 2.16.840.1.235134.3.579.2.65991-84-6622Lafpwvd93035831 2.16840.1.677950.3.579.2.15612-37-7548Sovgjuz21950238 2.16.840.1.547196.3.579.2.65176-98-3459Ytmxuxl92928906 2.16840.1.316032.3.579.2.74404-61-4023Npdymvn55287899 2.840.1.188794.3.579.2.23967-92-0199Vcmxngf70760844 2.840.1.680799.3.579.2.48234-07-4253Uxtdyqf55934872 2.840.1.865914.3.579.2.40931-06-8321Uoyhnsl74935544 2.16840.1.497297.3.579.2.13241-94-0994Hgdsqsn25651555 2.16840.1.852288.3.579.2.31610-47-0345Hpqtsrc67248855 2.16840.1.473126.3.579.2.786636-08-1827Egfczkp09522196 2.16840.1.043316.3.579.2.798268-01-4866Aphgtuo64607296 2.16840.1.473883.3.579.2.077769-32-3313Rpspgyy81736920 2.16840.1.652177.3.579.2.942124-28-0188Mfrgusr8830795 2.16.840.1.577910.3.579.[id number] Social History DateTypeDetailFacilityStart: 03-02-2022 End: 65-65-0602Qazfvjf smoking statusNever smoked tobacco (finding)[facility] Comment on above:occasionalStart: 99-40-7661Klzuhxt smoking statusNeverCity [facility] Comment on above:occasionalStart: 04-24-2023 End: 92-51-1003Qwn Assigned At BirthFemalFlower Hospital Start: 66-41-9760Umizbuc smoking status NHISTobacco smoking consumption unknownProMedica Flower Hospitaltart: [id number] Assigned At BirthNot on fileProMedica Flower Hospitaltart: 84-63-3772Cblbyal smoking status NHIS Occasional tobacco smokerMercy Health Springfield [facility] Work Phone: End: 20-02-3027Cqsacpq of tobacco useCigarette SmokerMercy Health Springfield Regional Medical Center Work Phone: History of tobacco usePassive smokerMercy Health [facility] Regional Medical Center Work Phone: Start: 04-24-2023 End: 24-07-7163Cdrytna intakeEx-drinker (finding)[facility] Hospital[facility]art: 04-24-2023 End: 57-24-3623Liwfypg of Social functionProMedica Flower Hospitaltart: 04-24-2023 Tobacco CommentUses medical marijuana prn painProMedica Flower Hospitaltart: 06-16-2023 End: 98-61-6871Ltkkoms smoking status NHISEx-smokerMercy Health Springfield Regional Medical Center End: 34-28-0969Mqdaizz of tobacco useCurrent smokerProMedica Flower Hospitaltart: 06-16-2023 End: 95-57-5096Kgibyja use and exposureSmokeless tobacco non-userMercy Health Springfield Regional Medical Center(I/We) worried whether (my/our) food would run out before (I/we) got money to buy more.Never [facility] Work Phone: In the past 12 months, was there a time when you were not able to pay the mortgage or rent on time?NoCDunlap Memorial Hospital Work Phone: Sexual OrientationMccullough-Hyde Memorial Hospital Start: 05-49-2043BgxLnnhvt (finding)[facility]: 02-12-2025 End: 50-01-5546Apvffkilz beverage intakeLifetime non-drinker (finding)[facility] HealthcareStart: 65-87-4504Thoelwp intakeAlcohol Use [facility] Districtex Assigned At BirthFeCanton-[facility] Sexual OrientationStraight or heterosexualUchealth Greeley Hospital Work Phone: Medical Equipment Procedure CodeEquipment CodeEquipment Original TextEquipment IdentifierDates Graft Bone 30cc 1mm-4mm Range Granules Cancellous Crushed - [id number]: 84-48-8809Pxcsd Liz 3 Titanium Set Scooby Spine - [id number]: 05-07-8865Trl Liz 3 6mm 480mm Spinal - [id number] Start: 75-95-8372Eglgm Liz 3 Walden 6.5mm 55mm Bone Polyaxial Nonsterile Spine - [id number]: 65-18-2823Csfqo Infuse 18mm Large Ii Bovine Collagen Rhbmp-2 26mm Bone Absorbable - [id number]: 07-11-2023 Screw Liz 3 Walden 6.5mm 50mm Bone Polyaxial Nonsterile Spine - [id number]: 92-24-4462Lvkwx Liz 3 Walden 4.5mm 40mm Bone Polyaxial Nonsterile Spine - [id number]: 94-10-6654Mfbea Liz 3 5mm Titanium 35mm Bone Polyaxial Spine Thoracolumbar - [id number]: 03-57-4790Exkqp Liz 3 5mm Titanium 40mm Bone Polyaxial Spine Thoracolumbar - [id number]: 22-67-8133Pwllx Liz 3 6mm Titanium 45mm Bone Polyaxial Spine Thoracolumbar - [id number]: 55-56-5645Jeixd Liz 3 Walden 6mm 40mm Bone Polyaxial Nonsterile Spine - [id number]: 47-76-3334Fsfgc Liz 3 Walden 6mm 45mm Bone Polyaxial Nonsterile Spine - [id number]: 08-06-8542Nxlex Liz 3 Walden 6.5mm 45mm Bone Polyaxial Nonsterile Spine - [id number]: 07-11-2023 Functional Status SbtpUwquasnxfcJkxvfgLmklxcjw94-69-4649Ukckwtlbaw StatusN/[facility]rietMon[facility] Medical Center01-07-2025Functional StatusN/TINYSelect [facility]12-12-2024Functional StatusSymptomatic After Exposure to Contagion NoFisherEastern Oklahoma Medical Center [facility] 18-26-5306Iwrmxiapyj StatusN/[facility]05-10-2024Functional StatusN/TINYPremier Health Miami [facility] Hospital North10-30-2023Functional StatusN/TINYPremier Health [facility]2023Are you deaf, or do you have serious difficulty hearingNo 07/15/2023 11:11 AM Samara Alvarez RN [facility] 07-26-9859Dsu you blind, or do you have serious difficulty seeing, even when wearing glassesNo 07/15/2023 11:11 AM Samara Alvarez RN NoCDunlap Memorial HospitalVutsyp80-76-9041Wh you have serious difficulty walking or climbing stairsNo 07/15/2023 11:11 AM Samara Alvarez RN NoCDunlap Memorial HospitalNbvfhr18-64-7270Da you have difficulty dressing or bathingNo 07/15/2023 11:11 AM Samara Alvarez RN [facility] CenterAscibs00-14-3736Ajbygdj of a physical, mental, or emotional condition, do you have difficulty doing errands alone such as visiting a physician's office or shoppingNo 07/15/2023 11:11 AM Samara Alvarez RN [facility] CenterKabrai44-61-9944Dcuuitasnz StatusN/[facility]01-19-2023Functional StatusN/[facility]10-19-2022Functional StatusN/[facility]08-04-2022Functional StatusN/[facility] [id number] StatusN/[facility] Mental Status TyjgWaowajuobnNndefaRbghbcgo24-76-3635Mnuwabk of a physical, mental, or emotional condition, do you have serious difficulty concentrating, remembering, or making decisionsNo 07/15/2023 11:11 AM Samara Alvarez RN [facility] Clinical Notes 03-02-2022 to 07-06-2025 Note Date & GjsvSbmjJxswbszw21-81-5118 NoteED Patient Education Note Dermatology Sutures, Leora, [...] instrument will secure the staple edges together. [place] are often used to close surgical incisions. They are faster to use than sutures, and they cause less skin reaction. [place] need to be removed using a tool that bends the leora away from your skin. Follow these instructions at home: Medicines ??? Take dcwc-yrc-aohjkqy and prescription medicines only as told by [...] and water are not available, use hand bottom turning lathe tender. ??? Do not try to remove your [...] blood coming from y (more content not included)...[facility]10-09-2025 Evaluation + Plan note Future Scheduled Tests Radiology* CT Spine Cervical w/o Contrast 06/26/25 * CT Spine Thoracic w/o Contrast 06/26/25 * MRI Spine Cervical w/o Contrast 11/27/24 * MRI Spine Lumbar w/o Contrast 11/27/24 * MRI Spine Thoracic w/o Contrast 11/27/24 [facility] 09-15-2025 History of Present illness Narrative* Joshua [...] nursing note reviewed. Exam conducted with a surgical dressing maker present. Vitals: Estimated body mass index is 27.52 kg/m as calculated from the following: Height as of 02/12/25: 5' 8 . Weight as of this encounter: 181 lb. BP: 110/68 No LMP recorded. ASSESSMENT & PLAN ICD-10-CM 1. Pelvic congestion syndrome N94.89 2. Follow-up exam Z09 Patient was seen at [facility] and diagnosed pelvic congestion syndrome. She continues with pelvic pain. Plan is to continue control. Plan will be to obtain ultrasound of the pelvis. Will move forward with diagnostic lap and salpingectomy. Documented by Joshua Garcia NP on behalf of: Stevenson Kiser DO documented in this encounterPerry County Memorial HospitalDcpaaebzmb65-26-6187 NoteED Patient Education Note Dermatology Wound Care, [...] and water are not available, use hand bottom turning lathe tender. ??? Change your dressing as told by [...] by your health care provider. ??? Take wmcd-ydb-awkpbbg and prescription medicines only as told by [...] away. Call your lo (more content not included)...[facility]08-12-2025 NoteED Patient Education Note Obstetrics and Gynecology [...] Follow these instructions at home: ??? Take wuzq-czb-cmlojfw and prescription medicines only as told by [...] provider. Document Revised: 01/11/2022 Document Reviewed: 01/11/2022 ElseCurious Hat Patient Education ? 2023 My Healthy World. Preventive Health How to Use Compression Stockings [...] your health care provider and follow the nuclear fuels research engineer's instructions that come with the stockings. ??? [...] on for as long (more content not included)...[facility]08-04-2025 History of Present illness Narrative* Joshua Garcia [...] nursing note reviewed. Exam conducted with a surgical dressing maker present. Vitals: Estimated body mass index is [...] of: Joshua Garcia NP documented in this encounterPerry County Memorial HospitalAejpxrjplx86-32-3569 Evaluation note* Type Assessment Date assessment Post-traumatic [...] assessment Body mass index [BMI] 29.0-29.9, adult [facility] Work Phone: [phone] Telephone encounter Note* Telephone Encounter - Rashad [...] but recommend herPCP complete the medical questionnaire. [facility]05-29-2025 Miscellaneous Notes* Telephone Encounter - Rashad Reyes [...] if we received the paperwork from her [employer]. Pt stated it has been sent twice. I do see some from December, not sure if it what needs to be filled out. Pt would like a call back Is there any additional information the provider should know? No Last Office Visit: 02/05/2025 Next scheduled appointment: Visit date not found Best number to reach caller: [phone] Best time to reach caller: any Is it OK to leave a detailed voice message? Yes Drea Copeland documented in this encounterMercy Health Springfield Regional Medical Center05-28-2025 Telephone encounter Note * Telephone Encounter - [...] if we received the paperwork from her [employer]. Pt stated it has been sent twice. I do see some from December, not sure if it what needs to be filled out. Pt would like a call back Is there any additional information the provider should know? No Last Office Visit: 02/05/2025 Next scheduled appointment: Visit date not found Best number to reach caller: [phone] Best time to reach caller: any Is it OK to leave a detailed voice message? Yes Drea Copeland [facility]05-25-2025 History of Present illness Narrative* Lalitha Arteaga [...] PATIENT PRESENTS WITH AN IMPLANTABLE OR ATTACHED SLOTTER OPERATOR HELPER: No RADIOLOGY DEPARTMENT: General X-ray: Exam(s) Completed: Spine X-Ray(s): Scoliosis Series PERIPHERAL IV DATA: Not applicable SIGNED BY: ANMOL Grier) February 09, 2025 9:13 AM documented in this encounterMercy Health Springfield Regional Medical Center05-25-2025 NoteHNO ID: [id number] Author: LALITHA ARTEAGA RT(R) Service: Radiology Author [...] PATIENT PRESENTS WITH AN IMPLANTABLE OR ATTACHED SLOTTER OPERATOR HELPER: No RADIOLOGY DEPARTMENT: General X-ray: Exam(s) Completed: Spine X-Ray(s): Scoliosis Series PERIPHERAL IV DATA: Not applicable SIGNED BY: RT Cherrie(Dom) February 09, 2025 9:13 AMSt. George Regional HospitalLhkbthsv23-52-8705 History of Present illness Narrative * Shalom [...] PATIENT PRESENTS WITH AN IMPLANTABLE OR ATTACHED SLOTTER OPERATOR HELPER: No RADIOLOGY DEPARTMENT: CT; Exam(s) Completed: Spine PERIPHERAL IV DATA: Not applicable SIGNED BY: RT Isabella(Dom) February 09, 2025 8:53 AM documented in this encounterMercy Health Springfield Regional Medical Center05-25-2025 NoteHNO ID: [id number] Author: SHALOM MURPHY RT(R) Service: ? Author [...] PATIENT PRESENTS WITH AN IMPLANTABLE OR ATTACHED SLOTTER OPERATOR HELPER: No RADIOLOGY DEPARTMENT: CT; Exam(s) Completed: Spine PERIPHERAL IV DATA: Not applicable SIGNED BY: RT Isabella(R) February 09, 2025 8:53 [facility] HospitalHoqlzmxp55-14-7433 NoteHNO ID: [id number] Author: SUMEET DE LA CRUZ MD Service: [...] the area around your hips) at the [facility] facility; the imaging order has been sent. - We will review your x-rays and CT images and call you with results. If all screws and fusion sites look stable, you can begin physical therapy and start muscle relaxant medication as discussed. - Ask your supervisor nuclear medicine to fax the requested paperwork again to [...] claim: No 07/25/2023 12/26/2023 01/29/2025 Neck Questionnaires [facility] Hospitalel Modified LEONARD Score 18 (No Myelopathy Symptoms) (more content not included)...[facility]05-21-2025 History of Present illness Narrative* Sumeet De [...] the area around your hips) at the [facility] facility; the imaging order has been sent. - We will review your x-rays and CT images and call you with results. If all screws and fusion sites look stable, you can begin physical therapy and start muscle relaxant medication as discussed. - Ask your supervisor nuclear medicine to fax the requested paperwork again to [...] TIME: 3:05 PM PAGER: documented in this encounterMercy Health Springfield Regional Medical Center03-25-2025 NoteNonvisit Note - PT Pt. no showed to today's 1400 evaluation. She then called to re-schedule it at 1420.-- [facility]03-12-2025 Evaluation + Plan note Future Scheduled Tests Radiology* MRI Spine Cervical w/o Contrast 11/27/24 * MRI Spine Lumbar w/o Contrast 11/27/24 * MRI Spine Thoracic w/o Contrast 11/27/24 [facility] [id number] Miscellaneous Notes* Telephone Encounter - Maria De Jesus Wagner RN - 11/26/2024 2:42 PM EDT Pt was seen at [facility] in [place], [place]. Ph. [phone]. She was seen in the ER on [...] w/ CB for review. documented in this encounterMercy Health Springfield Regional Medical Center03-11-2025 Telephone encounter Note * Telephone Encounter - Maria De Jesus Wagner RN - 11/26/2024 2:42 PM EDT Pt was seen at [facility] in [place], [place]. Ph. [phone]. She was seen in the ER on 11/24 Called and requested notes be faxed to our office. [facility]03-11-2025 Telephone encounter Note* Telephone Encounter - Maria [...] imaging Update shared w/ CB for review. [facility]03-09-2025 NoteED Patient Education Note Orthopedics Acute Back [...] Managing pain, stiffness, and swelling ??? Take yzgz-qie-pvluvee and prescription medicines only as told by [...] day. ??? Do not sit, drive, or marbleizing machine tender one place for more than 30 minutes [...] control problems. ??? Y (more content not included)...[facility]06-25-2024 Hospital Discharge instructions Patient Education 03/12/2024 16:15:28 Obesity, Adult, Zfkc-cl-Jmdn Obesity, Adult Obesity is having too much [...] food choices, such as grocery stores and [employer]. What are the signs or symptoms? The [...] eat. ?How much exercise you get. Take tsnz-iwa-kkrzqfv and prescription medicines only as told by [...] provider. Document Revised: 04/12/2022 Document Reviewed: 04/12/2022 MyDream Interactive Patient Education 2022 My Healthy World. Follow Up Care 02/07/2024 12:24:41 With:Bianka WOODS CNP Address: [address] [place] [address]- When:Within 6 Month(s) [facility] 05-28-2024 Hospital Discharge instructions Patient Education [...] Treatment for this condition includes: Antibiotic medicine. Croc-bkm-dmcxrlj medicines to treat discomfort. Drinking enough water [...] Follow these instructions at home: Medicines Take dcsn-qfy-jiaylth and prescription medicines only as told by [...] provider. Document Revised: 04/16/2021 Document Reviewed: 04/16/2021 MyDream Interactive Patient Education 2022 My Healthy World. Follow Up Care 02/13/2024 12:38:04 With:Bianka WOODS Address: [address] [place] [address] Business (1) When:02/16/2024 15:05:07 [facility]05-28-2024 Evaluation + Plan noteExtracted from: Title:ED NoteAuthor:Max RAMOS, JansenDate:02/13/24 Bacterial infection, unspeci fied (A49.9: Bacterial infection, unspecified) UTI (urinary tract infection), bacterial (N39.0: Urinary tract infection, site not specified) Orders: cephalexin, 500 mg = 1 cap(s), Oral, q12hr, X 7 day(s), # 14 cap(s), Refills(s) 0, Pharmacy: [facility]/pharmacy #[id number], 172.7, cm, 02/13/24 12:50:00 EDT, Height/Length Dosing, 97, kg, 02/13/24 12:50:00 EDT,Weight Dosing ketorolac, 30 mg = 1 mL, Injection, IV Push, Once, Stop date 02/13/24 12:57:00 EDT, STAT, Start date 02/13/24 12:57:00 EDT, 02/13/24 12:57:00 EDT naproxen, 500 mg = 1 tab(s), Oral, BID, # 20 tab(s), Refills(s) 0, Pharmacy: [facility]/pharmacy #[id number], 172.7, cm, 02/13/24 12:50:00 EDT, Height/Length [...] Date:03/05/2024 03:00:00 PM Scheduled Provider:Jacey Colvin Location:[facility] Appointment Type: Therapy 60 Appointment Date:03/11/2024 02:20:00 PM Scheduled Provider:Bianka WOODS CNP Location:[facility] Appointment Type: Open Appointment Date:03/12/2024 03:00:00 PM Scheduled Provider:Jacey Colvin Location:[facility] Appointment Type: Therapy 60 Diagnostic Tests Pending * Urine Culture 02/13/24 Future Scheduled Tests Radiology* CT Abdomen/Pelvis w/ Contrast 06/20/23 [facility]05-10-2024 Hospital Discharge instructions Patient Education 01/26/2024 17:15:11 Laceration Care, Adult, Frwp-vl-Mcya Laceration Care, Adult A laceration is a [...] cannot use soap and water, use hand bottom turning lathe tender. Do not usedisinfectants or antiseptics, such as [...] Follow these instructions at home: Medicines Take qzdy-aps-uvfpyin and prescription medicines only as told by [...] provider. Document Revised: 11/11/2021 Document Reviewed: 11/11/2021 MyDream Interactive Patient Education 2022 My Healthy World. Follow Up Care 01/26/2024 15:28:40 With:Bianka WOODS Address: [address] [place], [place] [id number] Business (1) When:01/29/2024 16:45:17 Comments:Call Dr for diagnosis based follow up. Sutures to be removed in 7-10 days. Keep the area dry for 2 days, then may use soap and water to clean around the area. Discussed signs of infection, and when to report to the emergency department. [facility]05-10-2024 Evaluation + Plan noteExtracted from: Title:ED [...] Appointment Date:01/30/2024 03:00:00 PM Scheduled Provider:Jacey Colvin Location:[facility] Appointment Type:BH Therapy 60 Appointment Date:03/05/2024 03:00:00 PM Scheduled Provider:Jacey Colvin Location[facility] Appointment Type:BH Therapy 60 Appointment Date:03/12/2024 03:00:00 PM Scheduled Provider:Jacey Colvin Location:[facility] Appointment Type:BH Therapy 60 Future Scheduled Tests Radiology* CT Abdomen/Pelvis w/ Contrast 06/20/23 [facility]04-23-2024 Telephone encounter Note* Telephone Encounter - Concha Mcbride - 01/09/2024 12:16 PM EDT 01/02/[address] De La Cruz not completed; imaging appt was denied due to lack of documentation. [facility]04-23-2024 Miscellaneous Notes* Telephone Encounter - Concha Mcbride - 01/09/2024 12:16 PM EDT 01/02/[address] De La Cruz not completed; imaging appt was denied due to lack of documentation. documented in this encounterMercy Health Springfield Regional Medical Center04-16-2024 History of Present illness Narrative* Sumeet De [...] Procedure Laterality Date SCOLIOSIS surgery 2018 at [place] Social History Social History Tobacco Use Smoking [...] PGY1 Resident Orthopaedic Surgery documented in this encounterMercy Health Springfield Regional Medical Center02-29-2024 Hospital Discharge instructions Patient Education 11/16/2023 14:46:10 Obesity, Adult, Pgur-cj-Njfa Obesity, Adult Obesity is having too much [...] food choices, such as grocery stores and [employer]. What are the signs or symptoms? The [...] eat. ?How much exercise you get. Take yzmc-xvv-ncbopyc and prescription medicines only as told by [...] provider. Document Revised: 04/12/2022 Document Reviewed: 04/12/2022 MyDream Interactive Patient Education 2022 My Healthy World. Follow Up Care 10/05/2023 15:15:04 With:Bianka WOODS CNP Address: [address] [place] [address]- When:Within 6 Month(s) [facility] 02-08-2024 History of Present illness Narrative* [...] 32 minutes of supervised exercise per flowsheet Travel Occupational Therapist Goals: 1. The patient will achieve at [...] PT Assessment: Patient is discharged to an [facility]. Patient reports 70% improvement since SOC and [...] below. Physician Signature: Date: documented in this encounterPerry County Memorial HospitalMrcljvivnp56-76-0507 History of Present illness Narrative* Sumeet De La Cruz MD - 08/28/2023 11:30 AM EST SPINE SURGERY FOLLOW UP This is an in-person visit. Staff note: Doing well postop, some pain at the top of the construct, expected, she is significantly better than preop and pleased with her course thus far, physical therapy, x-rays, follow-up in 6 weeks. This note was dictated with zwgwpp-yd-fcbh software. Please excuse grammatical errors, brevity, and [...] TIME: 11:31 AM PAGER: documented in this encounterMercy Health Springfield Regional Medical Center11-13-2023 History of Present illness Narrative* Sumeet De [...] TIME: 1:29 PM PAGER: documented in this encounterMercy Health Springfield Regional Medical Center11-10-2023 Miscellaneous Notes* Telephone Encounter - Rashad Reyes [...] getting her leora removed on Monday Ph. [phone] documented in this encounterMercy Health Springfield Regional Medical Center11-02-2023 Hospital Discharge instructions Follow Up Care 07/20/2023 09:52:30 With:George LOWE, DEEPTI Zheng, URO Address: When: Unknown [facility] 10-30-2023 Hospital Discharge instructions Patient Education [...] products, such as yogurt. General instructions Take ndsb-kjd-mcebwtg and prescription medicines only as told by [...] provider. Document Revised: 05/19/2022 Document Reviewed: 05/19/2022 MyDream Interactive Patient Education 2022 My Healthy World. 07/17/2023 16:12:29 Generalized Anxiety Disorder, Adult Generalized [...] can increase anxiety. Avoid caffeine and certain ggaq-uqp-ihbautx cold medicines. These may make you feel worse. Ask yourpharmacist which medicines to avoid. General instructions Take tzqb-erh-gekloju and prescription medicines only as told by your health care provider. Understand that you are likely to have setbacks. Accept this and be kind to yourself as you persistto take better care of yourself. Anticipate stressful situations. Create a plan and allow extra time to work with your plan. Recognize and accept your accomplishments, even if you operations vocational instructor them as small. Spend time with people who care about you. Keep all follow-up visits. This is important. Where to find more information National [place] of Mental Health: www.nimh.nih.gov Substance Abuse and [...] department or: Call your local emergency services (658 in the [place] Call a suicide crisis helpline, such as the National Suicide Prevention Lifeline at or 030 in the [place] This is open 24 hours a day in the [place] Text the Crisis Text Line at 723751 (in the [place] Summary Generalized anxiety disorder [...] provider. Document Revised: 03/30/2022 Document Reviewed: 12/26/2021 MyDream Interactive Patient Education 2022 My Healthy World. Follow Up Care 07/17/2023 13:37:03 With:Bianka RU Address: [address] [place], [place] [phone] Business (1) When:07/20/2023 15:59:38 [facility]10-30-2023 Evaluation + Plan noteExtracted from: Title:ED NoteAuthor:Max RAMOS, JansenDate:07/17/23 Anxiety (F41.9: Anxiety diso rder, unspecified) Chills (R68.83: Chills (without fever)) Hypokalemia (E87.6: Hypokalemia) Orders: escitalopram, 20 mg = 1 tab(s), Oral, Daily, # 30 tab(s), Refills(s) 0, Pharmacy: [facility]/pharmacy #[id number], 172.7, cm, 07/17/23 13:52:00 EDT, Height/Length Dosing, 95.5, kg, 07/17/23 13:52:00 EDT, Weight Dosing lorazepam, 1 mg = 1 tab(s), Oral, TID, X 3 day(s), # 9 tab(s), Refills(s) 0, Pharmacy: [facility]/pharmacy#[id number], 172.7, cm, 07/17/23 13:52:00 EDT, Height/Length Dosing, [...] 08:30:00 AM Scheduled Provider:George LOWE, Clare Lilly Location:[facility] Appointment Type:URO New Patient Future Scheduled Tests Radiology* CT Abdomen/Pelvis w/ Contrast 06/20/23 [facility]10-23-2023 Miscellaneous Notes* Telephone Encounter - Camelia Salazar LSW - 07/10/2023 10:05 AM EDT CARE CONTINUUM ADVISOR ASSESSMENT PRIMARY CARE PHYSICIAN: Bianka Woods CNP, MD OR Surgery Date: 07/11/23 [facility] Financial Resources: pt did not specify Primary Contact: Extended Emergency Contact Information Primary Emergency [place]: [place] [address] [facility] Mobile Relation: Spouse Secondary Emergency Contact: Joshua Hines [facility] Mobile Relation: Mother Other Important Patient Contacts: None 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 No FREEDOM OF CHOICE: Level of Care Discussed: Home Care Financial Disclosure Provided: No Financial Disclaimer Provided: No Provider List: Home Care Provider list within the patient's requested geographic area shared with the patient/family: Yes - Within [address] of [address] [place] [address] Provider Choices Collected Home Health: no preference Interventions: N/A SIGNATURE: JO Anton PATIENT NAME: Yaneth Dennis DATE: July 10, 2023 TIME: 10:05 AM PAGER/CONTACT #: documented in this encounterMercy Health [facility]10-09-2023 Miscellaneous Notes* Telephone Encounter - Rashad Reyes RN - 06/26/2023 2:58 PM EDT Neuro SPINE CARE COORDINATION QUICK NOTE Responded to patient in My Chart message. * Telephone Encounter - Concha Mcbride - 06/26/2023 1:54 PM EDT Pt called; states he surgery was denied; please advise; ph: [phone] Type Date User Summary Attachment Auth/Cert 06/21/2023 [...] Note: PAVE UCB DOS: 07/11/2023 Admission type: [facility] Insurance name: [facility]: [facility] Main hospital sales representative, web used; [facility] [employer] [facility] Phone number called: NA Time of verification: 1:02 PM Case reference number: [id number] Was initial clinical information received?Y/N: Yes When? NA How many pages were received? NA Procedure(s) denied: [id number] Procedure(s) approved: [id number] Diagnosis code(s): M48.02 Z98.1 M48.062 Z01.818 May I know when case was denied? 06/18/2023 Rep advised reconsideration is available: N/A What is the reconsideration timeframe? N/A How can it be done? N/A Who can complete the reconsideration? N/A Is the peer to peer available? Yes Is the peer to peer for consultation only? No May I have the P2P ph# along with prompts? [phone] What is the time frame for the [...] can this be done by his medical insurance claims processor? MD Who can complete the P2P (Doctor, PA, QUALITY CLOTH TESTER)? Would the peer to peer be available if services have been rendered? Yes Is the appeal available? Yes Can I have the appeal ph# along with prompts (information only or can do verbal appeal)? No Can I have the appeal fax#? [phone] Can I have the appeal mailing address? N/A Attention to? [employer] Appeals Department Is it necessary to include any form? Yes: Provider form: [email or web address] Member form: [email or web address] What is the appeal time frame? 60 [...] SPECIALISTS HAVE BEEN NOTIFIED documented in this encounterMercy Health [facility] Center10-03-2023 Evaluation + Plan note Future Scheduled Tests Radiology* CT Abdomen/Pelvis w/ Contrast 06/20/23 [facility] 10-02-2023 Miscellaneous Notes* Telephone Encounter - [...] was also ordered. Thank you Bing Dash APRN.SALES REPRESENTATIVE TRAINEE documented in this encounterMercy Health Springfield Regional Medical Center09-13-2023 History of Present illness Narrative* Katlin Aj PSYD - 05/31/2023 1:01 PM EDT Behavioral Medicine Group Session TREK for Surgical Success/Empowered Relief for Surgery Patient Name: Yaneth Dennis CC#: [id number] Date of service: May 31, 2023 I have communicated my name and active licensure. The patient's identity and physical location wereverified at the time of this visit. Either the patient or their legal textiles sales representative has been informed of the risks and benefits of -- and alternatives to -- treatment through virtual visit and consents to proceed with the session remotely. 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 Anatomic Lumbar Variant: None. L4-5 is considered the level of the iliac crest and assume there are 5 lumbar-type vertebrae. Yard Person: ANDREW Transcribe Date/Time: May 24 2023 10:49A Dictated by : SONI THOMAS MD This examination was interpreted and the report reviewed and electronically signed by: SONI THOMAS MD on May 24 2023 10:57AM [facility] [id number] History of Present illness Narrative* Karina Uribe [...] 24, 2023 10:15 AM documented in this encounterMercy Health Springfield [facility] Center09-06-2023 History of Present illness Narrative* Esme Simpson [...] IV DATA: Not applicable SIGNED BY: ANMOL Kilogre)(MR) May 24, 2023 9:35 AM documented in this encounterMercy Health Springfield [facility] Center09-01-2023 Miscellaneous Notes* Telephone Encounter - Concha Mcbride - 05/19/2023 3:43 PM EDT [place] [id number] MRI Thoracic Spine [place] [id number] MRI Cervical Spine WO IVCON +04/24/23 OV Notes to: Appeals Confirmation received. documented in this encounterMercy Health Springfield [facility] Medical Center08-21-2023 Miscellaneous Notes* Telephone Encounter - Natalie Mora RN - 05/08/2023 12:58 PM EDT Neuro SPINE CARE COORDINATION QUICK NOTE Call to the pt at Dr. De La Cruz request - OR has been rescheduled for 07-11-23 Case message has been sent documented in this encounterMercy Health Springfield [facility] Medical Center08-17-2023 Miscellaneous Notes* Telephone Encounter - Natalie Mora [...] sent to our office. documented in this encounterMercy Health Springfield [facility] Medical Center08-10-2023 Miscellaneous Notes* Telephone Encounter - Natalie Moar RN - 04/27/2023 1:55 PM EDT Neuro SPINE CARE COORDINATION SURGERY SCHEDULING Patient accepts surgery date of 06-29-[address] De La Cruz. Planned procedure is Revision - extension of fusion to T2. PACC will be [place] 06-16-23 . [facility] : completed Medications reviewed [...] [0] Natalie Mora RN documented in this encounterMercy Health Springfield Regional Medical Center08-09-2023 Miscellaneous Notes* Telephone Encounter - Natalie Mora RN - 04/26/2023 3:39 PM EDT Neuro SPINE CARE COORDINATION QUICK NOTE Call to the pt to inquire surgical instrumentation OR completed [facility] - she has asked for records to be sent for review. documented in this encounterMercy Health Springfield Regional Medical Center06-29-2023 History of Present illness Narrative* Phillip Shah PA-C - 03/16/2023 7:10 AM EDT SPINE SURGICAL TRIAGE: LBP, numbness in the legs, trouble walking, weakness Has tried: muscle relaxant Previous surgery 2018 at [place] - scoliosis correction CT report states T3 screw placed into the spinal canal and lucency surrounding screws Order placed for scoli X-Ray. Will have her scheduled with deformity surgeon. * Lisandro Juice Dey - 03/10/2023 1:52 PM EDT Patient name: Yaneth Dennis Are you being referred by a [place] for Spine Health Provider or Pain Management Provider at [facility]? No If answer is YES please [...] the facility where the MRI/CT/myelogram was completed: [facility] Address: [address] [place] [address] MRI/CT/myelogram viewable in Epic: No If not, please provide [phone] to fax in imaging reports for review. [...] of where the surgery was completed: 2017 [facility] Address: [address] [place] [address] Additional Comments [phone] (Home Phone) documented in this encounterMercy Health Springfield [facility] Center10-19-2022 Hospital Discharge instructions Follow Up Care 07/06/2022 17:31:04 With:Britany HINES DO, FAM Address: [address] [place] [address]- When:Within 6 Month(s) [facility] 06[facility]20[facility] Evaluation + Plan note Future Scheduled Tests Radiology* XR Spine Cervical 4 or 5 Views 03/02/22 * XR Spine Thoracic 3 Views 03/02/22 [facility] Consult note* Clinical Note Date No Information [facility] Work Phone: Discharge summary* Clinical Note Date No Information [facility] Work Phone: Evaluation + Plan note Future Appointments Appointment Date:05/24/2022 03:00:00 PM Scheduled Provider:Britany HINES DO Location:[facility] Appointment Type: [facility] Evaluation + Plan note Future Appointments Appointment Date:10/06/2022 04:20:00 PM Scheduled Provider:Britany HINES DO Location:[facility] Appointment Type: [facility] Evaluation + Plan note Future Appointments Appointment Date:04/06/2023 04:20:00 PM Scheduled Provider:Britany HINES DO Location:[facility] Appointment Type: Open Future Scheduled Tests Laboratory* Insulin Level Total 10/06/22 * CBC w/ Auto Diff 10/06/22 * Comprehensive Metabolic Panel 10/06/22 * Lipid Panel 10/06/22 * Thyroid Stimulating Hormone 10/06/22 [facility] Evaluation + Plan note Future Appointments Appointment Date:04/06/2023 04:20:00 PM Scheduled Provider:Britany HINES DO Location:[facility] Appointment Type: Open Diagnostic Tests Pending * Insulin Level Total [facility]10[facility]ments Appointment Date:02/28/2023 03:20:00 PM Scheduled Provider:Bianka WOODS CNP Location:[facility] Appointment Type: [facility] Evaluation + Plan note Future Appointments Appointment Date:11/16/2023 02:40:00 PM Scheduled Provider:Bianka WOODS CNP Location:[facility] Appointment Type:FM Open Future Scheduled Tests Radiology* CT Abdomen/Pelvis w/ Contrast 06/20/23 [facility] Evaluation + Plan note Future Appointments Appointment Date:01/04/2024 12:00:00 PM Scheduled Provider:Jacey Colvin Location:[facility] Appointment Type:BH Therapy 60 Appointment Date:01/09/2024 12:00:00 PM Scheduled Provider:Jacey Colvin Location:[facility] Appointment Type:BH Therapy 60 Appointment Date:01/16/2024 02:00:00 PM Scheduled Provider:Jacey Colvin Location:[facility] Appointment Type:BH Therapy 60 Appointment Date:01/30/2024 03:00:00 PM Scheduled Provider:Jacey Colvin Location:[facility] Appointment Type:BH Therapy 60 Appointment Date:03/05/2024 03:00:00 PM Scheduled Provider:Jacey Colvin Location:[facility] Appointment Type:BH Therapy 60 Appointment Date:03/12/2024 03:00:00 PM Scheduled Provider:Jacey Colvin Location:[facility] Appointment Type:BH Therapy 60 Future Scheduled Tests Radiology* CT Abdomen/Pelvis w/ Contrast 06/20/23 [facility] evaluation + Plan note Future Appointments Appointment Date:01/09/2024 12:00:00 PM Scheduled Provider:Jacey Colvin Location:[facility] Appointment Type:BH Therapy 60 Appointment Date:01/16/2024 02:00:00 PM Scheduled Provider:Jacey Colvin Location:[facility] Appointment Type:BH Therapy 60 Appointment Date:01/24/2024 02:40:00 PM Scheduled Provider:Bianka WOODS CNP Location:[facility] Appointment Type:FM Open Appointment Date:01/30/2024 03:00:00 PM Scheduled Provider:Jacey Colvin Location:[facility] Appointment Type:BH Therapy 60 Appointment Date:03/05/2024 03:00:00 PM Scheduled Provider:Jacey Colvin Location:[facility] Appointment Type:BH Therapy 60 Appointment Date:03/12/2024 03:00:00 PM Scheduled Provider:Jacey Colvin Location:[facility] Appointment Type:BH Therapy 60 Future Scheduled Tests Radiology* CT Abdomen/Pelvis w/ Contrast 06/20/23 [facility] evaluation + Plan note Future Appointments Appointment Date:01/24/2024 02:40:00 PM Scheduled Provider:Bianka WOODS CNP Location:[facility] Appointment Type:FM Open Appointment Date:01/30/2024 03:00:00 PM Scheduled Provider:Jacey Colvin Location:[facility] Appointment Type:BH Therapy 60 Appointment Date:03/05/2024 03:00:00 PM Scheduled Provider:Jacey Colvin Location:[facility] Appointment Type:BH Therapy 60 Appointment Date:03/12/2024 03:00:00 PM Scheduled Provider:Jacey Colvin Location:[facility] Appointment Type:BH Therapy 60 Future Scheduled Tests Radiology* CT Abdomen/Pelvis w/ Contrast 06/20/23 [facility] evaluation + Plan note Future Appointments Appointment Date:03/05/2024 03:00:00 PM Scheduled Provider:Jacey Colvin Location:[facility] Appointment Type:BH Therapy 60 Appointment Date:03/11/2024 02:20:00 PM Scheduled Provider:Bianka WOODS CNP Location:[facility] Appointment Type:FM Open Appointment Date:03/12/2024 03:00:00 PM Scheduled Provider:Jacey Colvin Location:[facility] Appointment Type:BH Therapy 60 Future Scheduled Tests Radiology* CT Abdomen/Pelvis w/ Contrast 06/20/23 [facility] [place] Evaluation + Plan note Future Appointments Appointment Date:03/14/2024 06:30:00 PM Scheduled Provider: Location:[facility] Appointment Type:US Abdominal/Pelvis ([facility]) Appointment Date:03/27/2024 02:00:00 PM Scheduled Provider:Jacey Colvin Location:[facility] Appointment Type:BH Video Visit Therapy 60 Appointment Date:04/16/2024 03:00:00 PM Scheduled Provider:Jacey Colvin Location:[facility] Appointment Type: Therapy 60 Future Scheduled Tests Radiology* CT Abdomen/Pelvis w/ Contrast 06/20/23 * US Pelvis Non-OB Complete 03/14/24 * US Transvaginal Non-OB 03/14/24 [facility] Evaluation + Plan note Future Appointments Appointment Date:03/27/2024 02:00:00 PM Scheduled Provider:Jacey Colvin Location:[facility] Appointment Type: Video Visit Therapy 60 Appointment Date:04/16/2024 03:00:00 PM Scheduled Provider:Jacey Colvin Location:[facility] Appointment Type: Therapy 60 Future Scheduled Tests Radiology* CT Abdomen/Pelvis w/ Contrast 06/20/23 [facility] Future Appointments Appointment Date:08/14/2024 11:00:00 AM Scheduled Provider:MIRI MAX Location:[facility] Appointment Type:[facility] evaluation + Plan note Future Appointments Appointment Date:09/03/2024 01:00:00 PM Scheduled Provider:Jacey Colvin Location:[facility] Appointment Type: Video Visit Therapy 60 Future Scheduled Tests Radiology* XR Hip 2-3 Views Right 08/29/24 * XR Hip 2-3 Views Left 08/29/24 [facility] Evaluation + Plan note Future Appointments Appointment Date:09/03/2024 01:00:00 PM Scheduled Provider:Jacey Colvin Location:[facility] Appointment Type: Video Visit Therapy 60 [facility] Evaluation + Plan note Future Appointments Appointment Date:10/02/2024 03:00:00 PM Scheduled Provider:Jacey Colvin Location:[facility] Appointment Type:BH Therapy 60 Appointment Date:10/14/2024 12:30:00 PM Scheduled Provider: [facility] Appointment Type:EMG Bilateral Lower Extremity [facility] Evaluation + Plan note Future Appointments Appointment Date:10/14/2024 12:30:00 PM Scheduled Provider: [facility] Appointment Type:EMG Bilateral Lower Extremity [facility] Future Appointments Appointment Date:04/21/2025 08:30:00 AM Scheduled Provider: Location:[facility] [place] Appointment Type:PT FCE ([facility]) Future Scheduled Tests Radiology* MRI Spine Cervical w/o Contrast 11/27/24 * MRI Spine Lumbar w/o Contrast 11/27/24 * MRI Spine Thoracic w/o Contrast 11/27/24 [facility] note* Diagnosis Juvenile idiopathic scoliosis, unspecified spinal region- Primary [facility] Juvenile idiopathic scoliosis, unspecified spinal region [facility] Diagnosis Cervical spinal stenosis- Primary Spinal [...] Preoperative examination, unspecified [facility] Diagnosis Arthrodesis status Cervical spinal stenosis Spinal stenosis in cervical region S/P spinal fusion Arthrodesis status Spinal stenosis of lumbar region with neurogenic claudication Spinal stenosis, lumbar region, with neurogenic claudication Pre-op testing Preoperative examination, unspecified documented in this [facility]* Diagnosis Spinal stenosis in cervical region- Primary Cervical spinal stenosis Spinal stenosis in cervical region S/P spinal fusion Arthrodesis status Spinal stenosis of lumbar region with neurogenic claudication Spinal stenosis, lumbar region, with neurogenic claudication Pre-op testing Preoperative examination, unspecified [facility]* Diagnosis Preop examination- Primary Preoperative examination, unspecified Cervical spinal stenosis Spinal stenosis in cervical region S/P spinal fusion Arthrodesis status Spinal stenosis of lumbar region with neurogenic claudication Spinal stenosis, lumbar region, with neurogenic claudication Pre-op testing Preoperative examination, unspecified documented in this encounter [facility]* Diagnosis S/P spinal fusion- Primary Arthrodesis status documented in this encounter [facility]* Diagnosis Cervical spinal stenosis Spinal stenosis in cervical region S/P spinal fusion Arthrodesis status Spinal stenosis of lumbar region with neurogenic claudication Spinal stenosis, lumbar region, with neurogenic claudication Pre-op testing Preoperative examination, unspecified documented [facility]* Diagnosis 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) documented in this encounter [facility]* Diagnosis DDD (degenerative disc disease), thoracolumbar- Primary Degeneration of thoracic or thoracolumbar intervertebral disc History of spinal fusion [facility] Diagnosis DDD (degenerative disc disease), thoracolumbar- Primary Degeneration of thoracic or thoracolumbar intervertebral disc History of spinal fusion [facility]* Diagnosis Adolescent idiopathic scoliosis of thoracolumbar region- Primary Scoliosis (and kyphoscoliosis), idiopathic Chronic bilateral low back pain without sciatica documented in this encounter [facility]* Diagnosis Cervical spinal [...] unspecified obesity type documented [facility] this encounter [facility]* Diagnosis Thoracic [...] type Arthrodesis status documented [facility] this encounter [facility]* Diagnosis Thoracic [...] type Arthrodesis status documented in this encounter [facility] note* Diagnosis Osteoarthritis of lumbar spine, unspecified spinal osteoarthritis complication status- Primary documented [facility]* [...] status Arthrodesis status documented in this encounter [facility]* Diagnosis Dysmenorrhea- Primary Breast lump in female Lump or mass in breast Pelvic pain in female Unspecified symptom associated with female genital organs Menorrhagia with irregular cycle [facility]* Diagnosis PCOS (polycystic ovarian syndrome)- Primary Polycystic ovaries Pelvic congestion syndrome Follow-up exam Unspecified follow-up examination documented [facility]* Clinical Note Date No Information [facility] Work Phone: History of Past illness Narrative* Condition Effective Dates (start - stop) O utcome No Information [facility] Work Phone: History of Present illness Narrative* Encounter Date Complaint History Of Prese nt Illness No Information [facility] Work Phone: Hospital course Narrative No data available for this section [facility] Discharge instructions No data available for this section [facility] Instructions* Date Instruction Additional Infor mation No Information [facility] Work Phone: Progress note No data available for this section [facility] Progress note* Clinical Note Date No Information [facility] Work Phone: [facility] for referral (narrative)* Diagnostic Procedure Only (Routine) - Pending ReviewSpecialtyDiagnoses / ProceduresReferred By ContactReferred To ContactXR IMAGING Diagnoses Juvenile idiopathic scoliosis, unspecified spinal region Procedures XR SCOLIOSIS PA STAND/LAT 2V RADEX ENTIR THRC LMBR CRV SAC SPI W/SKULL 2/3 Phillip Cowan PA-C [address] [place] [address] Xr Imaging Referral IDStatusReasonStart DateExpiration DateVisits RequestedVisits [id number] Auto-Generated Referral [facility] for referral (narrative)* Diagnostic Procedure Only (Routine) - ClosedSpecialtyDiagnoses / ProceduresReferred By ContactReferred To ContactXR IMAGING Diagnoses Juvenile idiopathic scoliosis, unspecified spinal region Procedures XR SCOLIOSIS PA STAND/LAT 2V RADEX ENTIR THRC LMBR CRV SAC SPI W/SKULL 2/3 VW Phillip Shah PA-C [address] [place] [address] Xr Imaging Referral IDStatusReasonStart DateExpiration DateVisits RequestedVisits [id number] Auto-Generated Referral / [facility] for referral (narrative)* Diagnostic Procedure Only (Routine) - AuthorizedSpecialtyDiagnoses / ProceduresReferred By Contact Referred To ContactXR IMAGING Diagnoses Cervical spinal stenosis S/P spinal fusion Spinal stenosis of lumbar region with neurogenic claudication Pre-op testing Procedures XR SCOLIOSIS PA STAND/LAT 2V RADEX ENTIR THRC LMBR CRV SAC SPI W/SKULL 2/3 Phillip Shah PA-C [address] [place] [address] Xr Imaging Referral IDStatusJereCallicoon Center DateExpiration DateVisits RequestedVisits [id number] Auto-Generated Referral * Consult, Test, Treat (Routine) - AuthorizedSpecialtyDiagnoses / Procedures Referred By ContactReferred To Contact Diagnoses Cervical spinal stenosis S/P spinal fusion Spinal stenosis of lumbar region with neurogenic claudication Pre-op testing Procedures REFER TO PACC - PRE ANESTHESIA CONSULTATION CLINIC OFFICE/OUTPATIENT [facility] 60-74 MINUTES Phillip Shah PA-C [address] [place] [address] Referral IDStatusReasonStart DateExpiration DateVisits RequestedVisits [id number] PCP Requested Referral * Consult, Test, Treat (Routine) - AuthorizedSpecialtyDiagnoses / Procedures Referred By ContactReferred To [facility] Diagnoses Cervical spinal stenosis S/P spinal fusion Spinal stenosis of lumbar region with neurogenic claudication Pre-op testing Procedures CONSULT TO [facility] OFFICE/OUTPATIENT [facility] 60-74 MINUTES Phillip Shah PA-C [address] [place] [address] Referral IDStatusReasonStholton DateExpiration DateVisits RequestedVisits [id number] PCP Requested Referral [facility] for referral (narrative)* Diagnostic Procedure Only (Routine) - Pending ReviewSpecialtyDiagnoses / ProceduresReferred By Contact Referred To ContactXR IMAGING Diagnoses S/P spinal fusion Procedures XR SCOLIOSIS PA STAND/LAT 2V RADEX ENTIR THRC LMBR CRV SAC SPI W/SKULL 2/3 VW Kayleen Velasco MD [address] [place] [address] Xr Imaging [place] [address] Referral IDStatusReasonStholton DateExpiration DateVisits RequestedVisits [id number] Review Auto-Generated Referral / [facility] for referral (narrative)* Diagnostic Procedure Only (Routine) - ClosedSpecialtyDiagnoses / ProceduresReferred By ContactReferred To ContactXR IMAGING Diagnoses Cervical spinal stenosis S/P spinal fusion Spinal stenosis of lumbar region with neurogenic claudication Pre-op testing Procedures XR SCOLIOSIS PA STAND/LAT 2V RADEX ENTIR THRC LMBR CRV SAC SPI W/SKULL 2/3 Phillip Shah PA-C [address] [place] [address] Xr Imaging [place] [address] Referral IDStatusReasonCallicoon Center DateExpiration DateVisits RequestedVisits [id number] Auto-Generated Referral / [facility] for referral (narrative)* Diagnostic Procedure Only (Routine) - Pending ReviewSpecialtyDiagnoses / ProceduresReferred By Contact Referred To ContactXR IMAGING Diagnoses Fusion of spine of thoracolumbar region Procedures XR SCOLIOSIS PA STAND/LAT 2V RADEX ENTIR THRC LMBR CRV SAC SPI W/SKULL 2/3 Phillip Shah PA-C [address] [place] [id number] Xr Imaging [place] [address] Referral IDStatusReasonStart DateExpiration DateVisits RequestedVisits [id number] Review Auto-Generated Referral / * Physical Therapy (Routine) - Pending ReviewSpecialtyDiagnoses / Procedures Referred By ContactReferred To ContactRE[facility] Diagnoses Fusion of spine of thoracolumbar region Procedures CONSULT TO PHYSICAL THERAPY PHYSICAL THERAPY EVALUATION HIGH COMPLEX 45 MINS Phillip Shah PA-C [address] [place] [id number] [facility] [place] [address] [place] [address] Ref[facility]Stat[facility] DateExpiration DateVisits RequestedVisits [id number] Review Auto-Generated Referral / [facility] for referral (narrative) Referred by: BECK MALAGON, MIRI [facility] [place] Reason for referral (narrative)* Reason For Referral No Information [facility] Work Phone: Reason for visit Narrative* Diagnostic Procedure Only (Routine) - ClosedSpecialtyDiagnoses / ProceduresReferred By ContactReferred To ContactXR IMAGING Diagnoses Juvenile idiopathic scoliosis, unspecified spinal region Procedures XR SCOLIOSIS PA STAND/LAT 2V RADEX ENTIR THRC LMBR CRV SAC SPI W/SKULL 2/3 Phillip Shah PA-C [address] [place] [address] Xr Imaging Referral IDStatRutkarli DateExpiration DateVisits RequestedVisits [id number] Auto-Generated Referral / [facility] for visit Narrative* Diagnostic Procedure Only (Routine) - ClosedSpecialtyDiagnoses / ProceduresReferred By ContactReferred To Contact XR IMAGING Diagnoses Cervical spinal stenosis S/P spinal fusion Spinal stenosis of lumbar region with neurogenic claudication Pre-op testing Procedures XR SCOLIOSIS PA STAND/LAT 2V RADEX ENTIR THRC LMBR CRV SAC SPI W/SKULL 2/3 Phillip Shah PA-C [address] [place] [phone] Xr Imaging [place] [address] Referral IDStatusReasonCallicoon Center DateExpiration DateVisits RequestedVisits [id number] Auto-Generated Referral / [facility] for visit Narrative* MRI/CT (Routine) - Pending Review SpecialtyDiagnoses / ProceduresReferred By ContactReferred To ContactCT IMAGING Diagnoses Arthrodesis status Procedures CT LUMBAR SPINE WO IVCON CT LUMBAR SPINE W/O CONTRAST MATERIAL Tiny Benson MD [address] [place] [address] Phone: tel: fax: CT IMAGING [place] [address] Referral IDStatusReasonCallicoon Center DateExpiration DateVisits RequestedVisits [id number] Review Auto-Generated Referral Patient Cleared - Admin/Float Nurse/Director advise to proceed or did not respond [facility] for visit Narrative* Diagnostic Procedure Only (Routine) - ClosedSpecialtyDiagnoses / ProceduresReferred By ContactReferred To Contact XR IMAGING Diagnoses Arthrodesis status Procedures XR SCOLIOSIS PA STAND/LAT 2V RADEX ENTIR THRC LMBR CRV SAC SPI W/SKULL 2/3 VW Tiny Benson MD [facility] [place] [address] Phone: tel: fax: XR IMAGING [place] [address] Referral IDStatusReasonStart DateExpiration DateVisits RequestedVisits [id number] Auto-Generated Referral / [facility] of systems Narrative - Reported* System Pos/Neg Findings No Information [facility] Work Phone: Summary Purpose Family History [...] LUMBAR W/O CONTRAST MATERIAL Kavya Singh O, CREW CALLER.SALES REPRESENTATIVE TRAINEE [address] [place] [address] Mr Imaging [place] [address] Referral IDStatusReasonStart DateExpiration DateVisits RequestedVisits [id number] Auto-Generated Referral /[id number] / ProceduresReferred By ContactReferred To ContactCT IMAGING Diagnoses Chronic bilateral low back pain without sciatica Procedures CT THORACIC SPINE WO IVCON CT THORACIC SPINE W/O CONTRAST MATERIAL Sumeet De La Cruz MD [address] [facility] [place] [address] Ct Imaging [place] [address] Referral IDStatusReasonStart DateExpiration DateVisits RequestedVisits [id number] Auto-Generated Referral Clearance Not Met - Admin/Float Nurse/Director Advise to Postpone/Reschedule or Not Proceed [id number] / ProceduresReferred By ContactReferred To ContactCT IMAGING Diagnoses Chronic bilateral low back pain without sciatica Procedures CT LUMBAR SPINE WO IVCON CT LUMBAR SPINE W/O CONTRAST MATERIAL Sumeet De La Cruz MD [address] [facility] [place] [address] Ct Imaging [place] [address] Referral IDStatusReasonStart DateExpiration DateVisits RequestedVisits [id number] Auto-Generated Referral Clearance Not Met - Admin/Float Nurse/Director Advise to Postpone/Reschedule or Not Proceed [id number] / ProceduresReferred By ContactReferred To ContactMR IMAGING Diagnoses Adolescent idiopathic scoliosis of thoracolumbar region Procedures MRI LUMBAR SPINE WO IVCON MRI SPINAL CANAL LUMBAR W/O CONTRAST MATERIAL Sumeet De La Cruz MD [address] [place] [address] Mr Imaging [place] [address] Referral IDStatusReasonStart DateExpiration DateVisits RequestedVisits [id number] Auto-Generated Referral Clearance Not Met - Admin/Float Nurse/Director Advise to Postpone/Reschedule or Not Proceed [id number] / ProceduresReferred By ContactReferred To ContactMR IMAGING Diagnoses Adolescent idiopathic scoliosis of thoracolumbar region Procedures MRI THORACIC SPINE WO IVCON MRI SPINAL CANAL THORACIC W/O CONTRAST MATRL Sumeet De La Cruz MD [address] [place] [address] Mr Imaging [place] [address] Referral IDStatusReasonStart DateExpiration DateVisits RequestedVisits [id number] Auto-Generated Referral Clearance Not Met - Admin/Float Nurse/Director Advise to Postpone/Reschedule or Not Proceed [id number] / ProceduresReferred By ContactReferred To ContactXR IMAGING Diagnoses Adolescent idiopathic scoliosis of thoracolumbar region Procedures XR SCOLIOSIS PA STAND/LAT 2V RADEX ENTIR THRC LMBR CRV SAC SPI W/SKULL 2/3 VW Sumeet De La Cruz MD [address] [place] [address] Xr Imaging [place] [address] Referral IDStatusReasonStart DateExpiration DateVisits RequestedVisits [id number] Auto-Generated Referral [id number] / ProceduresReferred By ContactReferred To ContactCT IMAGING Diagnoses Arthrodesis status Procedures CT LUMBAR SPINE WO IVCON CT LUMBAR SPINE W/O CONTRAST MATERIAL Kavya Singh, CREW CALLER.SALES REPRESENTATIVE TRAINEE [address] [place] [phone] Imaging [place] [address] Referral IDStatusReasonStart DateExpiration DateVisits RequestedVisits [id number] Auto-Generated Referral / Additional Source Comments INFORMATION SOURCE (unrecogn ized section and content) DATE CREATED AUTHOR 03/13/2018 [facility] DATE CREATED AUTHOR AUTHOR'S ORGANIZ ATION 03/13/2018 [facility] DATE CREATED AUTHOR AUTHOR'S ORGANIZ ATION 01/29/2022 [facility] DATE CREATED AUTHOR AUTHOR'S ORGANIZ ATION 02/14/2024 [facility] DATE CREATED AUTHOR AUTHOR'S ORGANIZ ATION 03/13/2024 [facility] DATE CREATED AUTHOR AUTHOR'S ORGANIZ ATION 12/15/2024 [facility] DATE CREATED AUTHOR AUTHOR'S ORGANIZ ATION 12/17/2024 [facility] DATE CREATED AUTHOR AUTHOR'S ORGANIZ ATION 02/14/2025 [facility] DATE CREATED AUTHOR AUTHOR'S ORGANIZ ATION 02/25/2025 [facility] DATE CREATED AUTHOR AUTHOR'S ORGANIZ ATION 04/18/2025 [facility] DATE CREATED AUTHOR AUTHOR'S ORGANIZ ATION 05/01/2025 [facility] DATE CREATED AUTHOR AUTHOR'S ORGANIZ ATION 07/11/2025 [facility] DATE CREATED AUTHOR AUTHOR'S ORGANIZ ATION 07/21/2025 [facility] DATE CREATED AUTHOR AUTHOR'S ORGANIZ ATION 07/31/2025 [facility] EPIC Care Team (unrecognized sect ion and content) Team MemberRelationshipSpecialtyStart DateEnd Date Christopher Hutson CNP [address] [address] ReferringFamily Medicine03/07/23Team MemberRelationshipSpecialtyStart DateEnd Date Christopher Hutson CNP [address] [address] ReferringFamily Medicine03/07/23Team MemberRelationshipSpecialtyStart DateEnd Date Christopher Hutson CNP [address] [place] [address] [place] [address] ReferringFamily Medicine03/07/23Team MemberRelationshipSpecialtyStart DateEnd Date Christopher Hutson CNP [address] [address] ReferringFamily Medicine03/07/23Team MemberRelationshipSpecialtyStart DateEnd Date Christopher Hutson, SALES REPRESENTATIVE TRAINEE [address] [place] [address] ReferringFamily Medicine03/07/23Team MemberRelationshipSpecialtyStart DateEnd Date Christopher Hutson, SALES REPRESENTATIVE TRAINEE [address] [facility] [address] [place] [address] ReferringFamily Medicine03/07/23Team MemberRelationshipSpecialtyStart DateEnd Date Christopher Hutson, SALES REPRESENTATIVE TRAINEE [address] [facility] [address] [place] [address] ReferringFamily Medicine03/07/23Team MemberRelationshipSpecialtyStart DateEnd Date Christopher Hutson, SALES REPRESENTATIVE TRAINEE [address] [facility] [address] [place] [address] ReferringFamily Medicine03/07/23Team MemberRelationshipSpecialtyStart DateEnd Date Christopher Hutson, SALES REPRESENTATIVE TRAINEE [address] [facility] [address] [place] [address] ReferringFamily Medicine03/07/23Team MemberRelationshipSpecialtyStart DateEnd Date Bianka Woods MD [address] [place] [address], [place] [address] PCP - GeneralInternal Medicine06/16/23 Christopher Hutson, SALES REPRESENTATIVE TRAINEE [address] [facility] [address] [place] [address] ReferringFamily Medicine03/07/23Team MemberRelationshipSpecialtyStart DateEnd Date Bianka Woods MD [address] [place] [place] [address] PCP - GeneralInternal Medicine06/16/23 Christopher Hutson, SALES REPRESENTATIVE TRAINEE [address] [address] ReferringFamily Medicine03/07/23Team MemberRelationshipSpecialtyStart DateEnd Date Bianka Woods MD [address] [place] [address] PCP - GeneralInternal Medicine06/16/23 Christopher Hutson, SALES REPRESENTATIVE TRAINEE [address] [address] ReferringFamily Medicine03/07/23Team MemberRelationshipSpecialtyStart DateEnd Date Bianka Woods MD [address] [place] [address] PCP - GeneralInternal Medicine06/16/23 Christopher Hutson, CREW CALLER.SALES REPRESENTATIVE TRAINEE [address] [address] ReferringFamily Medicine03/07/23Team MemberRelationshipSpecialtyStart DateEnd Date Bianka Woods MD [address] [place] [address] PCP - GeneralInternal Medicine06/16/23 Christopher Hutson, CREW CALLER.SALES REPRESENTATIVE TRAINEE [address] [address] ReferringFamily Medicine03/07/23Team MemberRelationshipSpecialtyStart DateEnd Date Bianka Woods MD [address] [place] [address] PCP - GeneralInternal Medicine06/16/23 Christopher Hutson, CREW CALLER.SALES REPRESENTATIVE TRAINEE [address] [facility] [address] [place] [address] ReferringFamily Medicine03/07/23Team MemberRelationshipSpecialtyStart DateEnd Date Unallocated, Noms Provider [address] [place] [address] PCP - GeneralFamily Medicine10/12/23Team MemberRelationshipSpecialtyStart DateEnd Date Unallocated, Noms Provider [address] [place] [address] PCP - GeneralFamily Medicine10/12/23Team MemberRelationshipSpecialtyStart DateEnd Date Unallocated, Noms Provider [address] [place] [address] PCP - GeneralFamily Medicine10/12/23Team MemberRelationshipSpecialtyStart DateEnd Date Bianka Woods MD [address] [place] [address] PCP - GeneralInternal Medicine06/16/23 Christopher Hutson, CREW CALLER.SALES REPRESENTATIVE TRAINEE [address] [facility] [address] [place] [address] ReferringFamily Medicine03/07/23Team MemberRelationshipSpecialtyStart DateEnd Date Bianka Woods MD [address] [place] [place] [address] PCP - GeneralInternal Medicine06/16/23 Christopher Hutson, CREW CALLER.SALES REPRESENTATIVE TRAINEE [address] [facility] [address] [place] [address] ReferringFamily Medicine03/07/23Team MemberRelationshipSpecialtyStart DateEnd Date Bianka Woods MD [address] [place] [address] PCP - GeneralInternal Medicine06/16/23 Christopher Hutson, CREW CALLER.SALES REPRESENTATIVE TRAINEE [address] [facility] [address] [place] [address] ReferringFamily Medicine03/07/23Team MemberRelationshipSpecialtyStart DateEnd Date Bianka Woods MD [address] [place] [address] PCP - GeneralInternal Medicine06/16/23 Christopher Hutson, CREW CALLER.SALES REPRESENTATIVE TRAINEE [address] [facility] [address] [place] [address] ReferringFamily Medicine03/07/23Team MemberRelationshipSpecialtyStart DateEnd Date Christopher Hutson, CREW CALLER.SALES REPRESENTATIVE TRAINEE [address] [facility] [address] [place] [address] ReferringFamily Medicine03/07/23Team MemberRelationshipSpecialtyStart DateEnd Date Bianka Woods MD [address] [place] [address] PCP - GeneralInternal Medicine06/16/23 Christopher Hutson, CREW CALLER.SALES REPRESENTATIVE TRAINEE [address] [facility] [address] [place] [address] ReferringFamily Medicine03/07/23Team MemberRelationshipSpecialtyStart DateEnd Date Bianka Woods MD [address] [place] [address] PCP - GeneralInternal Medicine06/16/23 Christopher Hutson, CREW CALLER.SALES REPRESENTATIVE TRAINEE [address] [place] [id number] ReferringFamily Medicine03/07/23Team MemberRelationshipSpecialtyStart DateEnd Date Bianka Woods MD [address] [place] [address] PCP - GeneralInternal Medicine06/16/23 Christopher Hutson, CREW CALLER.SALES REPRESENTATIVE TRAINEE [address] [place] [id number] ReferringFamily Medicine03/07/23Team MemberRelationshipSpecialtyStart DateEnd Date Bianka Woods MD [address] [place] [address] PCP - GeneralInternal Medicine06/16/23 Christopher Hutson, CREW CALLER.SALES REPRESENTATIVE TRAINEE [address] [address] ReferringFamily Medicine03/07/23Team MemberRelationshipSpecialtyStart DateEnd Date Unallocated, Sejals MD Cathie [address] [place] [address] PCP - GeneralFamily Medicine10/12/23Team MemberRelationshipSpecialtyStart DateEnd Date Unallocated, Ryley Brand MD [address] [place] [address] PCP - GeneralFamily Medicine10/12/23Team MemberRelationshipSpecialtyStart DateEnd Date Bianka Woosd MD [address] [place] [address] PCP - GeneralInternal Medicine06/16/23 Christopher Hutson, CREW CALLER.SALES REPRESENTATIVE TRAINEE [address] [place] [id number] ReferringFamily Medicine03/07/23Team MemberRelationshipSpecialtyStart DateEnd Date Bianka Woods MD [address] [place] [address] PCP - GeneralInternal Medicine06/16/23 Christopher Hutson, CREW CALLER.SALES REPRESENTATIVE TRAINEE [address] [address] ReferringFamily Medicine03/07/23Team MemberRelationshipSpecialtyStart DateEnd Date Unallocated, Ryley Brand MD [facility] [place] [address] PCP - GeneralFamily Medicine10/12/23 Name Effective Dates (start - stop) Status Members No Information Team MemberRelationshipSpecialtyStart DateEnd Date Unallocated, Ryley Brand MD [address] [place] [address] PCP - GeneralFamily Medicine10/12/23Team MemberRelationshipSpecialtyStart DateEnd Date Unallocated, Ryley Brand MD [address] [place] [address] [place] [address] PCP - GeneralFamily Medicine10/12/23Team MemberRelationshipSpecialtyStart DateEnd Date Unallocated, Ryley Brand MD [address] [facility] [address] PCP - GeneralFamily Medicine10/12/23Team MemberRelationshipSpecialtyStart DateEnd Date Unallocated, Ryley Brand MD [address] [facility] [address] PCP - GeneralFamily Medicine10/12/23 Source Comments (unrecognize d section and content) In the event this informatio n is protected by the Federal Confidentiality of Alcohol and Drug Abuse Patient Records regulations: The Federal rules restrict any use of the information to criminally investigate or prosecute any alcohol or drug abuse patient.[facility] CenterIn the event this information is protected by the Federal Confidentiality of Alcohol and Drug Abuse Patient Records regulations: The Federal rules restrict any use of the information to criminally investigate or prosecute any alcohol or drug abuse patient.[facility] CenterIn the event this information is protected by the Federal Confidentiality of Alcohol and Drug Abuse Patient Records regulations: The Federal rules restrict any use of the information to criminally investigate or prosecute any alcohol or drug abuse patient.[facility] CenterIn the event this information is protected by the Federal Confidentiality of Alcohol and Drug Abuse Patient Records regulations: The Federal rules restrict any use of the information to criminally investigate or prosecute any alcohol or drug abuse patient.[facility] CenterIn the event this information is protected by the Federal Confidentiality of Alcohol and Drug Abuse Patient Records regulations: The Federal rules restrict any use of the information to criminally investigate or prosecute any alcohol or drug abuse patient.[facility] CenterIn the event this information is protected by the Federal Confidentiality of Alcohol and Drug Abuse Patient Records regulations: The Federal rules restrict any use of the information to criminally investigate or prosecute any alcohol or drug abuse patient.[facility] CenterIn the event this information is protected by the Federal Confidentiality of Alcohol and Drug Abuse Patient Records regulations: The Federal rules restrict any use of the information to criminally investigate or prosecute any alcohol or drug abuse patient.[facility] CenterIn the event this information is protected by the Federal Confidentiality of Alcohol and Drug Abuse Patient Records regulations: The Federal rules restrict any use of the information to criminally investigate or prosecute any alcohol or drug abuse patient.[facility] CenterIn the event this information is protected by the Federal Confidentiality of Alcohol and Drug Abuse Patient Records regulations: The Federal rules restrict any use of the information to criminally investigate or prosecute any alcohol or drug abuse patient.[facility] CenterIn the event this information is protected by the Federal Confidentiality of Alcohol and Drug Abuse Patient Records regulations: The Federal rules restrict any use of the information to criminally investigate or prosecute any alcohol or drug abuse patient.[facility] CenterIn the event this information is protected by the Federal Confidentiality of Alcohol and Drug Abuse Patient Records regulations: The Federal rules restrict any use of the information to criminally investigate or prosecute any alcohol or drug abuse patient.[facility] CenterIn the event this information is protected by the Federal Confidentiality of Alcohol and Drug Abuse Patient Records regulations: The Federal rules restrict any use of the information to criminally investigate or prosecute any alcohol or drug abuse patient.[facility] CenterIn the event this information is protected by the Federal Confidentiality of Alcohol and Drug Abuse Patient Records regulations: The Federal rules restrict any use of the information to criminally investigate or prosecute any alcohol or drug abuse patient.[facility] CenterIn the event this information is protected by the Federal Confidentiality of Alcohol and Drug Abuse Patient Records regulations: The Federal rules restrict any use of the information to criminally investigate or prosecute any alcohol or drug abuse patient.[facility] CenterIn the event this information is protected by the Federal Confidentiality of Alcohol and Drug Abuse Patient Records regulations: The Federal rules restrict any use of the information to criminally investigate or prosecute any alcohol or drug abuse patient.[facility] CenterIn the event this information is protected by the Federal Confidentiality of Alcohol and Drug Abuse Patient Records regulations: The Federal rules restrict any use of the information to criminally investigate or prosecute any alcohol or drug abuse patient.[facility] CenterIn the event this information is protected by the Federal Confidentiality of Alcohol and Drug Abuse Patient Records regulations: The Federal rules restrict any use of the information to criminally investigate or prosecute any alcohol or drug abuse patient.[facility] CenterIn the event this information is protected by the Federal Confidentiality of Alcohol and Drug Abuse Patient Records regulations: The Federal rules restrict any use of the information to criminally investigate or prosecute any alcohol or drug abuse patient.[facility] CenterIn the event this information is protected by the Federal Confidentiality of Alcohol and Drug Abuse Patient Records regulations: The Federal rules restrict any use of the information to criminally investigate or prosecute any alcohol or drug abuse patient.[facility] CenterIn the event this information is protected by the Federal Confidentiality of Alcohol and Drug Abuse Patient Records regulations: The Federal rules restrict any use of the information to criminally investigate or prosecute any alcohol or drug abuse patient.[facility] CenterIn the event this information is protected by the Federal Confidentiality of Alcohol and Drug Abuse Patient Records regulations: The Federal rules restrict any use of the information to criminally investigate or prosecute any alcohol or drug abuse patient.[facility] CenterIn the event this information is protected by the Federal Confidentiality of Alcohol and Drug Abuse Patient Records regulations: The Federal rules restrict any use of the information to criminally investigate or prosecute any alcohol or drug abuse patient.[facility] CenterIn the event this information is protected by the Federal Confidentiality of Alcohol and Drug Abuse Patient Records regulations: The Federal rules restrict any use of the information to criminally investigate or prosecute any alcohol or drug abuse patient.[facility] CenterIn the event this information is protected by the Federal Confidentiality of Alcohol and Drug Abuse Patient Records regulations: The Federal rules restrict any use of the information to criminally investigate or prosecute any alcohol or drug abuse patient.[facility] CenterIn the event this information is protected by the Federal Confidentiality of Alcohol and Drug Abuse Patient Records regulations: The Federal rules restrict any use of the information to criminally investigate or prosecute any alcohol or drug abuse patient.[facility] CenterIn the event this information is protected by the Federal Confidentiality of Alcohol and Drug Abuse Patient Records regulations: The Federal rules restrict any use of the information to criminally investigate or prosecute any alcohol or drug abuse patient.[facility] CenterIn the event this information is protected by the Federal Confidentiality of Alcohol and Drug Abuse Patient Records regulations: The Federal rules restrict any use of the information to criminally investigate or prosecute any alcohol or drug abuse patient.[facility] CenterIn the event this information is protected by the Federal Confidentiality of Alcohol and Drug Abuse Patient Records regulations: The Federal rules restrict any use of the information to criminally investigate or prosecute any alcohol or drug abuse patient.[facility] CenterIn the event this information is protected by the Federal Confidentiality of Alcohol and Drug Abuse Patient Records regulations: The Federal rules restrict any use of the information to criminally investigate or prosecute any alcohol or drug abuse patient.[facility] CenterIn the event this information is protected by the Federal Confidentiality of Alcohol and Drug Abuse Patient Records regulations: The Federal rules restrict any use of the information to criminally investigate or prosecute any alcohol or drug abuse patient.[facility] CenterIn the event this information is protected by the Federal Confidentiality of Alcohol and Drug Abuse Patient Records regulations: The Federal rules restrict any use of the information to criminally investigate or prosecute any alcohol or drug abuse patient.[facility] CenterIn the event this information is protected by the Federal Confidentiality of Alcohol and Drug Abuse Patient Records regulations: The Federal rules restrict any use of the information to criminally investigate or prosecute any alcohol or drug abuse patient.[facility] CenterIn the event this information is protected by the Federal Confidentiality of Alcohol and Drug Abuse Patient Records regulations: The Federal rules restrict any use of the information to criminally investigate or prosecute any alcohol or drug abuse patient.[facility] CenterIn the event this information is protected by the Federal Confidentiality of Alcohol and Drug Abuse Patient Records regulations: The Federal rules restrict any use of the information to criminally investigate or prosecute any alcohol or drug abuse patient.[facility] CenterIn the event this information is protected by the Federal Confidentiality of Alcohol and Drug Abuse Patient Records regulations: The Federal rules restrict any use of the information to criminally investigate or prosecute any alcohol or drug abuse patient.[facility] CenterIn the event this information is protected by the Federal Confidentiality of Alcohol and Drug Abuse Patient Records regulations: The Federal rules restrict any use of the information to criminally investigate or prosecute any alcohol or drug abuse patient.[facility] Reason for Visit (unrecogniz ed section and content) ReasonCommentsFollow UpReasonCommentsPatient UpdateReasonCommentsAppeal sent SpecialtyDiagnoses / ProceduresReferred By ContactReferred To ContactCT IMAGING Diagnoses Arthrodesis status Procedures CT LUMBAR SPINE WO IVCON CT LUMBAR SPINE W/O CONTRAST MATERIAL Kavya Singh O, CREW CALLER.SALES REPRESENTATIVE TRAINEE [id number] Imaging [facility] Referral IDStatusReasonStart DateExpiration DateVisits RequestedVisits [id number] Auto-Generated Referral /[id number] PainReasonCommentsPreOp CallReason CommentsSurgery deniedReasonCommentsCARE CONTINUUM ADVISOR ASSESSMENTReason CommentsQuestionReasonCommentsPost OpReasonCommentsEstablished PatientFollow Up SpecialtyDiagnoses / ProceduresReferred By ContactReferred To ContactPhysical Therapy Diagnoses Fusion of spine, thoracolumbar region back surgery - scoliosis Procedures SC PHYS THERAPY EVALUATION Sumeet De La Cruz MD [facility] [address] [place] [address] Hernan Morales, PT [address] [place] [address] Referral IDStatusReasonStart DateExpiration DateVisits RequestedVisits [id number] / Procedures Referred By ContactReferred To ContactMR IMAGING Diagnoses Spinal stenosis of lumbar region, unspecified whether neurogenic claudication present Procedures MRI LUMBAR SPINE WO IVCON MRI SPINAL CANAL LUMBAR W/O CONTRAST MATERIAL Kavya Singh O, CREW CALLER.SALES REPRESENTATIVE TRAINEE [address] [place] [address] Mr [address] [place] [address] Referral IDStatusReasonStholton DateExpiration DateVisits RequestedVisits [id number] Auto-Generated Referral /[id number] encounter-disregardReasonComments ResultsPatient QuestionReasonCommentsEstablished PatientReasonCommentsDiscuss cycleslump on breastReasonCommentsER [...] BE BASED ON THE PRIMARY CLINICAL RECORDS. [facility]. provides no warranty or guarantee of the accuracy or completeness of information in this document.
[2025-08-08] MEDS: MORPHINE SULFATE 2 MG/ML SYRINGE IV (19:37)
--- NOTE | 2025-08-08 20:13 | ED.GENADUL1 ---
HPI HPI - General Adult General Chief complaint: Abdominal Pain Stated complaint: RT SIDE RIB PAIN - SURGERY 08/07/2025 Time Seen by Provider: 08/08/25 17:02 Source: patient Mode of arrival: Wheelchair Limitations: no limitations History of Present Illness HPI narrative: 24-year-old female was brought to the emergency room accompanied with family with a chief complaint of postoperative chest pain. She states she was having difficulty taking in a deep breath and pain and a popping sensation to the right chest wall area. Patient had a bilateral salpingectomy performed by Dr. Kiser yesterday. She states she did have some of the pain yesterday when she left postsurgically but pain worsened today. She denies any fevers or chills nausea or vomiting vital signs are stable is not currently febrile. Initial visualization of incisions on her abdomen are closed with Steri-Strips and look well at this time Related Data Home Medications ?Medication ?Instructions ?Recorded ?Confirmed dextroamphetamine-amphetamine 10 10 mg PO DAILY 07/30/25 08/08/25 mg tablet doxepin 3 mg tablet 3 mg PO QPM 07/30/25 08/08/25 escitalopram oxalate 10 mg tablet 10 mg PO QPM 07/30/25 08/08/25 escitalopram oxalate 20 mg tablet 20 mg PO QPM 07/30/25 08/08/25 gabapentin 300 mg capsule 300 mg PO Q8H PRN back pain 07/30/25 08/08/25 hydroxyzine HCl 25 mg tablet 25 mg PO Q6H PRN anxiety 07/30/25 08/08/25 Previous Rx's ?Medication ?Instructions ?Recorded hydrocodone 5 mg-acetaminophen 325 1 tab PO Q4H PRN pain 4 days #16 08/07/25 mg tablet tabs ibuprofen 800 mg tablet 800 mg PO Q8H PRN pain 14 days #40 08/07/25 tabs Allergies Allergy/AdvReac Type Severity Reaction Status Date / Time amoxicillin Allergy Hives Verified 08/08/25 17:07 cefdinir Allergy Hives Verified 08/08/25 17:07 erythromycin base Allergy Hives Verified 08/08/25 17:07 Opioid HPI Opioid Management Most Recent Opioid Data: Last Pain Scale 8 Today, 19:37 Last Pain Assessment 08/07/25, 16:45 Last MAR Pain Assessment Today, 19:37 Review of Systems ROS Status of ROS 10 or more systems reviewed and unremarkable except as noted in history and below [facility] Medical History (Updated 08/08/25 @ 20:12 by Tamra Epstein) Chronic back pain ?M54.9 - Dorsalgia, unspecified (ICD-10) ?G89.29 - Other chronic pain (ICD-10) Scoliosis ?M41.9 - Scoliosis, unspecified (ICD-10) Low iron ?E61.1 - Iron deficiency (ICD-10) Back pain ?M54.9 - Dorsalgia, unspecified (ICD-10) Sleep disorder ?G47.9 - Sleep disorder, unspecified (ICD-10) PTSD (post-traumatic stress disorder) ?F43.10 - Post-traumatic stress disorder, unspecified (ICD-10) Panic attacks ?F41.0 - Panic disorder [episodic paroxysmal anxiety] (ICD-10) Depression ?F32.A - Depression, unspecified (ICD-10) Anxiety ?F41.9 - Anxiety disorder, unspecified (ICD-10) Attention deficit hyperactivity disorder ?F90.9 - Attention-deficit hyperactivity disorder, unspecified type (ICD-10) Pelvic congestion syndrome ?N94.89 - Other specified conditions associated with female genital organs and menstrual cycle (ICD-10) Request for sterilization ?Z30.2 - Encounter for sterilization (ICD-10) Heartburn ?R12 - Heartburn (ICD-10) Irregular heart beat ?I49.9 - Cardiac arrhythmia, unspecified (ICD-10) Surgical History (Updated 07/30/25 @ 11:25 by Drea Faustin NP) History of spinal fusion for scoliosis ?Z98.1 - Arthrodesis status (ICD-10) ?Z87.39 - Personal history of other diseases of the musculoskeletal system and connective tissue (ICD-10) History of myringotomy ?Z98.890 - Other specified postprocedural states (ICD-10) Family History (Updated 07/30/25 @ 11:14 by Drea Faustin NP) Other Family history of cancer Family history of myocardial infarction Family history of stroke Social History (Updated 07/30/25 @ 11:09 by Drea Faustin NP) Within the past year, how often did you have a drink containing alcohol: never Score interpretation: A score less than 3 is consistent with normal alcohol consumption. Smoking status: Current some day smoker Non-prescribed substance use: cannabis (any form) Highest level of school completed/degree received: high school graduate Little interest or pleasure in doing things: not at all Feeling down, depressed, or hopeless: several days Exam Narrative Exam Narrative: All Systems are negative except as noted/marked.All systems reviewed and otherwise negative Nurses note and vital signs reviewed and patient is not hypoxic. General: The patient appears well and in no apparent distress. Patient is resting comfortably on cart. Skin: Warm, dry, no pallor noted. There is no rash noted. Head: Normocephalic, atraumatic Eye: Normal conjunctiva, no drainage, EOMI. PERRL Ears, Nose, Mouth, and Throat: oral mucosa is moist. Nares patent. Mouth without vesicles. Ear canals patent. Tm's without Erythema Cardiovascular: Regular Rate and Rhythm Respiratory: Patient is in no distress, no accessory muscle use, lungs are clear to auscultation, no wheezing, rales or rhonchi Back: non-tender, no CVA tenderness bilaterally to percussion. Musculoskeletal: The patient has no evidence of calf tenderness, no pitting edema, symmetrical pulses noted bilaterally Neurological: A&O x4, normal speech Psychiatric: Cooperative Constitutional Vital Signs, click to edit/add: Last Vital Signs Temp 98 F 08/08/25 17:07 Pulse 56 L 08/08/25 19:40 Resp 14 08/08/25 19:40 BP 100/51 08/08/25 19:30 Pulse Ox 100 08/08/25 19:40 O2 Del Method Room Air 08/08/25 18:14 Course Vital Signs Vital signs: Vital Signs Temperature 98 F 08/08/25 17:07 Pulse Rate 66 08/08/25 17:07 Respiratory Rate 12 08/08/25 17:07 Blood Pressure 107/73 08/08/25 17:07 Pulse Oximetry 100 08/08/25 17:07 Oxygen Delivery Method Room Air 08/08/25 17:07 Temperature 98 F 08/08/25 17:07 Pulse Rate 56 L 08/08/25 19:40 Respiratory Rate 14 08/08/25 19:40 Blood Pressure 100/51 08/08/25 19:30 Pulse Oximetry 100 08/08/25 19:40 Oxygen Delivery Method Room Air 08/08/25 18:14 Medical Decision Making [facility] Narrative Medical decision making narrative: 24-year-old female was brought to the emergency room accompanied with family with a chief complaint of postoperative chest pain. She states she was having difficulty taking in a deep breath and pain and a popping sensation to the right chest wall area. Patient had a bilateral salpingectomy performed by Dr. Kiser yesterday. She states she did have some of the pain yesterday when she left postsurgically but pain worsened today. She denies any fevers or chills nausea or vomiting vital signs are stable is not currently febrile. Initial visualization of incisions on her abdomen are closed with Steri-Strips and look well at this time Patient presented here to the emergency room chief complaint of chest wall pain postoperative salpingectomy performed laparoscopically yesterday. Patient's vital signs are stable here. She is not hypoxic or tachycardic. CTA of the chest was performed to rule out PE. Patient does have postoperative normal free air noted. Patient has been medicated here with pain medicines. She is cleared to be discharged home. She looks well at this time. She will follow-up with Dr. Kiser's office as scheduled first week of August. Differential Diagnosis Differential Diagnosis: chest wall pain, pe, post op pain Medical Records Medical records reviewed: Yes I reviewed the patient's medical records Lab Data Lab results reviewed: Yes I reviewed the patient's lab results Labs: Lab Results 08/08/25 Range/Units 18:02 WBC 11.7 H (4.0-11.0) 10^3/uL RBC 4.39 (4.20-5.40) 10^6/uL Hgb 13.6 (12.0-16.0) g/dL Hct 41.4 (36.0-48.0) % MCV 94.3 (81.0-99.0) fL MCH 31.0 (26.7-34.0) pg MCHC 32.9 (29.9-35.2) g/dL RDW 13.5 (11.0-15.0) % Plt Count 183 (150-450) 10^3/uL MPV 11.3 (9.5-13.5) fL Neut % (Auto) 66.6 (43.0-75.0) % Lymph % (Auto) 25.6 (20.5-60.0) % [place] % (Auto) 6.9 (1.7-12.0) % Eos % (Auto) 0.3 L (0.9-7.0) % Baso % (Auto) 0.3 (0.2-2.0) % Neut # (Auto) 7.8 H (1.4-6.5) 10^3/uL Lymph # (Auto) 3.0 (1.2-3.8) 10^3/uL [place] # (Auto) 0.8 (0.3-0.8) 10^3/uL Eos # (Auto) 0.0 (0.0-0.7) 10^3/uL Baso # (Auto) 0.0 (0.0-0.1) 10^3/uL Abs Immat Gran (auto) 0.04 H (0.00-0.03) 10^3/uL Imm/Tot Granulo (auto) 0.3 (0.0-0.5) % PT 10.9 (9.0-11.6) sec INR 1.03 APTT 26.1 (22.3-36.2) sec Sodium 143 (136-145) mmol/L Potassium 3.1 L (3.5-5.1) mmol/L Chloride 107 (98-107) mmol/L Carbon Dioxide 30.4 (21.0-32.0) mmol/L Anion Gap 8.7 BUN 8.0 (7.0-18.0) mg/dL Creatinine 0.80 (0.55-1.02) mg/dL Est GFR ( Amer) >60 (>=60 mL/min/1.73m^2) Est GFR (Non-Af Amer) >60 (>=60 mL/min/1.73m^2) BUN/Creatinine Ratio 10.0 Glucose 92 (74-106) mg/dL Calcium 8.9 (8.5-10.1) mg/dL Total Bilirubin 0.4 (0.2-1.0) mg/dL AST 19 (15-37) U/L ALT 31 (14-59) U/L Alkaline Phosphatase 62 (46-116) U/L Troponin I High Sens 4.7 (4.0-51.3) pg/mL Total Protein 7.1 (6.4-8.2) g/dL Albumin 3.9 (3.4-5.0) g/dL Globulin 3.2 g/dL Albumin/Globulin Ratio 1.2 Discharge Plan Discharge Chief Complaint: Abdominal Pain Clinical Impression: Post-operative pain Patient Disposition: Home, Self-Care Time of Disposition Decision: 20:09 Condition: Good Prescriptions / Home Meds: No Action escitalopram oxalate 10 mg tablet 10 mg PO QPM escitalopram oxalate 20 mg tablet 20 mg PO QPM gabapentin 300 mg capsule 300 mg PO Q8H PRN (Reason: back pain) doxepin 3 mg tablet 3 mg PO QPM dextroamphetamine-amphetamine 10 mg tablet 10 mg PO DAILY hydroxyzine HCl 25 mg tablet 25 mg PO Q6H PRN (Reason: anxiety) ibuprofen 800 mg tablet 800 mg PO Q8H PRN (Reason: pain) 14 Days Qty: 40 0RF hydrocodone-acetaminophen 5-325 mg tablet 1 tab PO Q4H PRN (Reason: pain) 4 Days Qty: 16 0RF Print Language: Kosovan Instructions: Thoracic Pain (ED) Additional Instructions: your are experiencing post operative pain from air in the thoracic cavity. continue to deep breath and move to help relieve pain. continue to take pain medication as prescrived Referrals: Stevenson Kiser DO [Physician, PROTECTION ENGINEER] - 1 week Referral Note: as scheduled for post op Holley Nur NP [Primary Care Provider] - 1 week
== END 2025-08-08 20:27 | disposition home or self-care (01) ==
PROVIDERS: Physician Assistant; Emergency Provider Emergency Medicine; PCP Nurse Practitioner Family
DX: G89.18 Other acute postprocedural pain (principal); Z98.890 Other specified postprocedural states
CPT/HCPCS: 36415; 71275; 80053; 84484; 85025; 85610; 85730; 93005; 96374; 96375; 99285; J1885; J2270; J2405; Q9967